=== PATIENT | male | born 1960 | race Caucasian/White ===

== ENCOUNTER 2016-07-02 07:58 | Inpatient (IN) | payer OTHER ==
[~2016-07-02] VITALS: Ht 170.2 cm; Wt 104.0 kg
[~2016-07-02 07:58] MED LIST: ASP81 PO; ATOR80TA75 PO; CARV12.579 PO; CLOP75TA27 PO; FURO40TA4 PO; GABA300C16 PO; HYDR-3670 PO; HYDR-906 PO; ISOS20TA19 PO; LANT3I SC; LISI10TA2 PO; MED4DP PO; NOVO3I SC; RANO10002 PO
[2016-07-02] MEDS ORDERED: SODIUM CHLORIDE 0.9% 1L BAG IV* STA (08:04)
[2016-07-02] MEDS ORDERED: ACETAMINOPHEN 325 MG TAB PO STA (08:04)
[2016-07-02] MEDS ORDERED: CEFEPIME 2GM/50 ML (PMX) 50 ML IVPB STA (08:04)
--- NOTE | 2016-07-02 08:21 | RADRPT ---
PROCEDURE: XR Chest. CLINICAL INDICATION: Chest pain. Shortness of breath. TECHNIQUE: Single frontal chest x-ray. COMPARISON: 06/11/2016 FINDINGS: Focal consolidation is seen in the lateral periphery of the right mid lung zone, new when compared t o the prior study. Findings are consistent with new acute pneumonia. There is patchy atelectasis w ithin the lung bases bilaterally, stable over time. The cardiomediastinal silhouette is unchanged a nd unremarkable. Prominent epicardial fat pads are identified bilaterally. No pneumothorax is seen . No pleural effusion is identified. The surrounding osseous structures are unremarkable. IMPRESSION: 1. New acute pneumonia in the lateral periphery of the right mid lung. 2. Minor atelectasis in the lung bases, stable. RPTAT: PP .Marcus Felder MD, MD Date Time Electronically viewed and signed by .Marcus Felder MD, on 07/02/2016 08:20 .B/
[2016-07-02] MEDS ORDERED: VANCOMYCIN 1 GM (PMX) 250 ML IVPB ONE (08:30)
[2016-07-02] MEDS ORDERED: NOVO3I SC (08:50)
[2016-07-02 09:24] LABS: BASOPHILS % 0.2 % (0.0-2.0); EOSINOPHILS % 0.1 % (0.0-7.0); HEMATOCRIT 47.6 % (42.0-52.0); HEMOGLOBIN 15.9 g/dl (14.0-18.0); LYMPHOCYTES # 0.9 10^3/ul (0.8-2.9); LYMPHOCYTES % 6.8 % (15.0-51.0); MEAN CORPUSCULAR HEMOGLOBIN 26.5 pg (29.0-33.0); MEAN CORPUSCULAR HGB CONC 33.4 g/dl (32.0-37.0); MEAN CORPUSCULAR VOLUME 79.3 fl (82.0-101.0); MEAN PLATELET VOLUME 10.5 fl (7.4-10.4); MONOCYTE # 0.5 10^3/ul (0.3-0.9); MONOCYTES % 3.8 % (0.0-11.0); NEUTROPHIL # 11.6 10^3/ul (1.6-7.5); NEUTROPHILS % 89.1 % (39.0-77.0); PLATELET COUNT 150 10^3/UL (140-440); RED BLOOD COUNT 6.01 10^6/ul (4.70-6.10); RED CELL DISTRIBUTION WIDTH 17.1 % (11.5-14.5)
[2016-07-02 09:29] LABS: INR 1.1; PARTIAL THROMBOPLASTIN TIME 29.5 Sec (25.0-35.0); PROTIME 14.2 Sec (12.2-14.2); PT RATIO 1.1
[2016-07-02 09:30] LABS: ALBUMIN 3.6 g/dl (3.3-4.9); CONDITION 1; LH ANALYZER COMMENTS 1; SUSPECT 1
[2016-07-02 09:33] LABS: BILIRUBIN,INDIRECT 0.8 mg/dl (0-1.1); BILIRUBIN,TOTAL 0.8 mg/dl (0.2-1.3); CREATININE 1.65 mg/dl (0.61-1.24); POTASSIUM 5.6 mmol/L (3.5-5.1); TOTAL PROTEIN 7.5 g/dl (6.1-8.1)
[2016-07-02 09:34] LABS: CALCIUM 8.5 mg/dl (8.4-10.2)
[2016-07-02 09:45] LABS: TROPONIN-I 0.012 ng/ml (0.00-0.12)
[2016-07-02] MEDS ORDERED: ONDANSETRON 4 MG INJ IV PRN (10:00)
[2016-07-02] MEDS ORDERED: ACETAMINOPHEN 325 MG TAB PO PRN (10:00)
[2016-07-02 10:24] LABS: ALBUMIN/GLOBULIN RATIO 0.92
[2016-07-02] MEDS ORDERED: LEVOFLOXACIN 500MG/D5W (PMX) 100 ML IVPB SCH (11:00)
[2016-07-02] MEDS ORDERED: morphine 4 MG/ML VIAL IV STA (11:17)
[2016-07-02] MEDS ORDERED: DOCUSATE SODIUM 100 MG CAP PO PRN (11:30)
[2016-07-02] MEDS ORDERED: NACL 0.9% 3 ML SYG IV SCH (11:30)
[2016-07-02] MEDS ORDERED: ACETAMINOPHEN 650 MG SUPP PR PRN (11:30)
[2016-07-02 11:35] LABS: ADD UMIC YES; URINE BILIRUBIN (Dip) NEGATIVE (NEGATIVE); URINE BLOOD (Dip) 2+ (NEGATIVE); URINE COLOR LT. YELLOW (YELLOW); URINE KETONES (Dip) TRACE (NEGATIVE); URINE LEUKOCYTE ESTERASE (Dip) NEGATIVE (NEGATIVE); URINE NITRITE (Dip) NEGATIVE (NEGATIVE); URINE TOTAL PROTEIN (Dip) 4+ (NEGATIVE); URINE UROBILINOGEN (Dip) 0.2 E.U./dL (0.1-1.0)
[2016-07-02 11:47] VITALS: TEMP 98.5
[2016-07-02 11:54] LABS: URINE RBCS 0-2 /HPF (0)
[2016-07-02] MEDS ORDERED: DEXTROSE 50% 50 ML SYRINGE IV PRN ×2 (12:00)
[2016-07-02] MEDS ORDERED: GLUCOSE GEL 15 GRAM TUBE BUCCAL PRN (12:00)
[2016-07-02] MEDS ORDERED: GLUCOSE GEL 15 GRAM TUBE PO PRN ×2 (12:00)
[2016-07-02] MEDS ORDERED: CEFTRIAXONE 1 GM/50 ML (PMX) 50 ML IVPB SCH (12:00)
[2016-07-02] MEDS ORDERED: GLUCAGON 1 MG INJ IM PRN (12:00)
[2016-07-02] MEDS: INSULIN ASPART [NOVOLOG] 3 ML PEN SC SCH ×5 (13:24→20:30)
--- NOTE | 2016-07-02 13:27 | ERA ---
ER Documentation Chief Complaint Date/Time DATE: 07/02/16 TIME: 13:25 Chief Complaint CHEST PAIN/SOB SINCE LAST NIGHT;SL NITRO @ 0700 HELPED CP HPI Patient is a 55-year-old male with coronary disease who presents with chest pain and shortness of breath. He has had 2 days of worsening cold symptoms. He is fever. He has had a cough as well. His primary doctor is Dr. Garcia Chau. He did try nitroglycerin at 7 AM which helped with his pain. ROS All systems reviewed and are negative except as per history of present illness. Medications Home Meds Active Scripts Isosorbide Dinitrate* (Isosorbide Dinitrate*) 20 Mg Tablet, 20 MG PO TID for 30 Days, #90 TAB Prov:CRISTIN COMBS MD 06/13/16 Carvedilol* (Carvedilol*) 12.5 Mg Tablet, 6.25 MG PO BID for 30 Days, #60 TAB Prov:CRISTIN COMBS MD 06/13/16 Insulin Glargine* (Lantus*) 100 Unit/Ml Soln, 33 UNIT SC HS for 30 Days Prov:JOHN VALE NP 05/08/16 Furosemide (Lasix) 40 Mg Tab, 40 MG PO DAILY for 30 Days, TAB Prov:JESE MCCOY 03/26/16 Lisinopril* (Lisinopril*) 10 Mg Tablet, 10 MG PO DAILY, #30 TAB Prov:JESE MCCOY 03/26/16 Hydralazine Hcl* (Hydralazine Hcl*) 10 Mg Tablet, 10 MG PO Q8 for 30 Days, TAB Prov:JESE MCCOY 03/26/16 Gabapentin* (Gabapentin*) 300 Mg Capsule, 300 MG PO TID for 30 Days, CAP Prov:JESE MCCOY 03/26/16 Clopidogrel Bisulfate (Clopidogrel) 75 Mg Tablet, 75 MG PO DAILY for 30 Days, TAB Prov:JESE MCCOY 03/26/16 Atorvastatin* (Atorvastatin*) 80 Mg Tablet, 80 MG PO HS for 30 Days, TAB Prov:JESE MCCOY 03/26/16 Aspirin (Aspirin) 81 Mg Chew, 81 MG PO DAILY, #30 TAB 12 Refills Prov:JESE MCCOY 03/26/16 Reported Medications Insulin Aspart* (Novolog Insulin Pen*) 100 Unit/Ml Soln, 13 UNIT SC AC MEALS, EA 07/02/16 Ranolazine* (Ranexa*) 1,000 Mg Tab.sr.12h, 1000 MG PO Q12, TAB 06/08/16 Discontinued Scripts Methylprednisolone* (Medrol* DOSE PACK) 4 Mg/Dose-Pack Tab.ds.pk, 4 MG PO . DIRECTED for 7 Days, PACKET Prov:CRISTIN COMBS MD 06/13/16 Insulin Aspart* (Novolog Insulin Pen*) 100 Unit/Ml Soln, 10 UNIT SC WITH MEALS for 30 Days Prov:VALE,JOHN V. WAG[employer] WASHER 05/08/16 Hydrocodone/Acetaminophen ([place] 5-325 Tablet) 1 Each Tablet, 1 EACH PO Q6H for PAIN, #20 TAB Prov:VALE,JOHN V. WAGON WASHER 05/08/16 Isosorbide Dinitrate* (Isosorbide Dinitrate*) 20 Mg Tablet, 20 MG PO TID for 30 Days, TAB Prov:JESE MCCOY 03/26/16 Allergies Allergies: Coded Allergies: No Known Allergy (Unverified , 07/02/16) PMhx/Soc History of Surgery: No (Kidney stones removal) Hx 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 Disorder: No Hx Respiratory Disorders: Yes (SOB) Hx Cardiac Disorders: Yes (Cardiomyopathy, VA, CAD) Hx Psychiatric Problems: No Hx Miscellaneous Medical Probl: Yes (10 Stents, Pulmonary HTN) Hx Alcohol Use: No Hx Substance Use: No Hx Tobacco Use: Yes (former smoker) Smoking Status: Former smoker FmHx Family History: diabetes Physical Exam Vitals Vital Signs Date Time Temp Pulse Resp B/P Pulse Ox O2 Delivery O2 Flow Rate FiO2 07/02/16 09:30 Nasal Cannula 2.0 07/02/16 09:30 96 20 157/82 96 Room Air 07/02/16 08:50 Nasal Cannula 2 07/02/16 08:01 101.5 99 18 193/84 89 Physical Exam Const: Moderate distress Head: Atraumatic Eyes: Normal Conjunctiva ENT: Normal External Ears, Nose and Mouth. Neck: Full range of motion..~ No meningismus. Resp: Decreased breath sounds bilaterally Cardio: Regular rate and rhythm, no murmurs Abd: Soft, non tender, non distended. Normal bowel sounds Skin: No petechiae or rashes Back: No midline or flank tenderness Ext: No cyanosis, or edema Neur: Awake and alert Psych: Normal Mood and Affect Result Diagram: 07/02/1604 07/02/16 0904 Results 24 hrs Laboratory Tests Test 07/02/16 09:04 Activated Partial Thromboplast Time 29.5Sec Alanine Aminotransferase (ALT/SGPT) 103IU/L Albumin 3.6g/dl Albumin/Globulin Ratio 0.92 Alkaline Phosphatase 208IU/L Anion Gap 17 Aspartate Amino Transf (AST/SGOT) 84IU/L Basophils # 0.010^3/ul Basophils % 0.2% Blood Morphology Comment Blood Urea Nitrogen 52mg/dl Calcium Level 8.5mg/dl Carbon Dioxide Level 25mmol/L Chloride Level 94mmol/L Creatinine 1.65mg/dl Differential Comment AUTO w/SCAN Direct Bilirubin 0.00mg/dl Eosinophils # 0.010^3/ul Eosinophils % 0.1% Globulin 3.90g/dl Glucose Level 395mg/dl Hematocrit 47.6% Hemoglobin 15.9g/dl INR International Normalized Ratio 1.10 Indirect Bilirubin 0.8mg/dl Lactic Acid Level 1.5mmol/L Lymphocytes # 0.910^3/ul Lymphocytes % 6.8% Mean Corpuscular Hemoglobin 26.5pg Mean Corpuscular Hemoglobin Concent 33.4g/dl Mean Corpuscular Volume 79.3fl Mean Platelet Volume 10.5fl Monocytes # 0.510^3/ul Monocytes % 3.8% Neutrophils # 11.610^3/ul Neutrophils % 89.1% Nucleated Red Blood Cells # 0.010^3/ul Nucleated Red Blood Cells % 0.0/100WBC Platelet Count 84586^3/UL Potassium Level 5.6mmol/L Prothrombin Time 14.2Sec Prothrombin Time Ratio 1.1 Red Blood Count 6.0110^6/ul Red Cell Distribution Width 17.1% Sodium Level 130mmol/L Total Bilirubin 0.8mg/dl Total Protein 7.5g/dl Troponin I 0.012ng/ml White Blood Count 13.010^3/ul Current Medications Medications (Trade) Dose Ordered Sig/Ca Route PRN Reason Start Time Stop Time Status Last Admin Dose Admin Sodium Chloride (NS) 3,410 ml BOLUS OVER 2 HOURS STAT IV* 07/02/16 08:04 07/02/16 08:05 DC 07/02/16 09:05 Acetaminophen 650 mg 650 mg ONCE STAT PO 07/02/16 08:04 07/02/16 08:06 DC 07/02/16 09:04 Cefepime HCl 50 ml @ 100 mls/hr ONCE STAT IVPB 07/02/16 08:04 07/02/16 08:33 DC 07/02/16 09:18 Vancomycin HCl (Vancocin) 250 ml @ 125 mls/hr ONCE ONCE IVPB 07/02/16 08:30 07/02/16 10:29 DC 07/02/16 11:41 Procedures/MDM EKG read by me: Rate/Rhythm: Regular rate and rhythm at a normal rate Intervals: Normal Impression: No evidence of ischemia or arrhythmia Chest X-ray 1V Interpreted by me: Soft Tissue: No acute abnormalities Bones: No acute abnormalities Mediastinum/Cardiac Silhouette/Lungs: Right upper lobe pneumonia Admit MDM: Patient's infectious symptoms have not stabilized and the patient is at risk of rapid decompensation. The patient will be admitted for careful hydration, antibiotic therapy, and infectious source control. Severe Sepsis criteria: Infectious source: Pneumonia End organ damage indicated by: Elevated LFTs Sepsis Management: Time of recognition of sepsis: Upon arrival Within 3 hours of recognition: Blood cultures x 2 before broad-spectrum antibiotics: Yes 30 ml/kg NS bolus Completed Initial lactate 1.5 Repeat lactate 1.2 Time of recognition of septic shock: No septic shock Septic Shock Assessment: Any lactic acid > 4.0 No Persistent hypotension (SBP < 90 or 40 mmHg drop, MAP < 65) despite 30 mL/kg IV fluid bolus No Volume Re-assessment for Septic Shock (post 30 ml/kg bolus): No septic shock at this time Persistent Hypotension Treatment: Comfort care No Central line Not Required Vasopressor started Not required I considered further perfusion assessment with CVP measurement, SCVO2, bedside ultrasound volume assessment, passive leg raise, trial of further fluid bolus. And proceeded with 30 ml/kg fluid bolus of NSS, broad spectrum antibiotics, and admission. Accepting Care Team Current data and ongoing care discussed. Admitting Physician: Dr. Ly Motion Picture Camera Operator(s): None Outstanding Data: Culture results Critical Care: Critical care time 35 minutes excluding all billable procedures Emergent fluid management while maintaining close respiratory support. Provision of immediate and broad-spectrum antibiotic therapy. Simultaneous assessment for possible sources in order to direct targeted therapy. Consideration for invasive and chemical support to prevent cardiopulmonary collapse. Departure Diagnosis: Primary Impression: Severe sepsis Additional Impression: Pneumonia Qualified Code: J18.9 - Pneumonia of right upper lobe due to infectious organism Condition: Serious VIRGEN SOTO MD Jul 02, 2016 13:27
[2016-07-02] MEDS: ACETAMINOPHEN 325 MG TAB PO PRN ×2 (14:25→22:25)
[2016-07-02] MEDS: GABAPENTIN 300 MG CAP PO SCH ×2 (14:25→20:26)
[2016-07-02] MEDS ORDERED: NA POLYST SULFON 15 GM/60 ML BTL PO ONE (14:30)
[2016-07-02] MEDS ORDERED: VANCOMYCIN IV PER PHARMACY XX SCH (14:30)
[2016-07-02] MEDS: ONDANSETRON 4 MG INJ IV PRN ×2 (14:42→21:12)
--- NOTE | 2016-07-02 14:51 | HP ---
Date/Time of Note Date/Time of Note DATE: 07/02/16 TIME: 14:24 Assessment/Plan VTE Prophylaxis VTE Prophylaxis Intervention: heparin Assessment/Plan Assessment/Plan 1. Pneumonia, likely community-acquired. -> Admit as inpatient. Start IV cefepime and vancomycin. Obtain cultures. Will start patient on bronchodilators, incentive spirometry and oxygen. 2. Sepsis secondary to pneumonia. Follow-up on cultures. We will administer fluid cautiously. Continue antibiotics. 3. Acute kidney injury on chronic kidney disease. SHERYL likely secondary to sepsis. -> Nephrology consultation has been called and we will follow-up with recommendation. Monitor renal function closely and avoid nephrotoxins as much as possible. 4. Hyperkalemia with SHERYL. We will follow-up with nephrology recommendation. 5. Hyponatremia. We will start gentle IV hydration. Follow-up with nephrology recommendation. Obtain urine studies. 6. Essential hypertension, uncontrolled now. Resume home medication. Hydralazine IV PRN for SBP greater than 160. 7. Coronary artery disease, status post multiple percutaneous coronary interventions. Resume home medications. 8. Congestive heart failure with systolic dysfunction, known ejection fraction of 45%. Resume Lasix, Coreg, Imdur, and aspirin. 9. Hyperglycemia with Type 2 diabetes. Will start patient on Accu-Cheks and insulin sliding scale. Resume Lantus and pre-meal insulin. Will also obtain diabetic education. 10. Dyslipidemia. Continue on statin. 11.Transaminase elevation likley 2/2 concurrent illness. Will monitor and consider gallbladder US if indicated. 12. Obesity. Weight reduction advised DVT prophylaxis: Heparin PUD prophylaxis: Pepcid PLAN: Patient will be treated with IV antibiotics. Follow-up with cultures. He will be placed on a carbohydrate controlled, renal diet. Diabetic education consult has been requested. Follow-up with a.m. labs, TSH, fasting lipid panel and A1c. Follow-up with nephrology recommendation. Approximately 50 minutes was spent on this history and physical. Case discussed with Dr. Kc. HPI/ROS Admit Date/Time Admit Date/Time Jul 02, 2016 at 09:58 Hx of Present Illness This is a 55-year-old male with a past medical history of coronary artery disease, essential hypertension, systolic congestive heart failure with known ejection fraction 45%, chronic kidney disease, hyperkalemia, type 2 diabetes, dyslipidemia, urolithiasis, cholecystectomy, appendectomy, thrombectomy for left leg DVT, who presented to the emergency room with complaints of a 2 day duration of cold symptoms including nonproductive cough, fever, headache and progressive shortness of breath. Apparently patient was admitted in [facility] in May 2016 when he had workup done for acute coronary syndrome and was ruled out. Patient denied chest pain, palpitation, loss of consciousness, dizziness, bowel or bladder irregularities, or other constitutional symptoms. In the emergency room, initial vital signs showed blood pressure 193/84, pulse rate 99. Chest x-ray with new acute pneumonia in the lateral periphery of the right mid lung. CBC with elevated white blood count 13,000. Lactic acid normal. BMP with sodium 130, potassium 5.6, BUN 52, creatinine 1.65 and blood glucose 395. Twelve-lead EKG with normal sinus rhythm without any acute ST or T -wave changes. Patient was treated with aggressive IV fluids, broad-spectrum IV antibiotics in the emergency room and was admitted for further evaluation. ROS A 12 point review of system was assessed and is negative other than what is mentioned in the HPI. PMH/Family/Social Past Medical History See HPI Past Surgical History See HPI Social History Patient denies history of alcohol, smoking or illicit drug use. Smoking Status: Former smoker Exam/Review of Systems Vital Signs Vitals Vital Signs Date Time Temp Pulse Resp B/P Pulse Ox O2 Delivery O2 Flow Rate FiO2 07/02/16 11:47 98.5 89 17 116/61 100 Nasal Cannula 3.0 Exam Exam General: Obese male, not in any acute distress . HEENT: Normocephalic, Atraumatic, No laceration or hematoma; Eyes: PEERL, Conjunctiva clear, Anicteric sclera Neck: Supple without any lymphadenopathy, nontender, no JVD, no carotid bruits, trachea midline, no thyromegaly Cardiac: S1, S2 auscultated, regular rhythm and rate, no mumurs or gallop Pulmonary: Diminished breath sound bibasilar. With increased work of breathing requiring oxygen via nasal cannula. Normal respiratory effort. No adventitious breath sounds GI: Abdomen normal to inspection. Soft, non tender, non- distended, no masses, no rebound tenderness or guarding. Bowel sounds active on all four quadrants Genitourinary: Deferred Extremities: No cyanosis, clubbing, or edema. Pulses [2+] bilaterally. Full ROM on all four extremities. No focal weakness appreciated. Neurologic: Alert to person, place, time, and situation. Affect appropriate, intact sensation. Skin: Clean,dry, and intact. No ecchymosis, no rashes, or lesions Labs Result Diagram: 07/02/1690307/02/16903 Medications Medications Current Medications Aspirin (Aspirin) 81 mg DAILY PO ; Start 07/03/16 at 09:00 Carvedilol (Coreg) 6.25 mg BID PO ; Start 07/02/16 at 21:00 Clopidogrel Bisulfate (plaVIX) 75 mg DAILY PO ; Start 07/03/16 at 09:00 Furosemide (Lasix) 40 mg DAILY PO ; Start 07/03/16 at 09:00 Gabapentin (Neurontin) 300 mg TID PO ; Start 07/02/16 at 13:00 Hydralazine HCl (Apresoline) 10 mg Q8 PO ; Start 07/02/16 at 14:00 Insulin Glargine (Lantus) 33 unit HS SC ; Start 07/02/16 at 21:00 Isosorbide Dinitrate (Isordil) 20 mg TID PO ; Start 07/02/16 at 13:00 Ranolazine (Ranexa) 1,000 mg Q12 PO ; Start 07/02/16 at 21:00 Atorvastatin Calcium 80 mg 80 mg HS PO ; Start 07/02/16 at 21:00 Ceftriaxone Sodium (Rocephin) 50 ml @ 100 mls/hr Q24H IVPB Last administered on 07/02/16at 13:26; Admin Dose 100 MLS/HR; Start 07/02/16 at 12:00 Ondansetron HCl (Zofran Inj) 4 mg Q6H PRN IV NAUSEA AND/OR VOMITING; Start at 11:30 Acetaminophen (Tylenol Tab) 650 mg Q6H PRN PO PAIN LEVEL 1-3 OR FEVER; Start 07/02/16 at 11:30 Acetaminophen (Tylenol Supp) 650 mg Q6H PRN SC PAIN LEVEL 1-3 OR FEVER; Start 07/02/16 at 11:30 Acetaminophen/ Hydrocodone Bitart ([place] (5/325)) 1 tab Q6H PRN PO MODERATE PAIN LEVEL 4-6; Start 07/02/16 at 11:30 Docusate Sodium (Colace) 100 mg Q12H PRN PO CONSTIPATION; Start 07/02/16 at 11 :30 Famotidine (Pepcid) 20 mg Q12 PO ; Start 07/02/16 at 21:00 Heparin Sodium (Porcine) (Heparin (5000 Units/0.5 ml)) 5,000 unit Q12 SC ; Start 07/02/16 at 21:00 Miscellaneous Information 1 ea NOTE XX ; Start 07/02/16 at 12:00 Glucose (Glutose) 15 gm Q15M PRN PO DECREASED GLUCOSE; Start 07/02/16 at 12:00 Glucose (Glutose) 22.5 gm Q15M PRN PO DECREASED GLUCOSE; Start 07/02/16 at 12: 00 Dextrose (D50w Syringe) 25 ml Q15M PRN IV DECREASED GLUCOSE; Start 07/02/16 at 12:00 Dextrose (D50w Syringe) 50 ml Q15M PRN IV DECREASED GLUCOSE; Start 07/02/16 at 12:00 Glucagon (Glucagen) 1 mg Q15M PRN IM DECREASED GLUCOSE; Start 07/02/16 at 12: 00 Glucose 15 gm 15 gm Q15M PRN BUCCAL DECREASED GLUCOSE; Start 07/02/16 at 12:00 Cefepime HCl (Maxipime 1gm/50 ml (Pmx)) 50 ml @ 100 mls/hr Q12 IVPB ; Start at 21:00; Status JOHN FONTANA NP Jul 02, 2016 14:35
[2016-07-02] MEDS: SOD CHLORIDE 0.9% 1,000 ML IV SCH (15:00)
[2016-07-02] MEDS ORDERED: VANCOMYCIN 1 GM in NS 250 ML IVPB SCH (15:00)
[2016-07-02] MEDS ORDERED: hydrALAzine 20 MG INJ IV PRN (15:00)
[2016-07-02 15:43] LABS: TROPONIN-I 0.019 ng/ml (0.00-0.12)
[2016-07-02 15:47] LABS: CK-MB 1.68 ng/ml (0.0-2.4)
[2016-07-02] MEDS: ISOSORBIDE DINITRATE 20 MG TAB PO SCH ×2 (17:23→20:25)
[2016-07-02] MEDS: HYDROCODONE/APAP (5/325) TAB PO PRN (17:24)
[2016-07-02] MEDS: ALBUTEROL/IPRATROPIUM (NEB) 3 ML AMP HHN SCH ×2 (18:10→20:23)
[2016-07-02 18:17] LABS: CK-MB 1.9 ng/ml (0.0-2.4)
[2016-07-02 18:18] LABS: TROPONIN-I 0.096 ng/ml (0.00-0.12)
[2016-07-02 18:48] VITALS: Ht 170.2 cm; Wt 104.0 kg
[2016-07-02 18:53] VITALS: BP 121/59; PULSE 90; RESP 20
[2016-07-02 20:00] VITALS: BP 147/70; PULSE 105; RESP 16
[2016-07-02] MEDS: FAMOTIDINE 20 MG TAB PO SCH (20:24)
[2016-07-02] MEDS: ATORVASTATIN 80 MG TAB PO SCH (20:25)
[2016-07-02] MEDS: INSULIN GLARGINE [LANtus] 3 ML PEN SC SCH (20:29)
[2016-07-02] MEDS: CEFEPIME 1GM/50 ML (PMX) 50 ML IVPB SCH (20:30)
[2016-07-02] MEDS: HEPARIN 5,000 UNIT/0.5 ML SYG SC SCH (20:34)
[2016-07-02] MEDS: morphine 2 MG INJ IV PRN (21:13)
--- NOTE | 2016-07-02 22:13 | QN ---
Documentation Comment [id number] ROTH MD Jul 02, 2016 22:13
[2016-07-02 22:20] VITALS: BP 139/69; PULSE 102; RESP 18
[2016-07-02] MEDS: RANOLAZINE (SR) 500 MG TAB PO SCH (22:22)
--- NOTE | 2016-07-03 00:24 | CONS ---
DATE OF ADMISSION: 07/02/2016 DATE OF CONSULTATION: TYPE OF CONSULTATION: Nephrology. Thank you, Dr. Chawla, for kindly asking me to see this patient in nephrology consultation. HISTORY OF PRESENT ILLNESS: The patient with history of CKD, presented with pneumonia, sepsis, noted to have electrolyte imbalance including hyponatremia, hyperkalemia, so nephrology consultation requested. The patient's old chart is reviewed. The patient previously was diagnosed with CKD. The patient's diagnoses include hyperkalemia, history of CKD, hypertension, dyslipidemia, diabetes mellitus. ALLERGY HISTORY: NEGATIVE. FAMILY HISTORY: Negative. SOCIAL HISTORY: Noncontributory. MEDICATION HISTORY: The patient is on: 1. Aspirin. 2. Lipitor. 3. Coreg. 4. Plavix. 5. Lasix. 6. Gabapentin. 7. Hydralazine. 8. Insulin. 9. Isosorbide. 10. Lisinopril. 11. Ranexa. REVIEW OF SYSTEMS: HEENT: Unremarkable. RESPIRATORY: Short of breath. CARDIOVASCULAR: Unremarkable. ABDOMEN: Unremarkable. PHYSICAL EXAMINATION: GENERAL: The patient is awake, alert. The patient has mild short of breath, also overweight. VITAL SIGNS: Pulse 90, blood pressure 121/59. HEAD: Atraumatic, normocephalic. Pupils equal, reactive to light. NECK: Supple. No JVD. LUNGS: Rhonchi and crepitations noted. CARDIOVASCULAR: S1, S2 normal. ABDOMEN: Soft, obese, bowel sounds were palpable. No hepatosplenomegaly. EXTREMITIES: There is no cyanosis, clubbing. Edema, trace noted. CENTRAL NERVOUS SYSTEM: The patient is awake, alert. No deficit. LABORATORY DATA: WBC 13, hematocrit 47.6. The patient's potassium was 5.6, sodium 130, BUN _, creatinine 1.65, glucose 295. IMPRESSION: 1. The patient has pneumonia. 2. Hyperkalemia. 3. Underlying chronic kidney disease. 4. Diabetes mellitus. 5. Hypertension. 6. Anemia. 7. Hyponatremia. 8. Obesity. 9. Dyslipidemia. PLAN: Continue sodium and creatinine. Gentle IV fluid. Kayexalate. The patient's medication. The patient is on vancomycin, aspirin, Plavix. The patient on furosemide p.o. Lantus insulin. The patient's chest x-ray shows pneumonia, mild atelectasis at the lung base. The patient's electrolytes will be monitored. Thank you, Dr. Chawla, for kindly asking me to see this patient in nephrology consultation. Dictated By: ROBB ALBERT MD BS/NTS Conf#: [id number] DID#: [id number] CC: NARENDRA CHAWLA MD;*EndCC* MTDD
[2016-07-03] MEDS: ACCUCHECK XX SCH (02:00)
[2016-07-03 02:49] VITALS: BP 117/56; PULSE 104; RESP 20
[2016-07-03] MEDS: morphine 2 MG INJ IV PRN ×5 (02:51→22:32)
[2016-07-03 04:00] VITALS: BP 126/78; PULSE 98; RESP 20
[2016-07-03] MEDS: HYDROCODONE/APAP (5/325) TAB PO PRN (04:54)
[2016-07-03 06:11] LABS: ALBUMIN 2.6 g/dl (3.3-4.9)
[2016-07-03 06:12] LABS: POTASSIUM 4.3 mmol/L (3.5-5.1)
[2016-07-03 06:14] LABS: BILIRUBIN,INDIRECT 0.3 mg/dl (0-1.1); BILIRUBIN,TOTAL 0.3 mg/dl (0.2-1.3); CREATININE 1.4 mg/dl (0.61-1.24); TOTAL PROTEIN 5.2 g/dl (6.1-8.1)
[2016-07-03 06:15] LABS: CALCIUM 7.4 mg/dl (8.4-10.2); MAGNESIUM 1.6 mg/dl (1.7-2.5); PHOSPHORUS 2.9 mg/dl (2.5-4.9)
[2016-07-03 06:16] LABS: CHOL/HDL RATIO 3.3 RATIO
[2016-07-03 06:26] LABS: BASOPHILS % 0.2 % (0.0-2.0); HEMOGLOBIN 13.7 g/dl (14.0-18.0); LYMPHOCYTES # 0.9 10^3/ul (0.8-2.9); LYMPHOCYTES % 8.2 % (15.0-51.0); MEAN CORPUSCULAR HEMOGLOBIN 26.7 pg (29.0-33.0); MEAN CORPUSCULAR HGB CONC 33.5 g/dl (32.0-37.0); MEAN CORPUSCULAR VOLUME 79.7 fl (82.0-101.0); MEAN PLATELET VOLUME 10.3 fl (7.4-10.4); MONOCYTES % 9.2 % (0.0-11.0); NEUTROPHILS % 82.4 % (39.0-77.0); PLATELET COUNT 151 10^3/UL (140-440); RED BLOOD COUNT 5.14 10^6/ul (4.70-6.10); RED CELL DISTRIBUTION WIDTH 16.9 % (11.5-14.5); UNCORRECTED WBC 10.9 10^3/ul (4.8-10.8); WHITE BLOOD COUNT 10.9 10^3/ul (4.8-10.8)
[2016-07-03 06:39] LABS: CONDITION 1; LH ANALYZER COMMENTS 1
[2016-07-03 06:45] LABS: THYROID STIMULATING HORMONE 0.573 MIU/L (0.465-4.680)
[2016-07-03] MEDS: INSULIN ASPART [NOVOLOG] 3 ML PEN SC SCH ×8 (07:30→21:27)
[2016-07-03 08:00] VITALS: BP 132/71; PULSE 94; RESP 22
[2016-07-03] MEDS: ACETAMINOPHEN 325 MG TAB PO PRN (08:37)
[2016-07-03] MEDS: CEFEPIME 1GM/50 ML (PMX) 50 ML IVPB SCH ×3 (09:00→21:23)
[2016-07-03] MEDS: ALBUTEROL/IPRATROPIUM (NEB) 3 ML AMP HHN SCH ×4 (09:02→19:34)
--- NOTE | 2016-07-03 09:12 | PN ---
Date/Time of Note Date/Time of Note DATE: 07/03/16 TIME: 08:58 Assessment/Plan VTE Prophylaxis VTE Prophylaxis Intervention: heparin Lines/Catheters IV Catheter Type (from Nrsg): Peripheral IV Assessment/Plan Assessment/Plan 1. Pneumonia, likely community-acquired. -> Improving / still with basal crackles and still requiring O2 / cont abx 2. Sepsis secondary to pneumonia: Improving / continue abx / pain control/ antiemetics/ antipyretics/ supportive care 3. Acute kidney injury on chronic kidney disease. SHERYL likely secondary to sepsis: creatinine improved -> Appreciate Nephrology consultation / Monitor renal function closely and avoid nephrotoxins as much as possible. ->probable underlying diabetic nephropathy 4. Hyperkalemia with SHERYL: resolevd 5. Hyponatremia: improved 6. Essential hypertension: improved control on isordil / hydralazine / coreg / lasix 7. Coronary artery disease, status post multiple percutaneous coronary interventions: On ASA/ Plavix/ Statin / BB / hydralazine/nitrate combo 8. Congestive heart failure with systolic dysfunction, known ejection fraction of 45%. Resume Lasix, Coreg, Imdur, and aspirin. 9. Hyperglycemia with Type 2 diabetes. A1C 9.8: non compliance Improving control while here, fasting levels still elevated , continue home doses for now , tailor therapy if no improvement by tomorrow. Diabetic education consult obtained and pending. 10. Dyslipidemia. on Statin / see #12 11. Obesity. Weight reduction advised / calorie controlled diet 12. Elevated liver enzymes Patient's USS in november showed no fatty liver or cirrhosis, may be statin induced, however patient needs statin for cardiac co-morbidities Serially monitor / levels have increased since April / Get Hepatitis panel D/w cardiology, patient was on Lipitor at home, may need to be discharged on something milder like Simvastatin. DVT prophylaxis: Heparin PUD prophylaxis: Pepcid Subjective 24 Hr Interval Summary Free Text/Dictation Patient seen and examined. feels slightly better Exam/Review of Systems Vital Signs Vitals Vital Signs Date Time Temp Pulse Resp B/P Pulse Ox O2 Delivery O2 Flow Rate FiO2 07/03/16 04:00 99.0 98 20 126/78 98 Nasal Cannula 2.0 Intake and Output 07/02/16 07/02/16 07/03/16 14:59 22:59 06:59 Intake Total 300 ml 1025 ml 1180 ml Output Total 700 ml Balance 300 ml 1025 ml 480 ml Exam Constitutional: alert, oriented Psych: nl mood/affect Eyes: PERRL ENMT: mucosa pink and moist Neck: non-tender Respiratory: diminished breath sounds Cardiovascular: regular rate and rhythm, No murmurs/extra sounds Gastrointestinal: bowel sounds, non-tender, soft Extremities: No edema 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: nl mental status, nl speech, No focal weakness Skin: No rash or lesions Results Result Diagram: 07/03/16 0515 07/03/16 0515 Results 24 hrs Laboratory Tests Test 07/02/16 09:04 07/02/16 10:00 07/02/16 10:45 07/02/16 12:39 Activated Partial Thromboplast Time 29.5 Alanine Aminotransferase (ALT/SGPT) 103 H Albumin 3.6 Albumin/Globulin Ratio 0.92 Alkaline Phosphatase 208 H Anion Gap 17 H Aspartate Amino Transf (AST/SGOT) 84 H Basophils # 0.0 Basophils % 0.2 Blood Morphology Comment Blood Urea Nitrogen 52 H Calcium Level 8.5 Carbon Dioxide Level 25 Chloride Level 94 L Creatinine 1.65 H Differential Comment AUTO w/SCAN Direct Bilirubin 0.00 Eosinophils # 0.0 Eosinophils % 0.1 Globulin 3.90 H Glucose Level 395 H Hematocrit 47.6 Hemoglobin 15.9 INR International Normalized Ratio 1.10 Indirect Bilirubin 0.8 Lactic Acid Level 1.5 1.2 Lymphocytes # 0.9 Lymphocytes % 6.8 L Mean Corpuscular Hemoglobin 26.5 L Mean Corpuscular Hemoglobin Concent 33.4 Mean Corpuscular Volume 79.3 L Mean Platelet Volume 10.5 H Monocytes # 0.5 Monocytes % 3.8 Neutrophils # 11.6 H Neutrophils % 89.1 H Nucleated Red Blood Cells # 0.0 Nucleated Red Blood Cells % 0.0 Platelet Count 150 Potassium Level 5.6 H Prothrombin Time 14.2 Prothrombin Time Ratio 1.1 Red Blood Count 6.01 Red Cell Distribution Width 17.1 H Sodium Level 130 L Total Bilirubin 0.8 Total Protein 7.5 Troponin I 0.012 White Blood Count 13.0 #H Urine Bilirubin NEGATIVE Urine Clarity CLEAR Urine Color LT. YELLOW Urine Glucose 0.5% H Urine Hemoglobin 2+ H Urine Ketones TRACE Urine Leukocyte Esterase NEGATIVE Urine Microscopic RBC 0-2 Urine Microscopic WBC 0-2 Urine Nitrite NEGATIVE Urine Osmolality 526 Urine Random Sodium < 13 L Urine Specific [place] 1.025 Urine Total Protein 4+ H Urine Urobilinogen 0.2 E.U./dL Urine pH 5.5 Bedside Glucose 339 H Test 07/02/16 14:48 07/02/16 16:43 07/02/16 17:40 07/02/16 19:42 Creatine Kinase 83 95 Creatine Kinase Index 2.0 2.0 Creatinine Kinase MB (Mass) 1.68 1.90 Lactic Acid Level 2.4 H Troponin I 0.019 0.096 Bedside Glucose 266 H 204 Osmolality 306 H Test 07/03/16 01:42 07/03/16 05:15 07/03/16 08:06 Bedside Glucose 180 210 Alanine Aminotransferase (ALT/SGPT) 106 H Albumin 2.6 #L Albumin/Globulin Ratio 1.00 Alkaline Phosphatase 216 H Anion Gap 14 Aspartate Amino Transf (AST/SGOT) 84 H Basophils # 0.0 Basophils % 0.2 Blood Morphology Comment Blood Urea Nitrogen 44 H Calcium Level 7.4 L Carbon Dioxide Level 24 Chloride Level 99 Cholesterol Level 124 Cholesterol/HDL Ratio 3.3 Creatinine 1.40 H Direct Bilirubin 0.00 Eosinophils # 0.0 Eosinophils % 0.0 Globulin 2.60 Glucose Level 194 # HDL Cholesterol 37 Hematocrit 41.0 L Hemoglobin 13.7 L Hemoglobin A1c 9.8 H Indirect Bilirubin 0.3 LDL Cholesterol, Calculated 74 Lactic Acid Level 1.1 Lymphocytes # 0.9 Lymphocytes % 8.2 L Magnesium Level 1.6 L Mean Corpuscular Hemoglobin 26.7 L Mean Corpuscular Hemoglobin Concent 33.5 Mean Corpuscular Volume 79.7 L Mean Platelet Volume 10.3 Monocytes # 1.0 H Monocytes % 9.2 Neutrophils # 9.0 H Neutrophils % 82.4 H Nucleated Red Blood Cells # 0.0 Nucleated Red Blood Cells % 0.0 Phosphorus Level 2.9 Platelet Count 151 Potassium Level 4.3 Red Blood Count 5.14 Red Cell Distribution Width 16.9 H Sodium Level 133 L Thyroid Stimulating Hormone (TSH) 0.573 Total Bilirubin 0.3 Total Protein 5.2 #L Triglycerides Level 66 White Blood Count 10.9 H Medications Medications Current Medications Aspirin (Aspirin) 81 mg DAILY PO ; Start 07/03/16 at 09:00 Carvedilol (Coreg) 6.25 mg BID PO Last administered on 07/02/16at 20:25; Admin Dose 6.25 MG; Start 07/02/16 at 21:00 Clopidogrel Bisulfate (plaVIX) 75 mg DAILY PO ; Start 07/03/16 at 09:00 Furosemide (Lasix) 40 mg DAILY PO ; Start 07/03/16 at 09:00 Gabapentin (Neurontin) 300 mg TID PO Last administered on 07/02/16at 20:26; Admin Dose 300 MG; Start 07/02/16 at 13:00 Hydralazine HCl (Apresoline) 10 mg Q8 PO Last administered on 07/02/16 22:25 ; Admin Dose 10 MG; Start 07/02/16 at 14:00 Insulin Glargine (Lantus) 33 unit HS SC Last administered on 07/02/16 20:29; Admin Dose 33 UNIT; Start 07/02/16 at 21:00 Isosorbide Dinitrate (Isordil) 20 mg TID PO Last administered on 07/02/16 20: 25; Admin Dose 20 MG; Start 07/02/16 at 13:00 Ranolazine (Ranexa) 1,000 mg Q12 PO Last administered on 07/02/16at 22:22; Admin Dose 1,000 MG; Start 07/02/16 at 21:00 Atorvastatin Calcium (Lipitor) 80 mg HS PO Last administered on 07/02/16 20: 25; Admin Dose 80 MG; Start 07/02/16 at 21:00 Ondansetron HCl (Zofran Inj) 4 mg Q6H PRN IV NAUSEA AND/OR VOMITING Last administered on 07/02/16at 21:12; Admin Dose 4 MG; Start 07/02/16 at 11:30 Acetaminophen (Tylenol Tab) 650 mg Q6H PRN PO PAIN LEVEL 1-3 OR FEVER Last administered on 07/03/16 08:37; Admin Dose 650 MG; Start 07/02/16 at 11:30 Acetaminophen (Tylenol Supp) 650 mg Q6H PRN [place] PAIN LEVEL 1-3 OR FEVER; Start 07/02/16 at 11:30 Acetaminophen/ Hydrocodone Bitart ([place] (5/325)) 1 tab Q6H PRN PO MODERATE PAIN LEVEL 4-6 Last administered on 07/03/16at 04:54; Admin Dose 1 TAB; Start 07/02/16 at 11:30 Docusate Sodium (Colace) 100 mg Q12H PRN PO CONSTIPATION; Start 07/02/16 at 11 :30 Famotidine (Pepcid) 20 mg Q12 PO Last administered on 07/02/16at 20:24; Admin Dose 20 MG; Start 07/02/16 at 21:00 Heparin Sodium (Porcine) (Heparin (5000 Units/0.5 ml)) 5,000 unit Q12 SC Last administered on 07/02/16at 20:34; Admin Dose 5,000 UNIT; Start 07/02/16 at 21: 00 Miscellaneous Information 1 ea NOTE XX ; Start 07/02/16 at 12:00 Glucose (Glutose) 15 gm Q15M PRN PO DECREASED GLUCOSE; Start 07/02/16 at 12:00 Glucose (Glutose) 22.5 gm Q15M PRN PO DECREASED GLUCOSE; Start 07/02/16 at 12: 00 Dextrose (D50w Syringe) 25 ml Q15M PRN IV DECREASED GLUCOSE; Start 07/02/16 at 12:00 Dextrose (D50w Syringe) 50 ml Q15M PRN IV DECREASED GLUCOSE; Start 07/02/16 at 12:00 Glucagon (Glucagen) 1 mg Q15M PRN IM DECREASED GLUCOSE; Start 07/02/16 at 12: 00 Glucose 15 gm 15 gm Q15M PRN BUCCAL DECREASED GLUCOSE; Start 07/02/16 at 12:00 Cefepime HCl (Maxipime 1gm/50 ml (Pmx)) 50 ml @ 100 mls/hr Q12 IVPB Last administered on 07/02/16at 20:30; Admin Dose 100 MLS/HR; Start 07/02/16 at 21: 00 Hydralazine HCl 10 mg 10 mg Q6H PRN IV SBP>160; Start 07/02/16 at 15:00 Sodium Chloride 1,000 ml @ 40 mls/hr Q24H IV Last administered on 07/02/16at 15:00; Admin Dose 40 MLS/HR; Start 07/02/16 at 15:00 Vancomycin HCl/ Sodium Chloride (Vancocin/NS) 250 ml @ 83.333 mls/ hr Q24H IVPB ; Start 07/03/16 at 10:00 Morphine Sulfate (morphine) 2 mg Q4H PRN IV PAIN Last administered on at 08:36; Admin Dose 2 MG; Start 07/02/16 at 21:00 Diagnostic Test (Pha) (Accucheck) 1 ea 02 XX ; Start 07/03/16 at 02:00 Procedures Procedures PROCEDURE: XR Chest. CLINICAL INDICATION: Chest pain. Shortness of breath. TECHNIQUE: Single frontal chest x-ray. COMPARISON: 06/11/2016 FINDINGS: Focal consolidation is seen in the lateral periphery of the right mid lung zone , new when compared to the prior study. Findings are consistent with new acute pneumonia. There is patchy atelectasis within the lung bases bilaterally, stable over time. The cardiomediastinal silhouette is unchanged and unremarkable. Prominent epicardial fat pads are identified bilaterally. No pneumothorax is seen. No pleural effusion is identified. The surrounding osseous structures are unremarkable. IMPRESSION: 1. New acute pneumonia in the lateral periphery of the right mid lung. 2. Minor atelectasis in the lung bases, stable. RPTAT: PP .Marcus Felder MD, MD Date Time Electronically viewed and signed by .Marcus Felder MD, on 07/02/2016 08:20 PROCEDURE: US Abdomen (right upper quadrant). CLINICAL INDICATION: Right upper quadrant abdomen pain. TECHNIQUE: Multiple real-time longitudinal and transverse images of the right upper quadrant of the abdomen were acquired utilizing a curved array transducer. Images were reviewed on a high-resolution PACS workstation. COMPARISON: None FINDINGS: The liver is normal in size and echogenicity. There is no focal hepatic lesion. Color Doppler and pulsed Doppler sonography demonstrate normal antegrade flow in the portal vein. The gallbladder is surgically absent. The bile ducts are normal with the common hepatic duct measuring 2.9 mm in diameter. The visualized portions of the pancreas are unremarkable with obscuration of the tail of the pancreas. No free fluid is present. The right kidney measures 12.2 cm. There is normal echogenicity of the right kidney. There is no perinephric fluid collection. No hydronephrosis, mass, or calculus is seen. IMPRESSION: 1. Status post cholecystectomy. 2. Otherwise normal right upper quadrant abdomen ultrasound. RPTAT: QQ .Jimmy Carpenter MD, Date Time Electronically viewed and signed by .Jimmy Carpenter MD, on 11/26/2015 18:20 TAMIKA ALBA Jul 03, 2016 09:10
[2016-07-03] MEDS ORDERED: MAGNESIUM SULFATE 2 GM/50 ML 50 ML IVPB ONE (10:00)
[2016-07-03] MEDS: ASPIRIN 81 MG TAB PO SCH (10:13)
[2016-07-03] MEDS: ISOSORBIDE DINITRATE 20 MG TAB PO SCH ×3 (10:14→21:22)
[2016-07-03] MEDS: FAMOTIDINE 20 MG TAB PO SCH ×2 (10:15→21:20)
[2016-07-03] MEDS: GABAPENTIN 300 MG CAP PO SCH ×3 (10:15→21:20)
[2016-07-03] MEDS: FUROSEMIDE 40 MG TAB PO SCH (10:15)
[2016-07-03] MEDS: CLOPIDOGREL 75 MG TAB PO SCH (10:15)
[2016-07-03] MEDS: RANOLAZINE (SR) 500 MG TAB PO SCH ×2 (10:15→21:20)
[2016-07-03] MEDS: HEPARIN 5,000 UNIT/0.5 ML SYG SC SCH ×2 (10:16→21:25)
[2016-07-03] MEDS: VANCOMYCIN 1.5 GM in SOD CHLORIDE 0.9% 250 ML IVPB SCH (10:24)
[2016-07-03] MEDS: ONDANSETRON 4 MG INJ IV PRN (12:46)
[2016-07-03] MEDS: SOD CHLORIDE 0.9% 1,000 ML IV SCH (15:00)
[2016-07-03] MEDS ORDERED: BACLOFEN 10 MG TAB PO PRN (19:00)
--- NOTE | 2016-07-03 19:58 | CONS ---
Date/Time of Note Date/Time of Note DATE: 07/03/16 TIME: 19:57 Assessment/Plan Assessment/Plan Chief Complaint/Hosp Course IMPRESSION: 1. The patient has pneumonia. 2. Hyperkalemia. 3. Underlying chronic kidney disease. 4. Diabetes mellitus. 5. Hypertension. 6. Anemia. 7. Hyponatremia. 8. Obesity. 9. Dyslipidemia. plan f/u bmp Problems: Consultation Date/Type/Reason Admit Date/Time Jul 02, 2016 at 09:58 Initial Consult Date Type of Consultation: renal 24 HR Interval Summary Constitutional: no complaints Exam/Review of Systems Vital Signs Vitals Vital Signs Date Time Temp Pulse Resp B/P Pulse Ox O2 Delivery O2 Flow Rate FiO2 07/03/16 19:35 107 24 87 21 07/03/16 19:35 5.0 07/03/16 16:36 Nasal Cannula 07/03/16 10:00 97.8 07/03/16 08:00 132/71 Intake and Output 07/02/16 07/02/16 07/03/16 15:00 23:00 07:00 Intake Total 300 ml 1025 ml 1180 ml Output Total 700 ml Balance 300 ml 1025 ml 480 ml Exam Respiratory: diminished breath sounds Cardiovascular: regular rate and rhythm Gastrointestinal: soft Genitourinary - Male: CVA tenderness Results Result Diagram: 07/03/1615 07/03/16 0515 Results 24 hrs Laboratory Tests Test 07/03/16 01:42 07/03/16 05:15 07/03/16 08:06 07/03/16 12:13 Bedside Glucose 180 210 236 H Alanine Aminotransferase (ALT/SGPT) 106 H Albumin 2.6 #L Albumin/Globulin Ratio 1.00 Alkaline Phosphatase 216 H Anion Gap 14 Aspartate Amino Transf (AST/SGOT) 84 H Basophils # 0.0 Basophils % 0.2 Blood Morphology Comment Blood Urea Nitrogen 44 H Calcium Level 7.4 L Carbon Dioxide Level 24 Chloride Level 99 Cholesterol Level 124 Cholesterol/HDL Ratio 3.3 Creatinine 1.40 H Direct Bilirubin 0.00 Eosinophils # 0.0 Eosinophils % 0.0 Globulin 2.60 Glucose Level 194 # HDL Cholesterol 37 Hematocrit 41.0 L Hemoglobin 13.7 L Hemoglobin A1c 9.8 H Indirect Bilirubin 0.3 LDL Cholesterol, Calculated 74 Lactic Acid Level 1.1 Lymphocytes # 0.9 Lymphocytes % 8.2 L Magnesium Level 1.6 L Mean Corpuscular Hemoglobin 26.7 L Mean Corpuscular Hemoglobin Concent 33.5 Mean Corpuscular Volume 79.7 L Mean Platelet Volume 10.3 Monocytes # 1.0 H Monocytes % 9.2 Neutrophils # 9.0 H Neutrophils % 82.4 H Nucleated Red Blood Cells # 0.0 Nucleated Red Blood Cells % 0.0 Phosphorus Level 2.9 Platelet Count 151 Potassium Level 4.3 Red Blood Count 5.14 Red Cell Distribution Width 16.9 H Sodium Level 133 L Thyroid Stimulating Hormone (TSH) 0.573 Total Bilirubin 0.3 Total Protein 5.2 #L Triglycerides Level 66 White Blood Count 10.9 H Test 07/03/16 16:57 Bedside Glucose 225 H Medications Medications Current Medications Aspirin (Aspirin) 81 mg DAILY PO Last administered on 07/03/16 10:13; Admin Dose 81 MG; Start 07/03/16 at 09:00 Carvedilol (Coreg) 6.25 mg BID PO Last administered on 07/03/16 10:14; Admin Dose 6.25 MG; Start 07/02/16 at 21:00 Clopidogrel Bisulfate (plaVIX) 75 mg DAILY PO Last administered on 07/03/16 10:15; Admin Dose 75 MG; Start 07/03/16 at 09:00 Furosemide (Lasix) 40 mg DAILY PO Last administered on 07/03/16 10:15; Admin Dose 40 MG; Start 07/03/16 at 09:00 Gabapentin (Neurontin) 300 mg TID PO Last administered on 07/03/16 10:15; Admin Dose 300 MG; Start 07/02/16 at 13:00 Hydralazine HCl (Apresoline) 10 mg Q8 PO Last administered on 07/03/16 15:15 ; Admin Dose 10 MG; Start 07/02/16 at 14:00 Insulin Glargine (Lantus) 33 unit HS SC Last administered on 07/02/16 20:29; Admin Dose 33 UNIT; Start 07/02/16 at 21:00 Isosorbide Dinitrate (Isordil) 20 mg TID PO Last administered on 07/03/16 10: 14; Admin Dose 20 MG; Start 07/02/16 at 13:00 Ranolazine (Ranexa) 1,000 mg Q12 PO Last administered on 12/20/16at 10:15; Admin Dose 1,000 MG; Start 07/02/16 at 21:00 Atorvastatin Calcium (Lipitor) 80 mg HS PO Last administered on 07/02/16at 20: 25; Admin Dose 80 MG; Start 07/02/16 at 21:00 Ondansetron HCl (Zofran Inj) 4 mg Q6H PRN IV NAUSEA AND/OR VOMITING Last administered on 07/03/16at 12:46; Admin Dose 4 MG; Start 07/02/16 at 11:30 Acetaminophen (Tylenol Tab) 650 mg Q6H PRN PO PAIN LEVEL 1-3 OR FEVER Last administered on 07/03/16at 08:37; Admin Dose 650 MG; Start 07/02/16 at 11:30 Acetaminophen (Tylenol Supp) 650 mg Q6H PRN [place] PAIN LEVEL 1-3 OR FEVER; Start 07/02/16 at 11:30 Acetaminophen/ Hydrocodone Bitart ([place] (5/325)) 1 tab Q6H PRN PO MODERATE PAIN LEVEL 4-6 Last administered on 07/03/16at 04:54; Admin Dose 1 TAB; Start 07/02/16 at 11:30 Docusate Sodium (Colace) 100 mg Q12H PRN PO CONSTIPATION; Start 07/02/16 at 11 :30 Famotidine (Pepcid) 20 mg Q12 PO Last administered on 07/03/16at 10:15; Admin Dose 20 MG; Start 07/02/16 at 21:00 Heparin Sodium (Porcine) (Heparin (5000 Units/0.5 ml)) 5,000 unit Q12 SC Last administered on 07/03/16at 10:16; Admin Dose 5,000 UNIT; Start 07/02/16 at 21: 00 Miscellaneous Information 1 ea NOTE XX ; Start 07/02/16 at 12:00 Glucose (Glutose) 15 gm Q15M PRN PO DECREASED GLUCOSE; Start 07/02/16 at 12:00 Glucose (Glutose) 22.5 gm Q15M PRN PO DECREASED GLUCOSE; Start 07/02/16 at 12: 00 Dextrose (D50w Syringe) 25 ml Q15M PRN IV DECREASED GLUCOSE; Start 07/02/16 at 12:00 Dextrose (D50w Syringe) 50 ml Q15M PRN IV DECREASED GLUCOSE; Start 07/02/16 at 12:00 Glucagon (Glucagen) 1 mg Q15M PRN IM DECREASED GLUCOSE; Start 07/02/16 at 12: 00 Glucose 15 gm 15 gm Q15M PRN BUCCAL DECREASED GLUCOSE; Start 07/02/16 at 12:00 Cefepime HCl (Maxipime 1gm/50 ml (Pmx)) 50 ml @ 100 mls/hr Q12 IVPB Last administered on 07/03/16at 16:05; Admin Dose 100 MLS/HR; Start 07/02/16 at 21: 00 Hydralazine HCl 10 mg 10 mg Q6H PRN IV SBP>160; Start 07/02/16 at 15:00 Sodium Chloride 1,000 ml @ 40 mls/hr Q24H IV Last administered on 07/02/16at 15:00; Admin Dose 40 MLS/HR; Start 07/02/16 at 15:00 Vancomycin HCl/ Sodium Chloride (Vancocin/NS) 250 ml @ 83.333 mls/ hr Q24H IVPB Last administered on 07/03/16at 10:24; Admin Dose 83.333 MLS/HR; Start at 10:00 Morphine Sulfate (morphine) 2 mg Q4H PRN IV PAIN Last administered on at 17:39; Admin Dose 2 MG; Start 07/02/16 at 21:00 Diagnostic Test (Pha) (Accucheck) 1 ea 02 XX ; Start 07/03/16 at 02:00 Promethazine HCl/ Codeine (Phenergan/ Codeine) 5 ml Q4H PRN PO COUGH; Start at 18:00 Baclofen (Lioresal) 10 mg Q8 PRN PO MUSCLE SPASM; Start 07/03/16 at 19:00 ROBB ALBERT MD Jul 03, 2016 19:57
[2016-07-03 20:00] VITALS: BP 123/60; PULSE 104; RESP 20
[2016-07-03] MEDS: ATORVASTATIN 80 MG TAB PO SCH (21:21)
[2016-07-03] MEDS: INSULIN GLARGINE [LANtus] 3 ML PEN SC SCH (21:26)
[2016-07-04] VITALS (24 sets, daily range): BP systolic 102–152; BP diastolic 62–96; PULSE 77–115; RESP 15–27
[2016-07-04] MEDS: HYDROCODONE/APAP (5/325) TAB PO PRN (00:33)
[2016-07-04] MEDS: PROMETHAZINE/CODEINE 5ML CUP PO PRN ×2 (00:35→19:57)
[2016-07-04] MEDS: LEVALBUTEROL (NEB) 0.63 MG/3 ML AMP HHN PRN ×2 (00:51→04:20)
[2016-07-04] MEDS: IPRATROPIUM (NEB) 0.5 MG/2.5 ML AMP HHN PRN ×2 (00:51→04:20)
[2016-07-04] MEDS: ACCUCHECK XX SCH (02:00)
[2016-07-04] MEDS: morphine 2 MG INJ IV PRN ×2 (04:02→19:52)
[2016-07-04] MEDS ORDERED: FUROSEMIDE 20 MG INJ IV ONE (04:30)
--- NOTE | 2016-07-04 05:14 | RADRPT ---
PROCEDURE: XR Chest. CLINICAL INDICATION: Shortness of breath TECHNIQUE: An AP view of the chest was obtained. COMPARISON: Chest x-ray dated 07/02/2016 FINDINGS: There is prominence of the interstitial markings. There is persistent consolidation of the right up per lobe. No pleural effusion or pneumothorax is seen. The cardiomediastinal silhouette is mildly enlarged . The osseous structures demonstrate senescent changes. IMPRESSION: 1. Right upper lobe pneumonia with mild interval increase in degree of right upper lobe consolidati on. 2. Mild prominence of the interstitial markings, may reflect mild underlying interstitial edema or chronic lung changes. 3. Mild cardiomegaly. RPTAT: HH .Annabella Ojeda MD, MD Date Time Electronically viewed and signed by .Annabella Ojeda MD, on 07/04/2016 05:14 .G/
[2016-07-04] MEDS: ACETAMINOPHEN 325 MG TAB PO PRN (05:45)
[2016-07-04] MEDS ORDERED: METHYLPREDNISOLONE 40 MG INJ IV ONE (06:00)
[2016-07-04 06:31] LABS: ALBUMIN 2.9 g/dl (3.3-4.9)
[2016-07-04 06:32] LABS: POTASSIUM 4.4 mmol/L (3.5-5.1)
[2016-07-04 06:34] LABS: BILIRUBIN,INDIRECT 0.2 mg/dl (0-1.1); BILIRUBIN,TOTAL 0.2 mg/dl (0.2-1.3); CREATININE 2.02 mg/dl (0.61-1.24); TOTAL PROTEIN 6.3 g/dl (6.1-8.1)
[2016-07-04 06:35] LABS: CALCIUM 7.7 mg/dl (8.4-10.2); MAGNESIUM 2.4 mg/dl (1.7-2.5)
[2016-07-04 06:57] LABS: BASOPHILS % 0.1 % (0.0-2.0); HEMATOCRIT 40.6 % (42.0-52.0); HEMOGLOBIN 13.5 g/dl (14.0-18.0); LYMPHOCYTES # 1.1 10^3/ul (0.8-2.9); LYMPHOCYTES % 10.9 % (15.0-51.0); MEAN CORPUSCULAR HEMOGLOBIN 26.5 pg (29.0-33.0); MEAN CORPUSCULAR HGB CONC 33.3 g/dl (32.0-37.0); MEAN CORPUSCULAR VOLUME 79.6 fl (82.0-101.0); MEAN PLATELET VOLUME 9.9 fl (7.4-10.4); MONOCYTES % 10.1 % (0.0-11.0); NEUTROPHIL # 7.9 10^3/ul (1.6-7.5); NEUTROPHILS % 78.9 % (39.0-77.0); PLATELET COUNT 157 10^3/UL (140-440); RED CELL DISTRIBUTION WIDTH 17.2 % (11.5-14.5)
[2016-07-04 07:14] LABS: CONDITION 1; LH ANALYZER COMMENTS 1
[2016-07-04] MEDS: INSULIN ASPART [NOVOLOG] 3 ML PEN SC SCH ×7 (07:35→20:59)
[2016-07-04] MEDS: CLOPIDOGREL 75 MG TAB PO SCH (09:02)
[2016-07-04] MEDS: GABAPENTIN 300 MG CAP PO SCH ×3 (09:02→20:49)
[2016-07-04] MEDS: FUROSEMIDE 40 MG TAB PO SCH (09:03)
[2016-07-04] MEDS: FAMOTIDINE 20 MG TAB PO SCH ×2 (09:03→20:49)
[2016-07-04] MEDS: HEPARIN 5,000 UNIT/0.5 ML SYG SC SCH ×2 (09:07→20:58)
[2016-07-04] MEDS: ISOSORBIDE DINITRATE 20 MG TAB PO SCH ×3 (09:17→20:49)
[2016-07-04] MEDS: RANOLAZINE (SR) 500 MG TAB PO SCH ×2 (09:17→20:48)
[2016-07-04] MEDS: ASPIRIN 81 MG TAB PO SCH (09:17)
[2016-07-04] MEDS: ALBUTEROL/IPRATROPIUM (NEB) 3 ML AMP HHN SCH ×4 (09:45→21:15)
[2016-07-04] MEDS: VANCOMYCIN 1.5 GM in SOD CHLORIDE 0.9% 250 ML IVPB SCH (10:19)
[2016-07-04 13:43] LABS: AADO2 Arterial 100.2 mmHg (7.0-24.0); Allen Test ACCEPTAB; Arterial Base Excess -2.1 mmol/L (-3.0-3); Arterial COHb 0.7 % (0.0-3.0); Arterial Fraction of Oxyhgb 96.9 % (93.0-99.0); Arterial HCO3 23.8 mmol/L (22.0-26.0); Arterial MetHb 0 % (0.0-1.5); Arterial Total Hemglobin 13.9 g/dl (12.0-18.0); MODE NASAL CANNULA
[2016-07-04] MEDS ORDERED: CEFEPIME 1GM/50 ML (PMX) 50 ML IVPB SCH (14:00)
[2016-07-04] MEDS: SOD CHLORIDE 0.9% 1,000 ML IV SCH (14:59)
--- NOTE | 2016-07-04 15:26 | PN ---
Date/Time of Note Date/Time of Note DATE: 07/04/16 TIME: 15:26 Assessment/Plan VTE Prophylaxis VTE Prophylaxis Intervention: heparin Lines/Catheters IV Catheter Type (from [facility]): Peripheral IV Urinary Cath still in place: No Assessment/Plan Chief Complaint/Hosp Course 1. Pneumonia, likely community-acquired. -> Improving . cont abx. Cultures negative. 2. Sepsis secondary to pneumonia: Improved.Treatment as above. 3. Acute kidney injury on chronic kidney disease. SHERYL likely secondary to sepsis -> Appreciate Nephrology consultation / Monitor renal function closely and avoid nephrotoxins as much as possible. 4. Hyperkalemia with SHERYL: resolved 5. Hyponatremia: Stable. 6. Essential hypertension: Stable. on isordil / hydralazine / coreg 7. Coronary artery disease, status post multiple percutaneous coronary interventions: On ASA/ Plavix/ Statin / BB / hydralazine/nitrates 8. Congestive heart failure with systolic dysfunction, known ejection fraction of 45%. Continue medical management on Lasix, Coreg, Imdur, and aspirin. 9. Hyperglycemia with Type 2 diabetes. A1C 9.8: non compliance Continue accuchecks,ISS,Premeals and Lantus. Diabetic education consult obtained and pending. 10. Dyslipidemia. Hold Lipitor due to liver fxn. Will start Fish oil. May need to change to low dose Zocor up on DC with LFT monitoring. 11.Transaminase elevation likley 2/2 concurrent illness vs statin toxicity. Obtain a repeat gallbladder US. Monitor closely. 12. Obesity. Weight reduction advised DVT prophylaxis: Heparin PUD prophylaxis: Pepcid PLAN:Continue abx. Discharge planning once patient with more stable clinically. Case discussed with . Problems: Subjective 24 Hr Interval Summary Free Text/Dictation Patient with overall improved resp.status. Exam/Review of Systems Vital Signs Vitals Vital Signs Date Time Temp Pulse Resp B/P Pulse Ox O2 Delivery O2 Flow Rate FiO2 07/04/16 15:00 85 18 121/84 94 Nasal Cannula 5.0 07/04/16 12:00 98.9 07/03/16 19:35 21 Intake and Output 07/03/16 07/03/16 07/04/16 15:00 23:00 07:00 Intake Total 1640 ml 990 ml Output Total 8 ml 795 ml Balance 1632 ml 195 ml Exam General: Obese male, not in any acute distress . HEENT: Normocephalic, Atraumatic, No laceration or hematoma; Eyes: PEERL, Conjunctiva clear, Anicteric sclera Neck: Supple without any lymphadenopathy, nontender, no JVD, no carotid bruits, trachea midline, no thyromegaly Cardiac: S1, S2 auscultated, regular rhythm and rate, no mumurs or gallop Pulmonary: Diminished breath sound bibasilar. With increased work of breathing requiring oxygen via nasal cannula. Normal respiratory effort. No adventitious breath sounds GI: Abdomen normal to inspection. Soft, non tender, non- distended, no masses, no rebound tenderness or guarding. Bowel sounds active on all four quadrants Genitourinary: Deferred Extremities: No cyanosis, clubbing, or edema. Pulses [2+] bilaterally. Full ROM on all four extremities. No focal weakness appreciated. Neurologic: Alert to person, place, time, and situation. Affect appropriate, intact sensation. Skin: Clean,dry, and intact. No ecchymosis, no rashes, or lesions Results Result Diagram: 07/04/16 0537 07/04/16 0537 Results 24 hrs Laboratory Tests Test 07/03/16 16:57 07/03/16 21:17 07/04/16 02:05 07/04/16 05:26 Bedside Glucose 225 H 259 H 181 128 Test 07/04/16 05:37 07/04/16 08:55 07/04/16 11:37 07/04/16 13:13 Alanine Aminotransferase (ALT/SGPT) 111 H Albumin 2.9 L Alkaline Phosphatase 265 H Anion Gap 14 Aspartate Amino Transf (AST/SGOT) 93 H Basophils # 0.0 Basophils % 0.1 Blood Morphology Comment Blood Urea Nitrogen 45 H Calcium Level 7.7 L Carbon Dioxide Level 24 Chloride Level 99 Creatinine 2.02 H Direct Bilirubin 0.00 Eosinophils # 0.0 Eosinophils % 0.0 Glucose Level 142 # Hematocrit 40.6 L Hemoglobin 13.5 L Indirect Bilirubin 0.2 Lymphocytes # 1.1 Lymphocytes % 10.9 L Magnesium Level 2.4 Mean Corpuscular Hemoglobin 26.5 L Mean Corpuscular Hemoglobin Concent 33.3 Mean Corpuscular Volume 79.6 L Mean Platelet Volume 9.9 Monocytes # 1.0 H Monocytes % 10.1 Neutrophils # 7.9 H Neutrophils % 78.9 H Nucleated Red Blood Cells # 0.0 Nucleated Red Blood Cells % 0.0 Platelet Count 157 Potassium Level 4.4 Red Blood Count 5.10 Red Cell Distribution Width 17.2 H Sodium Level 133 L Total Bilirubin 0.2 Total Protein 6.3 # White Blood Count 10.0 Bedside Glucose 120 158 Arterial Blood HCO3 23.8 Arterial Blood Base Excess -2.1 Arterial Blood Oxygen Saturation 97.6 Surya Test ACCEPTAB Arterial Blood Gas Puncture Site Right Radial Arterial Blood Carboxyhemoglobin 0.7 Arterial Blood Date Drawn 07/04/2016 1:25:44 PM Arterial Blood Methemoglobin 0 Arterial Blood pCO2 (Temp correct) 45.0 Arterial Blood pH (Temp corrected) 7.342 L Arterial Blood pO2 (Temp corrected) 104.3 H Blood Gas A-a O2 Differential 100.2 H Blood Gas Modality NASAL CANNULA Blood Gas Notified Time 07/04/2016 1:43:22 PM Blood Gas Notified Whom JLD Blood Gas Specimen Source Blood arterial Blood Gas Temperature 37.0 FiO2 36.0 Oxyhemoglobin Percent 96.9 Total Hemoglobin 13.9 Medications Medications Current Medications Aspirin (Aspirin) 81 mg DAILY PO Last administered on 07/04/16 09:17; Admin Dose 81 MG; Start 07/03/16 at 09:00 Carvedilol (Coreg) 6.25 mg BID PO Last administered on 07/04/16 09:02; Admin Dose 6.25 MG; Start 07/02/16 at 21:00 Clopidogrel Bisulfate (plaVIX) 75 mg DAILY PO Last administered on 07/04/16 09:02; Admin Dose 75 MG; Start 07/03/16 at 09:00 Furosemide (Lasix) 40 mg DAILY PO Last administered on 07/04/16 09:03; Admin Dose 40 MG; Start 07/03/16 at 09:00 Gabapentin (Neurontin) 300 mg TID PO Last administered on 07/04/16 13:09; Admin Dose 300 MG; Start 07/02/16 at 13:00 Hydralazine HCl (Apresoline) 10 mg Q8 PO Last administered on 07/04/16 14:59 ; Admin Dose 10 MG; Start 07/02/16 at 14:00 Insulin Glargine (Lantus) 33 unit HS SC Last administered on 07/03/16 21:26; Admin Dose 33 UNIT; Start 07/02/16 at 21:00 Isosorbide Dinitrate (Isordil) 20 mg TID PO Last administered on 07/04/16at 13: 45; Admin Dose 20 MG; Start 07/02/16 at 13:00 Ranolazine (Ranexa) 1,000 mg Q12 PO Last administered on 07/04/16at 09:17; Admin Dose 1,000 MG; Start 07/02/16 at 21:00 Atorvastatin Calcium (Lipitor) 80 mg HS PO Last administered on 07/03/16at 21: 21; Admin Dose 80 MG; Start 07/02/16 at 21:00 Ondansetron HCl (Zofran Inj) 4 mg Q6H PRN IV NAUSEA AND/OR VOMITING Last administered on 07/03/16at 12:46; Admin Dose 4 MG; Start 07/02/16 at 11:30 Acetaminophen (Tylenol Tab) 650 mg Q6H PRN PO PAIN LEVEL 1-3 OR FEVER Last administered on 07/04/16at 05:45; Admin Dose 650 MG; Start 07/02/16 at 11:30 Acetaminophen (Tylenol Supp) 650 mg Q6H PRN [place] PAIN LEVEL 1-3 OR FEVER; Start 07/02/16 at 11:30 Acetaminophen/ Hydrocodone Bitart ([place] (5/325)) 1 tab Q6H PRN PO MODERATE PAIN LEVEL 4-6 Last administered on 07/04/16at 00:33; Admin Dose 1 TAB; Start 07/02/16 at 11:30 Docusate Sodium (Colace) 100 mg Q12H PRN PO CONSTIPATION; Start 07/02/16 at 11 :30 Famotidine (Pepcid) 20 mg Q12 PO Last administered on 07/04/16at 09:03; Admin Dose 20 MG; Start 07/02/16 at 21:00 Heparin Sodium (Porcine) (Heparin (5000 Units/0.5 ml)) 5,000 unit Q12 SC Last administered on 07/04/16at 09:07; Admin Dose 5,000 UNIT; Start 07/02/16 at 21: 00 Miscellaneous Information 1 ea NOTE XX ; Start 07/02/16 at 12:00 Glucose (Glutose) 15 gm Q15M PRN PO DECREASED GLUCOSE; Start 07/02/16 at 12:00 Glucose (Glutose) 22.5 gm Q15M PRN PO DECREASED GLUCOSE; Start 07/02/16 at 12: 00 Dextrose (D50w Syringe) 25 ml Q15M PRN IV DECREASED GLUCOSE; Start 07/02/16 at 12:00 Dextrose (D50w Syringe) 50 ml Q15M PRN IV DECREASED GLUCOSE; Start 07/02/16 at 12:00 Glucagon (Glucagen) 1 mg Q15M PRN IM DECREASED GLUCOSE; Start 07/02/16 at 12: 00 Glucose (Glutose) 15 gm Q15M PRN BUCCAL DECREASED GLUCOSE; Start 07/02/16 at 12:00 Hydralazine HCl 10 mg 10 mg Q6H PRN IV SBP>160; Start 07/02/16 at 15:00 Sodium Chloride 1,000 ml @ 40 mls/hr Q24H IV Last administered on 07/04/16at 14:59; Admin Dose 40 MLS/HR; Start 07/02/16 at 15:00 Vancomycin HCl/ Sodium Chloride (Vancocin/NS) 250 ml @ 83.333 mls/ hr Q24H IVPB Last administered on 07/04/16at 10:19; Admin Dose 83.333 MLS/HR; Start at 10:00 Morphine Sulfate (morphine) 2 mg Q4H PRN IV PAIN Last administered on at 04:02; Admin Dose 2 MG; Start 07/02/16 at 21:00 Diagnostic Test (Pha) (Accucheck) 1 ea 02 XX Last administered on 07/04/16at 02 :00; Admin Dose 1 EA; Start 07/03/16 at 02:00 Promethazine HCl/ Codeine (Phenergan/ Codeine) 5 ml Q4H PRN PO COUGH Last administered on 07/04/16at 00:35; Admin Dose 5 ML; Start 07/03/16 at 18:00 Baclofen 10 mg 10 mg Q8 PRN PO MUSCLE SPASM; Start 07/03/16 at 19:00 Cefepime HCl (Maxipime 1gm/50 ml (Pmx)) 50 ml @ 100 mls/hr Q12H IVPB Last administered on 07/04/16at 13:45; Admin Dose 100 MLS/HR; Start 07/04/16 at 14: 00 Miscellaneous Information (*Rx Drug Level Order Reminder*) VANCO TROUGH @ 0, 900 ON ... ONCE ONCE XX ; Start 07/05/16 at 09:00; Stop 07/05/16 at 09:01 JOHN VALE NP Jul 04, 2016 15:26
--- NOTE | 2016-07-04 16:40 | CONS ---
Date/Time of Note Date/Time of Note DATE: 07/04/16 TIME: 16:39 Assessment/Plan Assessment/Plan Chief Complaint/Hosp Course IMPRESSION: 1. The patient has pneumonia. 2. jovani w ckd 3. Underlying chronic kidney disease. 4. Diabetes mellitus. 5. Hypertension. 6. Anemia. 7. Hyponatremia. 8. Obesity. 9. Dyslipidemia. plan f/u bmp Problems: Consultation Date/Type/Reason Admit Date/Time Jul 02, 2016 at 09:58 Type of Consultation: renal 24 HR Interval Summary Subjective hx not possible: other (sob better) Exam/Review of Systems Vital Signs Vitals Vital Signs Date Time Temp Pulse Resp B/P Pulse Ox O2 Delivery O2 Flow Rate FiO2 07/04/16 16:01 84 07/04/16 15:00 18 121/84 94 Nasal Cannula 5.0 07/04/16 12:00 98.9 07/03/16 19:35 21 Intake and Output 07/03/16 07/03/16 07/04/16 15:00 23:00 07:00 Intake Total 1640 ml 990 ml Output Total 8 ml 795 ml Balance 1632 ml 195 ml Exam Respiratory: diminished breath sounds Cardiovascular: regular rate and rhythm Gastrointestinal: bowel sounds, soft Extremities: edema (+) Results Result Diagram: 07/04/16 0537 07/04/16 0537 Results 24 hrs Laboratory Tests Test 07/03/16 16:57 07/03/16 21:17 07/04/16 02:05 07/04/16 05:26 Bedside Glucose 225 H 259 H 181 128 Test 07/04/16 05:37 07/04/16 08:55 07/04/16 11:37 07/04/16 13:13 Alanine Aminotransferase (ALT/SGPT) 111 H Albumin 2.9 L Alkaline Phosphatase 265 H Anion Gap 14 Aspartate Amino Transf (AST/SGOT) 93 H Basophils # 0.0 Basophils % 0.1 Blood Morphology Comment Blood Urea Nitrogen 45 H Calcium Level 7.7 L Carbon Dioxide Level 24 Chloride Level 99 Creatinine 2.02 H Direct Bilirubin 0.00 Eosinophils # 0.0 Eosinophils % 0.0 Glucose Level 142 # Hematocrit 40.6 L Hemoglobin 13.5 L Indirect Bilirubin 0.2 Lymphocytes # 1.1 Lymphocytes % 10.9 L Magnesium Level 2.4 Mean Corpuscular Hemoglobin 26.5 L Mean Corpuscular Hemoglobin Concent 33.3 Mean Corpuscular Volume 79.6 L Mean Platelet Volume 9.9 Monocytes # 1.0 H Monocytes % 10.1 Neutrophils # 7.9 H Neutrophils % 78.9 H Nucleated Red Blood Cells # 0.0 Nucleated Red Blood Cells % 0.0 Platelet Count 157 Potassium Level 4.4 Red Blood Count 5.10 Red Cell Distribution Width 17.2 H Sodium Level 133 L Total Bilirubin 0.2 Total Protein 6.3 # White Blood Count 10.0 Bedside Glucose 120 158 Arterial Blood HCO3 23.8 Arterial Blood Base Excess -2.1 Arterial Blood Oxygen Saturation 97.6 Surya Test ACCEPTAB Arterial Blood Gas Puncture Site Right Radial Arterial Blood Carboxyhemoglobin 0.7 Arterial Blood Date Drawn 07/04/2016 1:25:44 PM Arterial Blood Methemoglobin 0 Arterial Blood pCO2 (Temp correct) 45.0 Arterial Blood pH (Temp corrected) 7.342 L Arterial Blood pO2 (Temp corrected) 104.3 H Blood Gas A-a O2 Differential 100.2 H Blood Gas Modality NASAL CANNULA Blood Gas Notified Time 07/04/2016 1:43:22 PM Blood Gas Notified Whom JLD Blood Gas Specimen Source Blood arterial Blood Gas Temperature 37.0 FiO2 36.0 Oxyhemoglobin Percent 96.9 Total Hemoglobin 13.9 Medications Medications Current Medications Aspirin (Aspirin) 81 mg DAILY PO Last administered on 07/04/16at 09:17; Admin Dose 81 MG; Start 07/03/16 at 09:00 Carvedilol (Coreg) 6.25 mg BID PO Last administered on 07/04/16at 09:02; Admin Dose 6.25 MG; Start 07/02/16 at 21:00 Clopidogrel Bisulfate (plaVIX) 75 mg DAILY PO Last administered on 07/04/16at 09:02; Admin Dose 75 MG; Start 07/03/16 at 09:00 Furosemide (Lasix) 40 mg DAILY PO Last administered on 07/04/16 09:03; Admin Dose 40 MG; Start 07/03/16 at 09:00 Gabapentin (Neurontin) 300 mg TID PO Last administered on 07/04/16 13:09; Admin Dose 300 MG; Start 07/02/16 at 13:00 Hydralazine HCl (Apresoline) 10 mg Q8 PO Last administered on 07/04/16at 14:59 ; Admin Dose 10 MG; Start 07/02/16 at 14:00 Insulin Glargine (Lantus) 33 unit HS SC Last administered on 07/03/16at 21:26; Admin Dose 33 UNIT; Start 07/02/16 at 21:00 Isosorbide Dinitrate (Isordil) 20 mg TID PO Last administered on 07/04/16at 13: 45; Admin Dose 20 MG; Start 07/02/16 at 13:00 Ranolazine (Ranexa) 1,000 mg Q12 PO Last administered on 07/04/16at 09:17; Admin Dose 1,000 MG; Start 07/02/16 at 21:00 Atorvastatin Calcium (Lipitor) 80 mg HS PO Last administered on 07/03/16at 21: 21; Admin Dose 80 MG; Start 07/02/16 at 21:00 Ondansetron HCl (Zofran Inj) 4 mg Q6H PRN IV NAUSEA AND/OR VOMITING Last administered on 07/03/16at 12:46; Admin Dose 4 MG; Start 07/02/16 at 11:30 Acetaminophen (Tylenol Tab) 650 mg Q6H PRN PO PAIN LEVEL 1-3 OR FEVER Last administered on 07/04/16at 05:45; Admin Dose 650 MG; Start 07/02/16 at 11:30 Acetaminophen (Tylenol Supp) 650 mg Q6H PRN [place] PAIN LEVEL 1-3 OR FEVER; Start 07/02/16 at 11:30 Acetaminophen/ Hydrocodone Bitart ([place] (5/325)) 1 tab Q6H PRN PO MODERATE PAIN LEVEL 4-6 Last administered on 07/04/16at 00:33; Admin Dose 1 TAB; Start 07/02/16 at 11:30 Docusate Sodium (Colace) 100 mg Q12H PRN PO CONSTIPATION; Start 07/02/16 at 11 :30 Famotidine (Pepcid) 20 mg Q12 PO Last administered on 07/04/16at 09:03; Admin Dose 20 MG; Start 07/02/16 at 21:00 Heparin Sodium (Porcine) (Heparin (5000 Units/0.5 ml)) 5,000 unit Q12 SC Last administered on 07/04/16at 09:07; Admin Dose 5,000 UNIT; Start 07/02/16 at 21: 00 Miscellaneous Information 1 ea NOTE XX ; Start 07/02/16 at 12:00 Glucose (Glutose) 15 gm Q15M PRN PO DECREASED GLUCOSE; Start 07/02/16 at 12:00 Glucose (Glutose) 22.5 gm Q15M PRN PO DECREASED GLUCOSE; Start 07/02/16 at 12: 00 Dextrose (D50w Syringe) 25 ml Q15M PRN IV DECREASED GLUCOSE; Start 07/02/16 at 12:00 Dextrose (D50w Syringe) 50 ml Q15M PRN IV DECREASED GLUCOSE; Start 07/02/16 at 12:00 Glucagon (Glucagen) 1 mg Q15M PRN IM DECREASED GLUCOSE; Start 07/02/16 at 12: 00 Glucose (Glutose) 15 gm Q15M PRN BUCCAL DECREASED GLUCOSE; Start 07/02/16 at 12:00 Hydralazine HCl 10 mg 10 mg Q6H PRN IV SBP>160; Start 07/02/16 at 15:00 Sodium Chloride (NS) 1,000 ml @ 40 mls/hr Q24H IV Last administered on at 14:59; Admin Dose 40 MLS/HR; Start 07/02/16 at 15:00 Morphine Sulfate (morphine) 2 mg Q4H PRN IV PAIN Last administered on at 04:02; Admin Dose 2 MG; Start 07/02/16 at 21:00 Diagnostic Test (Pha) (Accucheck) 1 ea 02 XX Last administered on 07/04/16at 02 :00; Admin Dose 1 EA; Start 07/03/16 at 02:00 Promethazine HCl/ Codeine (Phenergan/ Codeine) 5 ml Q4H PRN PO COUGH Last administered on 07/04/16at 00:35; Admin Dose 5 ML; Start 07/03/16 at 18:00 Baclofen 10 mg 10 mg Q8 PRN PO MUSCLE SPASM; Start 07/03/16 at 19:00 Azithromycin 250 ml @ 250 mls/hr Q24H IVPB ; Start 07/04/16 at 17:00 Ceftriaxone Sodium (Rocephin) 50 ml @ 100 mls/hr Q24H IVPB ; Start 07/04/16 at 16:00 ROBB ALBERT MD Jul 04, 2016 16:40
[2016-07-04] MEDS: CEFTRIAXONE 1 GM/50 ML (PMX) 50 ML IVPB SCH (17:02)
[2016-07-04] MEDS: AZITHROMYCIN 500MG/NS (PMX) 250 ML IVPB SCH (17:39)
--- NOTE | 2016-07-04 20:05 | RADRPT ---
PROCEDURE: US Abdomen (Right upper quadrant) CLINICAL INDICATION: Elevated LFTs. TECHNIQUE: Multiple real-time longitudinal and transverse images were acquired of the patient's ri t upper quadrant utilizing a curved array transducer. COMPARISON: Ultrasound, 06/09/2016. FINDINGS: Liver demonstrates mild coarsening of the liver echotexture. No focal liver mass. Portal vein demonstrates hepatopetal flow. Surgical absence of the gallbladder without evidence of biliary dilatation. Pancreas is partially visualized and grossly unremarkable. Right kidney demonstrates no hydronephrosis or nephrolithiasis. No ascites. Proximal aorta and IVC are unremarkable. MEASUREMENTS: Liver: 19.0 cm Common Duct: 0.4 cm Right Kidney: 13.3 cm IMPRESSION: Mild hepatomegaly with mild nonspecific coarsening of the liver echotexture. No focal liver lesion is demonstrated. Biliary system is nondilated. RPTAT: EE .Jaylan Thorne MD, Date Time Electronically viewed and signed by .Jaylan Thorne MD, on 07/04/2016 20:08 .C/
[2016-07-04] MEDS: INSULIN GLARGINE [LANtus] 3 ML PEN SC SCH (21:00)
[2016-07-04] MEDS: FISH OIL 1,000 MG CAP PO SCH (21:10)
[2016-07-04] MEDS: morphine 4 MG/ML VIAL IV PRN (23:44)
[2016-07-05] VITALS (11 sets, daily range): BP systolic 111–149; BP diastolic 58–81; PULSE 85–96; RESP 15–20
[2016-07-05] MEDS: ACCUCHECK XX SCH (02:00)
[2016-07-05] MEDS: morphine 4 MG/ML VIAL IV PRN ×2 (04:18→11:07)
[2016-07-05 07:38] LABS: BASOPHILS % 0.2 % (0.0-2.0); HEMATOCRIT 41.2 % (42.0-52.0); HEMOGLOBIN 13.6 g/dl (14.0-18.0); LYMPHOCYTES # 0.8 10^3/ul (0.8-2.9); LYMPHOCYTES % 8.8 % (15.0-51.0); MEAN CORPUSCULAR HEMOGLOBIN 26.3 pg (29.0-33.0); MEAN CORPUSCULAR HGB CONC 33.1 g/dl (32.0-37.0); MEAN CORPUSCULAR VOLUME 79.6 fl (82.0-101.0); MEAN PLATELET VOLUME 9.9 fl (7.4-10.4); MONOCYTES % 10.8 % (0.0-11.0); NEUTROPHIL # 7.1 10^3/ul (1.6-7.5); NEUTROPHILS % 80.2 % (39.0-77.0); PLATELET COUNT 183 10^3/UL (140-440); RED BLOOD COUNT 5.17 10^6/ul (4.70-6.10); RED CELL DISTRIBUTION WIDTH 16.8 % (11.5-14.5); UNCORRECTED WBC 8.9 10^3/ul (4.8-10.8); WHITE BLOOD COUNT 8.9 10^3/ul (4.8-10.8)
[2016-07-05 07:46] LABS: POTASSIUM 4.3 mmol/L (3.5-5.1)
[2016-07-05 07:48] LABS: CREATININE 2.22 mg/dl (0.61-1.24)
[2016-07-05 07:49] LABS: CALCIUM 8.4 mg/dl (8.4-10.2)
[2016-07-05 07:55] LABS: CONDITION 1; LH ANALYZER COMMENTS 1
[2016-07-05] MEDS: CLOPIDOGREL 75 MG TAB PO SCH (08:14)
[2016-07-05] MEDS: FUROSEMIDE 40 MG TAB PO SCH (08:15)
[2016-07-05] MEDS: ASPIRIN 81 MG TAB PO SCH (08:15)
[2016-07-05] MEDS: GABAPENTIN 300 MG CAP PO SCH (08:15)
[2016-07-05] MEDS: FAMOTIDINE 20 MG TAB PO SCH ×2 (08:15→21:52)
[2016-07-05] MEDS: FISH OIL 1,000 MG CAP PO SCH ×2 (08:15→21:52)
[2016-07-05] MEDS: ISOSORBIDE DINITRATE 20 MG TAB PO SCH ×3 (08:15→21:53)
[2016-07-05] MEDS: RANOLAZINE (SR) 500 MG TAB PO SCH ×2 (08:16→21:52)
[2016-07-05] MEDS: HEPARIN 5,000 UNIT/0.5 ML SYG SC SCH ×2 (08:16→21:59)
[2016-07-05] MEDS: INSULIN ASPART [NOVOLOG] 3 ML PEN SC SCH ×7 (08:17→22:00)
[2016-07-05] MEDS: ALBUTEROL/IPRATROPIUM (NEB) 3 ML AMP HHN SCH ×4 (10:08→22:05)
--- NOTE | 2016-07-05 10:44 | PN ---
Date/Time of Note Date/Time of Note DATE: 07/05/16 TIME: 10:26 Assessment/Plan VTE Prophylaxis VTE Prophylaxis Intervention: heparin Lines/Catheters IV Catheter Type (from [facility]): Peripheral IV Urinary Cath still in place: No Assessment/Plan Chief Complaint/Hosp Course 1. Pneumonia, likely community-acquired vs other. Clinically improved. ->Continue abx.Sputum CS with staph aureus. Add vancomycin back to current regimen.Continue Zithromax to cover atypical PNA.Continue Rocephin. 2. Sepsis secondary to pneumonia: Resolving. Will monitor. 3. Acute kidney injury on chronic kidney disease. SHERYL likely secondary to sepsis vs diuretic induced.Creatinine trended up. -> Appreciate Nephrology consultation . Stop diuretics as patient is now euvolemic. Monitor renal function closely and avoid nephrotoxins as much as possible. 4. Hyperkalemia with SHERYL: resolved 5. Hyponatremia. Resolved. 6. Essential hypertension: Stable. on isordil / hydralazine / coreg 7. Coronary artery disease, status post multiple percutaneous coronary interventions: On ASA/ Plavix/ Statin / BB / hydralazine/nitrates 8. Congestive heart failure with systolic dysfunction, known ejection fraction of 45%. Now stable. Continue medical management on Coreg, Imdur, and aspirin. Spot diuretics as needed . 9. Hyperglycemia with Type 2 diabetes. A1C 9.8: non compliance Continue accuchecks,ISS,Premeals. Increase Lantus to 40 units. Diabetic education consult obtained and pending. 10. Dyslipidemia. Hold Lipitor due to liver fxn. Continue Fish oil. May need to change to low dose Zocor up on DC with LFT monitoring. 11. Hepatomegaly with Transaminase elevation-likely concurrent illness. Monitor closely. Stop gabapentin. Avoid hepatotoxins as much as possible. 12. Obesity. Weight reduction advised DVT prophylaxis: Heparin PUD prophylaxis: Pepcid PLAN:Stop Phenergan as patient experiencing hand shakes tremors.Continue abx. Monitor LFT. Discharge planning once patient with more stable clinically. Case discussed with . Problems: Subjective 24 Hr Interval Summary Free Text/Dictation Patient with overall clinical improvement in pneumonia.However continues to have multiple complaints with feeling weak, having tremors on hands. Patient is anxious and says that all his medications he takes makes him sicker. Exam/Review of Systems Vital Signs Vitals Vital Signs Date Time Temp Pulse Resp B/P Pulse Ox O2 Delivery O2 Flow Rate FiO2 07/05/16 10:08 92 18 94 Nasal Cannula 5.0 07/05/16 07:44 97.8 139/75 07/04/16 21:34 40 Intake and Output 07/04/16 07/04/16 07/05/16 15:00 23:00 07:00 Intake Total 390 ml 360 ml 880 ml Output Total 280 ml 690 ml 400 ml Balance 110 ml -330 ml 480 ml Exam General: Anxious looking, Obese male, not in any acute distress . HEENT: Normocephalic, Atraumatic, No laceration or hematoma; Eyes: PEERL, Conjunctiva clear, Anicteric sclera Neck: Supple without any lymphadenopathy, nontender, no JVD, no carotid bruits, trachea midline, no thyromegaly Cardiac: S1, S2 auscultated, regular rhythm and rate, no mumurs or gallop Pulmonary: Diminished breath sound bibasilar. With increased work of breathing requiring oxygen via nasal cannula. Normal respiratory effort. No adventitious breath sounds GI: Abdomen normal to inspection. Soft, non tender, non- distended, no masses, no rebound tenderness or guarding. Bowel sounds active on all four quadrants Genitourinary: Deferred Extremities: No cyanosis, clubbing, or edema. Pulses [2+] bilaterally. Full ROM on all four extremities. No focal weakness appreciated. Neurologic: Anxious.Alert to person, place, time, and situation. Affect :ANXIOUS , intact sensation. Skin: Clean,dry, and intact. No ecchymosis, no rashes, or lesions Results Result Diagram: 07/05/16 0630 07/05/16 0630 Results 24 hrs Laboratory Tests Test 07/04/16 11:37 07/04/16 13:13 07/04/16 17:14 07/04/16 20:46 Bedside Glucose 158 288 H 267 H Arterial Blood HCO3 23.8 Arterial Blood Base Excess -2.1 Arterial Blood Oxygen Saturation 97.6 Surya Test ACCEPTAB Arterial Blood Gas Puncture Site Right Radial Arterial Blood Carboxyhemoglobin 0.7 Arterial Blood Date Drawn 07/04/2016 1:25:44 PM Arterial Blood Methemoglobin 0 Arterial Blood pCO2 (Temp correct) 45.0 Arterial Blood pH (Temp corrected) 7.342 L Arterial Blood pO2 (Temp corrected) 104.3 H Blood Gas A-a O2 Differential 100.2 H Blood Gas Modality NASAL CANNULA Blood Gas Notified Time 07/04/2016 1:43:22 PM Blood Gas Notified Whom JLD Blood Gas Specimen Source Blood arterial Blood Gas Temperature 37.0 FiO2 36.0 Oxyhemoglobin Percent 96.9 Total Hemoglobin 13.9 Test 07/05/16 06:30 07/05/16 07:54 Anion Gap 16 Basophils # 0.0 Basophils % 0.2 Blood Morphology Comment Blood Urea Nitrogen 54 H Calcium Level 8.4 Carbon Dioxide Level 23 Chloride Level 100 Creatinine 2.22 H Eosinophils # 0.0 Eosinophils % 0.0 Glucose Level 217 Hematocrit 41.2 L Hemoglobin 13.6 L Lymphocytes # 0.8 Lymphocytes % 8.8 L Mean Corpuscular Hemoglobin 26.3 L Mean Corpuscular Hemoglobin Concent 33.1 Mean Corpuscular Volume 79.6 L Mean Platelet Volume 9.9 Monocytes # 1.0 H Monocytes % 10.8 Neutrophils # 7.1 Neutrophils % 80.2 H Nucleated Red Blood Cells # 0.0 Nucleated Red Blood Cells % 0.0 Platelet Count 183 Potassium Level 4.3 Red Blood Count 5.17 Red Cell Distribution Width 16.8 H Sodium Level 135 White Blood Count 8.9 Bedside Glucose 193 Medications Medications Current Medications Aspirin (Aspirin) 81 mg DAILY PO Last administered on 07/05/16 08:15; Admin Dose 81 MG; Start 07/03/16 at 09:00 Carvedilol (Coreg) 6.25 mg BID PO Last administered on 07/05/16 08:14; Admin Dose 6.25 MG; Start 07/02/16 at 21:00 Clopidogrel Bisulfate (plaVIX) 75 mg DAILY PO Last administered on 07/05/16 08:14; Admin Dose 75 MG; Start 07/03/16 at 09:00 Hydralazine HCl (Apresoline) 10 mg Q8 PO Last administered on 07/04/16 20:54 ; Admin Dose 10 MG; Start 07/02/16 at 14:00 Insulin Glargine (Lantus) 33 unit HS SC Last administered on 07/04/16 21:00; Admin Dose 33 UNIT; Start 07/02/16 at 21:00 Isosorbide Dinitrate (Isordil) 20 mg TID PO Last administered on 12/22/16at 08: 15; Admin Dose 20 MG; Start 07/02/16 at 13:00 Ranolazine (Ranexa) 1,000 mg Q12 PO Last administered on 07/05/16at 08:16; Admin Dose 1,000 MG; Start 07/02/16 at 21:00 Atorvastatin Calcium (Lipitor) 80 mg HS PO Last administered on 07/03/16at 21: 21; Admin Dose 80 MG; Start 07/02/16 at 21:00; Status Future Hold Ondansetron HCl (Zofran Inj) 4 mg Q6H PRN IV NAUSEA AND/OR VOMITING Last administered on 07/03/16at 12:46; Admin Dose 4 MG; Start 07/02/16 at 11:30 Acetaminophen (Tylenol Tab) 650 mg Q6H PRN PO PAIN LEVEL 1-3 OR FEVER Last administered on 07/04/16at 05:45; Admin Dose 650 MG; Start 07/02/16 at 11:30 Acetaminophen (Tylenol Supp) 650 mg Q6H PRN [place] PAIN LEVEL 1-3 OR FEVER; Start 07/02/16 at 11:30 Acetaminophen/ Hydrocodone Bitart ([place] (5/325)) 1 tab Q6H PRN PO MODERATE PAIN LEVEL 4-6 Last administered on 07/04/16at 00:33; Admin Dose 1 TAB; Start 07/02/16 at 11:30 Docusate Sodium (Colace) 100 mg Q12H PRN PO CONSTIPATION; Start 07/02/16 at 11 :30 Famotidine (Pepcid) 20 mg Q12 PO Last administered on 07/05/16at 08:15; Admin Dose 20 MG; Start 07/02/16 at 21:00 Heparin Sodium (Porcine) (Heparin (5000 Units/0.5 ml)) 5,000 unit Q12 SC Last administered on 07/05/16at 08:16; Admin Dose 5,000 UNIT; Start 07/02/16 at 21: 00 Miscellaneous Information 1 ea NOTE XX ; Start 07/02/16 at 12:00 Glucose (Glutose) 15 gm Q15M PRN PO DECREASED GLUCOSE; Start 07/02/16 at 12:00 Glucose (Glutose) 22.5 gm Q15M PRN PO DECREASED GLUCOSE; Start 07/02/16 at 12: 00 Dextrose (D50w Syringe) 25 ml Q15M PRN IV DECREASED GLUCOSE; Start 07/02/16 at 12:00 Dextrose (D50w Syringe) 50 ml Q15M PRN IV DECREASED GLUCOSE; Start 07/02/16 at 12:00 Glucagon (Glucagen) 1 mg Q15M PRN IM DECREASED GLUCOSE; Start 07/02/16 at 12: 00 Glucose (Glutose) 15 gm Q15M PRN BUCCAL DECREASED GLUCOSE; Start 07/02/16 at 12:00 Hydralazine HCl 10 mg 10 mg Q6H PRN IV SBP>160; Start 07/02/16 at 15:00 Sodium Chloride (NS) 1,000 ml @ 40 mls/hr Q24H IV Last administered on at 14:59; Admin Dose 40 MLS/HR; Start 07/02/16 at 15:00 Diagnostic Test (Pha) (Accucheck) 1 ea 02 XX Last administered on 07/04/16at 02 :00; Admin Dose 1 EA; Start 07/03/16 at 02:00 Promethazine HCl/ Codeine (Phenergan/ Codeine) 5 ml Q4H PRN PO COUGH Last administered on 07/04/16at 19:57; Admin Dose 5 ML; Start 07/03/16 at 18:00 Baclofen 10 mg 10 mg Q8 PRN PO MUSCLE SPASM; Start 07/03/16 at 19:00 Azithromycin 250 ml @ 250 mls/hr Q24H IVPB Last administered on 07/04/16at 17: 39; Admin Dose 250 MLS/HR; Start 07/04/16 at 17:00 Ceftriaxone Sodium (Rocephin) 50 ml @ 100 mls/hr Q24H IVPB Last administered on 07/04/16at 17:02; Admin Dose 100 MLS/HR; Start 07/04/16 at 16:00 Fish Oil (Fish Oil) 1,000 mg BID PO Last administered on 07/05/16at 08:15; Admin Dose 1,000 MG; Start 07/04/16 at 21:00 Morphine Sulfate (morphine) 4 mg Q4H PRN IV PAIN LEVEL 7-10 Last administered on 07/05/16at 04:18; Admin Dose 4 MG; Start 07/04/16 at 21:00 JOHN VALE NP Jul 05, 2016 10:42
[2016-07-05] MEDS ORDERED: ZOLPIDEM 5 MG TAB PO PRN (14:00)
[2016-07-05] MEDS ORDERED: LORAZEPAM 2 MG INJ IV PRN ×2 (14:00)
[2016-07-05 14:30] LABS: AADO2 Arterial 161.9 mmHg (7.0-24.0); Allen Test ACCEPTAB; Arterial Base Excess -0.8 mmol/L (-3.0-3); Arterial COHb 0.2 % (0.0-3.0); Arterial Fraction of Oxyhgb 94.4 % (93.0-99.0); Arterial HCO3 23.5 mmol/L (22.0-26.0); Arterial MetHb 0.2 % (0.0-1.5); Arterial Total Hemglobin 14.5 g/dl (12.0-18.0); MODE NASAL CANNULA
[2016-07-05] MEDS ORDERED: LORAZEPAM 2 MG INJ IM PRN (15:00)
[2016-07-05] MEDS ORDERED: VANCOMYCIN IV PER PHARMACY XX SCH (15:00)
[2016-07-05] MEDS: SOD CHLORIDE 0.9% 1,000 ML IV SCH ×2 (15:00→22:00)
[2016-07-05] MEDS: CEFTRIAXONE 1 GM/50 ML (PMX) 50 ML IVPB SCH (15:19)
--- NOTE | 2016-07-05 15:55 | CONS ---
Date/Time of Note Date/Time of Note DATE: 07/05/16 TIME: 15:54 Assessment/Plan Assessment/Plan Chief Complaint/Hosp Course IMPRESSION: 1. The patient has pneumonia. 2. jovani w ckd 3. Underlying chronic kidney disease. 4. Diabetes mellitus. 5. Hypertension. 6. Anemia. 7. Hyponatremia. 8. Obesity. 9. Dyslipidemia. plan f/u bmp Problems: Consultation Date/Type/Reason Admit Date/Time Jul 02, 2016 at 09:58 Type of Consultation: renal 24 HR Interval Summary Constitutional: other (sob+) Exam/Review of Systems Vital Signs Vitals Vital Signs Date Time Temp Pulse Resp B/P Pulse Ox O2 Delivery O2 Flow Rate FiO2 07/05/16 15:35 99.3 90 20 132/76 94 07/05/16 13:22 Nasal Cannula 5.0 07/04/16 21:34 40 Intake and Output 07/04/16 07/04/16 07/05/16 15:00 23:00 07:00 Intake Total 390 ml 360 ml 880 ml Output Total 280 ml 690 ml 400 ml Balance 110 ml -330 ml 480 ml Exam Respiratory: diminished breath sounds Cardiovascular: regular rate and rhythm Gastrointestinal: soft Extremities: normal pulses Results Result Diagram: 07/05/16 0630 07/05/16 0630 Results 24 hrs Laboratory Tests Test 07/04/16 17:14 07/04/16 20:46 07/05/16 06:30 07/05/16 07:54 Bedside Glucose 288 H 267 H 193 Anion Gap 16 Basophils # 0.0 Basophils % 0.2 Blood Morphology Comment Blood Urea Nitrogen 54 H Calcium Level 8.4 Carbon Dioxide Level 23 Chloride Level 100 Creatinine 2.22 H Eosinophils # 0.0 Eosinophils % 0.0 Glucose Level 217 Hematocrit 41.2 L Hemoglobin 13.6 L Lymphocytes # 0.8 Lymphocytes % 8.8 L Mean Corpuscular Hemoglobin 26.3 L Mean Corpuscular Hemoglobin Concent 33.1 Mean Corpuscular Volume 79.6 L Mean Platelet Volume 9.9 Monocytes # 1.0 H Monocytes % 10.8 Neutrophils # 7.1 Neutrophils % 80.2 H Nucleated Red Blood Cells # 0.0 Nucleated Red Blood Cells % 0.0 Platelet Count 183 Potassium Level 4.3 Red Blood Count 5.17 Red Cell Distribution Width 16.8 H Sodium Level 135 White Blood Count 8.9 Test 07/05/16 11:20 07/05/16 14:06 Bedside Glucose 174 Arterial Blood HCO3 23.5 Arterial Blood Base Excess -0.8 Arterial Blood Oxygen Saturation 94.8 L Surya Test ACCEPTAB Arterial Blood Gas Puncture Site Left Radial Arterial Blood Carboxyhemoglobin 0.2 Arterial Blood Date Drawn 07/05/2016 2:20:28 PM Arterial Blood Methemoglobin 0.2 Arterial Blood pCO2 (Temp correct) 37.5 Arterial Blood pH (Temp corrected) 7.414 Arterial Blood pO2 (Temp corrected) 73.0 L Blood Gas A-a O2 Differential 161.9 H Blood Gas Modality NASAL CANNULA Blood Gas Notified Time 07/05/2016 2:30:07 PM Blood Gas Notified Whom JLD Blood Gas Specimen Source Blood arterial Blood Gas Temperature 37.0 FiO2 39.0 Oxyhemoglobin Percent 94.4 Total Hemoglobin 14.5 Medications Medications Current Medications Aspirin (Aspirin) 81 mg DAILY PO Last administered on 07/05/16 08:15; Admin Dose 81 MG; Start 07/03/16 at 09:00 Carvedilol (Coreg) 6.25 mg BID PO Last administered on 07/05/16at 08:14; Admin Dose 6.25 MG; Start 07/02/16 at 21:00 Clopidogrel Bisulfate (plaVIX) 75 mg DAILY PO Last administered on 07/05/16at 08:14; Admin Dose 75 MG; Start 07/03/16 at 09:00 Hydralazine HCl (Apresoline) 10 mg Q8 PO Last administered on 07/05/16at 13:14 ; Admin Dose 10 MG; Start 07/02/16 at 14:00 Isosorbide Dinitrate (Isordil) 20 mg TID PO Last administered on 07/05/16at 13: 14; Admin Dose 20 MG; Start 07/02/16 at 13:00 Ranolazine (Ranexa) 1,000 mg Q12 PO Last administered on 07/05/16at 08:16; Admin Dose 1,000 MG; Start 07/02/16 at 21:00 Atorvastatin Calcium (Lipitor) 80 mg HS PO Last administered on 07/03/16at 21: 21; Admin Dose 80 MG; Start 07/02/16 at 21:00; Status Future Hold Ondansetron HCl (Zofran Inj) 4 mg Q6H PRN IV NAUSEA AND/OR VOMITING Last administered on 07/03/16at 12:46; Admin Dose 4 MG; Start 07/02/16 at 11:30 Acetaminophen (Tylenol Tab) 650 mg Q6H PRN PO PAIN LEVEL 1-3 OR FEVER Last administered on 07/04/16at 05:45; Admin Dose 650 MG; Start 07/02/16 at 11:30 Acetaminophen (Tylenol Supp) 650 mg Q6H PRN [place] PAIN LEVEL 1-3 OR FEVER; Start 07/02/16 at 11:30 Acetaminophen/ Hydrocodone Bitart ([place] (5/325)) 1 tab Q6H PRN PO MODERATE PAIN LEVEL 4-6 Last administered on 07/04/16at 00:33; Admin Dose 1 TAB; Start 07/02/16 at 11:30 Docusate Sodium (Colace) 100 mg Q12H PRN PO CONSTIPATION; Start 07/02/16 at 11 :30 Famotidine (Pepcid) 20 mg Q12 PO Last administered on 07/05/16at 08:15; Admin Dose 20 MG; Start 07/02/16 at 21:00 Heparin Sodium (Porcine) (Heparin (5000 Units/0.5 ml)) 5,000 unit Q12 SC Last administered on 07/05/16at 08:16; Admin Dose 5,000 UNIT; Start 07/02/16 at 21: 00 Miscellaneous Information 1 ea NOTE XX ; Start 07/02/16 at 12:00 Glucose (Glutose) 15 gm Q15M PRN PO DECREASED GLUCOSE; Start 07/02/16 at 12:00 Glucose (Glutose) 22.5 gm Q15M PRN PO DECREASED GLUCOSE; Start 07/02/16 at 12: 00 Dextrose (D50w Syringe) 25 ml Q15M PRN IV DECREASED GLUCOSE; Start 07/02/16 at 12:00 Dextrose (D50w Syringe) 50 ml Q15M PRN IV DECREASED GLUCOSE; Start 07/02/16 at 12:00 Glucagon (Glucagen) 1 mg Q15M PRN IM DECREASED GLUCOSE; Start 07/02/16 at 12: 00 Glucose (Glutose) 15 gm Q15M PRN BUCCAL DECREASED GLUCOSE; Start 07/02/16 at 12:00 Hydralazine HCl 10 mg 10 mg Q6H PRN IV SBP>160; Start 07/02/16 at 15:00 Sodium Chloride (NS) 1,000 ml @ 40 mls/hr Q24H IV Last administered on at 14:59; Admin Dose 40 MLS/HR; Start 07/02/16 at 15:00 Diagnostic Test (Pha) 1 ea 1 ea 02 XX Last administered on 07/04/16at 02:00; Admin Dose 1 EA; Start 07/03/16 at 02:00 Azithromycin 250 ml @ 250 mls/hr Q24H IVPB Last administered on 07/04/16at 17: 39; Admin Dose 250 MLS/HR; Start 07/04/16 at 17:00 Ceftriaxone Sodium (Rocephin) 50 ml @ 100 mls/hr Q24H IVPB Last administered on 07/05/16at 15:19; Admin Dose 100 MLS/HR; Start 07/04/16 at 16:00 Fish Oil (Fish Oil) 1,000 mg BID PO Last administered on 07/05/16at 08:15; Admin Dose 1,000 MG; Start 07/04/16 at 21:00 Insulin Glargine (Lantus) 40 unit HS SC ; Start 07/05/16 at 21:00 Lorazepam (Ativan) 1 mg Q6H PRN IV anxiety; Start 07/05/16 at 14:00 Zolpidem Tartrate (Ambien) 5 mg HS PRN PO INSOMNIA; Start 07/05/16 at 14:00 Methylprednisolone Sodium Succinate (Solu-Medrol) 40 mg BID IV ; Start at 21:00 Lorazepam 1 mg 1 mg Q6H PRN IM anxiety; Start 07/05/16 at 15:00 Vancomycin HCl/ Sodium Chloride (Vancocin/NS) 250 ml @ 83.333 mls/ hr Q24H IVPB ; Start 07/05/16 at 17:00 ROBB ALBERT MD Jul 05, 2016 15:55
[2016-07-05] MEDS ORDERED: VITAMIN A & D 5 GM OINT PACKET TOP ONE (15:57)
--- NOTE | 2016-07-05 16:46 | CONS ---
DATE OF ADMISSION: 07/02/2016 DATE OF CONSULTATION: 07/05/2016 TYPE OF CONSULTATION: Pulmonary. REASON FOR CONSULTATION: Shortness of breath and pneumonia. HISTORY OF PRESENT ILLNESS: This is a 55-year-old gentleman with a history of congestive heart fail ure, coronary artery disease who presented to ER with complaints of fever, chills, cough and shortne ss of breath for the past 2 days' duration. He was found to have right lung pneumonia. Cultures we re obtained. Patient was started on broad-spectrum antibiotics. The patient was seen by nephrology in consultation also. His diuresis was continued. Clinically, the patient still does not feel bett er, although his white count has improved. The patient initially had hyponatremia, also with a sodi um 130, which is now improved to 135. He does have cough, although not able to bring up any sputum. Denies any other specific complaints. REVIEW OF SYSTEMS: CONSTITUTIONAL: Admitted to fever and chills. Denies night sweats. RESPIRATORY: As mentioned above. Denies any pleuritic chest pain. CARDIOVASCULAR: Denies anginal palpitation. GASTROINTESTINAL: Denies nausea, vomiting, diarrhea, abdominal pain. GENITOURINARY: Denies dysuria, hematuria. NEUROLOGICAL: Denies dizziness, loss of consciousness. PAST MEDICAL HISTORY: History of coronary artery disease, congestive heart failure and chronic kidn ey disease. ALLERGIES: DENIES. SOCIAL HABITS: Ex-smoker, quit several years ago, denies alcohol abuse. FAMILY HISTORY: Noncontributory. PHYSICAL EXAMINATION: VITAL SIGNS: Blood pressure 149/81, pulse 92, respiration 20, temperature 98. Currently on 5 liter s O2 nasal cannula, saturating 94%. HEENT: Pupils are equal and react to light. Anicteric sclerae. Dry oral mucosa. NECK: Supple, no JVD noted, no cervical lymphadenopathy noted, no carotid bruits heard. LUNGS: Expiratory wheezes are present bilaterally. CARDIOVASCULAR: S1 and S2 normal. ABDOMEN: Soft, obese, nontender. No organomegaly or masses noted. EXTREMITIES: No clubbing, cyanosis, or edema noted. No discrepancy in size of the calves noted. H omans sign negative. NEUROLOGIC: No focal deficits. LABORATORIES: Sodium 135, potassium 4.3, chloride 100, CO2 23, BUN 54, creatinine 2.22, glucose 217 . ABG done now shows a pH of 7.41, pCO2 of 37.5, pO2 of 73. WBC 8.9, hemoglobin 13.6, hematocrit 4 1.2, platelets 183. His white count was 13,000 on presentation, his sputum has grown Staph aureus, sensitivities are pending. Chest x-ray shows right upper lobe pneumonia. IMPRESSION: A 35-year-old male with: 1. Right upper lobe pneumonia. 2. Bronchospasm. Suspect chronic obstructive pulmonary disease exacerbation. 3. Acute on chronic renal failure. 4. History of congestive heart failure with EF of 45%. 5. History of coronary artery disease. 6. Hyponatremia, improved. RECOMMENDATIONS: 1. Continue current antibiotics. 2. Add Zithromax. 3. Check urine for legionella antigen. 4. Hold diuresis. 5. Oxygen. 6. Brief steroids. 7. Bronchodilators. 8. DVT prophylaxis. Dictated By: BERRY CRUZ MD, MA/GABY Conf#: [id number] DID#: [id number]
[2016-07-05] MEDS: AZITHROMYCIN 500MG/NS (PMX) 250 ML IVPB SCH (16:53)
--- NOTE | 2016-07-05 17:18 | RADRPT ---
PROCEDURE: XR Chest. CLINICAL INDICATION: Pneumonia. TECHNIQUE: Single frontal view of the chest was obtained. COMPARISON: 07/04/2016. FINDINGS: Cardiac silhouette is enlarged. There are aortic calcifications. There is pulmonary vascular conges tion. There is persistent air space consolidation in the right upper lobe. Diffuse interstitial op acities have not changed significantly in the interval. IMPRESSION: 1. Cardiomegaly with prominence of the upper lobe vasculature and diffuse interstitial prominence li john reflecting hydrostatic edema. 2. No significant change in dense airspace consolidation in the right upper lobe. This likely refl ects a superimposed pneumonia. 3. Aortic atherosclerosis. RPTAT: [facility] Physician Segundo Date Time Electronically viewed and signed by Roe Da Silva Physician on 07/05/2016 17:18 /
[2016-07-05] MEDS: VANCOMYCIN 1.25 GM in SOD CHLORIDE 0.9% 250 ML IVPB SCH (17:37)
[2016-07-05] MEDS: HYDROCODONE/APAP (5/325) TAB PO PRN (20:45)
[2016-07-05] MEDS ORDERED: ALPRAZOLAM 0.25 MG TAB PO PRN (21:00)
[2016-07-05] MEDS ORDERED: ALPRAZOLAM 0.5 MG TAB PO PRN (21:00)
[2016-07-05] MEDS ORDERED: ALPRAZOLAM 1 MG TAB PO PRN (21:30)
[2016-07-05] MEDS: ACETAMINOPHEN 325 MG TAB PO PRN (21:52)
[2016-07-05] MEDS: METHYLPREDNISOLONE 40 MG INJ IV SCH (21:54)
[2016-07-05] MEDS: INSULIN GLARGINE [LANtus] 3 ML PEN SC SCH (22:05)
[2016-07-06] VITALS (11 sets, daily range): BP systolic 97–135; BP diastolic 53–69; PULSE 67–86; RESP 15–19
[2016-07-06] MEDS: ALBUTEROL/IPRATROPIUM (NEB) 3 ML AMP HHN SCH ×6 (01:20→21:04)
[2016-07-06] MEDS: ACCUCHECK XX SCH (02:00)
[2016-07-06 07:51] LABS: ALBUMIN 2.5 g/dl (3.3-4.9); HEMATOCRIT 41.3 % (42.0-52.0); HEMOGLOBIN 13.6 g/dl (14.0-18.0); LYMPHOCYTES # 0.9 10^3/ul (0.8-2.9); LYMPHOCYTES % 14.9 % (15.0-51.0); MEAN CORPUSCULAR HEMOGLOBIN 26.2 pg (29.0-33.0); MEAN CORPUSCULAR VOLUME 79.6 fl (82.0-101.0); MEAN PLATELET VOLUME 9.8 fl (7.4-10.4); MONOCYTE # 0.3 10^3/ul (0.3-0.9); MONOCYTES % 5.5 % (0.0-11.0); NEUTROPHILS % 79.6 % (39.0-77.0); PLATELET COUNT 177 10^3/UL (140-440); POTASSIUM 4.3 mmol/L (3.5-5.1); RED BLOOD COUNT 5.18 10^6/ul (4.70-6.10); RED CELL DISTRIBUTION WIDTH 17.5 % (11.5-14.5); UNCORRECTED WBC 6.3 10^3/ul (4.8-10.8); WHITE BLOOD COUNT 6.3 10^3/ul (4.8-10.8)
[2016-07-06 07:53] LABS: CREATININE 2.36 mg/dl (0.61-1.24)
[2016-07-06 07:54] LABS: BILIRUBIN,INDIRECT 0.1 mg/dl (0-1.1); BILIRUBIN,TOTAL 0.1 mg/dl (0.2-1.3); CALCIUM 8.5 mg/dl (8.4-10.2); TOTAL PROTEIN 5.4 g/dl (6.1-8.1)
[2016-07-06 07:56] LABS: CONDITION 1; LH ANALYZER COMMENTS 1
[2016-07-06] MEDS: ISOSORBIDE DINITRATE 20 MG TAB PO SCH ×3 (09:10→21:00)
[2016-07-06] MEDS: CLOPIDOGREL 75 MG TAB PO SCH (09:10)
[2016-07-06] MEDS: FISH OIL 1,000 MG CAP PO SCH ×2 (09:10→21:12)
[2016-07-06] MEDS: RANOLAZINE (SR) 500 MG TAB PO SCH ×2 (09:10→21:12)
[2016-07-06] MEDS: FAMOTIDINE 20 MG TAB PO SCH ×2 (09:10→21:12)
[2016-07-06] MEDS: ASPIRIN 81 MG TAB PO SCH (09:10)
[2016-07-06] MEDS: METHYLPREDNISOLONE 40 MG INJ IV SCH ×2 (09:11→21:12)
[2016-07-06] MEDS: INSULIN ASPART [NOVOLOG] 3 ML PEN SC SCH ×7 (09:11→21:00)
[2016-07-06] MEDS: HEPARIN 5,000 UNIT/0.5 ML SYG SC SCH ×2 (09:12→21:16)
--- NOTE | 2016-07-06 09:29 | PN ---
Date/Time of Note Date/Time of Note DATE: 07/06/16 TIME: :22 Assessment/Plan VTE Prophylaxis VTE Prophylaxis Intervention: heparin Lines/Catheters IV Catheter Type (from [facility]): Peripheral IV Urinary Cath still in place: No Assessment/Plan Chief Complaint/Hosp Course 1. Right upper lobe Pneumonia, likely community-acquired vs other. Sputum CS with staph aureus. ->Continue Rocephin/Zithromax/Vancomycin.F/u urine legionella antigen. 2.Possible COPD exacerbation with bronchospasm. Improved. ->.Pulmonary on board.Continue bronchodilators,Steroids and Oxygen. 3. Sepsis secondary to pneumonia: Resolving. Will monitor. As patient on steroids now, WBC may raise up again. 4. Acute kidney injury on chronic kidney disease. SHERYL likely secondary to sepsis vs diuretic induced.Creatinine trending up. -> Nephrology on board. Monitor renal function closely and avoid nephrotoxins as much as possible. 5. Hyperkalemia with SHERYL: resolved 6. Hyponatremia. Resolved. 7. Essential hypertension: Stable. on isordil / hydralazine / coreg 8. Coronary artery disease, status post multiple percutaneous coronary interventions: On ASA/ Plavix/ Statin / BB / hydralazine/nitrates 9. Congestive heart failure with systolic dysfunction, known ejection fraction of 45%. Now stable. Continue medical management on Coreg, Imdur, and aspirin. Spot diuretics as needed . 10. Hyperglycemia with Type 2 diabetes. A1C 9.8: non compliance Continue accuchecks,ISS,Premeals and Lantus to 40 units. Diabetic education consult obtained and pending. 11. Dyslipidemia. Hold Lipitor due to liver fxn. Continue Fish oil. May need to change to low dose Zocor up on DC with LFT monitoring. 12. Hepatomegaly with Transaminase elevation-likely concurrent illness. Monitor closely. Avoid hepatotoxins as much as possible. 13. Obesity. Weight reduction advised 14.Hx of Nicotine abuse. Patient denied this before and now says he was a smoker. DVT prophylaxis: Heparin PUD prophylaxis: Pepcid PLAN:Continue current medical management.F/u with nephrology recs on trending up creatinine. F/u pulmonary recs. Continue with PT eval/rx. Case discussed with . Problems: Subjective 24 Hr Interval Summary Free Text/Dictation Patient had a brief episode of shortness of breath, desaturation and wheezing yesterday.Had pulmonary eval and today he feels better.Denies any SOB or other discomfort at rest. Exam/Review of Systems Vital Signs Vitals Vital Signs Date Time Temp Pulse Resp B/P Pulse Ox O2 Delivery O2 Flow Rate FiO2 07/06/16 08:35 75 07/06/16 08:13 5.0 07/06/16 08:13 18 94 Nasal Cannula 07/06/16 08:07 97.9 116/65 07/04/16 21:34 40 Intake and Output 07/05/16 07/05/16 07/06/16 15:00 23:00 07:00 Intake Total 1580 ml 300 ml Output Total 450 ml Balance 1130 ml 300 ml Exam General: Anxious looking, Obese male, not in any acute distress . HEENT: Normocephalic, Atraumatic, No laceration or hematoma; Eyes: PEERL, Conjunctiva clear, Anicteric sclera Neck: Supple without any lymphadenopathy, nontender, no JVD, no carotid bruits, trachea midline, no thyromegaly Cardiac: S1, S2 auscultated, regular rhythm and rate, no mumurs or gallop Pulmonary: Diminished breath sound bibasilar. Normal respiratory effort. No adventitious breath sounds GI: Abdomen normal to inspection. Soft, non tender, non- distended, no masses, no rebound tenderness or guarding. Bowel sounds active on all four quadrants Genitourinary: Deferred Extremities: No cyanosis, clubbing, or edema. Pulses [2+] bilaterally. Full ROM on all four extremities. No focal weakness appreciated. Neurologic: Anxious.Alert to person, place, time, and situation. Affect :ANXIOUS , intact sensation. Skin: Clean,dry, and intact. No ecchymosis, no rashes, or lesions Results Result Diagram: 07/06/16 0645 07/06/16 0645 Results 24 hrs Laboratory Tests Test 07/05/16 11:20 07/05/16 14:06 07/05/16 17:09 07/05/16 20:00 Bedside Glucose 174 93 116 Arterial Blood HCO3 23.5 Arterial Blood Base Excess -0.8 Arterial Blood Oxygen Saturation 94.8 L Surya Test ACCEPTAB Arterial Blood Gas Puncture Site Left Radial Arterial Blood Carboxyhemoglobin 0.2 Arterial Blood Date Drawn 07/05/2016 2:20:28 PM Arterial Blood Methemoglobin 0.2 Arterial Blood pCO2 (Temp correct) 37.5 Arterial Blood pH (Temp corrected) 7.414 Arterial Blood pO2 (Temp corrected) 73.0 L Blood Gas A-a O2 Differential 161.9 H Blood Gas Modality NASAL CANNULA Blood Gas Notified Time 07/05/2016 2:30:07 PM Blood Gas Notified Whom JLD Blood Gas Specimen Source Blood arterial Blood Gas Temperature 37.0 FiO2 39.0 Oxyhemoglobin Percent 94.4 Total Hemoglobin 14.5 Test 07/06/16 03:28 07/06/16 06:45 07/06/16 07:44 Bedside Glucose 101 167 Alanine Aminotransferase (ALT/SGPT) 84 H Albumin 2.5 L Alkaline Phosphatase 283 H Anion Gap 19 H Aspartate Amino Transf (AST/SGOT) 73 H Basophils # 0.0 Basophils % 0.0 Blood Morphology Comment Blood Urea Nitrogen 60 H Calcium Level 8.5 Carbon Dioxide Level 24 Chloride Level 101 Creatinine 2.36 H Direct Bilirubin 0.00 Eosinophils # 0.0 Eosinophils % 0.0 Glucose Level 153 Hematocrit 41.3 L Hemoglobin 13.6 L Indirect Bilirubin 0.1 Lymphocytes # 0.9 Lymphocytes % 14.9 L Mean Corpuscular Hemoglobin 26.2 L Mean Corpuscular Hemoglobin Concent 33.0 Mean Corpuscular Volume 79.6 L Mean Platelet Volume 9.8 Monocytes # 0.3 Monocytes % 5.5 Neutrophils # 5.0 Neutrophils % 79.6 H Nucleated Red Blood Cells # 0.0 Nucleated Red Blood Cells % 0.0 Platelet Count 177 Potassium Level 4.3 Red Blood Count 5.18 Red Cell Distribution Width 17.5 H Sodium Level 140 Total Bilirubin 0.1 L Total Protein 5.4 L White Blood Count 6.3 # Medications Medications Current Medications Aspirin (Aspirin) 81 mg DAILY PO Last administered on 07/06/16at 09:10; Admin Dose 81 MG; Start 07/03/16 at 09:00 Carvedilol (Coreg) 6.25 mg BID PO Last administered on 07/06/16at 09:11; Admin Dose 6.25 MG; Start 07/02/16 at 21:00 Clopidogrel Bisulfate (plaVIX) 75 mg DAILY PO Last administered on 07/06/16at 09:10; Admin Dose 75 MG; Start 07/03/16 at 09:00 Hydralazine HCl (Apresoline) 10 mg Q8 PO Last administered on 07/06/16 06:22 ; Admin Dose 10 MG; Start 07/02/16 at 14:00 Isosorbide Dinitrate (Isordil) 20 mg TID PO Last administered on 07/06/16at 09: 10; Admin Dose 20 MG; Start 07/02/16 at 13:00 Ranolazine (Ranexa) 1,000 mg Q12 PO Last administered on 07/06/16 09:10; Admin Dose 1,000 MG; Start 07/02/16 at 21:00 Atorvastatin Calcium (Lipitor) 80 mg HS PO Last administered on 07/03/16 21: 21; Admin Dose 80 MG; Start 07/02/16 at 21:00; Status Future Hold Ondansetron HCl (Zofran Inj) 4 mg Q6H PRN IV NAUSEA AND/OR VOMITING Last administered on 07/03/16at 12:46; Admin Dose 4 MG; Start 07/02/16 at 11:30 Acetaminophen (Tylenol Tab) 650 mg Q6H PRN PO PAIN LEVEL 1-3 OR FEVER Last administered on 07/05/16at 21:52; Admin Dose 650 MG; Start 07/02/16 at 11:30 Acetaminophen (Tylenol Supp) 650 mg Q6H PRN [place] PAIN LEVEL 1-3 OR FEVER; Start 07/02/16 at 11:30 Acetaminophen/ Hydrocodone Bitart ([place] (5/325)) 1 tab Q6H PRN PO MODERATE PAIN LEVEL 4-6 Last administered on 07/05/16at 20:45; Admin Dose 1 TAB; Start 07/02/16 at 11:30 Docusate Sodium (Colace) 100 mg Q12H PRN PO CONSTIPATION; Start 07/02/16 at 11 :30 Famotidine (Pepcid) 20 mg Q12 PO Last administered on 07/06/16at 09:10; Admin Dose 20 MG; Start 07/02/16 at 21:00 Heparin Sodium (Porcine) (Heparin (5000 Units/0.5 ml)) 5,000 unit Q12 SC Last administered on 07/06/16at 09:12; Admin Dose 5,000 UNIT; Start 07/02/16 at 21: 00 Miscellaneous Information 1 ea NOTE XX ; Start 07/02/16 at 12:00 Glucose (Glutose) 15 gm Q15M PRN PO DECREASED GLUCOSE; Start 07/02/16 at 12:00 Glucose (Glutose) 22.5 gm Q15M PRN PO DECREASED GLUCOSE; Start 07/02/16 at 12: 00 Dextrose (D50w Syringe) 25 ml Q15M PRN IV DECREASED GLUCOSE; Start 07/02/16 at 12:00 Dextrose (D50w Syringe) 50 ml Q15M PRN IV DECREASED GLUCOSE; Start 07/02/16 at 12:00 Glucagon (Glucagen) 1 mg Q15M PRN IM DECREASED GLUCOSE; Start 07/02/16 at 12: 00 Glucose (Glutose) 15 gm Q15M PRN BUCCAL DECREASED GLUCOSE; Start 07/02/16 at 12:00 Hydralazine HCl 10 mg 10 mg Q6H PRN IV SBP>160; Start 07/02/16 at 15:00 Sodium Chloride (NS) 1,000 ml @ 40 mls/hr Q24H IV Last administered on at 22:00; Admin Dose 40 MLS/HR; Start 07/02/16 at 15:00 Diagnostic Test (Pha) 1 ea 1 ea 02 XX Last administered on 07/04/16at 02:00; Admin Dose 1 EA; Start 07/03/16 at 02:00 Azithromycin 250 ml @ 250 mls/hr Q24H IVPB Last administered on 07/05/16at 16: 53; Admin Dose 250 MLS/HR; Start 07/04/16 at 17:00 Ceftriaxone Sodium (Rocephin) 50 ml @ 100 mls/hr Q24H IVPB Last administered on 07/05/16at 15:19; Admin Dose 100 MLS/HR; Start 07/04/16 at 16:00 Fish Oil (Fish Oil) 1,000 mg BID PO Last administered on 07/06/16at 09:10; Admin Dose 1,000 MG; Start 07/04/16 at 21:00 Insulin Glargine (Lantus) 40 unit HS SC Last administered on 07/05/16at 22:05; Admin Dose 40 UNIT; Start 07/05/16 at 21:00 Lorazepam (Ativan) 1 mg Q6H PRN IV anxiety; Start 07/05/16 at 14:00 Zolpidem Tartrate (Ambien) 5 mg HS PRN PO INSOMNIA; Start 07/05/16 at 14:00 Methylprednisolone Sodium Succinate (Solu-Medrol) 40 mg BID IV Last administered on 07/06/16at 09:11; Admin Dose 40 MG; Start 07/05/16 at 21:00 Lorazepam 1 mg 1 mg Q6H PRN IM anxiety; Start 07/05/16 at 15:00 Vancomycin HCl/ Sodium Chloride (Vancocin/NS) 250 ml @ 83.333 mls/ hr Q24H IVPB Last administered on 07/05/16at 17:37; Admin Dose 83.333 MLS/HR; Start at 17:00 Alprazolam (Xanax) 1 mg TID PRN PO ANXIETY Last administered on 07/05/16at 21: 52; Admin Dose 1 MG; Start 07/05/16 at 21:00 JOHN VALE NP Jul 06, 2016 09:29
[2016-07-06] MEDS: HYDROCODONE/APAP (5/325) TAB PO PRN (14:01)
--- NOTE | 2016-07-06 16:12 | CONS ---
Date/Time of Note Date/Time of Note DATE: 07/06/16 TIME: 16:11 Assessment/Plan Assessment/Plan Chief Complaint/Hosp Course IMPRESSION: 1. The patient has pneumonia. 2. jovani w ckd 3. Underlying chronic kidney disease. 4. Diabetes mellitus. 5. Hypertension. 6. Anemia. 7. Hyponatremia. 8. Obesity. 9. Dyslipidemia. plan f/u bmp stable Problems: Consultation Date/Type/Reason Admit Date/Time Jul 02, 2016 at 09:58 Type of Consultation: renal 24 HR Interval Summary Constitutional: other (sob better) Exam/Review of Systems Vital Signs Vitals Vital Signs Date Time Temp Pulse Resp B/P Pulse Ox O2 Delivery O2 Flow Rate FiO2 07/06/16 16:06 98.1 70 18 135/58 98 07/06/16 13:05 Nasal Cannula 5.0 07/04/16 21:34 40 Intake and Output 07/05/16 07/05/16 07/06/16 15:00 23:00 07:00 Intake Total 1580 ml 300 ml Output Total 450 ml Balance 1130 ml 300 ml Exam Neck: supple Respiratory: clear to auscultation, diminished breath sounds Cardiovascular: regular rate and rhythm Gastrointestinal: soft Extremities: normal pulses Results Result Diagram: 07/06/16 0645 07/06/16 0645 Results 24 hrs Laboratory Tests Test 07/05/16 17:09 07/05/16 20:00 07/06/16 03:28 07/06/16 06:45 Bedside Glucose 93 116 101 Alanine Aminotransferase (ALT/SGPT) 84 H Albumin 2.5 L Alkaline Phosphatase 283 H Anion Gap 19 H Aspartate Amino Transf (AST/SGOT) 73 H Basophils # 0.0 Basophils % 0.0 Blood Morphology Comment Blood Urea Nitrogen 60 H Calcium Level 8.5 Carbon Dioxide Level 24 Chloride Level 101 Creatinine 2.36 H Direct Bilirubin 0.00 Eosinophils # 0.0 Eosinophils % 0.0 Glucose Level 153 Hematocrit 41.3 L Hemoglobin 13.6 L Indirect Bilirubin 0.1 Lymphocytes # 0.9 Lymphocytes % 14.9 L Mean Corpuscular Hemoglobin 26.2 L Mean Corpuscular Hemoglobin Concent 33.0 Mean Corpuscular Volume 79.6 L Mean Platelet Volume 9.8 Monocytes # 0.3 Monocytes % 5.5 Neutrophils # 5.0 Neutrophils % 79.6 H Nucleated Red Blood Cells # 0.0 Nucleated Red Blood Cells % 0.0 Platelet Count 177 Potassium Level 4.3 Red Blood Count 5.18 Red Cell Distribution Width 17.5 H Sodium Level 140 Total Bilirubin 0.1 L Total Protein 5.4 L White Blood Count 6.3 # Test 07/06/16 07:44 07/06/16 11:59 Bedside Glucose 167 257 H Medications Medications Current Medications Aspirin (Aspirin) 81 mg DAILY PO Last administered on 07/06/16 09:10; Admin Dose 81 MG; Start 07/03/16 at 09:00 Carvedilol (Coreg) 6.25 mg BID PO Last administered on 07/06/16 09:11; Admin Dose 6.25 MG; Start 07/02/16 at 21:00 Clopidogrel Bisulfate (plaVIX) 75 mg DAILY PO Last administered on 07/06/16 09:10; Admin Dose 75 MG; Start 07/03/16 at 09:00 Hydralazine HCl (Apresoline) 10 mg Q8 PO Last administered on 07/06/16 14:01 ; Admin Dose 10 MG; Start 07/02/16 at 14:00 Isosorbide Dinitrate (Isordil) 20 mg TID PO Last administered on 07/06/16 14: 01; Admin Dose 20 MG; Start 07/02/16 at 13:00 Ranolazine (Ranexa) 1,000 mg Q12 PO Last administered on 07/06/16 09:10; Admin Dose 1,000 MG; Start 07/02/16 at 21:00 Atorvastatin Calcium (Lipitor) 80 mg HS PO Last administered on 07/03/16at 21: 21; Admin Dose 80 MG; Start 07/02/16 at 21:00; Status Future Hold Ondansetron HCl (Zofran Inj) 4 mg Q6H PRN IV NAUSEA AND/OR VOMITING Last administered on 07/03/16 12:46; Admin Dose 4 MG; Start 07/02/16 at 11:30 Acetaminophen (Tylenol Tab) 650 mg Q6H PRN PO PAIN LEVEL 1-3 OR FEVER Last administered on 07/05/16 21:52; Admin Dose 650 MG; Start 07/02/16 at 11:30 Acetaminophen (Tylenol Supp) 650 mg Q6H PRN [place] PAIN LEVEL 1-3 OR FEVER; Start 07/02/16 at 11:30 Acetaminophen/ Hydrocodone Bitart ([place] (5/325)) 1 tab Q6H PRN PO MODERATE PAIN LEVEL 4-6 Last administered on 07/06/16at 14:01; Admin Dose 1 TAB; Start 07/02/16 at 11:30 Docusate Sodium (Colace) 100 mg Q12H PRN PO CONSTIPATION; Start 07/02/16 at 11 :30 Famotidine (Pepcid) 20 mg Q12 PO Last administered on 07/06/16at 09:10; Admin Dose 20 MG; Start 07/02/16 at 21:00 Heparin Sodium (Porcine) (Heparin (5000 Units/0.5 ml)) 5,000 unit Q12 SC Last administered on 07/06/16at 09:12; Admin Dose 5,000 UNIT; Start 07/02/16 at 21: 00 Miscellaneous Information 1 ea NOTE XX ; Start 07/02/16 at 12:00 Glucose (Glutose) 15 gm Q15M PRN PO DECREASED GLUCOSE; Start 07/02/16 at 12:00 Glucose (Glutose) 22.5 gm Q15M PRN PO DECREASED GLUCOSE; Start 07/02/16 at 12: 00 Dextrose (D50w Syringe) 25 ml Q15M PRN IV DECREASED GLUCOSE; Start 07/02/16 at 12:00 Dextrose (D50w Syringe) 50 ml Q15M PRN IV DECREASED GLUCOSE; Start 07/02/16 at 12:00 Glucagon (Glucagen) 1 mg Q15M PRN IM DECREASED GLUCOSE; Start 07/02/16 at 12: 00 Glucose (Glutose) 15 gm Q15M PRN BUCCAL DECREASED GLUCOSE; Start 07/02/16 at 12:00 Hydralazine HCl 10 mg 10 mg Q6H PRN IV SBP>160; Start 07/02/16 at 15:00 Sodium Chloride (NS) 1,000 ml @ 40 mls/hr Q24H IV Last administered on at 22:00; Admin Dose 40 MLS/HR; Start 07/02/16 at 15:00 Diagnostic Test (Pha) 1 ea 1 ea 02 XX Last administered on 07/04/16at 02:00; Admin Dose 1 EA; Start 07/03/16 at 02:00 Azithromycin 250 ml @ 250 mls/hr Q24H IVPB Last administered on 07/05/16at 16: 53; Admin Dose 250 MLS/HR; Start 07/04/16 at 17:00 Ceftriaxone Sodium (Rocephin) 50 ml @ 100 mls/hr Q24H IVPB Last administered on 07/05/16at 15:19; Admin Dose 100 MLS/HR; Start 07/04/16 at 16:00 Fish Oil (Fish Oil) 1,000 mg BID PO Last administered on 07/06/16at 09:10; Admin Dose 1,000 MG; Start 07/04/16 at 21:00 Insulin Glargine (Lantus) 40 unit HS SC Last administered on 07/05/16at 22:05; Admin Dose 40 UNIT; Start 07/05/16 at 21:00 Lorazepam (Ativan) 1 mg Q6H PRN IV anxiety; Start 07/05/16 at 14:00 Zolpidem Tartrate (Ambien) 5 mg HS PRN PO INSOMNIA; Start 07/05/16 at 14:00 Methylprednisolone Sodium Succinate (Solu-Medrol) 40 mg BID IV Last administered on 07/06/16at 09:11; Admin Dose 40 MG; Start 07/05/16 at 21:00 Lorazepam 1 mg 1 mg Q6H PRN IM anxiety; Start 07/05/16 at 15:00 Vancomycin HCl/ Sodium Chloride (Vancocin/NS) 250 ml @ 83.333 mls/ hr Q24H IVPB Last administered on 07/05/16at 17:37; Admin Dose 83.333 MLS/HR; Start at 17:00 Alprazolam (Xanax) 1 mg TID PRN PO ANXIETY Last administered on 07/05/16at 21: 52; Admin Dose 1 MG; Start 07/05/16 at 21:00 Miscellaneous Information (*Rx Drug Level Order Reminder*) VANCO TROUGH @ 1, 600 ON ... ONCE ONCE XX ; Start 07/07/16 at 16:00; Stop 07/07/16 at 16:01 ROBB ALBERT MD Jul 06, 2016 16:12
[2016-07-06] MEDS: CEFTRIAXONE 1 GM/50 ML (PMX) 50 ML IVPB SCH (16:23)
[2016-07-06] MEDS: VANCOMYCIN 1.25 GM in SOD CHLORIDE 0.9% 250 ML IVPB SCH (17:23)
[2016-07-06] MEDS: AZITHROMYCIN 500MG/NS (PMX) 250 ML IVPB SCH (17:23)
[2016-07-06] MEDS ORDERED: INSULIN ASPART [NOVOLOG] 3 ML PEN SC ONE (21:00)
[2016-07-06] MEDS: INSULIN GLARGINE [LANtus] 3 ML PEN SC SCH (21:15)
[2016-07-07] VITALS (12 sets, daily range): BP systolic 118–157; BP diastolic 62–85; PULSE 71–81; RESP 18–20
[2016-07-07] MEDS: ALBUTEROL/IPRATROPIUM (NEB) 3 ML AMP HHN SCH ×6 (01:27→20:09)
[2016-07-07] MEDS: ACCUCHECK XX SCH (02:00)
[2016-07-07] MEDS: HYDROCODONE/APAP (5/325) TAB PO PRN ×2 (03:11→09:11)
[2016-07-07 07:31] LABS: BASOPHILS % 0.1 % (0.0-2.0); HEMATOCRIT 42.5 % (42.0-52.0); HEMOGLOBIN 14.2 g/dl (14.0-18.0); LYMPHOCYTES % 14.7 % (15.0-51.0); MEAN CORPUSCULAR HEMOGLOBIN 26.3 pg (29.0-33.0); MEAN CORPUSCULAR HGB CONC 33.4 g/dl (32.0-37.0); MEAN CORPUSCULAR VOLUME 78.8 fl (82.0-101.0); MEAN PLATELET VOLUME 9.9 fl (7.4-10.4); MONOCYTE # 0.4 10^3/ul (0.3-0.9); MONOCYTES % 6.3 % (0.0-11.0); NEUTROPHIL # 5.6 10^3/ul (1.6-7.5); NEUTROPHILS % 78.9 % (39.0-77.0); PLATELET COUNT 213 10^3/UL (140-440); POTASSIUM 4.2 mmol/L (3.5-5.1); RED BLOOD COUNT 5.39 10^6/ul (4.70-6.10); RED CELL DISTRIBUTION WIDTH 17.9 % (11.5-14.5); UNCORRECTED WBC 7.1 10^3/ul (4.8-10.8); WHITE BLOOD COUNT 7.1 10^3/ul (4.8-10.8)
[2016-07-07 07:33] LABS: CREATININE 1.8 mg/dl (0.61-1.24)
[2016-07-07 07:34] LABS: CALCIUM 8.6 mg/dl (8.4-10.2)
[2016-07-07 07:35] LABS: MAGNESIUM 2.6 mg/dl (1.7-2.5)
[2016-07-07 07:54] LABS: CONDITION 1; LH ANALYZER COMMENTS 1
[2016-07-07] MEDS: RANOLAZINE (SR) 500 MG TAB PO SCH ×2 (09:11→21:09)
[2016-07-07] MEDS: ASPIRIN 81 MG TAB PO SCH (09:12)
[2016-07-07] MEDS: CLOPIDOGREL 75 MG TAB PO SCH (09:12)
[2016-07-07] MEDS: FAMOTIDINE 20 MG TAB PO SCH ×2 (09:12→21:09)
[2016-07-07] MEDS: FISH OIL 1,000 MG CAP PO SCH ×2 (09:12→21:08)
[2016-07-07] MEDS: METHYLPREDNISOLONE 40 MG INJ IV SCH (09:13)
[2016-07-07] MEDS: ISOSORBIDE DINITRATE 20 MG TAB PO SCH ×3 (09:13→21:08)
[2016-07-07] MEDS: HEPARIN 5,000 UNIT/0.5 ML SYG SC SCH ×2 (09:15→21:13)
[2016-07-07] MEDS: INSULIN ASPART [NOVOLOG] 3 ML PEN SC SCH ×8 (09:16→21:17)
[2016-07-07] MEDS: SOD CHLORIDE 0.9% 1,000 ML IV SCH (12:04)
--- NOTE | 2016-07-07 12:44 | CONS ---
Date/Time of Note Date/Time of Note DATE: 07/07/16 TIME: 12:41 Assessment/Plan Assessment/Plan Additional Assessment/Plan 1. SHERYL on CKD III due to sepsis 2. sepsis due to Pneumonia 3. RUL PNA 4. Possible COPD exacerbation 5. hyperglycemia Plan: Cr 1.8-improved much better need better BS control Change solumedrol to PO prednisone will follow up Consultation Date/Type/Reason Admit Date/Time Jul 02, 2016 at 09:58 Initial Consult Date Type of Consultation: NEPHROLOGY Reason for Consultation SHERYL on CKD Referring Provider: NARENDRA CHAWLA MD Exam/Review of Systems Vital Signs Vitals Vital Signs Date Time Temp Pulse Resp B/P Pulse Ox O2 Delivery O2 Flow Rate FiO2 07/07/16 11:23 98.6 68 20 130/74 95 07/07/16 08:04 Nasal Cannula 4.0 07/04/16 21:34 40 Intake and Output 07/06/16 07/06/16 07/07/16 15:00 23:00 07:00 Intake Total 1020 ml 350 ml Output Total 450 ml 800 ml Balance 570 ml -450 ml Results Result Diagram: 07/07/16 0630 07/07/16 1130 Results 24 hrs Laboratory Tests Test 07/06/16 16:44 07/06/16 20:14 07/07/16 01:42 07/07/16 06:30 Bedside Glucose 338 H 345 H 243 H Anion Gap 16 Basophils # 0.0 Basophils % 0.1 Blood Morphology Comment Blood Urea Nitrogen 64 H Calcium Level 8.6 Carbon Dioxide Level 26 Chloride Level 103 Creatinine 1.80 H Eosinophils # 0.0 Eosinophils % 0.0 Glucose Level 264 #H Hematocrit 42.5 Hemoglobin 14.2 Lymphocytes # 1.0 Lymphocytes % 14.7 L Magnesium Level 2.6 H Mean Corpuscular Hemoglobin 26.3 L Mean Corpuscular Hemoglobin Concent 33.4 Mean Corpuscular Volume 78.8 L Mean Platelet Volume 9.9 Monocytes # 0.4 Monocytes % 6.3 Neutrophils # 5.6 Neutrophils % 78.9 H Nucleated Red Blood Cells # 0.0 Nucleated Red Blood Cells % 0.0 Platelet Count 213 # Potassium Level 4.2 Red Blood Count 5.39 Red Cell Distribution Width 17.9 H Sodium Level 141 White Blood Count 7.1 Test 07/07/16 06:49 07/07/16 07:43 07/07/16 11:04 07/07/16 11:05 Bedside Glucose 261 H 261 H 387 H 483 *H Test 07/07/16 11:30 Glucose Level 368 H Medications Medications Current Medications Aspirin (Aspirin) 81 mg DAILY PO Last administered on 07/07/16 09:12; Admin Dose 81 MG; Start 07/03/16 at 09:00 Carvedilol (Coreg) 6.25 mg BID PO Last administered on 07/07/16 09:12; Admin Dose 6.25 MG; Start 07/02/16 at 21:00 Clopidogrel Bisulfate (plaVIX) 75 mg DAILY PO Last administered on 07/07/16 09:12; Admin Dose 75 MG; Start 07/03/16 at 09:00 Hydralazine HCl (Apresoline) 10 mg Q8 PO Last administered on 07/06/16 14:01 ; Admin Dose 10 MG; Start 07/02/16 at 14:00 Isosorbide Dinitrate (Isordil) 20 mg TID PO Last administered on 07/07/16 09: 13; Admin Dose 20 MG; Start 07/02/16 at 13:00 Ranolazine (Ranexa) 1,000 mg Q12 PO Last administered on 07/07/16 09:11; Admin Dose 1,000 MG; Start 07/02/16 at 21:00 Atorvastatin Calcium (Lipitor) 80 mg HS PO Last administered on 07/03/16 21: 21; Admin Dose 80 MG; Start 07/02/16 at 21:00; Status Future Hold Ondansetron HCl (Zofran Inj) 4 mg Q6H PRN IV NAUSEA AND/OR VOMITING Last administered on 07/03/16at 12:46; Admin Dose 4 MG; Start 07/02/16 at 11:30 Acetaminophen (Tylenol Tab) 650 mg Q6H PRN PO PAIN LEVEL 1-3 OR FEVER Last administered on 07/05/16 21:52; Admin Dose 650 MG; Start 07/02/16 at 11:30 Acetaminophen (Tylenol Supp) 650 mg Q6H PRN [place] PAIN LEVEL 1-3 OR FEVER; Start 07/02/16 at 11:30 Acetaminophen/ Hydrocodone Bitart ([place] (5/325)) 1 tab Q6H PRN PO MODERATE PAIN LEVEL 4-6 Last administered on 07/07/16at 09:11; Admin Dose 1 TAB; Start 07/02/16 at 11:30 Docusate Sodium (Colace) 100 mg Q12H PRN PO CONSTIPATION; Start 07/02/16 at 11 :30 Famotidine (Pepcid) 20 mg Q12 PO Last administered on 07/07/16at 09:12; Admin Dose 20 MG; Start 07/02/16 at 21:00 Heparin Sodium (Porcine) (Heparin (5000 Units/0.5 ml)) 5,000 unit Q12 SC Last administered on 07/07/16at 09:15; Admin Dose 5,000 UNIT; Start 07/02/16 at 21: 00 Miscellaneous Information 1 ea NOTE XX ; Start 07/02/16 at 12:00 Glucose (Glutose) 15 gm Q15M PRN PO DECREASED GLUCOSE; Start 07/02/16 at 12:00 Glucose (Glutose) 22.5 gm Q15M PRN PO DECREASED GLUCOSE; Start 07/02/16 at 12: 00 Dextrose (D50w Syringe) 25 ml Q15M PRN IV DECREASED GLUCOSE; Start 07/02/16 at 12:00 Dextrose (D50w Syringe) 50 ml Q15M PRN IV DECREASED GLUCOSE; Start 07/02/16 at 12:00 Glucagon (Glucagen) 1 mg Q15M PRN IM DECREASED GLUCOSE; Start 07/02/16 at 12: 00 Glucose (Glutose) 15 gm Q15M PRN BUCCAL DECREASED GLUCOSE; Start 07/02/16 at 12:00 Hydralazine HCl 10 mg 10 mg Q6H PRN IV SBP>160; Start 07/02/16 at 15:00 Sodium Chloride 1,000 ml @ 40 mls/hr Q24H IV Last administered on 07/07/16at 12:04; Admin Dose 40 MLS/HR; Start 07/02/16 at 15:00 Azithromycin 250 ml @ 250 mls/hr Q24H IVPB Last administered on 07/06/16at 17: 23; Admin Dose 250 MLS/HR; Start 07/04/16 at 17:00 Ceftriaxone Sodium (Rocephin) 50 ml @ 100 mls/hr Q24H IVPB Last administered on 07/06/16at 16:23; Admin Dose 100 MLS/HR; Start 07/04/16 at 16:00 Fish Oil (Fish Oil) 1,000 mg BID PO Last administered on 07/07/16at 09:12; Admin Dose 1,000 MG; Start 07/04/16 at 21:00 Insulin Glargine (Lantus) 40 unit HS SC Last administered on 07/06/16at 21:15; Admin Dose 40 UNIT; Start 07/05/16 at 21:00 Lorazepam (Ativan) 1 mg Q6H PRN IV anxiety; Start 07/05/16 at 14:00 Zolpidem Tartrate (Ambien) 5 mg HS PRN PO INSOMNIA; Start 07/05/16 at 14:00 Lorazepam 1 mg 1 mg Q6H PRN IM anxiety; Start 07/05/16 at 15:00 Vancomycin HCl/ Sodium Chloride (Vancocin/NS) 250 ml @ 83.333 mls/ hr Q24H IVPB Last administered on 07/06/16at 17:23; Admin Dose 83.333 MLS/HR; Start at 17:00 Alprazolam (Xanax) 1 mg TID PRN PO ANXIETY Last administered on 07/05/16at 21: 52; Admin Dose 1 MG; Start 07/05/16 at 21:00 Miscellaneous Information (*Rx Drug Level Order Reminder*) VANCO TROUGH @ 1, 600 ON ... ONCE ONCE XX ; Start 07/07/16 at 16:00; Stop 07/07/16 at 16:01 Diagnostic Test (Pha) (Accucheck) 1 ea 02 XX ; Start 07/08/16 at 02:00 Methylprednisolone Sodium Succinate (Solu-Medrol) 20 mg BID IV ; Start at 21:00 ANDREW BOWLING MD Jul 07, 2016 12:44
[2016-07-07] MEDS: OXYCODONE/ACETAMINOPHEN (5/325) TAB PO PRN ×2 (12:45→21:25)
--- NOTE | 2016-07-07 14:19 | PN ---
Date/Time of Note Date/Time of Note DATE: 07/07/16 TIME: 14:10 Assessment/Plan VTE Prophylaxis VTE Prophylaxis Intervention: SCD's Lines/Catheters IV [facility] Type [facility] Peripheral IV Urinary Cath still in place: No Assessment/Plan Chief Complaint/Hosp Course 1. Right upper lobe Pneumonia, likely community-acquired vs other. Sputum CS with staph aureus. cont on abx 2.Possible COPD exacerbation with bronchospasm. Improved. continue on bronchodilators. taper steroid. titrate o2 as tolerated 3. Sepsis secondary to pneumonia: Resolving. Will monitor. cont abx 4. Acute kidney injury on chronic kidney disease. SHERYL likely secondary to sepsis vs diuretic induced. monitor renal panel. follow up with nephrology recs 5. Hyperkalemia with SHERYL: resolved 6. Hyponatremia. Resolved. 7. Essential hypertension: Stable. 8. Coronary artery disease, status post multiple PCI. cont on antiplatelet therapy and statin 9. Congestive heart failure with systolic dysfunction, known ejection fraction of 45%. cont optimization with cardiovascular medications 10. Hyperglycemia with Type 2 diabetes. A1C 9.8: non compliance. continue on insulin regimen. Adjust as needed. 11. Dyslipidemia. continue on fish oil. statin on hold due to transaminitis 12. Hepatomegaly with Transaminase elevation-likely concurrent illness. Monitor . Avoid hepatotoxins 13. Obesity. Weight reduction advised 14.Hx of Nicotine abuse. Cigarette smoking cessation advised. DVT prophylaxis: Heparin PUD prophylaxis: Pepcid PLAN: Continue with physical therapy. Await clinical improvement of respiratory status. Monitor renal function. Discharge him when medically stable and cleared by consultants Discussed plan of care with Dr. Kc Problems: Subjective 24 Hr Interval Summary Free Text/Dictation still with reported shortness of breath and general weakness Exam/Review of Systems Vital Signs Vitals Vital Signs Date Time Temp Pulse Resp B/P Pulse Ox O2 Delivery O2 Flow Rate FiO2 07/07/16 13:15 4.0 07/07/16 13:15 77 18 98 Nasal Cannula 07/07/16 11:23 98.6 130/74 07/04/16 21:34 40 Intake and Output 07/06/16 07/06/16 07/07/16 15:00 23:00 07:00 Intake Total 1020 ml 350 ml Output Total 450 ml 800 ml Balance 570 ml -450 ml Exam General: anxious. Eyes: pupils equal round, Anicteric sclera Neck: Supple nontender, no JVD Cardiac: S1, S2 auscultated, regular rhythm and rate Pulmonary: diminished at lung bases GI: Abdomen soft nontender nondistended, bowel sounds active Extremities: No edema bilateral lower extremities Skin: Clean dry and intact Neurologic: Alert to person place and time and situation Results Result Diagram: 07/07/16 0630 07/07/16 1130 Results 24 hrs Laboratory Tests Test 07/06/16 16:44 07/06/16 20:14 07/07/16 01:42 07/07/16 06:30 Bedside Glucose 338 H 345 H 243 H Anion Gap 16 Basophils # 0.0 Basophils % 0.1 Blood Morphology Comment Blood Urea Nitrogen 64 H Calcium Level 8.6 Carbon Dioxide Level 26 Chloride Level 103 Creatinine 1.80 H Eosinophils # 0.0 Eosinophils % 0.0 Glucose Level 264 #H Hematocrit 42.5 Hemoglobin 14.2 Lymphocytes # 1.0 Lymphocytes % 14.7 L Magnesium Level 2.6 H Mean Corpuscular Hemoglobin 26.3 L Mean Corpuscular Hemoglobin Concent 33.4 Mean Corpuscular Volume 78.8 L Mean Platelet Volume 9.9 Monocytes # 0.4 Monocytes % 6.3 Neutrophils # 5.6 Neutrophils % 78.9 H Nucleated Red Blood Cells # 0.0 Nucleated Red Blood Cells % 0.0 Platelet Count 213 # Potassium Level 4.2 Red Blood Count 5.39 Red Cell Distribution Width 17.9 H Sodium Level 141 White Blood Count 7.1 Test 07/07/16 06:49 07/07/16 07:43 07/07/16 11:04 07/07/16 11:05 Bedside Glucose 261 H 261 H 387 H 483 *H Test 07/07/16 11:30 Glucose Level 368 H Medications Medications Current Medications Aspirin (Aspirin) 81 mg DAILY PO Last administered on 07/07/16at 09:12; Admin Dose 81 MG; Start 07/03/16 at 09:00 Carvedilol (Coreg) 6.25 mg BID PO Last administered on 07/07/16at 09:12; Admin Dose 6.25 MG; Start 07/02/16 at 21:00 Clopidogrel Bisulfate (plaVIX) 75 mg DAILY PO Last administered on 07/07/16at 09:12; Admin Dose 75 MG; Start 07/03/16 at 09:00 Hydralazine HCl (Apresoline) 10 mg Q8 PO Last administered on 07/07/16 13:20 ; Admin Dose 10 MG; Start 07/02/16 at 14:00 Isosorbide Dinitrate (Isordil) 20 mg TID PO Last administered on 07/07/16 13: 19; Admin Dose 20 MG; Start 07/02/16 at 13:00 Ranolazine (Ranexa) 1,000 mg Q12 PO Last administered on 07/07/16 09:11; Admin Dose 1,000 MG; Start 07/02/16 at 21:00 Atorvastatin Calcium (Lipitor) 80 mg HS PO Last administered on 07/03/16 21: 21; Admin Dose 80 MG; Start 07/02/16 at 21:00; Status Future Hold Ondansetron HCl (Zofran Inj) 4 mg Q6H PRN IV NAUSEA AND/OR VOMITING Last administered on 07/03/16 12:46; Admin Dose 4 MG; Start 07/02/16 at 11:30 Acetaminophen (Tylenol Tab) 650 mg Q6H PRN PO PAIN LEVEL 1-3 OR FEVER Last administered on 07/05/16at 21:52; Admin Dose 650 MG; Start 07/02/16 at 11:30 Acetaminophen (Tylenol Supp) 650 mg Q6H PRN [place] PAIN LEVEL 1-3 OR FEVER; Start 07/02/16 at 11:30 Acetaminophen/ Hydrocodone Bitart ([place] (5/325)) 1 tab Q6H PRN PO MODERATE PAIN LEVEL 4-6 Last administered on 07/07/16 09:11; Admin Dose 1 TAB; Start 07/02/16 at 11:30 Docusate Sodium (Colace) 100 mg Q12H PRN PO CONSTIPATION; Start 07/02/16 at 11 :30 Famotidine (Pepcid) 20 mg Q12 PO Last administered on 07/07/16 09:12; Admin Dose 20 MG; Start 07/02/16 at 21:00 Heparin Sodium (Porcine) (Heparin (5000 Units/0.5 ml)) 5,000 unit Q12 SC Last administered on 07/07/16 09:15; Admin Dose 5,000 UNIT; Start 07/02/16 at 21: 00 Miscellaneous Information 1 ea NOTE XX ; Start 07/02/16 at 12:00 Glucose (Glutose) 15 gm Q15M PRN PO DECREASED GLUCOSE; Start 07/02/16 at 12:00 Glucose (Glutose) 22.5 gm Q15M PRN PO DECREASED GLUCOSE; Start 07/02/16 at 12: 00 Dextrose (D50w Syringe) 25 ml Q15M PRN IV DECREASED GLUCOSE; Start 07/02/16 at 12:00 Dextrose (D50w Syringe) 50 ml Q15M PRN IV DECREASED GLUCOSE; Start 07/02/16 at 12:00 Glucagon (Glucagen) 1 mg Q15M PRN IM DECREASED GLUCOSE; Start 07/02/16 at 12: 00 Glucose (Glutose) 15 gm Q15M PRN BUCCAL DECREASED GLUCOSE; Start 07/02/16 at 12:00 Hydralazine HCl 10 mg 10 mg Q6H PRN IV SBP>160; Start 07/02/16 at 15:00 Sodium Chloride 1,000 ml @ 40 mls/hr Q24H IV Last administered on 07/07/16at 12:04; Admin Dose 40 MLS/HR; Start 07/02/16 at 15:00 Azithromycin 250 ml @ 250 mls/hr Q24H IVPB Last administered on 07/06/16at 17: 23; Admin Dose 250 MLS/HR; Start 07/04/16 at 17:00 Ceftriaxone Sodium (Rocephin) 50 ml @ 100 mls/hr Q24H IVPB Last administered on 07/06/16at 16:23; Admin Dose 100 MLS/HR; Start 07/04/16 at 16:00 Fish Oil (Fish Oil) 1,000 mg BID PO Last administered on 07/07/16at 09:12; Admin Dose 1,000 MG; Start 07/04/16 at 21:00 Insulin Glargine (Lantus) 40 unit HS SC Last administered on 07/06/16at 21:15; Admin Dose 40 UNIT; Start 07/05/16 at 21:00 Lorazepam (Ativan) 1 mg Q6H PRN IV anxiety; Start 07/05/16 at 14:00 Zolpidem Tartrate (Ambien) 5 mg HS PRN PO INSOMNIA; Start 07/05/16 at 14:00 Lorazepam 1 mg 1 mg Q6H PRN IM anxiety; Start 07/05/16 at 15:00 Vancomycin HCl/ Sodium Chloride (Vancocin/NS) 250 ml @ 83.333 mls/ hr Q24H IVPB Last administered on 07/06/16at 17:23; Admin Dose 83.333 MLS/HR; Start at 17:00 Alprazolam (Xanax) 1 mg TID PRN PO ANXIETY Last administered on 07/05/16at 21: 52; Admin Dose 1 MG; Start 07/05/16 at 21:00 Miscellaneous Information (*Rx Drug Level Order Reminder*) VANCO TROUGH @ 1, 600 ON ... ONCE ONCE XX ; Start 07/07/16 at 16:00; Stop 07/07/16 at 16:01 Diagnostic Test (Pha) (Accucheck) 1 ea 02 XX ; Start 07/08/16 at 02:00 Hydromorphone HCl (Dilaudid) 0.5 mg Q4H PRN IV PAIN; Start 07/07/16 at 13:00 Oxycodone/ Acetaminophen (Percocet (5/ 325)) 1 tab Q4H PRN PO PAIN Last administered on 07/07/16at 12:45; Admin Dose 1 TAB; Start 07/07/16 at 13:00 Prednisone (Prednisone) 20 mg DAILY PO ; Start 07/08/16 at 09:00 JESE MCCOY Jul 07, 2016 14:19
[2016-07-07] MEDS: CEFTRIAXONE 1 GM/50 ML (PMX) 50 ML IVPB SCH (16:16)
[2016-07-07] MEDS: VANCOMYCIN 1.25 GM in SOD CHLORIDE 0.9% 250 ML IVPB SCH (17:17)
[2016-07-07] MEDS: AZITHROMYCIN 500MG/NS (PMX) 250 ML IVPB SCH (17:17)
[2016-07-07] MEDS ORDERED: METHYLPREDNISOLONE 40 MG INJ IV SCH (21:00)
[2016-07-07] MEDS: INSULIN GLARGINE [LANtus] 3 ML PEN SC SCH (21:19)
[2016-07-08] VITALS (11 sets, daily range): BP systolic 127–177; BP diastolic 64–79; PULSE 72–82; RESP 18–20
[2016-07-08] MEDS: ALBUTEROL/IPRATROPIUM (NEB) 3 ML AMP HHN SCH ×6 (01:16→20:05)
[2016-07-08] MEDS: ACCUCHECK XX SCH (01:59)
[2016-07-08] MEDS ORDERED: ACCUCHECK XX SCH (02:00)
[2016-07-08 06:35] LABS: HEMATOCRIT 43.4 % (42.0-52.0); HEMOGLOBIN 14.1 g/dl (14.0-18.0); LYMPHOCYTES # 1.2 10^3/ul (0.8-2.9); LYMPHOCYTES % 10.8 % (15.0-51.0); MEAN CORPUSCULAR HGB CONC 32.6 g/dl (32.0-37.0); MEAN CORPUSCULAR VOLUME 79.7 fl (82.0-101.0); MEAN PLATELET VOLUME 9.6 fl (7.4-10.4); MONOCYTE # 0.8 10^3/ul (0.3-0.9); MONOCYTES % 6.7 % (0.0-11.0); NEUTROPHIL # 9.4 10^3/ul (1.6-7.5); NEUTROPHILS % 82.5 % (39.0-77.0); PLATELET COUNT 248 10^3/UL (140-440); RED BLOOD COUNT 5.44 10^6/ul (4.70-6.10); RED CELL DISTRIBUTION WIDTH 17.5 % (11.5-14.5); UNCORRECTED WBC 11.4 10^3/ul (4.8-10.8); WHITE BLOOD COUNT 11.4 10^3/ul (4.8-10.8)
[2016-07-08 06:48] LABS: POTASSIUM 4.4 mmol/L (3.5-5.1)
[2016-07-08 06:50] LABS: CREATININE 1.78 mg/dl (0.61-1.24)
[2016-07-08 06:51] LABS: CALCIUM 8.7 mg/dl (8.4-10.2)
[2016-07-08 07:16] LABS: CONDITION 1; LH ANALYZER COMMENTS 1
[2016-07-08] MEDS: CLOPIDOGREL 75 MG TAB PO SCH (08:25)
[2016-07-08] MEDS: ASPIRIN 81 MG TAB PO SCH (08:25)
[2016-07-08] MEDS: RANOLAZINE (SR) 500 MG TAB PO SCH ×2 (08:26→21:56)
[2016-07-08] MEDS: FISH OIL 1,000 MG CAP PO SCH ×2 (08:26→21:56)
[2016-07-08] MEDS: FAMOTIDINE 20 MG TAB PO SCH ×2 (08:26→21:55)
[2016-07-08] MEDS: ISOSORBIDE DINITRATE 20 MG TAB PO SCH ×3 (08:27→21:56)
[2016-07-08] MEDS: INSULIN ASPART [NOVOLOG] 3 ML PEN SC SCH ×7 (08:31→22:02)
[2016-07-08] MEDS: HEPARIN 5,000 UNIT/0.5 ML SYG SC SCH ×2 (08:33→21:58)
[2016-07-08] MEDS ORDERED: predniSONE 20 MG TAB PO SCH (09:00)
[2016-07-08] MEDS: HYDROmorphONE 1 MG/ML SYG IV PRN ×3 (10:15→21:58)
--- NOTE | 2016-07-08 11:39 | PN ---
Date/Time of Note Date/Time of Note DATE: 07/08/16 TIME: 11:35 Assessment/Plan VTE Prophylaxis VTE Prophylaxis Intervention: heparin Lines/Catheters IV [facility] Peripheral IV Urinary Cath still in place: No Assessment/Plan Chief Complaint/Hosp Course 1. Right upper lobe Pneumonia, likely community-acquired vs other. Sputum CS with staph aureus. cont on abx 2.Possible COPD exacerbation with bronchospasm. Improved. continue on bronchodilators. taper steroid. titrate o2 as tolerated 3. Sepsis secondary to pneumonia: Resolving. Will monitor. cont abx 4. Acute kidney injury on chronic kidney disease. SHERYL likely secondary to sepsis vs diuretic induced. monitor renal panel. follow up with nephrology recs 5. Hyperkalemia. Stable at present. We'll monitor and replete as needed 6. Hyponatremia. Resolved. 7. Essential hypertension: Stable. 8. Coronary artery disease, status post multiple PCI. cont on antiplatelet therapy and statin 9. Congestive heart failure with systolic dysfunction, known ejection fraction of 45%. cont optimization with cardiovascular medications 10. Hyperglycemia with Type 2 diabetes. A1C 9.8: non compliance. continue on insulin regimen. Adjust as needed. 11. Dyslipidemia. continue on fish oil. statin on hold due to transaminitis 12. Hepatomegaly with Transaminase elevation-likely concurrent illness. Monitor . Avoid hepatotoxins 13. Obesity. Weight reduction advised 14.Hx of Nicotine abuse. Cigarette smoking cessation advised. DVT prophylaxis: Heparin PUD prophylaxis: Pepcid PLAN: Continue with physical therapy. Await clinical improvement of respiratory status. Still with reported shortness of breath. We'll check follow-up chest x- ray. We'll order for oxygen for home O2 Discussed plan of care with Dr. Kc Problems: Subjective 24 Hr Interval Summary Free Text/Dictation Reports worse breathing today Exam/Review of Systems Vital Signs Vitals Vital Signs Date Time Temp Pulse Resp B/P Pulse Ox O2 Delivery O2 Flow Rate FiO2 07/08/16 09:07 79 22 94 Nasal Cannula 2.0 07/08/16 07:57 98.0 177/66 07/04/16 21:34 40 Intake and Output 07/07/16 07/07/16 07/08/16 15:00 23:00 07:00 Intake Total 720 ml 500 ml Output Total 1900 ml 650 ml Balance -1180 ml -150 ml Exam General: Slightly somnolent. Reports some shortness of breath Eyes: pupils equal round, Anicteric sclera Neck: Supple nontender, no JVD Cardiac: S1, S2 auscultated, regular rhythm and rate Pulmonary: Diminished lung sounds bilaterally GI: Abdomen soft nontender nondistended, bowel sounds active Extremities: No edema bilateral lower extremities Skin: Clean dry and intact Neurologic: Alert to person place and time and situation Results Result Diagram: 07/08/16 0507/08/16 0525 Results 24 hrs Laboratory Tests Test 07/07/16 15:55 07/07/16 16:58 07/07/16 20:59 07/08/16 01:44 Vancomycin Level Trough 14.7 Bedside Glucose 136 201 275 H Test 07/08/16 05:25 07/08/16 08:15 Anion Gap 16 Basophils # 0.0 Basophils % 0.0 Blood Morphology Comment Blood Urea Nitrogen 60 H Calcium Level 8.7 Carbon Dioxide Level 27 Chloride Level 105 Creatinine 1.78 H Eosinophils # 0.0 Eosinophils % 0.0 Glucose Level 295 H Hematocrit 43.4 Hemoglobin 14.1 Lymphocytes # 1.2 Lymphocytes % 10.8 L Mean Corpuscular Hemoglobin 26.0 L Mean Corpuscular Hemoglobin Concent 32.6 Mean Corpuscular Volume 79.7 L Mean Platelet Volume 9.6 Monocytes # 0.8 Monocytes % 6.7 Neutrophils # 9.4 H Neutrophils % 82.5 H Nucleated Red Blood Cells # 0.0 Nucleated Red Blood Cells % 0.0 Platelet Count 248 Potassium Level 4.4 Red Blood Count 5.44 Red Cell Distribution Width 17.5 H Sodium Level 144 White Blood Count 11.4 #H Bedside Glucose 241 H Medications Medications Current Medications Aspirin (Aspirin) 81 mg DAILY PO Last administered on 07/08/16at 08:25; Admin Dose 81 MG; Start 07/03/16 at 09:00 Carvedilol (Coreg) 6.25 mg BID PO Last administered on 07/08/16at 08:28; Admin Dose 6.25 MG; Start 07/02/16 at 21:00 Clopidogrel Bisulfate (plaVIX) 75 mg DAILY PO Last administered on 07/08/16 08:25; Admin Dose 75 MG; Start 07/03/16 at 09:00 Hydralazine HCl (Apresoline) 10 mg Q8 PO Last administered on 07/08/16at 06:13 ; Admin Dose 10 MG; Start 07/02/16 at 14:00 Isosorbide Dinitrate (Isordil) 20 mg TID PO Last administered on 07/08/16 08: 27; Admin Dose 20 MG; Start 07/02/16 at 13:00 Ranolazine (Ranexa) 1,000 mg Q12 PO Last administered on 07/08/16 08:26; Admin Dose 1,000 MG; Start 07/02/16 at 21:00 Atorvastatin Calcium (Lipitor) 80 mg HS PO Last administered on 07/03/16 21: 21; Admin Dose 80 MG; Start 07/02/16 at 21:00; Status Future Hold Ondansetron HCl (Zofran Inj) 4 mg Q6H PRN IV NAUSEA AND/OR VOMITING Last administered on 07/03/16at 12:46; Admin Dose 4 MG; Start 07/02/16 at 11:30 Acetaminophen (Tylenol Tab) 650 mg Q6H PRN PO PAIN LEVEL 1-3 OR FEVER Last administered on 07/05/16at 21:52; Admin Dose 650 MG; Start 07/02/16 at 11:30 Acetaminophen (Tylenol Supp) 650 mg Q6H PRN SC PAIN LEVEL 1-3 OR FEVER; Start 07/02/16 at 11:30 Acetaminophen/ Hydrocodone Bitart ([place] (5/325)) 1 tab Q6H PRN PO MODERATE PAIN LEVEL 4-6 Last administered on 07/07/16at 09:11; Admin Dose 1 TAB; Start 07/02/16 at 11:30 Docusate Sodium (Colace) 100 mg Q12H PRN PO CONSTIPATION; Start 07/02/16 at 11 :30 Famotidine (Pepcid) 20 mg Q12 PO Last administered on 07/08/16 08:26; Admin Dose 20 MG; Start 07/02/16 at 21:00 Heparin Sodium (Porcine) (Heparin (5000 Units/0.5 ml)) 5,000 unit Q12 SC Last administered on 07/08/16 08:33; Admin Dose 5,000 UNIT; Start 07/02/16 at 21: 00 Miscellaneous Information 1 ea NOTE XX ; Start 07/02/16 at 12:00 Glucose (Glutose) 15 gm Q15M PRN PO DECREASED GLUCOSE; Start 07/02/16 at 12:00 Glucose (Glutose) 22.5 gm Q15M PRN PO DECREASED GLUCOSE; Start 07/02/16 at 12: 00 Dextrose (D50w Syringe) 25 ml Q15M PRN IV DECREASED GLUCOSE; Start 07/02/16 at 12:00 Dextrose (D50w Syringe) 50 ml Q15M PRN IV DECREASED GLUCOSE; Start 07/02/16 at 12:00 Glucagon (Glucagen) 1 mg Q15M PRN IM DECREASED GLUCOSE; Start 07/02/16 at 12: 00 Glucose (Glutose) 15 gm Q15M PRN BUCCAL DECREASED GLUCOSE; Start 07/02/16 at 12:00 Hydralazine HCl 10 mg 10 mg Q6H PRN IV SBP>160; Start 07/02/16 at 15:00 Sodium Chloride 1,000 ml @ 40 mls/hr Q24H IV Last administered on 07/07/16at 12:04; Admin Dose 40 MLS/HR; Start 07/02/16 at 15:00 Azithromycin 250 ml @ 250 mls/hr Q24H IVPB Last administered on 07/07/16at 17: 17; Admin Dose 250 MLS/HR; Start 07/04/16 at 17:00 Ceftriaxone Sodium (Rocephin) 50 ml @ 100 mls/hr Q24H IVPB Last administered on 07/07/16at 16:16; Admin Dose 100 MLS/HR; Start 07/04/16 at 16:00 Fish Oil (Fish Oil) 1,000 mg BID PO Last administered on 07/08/16at 08:26; Admin Dose 1,000 MG; Start 07/04/16 at 21:00 Insulin Glargine (Lantus) 40 unit HS SC Last administered on 07/07/16at 21:19; Admin Dose 40 UNIT; Start 07/05/16 at 21:00 Lorazepam (Ativan) 1 mg Q6H PRN IV anxiety; Start 07/05/16 at 14:00 Zolpidem Tartrate (Ambien) 5 mg HS PRN PO INSOMNIA; Start 07/05/16 at 14:00 Lorazepam 1 mg 1 mg Q6H PRN IM anxiety; Start 07/05/16 at 15:00 Vancomycin HCl/ Sodium Chloride (Vancocin/NS) 250 ml @ 83.333 mls/ hr Q24H IVPB Last administered on 07/07/16at 17:17; Admin Dose 83.333 MLS/HR; Start at 17:00 Alprazolam (Xanax) 1 mg TID PRN PO ANXIETY Last administered on 07/05/16at 21: 52; Admin Dose 1 MG; Start 07/05/16 at 21:00 Diagnostic Test (Pha) (Accucheck) 1 ea 02 XX Last administered on 07/08/16 01 :59; Admin Dose 1 EA; Start 07/08/16 at 02:00 Hydromorphone HCl (Dilaudid) 0.5 mg Q4H PRN IV PAIN Last administered on 10:15; Admin Dose 0.5 MG; Start 07/07/16 at 13:00 Oxycodone/ Acetaminophen (Percocet (5/ 325)) 1 tab Q4H PRN PO PAIN Last administered on 07/07/16at 21:25; Admin Dose 1 TAB; Start 07/07/16 at 13:00 JESE CMCOY Jul 08, 2016 11:39
--- NOTE | 2016-07-08 11:53 | CONS ---
Date/Time of Note Date/Time of Note DATE: 07/08/16 TIME: 11:51 Assessment/Plan Assessment/Plan Additional Assessment/Plan 1. SHERYL on CKD III due to sepsis 2. sepsis due to Pneumonia 3. RUL PNA 4. Possible COPD exacerbation 5. hyperglycemia Plan: Cr 1.78-improved much better need better BS control Change solumedrol to PO prednisone will follow up Consultation Date/Type/Reason Admit Date/Time Jul 02, 2016 at 09:58 Type of Consultation: NEPHROLOGY Referring Provider: NARENDRA CHAWLA MD Exam/Review of Systems Vital Signs Vitals Vital Signs Date Time Temp Pulse Resp B/P Pulse Ox O2 Delivery O2 Flow Rate FiO2 07/08/16 09:07 79 22 94 Nasal Cannula 2.0 07/08/16 07:57 98.0 177/66 07/04/16 21:34 40 Intake and Output 07/07/16 07/07/16 07/08/16 15:00 23:00 07:00 Intake Total 720 ml 500 ml Output Total 1900 ml 650 ml Balance -1180 ml -150 ml Exam Constitutional: alert Psych: no complaints Head: normocephalic Neck: supple Respiratory: clear to auscultation Cardiovascular: regular rate and rhythm Gastrointestinal: soft Results Result Diagram: 07/08/16 0525 07/08/16 0525 Results 24 hrs Laboratory Tests Test 07/07/16 15:55 07/07/16 16:58 07/07/16 20:59 07/08/16 01:44 Vancomycin Level Trough 14.7 Bedside Glucose 136 201 275 H Test 07/08/16 05:25 07/08/16 08:15 Anion Gap 16 Basophils # 0.0 Basophils % 0.0 Blood Morphology Comment Blood Urea Nitrogen 60 H Calcium Level 8.7 Carbon Dioxide Level 27 Chloride Level 105 Creatinine 1.78 H Eosinophils # 0.0 Eosinophils % 0.0 Glucose Level 295 H Hematocrit 43.4 Hemoglobin 14.1 Lymphocytes # 1.2 Lymphocytes % 10.8 L Mean Corpuscular Hemoglobin 26.0 L Mean Corpuscular Hemoglobin Concent 32.6 Mean Corpuscular Volume 79.7 L Mean Platelet Volume 9.6 Monocytes # 0.8 Monocytes % 6.7 Neutrophils # 9.4 H Neutrophils % 82.5 H Nucleated Red Blood Cells # 0.0 Nucleated Red Blood Cells % 0.0 Platelet Count 248 Potassium Level 4.4 Red Blood Count 5.44 Red Cell Distribution Width 17.5 H Sodium Level 144 White Blood Count 11.4 #H Bedside Glucose 241 H Medications Medications Current Medications Aspirin (Aspirin) 81 mg DAILY PO Last administered on 07/08/16 08:25; Admin Dose 81 MG; Start 07/03/16 at 09:00 Carvedilol (Coreg) 6.25 mg BID PO Last administered on 07/08/16 08:28; Admin Dose 6.25 MG; Start 07/02/16 at 21:00 Clopidogrel Bisulfate (plaVIX) 75 mg DAILY PO Last administered on 07/08/16 08:25; Admin Dose 75 MG; Start 07/03/16 at 09:00 Hydralazine HCl (Apresoline) 10 mg Q8 PO Last administered on 07/08/16 06:13 ; Admin Dose 10 MG; Start 07/02/16 at 14:00 Isosorbide Dinitrate (Isordil) 20 mg TID PO Last administered on 07/08/16 08: 27; Admin Dose 20 MG; Start 07/02/16 at 13:00 Ranolazine (Ranexa) 1,000 mg Q12 PO Last administered on 07/08/16 08:26; Admin Dose 1,000 MG; Start 07/02/16 at 21:00 Atorvastatin Calcium (Lipitor) 80 mg HS PO Last administered on 07/03/16 21: 21; Admin Dose 80 MG; Start 07/02/16 at 21:00; Status Future Hold Ondansetron HCl (Zofran Inj) 4 mg Q6H PRN IV NAUSEA AND/OR VOMITING Last administered on 07/03/16 12:46; Admin Dose 4 MG; Start 07/02/16 at 11:30 Acetaminophen (Tylenol Tab) 650 mg Q6H PRN PO PAIN LEVEL 1-3 OR FEVER Last administered on 07/05/16 21:52; Admin Dose 650 MG; Start 07/02/16 at 11:30 Acetaminophen (Tylenol Supp) 650 mg Q6H PRN [place] PAIN LEVEL 1-3 OR FEVER; Start 07/02/16 at 11:30 Acetaminophen/ Hydrocodone Bitart ([place] (5/325)) 1 tab Q6H PRN PO MODERATE PAIN LEVEL 4-6 Last administered on 12/24/16at 09:11; Admin Dose 1 TAB; Start 07/02/16 at 11:30 Docusate Sodium (Colace) 100 mg Q12H PRN PO CONSTIPATION; Start 07/02/16 at 11 :30 Famotidine (Pepcid) 20 mg Q12 PO Last administered on 07/08/16at 08:26; Admin Dose 20 MG; Start 07/02/16 at 21:00 Heparin Sodium (Porcine) (Heparin (5000 Units/0.5 ml)) 5,000 unit Q12 SC Last administered on 07/08/16at 08:33; Admin Dose 5,000 UNIT; Start 07/02/16 at 21: 00 Miscellaneous Information 1 ea NOTE XX ; Start 07/02/16 at 12:00 Glucose (Glutose) 15 gm Q15M PRN PO DECREASED GLUCOSE; Start 07/02/16 at 12:00 Glucose (Glutose) 22.5 gm Q15M PRN PO DECREASED GLUCOSE; Start 07/02/16 at 12: 00 Dextrose (D50w Syringe) 25 ml Q15M PRN IV DECREASED GLUCOSE; Start 07/02/16 at 12:00 Dextrose (D50w Syringe) 50 ml Q15M PRN IV DECREASED GLUCOSE; Start 07/02/16 at 12:00 Glucagon (Glucagen) 1 mg Q15M PRN IM DECREASED GLUCOSE; Start 07/02/16 at 12: 00 Glucose (Glutose) 15 gm Q15M PRN BUCCAL DECREASED GLUCOSE; Start 07/02/16 at 12:00 Hydralazine HCl 10 mg 10 mg Q6H PRN IV SBP>160; Start 07/02/16 at 15:00 Sodium Chloride 1,000 ml @ 40 mls/hr Q24H IV Last administered on 07/07/16at 12:04; Admin Dose 40 MLS/HR; Start 07/02/16 at 15:00 Azithromycin 250 ml @ 250 mls/hr Q24H IVPB Last administered on 07/07/16at 17: 17; Admin Dose 250 MLS/HR; Start 07/04/16 at 17:00 Ceftriaxone Sodium (Rocephin) 50 ml @ 100 mls/hr Q24H IVPB Last administered on 07/07/16at 16:16; Admin Dose 100 MLS/HR; Start 07/04/16 at 16:00 Fish Oil (Fish Oil) 1,000 mg BID PO Last administered on 07/08/16 08:26; Admin Dose 1,000 MG; Start 07/04/16 at 21:00 Insulin Glargine (Lantus) 40 unit HS SC Last administered on 07/07/16at 21:19; Admin Dose 40 UNIT; Start 07/05/16 at 21:00 Lorazepam (Ativan) 1 mg Q6H PRN IV anxiety; Start 07/05/16 at 14:00 Zolpidem Tartrate (Ambien) 5 mg HS PRN PO INSOMNIA; Start 07/05/16 at 14:00 Lorazepam 1 mg 1 mg Q6H PRN IM anxiety; Start 07/05/16 at 15:00 Vancomycin HCl/ Sodium Chloride (Vancocin/NS) 250 ml @ 83.333 mls/ hr Q24H IVPB Last administered on 07/07/16 17:17; Admin Dose 83.333 MLS/HR; Start at 17:00 Alprazolam (Xanax) 1 mg TID PRN PO ANXIETY Last administered on 07/05/16at 21: 52; Admin Dose 1 MG; Start 07/05/16 at 21:00 Diagnostic Test (Pha) (Accucheck) 1 ea 02 XX Last administered on 07/08/16 01 :59; Admin Dose 1 EA; Start 07/08/16 at 02:00 Hydromorphone HCl (Dilaudid) 0.5 mg Q4H PRN IV PAIN Last administered on 10:15; Admin Dose 0.5 MG; Start 07/07/16 at 13:00 Oxycodone/ Acetaminophen (Percocet (5/ 325)) 1 tab Q4H PRN PO PAIN Last administered on 07/07/16 21:25; Admin Dose 1 TAB; Start 07/07/16 at 13:00 ANDREW BOWLING MD Jul 08, 2016 11:52
--- NOTE | 2016-07-08 12:57 | RADRPT ---
PROCEDURE: XR Chest. CLINICAL INDICATION: Shortness of breath. TECHNIQUE: Single frontal view. COMPARISON: 07/05/2016. FINDINGS: There is consolidation in the right upper lobe, slightly improved. Mild pulmonary edema is unchange d. The lungs are otherwise clear. The heart is mildly enlarged. There is no pleural effusion. There is no pneumothorax. IMPRESSION: 1. Slightly improved right upper lobe pneumonia. 2. Mild pulmonary edema and cardiomegaly, unchanged. RPTAT: QQ .Jimmy Carpenter MD, MD Date Time Electronically viewed and signed by .Jimmy Carpenter MD, MD on 07/08/2016 12:57 .R/
[2016-07-08 14:11] LABS: AADO2 Arterial 23.7 mmHg (7.0-24.0); Allen Test ACCEPTAB; Arterial Base Excess 1.5 mmol/L (-3.0-3); Arterial COHb 0.7 % (0.0-3.0); Arterial Fraction of Oxyhgb 92.9 % (93.0-99.0); Arterial HCO3 27.4 mmol/L (22.0-26.0); Arterial MetHb 0.2 % (0.0-1.5); Arterial Total Hemglobin 15.5 g/dl (12.0-18.0); MODE ROOM AIR
[2016-07-08] MEDS: SOD CHLORIDE 0.9% 1,000 ML IV SCH (15:00)
[2016-07-08] MEDS: CEFTRIAXONE 1 GM/50 ML (PMX) 50 ML IVPB SCH (16:37)
[2016-07-08] MEDS: AZITHROMYCIN 500MG/NS (PMX) 250 ML IVPB SCH (17:31)
[2016-07-08] MEDS: VANCOMYCIN 1.25 GM in SOD CHLORIDE 0.9% 250 ML IVPB SCH (18:30)
[2016-07-08] MEDS: INSULIN GLARGINE [LANtus] 3 ML PEN SC SCH (21:59)
[2016-07-09] VITALS (12 sets, daily range): BP systolic 136–179; BP diastolic 68–96; PULSE 74–85; RESP 18–21
[2016-07-09] MEDS: ALBUTEROL/IPRATROPIUM (NEB) 3 ML AMP HHN SCH ×6 (00:51→20:00)
[2016-07-09] MEDS: ACCUCHECK XX SCH (02:57)
[2016-07-09] MEDS: HYDROmorphONE 1 MG/ML SYG IV PRN ×3 (04:26→20:40)
[2016-07-09 06:36] LABS: BASOPHILS % 0.1 % (0.0-2.0); EOSINOPHILS % 0.3 % (0.0-7.0); HEMATOCRIT 41.6 % (42.0-52.0); HEMOGLOBIN 13.8 g/dl (14.0-18.0); LYMPHOCYTES # 1.7 10^3/ul (0.8-2.9); MEAN CORPUSCULAR HEMOGLOBIN 26.2 pg (29.0-33.0); MEAN CORPUSCULAR HGB CONC 33.3 g/dl (32.0-37.0); MEAN CORPUSCULAR VOLUME 78.9 fl (82.0-101.0); MEAN PLATELET VOLUME 8.7 fl (7.4-10.4); MONOCYTE # 0.3 10^3/ul (0.3-0.9); MONOCYTES % 2.9 % (0.0-11.0); NEUTROPHIL # 7.2 10^3/ul (1.6-7.5); NEUTROPHILS % 78.7 % (39.0-77.0); PLATELET COUNT 268 10^3/UL (140-440); RED BLOOD COUNT 5.26 10^6/ul (4.70-6.10); RED CELL DISTRIBUTION WIDTH 17.8 % (11.5-14.5); UNCORRECTED WBC 9.2 10^3/ul (4.8-10.8); WHITE BLOOD COUNT 9.2 10^3/ul (4.8-10.8)
[2016-07-09 06:42] LABS: CONDITION 1; LH ANALYZER COMMENTS 1
[2016-07-09 06:48] LABS: POTASSIUM 4.1 mmol/L (3.5-5.1)
[2016-07-09 06:51] LABS: CREATININE 1.57 mg/dl (0.61-1.24)
[2016-07-09 06:52] LABS: CALCIUM 8.6 mg/dl (8.4-10.2)
[2016-07-09] MEDS: INSULIN ASPART [NOVOLOG] 3 ML PEN SC SCH ×7 (07:26→20:35)
[2016-07-09] MEDS: FAMOTIDINE 20 MG TAB PO SCH ×2 (08:17→20:32)
[2016-07-09] MEDS: RANOLAZINE (SR) 500 MG TAB PO SCH ×2 (08:17→20:31)
[2016-07-09] MEDS: CLOPIDOGREL 75 MG TAB PO SCH (08:17)
[2016-07-09] MEDS: ASPIRIN 81 MG TAB PO SCH (08:17)
[2016-07-09] MEDS: ISOSORBIDE DINITRATE 20 MG TAB PO SCH ×3 (08:17→20:32)
[2016-07-09] MEDS: FISH OIL 1,000 MG CAP PO SCH ×2 (08:18→20:31)
[2016-07-09] MEDS: OXYCODONE/ACETAMINOPHEN (5/325) TAB PO PRN (08:18)
[2016-07-09] MEDS: HEPARIN 5,000 UNIT/0.5 ML SYG SC SCH ×2 (08:20→20:33)
[2016-07-09] MEDS: SOD CHLORIDE 0.9% 1,000 ML IV SCH (15:40)
--- NOTE | 2016-07-09 15:41 | CONS ---
Date/Time of Note Date/Time of Note DATE: 07/09/16 TIME: 15:40 Assessment/Plan Assessment/Plan Chief Complaint/Hosp Course IMPRESSION: 1. The patient has pneumonia. 2. jovani w ckd 3. Underlying chronic kidney disease. 4. Diabetes mellitus. 5. Hypertension. 6. Anemia. 7. EDEMA 8. Obesity. 9. Dyslipidemia. plan f/u bmp LASIX Problems: Consultation Date/Type/Reason Admit Date/Time Jul 02, 2016 at 09:58 Type of Consultation: NEPHROLOGY Referring Provider: NARENDRA CHAWLA MD Exam/Review of Systems Vital Signs Vitals Vital Signs Date Time Temp Pulse Resp B/P Pulse Ox O2 Delivery O2 Flow Rate FiO2 07/09/16 15:37 98.4 81 18 154/70 96 07/09/16 11:16 Nasal Cannula 4.0 Intake and Output 07/08/16 07/08/16 07/09/16 15:00 23:00 07:00 Intake Total 550 ml Output Total 450 ml 850 ml Balance -450 ml -300 ml Exam Respiratory: diminished breath sounds Cardiovascular: regular rate and rhythm Gastrointestinal: bowel sounds (+), soft Extremities: edema (++) Results Result Diagram: 07/09/16 0550 07/09/16 0550 Results 24 hrs Laboratory Tests Test 07/08/16 16:50 07/08/16 18:08 07/08/16 22:00 07/09/16 02:51 Bedside Glucose 68 L 113 226 H 137 Test 07/09/16 05:50 07/09/16 07:24 07/09/16 12:30 Anion Gap 13 Basophils # 0.0 Basophils % 0.1 Blood Morphology Comment Blood Urea Nitrogen 48 #H Calcium Level 8.6 Carbon Dioxide Level 31 Chloride Level 109 Creatinine 1.57 H Eosinophils # 0.0 Eosinophils % 0.3 Glucose Level 117 # Hematocrit 41.6 L Hemoglobin 13.8 L Lymphocytes # 1.7 Lymphocytes % 18.0 Mean Corpuscular Hemoglobin 26.2 L Mean Corpuscular Hemoglobin Concent 33.3 Mean Corpuscular Volume 78.9 L Mean Platelet Volume 8.7 Monocytes # 0.3 Monocytes % 2.9 Neutrophils # 7.2 Neutrophils % 78.7 H Nucleated Red Blood Cells # 0.0 Nucleated Red Blood Cells % 0.0 Platelet Count 268 Potassium Level 4.1 Red Blood Count 5.26 Red Cell Distribution Width 17.8 H Sodium Level 149 H White Blood Count 9.2 Bedside Glucose 129 85 Medications Medications Current Medications Aspirin (Aspirin) 81 mg DAILY PO Last administered on 07/09/16 08:17; Admin Dose 81 MG; Start 07/03/16 at 09:00 Carvedilol (Coreg) 6.25 mg BID PO Last administered on 07/09/16 08:18; Admin Dose 6.25 MG; Start 07/02/16 at 21:00 Clopidogrel Bisulfate (plaVIX) 75 mg DAILY PO Last administered on 07/09/16 08:17; Admin Dose 75 MG; Start 07/03/16 at 09:00 Hydralazine HCl (Apresoline) 10 mg Q8 PO Last administered on 07/09/16 13:40 ; Admin Dose 10 MG; Start 07/02/16 at 14:00 Isosorbide Dinitrate (Isordil) 20 mg TID PO Last administered on 07/09/16 12: 36; Admin Dose 20 MG; Start 07/02/16 at 13:00 Ranolazine (Ranexa) 1,000 mg Q12 PO Last administered on 07/09/16 08:17; Admin Dose 1,000 MG; Start 07/02/16 at 21:00 Atorvastatin Calcium (Lipitor) 80 mg HS PO Last administered on 07/03/16 21: 21; Admin Dose 80 MG; Start 07/02/16 at 21:00; Status Future Hold Ondansetron HCl (Zofran Inj) 4 mg Q6H PRN IV NAUSEA AND/OR VOMITING Last administered on 07/03/16 12:46; Admin Dose 4 MG; Start 07/02/16 at 11:30 Acetaminophen (Tylenol Tab) 650 mg Q6H PRN PO PAIN LEVEL 1-3 OR FEVER Last administered on 07/05/16 21:52; Admin Dose 650 MG; Start 07/02/16 at 11:30 Acetaminophen (Tylenol Supp) 650 mg Q6H PRN NM PAIN LEVEL 1-3 OR FEVER; Start 07/02/16 at 11:30 Acetaminophen/ Hydrocodone Bitart ([place] (5/325)) 1 tab Q6H PRN PO MODERATE PAIN LEVEL 4-6 Last administered on 07/07/16 09:11; Admin Dose 1 TAB; Start 07/02/16 at 11:30 Docusate Sodium (Colace) 100 mg Q12H PRN PO CONSTIPATION; Start 07/02/16 at 11 :30 Famotidine (Pepcid) 20 mg Q12 PO Last administered on 07/09/16at 08:17; Admin Dose 20 MG; Start 07/02/16 at 21:00 Heparin Sodium (Porcine) (Heparin (5000 Units/0.5 ml)) 5,000 unit Q12 SC Last administered on 07/09/16at 08:20; Admin Dose 5,000 UNIT; Start 07/02/16 at 21: 00 Miscellaneous Information 1 ea NOTE XX ; Start 07/02/16 at 12:00 Glucose (Glutose) 15 gm Q15M PRN PO DECREASED GLUCOSE; Start 07/02/16 at 12:00 Glucose (Glutose) 22.5 gm Q15M PRN PO DECREASED GLUCOSE; Start 07/02/16 at 12: 00 Dextrose (D50w Syringe) 25 ml Q15M PRN IV DECREASED GLUCOSE; Start 07/02/16 at 12:00 Dextrose (D50w Syringe) 50 ml Q15M PRN IV DECREASED GLUCOSE; Start 07/02/16 at 12:00 Glucagon (Glucagen) 1 mg Q15M PRN IM DECREASED GLUCOSE; Start 07/02/16 at 12: 00 Glucose (Glutose) 15 gm Q15M PRN BUCCAL DECREASED GLUCOSE; Start 07/02/16 at 12:00 Hydralazine HCl 10 mg 10 mg Q6H PRN IV SBP>160; Start 07/02/16 at 15:00 Sodium Chloride 1,000 ml @ 40 mls/hr Q24H IV Last administered on 07/07/16at 12:04; Admin Dose 40 MLS/HR; Start 07/02/16 at 15:00 Azithromycin 250 ml @ 250 mls/hr Q24H IVPB Last administered on 07/08/16at 17: 31; Admin Dose 250 MLS/HR; Start 07/04/16 at 17:00 Ceftriaxone Sodium (Rocephin) 50 ml @ 100 mls/hr Q24H IVPB Last administered on 07/08/16at 16:37; Admin Dose 100 MLS/HR; Start 07/04/16 at 16:00 Fish Oil (Fish Oil) 1,000 mg BID PO Last administered on 07/09/16 08:18; Admin Dose 1,000 MG; Start 07/04/16 at 21:00 Insulin Glargine (Lantus) 40 unit HS SC Last administered on 07/08/16at 21:59; Admin Dose 40 UNIT; Start 07/05/16 at 21:00 Lorazepam (Ativan) 1 mg Q6H PRN IV anxiety; Start 07/05/16 at 14:00 Zolpidem Tartrate (Ambien) 5 mg HS PRN PO INSOMNIA; Start 07/05/16 at 14:00 Lorazepam 1 mg 1 mg Q6H PRN IM anxiety; Start 07/05/16 at 15:00 Vancomycin HCl/ Sodium Chloride (Vancocin/NS) 250 ml @ 83.333 mls/ hr Q24H IVPB Last administered on 07/08/16 18:30; Admin Dose 83.333 MLS/HR; Start at 17:00 Alprazolam (Xanax) 1 mg TID PRN PO ANXIETY Last administered on 07/05/16 21: 52; Admin Dose 1 MG; Start 07/05/16 at 21:00 Diagnostic Test (Pha) (Accucheck) 1 ea 02 XX Last administered on 07/09/16 02 :57; Admin Dose 1 EA; Start 07/08/16 at 02:00 Hydromorphone HCl (Dilaudid) 0.5 mg Q4H PRN IV PAIN Last administered on 13:41; Admin Dose 0.5 MG; Start 07/07/16 at 13:00 Oxycodone/ Acetaminophen (Percocet (5/ 325)) 1 tab Q4H PRN PO PAIN Last administered on 07/09/16 08:18; Admin Dose 1 TAB; Start 07/07/16 at 13:00 ROBB ALBERT MD Jul 09, 2016 15:41
[2016-07-09] MEDS: CEFTRIAXONE 1 GM/50 ML (PMX) 50 ML IVPB SCH (15:42)
[2016-07-09] MEDS: VANCOMYCIN 1.25 GM in SOD CHLORIDE 0.9% 250 ML IVPB SCH (17:08)
--- NOTE | 2016-07-09 17:10 | PN ---
Date/Time of Note Date/Time of Note DATE: 07/09/16 TIME: 17:08 Assessment/Plan VTE Prophylaxis VTE Prophylaxis Intervention: heparin Lines/Catheters IV [facility] Peripheral IV Urinary Cath still in place: No Assessment/Plan Chief Complaint/Hosp Course 1. Right upper lobe Pneumonia, likely community-acquired vs other. Sputum CS with staph aureus. ->Continue Rocephin/Zithromax/Vancomycin.F/u urine legionella antigen. 2. COPD exacerbation with bronchospasm. Improved. ->.Pulmonary on board.Continue bronchodilators. S/P steroids. 3. Sepsis secondary to pneumonia: Resolving. Will monitor. 4. Acute kidney injury on chronic kidney disease. SHERYL likely secondary to sepsis vs diuretic induced. Creatinine trending up. -> Nephrology on board. Monitor renal function closely and avoid nephrotoxins as much as possible. 5. Essential hypertension: Stable. On Isordil / hydralazine / Coreg. 6. Ischemic cardiomyopathy. Continue BBs. Unable to use ACEIs because of worsening renal function. 7. Coronary artery disease, status post multiple percutaneous coronary interventions: On ASA/ Plavix/ Statin / BB / hydralazine/nitrates. 8. Congestive heart failure exacerbation. Acute on chronic. Systolic dysfunction. . Continue medical management with Coreg, Imdur, and aspirin. Diuretics as per nephrology. 9. Hyperglycemia with Type 2 diabetes. A1C 9.8: non compliance Continue accu checks, ISS, pre-meals and Lantus to 40 units. 10. Dyslipidemia. Hold Lipitor due to liver fxn. Continue Fish oil. May need to change to low dose Zocor up on DC with LFT monitoring. 11. Hepatomegaly with Transaminase elevation-likely concurrent illness. Monitor closely. Avoid hepatotoxins as much as possible. 12. Obesity. Weight reduction advised 13. Hx of Nicotine abuse. Patient denied this before and now says he was a smoker. DVT prophylaxis: Heparin PUD prophylaxis: Pepcid PLAN:Continue current medical management.F/u with nephrology recs on trending up creatinine. F/u pulmonary recs. Continue with PT eval/rx. Case discussed with . Problems: Subjective 24 Hr Interval Summary Free Text/Dictation "Not feeling well." Exam/Review of Systems Vital Signs Vitals Vital Signs Date Time Temp Pulse Resp B/P Pulse Ox O2 Delivery O2 Flow Rate FiO2 07/09/16 16:52 2.0 07/09/16 16:05 81 07/09/16 15:37 98.4 18 154/70 96 07/09/16 11:16 Nasal Cannula Intake and Output 07/08/16 07/08/16 07/09/16 15:00 23:00 07:00 Intake Total 550 ml Output Total 450 ml 850 ml Balance -450 ml -300 ml Exam General: Morbidly obese build 55 year-old male lying in bed in mild respiratory distress. HEENT: Normocephalic, atraumatic. Eyes: Anicteric sclerae, conjunctivae clear. ENT: Nasal septum midline, oral mucosa moist. Neck: Supple, no JVD noticed. Respiratory: Bilaterally diminished breath sounds. No use of accessory muscles of respiration. Expiratory wheezing. Cardiovascular: S1, S2 heard. No murmurs or gallops. Abdomen: Soft, nontender, and protuberant. Bowel sounds positive in all 4 quadrants. Genitourinary: Deferred. Extremities: No cyanosis, no clubbing. Bilateral lower extremity 1+ edema. Peripheral pulses palpable. Right groin cath site with no evidence of hematoma. Neurologic: Cranial nerves II through XII grossly intact. The patient is awake, alert, and oriented. Skin: Normal skin turgor. No skin rashes. Results Result Diagram: 07/09/16 0550 07/09/16 0550 Results 24 hrs Laboratory Tests Test 07/08/16 18:08 07/08/16 22:00 07/09/16 02:51 07/09/16 05:50 Bedside Glucose 113 226 H 137 Anion Gap 13 Basophils # 0.0 Basophils % 0.1 Blood Morphology Comment Blood Urea Nitrogen 48 #H Calcium Level 8.6 Carbon Dioxide Level 31 Chloride Level 109 Creatinine 1.57 H Eosinophils # 0.0 Eosinophils % 0.3 Glucose Level 117 # Hematocrit 41.6 L Hemoglobin 13.8 L Lymphocytes # 1.7 Lymphocytes % 18.0 Mean Corpuscular Hemoglobin 26.2 L Mean Corpuscular Hemoglobin Concent 33.3 Mean Corpuscular Volume 78.9 L Mean Platelet Volume 8.7 Monocytes # 0.3 Monocytes % 2.9 Neutrophils # 7.2 Neutrophils % 78.7 H Nucleated Red Blood Cells # 0.0 Nucleated Red Blood Cells % 0.0 Platelet Count 268 Potassium Level 4.1 Red Blood Count 5.26 Red Cell Distribution Width 17.8 H Sodium Level 149 H White Blood Count 9.2 Test 07/09/16 07:24 07/09/16 12:30 Bedside Glucose 129 85 Medications Medications Current Medications Aspirin (Aspirin) 81 mg DAILY PO Last administered on 07/09/16 08:17; Admin Dose 81 MG; Start 07/03/16 at 09:00 Carvedilol (Coreg) 6.25 mg BID PO Last administered on 07/09/16 08:18; Admin Dose 6.25 MG; Start 07/02/16 at 21:00 Clopidogrel Bisulfate (plaVIX) 75 mg DAILY PO Last administered on 07/09/16 08:17; Admin Dose 75 MG; Start 07/03/16 at 09:00 Hydralazine HCl (Apresoline) 10 mg Q8 PO Last administered on 07/09/16 13:40 ; Admin Dose 10 MG; Start 07/02/16 at 14:00 Isosorbide Dinitrate (Isordil) 20 mg TID PO Last administered on 07/09/16 12: 36; Admin Dose 20 MG; Start 07/02/16 at 13:00 Ranolazine (Ranexa) 1,000 mg Q12 PO Last administered on 07/09/16 08:17; Admin Dose 1,000 MG; Start 07/02/16 at 21:00 Atorvastatin Calcium (Lipitor) 80 mg HS PO Last administered on 07/03/16 21: 21; Admin Dose 80 MG; Start 07/02/16 at 21:00; Status Future Hold Ondansetron HCl (Zofran Inj) 4 mg Q6H PRN IV NAUSEA AND/OR VOMITING Last administered on 07/03/16at 12:46; Admin Dose 4 MG; Start 07/02/16 at 11:30 Acetaminophen (Tylenol Tab) 650 mg Q6H PRN PO PAIN LEVEL 1-3 OR FEVER Last administered on 07/05/16 21:52; Admin Dose 650 MG; Start 07/02/16 at 11:30 Acetaminophen (Tylenol Supp) 650 mg Q6H PRN MD PAIN LEVEL 1-3 OR FEVER; Start 07/02/16 at 11:30 Acetaminophen/ Hydrocodone Bitart ([place] (5/325)) 1 tab Q6H PRN PO MODERATE PAIN LEVEL 4-6 Last administered on 07/07/16at 09:11; Admin Dose 1 TAB; Start 07/02/16 at 11:30 Docusate Sodium (Colace) 100 mg Q12H PRN PO CONSTIPATION; Start 07/02/16 at 11 :30 Famotidine (Pepcid) 20 mg Q12 PO Last administered on 07/09/16at 08:17; Admin Dose 20 MG; Start 07/02/16 at 21:00 Heparin Sodium (Porcine) (Heparin (5000 Units/0.5 ml)) 5,000 unit Q12 SC Last administered on 07/09/16at 08:20; Admin Dose 5,000 UNIT; Start 07/02/16 at 21: 00 Miscellaneous Information 1 ea NOTE XX ; Start 07/02/16 at 12:00 Glucose (Glutose) 15 gm Q15M PRN PO DECREASED GLUCOSE; Start 07/02/16 at 12:00 Glucose (Glutose) 22.5 gm Q15M PRN PO DECREASED GLUCOSE; Start 07/02/16 at 12: 00 Dextrose (D50w Syringe) 25 ml Q15M PRN IV DECREASED GLUCOSE; Start 07/02/16 at 12:00 Dextrose (D50w Syringe) 50 ml Q15M PRN IV DECREASED GLUCOSE; Start 07/02/16 at 12:00 Glucagon (Glucagen) 1 mg Q15M PRN IM DECREASED GLUCOSE; Start 07/02/16 at 12: 00 Glucose (Glutose) 15 gm Q15M PRN BUCCAL DECREASED GLUCOSE; Start 07/02/16 at 12:00 Hydralazine HCl 10 mg 10 mg Q6H PRN IV SBP>160; Start 07/02/16 at 15:00 Sodium Chloride 1,000 ml @ 40 mls/hr Q24H IV Last administered on 07/09/16at 15:40; Admin Dose 40 MLS/HR; Start 07/02/16 at 15:00 Azithromycin 250 ml @ 250 mls/hr Q24H IVPB Last administered on 07/08/16at 17: 31; Admin Dose 250 MLS/HR; Start 07/04/16 at 17:00 Ceftriaxone Sodium (Rocephin) 50 ml @ 100 mls/hr Q24H IVPB Last administered on 07/09/16at 15:42; Admin Dose 100 MLS/HR; Start 07/04/16 at 16:00 Fish Oil (Fish Oil) 1,000 mg BID PO Last administered on 07/09/16at 08:18; Admin Dose 1,000 MG; Start 07/04/16 at 21:00 Insulin Glargine (Lantus) 40 unit HS SC Last administered on 07/08/16at 21:59; Admin Dose 40 UNIT; Start 07/05/16 at 21:00 Lorazepam (Ativan) 1 mg Q6H PRN IV anxiety; Start 07/05/16 at 14:00 Zolpidem Tartrate (Ambien) 5 mg HS PRN PO INSOMNIA; Start 07/05/16 at 14:00 Lorazepam 1 mg 1 mg Q6H PRN IM anxiety; Start 07/05/16 at 15:00 Vancomycin HCl/ Sodium Chloride (Vancocin/NS) 250 ml @ 83.333 mls/ hr Q24H IVPB Last administered on 07/08/16at 18:30; Admin Dose 83.333 MLS/HR; Start at 17:00 Alprazolam (Xanax) 1 mg TID PRN PO ANXIETY Last administered on 07/05/16at 21: 52; Admin Dose 1 MG; Start 07/05/16 at 21:00 Diagnostic Test (Pha) (Accucheck) 1 ea 02 XX Last administered on 07/09/16at 02 :57; Admin Dose 1 EA; Start 07/08/16 at 02:00 Hydromorphone HCl (Dilaudid) 0.5 mg Q4H PRN IV PAIN Last administered on at 13:41; Admin Dose 0.5 MG; Start 07/07/16 at 13:00 Oxycodone/ Acetaminophen (Percocet (5/ 325)) 1 tab Q4H PRN PO PAIN Last administered on 07/09/16at 08:18; Admin Dose 1 TAB; Start 07/07/16 at 13:00 ROMANA DIAZ NP Jul 09, 2016 17:09
[2016-07-09] MEDS: AZITHROMYCIN 500MG/NS (PMX) 250 ML IVPB SCH (17:12)
[2016-07-09] MEDS: FUROSEMIDE 20 MG INJ IV SCH (17:13)
[2016-07-09] MEDS: INSULIN GLARGINE [LANtus] 3 ML PEN SC SCH (20:38)
[2016-07-10] VITALS (12 sets, daily range): BP systolic 144–177; BP diastolic 70–87; PULSE 76–85; RESP 16–21
[2016-07-10] MEDS: ALBUTEROL/IPRATROPIUM (NEB) 3 ML AMP HHN SCH ×6 (00:33→21:00)
[2016-07-10] MEDS: ACCUCHECK XX SCH (02:00)
[2016-07-10] MEDS: HYDROmorphONE 1 MG/ML SYG IV PRN ×3 (03:22→20:35)
[2016-07-10] MEDS: FUROSEMIDE 20 MG INJ IV SCH ×2 (05:55→17:17)
[2016-07-10] MEDS: INSULIN ASPART [NOVOLOG] 3 ML PEN SC SCH ×7 (07:26→20:46)
[2016-07-10 07:30] LABS: BASOPHILS % 0.1 % (0.0-2.0); EOSINOPHILS # 0.1 10^3/ul (0.0-0.5); EOSINOPHILS % 1.4 % (0.0-7.0); HEMATOCRIT 44.6 % (42.0-52.0); HEMOGLOBIN 14.8 g/dl (14.0-18.0); LYMPHOCYTES # 1.6 10^3/ul (0.8-2.9); LYMPHOCYTES % 18.1 % (15.0-51.0); MEAN CORPUSCULAR HEMOGLOBIN 26.2 pg (29.0-33.0); MEAN CORPUSCULAR HGB CONC 33.2 g/dl (32.0-37.0); MEAN PLATELET VOLUME 8.1 fl (7.4-10.4); MONOCYTE # 0.5 10^3/ul (0.3-0.9); MONOCYTES % 6.1 % (0.0-11.0); NEUTROPHIL # 6.7 10^3/ul (1.6-7.5); NEUTROPHILS % 74.3 % (39.0-77.0); PLATELET COUNT 272 10^3/UL (140-440); RED BLOOD COUNT 5.64 10^6/ul (4.70-6.10); RED CELL DISTRIBUTION WIDTH 17.6 % (11.5-14.5)
[2016-07-10 07:38] LABS: PHOSPHORUS 3.7 mg/dl (2.5-4.9)
[2016-07-10 07:39] LABS: MAGNESIUM 1.7 mg/dl (1.7-2.5)
[2016-07-10 07:44] LABS: CONDITION 1; LH ANALYZER COMMENTS 1
[2016-07-10 07:49] LABS: ALBUMIN 2.8 g/dl (3.3-4.9)
[2016-07-10 07:50] LABS: POTASSIUM 3.9 mmol/L (3.5-5.1)
[2016-07-10 07:52] LABS: ALBUMIN/GLOBULIN RATIO 0.82; BILIRUBIN,INDIRECT 0.3 mg/dl (0-1.1); BILIRUBIN,TOTAL 0.3 mg/dl (0.2-1.3); CREATININE 1.57 mg/dl (0.61-1.24); TOTAL PROTEIN 6.2 g/dl (6.1-8.1)
[2016-07-10 07:53] LABS: CALCIUM 8.7 mg/dl (8.4-10.2)
[2016-07-10] MEDS: ASPIRIN 81 MG TAB PO SCH (09:08)
[2016-07-10] MEDS: RANOLAZINE (SR) 500 MG TAB PO SCH ×2 (09:09→20:33)
[2016-07-10] MEDS: FISH OIL 1,000 MG CAP PO SCH ×2 (09:09→20:33)
[2016-07-10] MEDS: CLOPIDOGREL 75 MG TAB PO SCH (09:09)
[2016-07-10] MEDS: FAMOTIDINE 20 MG TAB PO SCH ×2 (09:09→20:35)
[2016-07-10] MEDS: ISOSORBIDE DINITRATE 20 MG TAB PO SCH ×3 (09:10→20:34)
[2016-07-10] MEDS: HEPARIN 5,000 UNIT/0.5 ML SYG SC SCH ×2 (09:12→20:50)
[2016-07-10] MEDS ORDERED: GUAIFENESIN/CODEINE 5ML CUP PO PRN (14:30)
[2016-07-10] MEDS: SOD CHLORIDE 0.9% 1,000 ML IV SCH (15:00)
--- NOTE | 2016-07-10 15:01 | PN ---
Date/Time of Note Date/Time of Note DATE: 07/10/16 TIME: 14:59 Assessment/Plan VTE Prophylaxis VTE Prophylaxis Intervention: heparin Lines/Catheters IV [facility]ter Type (from [facility]): Peripheral IV Urinary Cath still in place: No Assessment/Plan Chief Complaint/Hosp Course 1. Right upper lobe Pneumonia, likely community-acquired vs other. Sputum CS with staph aureus. ->Continue Rocephin/Zithromax/Vancomycin.F/u urine legionella antigen. 2. COPD exacerbation with bronchospasm. Improved. ->.Pulmonary on board.Continue bronchodilators. S/P steroids. 3. Sepsis secondary to pneumonia: Resolving. Will monitor. 4. Acute kidney injury on chronic kidney disease. SHERYL likely secondary to sepsis vs diuretic induced. Creatinine trending up. -> Nephrology on board. Monitor renal function closely and avoid nephrotoxins as much as possible. 5. Essential hypertension: Stable. On Isordil / hydralazine / Coreg. 6. Ischemic cardiomyopathy. Continue BBs. Unable to use ACEIs because of worsening renal function. 7. Coronary artery disease, status post multiple percutaneous coronary interventions: On ASA/ Plavix/ Statin / BB / hydralazine/nitrates. 8. Congestive heart failure exacerbation. Acute on chronic. Systolic dysfunction. . Continue medical management with Coreg, Imdur, and aspirin. Diuretics as per nephrology. 9. Hyperglycemia with Type 2 diabetes. A1C 9.8: non compliance Continue accu checks, ISS, pre-meals and Lantus to 40 units. 10. Dyslipidemia. Hold Lipitor due to liver fxn. Continue Fish oil. May need to change to low dose Zocor up on DC with LFT monitoring. 11. Hepatomegaly with Transaminase elevation-likely concurrent illness. Monitor closely. Avoid hepatotoxins as much as possible. 12. Obesity. Weight reduction advised 13. Hx of Nicotine abuse. Patient denied this before and now says he was a smoker. DVT prophylaxis: Heparin PUD prophylaxis: Pepcid PLAN:Continue current medical management.F/u with nephrology recs on trending up creatinine. F/u pulmonary recs. Continue with PT eval/rx. Repeat CXR today. Case discussed with . Problems: Subjective 24 Hr Interval Summary Free Text/Dictation "Not feeling well." Complains of generalized body pain and insomnia. Exam/Review of Systems Vital Signs Vitals Vital Signs Date Time Temp Pulse Resp B/P Pulse Ox O2 Delivery O2 Flow Rate FiO2 07/10/16 14:17 89 20 96 Nasal Cannula 2.0 07/10/16 11:19 98.5 153/87 Intake and Output 07/09/16 07/09/16 07/10/16 14:59 22:59 06:59 Intake Total 2010 ml 910 ml Output Total 740 ml 2000 ml Balance 1270 ml -1090 ml Exam General: Morbidly obese build 55 year-old male lying in bed in mild respiratory distress. HEENT: Normocephalic, atraumatic. Eyes: Anicteric sclerae, conjunctivae clear. ENT: Nasal septum midline, oral mucosa moist. Neck: Supple, no JVD noticed. Respiratory: Bilaterally diminished breath sounds. No use of accessory muscles of respiration. Expiratory wheezing. Cardiovascular: S1, S2 heard. No murmurs or gallops. Abdomen: Soft, nontender, and protuberant. Bowel sounds positive in all 4 quadrants. Genitourinary: Deferred. Extremities: No cyanosis, no clubbing. Bilateral lower extremity 1+ edema. Peripheral pulses palpable. Right groin cath site with no evidence of hematoma. Neurologic: Cranial nerves II through XII grossly intact. The patient is awake, alert, and oriented. Skin: Normal skin turgor. No skin rashes. Results Result Diagram: 07/10/1639 07/10/16 0639 Results 24 hrs Laboratory Tests Test 07/09/16 17:16 07/09/16 20:34 07/10/16 06:39 07/10/16 07:25 Bedside Glucose 87 83 83 Alanine Aminotransferase (ALT/SGPT) 101 H Albumin 2.8 L Albumin/Globulin Ratio 0.82 Alkaline Phosphatase 195 H Anion Gap 14 Aspartate Amino Transf (AST/SGOT) 75 H Basophils # 0.0 Basophils % 0.1 Blood Morphology Comment Blood Urea Nitrogen 37 #H Calcium Level 8.7 Carbon Dioxide Level 34 H Chloride Level 104 Creatinine 1.57 H Direct Bilirubin 0.00 Eosinophils # 0.1 Eosinophils % 1.4 Globulin 3.40 H Glucose Level 83 Hematocrit 44.6 Hemoglobin 14.8 Indirect Bilirubin 0.3 Lymphocytes # 1.6 Lymphocytes % 18.1 Magnesium Level 1.7 Mean Corpuscular Hemoglobin 26.2 L Mean Corpuscular Hemoglobin Concent 33.2 Mean Corpuscular Volume 79.0 L Mean Platelet Volume 8.1 Monocytes # 0.5 Monocytes % 6.1 Neutrophils # 6.7 Neutrophils % 74.3 Nucleated Red Blood Cells # 0.0 Nucleated Red Blood Cells % 0.0 Phosphorus Level 3.7 Platelet Count 272 Potassium Level 3.9 Red Blood Count 5.64 Red Cell Distribution Width 17.6 H Sodium Level 148 H Total Bilirubin 0.3 Total Protein 6.2 White Blood Count 9.0 Test 07/10/16 11:25 Bedside Glucose 77 Medications Medications Current Medications Aspirin (Aspirin) 81 mg DAILY PO Last administered on 07/10/16 09:08; Admin Dose 81 MG; Start 07/03/16 at 09:00 Carvedilol (Coreg) 6.25 mg BID PO Last administered on 07/10/16 09:09; Admin Dose 6.25 MG; Start 07/02/16 at 21:00 Clopidogrel Bisulfate (plaVIX) 75 mg DAILY PO Last administered on 07/10/16 09:09; Admin Dose 75 MG; Start 07/03/16 at 09:00 Hydralazine HCl (Apresoline) 10 mg Q8 PO Last administered on 07/10/16 14:35 ; Admin Dose 10 MG; Start 07/02/16 at 14:00 Isosorbide Dinitrate (Isordil) 20 mg TID PO Last administered on 07/10/16 12: 12; Admin Dose 20 MG; Start 07/02/16 at 13:00 Ranolazine (Ranexa) 1,000 mg Q12 PO Last administered on 07/10/16 09:09; Admin Dose 1,000 MG; Start 07/02/16 at 21:00 Atorvastatin Calcium (Lipitor) 80 mg HS PO Last administered on 07/03/16 21: 21; Admin Dose 80 MG; Start 07/02/16 at 21:00; Status Future Hold Ondansetron HCl (Zofran Inj) 4 mg Q6H PRN IV NAUSEA AND/OR VOMITING Last administered on 07/03/16 12:46; Admin Dose 4 MG; Start 07/02/16 at 11:30 Acetaminophen (Tylenol Tab) 650 mg Q6H PRN PO PAIN LEVEL 1-3 OR FEVER Last administered on 07/05/16 21:52; Admin Dose 650 MG; Start 07/02/16 at 11:30 Acetaminophen (Tylenol Supp) 650 mg Q6H PRN DC PAIN LEVEL 1-3 OR FEVER; Start 07/02/16 at 11:30 Acetaminophen/ Hydrocodone Bitart ([place] (5/325)) 1 tab Q6H PRN PO MODERATE PAIN LEVEL 4-6 Last administered on 07/07/16at 09:11; Admin Dose 1 TAB; Start 07/02/16 at 11:30 Docusate Sodium (Colace) 100 mg Q12H PRN PO CONSTIPATION; Start 07/02/16 at 11 :30 Famotidine (Pepcid) 20 mg Q12 PO Last administered on 07/10/16at 09:09; Admin Dose 20 MG; Start 07/02/16 at 21:00 Heparin Sodium (Porcine) (Heparin (5000 Units/0.5 ml)) 5,000 unit Q12 SC Last administered on 07/10/16at 09:12; Admin Dose 5,000 UNIT; Start 07/02/16 at 21: 00 Miscellaneous Information 1 ea NOTE XX ; Start 07/02/16 at 12:00 Glucose (Glutose) 15 gm Q15M PRN PO DECREASED GLUCOSE; Start 07/02/16 at 12:00 Glucose (Glutose) 22.5 gm Q15M PRN PO DECREASED GLUCOSE; Start 07/02/16 at 12: 00 Dextrose (D50w Syringe) 25 ml Q15M PRN IV DECREASED GLUCOSE; Start 07/02/16 at 12:00 Dextrose (D50w Syringe) 50 ml Q15M PRN IV DECREASED GLUCOSE; Start 07/02/16 at 12:00 Glucagon (Glucagen) 1 mg Q15M PRN IM DECREASED GLUCOSE; Start 07/02/16 at 12: 00 Glucose (Glutose) 15 gm Q15M PRN BUCCAL DECREASED GLUCOSE; Start 07/02/16 at 12:00 Hydralazine HCl 10 mg 10 mg Q6H PRN IV SBP>160; Start 07/02/16 at 15:00 Sodium Chloride 1,000 ml @ 40 mls/hr Q24H IV Last administered on 07/09/16at 15:40; Admin Dose 40 MLS/HR; Start 07/02/16 at 15:00 Azithromycin 250 ml @ 250 mls/hr Q24H IVPB Last administered on 12/26/16at 17: 12; Admin Dose 250 MLS/HR; Start 07/04/16 at 17:00 Ceftriaxone Sodium (Rocephin) 50 ml @ 100 mls/hr Q24H IVPB Last administered on 07/09/16at 15:42; Admin Dose 100 MLS/HR; Start 07/04/16 at 16:00 Fish Oil (Fish Oil) 1,000 mg BID PO Last administered on 07/10/16at 09:09; Admin Dose 1,000 MG; Start 07/04/16 at 21:00 Insulin Glargine (Lantus) 40 unit HS SC Last administered on 07/09/16at 20:38; Admin Dose 40 UNIT; Start 07/05/16 at 21:00 Lorazepam (Ativan) 1 mg Q6H PRN IV anxiety; Start 07/05/16 at 14:00 Zolpidem Tartrate (Ambien) 5 mg HS PRN PO INSOMNIA; Start 07/05/16 at 14:00 Lorazepam 1 mg 1 mg Q6H PRN IM anxiety; Start 07/05/16 at 15:00 Vancomycin HCl/ Sodium Chloride (Vancocin/NS) 250 ml @ 83.333 mls/ hr Q24H IVPB Last administered on 07/09/16 17:08; Admin Dose 83.333 MLS/HR; Start at 17:00 Alprazolam (Xanax) 1 mg TID PRN PO ANXIETY Last administered on 07/05/16at 21: 52; Admin Dose 1 MG; Start 07/05/16 at 21:00 Diagnostic Test (Pha) (Accucheck) 1 ea 02 XX Last administered on 07/09/16at 02 :57; Admin Dose 1 EA; Start 07/08/16 at 02:00 Hydromorphone HCl (Dilaudid) 0.5 mg Q4H PRN IV PAIN Last administered on at 03:22; Admin Dose 0.5 MG; Start 07/07/16 at 13:00 Oxycodone/ Acetaminophen (Percocet (5/ 325)) 1 tab Q4H PRN PO PAIN Last administered on 07/09/16at 08:18; Admin Dose 1 TAB; Start 07/07/16 at 13:00 Miscellaneous Information (*Rx Drug Level Order Reminder*) VANCO TROUGH @ 1, 600 ON ... ONCE ONCE XX ; Start 07/11/16 at 16:00; Stop 07/11/16 at 16:01 Guaifenesin/ Codeine Phosphate (Robitussin Ac Liquid Cup) 5 ml Q6H PRN PO COUGH Last administered on 07/10/16at 14:35; Admin Dose 5 ML; Start 07/10/16 at 14:30 ROMANA DIAZ NP Jul 10, 2016 15:01
[2016-07-10] MEDS: CEFTRIAXONE 1 GM/50 ML (PMX) 50 ML IVPB SCH (15:20)
--- NOTE | 2016-07-10 15:56 | RADRPT ---
PROCEDURE: XR Chest. CLINICAL INDICATION: Pneumonia TECHNIQUE: Chest AP portable. COMPARISON: 07/08/2016 FINDINGS: The mediastinal structures are unremarkable. There is calcification of the thoracic aorta (consiste nt with atherosclerosis). There is moderate cardiac enlargement. There is mild pulmonary venous hy pertension. There is no change in the RUL consolidation. The pleural spaces are unremarkable. The osseous structures are unremarkable. IMPRESSION: Moderate cardiac enlargement. Mild pulmonary venous hypertension. No change in RUL consolidation. RPTAT: HGDB .Best Steel MD, MD Date Time Electronically viewed and signed by .Best Steel MD, on 07/10/2016 15:55 .B/
[2016-07-10] MEDS: VANCOMYCIN 1.25 GM in SOD CHLORIDE 0.9% 250 ML IVPB SCH (16:38)
[2016-07-10] MEDS: AZITHROMYCIN 500MG/NS (PMX) 250 ML IVPB SCH (16:46)
--- NOTE | 2016-07-10 18:02 | CONS ---
Date/Time of Note Date/Time of Note DATE: 07/10/16 TIME: 18:01 Assessment/Plan Assessment/Plan Chief Complaint/Hosp Course IMPRESSION: 1. The patient has pneumonia. 2. jovani w ckd 3. Underlying chronic kidney disease. 4. Diabetes mellitus. 5. Hypertension. 6. Anemia. 7. EDEMA 8. Obesity. 9. Dyslipidemia. 10 hypernatremia on diuretic plan f/u bmp LASIX Problems: Consultation Date/Type/Reason Admit Date/Time Jul 02, 2016 at 09:58 Type of Consultation: NEPHROLOGY Referring Provider: NARENDRA CHAWLA MD 24 HR Interval Summary Subjective hx not possible: other (sob better) Exam/Review of Systems Vital Signs Vitals Vital Signs Date Time Temp Pulse Resp B/P Pulse Ox O2 Delivery O2 Flow Rate FiO2 07/10/16 16:31 82 07/10/16 15:18 98.4 16 162/82 96 07/10/16 14:17 Nasal Cannula 2.0 Intake and Output 07/09/16 07/09/16 07/10/16 15:00 23:00 07:00 Intake Total 2010 ml 910 ml Output Total 740 ml 2000 ml Balance 1270 ml -1090 ml Exam Respiratory: clear to auscultation Cardiovascular: regular rate and rhythm Gastrointestinal: soft Musculoskeletal: nl extremities to inspection Extremities: normal pulses Results Result Diagram: 07/10/16 0639 07/10/16 0639 Results 24 hrs Laboratory Tests Test 07/09/16 20:34 07/10/16 06:39 07/10/16 07:25 07/10/16 11:25 Bedside Glucose 83 83 77 Alanine Aminotransferase (ALT/SGPT) 101 H Albumin 2.8 L Albumin/Globulin Ratio 0.82 Alkaline Phosphatase 195 H Anion Gap 14 Aspartate Amino Transf (AST/SGOT) 75 H Basophils # 0.0 Basophils % 0.1 Blood Morphology Comment Blood Urea Nitrogen 37 #H Calcium Level 8.7 Carbon Dioxide Level 34 H Chloride Level 104 Creatinine 1.57 H Direct Bilirubin 0.00 Eosinophils # 0.1 Eosinophils % 1.4 Globulin 3.40 H Glucose Level 83 Hematocrit 44.6 Hemoglobin 14.8 Indirect Bilirubin 0.3 Lymphocytes # 1.6 Lymphocytes % 18.1 Magnesium Level 1.7 Mean Corpuscular Hemoglobin 26.2 L Mean Corpuscular Hemoglobin Concent 33.2 Mean Corpuscular Volume 79.0 L Mean Platelet Volume 8.1 Monocytes # 0.5 Monocytes % 6.1 Neutrophils # 6.7 Neutrophils % 74.3 Nucleated Red Blood Cells # 0.0 Nucleated Red Blood Cells % 0.0 Phosphorus Level 3.7 Platelet Count 272 Potassium Level 3.9 Red Blood Count 5.64 Red Cell Distribution Width 17.6 H Sodium Level 148 H Total Bilirubin 0.3 Total Protein 6.2 White Blood Count 9.0 Test 07/10/16 17:16 Bedside Glucose 91 Medications Medications Current Medications Aspirin (Aspirin) 81 mg DAILY PO Last administered on 07/10/16 09:08; Admin Dose 81 MG; Start 07/03/16 at 09:00 Carvedilol (Coreg) 6.25 mg BID PO Last administered on 07/10/16 09:09; Admin Dose 6.25 MG; Start 07/02/16 at 21:00 Clopidogrel Bisulfate (plaVIX) 75 mg DAILY PO Last administered on 07/10/16 09:09; Admin Dose 75 MG; Start 07/03/16 at 09:00 Hydralazine HCl (Apresoline) 10 mg Q8 PO Last administered on 07/10/16 14:35 ; Admin Dose 10 MG; Start 07/02/16 at 14:00 Isosorbide Dinitrate (Isordil) 20 mg TID PO Last administered on 07/10/16 12: 12; Admin Dose 20 MG; Start 07/02/16 at 13:00 Ranolazine (Ranexa) 1,000 mg Q12 PO Last administered on 07/10/16 09:09; Admin Dose 1,000 MG; Start 07/02/16 at 21:00 Atorvastatin Calcium (Lipitor) 80 mg HS PO Last administered on 07/03/16 21: 21; Admin Dose 80 MG; Start 07/02/16 at 21:00; Status Future Hold Ondansetron HCl (Zofran Inj) 4 mg Q6H PRN IV NAUSEA AND/OR VOMITING Last administered on 07/03/16 12:46; Admin Dose 4 MG; Start 07/02/16 at 11:30 Acetaminophen (Tylenol Tab) 650 mg Q6H PRN PO PAIN LEVEL 1-3 OR FEVER Last administered on 07/05/16 21:52; Admin Dose 650 MG; Start 07/02/16 at 11:30 Acetaminophen (Tylenol Supp) 650 mg Q6H PRN NM PAIN LEVEL 1-3 OR FEVER; Start 07/02/16 at 11:30 Acetaminophen/ Hydrocodone Bitart ([place] (5/325)) 1 tab Q6H PRN PO MODERATE PAIN LEVEL 4-6 Last administered on 07/07/16at 09:11; Admin Dose 1 TAB; Start 07/02/16 at 11:30 Docusate Sodium (Colace) 100 mg Q12H PRN PO CONSTIPATION; Start 07/02/16 at 11 :30 Famotidine (Pepcid) 20 mg Q12 PO Last administered on 07/10/16at 09:09; Admin Dose 20 MG; Start 07/02/16 at 21:00 Heparin Sodium (Porcine) (Heparin (5000 Units/0.5 ml)) 5,000 unit Q12 SC Last administered on 07/10/16at 09:12; Admin Dose 5,000 UNIT; Start 07/02/16 at 21: 00 Miscellaneous Information 1 ea NOTE XX ; Start 07/02/16 at 12:00 Glucose (Glutose) 15 gm Q15M PRN PO DECREASED GLUCOSE; Start 07/02/16 at 12:00 Glucose (Glutose) 22.5 gm Q15M PRN PO DECREASED GLUCOSE; Start 07/02/16 at 12: 00 Dextrose (D50w Syringe) 25 ml Q15M PRN IV DECREASED GLUCOSE; Start 07/02/16 at 12:00 Dextrose (D50w Syringe) 50 ml Q15M PRN IV DECREASED GLUCOSE; Start 07/02/16 at 12:00 Glucagon (Glucagen) 1 mg Q15M PRN IM DECREASED GLUCOSE; Start 07/02/16 at 12: 00 Glucose (Glutose) 15 gm Q15M PRN BUCCAL DECREASED GLUCOSE; Start 07/02/16 at 12:00 Hydralazine HCl 10 mg 10 mg Q6H PRN IV SBP>160; Start 07/02/16 at 15:00 Sodium Chloride 1,000 ml @ 40 mls/hr Q24H IV Last administered on 07/09/16at 15:40; Admin Dose 40 MLS/HR; Start 07/02/16 at 15:00 Azithromycin 250 ml @ 250 mls/hr Q24H IVPB Last administered on 07/10/16at 16: 46; Admin Dose 250 MLS/HR; Start 07/04/16 at 17:00 Ceftriaxone Sodium (Rocephin) 50 ml @ 100 mls/hr Q24H IVPB Last administered on 07/10/16at 15:20; Admin Dose 100 MLS/HR; Start 07/04/16 at 16:00 Fish Oil (Fish Oil) 1,000 mg BID PO Last administered on 07/10/16 09:09; Admin Dose 1,000 MG; Start 07/04/16 at 21:00 Insulin Glargine (Lantus) 40 unit HS SC Last administered on 07/09/16at 20:38; Admin Dose 40 UNIT; Start 07/05/16 at 21:00 Lorazepam (Ativan) 1 mg Q6H PRN IV anxiety; Start 07/05/16 at 14:00 Zolpidem Tartrate (Ambien) 5 mg HS PRN PO INSOMNIA; Start 07/05/16 at 14:00 Lorazepam 1 mg 1 mg Q6H PRN IM anxiety; Start 07/05/16 at 15:00 Vancomycin HCl/ Sodium Chloride (Vancocin/NS) 250 ml @ 83.333 mls/ hr Q24H IVPB Last administered on 07/10/16at 16:38; Admin Dose 83.333 MLS/HR; Start at 17:00 Alprazolam (Xanax) 1 mg TID PRN PO ANXIETY Last administered on 07/05/16at 21: 52; Admin Dose 1 MG; Start 07/05/16 at 21:00 Diagnostic Test (Pha) (Accucheck) 1 ea 02 XX Last administered on 07/09/16at 02 :57; Admin Dose 1 EA; Start 07/08/16 at 02:00 Hydromorphone HCl (Dilaudid) 0.5 mg Q4H PRN IV PAIN Last administered on at 15:21; Admin Dose 0.5 MG; Start 07/07/16 at 13:00 Oxycodone/ Acetaminophen (Percocet (5/ 325)) 1 tab Q4H PRN PO PAIN Last administered on 07/09/16at 08:18; Admin Dose 1 TAB; Start 07/07/16 at 13:00 Miscellaneous Information (*Rx Drug Level Order Reminder*) VANCO TROUGH @ 1, 600 ON ... ONCE ONCE XX ; Start 07/11/16 at 16:00; Stop 07/11/16 at 16:01 Guaifenesin/ Codeine Phosphate (Robitussin Ac Liquid Cup) 5 ml Q6H PRN PO COUGH Last administered on 07/10/16at 14:35; Admin Dose 5 ML; Start 07/10/16 at 14:30 ROBB ALBERT MD Jul 10, 2016 18:02
[2016-07-10] MEDS: INSULIN GLARGINE [LANtus] 3 ML PEN SC SCH (20:51)
[2016-07-11] VITALS (12 sets, daily range): BP systolic 133–176; BP diastolic 72–85; PULSE 75–98; RESP 16–18
[2016-07-11] MEDS: ALBUTEROL/IPRATROPIUM (NEB) 3 ML AMP HHN SCH ×6 (01:12→20:14)
[2016-07-11] MEDS: ACCUCHECK XX SCH (01:48)
[2016-07-11] MEDS: HYDROmorphONE 1 MG/ML SYG IV PRN ×5 (03:39→22:15)
[2016-07-11] MEDS: FUROSEMIDE 20 MG INJ IV SCH ×2 (05:54→17:38)
[2016-07-11 06:12] LABS: POTASSIUM 3.9 mmol/L (3.5-5.1)
[2016-07-11 06:15] LABS: CALCIUM 8.6 mg/dl (8.4-10.2); CREATININE 1.37 mg/dl (0.61-1.24)
[2016-07-11 06:16] LABS: MAGNESIUM 1.7 mg/dl (1.7-2.5); PHOSPHORUS 3.7 mg/dl (2.5-4.9)
[2016-07-11 06:39] LABS: EOSINOPHILS # 0.1 10^3/ul (0.0-0.5)
[2016-07-11 06:54] LABS: EOSINOPHILS % 1.2 % (0.0-7.0); HEMATOCRIT 44.3 % (42.0-52.0); HEMOGLOBIN 14.9 g/dl (14.0-18.0); LYMPHOCYTES # 1.7 10^3/ul (0.8-2.9); LYMPHOCYTES % 17.3 % (15.0-51.0); MEAN CORPUSCULAR HEMOGLOBIN 26.4 pg (29.0-33.0); MEAN CORPUSCULAR HGB CONC 33.6 g/dl (32.0-37.0); MEAN CORPUSCULAR VOLUME 78.6 fl (82.0-101.0); MEAN PLATELET VOLUME 8.4 fl (7.4-10.4); MONOCYTE # 0.6 10^3/ul (0.3-0.9); MONOCYTES % 5.7 % (0.0-11.0); NEUTROPHIL # 7.5 10^3/ul (1.6-7.5); NEUTROPHILS % 75.8 % (39.0-77.0); PLATELET COUNT 279 10^3/UL (140-440); RED BLOOD COUNT 5.64 10^6/ul (4.70-6.10); RED CELL DISTRIBUTION WIDTH 17.3 % (11.5-14.5); UNCORRECTED WBC 9.9 10^3/ul (4.8-10.8); WHITE BLOOD COUNT 9.9 10^3/ul (4.8-10.8)
[2016-07-11 07:05] LABS: CONDITION 1; LH ANALYZER COMMENTS 1; SUSPECT 1
[2016-07-11] MEDS: INSULIN ASPART [NOVOLOG] 3 ML PEN SC SCH ×7 (08:00→21:00)
[2016-07-11] MEDS: ASPIRIN 81 MG TAB PO SCH (10:08)
[2016-07-11] MEDS: FISH OIL 1,000 MG CAP PO SCH ×2 (10:09→22:06)
[2016-07-11] MEDS: FAMOTIDINE 20 MG TAB PO SCH ×2 (10:11→22:06)
[2016-07-11] MEDS: CLOPIDOGREL 75 MG TAB PO SCH (10:11)
[2016-07-11] MEDS: ISOSORBIDE DINITRATE 20 MG TAB PO SCH ×3 (10:12→22:06)
[2016-07-11] MEDS: RANOLAZINE (SR) 500 MG TAB PO SCH ×2 (10:12→22:05)
[2016-07-11] MEDS: HEPARIN 5,000 UNIT/0.5 ML SYG SC SCH ×2 (10:13→22:16)
--- NOTE | 2016-07-11 11:20 | PN ---
Date/Time of Note Date/Time of Note DATE: 07/11/16 TIME: 11:17 Assessment/Plan VTE Prophylaxis VTE Prophylaxis Intervention: heparin Lines/Catheters IV C[facility] Type (from [facility] Peripheral IV Urinary Cath still in place: No Assessment/Plan Chief Complaint/Hosp Course 1. Right upper lobe Pneumonia. Legionella pneumonia. Chest x-ray showing persistent right upper lobe infiltrate. Will obtain a CT scan of the chest to further evaluate this. Sputum CS with staph aureus. ->Continue Rocephin/Zithromax/Vancomycin. 2. COPD exacerbation with bronchospasm. Improved. ->.Pulmonary on board.Continue bronchodilators. S/P steroids. 3. Sepsis secondary to pneumonia: Resolving. Will monitor. 4. Acute kidney injury on chronic kidney disease. SHERYL likely secondary to sepsis vs diuretic induced. Creatinine trending up. -> Nephrology on board. Monitor renal function closely and avoid nephrotoxins as much as possible. 5. Essential hypertension: Stable. On Isordil / hydralazine / Coreg. 6. Ischemic cardiomyopathy. Continue BBs. Unable to use ACEIs because of worsening renal function. 7. Coronary artery disease, status post multiple percutaneous coronary interventions: On ASA/ Plavix/ Statin / BB / hydralazine/nitrates. 8. Congestive heart failure exacerbation. Acute on chronic. Systolic dysfunction. . Continue medical management with Coreg, Imdur, and aspirin. Diuretics as per nephrology. 9. Hyperglycemia with Type 2 diabetes. A1C 9.8: non compliance Continue accu checks, ISS, pre-meals and Lantus to 30 units. 10. Dyslipidemia. Hold Lipitor due to liver fxn. Continue Fish oil. May need to change to low dose Zocor up on DC with LFT monitoring. 11. Hepatomegaly with Transaminase elevation-likely concurrent illness. Monitor closely. Avoid hepatotoxins as much as possible. 12. Obesity. Weight reduction advised 13. Hx of Nicotine abuse. Patient denied this before and now says he was a smoker. DVT prophylaxis: Heparin PUD prophylaxis: Pepcid PLAN: Obtain chest CT scan. Called infectious diseases consult for antibiotic management because of persistent right upper lobe pneumonia. Case discussed with . Problems: Subjective 24 Hr Interval Summary Free Text/Dictation Complains of dyspnea and cough. Exam/Review of Systems Vital Signs Vitals Vital Signs Date Time Temp Pulse Resp B/P Pulse Ox O2 Delivery O2 Flow Rate FiO2 07/11/16 09:20 94 2.0 07/11/16 09:20 85 20 Nasal Cannula 07/11/16 07:05 98.2 158/77 07/10/16 21:50 28 Intake and Output 07/10/16 07/10/16 07/11/16 15:00 23:00 07:00 Intake Total 1990 ml 1000 ml Output Total 1350 ml 2500 ml Balance 640 ml -1500 ml Exam General: Morbidly obese build 55 year-old male lying in bed in mild respiratory distress. HEENT: Normocephalic, atraumatic. Eyes: Anicteric sclerae, conjunctivae clear. ENT: Nasal septum midline, oral mucosa moist. Neck: Supple, no JVD noticed. Respiratory: Bilaterally diminished breath sounds. No use of accessory muscles of respiration. Expiratory wheezing. Cardiovascular: S1, S2 heard. No murmurs or gallops. Abdomen: Soft, nontender, and protuberant. Bowel sounds positive in all 4 quadrants. Genitourinary: Deferred. Extremities: No cyanosis, no clubbing. Bilateral lower extremity 1+ edema. Peripheral pulses palpable. Neurologic: Cranial nerves II through XII grossly intact. The patient is awake, alert, and oriented. Skin: Normal skin turgor. No skin rashes. Results Result Diagram: 07/11/16 0545 07/11/16 0535 Results 24 hrs Laboratory Tests Test 07/10/16 11:25 07/10/16 17:16 07/10/16 20:45 07/11/16 05:35 Bedside Glucose 77 91 145 Anion Gap 15 Blood Urea Nitrogen 32 H Calcium Level 8.6 Carbon Dioxide Level 31 Chloride Level 104 Creatinine 1.37 H Glucose Level 56 #L Magnesium Level 1.7 Phosphorus Level 3.7 Potassium Level 3.9 Sodium Level 146 H Test 07/11/16 05:45 07/11/16 07:22 07/11/16 07:42 Basophils # 0.0 Basophils % 0.0 Blood Morphology Comment Eosinophils # 0.1 Eosinophils % 1.2 Hematocrit 44.3 Hemoglobin 14.9 Lymphocytes # 1.7 Lymphocytes % 17.3 Mean Corpuscular Hemoglobin 26.4 L Mean Corpuscular Hemoglobin Concent 33.6 Mean Corpuscular Volume 78.6 L Mean Platelet Volume 8.4 Monocytes # 0.6 Monocytes % 5.7 Neutrophils # 7.5 Neutrophils % 75.8 Nucleated Red Blood Cells # 0.0 Nucleated Red Blood Cells % 0.0 Platelet Count 279 Red Blood Count 5.64 Red Cell Distribution Width 17.3 H White Blood Count 9.9 Bedside Glucose 65 L 102 Medications Medications Current Medications Aspirin (Aspirin) 81 mg DAILY PO Last administered on 07/11/16 10:08; Admin Dose 81 MG; Start 07/03/16 at 09:00 Carvedilol (Coreg) 6.25 mg BID PO Last administered on 07/11/16 10:09; Admin Dose 6.25 MG; Start 07/02/16 at 21:00 Clopidogrel Bisulfate (plaVIX) 75 mg DAILY PO Last administered on 07/11/16 10:11; Admin Dose 75 MG; Start 07/03/16 at 09:00 Hydralazine HCl (Apresoline) 10 mg Q8 PO Last administered on 07/11/16 05:54 ; Admin Dose 10 MG; Start 07/02/16 at 14:00 Isosorbide Dinitrate (Isordil) 20 mg TID PO Last administered on 07/11/16 10: 12; Admin Dose 20 MG; Start 07/02/16 at 13:00 Ranolazine (Ranexa) 1,000 mg Q12 PO Last administered on 07/11/16 10:12; Admin Dose 1,000 MG; Start 07/02/16 at 21:00 Atorvastatin Calcium (Lipitor) 80 mg HS PO Last administered on 07/03/16 21: 21; Admin Dose 80 MG; Start 07/02/16 at 21:00; Status Future Hold Ondansetron HCl (Zofran Inj) 4 mg Q6H PRN IV NAUSEA AND/OR VOMITING Last administered on 07/03/16 12:46; Admin Dose 4 MG; Start 07/02/16 at 11:30 Acetaminophen (Tylenol Tab) 650 mg Q6H PRN PO PAIN LEVEL 1-3 OR FEVER Last administered on 07/05/16 21:52; Admin Dose 650 MG; Start 07/02/16 at 11:30 Acetaminophen (Tylenol Supp) 650 mg Q6H PRN DC PAIN LEVEL 1-3 OR FEVER; Start 07/02/16 at 11:30 Acetaminophen/ Hydrocodone Bitart ([place] (5/325)) 1 tab Q6H PRN PO MODERATE PAIN LEVEL 4-6 Last administered on 07/07/16at 09:11; Admin Dose 1 TAB; Start 07/02/16 at 11:30 Docusate Sodium (Colace) 100 mg Q12H PRN PO CONSTIPATION; Start 07/02/16 at 11 :30 Famotidine (Pepcid) 20 mg Q12 PO Last administered on 07/11/16at 10:11; Admin Dose 20 MG; Start 07/02/16 at 21:00 Heparin Sodium (Porcine) (Heparin (5000 Units/0.5 ml)) 5,000 unit Q12 SC Last administered on 07/11/16at 10:13; Admin Dose 5,000 UNIT; Start 07/02/16 at 21: 00 Miscellaneous Information 1 ea NOTE XX ; Start 07/02/16 at 12:00 Glucose (Glutose) 15 gm Q15M PRN PO DECREASED GLUCOSE; Start 07/02/16 at 12:00 Glucose (Glutose) 22.5 gm Q15M PRN PO DECREASED GLUCOSE; Start 07/02/16 at 12: 00 Dextrose (D50w Syringe) 25 ml Q15M PRN IV DECREASED GLUCOSE; Start 07/02/16 at 12:00 Dextrose (D50w Syringe) 50 ml Q15M PRN IV DECREASED GLUCOSE; Start 07/02/16 at 12:00 Glucagon (Glucagen) 1 mg Q15M PRN IM DECREASED GLUCOSE; Start 07/02/16 at 12: 00 Glucose (Glutose) 15 gm Q15M PRN BUCCAL DECREASED GLUCOSE; Start 07/02/16 at 12:00 Hydralazine HCl 10 mg 10 mg Q6H PRN IV SBP>160; Start 07/02/16 at 15:00 Sodium Chloride 1,000 ml @ 40 mls/hr Q24H IV Last administered on 07/09/16at 15:40; Admin Dose 40 MLS/HR; Start 07/02/16 at 15:00 Azithromycin 250 ml @ 250 mls/hr Q24H IVPB Last administered on 07/10/16at 16: 46; Admin Dose 250 MLS/HR; Start 07/04/16 at 17:00 Ceftriaxone Sodium (Rocephin) 50 ml @ 100 mls/hr Q24H IVPB Last administered on 07/10/16at 15:20; Admin Dose 100 MLS/HR; Start 07/04/16 at 16:00 Fish Oil (Fish Oil) 1,000 mg BID PO Last administered on 07/11/16at 10:09; Admin Dose 1,000 MG; Start 07/04/16 at 21:00 Insulin Glargine (Lantus) 40 unit HS SC Last administered on 07/10/16at 20:51; Admin Dose 40 UNIT; Start 07/05/16 at 21:00 Lorazepam (Ativan) 1 mg Q6H PRN IV anxiety; Start 07/05/16 at 14:00 Zolpidem Tartrate (Ambien) 5 mg HS PRN PO INSOMNIA; Start 07/05/16 at 14:00 Lorazepam 1 mg 1 mg Q6H PRN IM anxiety; Start 07/05/16 at 15:00 Vancomycin HCl/ Sodium Chloride (Vancocin/NS) 250 ml @ 83.333 mls/ hr Q24H IVPB Last administered on 07/10/16at 16:38; Admin Dose 83.333 MLS/HR; Start at 17:00 Alprazolam (Xanax) 1 mg TID PRN PO ANXIETY Last administered on 07/05/16at 21: 52; Admin Dose 1 MG; Start 07/05/16 at 21:00 Diagnostic Test (Pha) (Accucheck) 1 ea 02 XX Last administered on 07/09/16at 02 :57; Admin Dose 1 EA; Start 07/08/16 at 02:00 Hydromorphone HCl (Dilaudid) 0.5 mg Q4H PRN IV PAIN Last administered on at 08:47; Admin Dose 0.5 MG; Start 07/07/16 at 13:00 Oxycodone/ Acetaminophen (Percocet (5/ 325)) 1 tab Q4H PRN PO PAIN Last administered on 07/09/16at 08:18; Admin Dose 1 TAB; Start 07/07/16 at 13:00 Miscellaneous Information (*Rx Drug Level Order Reminder*) VANCO TROUGH @ 1, 600 ON ... ONCE ONCE XX ; Start 07/11/16 at 16:00; Stop 07/11/16 at 16:01 Guaifenesin/ Codeine Phosphate (Robitussin Ac Liquid Cup) 5 ml Q6H PRN PO COUGH Last administered on 07/10/16at 14:35; Admin Dose 5 ML; Start 07/10/16 at 14:30 ROMANA DIAZ NP Jul 11, 2016 11:20
[2016-07-11] MEDS: ONDANSETRON 4 MG INJ IV PRN (13:10)
--- NOTE | 2016-07-11 13:57 | RADRPT ---
PROCEDURE: CT CHEST WITHOUT CONTRAST CLINICAL INDICATION: Shortness of breath persistent TECHNIQUE: Volumetrically acquired images of the thorax obtained without intravenous contrast were reformatted in the axial, coronal, and sagittal planes. CTDI = 16.6 mGy; DLP = 631 mGy-cm. COMPARISON: Chest x-ray from 07/10/2016. CT from 06/11/2016 FINDINGS: LOWER NECK AND CHEST WALL: Normal. AIRWAYS: The trachea and large airways are normal. Mild bronchial wall thickening is seen. LUNGS: Moderate centrilobular emphysema is seen. Interval development of right upper lobe consolidat ion. PLEURA: Small right pleural effusion with associated atelectasis. MEDIASTINUM: No mediastinal mass. LYMPH NODES: No significant axillary, hilar, or mediastinal lymphadenopathy by CT size criteria. Pro minent mediastinal lymph nodes are likely reactive in nature. CARDIAC: Mild cardiomegaly. No pericardial effusion or thickening. VASCULAR: The aorta and main pulmonary artery are normal in caliber. Aortic and coronary atheroscl erotic calcifications are present. OSSEOUS: No suspicious osseous lesions. Scattered degenerative changes of the thoracic spine is vis ualized. Limited evaluation of the upper abdomen demonstrates a prior cholecystectomy. IMPRESSION: 1. Background of moderate centrilobular emphysema and smoking related airways disease/chronic bronch itis. 2. Interval development of right upper lobe consolidation with parapneumonic effusion consistent wit h pneumonia. 3. Mild cardiomegaly with aortic and coronary atherosclerosis. 4. Status post cholecystectomy. RPTAT:PP .Karlos Gomes MD, Date Time Electronically viewed and signed by .Karlos Gomes MD, MD on 07/11/2016 13:56 .V/
[2016-07-11] MEDS: SOD CHLORIDE 0.9% 1,000 ML IV SCH (15:00)
[2016-07-11] MEDS: CEFTRIAXONE 1 GM/50 ML (PMX) 50 ML IVPB SCH (16:16)
--- NOTE | 2016-07-11 16:43 | CONS ---
Date/Time of Note Date/Time of Note DATE: 07/11/16 TIME: 16:40 Consult Date/Type/Reason Admit Date/Time Jul 02, 2016 at 09:58 Initial Consult Date Type of Consultation: pulmonary Ordering Provider: NARENDRA CHAWLA MD Subjective Complaining of low back pain still shortness of breath Continues broad-spectrum antibiotics Objective Vital Signs Date Time Temp Pulse Resp B/P Pulse Ox O2 Delivery O2 Flow Rate FiO2 07/11/16 16:31 83 07/11/16 15:10 97.9 16 133/72 94 07/11/16 13:07 Nasal Cannula 4.0 07/10/16 21:50 28 Intake and Output 07/10/16 07/10/16 07/11/16 14:59 22:59 06:59 Intake Total 1990 ml 1000 ml Output Total 1350 ml 2500 ml Balance 640 ml -1500 ml GENERAL: Moderately obese [place] gentleman comfortable at rest VITAL SIGNS: per chart NECK: Supple. No JVD or lymphadenopathy. CARDIAC EXAM: S1, S2. No added sounds or murmurs. CHEST: clear bilaterally, No added sounds, rales or wheezes ABDOMEN: Soft, nontender. No guarding or rebound. EXTREMITIES: No cyanosis, clubbing or edema. NEUROLOGIC: Generalized weakness. Results/Medications Result Diagram: 07/11/16 0545 07/11/16 [address] chest 1. Background of moderate centrilobular emphysema and smoking related airways disease/chronic bronchitis. 2. Interval development of right upper lobe consolidation with parapneumonic effusion consistent with pneumonia. 3. Mild cardiomegaly with aortic and coronary atherosclerosis. 4. Status post cholecystectomy Laboratory Tests Test 07/10/16 17:16 07/10/16 20:45 07/11/16 05:35 07/11/16 05:45 Bedside Glucose 91 145 Anion Gap 15 Blood Urea Nitrogen 32 H Calcium Level 8.6 Carbon Dioxide Level 31 Chloride Level 104 Creatinine 1.37 H Glucose Level 56 #L Magnesium Level 1.7 Phosphorus Level 3.7 Potassium Level 3.9 Sodium Level 146 H Basophils # 0.0 Basophils % 0.0 Blood Morphology Comment Eosinophils # 0.1 Eosinophils % 1.2 Hematocrit 44.3 Hemoglobin 14.9 Lymphocytes # 1.7 Lymphocytes % 17.3 Mean Corpuscular Hemoglobin 26.4 L Mean Corpuscular Hemoglobin Concent 33.6 Mean Corpuscular Volume 78.6 L Mean Platelet Volume 8.4 Monocytes # 0.6 Monocytes % 5.7 Neutrophils # 7.5 Neutrophils % 75.8 Nucleated Red Blood Cells # 0.0 Nucleated Red Blood Cells % 0.0 Platelet Count 279 Red Blood Count 5.64 Red Cell Distribution Width 17.3 H White Blood Count 9.9 Test 07/11/16 07:22 07/11/16 07:42 07/11/16 12:22 Bedside Glucose 65 L 102 80 Medications Current Medications Aspirin (Aspirin) 81 mg DAILY PO Last administered on 07/11/16 10:08; Admin Dose 81 MG; Start 07/03/16 at 09:00 Carvedilol (Coreg) 6.25 mg BID PO Last administered on 07/11/16 10:09; Admin Dose 6.25 MG; Start 07/02/16 at 21:00 Clopidogrel Bisulfate (plaVIX) 75 mg DAILY PO Last administered on 07/11/16 10:11; Admin Dose 75 MG; Start 07/03/16 at 09:00 Hydralazine HCl (Apresoline) 10 mg Q8 PO Last administered on 07/11/16 13:18 ; Admin Dose 10 MG; Start 07/02/16 at 14:00 Isosorbide Dinitrate (Isordil) 20 mg TID PO Last administered on 07/11/16 13: 17; Admin Dose 20 MG; Start 07/02/16 at 13:00 Ranolazine (Ranexa) 1,000 mg Q12 PO Last administered on 07/11/16 10:12; Admin Dose 1,000 MG; Start 07/02/16 at 21:00 Atorvastatin Calcium (Lipitor) 80 mg HS PO Last administered on 07/03/16 21: 21; Admin Dose 80 MG; Start 07/02/16 at 21:00; Status Future Hold Ondansetron HCl (Zofran Inj) 4 mg Q6H PRN IV NAUSEA AND/OR VOMITING Last administered on 07/11/16 13:10; Admin Dose 4 MG; Start 07/02/16 at 11:30 Acetaminophen (Tylenol Tab) 650 mg Q6H PRN PO PAIN LEVEL 1-3 OR FEVER Last administered on 07/05/16 21:52; Admin Dose 650 MG; Start 07/02/16 at 11:30 Acetaminophen (Tylenol Supp) 650 mg Q6H PRN [place] PAIN LEVEL 1-3 OR FEVER; Start 07/02/16 at 11:30 Acetaminophen/ Hydrocodone Bitart (Crestone (5/325)) 1 tab Q6H PRN PO MODERATE PAIN LEVEL 4-6 Last administered on 07/07/16at 09:11; Admin Dose 1 TAB; Start 07/02/16 at 11:30 Docusate Sodium (Colace) 100 mg Q12H PRN PO CONSTIPATION; Start 07/02/16 at 11 :30 Famotidine (Pepcid) 20 mg Q12 PO Last administered on 07/11/16at 10:11; Admin Dose 20 MG; Start 07/02/16 at 21:00 Heparin Sodium (Porcine) (Heparin (5000 Units/0.5 ml)) 5,000 unit Q12 SC Last administered on 07/11/16at 10:13; Admin Dose 5,000 UNIT; Start 07/02/16 at 21: 00 Miscellaneous Information 1 ea NOTE XX ; Start 07/02/16 at 12:00 Glucose (Glutose) 15 gm Q15M PRN PO DECREASED GLUCOSE; Start 07/02/16 at 12:00 Glucose (Glutose) 22.5 gm Q15M PRN PO DECREASED GLUCOSE; Start 07/02/16 at 12: 00 Dextrose (D50w Syringe) 25 ml Q15M PRN IV DECREASED GLUCOSE; Start 07/02/16 at 12:00 Dextrose (D50w Syringe) 50 ml Q15M PRN IV DECREASED GLUCOSE; Start 07/02/16 at 12:00 Glucagon (Glucagen) 1 mg Q15M PRN IM DECREASED GLUCOSE; Start 07/02/16 at 12: 00 Glucose (Glutose) 15 gm Q15M PRN BUCCAL DECREASED GLUCOSE; Start 07/02/16 at 12:00 Hydralazine HCl 10 mg 10 mg Q6H PRN IV SBP>160; Start 07/02/16 at 15:00 Sodium Chloride 1,000 ml @ 40 mls/hr Q24H IV Last administered on 07/09/16at 15:40; Admin Dose 40 MLS/HR; Start 07/02/16 at 15:00 Azithromycin 250 ml @ 250 mls/hr Q24H IVPB Last administered on 07/10/16at 16: 46; Admin Dose 250 MLS/HR; Start 07/04/16 at 17:00 Ceftriaxone Sodium (Rocephin) 50 ml @ 100 mls/hr Q24H IVPB Last administered on 07/11/16at 16:16; Admin Dose 100 MLS/HR; Start 07/04/16 at 16:00 Fish Oil (Fish Oil) 1,000 mg BID PO Last administered on 07/11/16at 10:09; Admin Dose 1,000 MG; Start 07/04/16 at 21:00 Lorazepam (Ativan) 1 mg Q6H PRN IV anxiety; Start 07/05/16 at 14:00 Zolpidem Tartrate (Ambien) 5 mg HS PRN PO INSOMNIA; Start 07/05/16 at 14:00 Lorazepam 1 mg 1 mg Q6H PRN IM anxiety; Start 07/05/16 at 15:00 Vancomycin HCl/ Sodium Chloride (Vancocin/NS) 250 ml @ 83.333 mls/ hr Q24H IVPB Last administered on 07/10/16at 16:38; Admin Dose 83.333 MLS/HR; Start at 17:00 Alprazolam (Xanax) 1 mg TID PRN PO ANXIETY Last administered on 07/05/16 21: 52; Admin Dose 1 MG; Start 07/05/16 at 21:00 Diagnostic Test (Pha) (Accucheck) 1 ea 02 XX Last administered on 07/09/16at 02 :57; Admin Dose 1 EA; Start 07/08/16 at 02:00 Hydromorphone HCl (Dilaudid) 0.5 mg Q4H PRN IV PAIN Last administered on at 13:08; Admin Dose 0.5 MG; Start 07/07/16 at 13:00 Oxycodone/ Acetaminophen (Percocet (5/ 325)) 1 tab Q4H PRN PO PAIN Last administered on 07/09/16at 08:18; Admin Dose 1 TAB; Start 07/07/16 at 13:00 Guaifenesin/ Codeine Phosphate (Robitussin Ac Liquid Cup) 5 ml Q6H PRN PO COUGH Last administered on 07/10/16at 14:35; Admin Dose 5 ML; Start 07/10/16 at 14:30 Insulin Glargine (Lantus) 30 unit HS SC ; Start 07/11/16 at 21:00 Assessment/Plan Chief Complaint/Hosp Course Assessment 1. Right upper lobe pneumonia, differential does include bronchoalveolar lung CA 2. History of tobacco use 3. Underlying emphysema 4. Hypernatremia Plan 1. Continue antibiotics 2. Repeat chest x-ray in 1-2 days 3. Chest x-ray shows no improvement despite current antibiotics patient will likely need bronchoscopy and/or CT-guided lung biopsy Discussed with patient who agrees with plan of care Problems: MAXX APPLE MD, [facility] Jul 11, 2016 16:43
--- NOTE | 2016-07-11 16:55 | CONS ---
DATE OF ADMISSION: 07/02/2016 DATE OF CONSULTATION: 07/11/2016 TYPE OF CONSULTATION: Infectious Disease. REASON FOR CONSULTATION: Antibiotic management. HISTORY OF PRESENT ILLNESS: Fadi Reynolds is a 55-year-old white male with numerous problems who c omes in with a nonproductive cough, fever, headaches and progressive shortness of breath and is bein g seen for antibiotic management. His past problems include: 1. Hypertension, uncontrolled on admission, placed on hydralazine. 2. Coronary artery disease status post multiple percutaneous coronary interventions. 3. Congestive heart failure with systolic dysfunction, ejection fraction of 45%. 4. Adult-onset diabetes mellitus. 5. Dyslipidemia. 6. Obesity. 7. Status post cholecystectomy. 8. Urolithiasis. 9. Status post appendectomy. 10. Thrombectomy for left leg DVT. He presents to the emergency room with 2 days' duration of cold symptoms, nonproductive cough, fever , headaches, shortness of breath. He was worked up in 05/2016 for acute coronary syndrome which was ruled out. His chest x-ray showed new acute pneumonia in the lateral periphery of the right mid uma ng, minor atelectasis at the lung bases. Chest x-ray on 07/04/2016 showed right upper lobe pneumoni a with mild interval increase and degree of right upper lobe consolidation, mild prominence of inter stitial markings. A liver ultrasound showed mild hepatomegaly with no focal liver lesion. CT scan of the chest was done today, which showed background of moderate centrilobular emphysema and smoking related airways disease with chronic bronchitis, interval development of right upper lung consolida tion with parapneumonic effusion consistent with pneumonia, mild cardiomegaly and status post cholec ystectomy. HOSPITAL COURSE: The patient was seen by Dr. Jeff. The patient was placed on vancomycin and cefep lobito. Initially cefepime, vancomycin was added. The patient is currently on vancomycin, azithromyci n and ceftriaxone. MICROBIOLOGY: His sputum from 07/03/2016 grew out Staph aureus sensitive to everything and his C. d ifficile was negative. Right upper lobe was considered to be legionella pneumoniae with right upper lobe infiltrate. He is on vancomycin, azithromycin and Rocephin, COPD exacerbation, sepsis seconda ry to pneumonia. Infectious disease was called for antibiotic management for persistent right upper lobe pneumonia. PAST MEDICAL HISTORY: OPERATIONS: As outlined. FAMILY HISTORY: Noncontributory. SOCIAL HISTORY: He is a smoker. He does not drink or abuse drugs. ALLERGIES: NONE TO PENICILLIN, SULFA OR FOODS. MEDICATIONS: Per chart. REVIEW OF SYSTEMS: Noncontributory. PHYSICAL EXAMINATION: GENERAL: The patient is an obese white male who is alert, responsive, in no acute distress. VITAL SIGNS: Stable. He is afebrile. SKIN: Without generalized rash. HEENT: Within normal limits. NECK: Supple. LYMPH NODES: None palpable. CHEST: Decreased breath sounds at the bases. HEART: Without murmur or gallop. ABDOMEN: Soft, nontender, without organosplenomegaly or masses. EXTREMITIES: Without cyanosis, clubbing, or edema. RECTAL AND GENITAL: Deferred. NEUROLOGICAL: No focal neurological abnormalities. He is no longer growing Staphylococcus aureus from his sputum, though there are no recent sputum cul tures for this. It is reasonable to order this. I will continue him on his regimen for legionella. I will dictate my findings to Dr. Linares, to the hospitalist and the consultants. Dictated By: DENNIS LEWIS MD, JD/GABY Conf#: [id number] DID#: [id number]
[2016-07-11] MEDS: AZITHROMYCIN 500MG/NS (PMX) 250 ML IVPB SCH (17:32)
--- NOTE | 2016-07-11 19:18 | CONS ---
Date/Time of Note Date/Time of Note DATE: 07/11/16 TIME: 19:17 Assessment/Plan Assessment/Plan Chief Complaint/Hosp Course IMPRESSION: 1. The patient has pneumonia. 2. jovani w ckd stable 3. Underlying chronic kidney disease. 4. Diabetes mellitus. 5. Hypertension. 6. Anemia. 7. EDEMA 8. Obesity. 9. Dyslipidemia. 10 hypernatremia on diuretic 11 leg edema+ plan f/u bmp LASIX Problems: Consultation Date/Type/Reason Admit Date/Time Jul 02, 2016 at 09:58 Type of Consultation: renal Referring Provider: NARENDRA CHAWLA MD 24 HR Interval Summary Constitutional: improved Exam/Review of Systems Vital Signs Vitals Vital Signs Date Time Temp Pulse Resp B/P Pulse Ox O2 Delivery O2 Flow Rate FiO2 07/11/16 16:46 82 18 96 Nasal Cannula 2.0 07/11/16 15:10 97.9 133/72 07/10/16 21:50 28 Intake and Output 07/10/16 07/10/16 07/11/16 15:00 23:00 07:00 Intake Total 1990 ml 1000 ml Output Total 1350 ml 2500 ml Balance 640 ml -1500 ml Exam Respiratory: diminished breath sounds Cardiovascular: regular rate and rhythm Gastrointestinal: soft Extremities: edema (+) Results Result Diagram: 07/11/16 0545 07/11/16 0535 Results 24 hrs Laboratory Tests Test 07/10/16 20:45 07/11/16 05:35 07/11/16 05:45 07/11/16 07:22 Bedside Glucose 145 65 L Anion Gap 15 Blood Urea Nitrogen 32 H Calcium Level 8.6 Carbon Dioxide Level 31 Chloride Level 104 Creatinine 1.37 H Glucose Level 56 #L Magnesium Level 1.7 Phosphorus Level 3.7 Potassium Level 3.9 Sodium Level 146 H Basophils # 0.0 Basophils % 0.0 Blood Morphology Comment Eosinophils # 0.1 Eosinophils % 1.2 Hematocrit 44.3 Hemoglobin 14.9 Lymphocytes # 1.7 Lymphocytes % 17.3 Mean Corpuscular Hemoglobin 26.4 L Mean Corpuscular Hemoglobin Concent 33.6 Mean Corpuscular Volume 78.6 L Mean Platelet Volume 8.4 Monocytes # 0.6 Monocytes % 5.7 Neutrophils # 7.5 Neutrophils % 75.8 Nucleated Red Blood Cells # 0.0 Nucleated Red Blood Cells % 0.0 Platelet Count 279 Red Blood Count 5.64 Red Cell Distribution Width 17.3 H White Blood Count 9.9 Test 07/11/16 07:42 07/11/16 12:22 07/11/16 16:30 07/11/16 17:35 Bedside Glucose 102 80 70 Vancomycin Level Trough 9.4 L Medications Medications Current Medications Aspirin (Aspirin) 81 mg DAILY PO Last administered on 07/11/16 10:08; Admin Dose 81 MG; Start 07/03/16 at 09:00 Carvedilol (Coreg) 6.25 mg BID PO Last administered on 07/11/16 10:09; Admin Dose 6.25 MG; Start 07/02/16 at 21:00 Clopidogrel Bisulfate (plaVIX) 75 mg DAILY PO Last administered on 07/11/16 10:11; Admin Dose 75 MG; Start 07/03/16 at 09:00 Hydralazine HCl (Apresoline) 10 mg Q8 PO Last administered on 07/11/16 13:18 ; Admin Dose 10 MG; Start 07/02/16 at 14:00 Isosorbide Dinitrate (Isordil) 20 mg TID PO Last administered on 07/11/16 13: 17; Admin Dose 20 MG; Start 07/02/16 at 13:00 Ranolazine (Ranexa) 1,000 mg Q12 PO Last administered on 07/11/16 10:12; Admin Dose 1,000 MG; Start 07/02/16 at 21:00 Atorvastatin Calcium (Lipitor) 80 mg HS PO Last administered on 07/03/16 21: 21; Admin Dose 80 MG; Start 07/02/16 at 21:00; Status Future Hold Ondansetron HCl (Zofran Inj) 4 mg Q6H PRN IV NAUSEA AND/OR VOMITING Last administered on 07/11/16 13:10; Admin Dose 4 MG; Start 07/02/16 at 11:30 Acetaminophen (Tylenol Tab) 650 mg Q6H PRN PO PAIN LEVEL 1-3 OR FEVER Last administered on 07/05/16at 21:52; Admin Dose 650 MG; Start 07/02/16 at 11:30 Acetaminophen (Tylenol Supp) 650 mg Q6H PRN [place] PAIN LEVEL 1-3 OR FEVER; Start 07/02/16 at 11:30 Acetaminophen/ Hydrocodone Bitart ([place] (5/325)) 1 tab Q6H PRN PO MODERATE PAIN LEVEL 4-6 Last administered on 07/07/16at 09:11; Admin Dose 1 TAB; Start 07/02/16 at 11:30 Docusate Sodium (Colace) 100 mg Q12H PRN PO CONSTIPATION; Start 07/02/16 at 11 :30 Famotidine (Pepcid) 20 mg Q12 PO Last administered on 07/11/16at 10:11; Admin Dose 20 MG; Start 07/02/16 at 21:00 Heparin Sodium (Porcine) (Heparin (5000 Units/0.5 ml)) 5,000 unit Q12 SC Last administered on 07/11/16at 10:13; Admin Dose 5,000 UNIT; Start 07/02/16 at 21: 00 Miscellaneous Information 1 ea NOTE XX ; Start 07/02/16 at 12:00 Glucose (Glutose) 15 gm Q15M PRN PO DECREASED GLUCOSE; Start 07/02/16 at 12:00 Glucose (Glutose) 22.5 gm Q15M PRN PO DECREASED GLUCOSE; Start 07/02/16 at 12: 00 Dextrose (D50w Syringe) 25 ml Q15M PRN IV DECREASED GLUCOSE; Start 07/02/16 at 12:00 Dextrose (D50w Syringe) 50 ml Q15M PRN IV DECREASED GLUCOSE; Start 07/02/16 at 12:00 Glucagon (Glucagen) 1 mg Q15M PRN IM DECREASED GLUCOSE; Start 07/02/16 at 12: 00 Glucose (Glutose) 15 gm Q15M PRN BUCCAL DECREASED GLUCOSE; Start 07/02/16 at 12:00 Hydralazine HCl 10 mg 10 mg Q6H PRN IV SBP>160; Start 07/02/16 at 15:00 Sodium Chloride 1,000 ml @ 40 mls/hr Q24H IV Last administered on 07/09/16at 15:40; Admin Dose 40 MLS/HR; Start 07/02/16 at 15:00 Azithromycin 250 ml @ 250 mls/hr Q24H IVPB Last administered on 07/11/16at 17: 32; Admin Dose 250 MLS/HR; Start 07/04/16 at 17:00 Ceftriaxone Sodium (Rocephin) 50 ml @ 100 mls/hr Q24H IVPB Last administered on 07/11/16 16:16; Admin Dose 100 MLS/HR; Start 07/04/16 at 16:00 Fish Oil (Fish Oil) 1,000 mg BID PO Last administered on 07/11/16at 10:09; Admin Dose 1,000 MG; Start 07/04/16 at 21:00 Lorazepam (Ativan) 1 mg Q6H PRN IV anxiety; Start 07/05/16 at 14:00 Zolpidem Tartrate (Ambien) 5 mg HS PRN PO INSOMNIA; Start 07/05/16 at 14:00 Lorazepam (Ativan) 1 mg Q6H PRN IM anxiety; Start 07/05/16 at 15:00 Alprazolam (Xanax) 1 mg TID PRN PO ANXIETY Last administered on 07/05/16at 21: 52; Admin Dose 1 MG; Start 07/05/16 at 21:00 Diagnostic Test (Pha) (Accucheck) 1 ea 02 XX Last administered on 07/09/16at 02 :57; Admin Dose 1 EA; Start 07/08/16 at 02:00 Hydromorphone HCl (Dilaudid) 0.5 mg Q4H PRN IV PAIN Last administered on at 17:31; Admin Dose 0.5 MG; Start 07/07/16 at 13:00 Oxycodone/ Acetaminophen (Percocet (5/ 325)) 1 tab Q4H PRN PO PAIN Last administered on 07/09/16at 08:18; Admin Dose 1 TAB; Start 07/07/16 at 13:00 Guaifenesin/ Codeine Phosphate (Robitussin Ac Liquid Cup) 5 ml Q6H PRN PO COUGH Last administered on 07/10/16at 14:35; Admin Dose 5 ML; Start 07/10/16 at 14:30 Insulin Glargine 30 unit 30 unit HS SC ; Start 07/11/16 at 21:00 Vancomycin HCl/ Sodium Chloride (Vancocin/NS) 500 ml @ 125 mls/hr Q24H IVPB ; Start 07/11/16 at 20:00 ROBB ALBERT MD Jul 11, 2016 19:18
[2016-07-11] MEDS: INSULIN GLARGINE [LANtus] 3 ML PEN SC SCH (21:00)
[2016-07-11] MEDS: VANCOMYCIN 1.75 GM in NS 500 ML IVPB SCH (22:15)
[2016-07-12] VITALS (11 sets, daily range): BP systolic 126–147; BP diastolic 65–87; PULSE 77–84; RESP 19–20
[2016-07-12] MEDS: ALBUTEROL/IPRATROPIUM (NEB) 3 ML AMP HHN SCH ×6 (01:05→21:00)
[2016-07-12] MEDS: ACCUCHECK XX SCH (02:00)
[2016-07-12] MEDS: HYDROmorphONE 1 MG/ML SYG IV PRN ×4 (02:26→19:39)
[2016-07-12] MEDS: FUROSEMIDE 20 MG INJ IV SCH ×2 (06:35→17:55)
[2016-07-12] MEDS: SOD CHLORIDE 0.9% 1,000 ML IV SCH (06:36)
[2016-07-12 06:46] LABS: BASOPHILS % 0.1 % (0.0-2.0); EOSINOPHILS # 0.1 10^3/ul (0.0-0.5); EOSINOPHILS % 1.4 % (0.0-7.0); HEMATOCRIT 43.4 % (42.0-52.0); HEMOGLOBIN 14.4 g/dl (14.0-18.0); LYMPHOCYTES # 1.7 10^3/ul (0.8-2.9); LYMPHOCYTES % 18.7 % (15.0-51.0); MEAN CORPUSCULAR HEMOGLOBIN 26.3 pg (29.0-33.0); MEAN CORPUSCULAR HGB CONC 33.3 g/dl (32.0-37.0); MEAN CORPUSCULAR VOLUME 79.1 fl (82.0-101.0); MEAN PLATELET VOLUME 8.3 fl (7.4-10.4); MONOCYTE # 0.9 10^3/ul (0.3-0.9); MONOCYTES % 9.4 % (0.0-11.0); NEUTROPHIL # 6.4 10^3/ul (1.6-7.5); NEUTROPHILS % 70.4 % (39.0-77.0); PLATELET COUNT 243 10^3/UL (140-440); RED BLOOD COUNT 5.49 10^6/ul (4.70-6.10); RED CELL DISTRIBUTION WIDTH 17.4 % (11.5-14.5)
[2016-07-12 06:50] LABS: PHOSPHORUS 3.3 mg/dl (2.5-4.9)
[2016-07-12 06:51] LABS: MAGNESIUM 1.6 mg/dl (1.7-2.5)
[2016-07-12 06:52] LABS: POTASSIUM 4.1 mmol/L (3.5-5.1)
[2016-07-12 06:54] LABS: CREATININE 1.45 mg/dl (0.61-1.24)
[2016-07-12 06:55] LABS: CALCIUM 8.2 mg/dl (8.4-10.2)
[2016-07-12 07:01] LABS: CONDITION 1; LH ANALYZER COMMENTS 1
[2016-07-12] MEDS: INSULIN ASPART [NOVOLOG] 3 ML PEN SC SCH ×7 (08:52→21:00)
[2016-07-12] MEDS: RANOLAZINE (SR) 500 MG TAB PO SCH ×2 (08:53→20:34)
[2016-07-12] MEDS: HEPARIN 5,000 UNIT/0.5 ML SYG SC SCH ×2 (08:53→20:43)
[2016-07-12] MEDS: FISH OIL 1,000 MG CAP PO SCH ×2 (08:54→20:34)
[2016-07-12] MEDS: ASPIRIN 81 MG TAB PO SCH (08:54)
[2016-07-12] MEDS: CLOPIDOGREL 75 MG TAB PO SCH (08:54)
[2016-07-12] MEDS: ISOSORBIDE DINITRATE 20 MG TAB PO SCH ×3 (08:54→22:35)
[2016-07-12] MEDS: FAMOTIDINE 20 MG TAB PO SCH ×2 (08:54→20:35)
[2016-07-12] MEDS ORDERED: MAGNESIUM SULFATE 2 GM/50 ML 50 ML IVPB SCH (13:00)
--- NOTE | 2016-07-12 13:22 | PN ---
Date/Time of Note Date/Time of Note DATE: 07/12/16 TIME: 13:20 Assessment/Plan VTE Prophylaxis VTE Prophylaxis Intervention: heparin Lines/Catheters IV Catheter Type (from [facility]): Peripheral IV Urinary Cath still in place: No Assessment/Plan Chief Complaint/Hosp Course 1. Right upper lobe Pneumonia. Legionella pneumonia. Chest x-ray showing persistent right upper lobe infiltrate. Sputum CS with staph aureus. ->Continue Rocephin/Zithromax/Vancomycin. Infectious diseases following. 2. COPD exacerbation with bronchospasm. Improved. ->.Pulmonary on board.Continue bronchodilators. S/P steroids. 3. Sepsis secondary to pneumonia: Resolving. Will monitor. 4. Acute kidney injury on chronic kidney disease. SHERYL likely secondary to sepsis vs diuretic induced. Creatinine trending up. -> Nephrology on board. Monitor renal function closely and avoid nephrotoxins as much as possible. 5. Essential hypertension: Stable. On Isordil / hydralazine / Coreg. 6. Ischemic cardiomyopathy. Continue BBs. Unable to use ACEIs because of worsening renal function. 7. Coronary artery disease, status post multiple percutaneous coronary interventions: On ASA/ Plavix/ Statin / BB / hydralazine/nitrates. 8. Congestive heart failure exacerbation. Acute on chronic. Systolic dysfunction. . Continue medical management with Coreg, Imdur, and aspirin. Diuretics as per nephrology. 9. Hyperglycemia with Type 2 diabetes. A1C 9.8: non compliance Continue accu checks, ISS, pre-meals and Lantus to 30 units. 10. Dyslipidemia. Hold Lipitor due to liver fxn. Continue Fish oil. May need to change to low dose Zocor up on DC with LFT monitoring. 11. Hepatomegaly with Transaminase elevation-likely concurrent illness. Monitor closely. Avoid hepatotoxins as much as possible. 12. Obesity. Weight reduction advised 13. Hx of Nicotine abuse. Patient denied this before and now says he was a smoker. DVT prophylaxis: Heparin PUD prophylaxis: Pepcid PLAN: Continue antibiotics as per infectious diseases. Await further input from consultants. Case discussed with . Problems: Subjective 24 Hr Interval Summary Free Text/Dictation Complains of dyspnea. Exam/Review of Systems Vital Signs Vitals Vital Signs Date Time Temp Pulse Resp B/P Pulse Ox O2 Delivery O2 Flow Rate FiO2 07/12/16 12:04 83 07/12/16 11:49 97.6 20 135/72 96 07/12/16 08:01 Nasal Cannula 2.0 07/10/16 21:50 28 Intake and Output 07/11/16 07/11/16 07/12/16 15:00 23:00 07:00 Intake Total 250 ml 810 ml 500 ml Output Total 820 ml Balance 250 ml -10 ml 500 ml Exam General: Morbidly obese build 55 year-old male lying in bed in mild respiratory distress. HEENT: Normocephalic, atraumatic. Eyes: Anicteric sclerae, conjunctivae clear. ENT: Nasal septum midline, oral mucosa moist. Neck: Supple, no JVD noticed. Respiratory: Bilaterally diminished breath sounds. No use of accessory muscles of respiration. Expiratory wheezing. Cardiovascular: S1, S2 heard. No murmurs or gallops. Abdomen: Soft, nontender, and protuberant. Bowel sounds positive in all 4 quadrants. Genitourinary: Deferred. Extremities: No cyanosis, no clubbing. Bilateral lower extremity 2+ edema. Peripheral pulses palpable. Neurologic: Cranial nerves II through XII grossly intact. The patient is awake, alert, and oriented. Skin: Normal skin turgor. No skin rashes. Results Result Diagram: 07/12/16 0611 07/12/16 0611 Results 24 hrs Laboratory Tests Test 07/11/16 16:30 07/11/16 17:35 07/11/16 21:20 07/12/16 06:11 Vancomycin Level Trough 9.4 L Bedside Glucose 70 78 Anion Gap 15 Basophils # 0.0 Basophils % 0.1 Blood Morphology Comment Blood Urea Nitrogen 28 H Calcium Level 8.2 L Carbon Dioxide Level 31 Chloride Level 100 Creatinine 1.45 H Eosinophils # 0.1 Eosinophils % 1.4 Glucose Level 188 # Hematocrit 43.4 Hemoglobin 14.4 Lymphocytes # 1.7 Lymphocytes % 18.7 Magnesium Level 1.6 L Mean Corpuscular Hemoglobin 26.3 L Mean Corpuscular Hemoglobin Concent 33.3 Mean Corpuscular Volume 79.1 L Mean Platelet Volume 8.3 Monocytes # 0.9 Monocytes % 9.4 Neutrophils # 6.4 Neutrophils % 70.4 Nucleated Red Blood Cells # 0.0 Nucleated Red Blood Cells % 0.0 Phosphorus Level 3.3 Platelet Count 243 Potassium Level 4.1 Red Blood Count 5.49 Red Cell Distribution Width 17.4 H Sodium Level 142 White Blood Count 9.0 Test 07/12/16 08:01 07/12/16 11:47 Bedside Glucose 182 187 Medications Medications Current Medications Aspirin (Aspirin) 81 mg DAILY PO Last administered on 07/12/16 08:54; Admin Dose 81 MG; Start 07/03/16 at 09:00 Carvedilol (Coreg) 6.25 mg BID PO Last administered on 07/12/16 08:54; Admin Dose 6.25 MG; Start 07/02/16 at 21:00 Clopidogrel Bisulfate (plaVIX) 75 mg DAILY PO Last administered on 07/12/16 08:54; Admin Dose 75 MG; Start 07/03/16 at 09:00 Hydralazine HCl (Apresoline) 10 mg Q8 PO Last administered on 07/12/16 06:35 ; Admin Dose 10 MG; Start 07/02/16 at 14:00 Isosorbide Dinitrate (Isordil) 20 mg TID PO Last administered on 07/12/16 12: 05; Admin Dose 20 MG; Start 07/02/16 at 13:00 Ranolazine (Ranexa) 1,000 mg Q12 PO Last administered on 07/12/16 08:53; Admin Dose 1,000 MG; Start 07/02/16 at 21:00 Atorvastatin Calcium (Lipitor) 80 mg HS PO Last administered on 07/03/16 21: 21; Admin Dose 80 MG; Start 07/02/16 at 21:00; Status Future Hold Ondansetron HCl (Zofran Inj) 4 mg Q6H PRN IV NAUSEA AND/OR VOMITING Last administered on 07/11/16 13:10; Admin Dose 4 MG; Start 07/02/16 at 11:30 Acetaminophen (Tylenol Tab) 650 mg Q6H PRN PO PAIN LEVEL 1-3 OR FEVER Last administered on 07/05/16 21:52; Admin Dose 650 MG; Start 07/02/16 at 11:30 Acetaminophen (Tylenol Supp) 650 mg Q6H PRN [place] PAIN LEVEL 1-3 OR FEVER; Start 07/02/16 at 11:30 Acetaminophen/ Hydrocodone Bitart ([place] (5/325)) 1 tab Q6H PRN PO MODERATE PAIN LEVEL 4-6 Last administered on 07/07/16at 09:11; Admin Dose 1 TAB; Start 07/02/16 at 11:30 Docusate Sodium (Colace) 100 mg Q12H PRN PO CONSTIPATION; Start 07/02/16 at 11 :30 Famotidine (Pepcid) 20 mg Q12 PO Last administered on 07/12/16at 08:54; Admin Dose 20 MG; Start 07/02/16 at 21:00 Heparin Sodium (Porcine) (Heparin (5000 Units/0.5 ml)) 5,000 unit Q12 SC Last administered on 07/12/16at 08:53; Admin Dose 5,000 UNIT; Start 07/02/16 at 21: 00 Miscellaneous Information 1 ea NOTE XX ; Start 07/02/16 at 12:00 Glucose (Glutose) 15 gm Q15M PRN PO DECREASED GLUCOSE; Start 07/02/16 at 12:00 Glucose (Glutose) 22.5 gm Q15M PRN PO DECREASED GLUCOSE; Start 07/02/16 at 12: 00 Dextrose (D50w Syringe) 25 ml Q15M PRN IV DECREASED GLUCOSE; Start 07/02/16 at 12:00 Dextrose (D50w Syringe) 50 ml Q15M PRN IV DECREASED GLUCOSE; Start 07/02/16 at 12:00 Glucagon (Glucagen) 1 mg Q15M PRN IM DECREASED GLUCOSE; Start 07/02/16 at 12: 00 Glucose (Glutose) 15 gm Q15M PRN BUCCAL DECREASED GLUCOSE; Start 07/02/16 at 12:00 Hydralazine HCl 10 mg 10 mg Q6H PRN IV SBP>160; Start 07/02/16 at 15:00 Sodium Chloride 1,000 ml @ 40 mls/hr Q24H IV Last administered on 07/12/16at 06:36; Admin Dose 40 MLS/HR; Start 07/02/16 at 15:00 Azithromycin 250 ml @ 250 mls/hr Q24H IVPB Last administered on 07/11/16at 17: 32; Admin Dose 250 MLS/HR; Start 07/04/16 at 17:00 Ceftriaxone Sodium (Rocephin) 50 ml @ 100 mls/hr Q24H IVPB Last administered on 07/11/16at 16:16; Admin Dose 100 MLS/HR; Start 07/04/16 at 16:00 Fish Oil (Fish Oil) 1,000 mg BID PO Last administered on 07/12/16 08:54; Admin Dose 1,000 MG; Start 07/04/16 at 21:00 Lorazepam (Ativan) 1 mg Q6H PRN IV anxiety; Start 07/05/16 at 14:00 Zolpidem Tartrate (Ambien) 5 mg HS PRN PO INSOMNIA; Start 07/05/16 at 14:00 Lorazepam (Ativan) 1 mg Q6H PRN IM anxiety; Start 07/05/16 at 15:00 Alprazolam (Xanax) 1 mg TID PRN PO ANXIETY Last administered on 07/05/16 21: 52; Admin Dose 1 MG; Start 07/05/16 at 21:00 Diagnostic Test (Pha) (Accucheck) 1 ea 02 XX Last administered on 07/09/16 02 :57; Admin Dose 1 EA; Start 07/08/16 at 02:00 Hydromorphone HCl (Dilaudid) 0.5 mg Q4H PRN IV PAIN Last administered on at 09:08; Admin Dose 0.5 MG; Start 07/07/16 at 13:00 Oxycodone/ Acetaminophen (Percocet (5/ 325)) 1 tab Q4H PRN PO PAIN Last administered on 07/09/16at 08:18; Admin Dose 1 TAB; Start 07/07/16 at 13:00 Guaifenesin/ Codeine Phosphate (Robitussin Ac Liquid Cup) 5 ml Q6H PRN PO COUGH Last administered on 07/10/16at 14:35; Admin Dose 5 ML; Start 07/10/16 at 14:30 Insulin Glargine 30 unit 30 unit HS SC ; Start 07/11/16 at 21:00 Vancomycin HCl 1.75 gm/Sodium Chloride 500 ml @ 125 mls/hr Q24H IVPB Last administered on 07/11/16 22:15; Admin Dose 125 MLS/HR; Start 07/11/16 at 20: 00 Magnesium Sulfate (Magnesium Sulfate 2 Gm/50 ml) 50 ml @ 25 mls/hr ONCE IVPB ; Start 07/12/16 at 13:00; Stop 07/12/16 at 14:59 ROMANA DIAZ NP Jul 12, 2016 13:22
--- NOTE | 2016-07-12 15:20 | CONS ---
Date/Time of Note Date/Time of Note DATE: 07/12/16 TIME: 15:19 Consult Date/Type/Reason Admit Date/Time Jul 02, 2016 at 09:58 Type of Consultation: pulmonary Ordering Provider: NARENDRA CHAWLA MD Subjective Patient stable this morning states is no change in his respiratory status Objective Vital Signs Date Time Temp Pulse Resp B/P Pulse Ox O2 Delivery O2 Flow Rate FiO2 07/12/16 12:04 83 07/12/16 11:49 97.6 20 135/72 96 07/12/16 08:01 Nasal Cannula 2.0 07/10/16 21:50 28 Intake and Output 07/11/16 07/11/16 07/12/16 14:59 22:59 06:59 Intake Total 250 ml 810 ml 500 ml Output Total 820 ml Balance 250 ml -10 ml 500 ml Results/Medications Result Diagram: 07/12/16 0611 07/12/16 0611 Results 24 hrs Laboratory Tests Test 07/11/16 16:30 07/11/16 17:35 07/11/16 21:20 07/12/16 06:11 Vancomycin Level Trough 9.4 L Bedside Glucose 70 78 Anion Gap 15 Basophils # 0.0 Basophils % 0.1 Blood Morphology Comment Blood Urea Nitrogen 28 H Calcium Level 8.2 L Carbon Dioxide Level 31 Chloride Level 100 Creatinine 1.45 H Eosinophils # 0.1 Eosinophils % 1.4 Glucose Level 188 # Hematocrit 43.4 Hemoglobin 14.4 Lymphocytes # 1.7 Lymphocytes % 18.7 Magnesium Level 1.6 L Mean Corpuscular Hemoglobin 26.3 L Mean Corpuscular Hemoglobin Concent 33.3 Mean Corpuscular Volume 79.1 L Mean Platelet Volume 8.3 Monocytes # 0.9 Monocytes % 9.4 Neutrophils # 6.4 Neutrophils % 70.4 Nucleated Red Blood Cells # 0.0 Nucleated Red Blood Cells % 0.0 Phosphorus Level 3.3 Platelet Count 243 Potassium Level 4.1 Red Blood Count 5.49 Red Cell Distribution Width 17.4 H Sodium Level 142 White Blood Count 9.0 Test 07/12/16 08:01 07/12/16 11:47 Bedside Glucose 182 187 Medications Current Medications Aspirin (Aspirin) 81 mg DAILY PO Last administered on 07/12/16at 08:54; Admin Dose 81 MG; Start 07/03/16 at 09:00 Carvedilol (Coreg) 6.25 mg BID PO Last administered on 07/12/16 08:54; Admin Dose 6.25 MG; Start 07/02/16 at 21:00 Clopidogrel Bisulfate (plaVIX) 75 mg DAILY PO Last administered on 07/12/16 08:54; Admin Dose 75 MG; Start 07/03/16 at 09:00 Hydralazine HCl (Apresoline) 10 mg Q8 PO Last administered on 07/12/16 13:33 ; Admin Dose 10 MG; Start 07/02/16 at 14:00 Isosorbide Dinitrate (Isordil) 20 mg TID PO Last administered on 07/12/16 12: 05; Admin Dose 20 MG; Start 07/02/16 at 13:00 Ranolazine (Ranexa) 1,000 mg Q12 PO Last administered on 07/12/16 08:53; Admin Dose 1,000 MG; Start 07/02/16 at 21:00 Atorvastatin Calcium (Lipitor) 80 mg HS PO Last administered on 07/03/16 21: 21; Admin Dose 80 MG; Start 07/02/16 at 21:00; Status Future Hold Ondansetron HCl (Zofran Inj) 4 mg Q6H PRN IV NAUSEA AND/OR VOMITING Last administered on 07/11/16 13:10; Admin Dose 4 MG; Start 07/02/16 at 11:30 Acetaminophen (Tylenol Tab) 650 mg Q6H PRN PO PAIN LEVEL 1-3 OR FEVER Last administered on 07/05/16 21:52; Admin Dose 650 MG; Start 07/02/16 at 11:30 Acetaminophen (Tylenol Supp) 650 mg Q6H PRN [place] PAIN LEVEL 1-3 OR FEVER; Start 07/02/16 at 11:30 Acetaminophen/ Hydrocodone Bitart ([employer] (5/325)) 1 tab Q6H PRN PO MODERATE PAIN LEVEL 4-6 Last administered on 07/07/16 09:11; Admin Dose 1 TAB; Start 07/02/16 at 11:30 Docusate Sodium (Colace) 100 mg Q12H PRN PO CONSTIPATION; Start 07/02/16 at 11 :30 Famotidine (Pepcid) 20 mg Q12 PO Last administered on 07/12/16 08:54; Admin Dose 20 MG; Start 07/02/16 at 21:00 Heparin Sodium (Porcine) (Heparin (5000 Units/0.5 ml)) 5,000 unit Q12 SC Last administered on 07/12/16at 08:53; Admin Dose 5,000 UNIT; Start 07/02/16 at 21: 00 Miscellaneous Information 1 ea NOTE XX ; Start 07/02/16 at 12:00 Glucose (Glutose) 15 gm Q15M PRN PO DECREASED GLUCOSE; Start 07/02/16 at 12:00 Glucose (Glutose) 22.5 gm Q15M PRN PO DECREASED GLUCOSE; Start 07/02/16 at 12: 00 Dextrose (D50w Syringe) 25 ml Q15M PRN IV DECREASED GLUCOSE; Start 07/02/16 at 12:00 Dextrose (D50w Syringe) 50 ml Q15M PRN IV DECREASED GLUCOSE; Start 07/02/16 at 12:00 Glucagon (Glucagen) 1 mg Q15M PRN IM DECREASED GLUCOSE; Start 07/02/16 at 12: 00 Glucose (Glutose) 15 gm Q15M PRN BUCCAL DECREASED GLUCOSE; Start 07/02/16 at 12:00 Hydralazine HCl 10 mg 10 mg Q6H PRN IV SBP>160; Start 07/02/16 at 15:00 Sodium Chloride 1,000 ml @ 40 mls/hr Q24H IV Last administered on 07/12/16at 06:36; Admin Dose 40 MLS/HR; Start 07/02/16 at 15:00 Azithromycin 250 ml @ 250 mls/hr Q24H IVPB Last administered on 07/11/16at 17: 32; Admin Dose 250 MLS/HR; Start 07/04/16 at 17:00 Ceftriaxone Sodium (Rocephin) 50 ml @ 100 mls/hr Q24H IVPB Last administered on 07/11/16at 16:16; Admin Dose 100 MLS/HR; Start 07/04/16 at 16:00 Fish Oil (Fish Oil) 1,000 mg BID PO Last administered on 07/12/16at 08:54; Admin Dose 1,000 MG; Start 07/04/16 at 21:00 Lorazepam (Ativan) 1 mg Q6H PRN IV anxiety; Start 07/05/16 at 14:00 Zolpidem Tartrate (Ambien) 5 mg HS PRN PO INSOMNIA; Start 07/05/16 at 14:00 Lorazepam (Ativan) 1 mg Q6H PRN IM anxiety; Start 07/05/16 at 15:00 Alprazolam (Xanax) 1 mg TID PRN PO ANXIETY Last administered on 07/05/16at 21: 52; Admin Dose 1 MG; Start 07/05/16 at 21:00 Diagnostic Test (Pha) (Accucheck) 1 ea 02 XX Last administered on 07/09/16at 02 :57; Admin Dose 1 EA; Start 07/08/16 at 02:00 Hydromorphone HCl (Dilaudid) 0.5 mg Q4H PRN IV PAIN Last administered on at 15:15; Admin Dose 0.5 MG; Start 07/07/16 at 13:00 Oxycodone/ Acetaminophen (Percocet (5/ 325)) 1 tab Q4H PRN PO PAIN Last administered on 07/09/16at 08:18; Admin Dose 1 TAB; Start 07/07/16 at 13:00 Guaifenesin/ Codeine Phosphate (Robitussin Ac Liquid Cup) 5 ml Q6H PRN PO COUGH Last administered on 07/10/16at 14:35; Admin Dose 5 ML; Start 07/10/16 at 14:30 Insulin Glargine 30 unit 30 unit HS SC ; Start 07/11/16 at 21:00 Vancomycin HCl/ Sodium Chloride (Vancocin/NS) 500 ml @ 125 mls/hr Q24H IVPB Last administered on 07/11/16at 22:15; Admin Dose 125 MLS/HR; Start 07/11/16 at 20:00 Assessment/Plan Chief Complaint/Hosp Course Assessment 1. Right upper lobe pneumonia, differential does include bronchoalveolar lung CA 2. History of tobacco use 3. Underlying emphysema 4. Hypernatremia Plan 1. Continue antibiotics 2. Repeat chest x-ray in a.m. 3. Chest x-ray shows no improvement despite current antibiotics patient will likely need bronchoscopy and/or CT-guided lung biopsy Discussed with patient who agrees with plan of care Problems: MAXX APPLE MD, [facility] Jul 12, 2016 15:20
[2016-07-12] MEDS: CEFTRIAXONE 1 GM/50 ML (PMX) 50 ML IVPB SCH (15:52)
--- NOTE | 2016-07-12 16:37 | CONS ---
Date/Time of Note Date/Time of Note DATE: 07/12/16 TIME: 16:36 Assessment/Plan Assessment/Plan Chief Complaint/Hosp Course IMPRESSION: 1. The patient has pneumonia./EMPHYSEMA 2. jovani w ckd stable 3. Underlying chronic kidney disease. 4. Diabetes mellitus. 5. Hypertension. 6. Anemia. 7. EDEMA 8. Obesity. 9. Dyslipidemia. 10 hypernatremia on diuretic BETTER 11 leg edema+ plan f/u bmp LASIX Problems: Consultation Date/Type/Reason Admit Date/Time Jul 02, 2016 at 09:58 Type of Consultation: RENAL Referring Provider: NARENDRA CHAWLA MD Exam/Review of Systems Vital Signs Vitals Vital Signs Date Time Temp Pulse Resp B/P Pulse Ox O2 Delivery O2 Flow Rate FiO2 07/12/16 16:04 80 07/12/16 15:35 97.6 20 144/73 96 07/12/16 08:01 Nasal Cannula 2.0 07/10/16 21:50 28 Intake and Output 07/11/16 07/11/16 07/12/16 14:59 22:59 06:59 Intake Total 250 ml 810 ml 500 ml Output Total 820 ml Balance 250 ml -10 ml 500 ml Exam Respiratory: diminished breath sounds Cardiovascular: regular rate and rhythm Gastrointestinal: soft Musculoskeletal: nl extremities to inspection Extremities: edema (+) Results Result Diagram: 07/12/16 0611 07/12/16 0611 Results 24 hrs Laboratory Tests Test 07/11/16 17:35 07/11/16 21:20 07/12/16 06:11 07/12/16 08:01 Bedside Glucose 70 78 182 Anion Gap 15 Basophils # 0.0 Basophils % 0.1 Blood Morphology Comment Blood Urea Nitrogen 28 H Calcium Level 8.2 L Carbon Dioxide Level 31 Chloride Level 100 Creatinine 1.45 H Eosinophils # 0.1 Eosinophils % 1.4 Glucose Level 188 # Hematocrit 43.4 Hemoglobin 14.4 Lymphocytes # 1.7 Lymphocytes % 18.7 Magnesium Level 1.6 L Mean Corpuscular Hemoglobin 26.3 L Mean Corpuscular Hemoglobin Concent 33.3 Mean Corpuscular Volume 79.1 L Mean Platelet Volume 8.3 Monocytes # 0.9 Monocytes % 9.4 Neutrophils # 6.4 Neutrophils % 70.4 Nucleated Red Blood Cells # 0.0 Nucleated Red Blood Cells % 0.0 Phosphorus Level 3.3 Platelet Count 243 Potassium Level 4.1 Red Blood Count 5.49 Red Cell Distribution Width 17.4 H Sodium Level 142 White Blood Count 9.0 Test 07/12/16 11:47 Bedside Glucose 187 Medications Medications Current Medications Aspirin (Aspirin) 81 mg DAILY PO Last administered on 07/12/16 08:54; Admin Dose 81 MG; Start 07/03/16 at 09:00 Carvedilol (Coreg) 6.25 mg BID PO Last administered on 07/12/16 08:54; Admin Dose 6.25 MG; Start 07/02/16 at 21:00 Clopidogrel Bisulfate (plaVIX) 75 mg DAILY PO Last administered on 07/12/16 08:54; Admin Dose 75 MG; Start 07/03/16 at 09:00 Hydralazine HCl (Apresoline) 10 mg Q8 PO Last administered on 07/12/16 13:33 ; Admin Dose 10 MG; Start 07/02/16 at 14:00 Isosorbide Dinitrate (Isordil) 20 mg TID PO Last administered on 07/12/16 12: 05; Admin Dose 20 MG; Start 07/02/16 at 13:00 Ranolazine (Ranexa) 1,000 mg Q12 PO Last administered on 07/12/16 08:53; Admin Dose 1,000 MG; Start 07/02/16 at 21:00 Atorvastatin Calcium (Lipitor) 80 mg HS PO Last administered on 07/03/16 21: 21; Admin Dose 80 MG; Start 07/02/16 at 21:00; Status Future Hold Ondansetron HCl (Zofran Inj) 4 mg Q6H PRN IV NAUSEA AND/OR VOMITING Last administered on 07/11/16 13:10; Admin Dose 4 MG; Start 07/02/16 at 11:30 Acetaminophen (Tylenol Tab) 650 mg Q6H PRN PO PAIN LEVEL 1-3 OR FEVER Last administered on 07/05/16 21:52; Admin Dose 650 MG; Start 07/02/16 at 11:30 Acetaminophen (Tylenol Supp) 650 mg Q6H PRN [place] PAIN LEVEL 1-3 OR FEVER; Start 07/02/16 at 11:30 Acetaminophen/ Hydrocodone Bitart ([place] (5/325)) 1 tab Q6H PRN PO MODERATE PAIN LEVEL 4-6 Last administered on 07/07/16at 09:11; Admin Dose 1 TAB; Start 07/02/16 at 11:30 Docusate Sodium (Colace) 100 mg Q12H PRN PO CONSTIPATION; Start 07/02/16 at 11 :30 Famotidine (Pepcid) 20 mg Q12 PO Last administered on 07/12/16at 08:54; Admin Dose 20 MG; Start 07/02/16 at 21:00 Heparin Sodium (Porcine) (Heparin (5000 Units/0.5 ml)) 5,000 unit Q12 SC Last administered on 07/12/16at 08:53; Admin Dose 5,000 UNIT; Start 07/02/16 at 21: 00 Miscellaneous Information 1 ea NOTE XX ; Start 07/02/16 at 12:00 Glucose (Glutose) 15 gm Q15M PRN PO DECREASED GLUCOSE; Start 07/02/16 at 12:00 Glucose (Glutose) 22.5 gm Q15M PRN PO DECREASED GLUCOSE; Start 07/02/16 at 12: 00 Dextrose (D50w Syringe) 25 ml Q15M PRN IV DECREASED GLUCOSE; Start 07/02/16 at 12:00 Dextrose (D50w Syringe) 50 ml Q15M PRN IV DECREASED GLUCOSE; Start 07/02/16 at 12:00 Glucagon (Glucagen) 1 mg Q15M PRN IM DECREASED GLUCOSE; Start 07/02/16 at 12: 00 Glucose (Glutose) 15 gm Q15M PRN BUCCAL DECREASED GLUCOSE; Start 07/02/16 at 12:00 Hydralazine HCl 10 mg 10 mg Q6H PRN IV SBP>160; Start 07/02/16 at 15:00 Sodium Chloride 1,000 ml @ 40 mls/hr Q24H IV Last administered on 07/12/16at 06:36; Admin Dose 40 MLS/HR; Start 07/02/16 at 15:00 Azithromycin 250 ml @ 250 mls/hr Q24H IVPB Last administered on 07/11/16at 17: 32; Admin Dose 250 MLS/HR; Start 07/04/16 at 17:00 Ceftriaxone Sodium (Rocephin) 50 ml @ 100 mls/hr Q24H IVPB Last administered on 07/12/16at 15:52; Admin Dose 100 MLS/HR; Start 07/04/16 at 16:00 Fish Oil (Fish Oil) 1,000 mg BID PO Last administered on 07/12/16 08:54; Admin Dose 1,000 MG; Start 07/04/16 at 21:00 Lorazepam (Ativan) 1 mg Q6H PRN IV anxiety; Start 07/05/16 at 14:00 Zolpidem Tartrate (Ambien) 5 mg HS PRN PO INSOMNIA; Start 07/05/16 at 14:00 Lorazepam (Ativan) 1 mg Q6H PRN IM anxiety; Start 07/05/16 at 15:00 Alprazolam (Xanax) 1 mg TID PRN PO ANXIETY Last administered on 07/05/16at 21: 52; Admin Dose 1 MG; Start 07/05/16 at 21:00 Diagnostic Test (Pha) (Accucheck) 1 ea 02 XX Last administered on 07/09/16at 02 :57; Admin Dose 1 EA; Start 07/08/16 at 02:00 Hydromorphone HCl (Dilaudid) 0.5 mg Q4H PRN IV PAIN Last administered on at 15:15; Admin Dose 0.5 MG; Start 07/07/16 at 13:00 Oxycodone/ Acetaminophen (Percocet (5/ 325)) 1 tab Q4H PRN PO PAIN Last administered on 07/09/16at 08:18; Admin Dose 1 TAB; Start 07/07/16 at 13:00 Guaifenesin/ Codeine Phosphate (Robitussin Ac Liquid Cup) 5 ml Q6H PRN PO COUGH Last administered on 07/10/16at 14:35; Admin Dose 5 ML; Start 07/10/16 at 14:30 Insulin Glargine 30 unit 30 unit HS SC ; Start 07/11/16 at 21:00 Vancomycin HCl/ Sodium Chloride (Vancocin/NS) 500 ml @ 125 mls/hr Q24H IVPB Last administered on 07/11/16at 22:15; Admin Dose 125 MLS/HR; Start 07/11/16 at 20:00 ROBB ALBERT MD Jul 12, 2016 16:37
[2016-07-12] MEDS: AZITHROMYCIN 500MG/NS (PMX) 250 ML IVPB SCH (17:08)
[2016-07-12] MEDS: OXYCODONE/ACETAMINOPHEN (5/325) TAB PO PRN (19:39)
--- NOTE | 2016-07-12 20:07 | PN ---
DATE: 07/12/2016 SUBJECTIVE: No acute changes overnight. The patient is awake, sitting comfortably at the edge of t he bed, eating lunch. He is comfortable on 2 L nasal cannula. No fevers. WBC 9, platelets 243. No shift, no bands. BUN 28, creatinine 1.45. MICROBIOLOGY: Sputum culture on 07/03 grew Staphylococcus aureus. Influenza swab was negative. Ur ine culture negative. Stool for C diff negative. ANTIMICROBIALS: The patient is on: 1. Vancomycin. 2. Zithromax. 3. Rocephin, day #9. Vancomycin was added yesterday. PHYSICAL EXAMINATION: GENERAL: This is an obese, well-developed middle-aged Citizen Of [place]-speaking man who is alert, in no dist ress. HEENT: Head atraumatic, normocephalic. Sclerae anicteric. Buccal mucosa pink. NECK: Supple, trachea midline. CHEST: Rise symmetrical. Breath sounds diminished to bases. HEART: S1, S2. ABDOMEN: Soft. Bowel tones present. EXTREMITIES: No cyanosis. ASSESSMENT: 1. Acute on chronic respiratory failure. 2. Right upper lobe consolidation with parapneumonic effusion consistent with pneumonia. 3. Obesity. 4. Acute renal failure. 5. Emphysema. PLAN: The patient remains stable. We are going to continue vancomycin, change Zithromax and Roceph in to Levaquin, continue on IV vancomycin for now. Repeat sputum culture, and as per pulmonary ismael mmendations, patient may require bronchoscopy and CT-guided biopsy if no improvement. Dictated By: BONNIE MONTILLA [employer]NIS CHRISTIAN/GABY Conf#: [id number] DID#: [id number]
[2016-07-12] MEDS: VANCOMYCIN 1.75 GM in NS 500 ML IVPB SCH (20:34)
[2016-07-12] MEDS: CEFEPIME 1GM/50 ML (PMX) 50 ML IVPB SCH (20:34)
[2016-07-12] MEDS: INSULIN GLARGINE [LANtus] 3 ML PEN SC SCH (22:40)
[2016-07-13] VITALS (9 sets, daily range): BP systolic 119–183; BP diastolic 69–87; PULSE 77–94; RESP 18–20
[2016-07-13] MEDS: OXYCODONE/ACETAMINOPHEN (5/325) TAB PO PRN (00:13)
[2016-07-13] MEDS: ALBUTEROL/IPRATROPIUM (NEB) 3 ML AMP HHN SCH ×6 (00:47→22:06)
[2016-07-13] MEDS: ACCUCHECK XX SCH (03:33)
[2016-07-13] MEDS: LEVOFLOXACIN 500 MG TAB PO SCH (05:55)
[2016-07-13] MEDS: FUROSEMIDE 20 MG INJ IV SCH ×2 (05:55→17:17)
[2016-07-13 07:21] LABS: BASOPHILS % 0.4 % (0.0-2.0); EOSINOPHILS # 0.1 10^3/ul (0.0-0.5); EOSINOPHILS % 1.1 % (0.0-7.0); HEMOGLOBIN 14.7 g/dl (14.0-18.0); LYMPHOCYTES # 1.7 10^3/ul (0.8-2.9); LYMPHOCYTES % 18.7 % (15.0-51.0); MEAN CORPUSCULAR HEMOGLOBIN 25.9 pg (29.0-33.0); MEAN CORPUSCULAR HGB CONC 32.7 g/dl (32.0-37.0); MEAN CORPUSCULAR VOLUME 79.3 fl (82.0-101.0); MEAN PLATELET VOLUME 8.1 fl (7.4-10.4); MONOCYTE # 0.8 10^3/ul (0.3-0.9); MONOCYTES % 9.3 % (0.0-11.0); NEUTROPHIL # 6.4 10^3/ul (1.6-7.5); NEUTROPHILS % 70.5 % (39.0-77.0); PLATELET COUNT 229 10^3/UL (140-440); RED BLOOD COUNT 5.68 10^6/ul (4.70-6.10); RED CELL DISTRIBUTION WIDTH 17.5 % (11.5-14.5); UNCORRECTED WBC 9.1 10^3/ul (4.8-10.8); WHITE BLOOD COUNT 9.1 10^3/ul (4.8-10.8)
[2016-07-13 07:29] LABS: CONDITION 1; LH ANALYZER COMMENTS 1
[2016-07-13 07:31] LABS: ALBUMIN 2.9 g/dl (3.3-4.9)
[2016-07-13 07:32] LABS: POTASSIUM 3.5 mmol/L (3.5-5.1)
[2016-07-13 07:34] LABS: BILIRUBIN,INDIRECT 0.3 mg/dl (0-1.1); BILIRUBIN,TOTAL 0.3 mg/dl (0.2-1.3); CREATININE 1.52 mg/dl (0.61-1.24)
[2016-07-13 07:35] LABS: ALBUMIN/GLOBULIN RATIO 0.87; CALCIUM 8.4 mg/dl (8.4-10.2); TOTAL PROTEIN 6.2 g/dl (6.1-8.1)
[2016-07-13 07:37] LABS: MAGNESIUM 1.9 mg/dl (1.7-2.5)
[2016-07-13] MEDS: INSULIN ASPART [NOVOLOG] 3 ML PEN SC SCH ×7 (07:57→21:21)
[2016-07-13] MEDS: FISH OIL 1,000 MG CAP PO SCH ×2 (08:56→20:25)
[2016-07-13] MEDS: HEPARIN 5,000 UNIT/0.5 ML SYG SC SCH ×2 (08:56→20:27)
[2016-07-13] MEDS: RANOLAZINE (SR) 500 MG TAB PO SCH ×2 (08:57→20:25)
[2016-07-13] MEDS: ASPIRIN 81 MG TAB PO SCH (08:57)
[2016-07-13] MEDS: CLOPIDOGREL 75 MG TAB PO SCH (08:57)
[2016-07-13] MEDS: ISOSORBIDE DINITRATE 20 MG TAB PO SCH ×3 (08:57→20:25)
[2016-07-13] MEDS: FAMOTIDINE 20 MG TAB PO SCH ×2 (08:57→20:25)
[2016-07-13] MEDS: CEFEPIME 1GM/50 ML (PMX) 50 ML IVPB SCH ×2 (09:05→21:22)
--- NOTE | 2016-07-13 09:05 | RADRPT ---
PROCEDURE: XR Chest. CLINICAL INDICATION: Shortness of breath. TECHNIQUE: Single frontal view. COMPARISON: 07/10/2016. FINDINGS: There is consolidation in the right upper lobe consistent with pneumonia, slightly improved. The uma ngs are otherwise clear. The heart is mildly enlarged. There is no pleural effusion. There is no pneumothorax. IMPRESSION: 1. Right upper lobe consolidation consistent with pneumonia, slightly improved. 2. Mild cardiomegaly. RPTAT: QQ .Jimmy Carpenter MD, MD Date Time Electronically viewed and signed by .Jimmy Carpenter MD, MD on 07/13/2016 09:04 .R/
--- NOTE | 2016-07-13 09:53 | PN ---
Date/Time of Note Date/Time of Note DATE: 07/13/16 TIME: 09:52 Assessment/Plan VTE Prophylaxis VTE Prophylaxis Intervention: heparin Lines/Catheters IV [facility]from [facility] Peripheral IV Urinary Cath still in place: No Assessment/Plan Chief Complaint/Hosp Course 1. Right upper lobe Pneumonia. Legionella pneumonia. Chest x-ray showing persistent right upper lobe infiltrate. Sputum CS with staph aureus. ->Continue Rocephin/Zithromax/Vancomycin. Infectious diseases following. 2. COPD exacerbation with bronchospasm. Improved. ->.Pulmonary on board.Continue bronchodilators. S/P steroids. 3. Sepsis secondary to pneumonia: Resolving. Will monitor. 4. Acute kidney injury on chronic kidney disease. SHERYL likely secondary to sepsis vs diuretic induced. Creatinine trending up. -> Nephrology on board. Monitor renal function closely and avoid nephrotoxins as much as possible. 5. Essential hypertension: Stable. On Isordil / hydralazine / Coreg. 6. Ischemic cardiomyopathy. Continue BBs. Unable to use ACEIs because of worsening renal function. 7. Coronary artery disease, status post multiple percutaneous coronary interventions: On ASA/ Plavix/ Statin / BB / hydralazine/nitrates. 8. Congestive heart failure exacerbation. Acute on chronic. Systolic dysfunction. . Continue medical management with Coreg, Imdur, and aspirin. Diuretics as per nephrology. 9. Hyperglycemia with Type 2 diabetes. A1C 9.8: non compliance Continue accu checks, ISS, pre-meals and Lantus to 30 units. 10. Dyslipidemia. Hold Lipitor due to liver fxn. Continue Fish oil. May need to change to low dose Zocor up on DC with LFT monitoring. 11. Hepatomegaly with Transaminase elevation-likely concurrent illness. Monitor closely. Avoid hepatotoxins as much as possible. 12. Obesity. Weight reduction advised 13. Hx of Nicotine abuse. Patient denied this before and now says he was a smoker. DVT prophylaxis: Heparin PUD prophylaxis: Pepcid PLAN: Continue antibiotics as per infectious diseases. Await further input from consultants. Case discussed with . Problems: Subjective 24 Hr Interval Summary Free Text/Dictation Remains afebrile. Exam/Review of Systems Vital Signs Vitals Vital Signs Date Time Temp Pulse Resp B/P Pulse Ox O2 Delivery O2 Flow Rate FiO2 12/30/16 08:01 94 07/13/16 04:00 98.0 20 119/72 96 Nasal Cannula 2.0 07/10/16 21:50 28 Intake and Output 07/12/16 07/12/16 07/13/16 15:00 23:00 07:00 Intake Total 720 ml 200 ml Output Total 900 ml 750 ml Balance -180 ml -550 ml Exam General: Morbidly obese build 55 year-old male lying in bed in mild respiratory distress. HEENT: Normocephalic, atraumatic. Eyes: Anicteric sclerae, conjunctivae clear. ENT: Nasal septum midline, oral mucosa moist. Neck: Supple, no JVD noticed. Respiratory: Bilaterally diminished breath sounds. No use of accessory muscles of respiration. Rales on the right side. Cardiovascular: S1, S2 heard. No murmurs or gallops. Abdomen: Soft, nontender, and protuberant. Bowel sounds positive in all 4 quadrants. Genitourinary: Deferred. Extremities: No cyanosis, no clubbing. Bilateral lower extremity 2+ edema. Peripheral pulses palpable. Neurologic: Cranial nerves II through XII grossly intact. The patient is awake, alert, and oriented. Skin: Normal skin turgor. No skin rashes. Results Result Diagram: 07/13/16 0640 07/13/16 0640 Results 24 hrs Laboratory Tests Test 07/12/16 11:47 07/12/16 16:46 07/12/16 22:37 07/13/16 02:38 Bedside Glucose 187 127 160 128 Test 07/13/16 06:40 07/13/16 07:24 Alanine Aminotransferase (ALT/SGPT) 95 H Albumin 2.9 L Albumin/Globulin Ratio 0.87 Alkaline Phosphatase 162 H Anion Gap 12 Aspartate Amino Transf (AST/SGOT) 58 H Basophils # 0.0 Basophils % 0.4 Blood Morphology Comment Blood Urea Nitrogen 25 H Calcium Level 8.4 Carbon Dioxide Level 33 H Chloride Level 101 Creatinine 1.52 H Direct Bilirubin 0.00 Eosinophils # 0.1 Eosinophils % 1.1 Globulin 3.30 H Glucose Level 98 # Hematocrit 45.0 Hemoglobin 14.7 Indirect Bilirubin 0.3 Lymphocytes # 1.7 Lymphocytes % 18.7 Magnesium Level 1.9 Mean Corpuscular Hemoglobin 25.9 L Mean Corpuscular Hemoglobin Concent 32.7 Mean Corpuscular Volume 79.3 L Mean Platelet Volume 8.1 Monocytes # 0.8 Monocytes % 9.3 Neutrophils # 6.4 Neutrophils % 70.5 Nucleated Red Blood Cells # 0.0 Nucleated Red Blood Cells % 0.0 Phosphorus Level 3.0 Platelet Count 229 Potassium Level 3.5 Red Blood Count 5.68 Red Cell Distribution Width 17.5 H Sodium Level 142 Total Bilirubin 0.3 Total Protein 6.2 White Blood Count 9.1 Bedside Glucose 102 Medications Medications Current Medications Aspirin (Aspirin) 81 mg DAILY PO Last administered on 07/13/16 08:57; Admin Dose 81 MG; Start 07/03/16 at 09:00 Carvedilol (Coreg) 6.25 mg BID PO Last administered on 07/13/16 08:57; Admin Dose 6.25 MG; Start 07/02/16 at 21:00 Clopidogrel Bisulfate (plaVIX) 75 mg DAILY PO Last administered on 07/13/16 08:57; Admin Dose 75 MG; Start 07/03/16 at 09:00 Hydralazine HCl (Apresoline) 10 mg Q8 PO Last administered on 07/13/16 05:55 ; Admin Dose 10 MG; Start 07/02/16 at 14:00 Isosorbide Dinitrate (Isordil) 20 mg TID PO Last administered on 07/13/16 08: 57; Admin Dose 20 MG; Start 07/02/16 at 13:00 Ranolazine (Ranexa) 1,000 mg Q12 PO Last administered on 07/13/16 08:57; Admin Dose 1,000 MG; Start 07/02/16 at 21:00 Atorvastatin Calcium (Lipitor) 80 mg HS PO Last administered on 07/03/16 21: 21; Admin Dose 80 MG; Start 07/02/16 at 21:00; Status Future Hold Ondansetron HCl (Zofran Inj) 4 mg Q6H PRN IV NAUSEA AND/OR VOMITING Last administered on 07/11/16 13:10; Admin Dose 4 MG; Start 07/02/16 at 11:30 Acetaminophen (Tylenol Tab) 650 mg Q6H PRN PO PAIN LEVEL 1-3 OR FEVER Last administered on 07/05/16 21:52; Admin Dose 650 MG; Start 07/02/16 at 11:30 Acetaminophen (Tylenol Supp) 650 mg Q6H PRN [place] PAIN LEVEL 1-3 OR FEVER; Start 07/02/16 at 11:30 Acetaminophen/ Hydrocodone Bitart ([place] (5/325)) 1 tab Q6H PRN PO MODERATE PAIN LEVEL 4-6 Last administered on 07/07/16at 09:11; Admin Dose 1 TAB; Start 07/02/16 at 11:30 Docusate Sodium (Colace) 100 mg Q12H PRN PO CONSTIPATION; Start 07/02/16 at 11 :30 Famotidine (Pepcid) 20 mg Q12 PO Last administered on 07/13/16at 08:57; Admin Dose 20 MG; Start 07/02/16 at 21:00 Heparin Sodium (Porcine) (Heparin (5000 Units/0.5 ml)) 5,000 unit Q12 SC Last administered on 07/13/16at 08:56; Admin Dose 5,000 UNIT; Start 07/02/16 at 21: 00 Miscellaneous Information 1 ea NOTE XX ; Start 07/02/16 at 12:00 Glucose (Glutose) 15 gm Q15M PRN PO DECREASED GLUCOSE; Start 07/02/16 at 12:00 Glucose (Glutose) 22.5 gm Q15M PRN PO DECREASED GLUCOSE; Start 07/02/16 at 12: 00 Dextrose (D50w Syringe) 25 ml Q15M PRN IV DECREASED GLUCOSE; Start 07/02/16 at 12:00 Dextrose (D50w Syringe) 50 ml Q15M PRN IV DECREASED GLUCOSE; Start 07/02/16 at 12:00 Glucagon (Glucagen) 1 mg Q15M PRN IM DECREASED GLUCOSE; Start 07/02/16 at 12: 00 Glucose (Glutose) 15 gm Q15M PRN BUCCAL DECREASED GLUCOSE; Start 07/02/16 at 12:00 Hydralazine HCl 10 mg 10 mg Q6H PRN IV SBP>160; Start 07/02/16 at 15:00 Sodium Chloride (NS) 1,000 ml @ 40 mls/hr Q24H IV Last administered on at 06:36; Admin Dose 40 MLS/HR; Start 07/02/16 at 15:00 Fish Oil (Fish Oil) 1,000 mg BID PO Last administered on 07/13/16at 08:56; Admin Dose 1,000 MG; Start 07/04/16 at 21:00 Lorazepam (Ativan) 1 mg Q6H PRN IV anxiety; Start 07/05/16 at 14:00 Zolpidem Tartrate (Ambien) 5 mg HS PRN PO INSOMNIA; Start 07/05/16 at 14:00 Lorazepam (Ativan) 1 mg Q6H PRN IM anxiety; Start 07/05/16 at 15:00 Alprazolam (Xanax) 1 mg TID PRN PO ANXIETY Last administered on 07/05/16 21: 52; Admin Dose 1 MG; Start 07/05/16 at 21:00 Diagnostic Test (Pha) (Accucheck) 1 ea 02 XX Last administered on 07/13/16 03 :33; Admin Dose 1 EA; Start 07/08/16 at 02:00 Hydromorphone HCl (Dilaudid) 0.5 mg Q4H PRN IV PAIN Last administered on 19:39; Admin Dose 0.5 MG; Start 07/07/16 at 13:00 Oxycodone/ Acetaminophen (Percocet (5/ 325)) 1 tab Q4H PRN PO PAIN Last administered on 07/13/16at 00:13; Admin Dose 1 TAB; Start 07/07/16 at 13:00 Guaifenesin/ Codeine Phosphate (Robitussin Ac Liquid Cup) 5 ml Q6H PRN PO COUGH Last administered on 07/10/16 14:35; Admin Dose 5 ML; Start 07/10/16 at 14:30 Insulin Glargine 30 unit 30 unit HS SC Last administered on 07/12/16 22:40; Admin Dose 30 UNIT; Start 07/11/16 at 21:00 Vancomycin HCl/ Sodium Chloride (Vancocin/NS) 500 ml @ 125 mls/hr Q24H IVPB Last administered on 07/12/16 20:34; Admin Dose 125 MLS/HR; Start 07/11/16 at 20:00 Levofloxacin 500 mg 500 mg DAILY@06 PO Last administered on 07/13/16 05:55; Admin Dose 500 MG; Start 07/13/16 at 06:00 Cefepime HCl (Maxipime 1gm/50 ml (Pmx)) 50 ml @ 100 mls/hr Q12 IVPB Last administered on 07/13/16 09:05; Admin Dose 100 MLS/HR; Start 07/12/16 at 21: 00 ROMANA DIAZ NP Jul 13, 2016 09:53
--- NOTE | 2016-07-13 13:25 | CONS ---
Date/Time of Note Date/Time of Note DATE: 07/13/16 TIME: 13:24 Consult Date/Type/Reason Admit Date/Time Jul 02, 2016 at 09:58 Type of Consultation: pulmonary Ordering Provider: NARENDRA CHAWLA MD Subjective Slowly improving No new events Objective Vital Signs Date Time Temp Pulse Resp B/P Pulse Ox O2 Delivery O2 Flow Rate FiO2 07/13/16 12:47 91 07/13/16 09:52 20 96 Nasal Cannula 2.0 07/13/16 08:30 98.0 183/87 07/10/16 21:50 28 Intake and Output 07/12/16 07/12/16 07/13/16 15:00 23:00 07:00 Intake Total 720 ml 200 ml Output Total 900 ml 750 ml Balance -180 ml -550 ml Results/Medications Result Diagram: 07/13/16 0640 07/13/16 0640 Results 24 hrs Laboratory Tests Test 07/12/16 16:46 07/12/16 22:37 07/13/16 02:38 07/13/16 06:40 Bedside Glucose 127 160 128 Alanine Aminotransferase (ALT/SGPT) 95 H Albumin 2.9 L Albumin/Globulin Ratio 0.87 Alkaline Phosphatase 162 H Anion Gap 12 Aspartate Amino Transf (AST/SGOT) 58 H Basophils # 0.0 Basophils % 0.4 Blood Morphology Comment Blood Urea Nitrogen 25 H Calcium Level 8.4 Carbon Dioxide Level 33 H Chloride Level 101 Creatinine 1.52 H Direct Bilirubin 0.00 Eosinophils # 0.1 Eosinophils % 1.1 Globulin 3.30 H Glucose Level 98 # Hematocrit 45.0 Hemoglobin 14.7 Indirect Bilirubin 0.3 Lymphocytes # 1.7 Lymphocytes % 18.7 Magnesium Level 1.9 Mean Corpuscular Hemoglobin 25.9 L Mean Corpuscular Hemoglobin Concent 32.7 Mean Corpuscular Volume 79.3 L Mean Platelet Volume 8.1 Monocytes # 0.8 Monocytes % 9.3 Neutrophils # 6.4 Neutrophils % 70.5 Nucleated Red Blood Cells # 0.0 Nucleated Red Blood Cells % 0.0 Phosphorus Level 3.0 Platelet Count 229 Potassium Level 3.5 Red Blood Count 5.68 Red Cell Distribution Width 17.5 H Sodium Level 142 Total Bilirubin 0.3 Total Protein 6.2 White Blood Count 9.1 Test 07/13/16 07:24 07/13/16 11:34 Bedside Glucose 102 98 Medications Current Medications Aspirin (Aspirin) 81 mg DAILY PO Last administered on 07/13/16 08:57; Admin Dose 81 MG; Start 07/03/16 at 09:00 Carvedilol (Coreg) 6.25 mg BID PO Last administered on 07/13/16 08:57; Admin Dose 6.25 MG; Start 07/02/16 at 21:00 Clopidogrel Bisulfate (plaVIX) 75 mg DAILY PO Last administered on 07/13/16 08:57; Admin Dose 75 MG; Start 07/03/16 at 09:00 Hydralazine HCl (Apresoline) 10 mg Q8 PO Last administered on 07/13/16 05:55 ; Admin Dose 10 MG; Start 07/02/16 at 14:00 Isosorbide Dinitrate (Isordil) 20 mg TID PO Last administered on 07/13/16 08: 57; Admin Dose 20 MG; Start 07/02/16 at 13:00 Ranolazine (Ranexa) 1,000 mg Q12 PO Last administered on 07/13/16 08:57; Admin Dose 1,000 MG; Start 07/02/16 at 21:00 Atorvastatin Calcium (Lipitor) 80 mg HS PO Last administered on 07/03/16 21: 21; Admin Dose 80 MG; Start 07/02/16 at 21:00; Status Future Hold Ondansetron HCl (Zofran Inj) 4 mg Q6H PRN IV NAUSEA AND/OR VOMITING Last administered on 07/11/16 13:10; Admin Dose 4 MG; Start 07/02/16 at 11:30 Acetaminophen (Tylenol Tab) 650 mg Q6H PRN PO PAIN LEVEL 1-3 OR FEVER Last administered on 07/05/16 21:52; Admin Dose 650 MG; Start 07/02/16 at 11:30 Acetaminophen (Tylenol Supp) 650 mg Q6H PRN [place] PAIN LEVEL 1-3 OR FEVER; Start 07/02/16 at 11:30 Acetaminophen/ Hydrocodone Bitart ([place] (5/325)) 1 tab Q6H PRN PO MODERATE PAIN LEVEL 4-6 Last administered on 07/07/16 09:11; Admin Dose 1 TAB; Start 07/02/16 at 11:30 Docusate Sodium (Colace) 100 mg Q12H PRN PO CONSTIPATION; Start 07/02/16 at 11 :30 Famotidine (Pepcid) 20 mg Q12 PO Last administered on 07/13/16at 08:57; Admin Dose 20 MG; Start 07/02/16 at 21:00 Heparin Sodium (Porcine) (Heparin (5000 Units/0.5 ml)) 5,000 unit Q12 SC Last administered on 07/13/16at 08:56; Admin Dose 5,000 UNIT; Start 07/02/16 at 21: 00 Miscellaneous Information 1 ea NOTE XX ; Start 07/02/16 at 12:00 Glucose (Glutose) 15 gm Q15M PRN PO DECREASED GLUCOSE; Start 07/02/16 at 12:00 Glucose (Glutose) 22.5 gm Q15M PRN PO DECREASED GLUCOSE; Start 07/02/16 at 12: 00 Dextrose (D50w Syringe) 25 ml Q15M PRN IV DECREASED GLUCOSE; Start 07/02/16 at 12:00 Dextrose (D50w Syringe) 50 ml Q15M PRN IV DECREASED GLUCOSE; Start 07/02/16 at 12:00 Glucagon (Glucagen) 1 mg Q15M PRN IM DECREASED GLUCOSE; Start 07/02/16 at 12: 00 Glucose (Glutose) 15 gm Q15M PRN BUCCAL DECREASED GLUCOSE; Start 07/02/16 at 12:00 Hydralazine HCl 10 mg 10 mg Q6H PRN IV SBP>160; Start 07/02/16 at 15:00 Sodium Chloride (NS) 1,000 ml @ 40 mls/hr Q24H IV Last administered on at 06:36; Admin Dose 40 MLS/HR; Start 07/02/16 at 15:00 Fish Oil (Fish Oil) 1,000 mg BID PO Last administered on 07/13/16at 08:56; Admin Dose 1,000 MG; Start 07/04/16 at 21:00 Lorazepam (Ativan) 1 mg Q6H PRN IV anxiety; Start 07/05/16 at 14:00 Zolpidem Tartrate (Ambien) 5 mg HS PRN PO INSOMNIA; Start 07/05/16 at 14:00 Lorazepam (Ativan) 1 mg Q6H PRN IM anxiety; Start 07/05/16 at 15:00 Alprazolam (Xanax) 1 mg TID PRN PO ANXIETY Last administered on 07/05/16 21: 52; Admin Dose 1 MG; Start 07/05/16 at 21:00 Diagnostic Test (Pha) (Accucheck) 1 ea 02 XX Last administered on 07/13/16 03 :33; Admin Dose 1 EA; Start 07/08/16 at 02:00 Hydromorphone HCl (Dilaudid) 0.5 mg Q4H PRN IV PAIN Last administered on 19:39; Admin Dose 0.5 MG; Start 07/07/16 at 13:00 Oxycodone/ Acetaminophen (Percocet (5/ 325)) 1 tab Q4H PRN PO PAIN Last administered on 07/13/16at 00:13; Admin Dose 1 TAB; Start 07/07/16 at 13:00 Guaifenesin/ Codeine Phosphate (Robitussin Ac Liquid Cup) 5 ml Q6H PRN PO COUGH Last administered on 07/10/16at 14:35; Admin Dose 5 ML; Start 07/10/16 at 14:30 Insulin Glargine 30 unit 30 unit HS SC Last administered on 07/12/16 22:40; Admin Dose 30 UNIT; Start 07/11/16 at 21:00 Vancomycin HCl/ Sodium Chloride (Vancocin/NS) 500 ml @ 125 mls/hr Q24H IVPB Last administered on 07/12/16 20:34; Admin Dose 125 MLS/HR; Start 07/11/16 at 20:00 Levofloxacin 500 mg 500 mg DAILY@06 PO Last administered on 07/13/16at 05:55; Admin Dose 500 MG; Start 07/13/16 at 06:00 Cefepime HCl (Maxipime 1gm/50 ml (Pmx)) 50 ml @ 100 mls/hr Q12 IVPB Last administered on 07/13/16 09:05; Admin Dose 100 MLS/HR; Start 07/12/16 at 21: 00 Assessment/Plan Chief Complaint/Hosp Course Assessment 1. Right upper lobe pneumonia, radiographic improvement today 2. History of tobacco use 3. Underlying emphysema 4. Hypernatremia Plan 1. Continue antibiotics 2. Repeat chest x-ray prior to discharge 3. Outpatient primary function test and CT chest Anticipate discharge 2-3 days Problems: MAXX APPLE MD, [facility] Jul 13, 2016 13:25
[2016-07-13] MEDS: HYDROmorphONE 1 MG/ML SYG IV PRN ×2 (14:51→20:38)
[2016-07-13] MEDS: SOD CHLORIDE 0.9% 1,000 ML IV SCH (15:00)
--- NOTE | 2016-07-13 16:49 | CONS ---
Date/Time of Note Date/Time of Note DATE: 07/13/16 TIME: 16:46 Consult Date/Type/Reason Admit Date/Time Jul 02, 2016 at 09:58 Initial Consult Date Type of Consultation: ID Ordering Provider: NARENDRA CHAWLA MD Subjective no events, alert, feels better, no fevers, comfortable on nc Objective Vital Signs Date Time Temp Pulse Resp B/P Pulse Ox O2 Delivery O2 Flow Rate FiO2 07/13/16 16:41 2.0 07/13/16 16:18 86 07/13/16 16:08 97.9 18 145/72 96 Nasal Cannula 07/10/16 21:50 28 Intake and Output 07/12/16 07/12/16 07/13/16 15:00 23:00 07:00 Intake Total 720 ml 200 ml Output Total 900 ml 750 ml Balance -180 ml -550 ml Results/Medications Result Diagram: 07/13/16 0640 07/13/16 0640 Results 24 hrs Laboratory Tests Test 07/12/16 22:37 07/13/16 02:38 07/13/16 06:40 07/13/16 07:24 Bedside Glucose 160 128 102 Alanine Aminotransferase (ALT/SGPT) 95 H Albumin 2.9 L Albumin/Globulin Ratio 0.87 Alkaline Phosphatase 162 H Anion Gap 12 Aspartate Amino Transf (AST/SGOT) 58 H Basophils # 0.0 Basophils % 0.4 Blood Morphology Comment Blood Urea Nitrogen 25 H Calcium Level 8.4 Carbon Dioxide Level 33 H Chloride Level 101 Creatinine 1.52 H Direct Bilirubin 0.00 Eosinophils # 0.1 Eosinophils % 1.1 Globulin 3.30 H Glucose Level 98 # Hematocrit 45.0 Hemoglobin 14.7 Indirect Bilirubin 0.3 Lymphocytes # 1.7 Lymphocytes % 18.7 Magnesium Level 1.9 Mean Corpuscular Hemoglobin 25.9 L Mean Corpuscular Hemoglobin Concent 32.7 Mean Corpuscular Volume 79.3 L Mean Platelet Volume 8.1 Monocytes # 0.8 Monocytes % 9.3 Neutrophils # 6.4 Neutrophils % 70.5 Nucleated Red Blood Cells # 0.0 Nucleated Red Blood Cells % 0.0 Phosphorus Level 3.0 Platelet Count 229 Potassium Level 3.5 Red Blood Count 5.68 Red Cell Distribution Width 17.5 H Sodium Level 142 Total Bilirubin 0.3 Total Protein 6.2 White Blood Count 9.1 Test 07/13/16 11:34 12/30/16 13:33 Bedside Glucose 98 82 Medications Current Medications Aspirin (Aspirin) 81 mg DAILY PO Last administered on 07/13/16 08:57; Admin Dose 81 MG; Start 07/03/16 at 09:00 Carvedilol (Coreg) 6.25 mg BID PO Last administered on 07/13/16 08:57; Admin Dose 6.25 MG; Start 07/02/16 at 21:00 Clopidogrel Bisulfate (plaVIX) 75 mg DAILY PO Last administered on 07/13/16 08:57; Admin Dose 75 MG; Start 07/03/16 at 09:00 Hydralazine HCl (Apresoline) 10 mg Q8 PO Last administered on 07/13/16 13:27 ; Admin Dose 10 MG; Start 07/02/16 at 14:00 Isosorbide Dinitrate (Isordil) 20 mg TID PO Last administered on 07/13/16 13: 28; Admin Dose 20 MG; Start 07/02/16 at 13:00 Ranolazine (Ranexa) 1,000 mg Q12 PO Last administered on 07/13/16 08:57; Admin Dose 1,000 MG; Start 07/02/16 at 21:00 Atorvastatin Calcium (Lipitor) 80 mg HS PO Last administered on 07/03/16 21: 21; Admin Dose 80 MG; Start 07/02/16 at 21:00; Status Future Hold Ondansetron HCl (Zofran Inj) 4 mg Q6H PRN IV NAUSEA AND/OR VOMITING Last administered on 07/11/16 13:10; Admin Dose 4 MG; Start 07/02/16 at 11:30 Acetaminophen (Tylenol Tab) 650 mg Q6H PRN PO PAIN LEVEL 1-3 OR FEVER Last administered on 07/05/16 21:52; Admin Dose 650 MG; Start 07/02/16 at 11:30 Acetaminophen (Tylenol Supp) 650 mg Q6H PRN [place] PAIN LEVEL 1-3 OR FEVER; Start 07/02/16 at 11:30 Acetaminophen/ Hydrocodone Bitart ([place] (5/325)) 1 tab Q6H PRN PO MODERATE PAIN LEVEL 4-6 Last administered on 07/07/16 09:11; Admin Dose 1 TAB; Start 07/02/16 at 11:30 Docusate Sodium (Colace) 100 mg Q12H PRN PO CONSTIPATION; Start 07/02/16 at 11 :30 Famotidine (Pepcid) 20 mg Q12 PO Last administered on 07/13/16at 08:57; Admin Dose 20 MG; Start 07/02/16 at 21:00 Heparin Sodium (Porcine) (Heparin (5000 Units/0.5 ml)) 5,000 unit Q12 SC Last administered on 07/13/16at 08:56; Admin Dose 5,000 UNIT; Start 07/02/16 at 21: 00 Miscellaneous Information 1 ea NOTE XX ; Start 07/02/16 at 12:00 Glucose (Glutose) 15 gm Q15M PRN PO DECREASED GLUCOSE; Start 07/02/16 at 12:00 Glucose (Glutose) 22.5 gm Q15M PRN PO DECREASED GLUCOSE; Start 07/02/16 at 12: 00 Dextrose (D50w Syringe) 25 ml Q15M PRN IV DECREASED GLUCOSE; Start 07/02/16 at 12:00 Dextrose (D50w Syringe) 50 ml Q15M PRN IV DECREASED GLUCOSE; Start 07/02/16 at 12:00 Glucagon (Glucagen) 1 mg Q15M PRN IM DECREASED GLUCOSE; Start 07/02/16 at 12: 00 Glucose (Glutose) 15 gm Q15M PRN BUCCAL DECREASED GLUCOSE; Start 07/02/16 at 12:00 Hydralazine HCl 10 mg 10 mg Q6H PRN IV SBP>160; Start 07/02/16 at 15:00 Sodium Chloride (NS) 1,000 ml @ 40 mls/hr Q24H IV Last administered on at 06:36; Admin Dose 40 MLS/HR; Start 07/02/16 at 15:00 Fish Oil (Fish Oil) 1,000 mg BID PO Last administered on 07/13/16at 08:56; Admin Dose 1,000 MG; Start 07/04/16 at 21:00 Lorazepam (Ativan) 1 mg Q6H PRN IV anxiety; Start 07/05/16 at 14:00 Zolpidem Tartrate (Ambien) 5 mg HS PRN PO INSOMNIA; Start 07/05/16 at 14:00 Lorazepam (Ativan) 1 mg Q6H PRN IM anxiety; Start 07/05/16 at 15:00 Alprazolam (Xanax) 1 mg TID PRN PO ANXIETY Last administered on 07/05/16 21: 52; Admin Dose 1 MG; Start 07/05/16 at 21:00 Diagnostic Test (Pha) (Accucheck) 1 ea 02 XX Last administered on 07/13/16 03 :33; Admin Dose 1 EA; Start 07/08/16 at 02:00 Hydromorphone HCl (Dilaudid) 0.5 mg Q4H PRN IV PAIN Last administered on 14:51; Admin Dose 0.5 MG; Start 07/07/16 at 13:00 Oxycodone/ Acetaminophen (Percocet (5/ 325)) 1 tab Q4H PRN PO PAIN Last administered on 07/13/16at 00:13; Admin Dose 1 TAB; Start 07/07/16 at 13:00 Guaifenesin/ Codeine Phosphate (Robitussin Ac Liquid Cup) 5 ml Q6H PRN PO COUGH Last administered on 07/10/16 14:35; Admin Dose 5 ML; Start 07/10/16 at 14:30 Insulin Glargine 30 unit 30 unit HS SC Last administered on 07/12/16 22:40; Admin Dose 30 UNIT; Start 07/11/16 at 21:00 Vancomycin HCl/ Sodium Chloride (Vancocin/NS) 500 ml @ 125 mls/hr Q24H IVPB Last administered on 07/12/16 20:34; Admin Dose 125 MLS/HR; Start 07/11/16 at 20:00 Levofloxacin 500 mg 500 mg DAILY@06 PO Last administered on 07/13/16 05:55; Admin Dose 500 MG; Start 07/13/16 at 06:00 Cefepime HCl (Maxipime 1gm/50 ml (Pmx)) 50 ml @ 100 mls/hr Q12 IVPB Last administered on 07/13/16 09:05; Admin Dose 100 MLS/HR; Start 07/12/16 at 21: 00 Assessment/Plan Chief Complaint/Hosp Course MICROBIOLOGY: Sputum culture on 07/03 grew Staphylococcus aureus. Influenza swab was negative. Urine culture negative. Stool for C diff negative. ANTIMICROBIALS: The patient is on: 1. Vancomycin. 2. Levaquin 3. Cefepime PHYSICAL EXAMINATION: GENERAL: This is an obese, well-developed middle-aged [place]-speaking man who is alert, in no distress. HEENT: Head atraumatic, normocephalic. Sclerae anicteric. Buccal mucosa pink. NECK: Supple, trachea midline. CHEST: Rise symmetrical. Breath sounds diminished to bases. HEART: S1, S2. ABDOMEN: Soft. Bowel tones present. EXTREMITIES: No cyanosis. ASSESSMENT: 1. Acute on chronic respiratory failure. 2. Right upper lobe consolidation with parapneumonic effusion consistent with pneumonia ?HCAP. 3. Obesity. 4. Acute renal failure. 5. Emphysema. PLAN: Improving on current abx, continue present care, pulmonary rec-s noted. MILADIS pt MILADIS Wynn Problems: BONNIE MONTILLA NP Jul 13, 2016 16:48
--- NOTE | 2016-07-13 18:26 | CONS ---
Date/Time of Note Date/Time of Note DATE: 07/13/16 TIME: 18:26 Assessment/Plan Assessment/Plan Chief Complaint/Hosp Course IMPRESSION: 1. The patient has pneumonia./EMPHYSEMA 2. jovani w ckd stable 3. Underlying chronic kidney disease. 4. Diabetes mellitus. 5. Hypertension. 6. Anemia. 7. EDEMA 8. Obesity. 9. Dyslipidemia. 10 hypernatremia on diuretic BETTER 11 leg edema+ plan f/u bmp LASIX Problems: Consultation Date/Type/Reason Admit Date/Time Jul 02, 2016 at 09:58 Type of Consultation: RENAL Referring Provider: NARENDRA CHAWLA MD 24 HR Interval Summary Constitutional: improved Exam/Review of Systems Vital Signs Vitals Vital Signs Date Time Temp Pulse Resp B/P Pulse Ox O2 Delivery O2 Flow Rate FiO2 07/13/16 16:41 2.0 07/13/16 16:18 86 07/13/16 16:08 97.9 18 145/72 96 Nasal Cannula 07/10/16 21:50 28 Intake and Output 07/12/16 07/12/16 07/13/16 15:00 23:00 07:00 Intake Total 720 ml 200 ml Output Total 900 ml 750 ml Balance -180 ml -550 ml Exam Respiratory: clear to auscultation Cardiovascular: regular rate and rhythm Gastrointestinal: soft Extremities: edema (++) Results Result Diagram: 07/13/16 0640 07/13/16 0640 Results 24 hrs Laboratory Tests Test 07/12/16 22:37 07/13/16 02:38 07/13/16 06:40 07/13/16 07:24 Bedside Glucose 160 128 102 Alanine Aminotransferase (ALT/SGPT) 95 H Albumin 2.9 L Albumin/Globulin Ratio 0.87 Alkaline Phosphatase 162 H Anion Gap 12 Aspartate Amino Transf (AST/SGOT) 58 H Basophils # 0.0 Basophils % 0.4 Blood Morphology Comment Blood Urea Nitrogen 25 H Calcium Level 8.4 Carbon Dioxide Level 33 H Chloride Level 101 Creatinine 1.52 H Direct Bilirubin 0.00 Eosinophils # 0.1 Eosinophils % 1.1 Globulin 3.30 H Glucose Level 98 # Hematocrit 45.0 Hemoglobin 14.7 Indirect Bilirubin 0.3 Lymphocytes # 1.7 Lymphocytes % 18.7 Magnesium Level 1.9 Mean Corpuscular Hemoglobin 25.9 L Mean Corpuscular Hemoglobin Concent 32.7 Mean Corpuscular Volume 79.3 L Mean Platelet Volume 8.1 Monocytes # 0.8 Monocytes % 9.3 Neutrophils # 6.4 Neutrophils % 70.5 Nucleated Red Blood Cells # 0.0 Nucleated Red Blood Cells % 0.0 Phosphorus Level 3.0 Platelet Count 229 Potassium Level 3.5 Red Blood Count 5.68 Red Cell Distribution Width 17.5 H Sodium Level 142 Total Bilirubin 0.3 Total Protein 6.2 White Blood Count 9.1 Test 07/13/16 11:34 07/13/16 13:33 07/13/16 16:59 Bedside Glucose 98 82 200 Medications Medications Current Medications Aspirin (Aspirin) 81 mg DAILY PO Last administered on 07/13/16 08:57; Admin Dose 81 MG; Start 07/03/16 at 09:00 Carvedilol (Coreg) 6.25 mg BID PO Last administered on 07/13/16 08:57; Admin Dose 6.25 MG; Start 07/02/16 at 21:00 Clopidogrel Bisulfate (plaVIX) 75 mg DAILY PO Last administered on 07/13/16 08:57; Admin Dose 75 MG; Start 07/03/16 at 09:00 Hydralazine HCl (Apresoline) 10 mg Q8 PO Last administered on 07/13/16 13:27 ; Admin Dose 10 MG; Start 07/02/16 at 14:00 Isosorbide Dinitrate (Isordil) 20 mg TID PO Last administered on 07/13/16 13: 28; Admin Dose 20 MG; Start 07/02/16 at 13:00 Ranolazine (Ranexa) 1,000 mg Q12 PO Last administered on 07/13/16 08:57; Admin Dose 1,000 MG; Start 07/02/16 at 21:00 Atorvastatin Calcium (Lipitor) 80 mg HS PO Last administered on 07/03/16 21: 21; Admin Dose 80 MG; Start 07/02/16 at 21:00; Status Future Hold Ondansetron HCl (Zofran Inj) 4 mg Q6H PRN IV NAUSEA AND/OR VOMITING Last administered on 07/11/16 13:10; Admin Dose 4 MG; Start 07/02/16 at 11:30 Acetaminophen (Tylenol Tab) 650 mg Q6H PRN PO PAIN LEVEL 1-3 OR FEVER Last administered on 12/22/16at 21:52; Admin Dose 650 MG; Start 07/02/16 at 11:30 Acetaminophen (Tylenol Supp) 650 mg Q6H PRN [place] PAIN LEVEL 1-3 OR FEVER; Start 07/02/16 at 11:30 Acetaminophen/ Hydrocodone Bitart ([place] (5/325)) 1 tab Q6H PRN PO MODERATE PAIN LEVEL 4-6 Last administered on 07/07/16at 09:11; Admin Dose 1 TAB; Start 07/02/16 at 11:30 Docusate Sodium (Colace) 100 mg Q12H PRN PO CONSTIPATION; Start 07/02/16 at 11 :30 Famotidine (Pepcid) 20 mg Q12 PO Last administered on 07/13/16at 08:57; Admin Dose 20 MG; Start 07/02/16 at 21:00 Heparin Sodium (Porcine) (Heparin (5000 Units/0.5 ml)) 5,000 unit Q12 SC Last administered on 07/13/16at 08:56; Admin Dose 5,000 UNIT; Start 07/02/16 at 21: 00 Miscellaneous Information 1 ea NOTE XX ; Start 07/02/16 at 12:00 Glucose (Glutose) 15 gm Q15M PRN PO DECREASED GLUCOSE; Start 07/02/16 at 12:00 Glucose (Glutose) 22.5 gm Q15M PRN PO DECREASED GLUCOSE; Start 07/02/16 at 12: 00 Dextrose (D50w Syringe) 25 ml Q15M PRN IV DECREASED GLUCOSE; Start 07/02/16 at 12:00 Dextrose (D50w Syringe) 50 ml Q15M PRN IV DECREASED GLUCOSE; Start 07/02/16 at 12:00 Glucagon (Glucagen) 1 mg Q15M PRN IM DECREASED GLUCOSE; Start 07/02/16 at 12: 00 Glucose (Glutose) 15 gm Q15M PRN BUCCAL DECREASED GLUCOSE; Start 07/02/16 at 12:00 Hydralazine HCl 10 mg 10 mg Q6H PRN IV SBP>160; Start 07/02/16 at 15:00 Sodium Chloride (NS) 1,000 ml @ 40 mls/hr Q24H IV Last administered on at 06:36; Admin Dose 40 MLS/HR; Start 07/02/16 at 15:00 Fish Oil (Fish Oil) 1,000 mg BID PO Last administered on 07/13/16 08:56; Admin Dose 1,000 MG; Start 07/04/16 at 21:00 Lorazepam (Ativan) 1 mg Q6H PRN IV anxiety; Start 07/05/16 at 14:00 Zolpidem Tartrate (Ambien) 5 mg HS PRN PO INSOMNIA; Start 07/05/16 at 14:00 Lorazepam (Ativan) 1 mg Q6H PRN IM anxiety; Start 07/05/16 at 15:00 Alprazolam (Xanax) 1 mg TID PRN PO ANXIETY Last administered on 07/05/16 21: 52; Admin Dose 1 MG; Start 07/05/16 at 21:00 Diagnostic Test (Pha) (Accucheck) 1 ea 02 XX Last administered on 07/13/16 03 :33; Admin Dose 1 EA; Start 07/08/16 at 02:00 Hydromorphone HCl (Dilaudid) 0.5 mg Q4H PRN IV PAIN Last administered on 14:51; Admin Dose 0.5 MG; Start 07/07/16 at 13:00 Oxycodone/ Acetaminophen (Percocet (5/ 325)) 1 tab Q4H PRN PO PAIN Last administered on 07/13/16at 00:13; Admin Dose 1 TAB; Start 07/07/16 at 13:00 Guaifenesin/ Codeine Phosphate (Robitussin Ac Liquid Cup) 5 ml Q6H PRN PO COUGH Last administered on 07/10/16 14:35; Admin Dose 5 ML; Start 07/10/16 at 14:30 Insulin Glargine 30 unit 30 unit HS SC Last administered on 07/12/16 22:40; Admin Dose 30 UNIT; Start 07/11/16 at 21:00 Vancomycin HCl/ Sodium Chloride (Vancocin/NS) 500 ml @ 125 mls/hr Q24H IVPB Last administered on 07/12/16 20:34; Admin Dose 125 MLS/HR; Start 07/11/16 at 20:00 Levofloxacin 500 mg 500 mg DAILY@06 PO Last administered on 07/13/16 05:55; Admin Dose 500 MG; Start 07/13/16 at 06:00 Cefepime HCl (Maxipime 1gm/50 ml (Pmx)) 50 ml @ 100 mls/hr Q12 IVPB Last administered on 07/13/16at 09:05; Admin Dose 100 MLS/HR; Start 07/12/16 at 21: 00 ROBB ALBERT MD Jul 13, 2016 18:26
[2016-07-13] MEDS: VANCOMYCIN 1.75 GM in NS 500 ML IVPB SCH (20:06)
[2016-07-13] MEDS: INSULIN GLARGINE [LANtus] 3 ML PEN SC SCH (21:21)
[2016-07-14] VITALS (10 sets, daily range): BP systolic 126–168; BP diastolic 61–83; PULSE 74–85; RESP 17–20
[2016-07-14] MEDS: ALBUTEROL/IPRATROPIUM (NEB) 3 ML AMP HHN SCH ×6 (01:02→21:39)
[2016-07-14] MEDS: HYDROmorphONE 1 MG/ML SYG IV PRN ×4 (01:06→21:59)
[2016-07-14] MEDS: ACCUCHECK XX SCH (02:01)
[2016-07-14] MEDS: FUROSEMIDE 20 MG INJ IV SCH ×2 (06:18→18:00)
[2016-07-14] MEDS: LEVOFLOXACIN 500 MG TAB PO SCH (06:19)
[2016-07-14 06:23] LABS: BASOPHILS % 0.3 % (0.0-2.0); EOSINOPHILS # 0.1 10^3/ul (0.0-0.5); EOSINOPHILS % 0.8 % (0.0-7.0); HEMATOCRIT 40.4 % (42.0-52.0); HEMOGLOBIN 13.2 g/dl (14.0-18.0); LYMPHOCYTES # 1.7 10^3/ul (0.8-2.9); LYMPHOCYTES % 19.8 % (15.0-51.0); MEAN CORPUSCULAR HEMOGLOBIN 26.1 pg (29.0-33.0); MEAN CORPUSCULAR HGB CONC 32.7 g/dl (32.0-37.0); MEAN CORPUSCULAR VOLUME 79.9 fl (82.0-101.0); MEAN PLATELET VOLUME 8.1 fl (7.4-10.4); MONOCYTE # 0.7 10^3/ul (0.3-0.9); NEUTROPHIL # 6.2 10^3/ul (1.6-7.5); NEUTROPHILS % 71.1 % (39.0-77.0); PLATELET COUNT 181 10^3/UL (140-440); RED BLOOD COUNT 5.06 10^6/ul (4.70-6.10); RED CELL DISTRIBUTION WIDTH 17.6 % (11.5-14.5); UNCORRECTED WBC 8.7 10^3/ul (4.8-10.8); WHITE BLOOD COUNT 8.7 10^3/ul (4.8-10.8)
[2016-07-14 06:25] LABS: CONDITION 1; LH ANALYZER COMMENTS 1
[2016-07-14 06:55] LABS: MAGNESIUM 1.8 mg/dl (1.7-2.5)
[2016-07-14 07:01] LABS: POTASSIUM 3.6 mmol/L (3.5-5.1)
[2016-07-14 07:03] LABS: CREATININE 1.79 mg/dl (0.61-1.24)
[2016-07-14 07:04] LABS: CALCIUM 7.8 mg/dl (8.4-10.2)
[2016-07-14] MEDS: INSULIN ASPART [NOVOLOG] 3 ML PEN SC SCH ×7 (08:00→21:00)
[2016-07-14] MEDS: HEPARIN 5,000 UNIT/0.5 ML SYG SC SCH ×2 (08:09→21:48)
[2016-07-14] MEDS: ASPIRIN 81 MG TAB PO SCH (08:10)
[2016-07-14] MEDS: CLOPIDOGREL 75 MG TAB PO SCH (08:10)
[2016-07-14] MEDS: ISOSORBIDE DINITRATE 20 MG TAB PO SCH ×3 (08:10→21:37)
[2016-07-14] MEDS: FAMOTIDINE 20 MG TAB PO SCH ×2 (08:10→21:36)
[2016-07-14] MEDS: RANOLAZINE (SR) 500 MG TAB PO SCH ×2 (08:10→21:36)
[2016-07-14] MEDS: FISH OIL 1,000 MG CAP PO SCH ×2 (08:14→21:36)
[2016-07-14] MEDS: CEFEPIME 1GM/50 ML (PMX) 50 ML IVPB SCH ×2 (09:00→21:35)
--- NOTE | 2016-07-14 10:59 | PN ---
Date/Time of Note Date/Time of Note DATE: 07/14/16 TIME: 10:55 Assessment/Plan VTE Prophylaxis VTE Prophylaxis Intervention: heparin Lines/Catheters IV C[facility] Type [facility] Peripheral IV Urinary Cath still in place: No Assessment/Plan Chief Complaint/Hosp Course 1. Right upper lobe Pneumonia. Legionella pneumonia. Chest x-ray showing persistent right upper lobe infiltrate. Sputum CS with staph aureus. ->Continue Rocephin/Zithromax/Vancomycin. Infectious diseases following. 2. COPD exacerbation with bronchospasm. Improved. ->.Pulmonary on board.Continue bronchodilators. S/P steroids. 3. Sepsis secondary to pneumonia: Resolving. Will monitor. 4. Acute kidney injury on chronic kidney disease. SHERYL likely secondary to sepsis vs diuretic induced. Creatinine trending up. -> Nephrology on board. Monitor renal function closely and avoid nephrotoxins as much as possible. 5. Essential hypertension: Stable. On Isordil / hydralazine / Coreg. 6. Ischemic cardiomyopathy. Continue BBs. Unable to use ACEIs because of worsening renal function. 7. Coronary artery disease, status post multiple percutaneous coronary interventions: On ASA/ Plavix/ Statin / BB / hydralazine/nitrates. 8. Congestive heart failure exacerbation. Acute on chronic. Systolic dysfunction. . Continue medical management with Coreg, Imdur, and aspirin. Diuretics as per nephrology. 9. Hyperglycemia with Type 2 diabetes. A1C 9.8: non compliance Continue accu checks, ISS, pre-meals and Lantus to 33 units. 10. Dyslipidemia. Hold Lipitor due to liver fxn. Continue Fish oil. May need to change to low dose Zocor up on DC with LFT monitoring. 11. Hepatomegaly with Transaminase elevation-likely concurrent illness. Monitor closely. Avoid hepatotoxins as much as possible. 12. Obesity. Weight reduction advised 13. Hx of Nicotine abuse. Patient denied this before and now says he was a smoker. DVT prophylaxis: Heparin PUD prophylaxis: Pepcid PLAN: Continue antibiotics as per infectious diseases. Latest chest x-ray showing improvement. Case was discussed with pulmonary. Pulmonary recommended continuing the patient on current antibiotics. Will adjust insulin dosing to obtain optimal blood sugar control. Case discussed with . Problems: Subjective 24 Hr Interval Summary Free Text/Dictation "Feeling a little better." Exam/Review of Systems Vital Signs Vitals Vital Signs Date Time Temp Pulse Resp B/P Pulse Ox O2 Delivery O2 Flow Rate FiO2 07/14/16 08:52 78 18 97 Nasal Cannula 2.0 07/14/16 07:42 98.1 168/83 07/10/16 21:50 28 Intake and Output 07/13/16 07/13/16 07/14/16 15:00 23:00 07:00 Intake Total 850 ml 1300 ml Output Total 1500 ml 1600 ml Balance -650 ml -300 ml Exam General: Morbidly obese build 55 year-old male lying in bed in mild respiratory distress. HEENT: Normocephalic, atraumatic. Eyes: Anicteric sclerae, conjunctivae clear. ENT: Nasal septum midline, oral mucosa moist. Neck: Supple, no JVD noticed. Respiratory: Bilaterally diminished breath sounds. No use of accessory muscles of respiration. Fine rales on the right side. Cardiovascular: S1, S2 heard. No murmurs or gallops. Abdomen: Soft, nontender, and protuberant. Bowel sounds positive in all 4 quadrants. Genitourinary: Deferred. Extremities: No cyanosis, no clubbing. Bilateral lower extremity 2+ edema. Peripheral pulses palpable. Neurologic: Cranial nerves II through XII grossly intact. The patient is awake, alert, and oriented. Skin: Normal skin turgor. No skin rashes. Results Result Diagram: 07/14/16 0542 07/14/16 0542 Results 24 hrs Laboratory Tests Test 07/13/16 11:34 07/13/16 13:33 07/13/16 16:59 07/13/16 20:42 Bedside Glucose 98 82 200 232 H Test 07/14/16 02:00 07/14/16 05:42 07/14/16 07:46 Bedside Glucose 227 H 244 H Anion Gap 13 Basophils # 0.0 Basophils % 0.3 Blood Morphology Comment Blood Urea Nitrogen 27 H Calcium Level 7.8 L Carbon Dioxide Level 30 Chloride Level 101 Creatinine 1.79 H Eosinophils # 0.1 Eosinophils % 0.8 Glucose Level 291 #H Hematocrit 40.4 L Hemoglobin 13.2 L Lymphocytes # 1.7 Lymphocytes % 19.8 Magnesium Level 1.8 Mean Corpuscular Hemoglobin 26.1 L Mean Corpuscular Hemoglobin Concent 32.7 Mean Corpuscular Volume 79.9 L Mean Platelet Volume 8.1 Monocytes # 0.7 Monocytes % 8.0 Neutrophils # 6.2 Neutrophils % 71.1 Nucleated Red Blood Cells # 0.0 Nucleated Red Blood Cells % 0.0 Phosphorus Level 3.0 Platelet Count 181 # Potassium Level 3.6 Red Blood Count 5.06 Red Cell Distribution Width 17.6 H Sodium Level 140 White Blood Count 8.7 Medications Medications Current Medications Aspirin (Aspirin) 81 mg DAILY PO Last administered on 07/14/16 08:10; Admin Dose 81 MG; Start 07/03/16 at 09:00 Carvedilol (Coreg) 6.25 mg BID PO Last administered on 07/14/16 08:11; Admin Dose 6.25 MG; Start 07/02/16 at 21:00 Clopidogrel Bisulfate (plaVIX) 75 mg DAILY PO Last administered on 07/14/16 08:10; Admin Dose 75 MG; Start 07/03/16 at 09:00 Hydralazine HCl (Apresoline) 10 mg Q8 PO Last administered on 07/14/16 06:19 ; Admin Dose 10 MG; Start 07/02/16 at 14:00 Isosorbide Dinitrate (Isordil) 20 mg TID PO Last administered on 07/14/16 08: 10; Admin Dose 20 MG; Start 07/02/16 at 13:00 Ranolazine (Ranexa) 1,000 mg Q12 PO Last administered on 07/14/16 08:10; Admin Dose 1,000 MG; Start 07/02/16 at 21:00 Atorvastatin Calcium (Lipitor) 80 mg HS PO Last administered on 07/03/16 21: 21; Admin Dose 80 MG; Start 07/02/16 at 21:00; Status Future Hold Ondansetron HCl (Zofran Inj) 4 mg Q6H PRN IV NAUSEA AND/OR VOMITING Last administered on 07/11/16 13:10; Admin Dose 4 MG; Start 07/02/16 at 11:30 Acetaminophen (Tylenol Tab) 650 mg Q6H PRN PO PAIN LEVEL 1-3 OR FEVER Last administered on 07/05/16 21:52; Admin Dose 650 MG; Start 07/02/16 at 11:30 Acetaminophen (Tylenol Supp) 650 mg Q6H PRN [place] PAIN LEVEL 1-3 OR FEVER; Start 07/02/16 at 11:30 Acetaminophen/ Hydrocodone Bitart ([place] (5/325)) 1 tab Q6H PRN PO MODERATE PAIN LEVEL 4-6 Last administered on 07/07/16at 09:11; Admin Dose 1 TAB; Start 07/02/16 at 11:30 Docusate Sodium (Colace) 100 mg Q12H PRN PO CONSTIPATION; Start 07/02/16 at 11 :30 Famotidine (Pepcid) 20 mg Q12 PO Last administered on 07/14/16at 08:10; Admin Dose 20 MG; Start 07/02/16 at 21:00 Heparin Sodium (Porcine) (Heparin (5000 Units/0.5 ml)) 5,000 unit Q12 SC Last administered on 07/14/16at 08:09; Admin Dose 5,000 UNIT; Start 07/02/16 at 21: 00 Miscellaneous Information 1 ea NOTE XX ; Start 07/02/16 at 12:00 Glucose (Glutose) 15 gm Q15M PRN PO DECREASED GLUCOSE; Start 07/02/16 at 12:00 Glucose (Glutose) 22.5 gm Q15M PRN PO DECREASED GLUCOSE; Start 07/02/16 at 12: 00 Dextrose (D50w Syringe) 25 ml Q15M PRN IV DECREASED GLUCOSE; Start 07/02/16 at 12:00 Dextrose (D50w Syringe) 50 ml Q15M PRN IV DECREASED GLUCOSE; Start 07/02/16 at 12:00 Glucagon (Glucagen) 1 mg Q15M PRN IM DECREASED GLUCOSE; Start 07/02/16 at 12: 00 Glucose (Glutose) 15 gm Q15M PRN BUCCAL DECREASED GLUCOSE; Start 07/02/16 at 12:00 Hydralazine HCl 10 mg 10 mg Q6H PRN IV SBP>160; Start 07/02/16 at 15:00 Sodium Chloride (NS) 1,000 ml @ 40 mls/hr Q24H IV Last administered on at 06:36; Admin Dose 40 MLS/HR; Start 07/02/16 at 15:00 Fish Oil (Fish Oil) 1,000 mg BID PO Last administered on 07/14/16at 08:14; Admin Dose 1,000 MG; Start 07/04/16 at 21:00 Lorazepam (Ativan) 1 mg Q6H PRN IV anxiety; Start 07/05/16 at 14:00 Zolpidem Tartrate (Ambien) 5 mg HS PRN PO INSOMNIA; Start 07/05/16 at 14:00 Lorazepam (Ativan) 1 mg Q6H PRN IM anxiety; Start 07/05/16 at 15:00 Alprazolam (Xanax) 1 mg TID PRN PO ANXIETY Last administered on 07/05/16 21: 52; Admin Dose 1 MG; Start 07/05/16 at 21:00 Diagnostic Test (Pha) (Accucheck) 1 ea 02 XX Last administered on 07/14/16 02 :01; Admin Dose 1 EA; Start 07/08/16 at 02:00 Hydromorphone HCl (Dilaudid) 0.5 mg Q4H PRN IV PAIN Last administered on at 08:08; Admin Dose 0.5 MG; Start 07/07/16 at 13:00 Oxycodone/ Acetaminophen (Percocet (5/ 325)) 1 tab Q4H PRN PO PAIN Last administered on 07/13/16at 00:13; Admin Dose 1 TAB; Start 07/07/16 at 13:00 Guaifenesin/ Codeine Phosphate 5 ml 5 ml Q6H PRN PO COUGH Last administered on 07/10/16at 14:35; Admin Dose 5 ML; Start 07/10/16 at 14:30 Vancomycin HCl/ Sodium Chloride (Vancocin/NS) 500 ml @ 125 mls/hr Q24H IVPB Last administered on 07/13/16 20:06; Admin Dose 125 MLS/HR; Start 07/11/16 at 20:00 Levofloxacin 500 mg 500 mg DAILY@06 PO Last administered on 07/14/16at 06:19; Admin Dose 500 MG; Start 07/13/16 at 06:00 Cefepime HCl (Maxipime 1gm/50 ml (Pmx)) 50 ml @ 100 mls/hr Q12 IVPB Last administered on 07/13/16at 21:22; Admin Dose 100 MLS/HR; Start 07/12/16 at 21: 00 Insulin Glargine (Lantus) 33 unit HS SC ; Start 07/14/16 at 21:00 ROMANA DIAZ NP Jul 14, 2016 10:59
--- NOTE | 2016-07-14 11:00 | CONS ---
Date/Time of Note Date/Time of Note DATE: 07/14/16 TIME: 10:49 Assessment/Plan Assessment/Plan Chief Complaint/Hosp Course ID PROGRESS NOTE TOTAL ABX DAY # 12: Vanco IV, Cefepime, Levaquin 24H INTERVAL SUMMARY * Improving, no complaints, VSS, no fevers, WBC normalized * CXR 07/13 =RUL slightly improved PNA * MICROBIOLOGY: Sputum culture on 07/03 grew Staphylococcus aureus. Influenza swab was negative. Urine culture negative. Stool for C diff negative. Kemar: 07/03/16 Rcvd: 07/03/16 Source: SPUTUM Sp Descrip: Procedure Result Microbiology GRAM STAIN Final POLYMORPH. LEUKOCYTE 1+ GRAM POS COCCI IN PAIRS RARE RESPIRATORY CULTURE Final Organism 1 STAPHYLOCOCCUS AUREUS QUANTITY RARE Organism 2 NORMAL RESPIRATORY FE QUANTITY SCANT GROWTH S AUREUS M.I.C. RX --------- --- CEFAZOLIN S CIPROFLOXACIN <=0.5 S CLINDAMYCIN <=0.25 S DOXYCYCLINE S ERYTHROMYCIN 0.5 S GENTAMICIN <=0.5 S LEVOFLOXACIN 0.5 S OXACILLIN 0.5 S PENICILLIN-G >=0.5 R RIFAMPIN <=0.5 S VANCOMYCIN <=0.5 S TRIMETHOPRIM/SULFAMETHOXAZOLE <=10 S ANTIMICROBIALS: 1. Vancomycin. 2. Levaquin 3. Cefepime PHYSICAL EXAMINATION: GENERAL: Overweight [place] speaking M, VSS, NAD HEENT: Unremarkable NECK: Supple, trachea midline. CHEST: Rise symmetrical. Breath sounds diminished to bases. HEART: Pulse RRR ABDOMEN: Soft. EXTREMITIES: No cyanosis. ID ASSESSMENT: 55 yo Obese M admit with: 1. Acute on chronic respiratory failure. 2. Right upper lobe consolidation with parapneumonic effusion consistent with pneumonia = Complicated polymicrobial (+)Staph Aureus sputum w/(+)Legionella urine antigen 3. COPD - predominantly emphysema/chronic bronchitis 4. Acute renal failure. (-)MRSA Nares screen CURRENT ABX: Vanco IV, Cefepime, Levaquin s/p Azith, Ceftriaxone ID RECOMMENDATIONS/PLAN: Much improved on current ABX -> Taper to PO ABX if pulmonary concurs . Problems: Consultation Date/Type/Reason Admit Date/Time Jul 02, 2016 at 09:58 Initial Consult Date Type of Consultation: ID Referring Provider: NARENDRA CHAWLA MD Exam/Review of Systems Vital Signs Vitals Vital Signs Date Time Temp Pulse Resp B/P Pulse Ox O2 Delivery O2 Flow Rate FiO2 07/14/16 08:52 78 18 97 Nasal Cannula 2.0 07/14/16 07:42 98.1 168/83 07/10/16 21:50 28 Intake and Output 07/13/16 07/13/16 07/14/16 15:00 23:00 07:00 Intake Total 850 ml 1300 ml Output Total 1500 ml 1600 ml Balance -650 ml -300 ml Results Result Diagram: 07/14/16 0542 07/14/16 0542 Results 24 hrs Laboratory Tests Test 07/13/16 11:34 07/13/16 13:33 07/13/16 16:59 07/13/16 20:42 Bedside Glucose 98 82 200 232 H Test 07/14/16 02:00 07/14/16 05:42 07/14/16 07:46 Bedside Glucose 227 H 244 H Anion Gap 13 Basophils # 0.0 Basophils % 0.3 Blood Morphology Comment Blood Urea Nitrogen 27 H Calcium Level 7.8 L Carbon Dioxide Level 30 Chloride Level 101 Creatinine 1.79 H Eosinophils # 0.1 Eosinophils % 0.8 Glucose Level 291 #H Hematocrit 40.4 L Hemoglobin 13.2 L Lymphocytes # 1.7 Lymphocytes % 19.8 Magnesium Level 1.8 Mean Corpuscular Hemoglobin 26.1 L Mean Corpuscular Hemoglobin Concent 32.7 Mean Corpuscular Volume 79.9 L Mean Platelet Volume 8.1 Monocytes # 0.7 Monocytes % 8.0 Neutrophils # 6.2 Neutrophils % 71.1 Nucleated Red Blood Cells # 0.0 Nucleated Red Blood Cells % 0.0 Phosphorus Level 3.0 Platelet Count 181 # Potassium Level 3.6 Red Blood Count 5.06 Red Cell Distribution Width 17.6 H Sodium Level 140 White Blood Count 8.7 Medications Medications Current Medications Aspirin (Aspirin) 81 mg DAILY PO Last administered on 07/14/16 08:10; Admin Dose 81 MG; Start 07/03/16 at 09:00 Carvedilol (Coreg) 6.25 mg BID PO Last administered on 07/14/16 08:11; Admin Dose 6.25 MG; Start 07/02/16 at 21:00 Clopidogrel Bisulfate (plaVIX) 75 mg DAILY PO Last administered on 07/14/16 08:10; Admin Dose 75 MG; Start 07/03/16 at 09:00 Hydralazine HCl (Apresoline) 10 mg Q8 PO Last administered on 07/14/16 06:19 ; Admin Dose 10 MG; Start 07/02/16 at 14:00 Isosorbide Dinitrate (Isordil) 20 mg TID PO Last administered on 07/14/16 08: 10; Admin Dose 20 MG; Start 07/02/16 at 13:00 Ranolazine (Ranexa) 1,000 mg Q12 PO Last administered on 07/14/16at 08:10; Admin Dose 1,000 MG; Start 07/02/16 at 21:00 Atorvastatin Calcium (Lipitor) 80 mg HS PO Last administered on 07/03/16 21: 21; Admin Dose 80 MG; Start 07/02/16 at 21:00; Status Future Hold Ondansetron HCl (Zofran Inj) 4 mg Q6H PRN IV NAUSEA AND/OR VOMITING Last administered on 07/11/16 13:10; Admin Dose 4 MG; Start 07/02/16 at 11:30 Acetaminophen (Tylenol Tab) 650 mg Q6H PRN PO PAIN LEVEL 1-3 OR FEVER Last administered on 07/05/16at 21:52; Admin Dose 650 MG; Start 07/02/16 at 11:30 Acetaminophen (Tylenol Supp) 650 mg Q6H PRN [place] PAIN LEVEL 1-3 OR FEVER; Start 07/02/16 at 11:30 Acetaminophen/ Hydrocodone Bitart ([place] (5/325)) 1 tab Q6H PRN PO MODERATE PAIN LEVEL 4-6 Last administered on 07/07/16at 09:11; Admin Dose 1 TAB; Start 07/02/16 at 11:30 Docusate Sodium (Colace) 100 mg Q12H PRN PO CONSTIPATION; Start 07/02/16 at 11 :30 Famotidine (Pepcid) 20 mg Q12 PO Last administered on 07/14/16at 08:10; Admin Dose 20 MG; Start 07/02/16 at 21:00 Heparin Sodium (Porcine) (Heparin (5000 Units/0.5 ml)) 5,000 unit Q12 SC Last administered on 07/14/16at 08:09; Admin Dose 5,000 UNIT; Start 07/02/16 at 21: 00 Miscellaneous Information 1 ea NOTE XX ; Start 07/02/16 at 12:00 Glucose (Glutose) 15 gm Q15M PRN PO DECREASED GLUCOSE; Start 07/02/16 at 12:00 Glucose (Glutose) 22.5 gm Q15M PRN PO DECREASED GLUCOSE; Start 07/02/16 at 12: 00 Dextrose (D50w Syringe) 25 ml Q15M PRN IV DECREASED GLUCOSE; Start 07/02/16 at 12:00 Dextrose (D50w Syringe) 50 ml Q15M PRN IV DECREASED GLUCOSE; Start 07/02/16 at 12:00 Glucagon (Glucagen) 1 mg Q15M PRN IM DECREASED GLUCOSE; Start 07/02/16 at 12: 00 Glucose (Glutose) 15 gm Q15M PRN BUCCAL DECREASED GLUCOSE; Start 07/02/16 at 12:00 Hydralazine HCl 10 mg 10 mg Q6H PRN IV SBP>160; Start 07/02/16 at 15:00 Sodium Chloride (NS) 1,000 ml @ 40 mls/hr Q24H IV Last administered on at 06:36; Admin Dose 40 MLS/HR; Start 07/02/16 at 15:00 Fish Oil (Fish Oil) 1,000 mg BID PO Last administered on 07/14/16 08:14; Admin Dose 1,000 MG; Start 07/04/16 at 21:00 Lorazepam (Ativan) 1 mg Q6H PRN IV anxiety; Start 07/05/16 at 14:00 Zolpidem Tartrate (Ambien) 5 mg HS PRN PO INSOMNIA; Start 07/05/16 at 14:00 Lorazepam (Ativan) 1 mg Q6H PRN IM anxiety; Start 07/05/16 at 15:00 Alprazolam (Xanax) 1 mg TID PRN PO ANXIETY Last administered on 07/05/16 21: 52; Admin Dose 1 MG; Start 07/05/16 at 21:00 Diagnostic Test (Pha) (Accucheck) 1 ea 02 XX Last administered on 07/14/16at 02 :01; Admin Dose 1 EA; Start 07/08/16 at 02:00 Hydromorphone HCl (Dilaudid) 0.5 mg Q4H PRN IV PAIN Last administered on 08:08; Admin Dose 0.5 MG; Start 07/07/16 at 13:00 Oxycodone/ Acetaminophen (Percocet (5/ 325)) 1 tab Q4H PRN PO PAIN Last administered on 07/13/16at 00:13; Admin Dose 1 TAB; Start 07/07/16 at 13:00 Guaifenesin/ Codeine Phosphate 5 ml 5 ml Q6H PRN PO COUGH Last administered on 07/10/16at 14:35; Admin Dose 5 ML; Start 07/10/16 at 14:30 Vancomycin HCl/ Sodium Chloride (Vancocin/NS) 500 ml @ 125 mls/hr Q24H IVPB Last administered on 07/13/16 20:06; Admin Dose 125 MLS/HR; Start 07/11/16 at 20:00 Levofloxacin 500 mg 500 mg DAILY@06 PO Last administered on 07/14/16 06:19; Admin Dose 500 MG; Start 07/13/16 at 06:00 Cefepime HCl (Maxipime 1gm/50 ml (Pmx)) 50 ml @ 100 mls/hr Q12 IVPB Last administered on 12/30/16at 21:22; Admin Dose 100 MLS/HR; Start 07/12/16 at 21: 00 Insulin Glargine (Lantus) 33 unit HS SC ; Start 07/14/16 at 21:00 WAN MEYERS NP Jul 14, 2016 10:59
[2016-07-14] MEDS: SOD CHLORIDE 0.9% 1,000 ML IV SCH (15:00)
--- NOTE | 2016-07-14 15:41 | CONS ---
Date/Time of Note Date/Time of Note DATE: 07/14/16 TIME: 15:40 Assessment/Plan Assessment/Plan Chief Complaint/Hosp Course IMPRESSION: 1. The patient has pneumonia./EMPHYSEMA/legionella pneumonia 2. jovani w ckd stable 3. Underlying chronic kidney disease. 4. Diabetes mellitus. 5. Hypertension. 6. Anemia. 7. EDEMA 8. Obesity. 9. Dyslipidemia. 10 hypernatremia on diuretic BETTER 11 leg edema+ plan f/u bmp LASIX Problems: Consultation Date/Type/Reason Admit Date/Time Jul 02, 2016 at 09:58 Type of Consultation: renal Referring Provider: NARENDRA CHAWLA MD 24 HR Interval Summary Constitutional: requiring O2 Exam/Review of Systems Vital Signs Vitals Vital Signs Date Time Temp Pulse Resp B/P Pulse Ox O2 Delivery O2 Flow Rate FiO2 07/14/16 12:57 80 18 96 Nasal Cannula 2.0 07/14/16 11:29 98.4 156/81 07/10/16 21:50 28 Intake and Output 07/13/16 07/13/16 07/14/16 15:00 23:00 07:00 Intake Total 850 ml 1300 ml Output Total 1500 ml 1600 ml Balance -650 ml -300 ml Exam Respiratory: diminished breath sounds Cardiovascular: regular rate and rhythm Gastrointestinal: soft Musculoskeletal: nl extremities to inspection Extremities: normal pulses Results Result Diagram: 07/14/16 0542 07/14/16 0542 Results 24 hrs Laboratory Tests Test 07/13/16 16:59 07/13/16 20:42 07/14/16 02:00 07/14/16 05:42 Bedside Glucose 200 232 H 227 H Anion Gap 13 Basophils # 0.0 Basophils % 0.3 Blood Morphology Comment Blood Urea Nitrogen 27 H Calcium Level 7.8 L Carbon Dioxide Level 30 Chloride Level 101 Creatinine 1.79 H Eosinophils # 0.1 Eosinophils % 0.8 Glucose Level 291 #H Hematocrit 40.4 L Hemoglobin 13.2 L Lymphocytes # 1.7 Lymphocytes % 19.8 Magnesium Level 1.8 Mean Corpuscular Hemoglobin 26.1 L Mean Corpuscular Hemoglobin Concent 32.7 Mean Corpuscular Volume 79.9 L Mean Platelet Volume 8.1 Monocytes # 0.7 Monocytes % 8.0 Neutrophils # 6.2 Neutrophils % 71.1 Nucleated Red Blood Cells # 0.0 Nucleated Red Blood Cells % 0.0 Phosphorus Level 3.0 Platelet Count 181 # Potassium Level 3.6 Red Blood Count 5.06 Red Cell Distribution Width 17.6 H Sodium Level 140 White Blood Count 8.7 Test 07/14/16 07:46 07/14/16 11:56 Bedside Glucose 244 H 138 Medications Medications Current Medications Aspirin (Aspirin) 81 mg DAILY PO Last administered on 07/14/16 08:10; Admin Dose 81 MG; Start 07/03/16 at 09:00 Carvedilol (Coreg) 6.25 mg BID PO Last administered on 07/14/16 08:11; Admin Dose 6.25 MG; Start 07/02/16 at 21:00 Clopidogrel Bisulfate (plaVIX) 75 mg DAILY PO Last administered on 07/14/16 08:10; Admin Dose 75 MG; Start 07/03/16 at 09:00 Hydralazine HCl (Apresoline) 10 mg Q8 PO Last administered on 07/14/16 14:21 ; Admin Dose 10 MG; Start 07/02/16 at 14:00 Isosorbide Dinitrate (Isordil) 20 mg TID PO Last administered on 07/14/16 14: 20; Admin Dose 20 MG; Start 07/02/16 at 13:00 Ranolazine (Ranexa) 1,000 mg Q12 PO Last administered on 07/14/16 08:10; Admin Dose 1,000 MG; Start 07/02/16 at 21:00 Atorvastatin Calcium (Lipitor) 80 mg HS PO Last administered on 07/03/16 21: 21; Admin Dose 80 MG; Start 07/02/16 at 21:00; Status Future Hold Ondansetron HCl (Zofran Inj) 4 mg Q6H PRN IV NAUSEA AND/OR VOMITING Last administered on 07/11/16 13:10; Admin Dose 4 MG; Start 07/02/16 at 11:30 Acetaminophen (Tylenol Tab) 650 mg Q6H PRN PO PAIN LEVEL 1-3 OR FEVER Last administered on 07/05/16 21:52; Admin Dose 650 MG; Start 07/02/16 at 11:30 Acetaminophen (Tylenol Supp) 650 mg Q6H PRN OR PAIN LEVEL 1-3 OR FEVER; Start 07/02/16 at 11:30 Acetaminophen/ Hydrocodone Bitart ([place] (5/325)) 1 tab Q6H PRN PO MODERATE PAIN LEVEL 4-6 Last administered on 07/07/16at 09:11; Admin Dose 1 TAB; Start 07/02/16 at 11:30 Docusate Sodium (Colace) 100 mg Q12H PRN PO CONSTIPATION; Start 07/02/16 at 11 :30 Famotidine (Pepcid) 20 mg Q12 PO Last administered on 07/14/16at 08:10; Admin Dose 20 MG; Start 07/02/16 at 21:00 Heparin Sodium (Porcine) (Heparin (5000 Units/0.5 ml)) 5,000 unit Q12 SC Last administered on 07/14/16at 08:09; Admin Dose 5,000 UNIT; Start 07/02/16 at 21: 00 Miscellaneous Information 1 ea NOTE XX ; Start 07/02/16 at 12:00 Glucose (Glutose) 15 gm Q15M PRN PO DECREASED GLUCOSE; Start 07/02/16 at 12:00 Glucose (Glutose) 22.5 gm Q15M PRN PO DECREASED GLUCOSE; Start 07/02/16 at 12: 00 Dextrose (D50w Syringe) 25 ml Q15M PRN IV DECREASED GLUCOSE; Start 07/02/16 at 12:00 Dextrose (D50w Syringe) 50 ml Q15M PRN IV DECREASED GLUCOSE; Start 07/02/16 at 12:00 Glucagon (Glucagen) 1 mg Q15M PRN IM DECREASED GLUCOSE; Start 07/02/16 at 12: 00 Glucose (Glutose) 15 gm Q15M PRN BUCCAL DECREASED GLUCOSE; Start 07/02/16 at 12:00 Hydralazine HCl 10 mg 10 mg Q6H PRN IV SBP>160; Start 07/02/16 at 15:00 Sodium Chloride (NS) 1,000 ml @ 40 mls/hr Q24H IV Last administered on at 06:36; Admin Dose 40 MLS/HR; Start 07/02/16 at 15:00 Fish Oil (Fish Oil) 1,000 mg BID PO Last administered on 07/14/16at 08:14; Admin Dose 1,000 MG; Start 07/04/16 at 21:00 Lorazepam (Ativan) 1 mg Q6H PRN IV anxiety; Start 07/05/16 at 14:00 Zolpidem Tartrate (Ambien) 5 mg HS PRN PO INSOMNIA; Start 07/05/16 at 14:00 Lorazepam (Ativan) 1 mg Q6H PRN IM anxiety; Start 07/05/16 at 15:00 Alprazolam (Xanax) 1 mg TID PRN PO ANXIETY Last administered on 07/05/16at 21: 52; Admin Dose 1 MG; Start 07/05/16 at 21:00 Diagnostic Test (Pha) (Accucheck) 1 ea 02 XX Last administered on 07/14/16at 02 :01; Admin Dose 1 EA; Start 07/08/16 at 02:00 Hydromorphone HCl (Dilaudid) 0.5 mg Q4H PRN IV PAIN Last administered on at 08:08; Admin Dose 0.5 MG; Start 07/07/16 at 13:00 Oxycodone/ Acetaminophen (Percocet (5/ 325)) 1 tab Q4H PRN PO PAIN Last administered on 07/13/16at 00:13; Admin Dose 1 TAB; Start 07/07/16 at 13:00 Guaifenesin/ Codeine Phosphate 5 ml 5 ml Q6H PRN PO COUGH Last administered on 07/10/16at 14:35; Admin Dose 5 ML; Start 07/10/16 at 14:30 Vancomycin HCl/ Sodium Chloride (Vancocin/NS) 500 ml @ 125 mls/hr Q24H IVPB Last administered on 07/13/16at 20:06; Admin Dose 125 MLS/HR; Start 07/11/16 at 20:00 Levofloxacin 500 mg 500 mg DAILY@06 PO Last administered on 07/14/16at 06:19; Admin Dose 500 MG; Start 07/13/16 at 06:00 Cefepime HCl (Maxipime 1gm/50 ml (Pmx)) 50 ml @ 100 mls/hr Q12 IVPB Last administered on 07/14/16at 09:00; Admin Dose 100 MLS/HR; Start 07/12/16 at 21: 00 Insulin Glargine (Lantus) 33 unit HS SC ; Start 07/14/16 at 21:00 Miscellaneous Information (*Rx Drug Level Order Reminder*) 1 ONCE ONCE XX ; Start 07/14/16 at 19:00; Stop 07/14/16 at 19:01 ROBB ALBERT MD Jul 14, 2016 15:41
--- NOTE | 2016-07-14 18:20 | PN ---
DATE: 07/14/2016 SUBJECTIVE: The patient is slowly improving, less shortness of breath. OBJECTIVE: VITAL SIGNS: Temperature is 98, pulse 80, blood pressure 156/81, O2 sat 96% on 2 L nasal cannula. NECK: Supple. No JVD or lymphadenopathy. CARDIAC: S1, S2; no added sounds or murmurs. CHEST: Diminished air entry bilaterally. ABDOMEN: Soft, nontender. No guarding or rebound. EXTREMITIES: No cyanosis, clubbing, edema. NEUROLOGIC: Grossly intact. No focal deficits. LABORATORIES: White count 8.7, hemoglobin 13.2, platelets within normal limits. BUN 27, creatinine 1.79. IMPRESSION AND PLAN 1. Dense right upper lobe pneumonia. 2. Status post hypoxemic respiratory failure. 3. History of tobacco use The patient will require: 1. Continued antibiotics. 2. Repeat chest x-ray in the a.m. 3. May require home O2. 4. Deep venous thrombosis and gastrointestinal prophylaxis. Dictated By: MAXX ACOSTA/GABY Conf#: [id number] DID#: [id number]
[2016-07-14] MEDS ORDERED: INSULIN GLARGINE [LANtus] 3 ML PEN SC SCH (21:00)
[2016-07-14] MEDS: VANCOMYCIN 1.75 GM in NS 500 ML IVPB SCH (21:35)
[2016-07-15] VITALS (10 sets, daily range): BP systolic 129–159; BP diastolic 66–81; PULSE 72–87; RESP 16–20
[2016-07-15] MEDS: ALBUTEROL/IPRATROPIUM (NEB) 3 ML AMP HHN SCH ×6 (01:00→21:19)
[2016-07-15] MEDS: ACCUCHECK XX SCH (02:00)
[2016-07-15] MEDS: HYDROmorphONE 1 MG/ML SYG IV PRN ×4 (03:28→20:58)
[2016-07-15] MEDS: FUROSEMIDE 20 MG INJ IV SCH ×2 (06:24→20:49)
[2016-07-15] MEDS: LEVOFLOXACIN 500 MG TAB PO SCH (06:24)
[2016-07-15 06:59] LABS: EOSINOPHILS # 0.1 10^3/ul (0.0-0.5); EOSINOPHILS % 0.4 % (0.0-7.0); HEMATOCRIT 40.7 % (42.0-52.0); HEMOGLOBIN 13.3 g/dl (14.0-18.0); LYMPHOCYTES # 1.5 10^3/ul (0.8-2.9); LYMPHOCYTES % 10.4 % (15.0-51.0); MEAN CORPUSCULAR HEMOGLOBIN 26.1 pg (29.0-33.0); MEAN CORPUSCULAR HGB CONC 32.8 g/dl (32.0-37.0); MEAN CORPUSCULAR VOLUME 79.6 fl (82.0-101.0); MEAN PLATELET VOLUME 8.7 fl (7.4-10.4); MONOCYTE # 0.5 10^3/ul (0.3-0.9); MONOCYTES % 3.6 % (0.0-11.0); NEUTROPHIL # 12.1 10^3/ul (1.6-7.5); NEUTROPHILS % 85.6 % (39.0-77.0); PLATELET COUNT 164 10^3/UL (140-440); RED BLOOD COUNT 5.11 10^6/ul (4.70-6.10); RED CELL DISTRIBUTION WIDTH 17.2 % (11.5-14.5); UNCORRECTED WBC 14.2 10^3/ul (4.8-10.8); WHITE BLOOD COUNT 14.2 10^3/ul (4.8-10.8)
[2016-07-15] MEDS: ONDANSETRON 4 MG INJ IV PRN (07:04)
[2016-07-15 07:16] LABS: CONDITION 1; LH ANALYZER COMMENTS 1
[2016-07-15 07:23] LABS: ALBUMIN 2.6 g/dl (3.3-4.9); POTASSIUM 4.1 mmol/L (3.5-5.1)
[2016-07-15 07:25] LABS: CREATININE 1.79 mg/dl (0.61-1.24)
[2016-07-15 07:26] LABS: ALBUMIN/GLOBULIN RATIO 0.92; BILIRUBIN,INDIRECT 0.3 mg/dl (0-1.1); BILIRUBIN,TOTAL 0.3 mg/dl (0.2-1.3); TOTAL PROTEIN 5.4 g/dl (6.1-8.1)
[2016-07-15 07:27] LABS: CALCIUM 8.3 mg/dl (8.4-10.2)
[2016-07-15 07:30] LABS: MAGNESIUM 1.5 mg/dl (1.7-2.5); PHOSPHORUS 3.2 mg/dl (2.5-4.9)
[2016-07-15] MEDS: CEFEPIME 1GM/50 ML (PMX) 50 ML IVPB SCH (08:33)
[2016-07-15] MEDS: FISH OIL 1,000 MG CAP PO SCH ×2 (08:33→20:48)
[2016-07-15] MEDS: CLOPIDOGREL 75 MG TAB PO SCH (08:34)
[2016-07-15] MEDS: ASPIRIN 81 MG TAB PO SCH (08:34)
[2016-07-15] MEDS: RANOLAZINE (SR) 500 MG TAB PO SCH ×2 (08:34→20:47)
[2016-07-15] MEDS: FAMOTIDINE 20 MG TAB PO SCH ×2 (08:34→20:47)
[2016-07-15] MEDS: ISOSORBIDE DINITRATE 20 MG TAB PO SCH ×3 (08:35→20:47)
[2016-07-15] MEDS: INSULIN ASPART [NOVOLOG] 3 ML PEN SC SCH ×7 (08:36→20:52)
[2016-07-15] MEDS: HEPARIN 5,000 UNIT/0.5 ML SYG SC SCH ×2 (08:38→20:51)
--- NOTE | 2016-07-15 12:33 | PN ---
Date/Time of Note Date/Time of Note DATE: 07/15/16 TIME: 12:32 Assessment/Plan VTE Prophylaxis VTE Prophylaxis Intervention: heparin Lines/Catheters IV C[facility]ter Type (from [facility] Peripheral IV Urinary Cath still in place: No Assessment/Plan Chief Complaint/Hosp Course 1. Right upper lobe Pneumonia. Legionella pneumonia. Chest x-ray showing persistent right upper lobe infiltrate. Sputum CS with staph aureus. ->Continue Rocephin/Zithromax/Vancomycin. Infectious diseases following. 2. COPD exacerbation with bronchospasm. Improved. ->.Pulmonary on board.Continue bronchodilators. S/P steroids. 3. Sepsis secondary to pneumonia: Resolving. Will monitor. 4. Acute kidney injury on chronic kidney disease. SHERYL likely secondary to sepsis vs diuretic induced. Creatinine trending up. -> Nephrology on board. Monitor renal function closely and avoid nephrotoxins as much as possible. 5. Essential hypertension: Stable. On Isordil / hydralazine / Coreg. 6. Ischemic cardiomyopathy. Continue BBs. Unable to use ACEIs because of worsening renal function. 7. Coronary artery disease, status post multiple percutaneous coronary interventions: On ASA/ Plavix/ Statin / BB / hydralazine/nitrates. 8. Congestive heart failure exacerbation. Acute on chronic. Systolic dysfunction. . Continue medical management with Coreg, Imdur, and aspirin. Diuretics as per nephrology. 9. Hyperglycemia with Type 2 diabetes. A1C 9.8: non compliance Continue accu checks, ISS, pre-meals and Lantus to 36 units. The patient is non-complaint with dietary restrictions and the patient refuses insulin (Lantus ) too. 10. Dyslipidemia. Hold Lipitor due to liver fxn. Continue Fish oil. May need to change to low dose Zocor up on DC with LFT monitoring. 11. Hepatomegaly with Transaminase elevation-likely concurrent illness. Monitor closely. Avoid hepatotoxins as much as possible. 12. Obesity. Weight reduction advised 13. Hx of Nicotine abuse. Patient denied this before and now says he was a smoker. DVT prophylaxis: Heparin PUD prophylaxis: Pepcid PLAN: Continue antibiotics as per infectious diseases. Case was discussed with pulmonary. Pulmonary recommended continuing the patient on current antibiotics. Repeat chest CT scan to be ordered as per pulmonary. Will replete magnesium. Case discussed with . Problems: Subjective 24 Hr Interval Summary Free Text/Dictation Had an episode of nausea and vomiting in the AM. Blood sugars running high. Patient not compliant with dietary restrictions. Patient refusing Lantus insulin. Exam/Review of Systems Vital Signs Vitals Vital Signs Date Time Temp Pulse Resp B/P Pulse Ox O2 Delivery O2 Flow Rate FiO2 07/15/16 12:04 80 07/15/16 08:39 2.0 07/15/16 08:39 18 97 Nasal Cannula 07/15/16 08:00 98.0 142/76 Intake and Output 07/14/16 07/14/16 07/15/16 15:00 23:00 07:00 Intake Total 240 ml 1050 ml 1450 ml Output Total 1200 ml 1300 ml Balance 240 ml -150 ml 150 ml Exam General: Morbidly obese build 55 year-old male lying in bed in mild respiratory distress. HEENT: Normocephalic, atraumatic. Eyes: Anicteric sclerae, conjunctivae clear. ENT: Nasal septum midline, oral mucosa moist. Neck: Supple, no JVD noticed. Respiratory: Bilaterally diminished breath sounds. No use of accessory muscles of respiration. Fine rales on the right side. Cardiovascular: S1, S2 heard. No murmurs or gallops. Abdomen: Soft, nontender, and protuberant. Bowel sounds positive in all 4 quadrants. Genitourinary: Deferred. Extremities: No cyanosis, no clubbing. Bilateral lower extremity 2+ edema. Peripheral pulses palpable. Neurologic: Cranial nerves II through XII grossly intact. The patient is awake, alert, and oriented. Skin: Normal skin turgor. No skin rashes. Results Result Diagram: 07/15/16 0520 07/15/16 0520 Results 24 hrs Laboratory Tests Test 07/14/16 17:56 07/14/16 19:22 07/14/16 20:21 07/15/16 03:32 Bedside Glucose 144 63 L 197 Vancomycin Level Trough 15.1 Test 07/15/16 05:20 07/15/16 07:57 07/15/16 11:51 Alanine Aminotransferase (ALT/SGPT) 78 H Albumin 2.6 L Albumin/Globulin Ratio 0.92 Alkaline Phosphatase 134 H Anion Gap 12 Aspartate Amino Transf (AST/SGOT) 56 H Basophils # 0.0 Basophils % 0.0 Blood Morphology Comment Blood Urea Nitrogen 27 H Calcium Level 8.3 L Carbon Dioxide Level 34 H Chloride Level 99 Creatinine 1.79 H Direct Bilirubin 0.00 Eosinophils # 0.1 Eosinophils % 0.4 Globulin 2.80 Glucose Level 213 Hematocrit 40.7 L Hemoglobin 13.3 L Indirect Bilirubin 0.3 Lymphocytes # 1.5 Lymphocytes % 10.4 L Magnesium Level 1.5 L Mean Corpuscular Hemoglobin 26.1 L Mean Corpuscular Hemoglobin Concent 32.8 Mean Corpuscular Volume 79.6 L Mean Platelet Volume 8.7 Monocytes # 0.5 Monocytes % 3.6 Neutrophils # 12.1 H Neutrophils % 85.6 H Nucleated Red Blood Cells # 0.0 Nucleated Red Blood Cells % 0.0 Phosphorus Level 3.2 Platelet Count 164 Potassium Level 4.1 Red Blood Count 5.11 Red Cell Distribution Width 17.2 H Sodium Level 141 Total Bilirubin 0.3 Total Protein 5.4 L White Blood Count 14.2 #H Bedside Glucose 232 H 283 H Medications Medications Current Medications Aspirin (Aspirin) 81 mg DAILY PO Last administered on 07/15/16 08:34; Admin Dose 81 MG; Start 07/03/16 at 09:00 Carvedilol (Coreg) 6.25 mg BID PO Last administered on 07/15/16 08:34; Admin Dose 6.25 MG; Start 07/02/16 at 21:00 Clopidogrel Bisulfate (plaVIX) 75 mg DAILY PO Last administered on 07/15/16 08: 34; Admin Dose 75 MG; Start 07/03/16 at 09:00 Hydralazine HCl (Apresoline) 10 mg Q8 PO Last administered on 07/15/16 06:25; Admin Dose 10 MG; Start 07/02/16 at 14:00 Isosorbide Dinitrate (Isordil) 20 mg TID PO Last administered on 07/15/16 08:35 ; Admin Dose 20 MG; Start 07/02/16 at 13:00 Ranolazine (Ranexa) 1,000 mg Q12 PO Last administered on 07/15/16 08:34; Admin Dose 1,000 MG; Start 07/02/16 at 21:00 Atorvastatin Calcium (Lipitor) 80 mg HS PO Last administered on 07/03/16at 21: 21; Admin Dose 80 MG; Start 07/02/16 at 21:00; Status Future Hold Ondansetron HCl (Zofran Inj) 4 mg Q6H PRN IV NAUSEA AND/OR VOMITING Last administered on 07/15/16 07:04; Admin Dose 4 MG; Start 07/02/16 at 11:30 Acetaminophen (Tylenol Tab) 650 mg Q6H PRN PO PAIN LEVEL 1-3 OR FEVER Last administered on 07/05/16at 21:52; Admin Dose 650 MG; Start 07/02/16 at 11:30 Acetaminophen (Tylenol Supp) 650 mg Q6H PRN [place] PAIN LEVEL 1-3 OR FEVER; Start 07/02/16 at 11:30 Acetaminophen/ Hydrocodone Bitart ([place] (5/325)) 1 tab Q6H PRN PO MODERATE PAIN LEVEL 4-6 Last administered on 07/07/16at 09:11; Admin Dose 1 TAB; Start 07/02/16 at 11:30 Docusate Sodium (Colace) 100 mg Q12H PRN PO CONSTIPATION; Start 07/02/16 at 11 :30 Famotidine (Pepcid) 20 mg Q12 PO Last administered on 07/15/16 08:34; Admin Dose 20 MG; Start 07/02/16 at 21:00 Heparin Sodium (Porcine) (Heparin (5000 Units/0.5 ml)) 5,000 unit Q12 SC Last administered on 07/15/16 08:38; Admin Dose 5,000 UNIT; Start 07/02/16 at 21:00 Miscellaneous Information 1 ea NOTE XX ; Start 07/02/16 at 12:00 Glucose (Glutose) 15 gm Q15M PRN PO DECREASED GLUCOSE; Start 07/02/16 at 12:00 Glucose (Glutose) 22.5 gm Q15M PRN PO DECREASED GLUCOSE; Start 07/02/16 at 12: 00 Dextrose (D50w Syringe) 25 ml Q15M PRN IV DECREASED GLUCOSE; Start 07/02/16 at 12:00 Dextrose (D50w Syringe) 50 ml Q15M PRN IV DECREASED GLUCOSE; Start 07/02/16 at 12:00 Glucagon (Glucagen) 1 mg Q15M PRN IM DECREASED GLUCOSE; Start 07/02/16 at 12: 00 Glucose (Glutose) 15 gm Q15M PRN BUCCAL DECREASED GLUCOSE; Start 07/02/16 at 12:00 Hydralazine HCl 10 mg 10 mg Q6H PRN IV SBP>160; Start 07/02/16 at 15:00 Sodium Chloride (NS) 1,000 ml @ 40 mls/hr Q24H IV Last administered on 06:36; Admin Dose 40 MLS/HR; Start 07/02/16 at 15:00 Fish Oil (Fish Oil) 1,000 mg BID PO Last administered on 07/15/16 08:33; Admin Dose 1,000 MG; Start 07/04/16 at 21:00 Lorazepam (Ativan) 1 mg Q6H PRN IV anxiety; Start 07/05/16 at 14:00 Zolpidem Tartrate (Ambien) 5 mg HS PRN PO INSOMNIA; Start 07/05/16 at 14:00 Lorazepam (Ativan) 1 mg Q6H PRN IM anxiety; Start 07/05/16 at 15:00 Alprazolam (Xanax) 1 mg TID PRN PO ANXIETY Last administered on 07/05/16 21: 52; Admin Dose 1 MG; Start 07/05/16 at 21:00 Diagnostic Test (Pha) (Accucheck) 1 ea 02 XX Last administered on 07/15/16 02: 00; Admin Dose 1 EA; Start 07/08/16 at 02:00 Hydromorphone HCl (Dilaudid) 0.5 mg Q4H PRN IV PAIN Last administered on 10:09; Admin Dose 0.5 MG; Start 07/07/16 at 13:00 Oxycodone/ Acetaminophen (Percocet (5/ 325)) 1 tab Q4H PRN PO PAIN Last administered on 07/13/16at 00:13; Admin Dose 1 TAB; Start 07/07/16 at 13:00 Guaifenesin/ Codeine Phosphate 5 ml 5 ml Q6H PRN PO COUGH Last administered on 07/10/16 14:35; Admin Dose 5 ML; Start 07/10/16 at 14:30 Vancomycin HCl/ Sodium Chloride (Vancocin/NS) 500 ml @ 125 mls/hr Q24H IVPB Last administered on 07/14/16at 21:35; Admin Dose 125 MLS/HR; Start 07/11/16 at 20:00 Levofloxacin 500 mg 500 mg DAILY@06 PO Last administered on 07/15/16 06:24; Admin Dose 500 MG; Start 07/13/16 at 06:00 Cefepime HCl (Maxipime 1gm/50 ml (Pmx)) 50 ml @ 100 mls/hr Q12 IVPB Last administered on 07/15/16 08:33; Admin Dose 100 MLS/HR; Start 07/12/16 at 21:00 Insulin Glargine (Lantus) 33 unit HS SC ; Start 07/14/16 at 21:00 ROMANA DIAZ NP Jul 15, 2016 12:33
[2016-07-15] MEDS ORDERED: MAGNESIUM SULFATE 3 GM in SOD CHLORIDE 0.9% 100 ML IVPB ONE (13:00)
[2016-07-15] MEDS: SOD CHLORIDE 0.9% 1,000 ML IV SCH (15:00)
--- NOTE | 2016-07-15 15:13 | CONS ---
Date/Time of Note Date/Time of Note DATE: 07/15/16 TIME: 15:12 Assessment/Plan Assessment/Plan Chief Complaint/Hosp Course IMPRESSION: 1. The patient has pneumonia./EMPHYSEMA/legionella pneumonia 2. jovani w ckd stable 3. Underlying chronic kidney disease. 4. Diabetes mellitus. 5. Hypertension. 6. Anemia. 7. EDEMA 8. Obesity. 9. Dyslipidemia. 10 hypernatremia on diuretic BETTER 11 leg edema+ plan f/u bmp LASIX tid Problems: Consultation Date/Type/Reason Admit Date/Time Jul 02, 2016 at 09:58 Type of Consultation: renal Referring Provider: NARENDRA CHAWLA MD 24 HR Interval Summary Constitutional: other (sob+) Exam/Review of Systems Vital Signs Vitals Vital Signs Date Time Temp Pulse Resp B/P Pulse Ox O2 Delivery O2 Flow Rate FiO2 07/15/16 13:22 83 18 96 Nasal Cannula 2.0 07/15/16 12:00 97.8 146/72 Intake and Output 07/14/16 07/14/16 07/15/16 15:00 23:00 07:00 Intake Total 240 ml 1050 ml 1450 ml Output Total 1200 ml 1300 ml Balance 240 ml -150 ml 150 ml Exam Respiratory: diminished breath sounds Cardiovascular: regular rate and rhythm Gastrointestinal: soft Extremities: edema (++) Results Result Diagram: 07/15/16 0520 07/15/16 0520 Results 24 hrs Laboratory Tests Test 07/14/16 17:56 07/14/16 19:22 07/14/16 20:21 07/15/16 03:32 Bedside Glucose 144 63 L 197 Vancomycin Level Trough 15.1 Test 07/15/16 05:20 07/15/16 07:57 07/15/16 11:51 Alanine Aminotransferase (ALT/SGPT) 78 H Albumin 2.6 L Albumin/Globulin Ratio 0.92 Alkaline Phosphatase 134 H Anion Gap 12 Aspartate Amino Transf (AST/SGOT) 56 H Basophils # 0.0 Basophils % 0.0 Blood Morphology Comment Blood Urea Nitrogen 27 H Calcium Level 8.3 L Carbon Dioxide Level 34 H Chloride Level 99 Creatinine 1.79 H Direct Bilirubin 0.00 Eosinophils # 0.1 Eosinophils % 0.4 Globulin 2.80 Glucose Level 213 Hematocrit 40.7 L Hemoglobin 13.3 L Indirect Bilirubin 0.3 Lymphocytes # 1.5 Lymphocytes % 10.4 L Magnesium Level 1.5 L Mean Corpuscular Hemoglobin 26.1 L Mean Corpuscular Hemoglobin Concent 32.8 Mean Corpuscular Volume 79.6 L Mean Platelet Volume 8.7 Monocytes # 0.5 Monocytes % 3.6 Neutrophils # 12.1 H Neutrophils % 85.6 H Nucleated Red Blood Cells # 0.0 Nucleated Red Blood Cells % 0.0 Phosphorus Level 3.2 Platelet Count 164 Potassium Level 4.1 Red Blood Count 5.11 Red Cell Distribution Width 17.2 H Sodium Level 141 Total Bilirubin 0.3 Total Protein 5.4 L White Blood Count 14.2 #H Bedside Glucose 232 H 283 H Medications Medications Current Medications Aspirin (Aspirin) 81 mg DAILY PO Last administered on 07/15/16 08:34; Admin Dose 81 MG; Start 07/03/16 at 09:00 Carvedilol (Coreg) 6.25 mg BID PO Last administered on 07/15/16 08:34; Admin Dose 6.25 MG; Start 07/02/16 at 21:00 Clopidogrel Bisulfate (plaVIX) 75 mg DAILY PO Last administered on 07/15/16 08: 34; Admin Dose 75 MG; Start 07/03/16 at 09:00 Hydralazine HCl (Apresoline) 10 mg Q8 PO Last administered on 07/15/16 14:08; Admin Dose 10 MG; Start 07/02/16 at 14:00 Isosorbide Dinitrate (Isordil) 20 mg TID PO Last administered on 07/15/16 08:35 ; Admin Dose 20 MG; Start 07/02/16 at 13:00 Ranolazine (Ranexa) 1,000 mg Q12 PO Last administered on 07/15/16 08:34; Admin Dose 1,000 MG; Start 07/02/16 at 21:00 Atorvastatin Calcium (Lipitor) 80 mg HS PO Last administered on 07/03/16at 21: 21; Admin Dose 80 MG; Start 07/02/16 at 21:00; Status Future Hold Ondansetron HCl (Zofran Inj) 4 mg Q6H PRN IV NAUSEA AND/OR VOMITING Last administered on 07/15/16 07:04; Admin Dose 4 MG; Start 07/02/16 at 11:30 Acetaminophen (Tylenol Tab) 650 mg Q6H PRN PO PAIN LEVEL 1-3 OR FEVER Last administered on 07/05/16at 21:52; Admin Dose 650 MG; Start 07/02/16 at 11:30 Acetaminophen (Tylenol Supp) 650 mg Q6H PRN [place] PAIN LEVEL 1-3 OR FEVER; Start 07/02/16 at 11:30 Acetaminophen/ Hydrocodone Bitart ([place] (5/325)) 1 tab Q6H PRN PO MODERATE PAIN LEVEL 4-6 Last administered on 07/07/16at 09:11; Admin Dose 1 TAB; Start 07/02/16 at 11:30 Docusate Sodium (Colace) 100 mg Q12H PRN PO CONSTIPATION; Start 07/02/16 at 11 :30 Famotidine (Pepcid) 20 mg Q12 PO Last administered on 07/15/16 08:34; Admin Dose 20 MG; Start 07/02/16 at 21:00 Heparin Sodium (Porcine) (Heparin (5000 Units/0.5 ml)) 5,000 unit Q12 SC Last administered on 07/15/16 08:38; Admin Dose 5,000 UNIT; Start 07/02/16 at 21:00 Miscellaneous Information 1 ea NOTE XX ; Start 07/02/16 at 12:00 Glucose (Glutose) 15 gm Q15M PRN PO DECREASED GLUCOSE; Start 07/02/16 at 12:00 Glucose (Glutose) 22.5 gm Q15M PRN PO DECREASED GLUCOSE; Start 07/02/16 at 12: 00 Dextrose (D50w Syringe) 25 ml Q15M PRN IV DECREASED GLUCOSE; Start 07/02/16 at 12:00 Dextrose (D50w Syringe) 50 ml Q15M PRN IV DECREASED GLUCOSE; Start 07/02/16 at 12:00 Glucagon (Glucagen) 1 mg Q15M PRN IM DECREASED GLUCOSE; Start 07/02/16 at 12: 00 Glucose (Glutose) 15 gm Q15M PRN BUCCAL DECREASED GLUCOSE; Start 07/02/16 at 12:00 Hydralazine HCl 10 mg 10 mg Q6H PRN IV SBP>160; Start 07/02/16 at 15:00 Sodium Chloride (NS) 1,000 ml @ 40 mls/hr Q24H IV Last administered on at 06:36; Admin Dose 40 MLS/HR; Start 07/02/16 at 15:00 Fish Oil (Fish Oil) 1,000 mg BID PO Last administered on 07/15/16 08:33; Admin Dose 1,000 MG; Start 07/04/16 at 21:00 Lorazepam (Ativan) 1 mg Q6H PRN IV anxiety; Start 07/05/16 at 14:00 Zolpidem Tartrate (Ambien) 5 mg HS PRN PO INSOMNIA; Start 07/05/16 at 14:00 Lorazepam (Ativan) 1 mg Q6H PRN IM anxiety; Start 07/05/16 at 15:00 Alprazolam (Xanax) 1 mg TID PRN PO ANXIETY Last administered on 07/05/16at 21: 52; Admin Dose 1 MG; Start 07/05/16 at 21:00 Diagnostic Test (Pha) (Accucheck) 1 ea 02 XX Last administered on 07/15/16 02: 00; Admin Dose 1 EA; Start 07/08/16 at 02:00 Hydromorphone HCl (Dilaudid) 0.5 mg Q4H PRN IV PAIN Last administered on 14:09; Admin Dose 0.5 MG; Start 07/07/16 at 13:00 Oxycodone/ Acetaminophen (Percocet (5/ 325)) 1 tab Q4H PRN PO PAIN Last administered on 07/13/16at 00:13; Admin Dose 1 TAB; Start 07/07/16 at 13:00 Guaifenesin/ Codeine Phosphate 5 ml 5 ml Q6H PRN PO COUGH Last administered on 07/10/16at 14:35; Admin Dose 5 ML; Start 07/10/16 at 14:30 Vancomycin HCl/ Sodium Chloride (Vancocin/NS) 500 ml @ 125 mls/hr Q24H IVPB Last administered on 07/14/16at 21:35; Admin Dose 125 MLS/HR; Start 07/11/16 at 20:00 Levofloxacin 500 mg 500 mg DAILY@06 PO Last administered on 07/15/16 06:24; Admin Dose 500 MG; Start 07/13/16 at 06:00 Cefepime HCl 50 ml @ 100 mls/hr Q12 IVPB Last administered on 07/15/16 08:33; Admin Dose 100 MLS/HR; Start 07/12/16 at 21:00 Magnesium Sulfate/ Sodium Chloride (Magnesium Sulfate/NS) 106 ml @ 35.333 mls/ hr ONCE ONCE IVPB Last administered on 07/15/16t 14:08; Admin Dose 35.333 MLS/ HR; Start 07/15/16 at 13:00; Stop 07/15/16 at 15:59 Insulin Glargine (Lantus) 36 unit HS SC ; Start 07/15/16 at 21:00 ROBB ALBERT MD Jul 15, 2016 15:13
--- NOTE | 2016-07-15 16:06 | CONS ---
Date/Time of Note Date/Time of Note DATE: 07/15/16 TIME: 16:00 Assessment/Plan Assessment/Plan Chief Complaint/Hosp Course ID PROGRESS NOTE TOTAL ABX DAY # 13: Vanco IV, Cefepime, Levaquin 24H INTERVAL SUMMARY * Lethargic, VSS, no fevers * WBC elevated today -> s/p IV steroids 07/07 * CXR 07/13 =RUL slightly improved PNA * MICROBIOLOGY: Sputum culture on 07/03 grew Staphylococcus aureus. Influenza swab was negative. Urine culture negative. Stool for C diff negative. Kemar: 07/03/16 Rcvd: 07/03/16 Source: SPUTUM Sp Descrip: Procedure Result Microbiology GRAM STAIN Final POLYMORPH. LEUKOCYTE 1+ GRAM POS COCCI IN PAIRS RARE RESPIRATORY CULTURE Final Organism 1 STAPHYLOCOCCUS AUREUS QUANTITY RARE Organism 2 NORMAL RESPIRATORY FE QUANTITY SCANT GROWTH S AUREUS M.I.C. RX --------- --- CEFAZOLIN S CIPROFLOXACIN <=0.5 S CLINDAMYCIN <=0.25 S DOXYCYCLINE S ERYTHROMYCIN 0.5 S GENTAMICIN <=0.5 S LEVOFLOXACIN 0.5 S OXACILLIN 0.5 S PENICILLIN-G >=0.5 R RIFAMPIN <=0.5 S VANCOMYCIN <=0.5 S TRIMETHOPRIM/SULFAMETHOXAZOLE <=10 S ANTIMICROBIALS: 1. Vancomycin. 2. Levaquin 3. Cefepime PHYSICAL EXAMINATION: GENERAL: Overweight Canadian speaking M, VSS, NAD HEENT: Unremarkable NECK: Supple, trachea midline. CHEST: Rise symmetrical. Breath sounds diminished to bases. HEART: Pulse RRR ABDOMEN: Soft. EXTREMITIES: No cyanosis. ID ASSESSMENT: 55 yo Obese M admit with: 1. Acute on chronic respiratory failure. 2. Right upper lobe consolidation with parapneumonic effusion consistent with pneumonia = Complicated polymicrobial (+)Staph Aureus sputum w/(+)Legionella urine antigen 3. COPD - predominantly emphysema/chronic bronchitis 4. Acute renal failure. (-)MRSA Nares screen CURRENT ABX: Vanco IV, Cefepime, Levaquin s/p Azith, Ceftriaxone ID RECOMMENDATIONS/PLAN: Much improved on current ABX -> Rising WBC likely due to prior IV Steroids; however on Triple ABX for NEEMA + Legionella At risk for opportunistic yeast, C.Diff on 3-ABX w/rising WBC Will taper to Levaquin 500mg and stop the Vanco IV due to renal insufficiency, stop Cefepime See how he tolerates ABX taper . . Problems: Consultation Date/Type/Reason Admit Date/Time Jul 02, 2016 at 09:58 Type of Consultation: ID Referring Provider: NARENDRA CHAWLA MD Exam/Review of Systems Vital Signs Vitals Vital Signs Date Time Temp Pulse Resp B/P Pulse Ox O2 Delivery O2 Flow Rate FiO2 07/15/16 13:22 83 18 96 Nasal Cannula 2.0 07/15/16 12:00 97.8 146/72 Intake and Output 07/14/16 07/14/16 07/15/16 15:00 23:00 07:00 Intake Total 240 ml 1050 ml 1450 ml Output Total 1200 ml 1300 ml Balance 240 ml -150 ml 150 ml Results Result Diagram: 07/15/16 0520 07/15/16 0520 Results 24 hrs Laboratory Tests Test 07/14/16 17:56 07/14/16 19:22 07/14/16 20:21 07/15/16 03:32 Bedside Glucose 144 63 L 197 Vancomycin Level Trough 15.1 Test 07/15/16 05:20 07/15/16 07:57 07/15/16 11:51 Alanine Aminotransferase (ALT/SGPT) 78 H Albumin 2.6 L Albumin/Globulin Ratio 0.92 Alkaline Phosphatase 134 H Anion Gap 12 Aspartate Amino Transf (AST/SGOT) 56 H Basophils # 0.0 Basophils % 0.0 Blood Morphology Comment Blood Urea Nitrogen 27 H Calcium Level 8.3 L Carbon Dioxide Level 34 H Chloride Level 99 Creatinine 1.79 H Direct Bilirubin 0.00 Eosinophils # 0.1 Eosinophils % 0.4 Globulin 2.80 Glucose Level 213 Hematocrit 40.7 L Hemoglobin 13.3 L Indirect Bilirubin 0.3 Lymphocytes # 1.5 Lymphocytes % 10.4 L Magnesium Level 1.5 L Mean Corpuscular Hemoglobin 26.1 L Mean Corpuscular Hemoglobin Concent 32.8 Mean Corpuscular Volume 79.6 L Mean Platelet Volume 8.7 Monocytes # 0.5 Monocytes % 3.6 Neutrophils # 12.1 H Neutrophils % 85.6 H Nucleated Red Blood Cells # 0.0 Nucleated Red Blood Cells % 0.0 Phosphorus Level 3.2 Platelet Count 164 Potassium Level 4.1 Red Blood Count 5.11 Red Cell Distribution Width 17.2 H Sodium Level 141 Total Bilirubin 0.3 Total Protein 5.4 L White Blood Count 14.2 #H Bedside Glucose 232 H 283 H Medications Medications Current Medications Aspirin (Aspirin) 81 mg DAILY PO Last administered on 07/15/16 08:34; Admin Dose 81 MG; Start 07/03/16 at 09:00 Carvedilol (Coreg) 6.25 mg BID PO Last administered on 07/15/16 08:34; Admin Dose 6.25 MG; Start 07/02/16 at 21:00 Clopidogrel Bisulfate (plaVIX) 75 mg DAILY PO Last administered on 07/15/16 08: 34; Admin Dose 75 MG; Start 07/03/16 at 09:00 Hydralazine HCl (Apresoline) 10 mg Q8 PO Last administered on 07/15/16 14:08; Admin Dose 10 MG; Start 07/02/16 at 14:00 Isosorbide Dinitrate (Isordil) 20 mg TID PO Last administered on 07/15/16 08:35 ; Admin Dose 20 MG; Start 07/02/16 at 13:00 Ranolazine (Ranexa) 1,000 mg Q12 PO Last administered on 07/15/16 08:34; Admin Dose 1,000 MG; Start 07/02/16 at 21:00 Atorvastatin Calcium (Lipitor) 80 mg HS PO Last administered on 07/03/16at 21: 21; Admin Dose 80 MG; Start 07/02/16 at 21:00; Status Future Hold Ondansetron HCl (Zofran Inj) 4 mg Q6H PRN IV NAUSEA AND/OR VOMITING Last administered on 07/15/16 07:04; Admin Dose 4 MG; Start 07/02/16 at 11:30 Acetaminophen (Tylenol Tab) 650 mg Q6H PRN PO PAIN LEVEL 1-3 OR FEVER Last administered on 07/05/16at 21:52; Admin Dose 650 MG; Start 07/02/16 at 11:30 Acetaminophen (Tylenol Supp) 650 mg Q6H PRN DE PAIN LEVEL 1-3 OR FEVER; Start 07/02/16 at 11:30 Acetaminophen/ Hydrocodone Bitart ([place] (5/325)) 1 tab Q6H PRN PO MODERATE PAIN LEVEL 4-6 Last administered on 07/07/16at 09:11; Admin Dose 1 TAB; Start 07/02/16 at 11:30 Docusate Sodium (Colace) 100 mg Q12H PRN PO CONSTIPATION; Start 07/02/16 at 11 :30 Famotidine (Pepcid) 20 mg Q12 PO Last administered on 07/15/16 08:34; Admin Dose 20 MG; Start 07/02/16 at 21:00 Heparin Sodium (Porcine) (Heparin (5000 Units/0.5 ml)) 5,000 unit Q12 SC Last administered on 07/15/16 08:38; Admin Dose 5,000 UNIT; Start 07/02/16 at 21:00 Miscellaneous Information 1 ea NOTE XX ; Start 07/02/16 at 12:00 Glucose (Glutose) 15 gm Q15M PRN PO DECREASED GLUCOSE; Start 07/02/16 at 12:00 Glucose (Glutose) 22.5 gm Q15M PRN PO DECREASED GLUCOSE; Start 07/02/16 at 12: 00 Dextrose (D50w Syringe) 25 ml Q15M PRN IV DECREASED GLUCOSE; Start 07/02/16 at 12:00 Dextrose (D50w Syringe) 50 ml Q15M PRN IV DECREASED GLUCOSE; Start 07/02/16 at 12:00 Glucagon (Glucagen) 1 mg Q15M PRN IM DECREASED GLUCOSE; Start 07/02/16 at 12: 00 Glucose (Glutose) 15 gm Q15M PRN BUCCAL DECREASED GLUCOSE; Start 07/02/16 at 12:00 Hydralazine HCl 10 mg 10 mg Q6H PRN IV SBP>160; Start 07/02/16 at 15:00 Sodium Chloride (NS) 1,000 ml @ 40 mls/hr Q24H IV Last administered on at 06:36; Admin Dose 40 MLS/HR; Start 07/02/16 at 15:00 Fish Oil (Fish Oil) 1,000 mg BID PO Last administered on 07/15/16 08:33; Admin Dose 1,000 MG; Start 07/04/16 at 21:00 Lorazepam (Ativan) 1 mg Q6H PRN IV anxiety; Start 07/05/16 at 14:00 Zolpidem Tartrate (Ambien) 5 mg HS PRN PO INSOMNIA; Start 07/05/16 at 14:00 Lorazepam (Ativan) 1 mg Q6H PRN IM anxiety; Start 07/05/16 at 15:00 Alprazolam (Xanax) 1 mg TID PRN PO ANXIETY Last administered on 07/05/16at 21: 52; Admin Dose 1 MG; Start 07/05/16 at 21:00 Diagnostic Test (Pha) (Accucheck) 1 ea 02 XX Last administered on 07/15/16 02: 00; Admin Dose 1 EA; Start 07/08/16 at 02:00 Hydromorphone HCl (Dilaudid) 0.5 mg Q4H PRN IV PAIN Last administered on 14:09; Admin Dose 0.5 MG; Start 07/07/16 at 13:00 Oxycodone/ Acetaminophen (Percocet (5/ 325)) 1 tab Q4H PRN PO PAIN Last administered on 07/13/16at 00:13; Admin Dose 1 TAB; Start 07/07/16 at 13:00 Guaifenesin/ Codeine Phosphate 5 ml 5 ml Q6H PRN PO COUGH Last administered on 07/10/16at 14:35; Admin Dose 5 ML; Start 07/10/16 at 14:30 Vancomycin HCl/ Sodium Chloride (Vancocin/NS) 500 ml @ 125 mls/hr Q24H IVPB Last administered on 07/14/16at 21:35; Admin Dose 125 MLS/HR; Start 07/11/16 at 20:00 Levofloxacin 500 mg 500 mg DAILY@06 PO Last administered on 07/15/16 06:24; Admin Dose 500 MG; Start 07/13/16 at 06:00 Cefepime HCl (Maxipime 1gm/50 ml (Pmx)) 50 ml @ 100 mls/hr Q12 IVPB Last administered on 07/15/16 08:33; Admin Dose 100 MLS/HR; Start 07/12/16 at 21:00 Insulin Glargine (Lantus) 36 unit HS SC ; Start 07/15/16 at 21:00 Furosemide (Lasix) 20 mg TID IV ; Start 07/15/16 at 21:00 WAN MEYERS NP Jul 15, 2016 16:06
--- NOTE | 2016-07-15 19:18 | RADRPT ---
PROCEDURE: XR Chest. CLINICAL INDICATION: Shortness of breath/pneumonia TECHNIQUE: Chest AP portable. COMPARISON: 07/13/[address] chest 07/11/2016 FINDINGS: The mediastinal structures are unremarkable. There is mild cardiomegaly. The pulmonary vascularity is normal. There are normal lung volumes. There is an increase in the RUL consolidation (pneumoni a). There is a small right pleural effusion. The axial skeleton is unremarkable. IMPRESSION: Mild cardiomegaly Increase in RUL consolidation (pneumonia) Small right pleural effusion RPTAT: HGDB .Best Steel MD, Date Time Electronically viewed and signed by .Best Steel MD, on 07/15/2016 16:43 .B/
[2016-07-15] MEDS: INSULIN GLARGINE [LANtus] 3 ML PEN SC SCH (20:53)
[2016-07-16] VITALS (10 sets, daily range): BP systolic 117–164; BP diastolic 65–81; PULSE 70–81; RESP 16–20
[2016-07-16] MEDS: HYDROmorphONE 1 MG/ML SYG IV PRN ×5 (01:07→20:47)
[2016-07-16] MEDS: ALBUTEROL/IPRATROPIUM (NEB) 3 ML AMP HHN SCH ×6 (01:10→21:17)
[2016-07-16] MEDS: ACCUCHECK XX SCH (02:00)
[2016-07-16] MEDS: LEVOFLOXACIN 500 MG TAB PO SCH (05:50)
[2016-07-16 07:28] LABS: EOSINOPHILS # 0.1 10^3/ul (0.0-0.5); EOSINOPHILS % 0.7 % (0.0-7.0); HEMATOCRIT 40.3 % (42.0-52.0); HEMOGLOBIN 13.3 g/dl (14.0-18.0); LYMPHOCYTES # 1.6 10^3/ul (0.8-2.9); LYMPHOCYTES % 20.6 % (15.0-51.0); MEAN CORPUSCULAR HEMOGLOBIN 26.1 pg (29.0-33.0); MEAN CORPUSCULAR VOLUME 79.1 fl (82.0-101.0); MEAN PLATELET VOLUME 8.9 fl (7.4-10.4); MONOCYTE # 0.7 10^3/ul (0.3-0.9); MONOCYTES % 9.5 % (0.0-11.0); NEUTROPHIL # 5.3 10^3/ul (1.6-7.5); NEUTROPHILS % 69.2 % (39.0-77.0); PLATELET COUNT 142 10^3/UL (140-440); RED BLOOD COUNT 5.09 10^6/ul (4.70-6.10); RED CELL DISTRIBUTION WIDTH 17.5 % (11.5-14.5); UNCORRECTED WBC 7.7 10^3/ul (4.8-10.8); WHITE BLOOD COUNT 7.7 10^3/ul (4.8-10.8)
[2016-07-16 07:30] LABS: CONDITION 1; LH ANALYZER COMMENTS 1
[2016-07-16 08:01] LABS: CREATININE 1.69 mg/dl (0.61-1.24)
[2016-07-16 08:02] LABS: CALCIUM 8.3 mg/dl (8.4-10.2); MAGNESIUM 2.1 mg/dl (1.7-2.5); PHOSPHORUS 3.4 mg/dl (2.5-4.9)
[2016-07-16] MEDS: RANOLAZINE (SR) 500 MG TAB PO SCH ×2 (08:06→20:59)
[2016-07-16] MEDS: CLOPIDOGREL 75 MG TAB PO SCH (08:06)
[2016-07-16] MEDS: FAMOTIDINE 20 MG TAB PO SCH ×2 (08:06→21:00)
[2016-07-16] MEDS: ISOSORBIDE DINITRATE 20 MG TAB PO SCH ×3 (08:06→21:02)
[2016-07-16] MEDS: ASPIRIN 81 MG TAB PO SCH (08:06)
[2016-07-16] MEDS: HEPARIN 5,000 UNIT/0.5 ML SYG SC SCH ×2 (08:07→21:03)
[2016-07-16] MEDS: INSULIN ASPART [NOVOLOG] 3 ML PEN SC SCH ×7 (08:08→21:00)
[2016-07-16] MEDS: FUROSEMIDE 20 MG INJ IV SCH ×2 (08:08→12:05)
[2016-07-16] MEDS: FISH OIL 1,000 MG CAP PO SCH ×2 (08:12→21:01)
--- NOTE | 2016-07-16 11:51 | PN ---
Date/Time of Note Date/Time of Note DATE: 07/16/16 TIME: 11:47 Assessment/Plan VTE Prophylaxis VTE Prophylaxis Intervention: other Lines/Catheters IV [facility] Urinary Cath still in place: No Assessment/Plan Problems: (1) Tobacco use Status: Chronic Comment: He has again been counseled today about the rationale to not smoke given his other medical issues (2) Hyperlipidemia associated with type 2 diabetes mellitus Status: Chronic Comment: He is on appropriate treatment will bring up the dosage to standard dosing protocol (3) Essential hypertension Status: Chronic Comment: Adequately controlled. This would be an ideal place to use the DAMON inhibitor but is my colleagues who pointed out they do not wish to given his chronic kidney disease. As such we will then titrate and smooth out the other medications including hydralazine; nitrates; and especially the beta-hugo. Please see below (4) Systolic and diastolic CHF, acute on chronic Status: Chronic Comment: He is on a cardioselective beta-hugo nitrates hydralazine and diuretics. Given the renal insufficiency my colleagues of opted not to use DAMON inhibitors (5) Chronic kidney disease, stage 2, mildly decreased GFR Status: Chronic Comment: Noted and stable over prolonged period of time; as precaution will make sure to check a postvoid residual to make sure we are not dealing with a partial obstructive uropathy (6) Chronic obstructive pulmonary disease (COPD) Status: Chronic Comment: He is on treatment for this. We will try and fine-tune the medication regimen. Please note given this he should not be on a nonselective beta-hugo and as such his regimen has been adjusted Qualifiers: COPD type: emphysema Emphysema type: unspecified Qualified Code: J43.9 - Pulmonary emphysema, unspecified emphysema type (7) Legionella pneumonia Status: Acute Comment: On appropriate antibiotics as per ID (8) Diabetes mellitus type 2, uncontrolled Status: Chronic Comment: Working on bringing his sugars under control. Qualifiers: Diabetes mellitus complication status: with hyperglycemia Diabetes mellitus terminal make up operator insulin use: without terminal make up operator use Qualified Code: E11.65 - Uncontrolled type 2 diabetes mellitus with hyperglycemia, without long-term current use of insulin Subjective 24 Hr Interval Summary Free Text/Dictation Patient reports he feels better than he did on admission although not perfectly normal. Constitutional: improved Respiratory: pleuritic pain, shortness of breath Cardiovascular: no complaints Gastrointestinal: no complaints Genitourinary: no complaints, other (Symptoms consistent with BPH AUA score equal to 10) Musculoskeletal: no complaints Neurologic: no complaints Exam/Review of Systems Vital Signs Vitals Vital Signs Date Time Temp Pulse Resp B/P Pulse Ox O2 Delivery O2 Flow Rate FiO2 07/16/16 09:44 77 18 98 Nasal Cannula 2.0 07/16/16 07:38 98.1 149/70 07/16/16 05:37 28 Intake and Output 07/15/16 07/15/16 07/16/16 14:59 22:59 06:59 Intake Total 240 ml 926 ml 300 ml Output Total 700 ml Balance 240 ml 926 ml -400 ml Exam Constitutional: alert, oriented Neck: non-tender, supple Respiratory: clear to auscultation, normal air movement Cardiovascular: nl pulses, regular rate and rhythm Gastrointestinal: nl liver, spleen, non-tender, soft Results Result Diagram: 07/16/16 0535 07/16/16 0535 Results 24 hrs Laboratory Tests Test 07/15/16 11:51 07/15/16 17:06 07/15/16 20:43 07/16/16 03:01 Bedside Glucose 283 H 178 274 H 152 Test 07/16/16 05:35 07/16/16 07:23 Anion Gap 11 Basophils # 0.0 Basophils % 0.0 Blood Morphology Comment Blood Urea Nitrogen 28 H Calcium Level 8.3 L Carbon Dioxide Level 34 H Chloride Level 98 Creatinine 1.69 H Eosinophils # 0.1 Eosinophils % 0.7 Glucose Level 151 Hematocrit 40.3 L Hemoglobin 13.3 L Lymphocytes # 1.6 Lymphocytes % 20.6 Magnesium Level 2.1 Mean Corpuscular Hemoglobin 26.1 L Mean Corpuscular Hemoglobin Concent 33.0 Mean Corpuscular Volume 79.1 L Mean Platelet Volume 8.9 Monocytes # 0.7 Monocytes % 9.5 Neutrophils # 5.3 Neutrophils % 69.2 Nucleated Red Blood Cells # 0.0 Nucleated Red Blood Cells % 0.0 Phosphorus Level 3.4 Platelet Count 142 Potassium Level 4.0 Red Blood Count 5.09 Red Cell Distribution Width 17.5 H Sodium Level 139 White Blood Count 7.7 # Bedside Glucose 149 Medications Medications Current Medications Aspirin (Aspirin) 81 mg DAILY PO Last administered on 07/16/16t 08:06; Admin Dose 81 MG; Start 07/03/16 at 09:00 Carvedilol (Coreg) 6.25 mg BID PO Last administered on 07/16/16 08:06; Admin Dose 6.25 MG; Start 07/02/16 at 21:00 Clopidogrel Bisulfate (plaVIX) 75 mg DAILY PO Last administered on 07/16/16 08: 06; Admin Dose 75 MG; Start 07/03/16 at 09:00 Hydralazine HCl (Apresoline) 10 mg Q8 PO Last administered on 07/16/16 05:51; Admin Dose 10 MG; Start 07/02/16 at 14:00 Isosorbide Dinitrate (Isordil) 20 mg TID PO Last administered on 07/16/16 08:06 ; Admin Dose 20 MG; Start 07/02/16 at 13:00 Ranolazine (Ranexa) 1,000 mg Q12 PO Last administered on 07/16/16 08:06; Admin Dose 1,000 MG; Start 07/02/16 at 21:00 Atorvastatin Calcium (Lipitor) 80 mg HS PO Last administered on 07/03/16at 21: 21; Admin Dose 80 MG; Start 07/02/16 at 21:00; Status Future Hold Ondansetron HCl (Zofran Inj) 4 mg Q6H PRN IV NAUSEA AND/OR VOMITING Last administered on 07/15/16 07:04; Admin Dose 4 MG; Start 07/02/16 at 11:30 Acetaminophen (Tylenol Tab) 650 mg Q6H PRN PO PAIN LEVEL 1-3 OR FEVER Last administered on 07/05/16at 21:52; Admin Dose 650 MG; Start 07/02/16 at 11:30 Acetaminophen (Tylenol Supp) 650 mg Q6H PRN [place] PAIN LEVEL 1-3 OR FEVER; Start 07/02/16 at 11:30 Acetaminophen/ Hydrocodone Bitart ([place] (5/325)) 1 tab Q6H PRN PO MODERATE PAIN LEVEL 4-6 Last administered on 07/07/16at 09:11; Admin Dose 1 TAB; Start 07/02/16 at 11:30 Docusate Sodium (Colace) 100 mg Q12H PRN PO CONSTIPATION; Start 07/02/16 at 11 :30 Famotidine (Pepcid) 20 mg Q12 PO Last administered on 07/16/16 08:06; Admin Dose 20 MG; Start 07/02/16 at 21:00 Heparin Sodium (Porcine) (Heparin (5000 Units/0.5 ml)) 5,000 unit Q12 SC Last administered on 07/16/16 08:07; Admin Dose 5,000 UNIT; Start 07/02/16 at 21:00 Miscellaneous Information 1 ea NOTE XX ; Start 07/02/16 at 12:00 Glucose (Glutose) 15 gm Q15M PRN PO DECREASED GLUCOSE; Start 07/02/16 at 12:00 Glucose (Glutose) 22.5 gm Q15M PRN PO DECREASED GLUCOSE; Start 07/02/16 at 12: 00 Dextrose (D50w Syringe) 25 ml Q15M PRN IV DECREASED GLUCOSE; Start 07/02/16 at 12:00 Dextrose (D50w Syringe) 50 ml Q15M PRN IV DECREASED GLUCOSE; Start 07/02/16 at 12:00 Glucagon (Glucagen) 1 mg Q15M PRN IM DECREASED GLUCOSE; Start 07/02/16 at 12: 00 Glucose (Glutose) 15 gm Q15M PRN BUCCAL DECREASED GLUCOSE; Start 07/02/16 at 12:00 Hydralazine HCl 10 mg 10 mg Q6H PRN IV SBP>160; Start 07/02/16 at 15:00 Sodium Chloride (NS) 1,000 ml @ 40 mls/hr Q24H IV Last administered on at 06:36; Admin Dose 40 MLS/HR; Start 07/02/16 at 15:00 Fish Oil (Fish Oil) 1,000 mg BID PO Last administered on 07/16/16 08:12; Admin Dose 1,000 MG; Start 07/04/16 at 21:00 Lorazepam (Ativan) 1 mg Q6H PRN IV anxiety; Start 07/05/16 at 14:00 Zolpidem Tartrate (Ambien) 5 mg HS PRN PO INSOMNIA; Start 07/05/16 at 14:00 Lorazepam (Ativan) 1 mg Q6H PRN IM anxiety; Start 07/05/16 at 15:00 Alprazolam (Xanax) 1 mg TID PRN PO ANXIETY Last administered on 07/05/16at 21: 52; Admin Dose 1 MG; Start 07/05/16 at 21:00 Diagnostic Test (Pha) (Accucheck) 1 ea 02 XX Last administered on 07/16/16 02: 00; Admin Dose 1 EA; Start 07/08/16 at 02:00 Hydromorphone HCl (Dilaudid) 0.5 mg Q4H PRN IV PAIN Last administered on 11:38; Admin Dose 0.5 MG; Start 07/07/16 at 13:00 Oxycodone/ Acetaminophen (Percocet (5/ 325)) 1 tab Q4H PRN PO PAIN Last administered on 07/13/16at 00:13; Admin Dose 1 TAB; Start 07/07/16 at 13:00 Guaifenesin/ Codeine Phosphate (Robitussin Ac Liquid Cup) 5 ml Q6H PRN PO COUGH Last administered on 07/10/16at 14:35; Admin Dose 5 ML; Start 07/10/16 at 14:30 Levofloxacin (Levaquin) 500 mg DAILY@06 PO Last administered on 07/16/16 05:50 ; Admin Dose 500 MG; Start 07/13/16 at 06:00 Insulin Glargine (Lantus) 36 unit HS SC Last administered on 07/15/16 20:53; Admin Dose 36 UNIT; Start 07/15/16 at 21:00 Furosemide (Lasix) 20 mg TID IV Last administered on 07/16/16 08:08; Admin Dose 20 MG; Start 07/15/16 at 21:00 AVA MICHAEL MD Jul 16, 2016 11:51
[2016-07-16 12:13] LABS: IRON 87 ug/dl (35-150)
[2016-07-16 12:22] LABS: TOTAL IRON BINDING CAPACITY 206 ug/dl (241-421)
[2016-07-16] MEDS: SOD CHLORIDE 0.9% 1,000 ML IV SCH (15:00)
--- NOTE | 2016-07-16 15:14 | CONS ---
Date/Time of Note Date/Time of Note DATE: 07/16/16 TIME: 15:11 Assessment/Plan Assessment/Plan Chief Complaint/Hosp Course ID PROGRESS NOTE TOTAL ABX DAY # 14: Levaquin s/p Vanco IV, Cefepim 24H INTERVAL SUMMARY * A.A/O sitting up @ bedside on supplemental O2 via NC, "Much better thank you" VSS, no fevers * WBC elevated -> s/p IV steroids 07/07 * CXR 07/13 =RUL slightly improved PNA * MICROBIOLOGY: Sputum culture on 07/03 grew Staphylococcus aureus. Influenza swab was negative. Urine culture negative. Stool for C diff negative. Kemar: 07/03/16 Rcvd: 07/03/16 Source: SPUTUM Sp Descrip: Procedure Result Microbiology GRAM STAIN Final POLYMORPH. LEUKOCYTE 1+ GRAM POS COCCI IN PAIRS RARE RESPIRATORY CULTURE Final Organism 1 STAPHYLOCOCCUS AUREUS QUANTITY RARE Organism 2 NORMAL RESPIRATORY FE QUANTITY SCANT GROWTH S AUREUS M.I.C. RX --------- --- CEFAZOLIN S CIPROFLOXACIN <=0.5 S CLINDAMYCIN <=0.25 S DOXYCYCLINE S ERYTHROMYCIN 0.5 S GENTAMICIN <=0.5 S LEVOFLOXACIN 0.5 S OXACILLIN 0.5 S PENICILLIN-G >=0.5 R RIFAMPIN <=0.5 S VANCOMYCIN <=0.5 S TRIMETHOPRIM/SULFAMETHOXAZOLE <=10 S ANTIMICROBIALS: 1. Vancomycin. 2. Levaquin 3. Cefepime PHYSICAL EXAMINATION: GENERAL: Overweight Burmese speaking M, VSS, NAD HEENT: Unremarkable NECK: Supple, trachea midline. CHEST: Rise symmetrical. Breath sounds diminished to bases. HEART: Pulse RRR ABDOMEN: Soft. EXTREMITIES: No cyanosis. ID ASSESSMENT: 55 yo Obese M admit with: 1. Acute on chronic respiratory failure. 2. Right upper lobe consolidation with parapneumonic effusion consistent with pneumonia = Complicated polymicrobial (+)Staph Aureus sputum w/(+)Legionella urine antigen 3. COPD - predominantly emphysema/chronic bronchitis 4. Acute renal failure. (-)MRSA Nares screen CURRENT ABX: Levaquin s/pVanco IV, Cefepime, s/p Azith, Ceftriaxone ID RECOMMENDATIONS/PLAN: Much improved on current ABX -> Rising WBC likely due to prior IV Steroids Continue Levaquin until clinical resolution of sxs = will cover both NEEMA + Legionella . Problems: Consultation Date/Type/Reason Admit Date/Time Jul 02, 2016 at 09:58 Type of Consultation: ID Referring Provider: NARENDRA CHAWLA MD Exam/Review of Systems Vital Signs Vitals Vital Signs Date Time Temp Pulse Resp B/P Pulse Ox O2 Delivery O2 Flow Rate FiO2 07/16/16 13:16 79 18 95 Nasal Cannula 2.0 07/16/16 11:47 98.0 137/81 07/16/16 05:37 28 Intake and Output 07/15/16 07/15/16 07/16/16 15:00 23:00 07:00 Intake Total 240 ml 926 ml 300 ml Output Total 700 ml Balance 240 ml 926 ml -400 ml Results Result Diagram: 07/16/16 0535 07/16/16 0535 Results 24 hrs Laboratory Tests Test 07/15/16 17:06 07/15/16 20:43 07/16/16 03:01 07/16/16 05:35 Bedside Glucose 178 274 H 152 Anion Gap 11 Basophils # 0.0 Basophils % 0.0 Blood Morphology Comment Blood Urea Nitrogen 28 H Calcium Level 8.3 L Carbon Dioxide Level 34 H Chloride Level 98 Creatinine 1.69 H Eosinophils # 0.1 Eosinophils % 0.7 Ferritin 302.0 H Glucose Level 151 Hematocrit 40.3 L Hemoglobin 13.3 L Iron Level 87 Lymphocytes # 1.6 Lymphocytes % 20.6 Magnesium Level 2.1 Mean Corpuscular Hemoglobin 26.1 L Mean Corpuscular Hemoglobin Concent 33.0 Mean Corpuscular Volume 79.1 L Mean Platelet Volume 8.9 Monocytes # 0.7 Monocytes % 9.5 Neutrophils # 5.3 Neutrophils % 69.2 Nucleated Red Blood Cells # 0.0 Nucleated Red Blood Cells % 0.0 Percent Iron Saturation 42 Phosphorus Level 3.4 Platelet Count 142 Potassium Level 4.0 Red Blood Count 5.09 Red Cell Distribution Width 17.5 H Sodium Level 139 Total Iron Binding Capacity 206 L White Blood Count 7.7 # Test 07/16/16 07:23 07/16/16 11:54 Bedside Glucose 149 82 Medications Medications Current Medications Aspirin (Aspirin) 81 mg DAILY PO Last administered on 07/16/16 08:06; Admin Dose 81 MG; Start 07/03/16 at 09:00 Clopidogrel Bisulfate (plaVIX) 75 mg DAILY PO Last administered on 07/16/16 08: 06; Admin Dose 75 MG; Start 07/03/16 at 09:00 Isosorbide Dinitrate (Isordil) 20 mg TID PO Last administered on 07/16/16 12:04 ; Admin Dose 20 MG; Start 07/02/16 at 13:00 Ranolazine (Ranexa) 1,000 mg Q12 PO Last administered on 07/16/16 08:06; Admin Dose 1,000 MG; Start 07/02/16 at 21:00 Atorvastatin Calcium (Lipitor) 80 mg HS PO Last administered on 07/03/16at 21: 21; Admin Dose 80 MG; Start 07/02/16 at 21:00; Status Future Hold Ondansetron HCl (Zofran Inj) 4 mg Q6H PRN IV NAUSEA AND/OR VOMITING Last administered on 07/15/16 07:04; Admin Dose 4 MG; Start 07/02/16 at 11:30 Acetaminophen (Tylenol Tab) 650 mg Q6H PRN PO PAIN LEVEL 1-3 OR FEVER Last administered on 07/05/16at 21:52; Admin Dose 650 MG; Start 07/02/16 at 11:30 Acetaminophen (Tylenol Supp) 650 mg Q6H PRN [place] PAIN LEVEL 1-3 OR FEVER; Start 07/02/16 at 11:30 Acetaminophen/ Hydrocodone Bitart ([place] (5/325)) 1 tab Q6H PRN PO MODERATE PAIN LEVEL 4-6 Last administered on 07/07/16at 09:11; Admin Dose 1 TAB; Start 07/02/16 at 11:30 Docusate Sodium (Colace) 100 mg Q12H PRN PO CONSTIPATION; Start 07/02/16 at 11 :30 Famotidine (Pepcid) 20 mg Q12 PO Last administered on 07/16/16 08:06; Admin Dose 20 MG; Start 07/02/16 at 21:00 Heparin Sodium (Porcine) (Heparin (5000 Units/0.5 ml)) 5,000 unit Q12 SC Last administered on 07/16/16 08:07; Admin Dose 5,000 UNIT; Start 07/02/16 at 21:00 Miscellaneous Information 1 ea NOTE XX ; Start 07/02/16 at 12:00 Glucose (Glutose) 15 gm Q15M PRN PO DECREASED GLUCOSE; Start 07/02/16 at 12:00 Glucose (Glutose) 22.5 gm Q15M PRN PO DECREASED GLUCOSE; Start 07/02/16 at 12: 00 Dextrose (D50w Syringe) 25 ml Q15M PRN IV DECREASED GLUCOSE; Start 07/02/16 at 12:00 Dextrose (D50w Syringe) 50 ml Q15M PRN IV DECREASED GLUCOSE; Start 07/02/16 at 12:00 Glucagon (Glucagen) 1 mg Q15M PRN IM DECREASED GLUCOSE; Start 07/02/16 at 12: 00 Glucose (Glutose) 15 gm Q15M PRN BUCCAL DECREASED GLUCOSE; Start 07/02/16 at 12:00 Hydralazine HCl (Apresoline) 10 mg Q6H PRN IV SBP>160; Start 07/02/16 at 15:00 Lorazepam (Ativan) 1 mg Q6H PRN IV anxiety; Start 07/05/16 at 14:00 Zolpidem Tartrate (Ambien) 5 mg HS PRN PO INSOMNIA; Start 07/05/16 at 14:00 Lorazepam (Ativan) 1 mg Q6H PRN IM anxiety; Start 07/05/16 at 15:00 Alprazolam (Xanax) 1 mg TID PRN PO ANXIETY Last administered on 07/05/16at 21: 52; Admin Dose 1 MG; Start 07/05/16 at 21:00 Diagnostic Test (Pha) (Accucheck) 1 ea 02 XX Last administered on 07/16/16 02: 00; Admin Dose 1 EA; Start 07/08/16 at 02:00 Hydromorphone HCl (Dilaudid) 0.5 mg Q4H PRN IV PAIN Last administered on 11:38; Admin Dose 0.5 MG; Start 07/07/16 at 13:00 Oxycodone/ Acetaminophen (Percocet (5/ 325)) 1 tab Q4H PRN PO PAIN Last administered on 07/13/16at 00:13; Admin Dose 1 TAB; Start 07/07/16 at 13:00 Guaifenesin/ Codeine Phosphate (Robitussin Ac Liquid Cup) 5 ml Q6H PRN PO COUGH Last administered on 07/10/16at 14:35; Admin Dose 5 ML; Start 07/10/16 at 14:30 Levofloxacin (Levaquin) 500 mg DAILY@06 PO Last administered on 07/16/16 05:50 ; Admin Dose 500 MG; Start 07/13/16 at 06:00 Insulin Glargine (Lantus) 36 unit HS SC Last administered on 07/15/16 20:53; Admin Dose 36 UNIT; Start 07/15/16 at 21:00 Fish Oil (Fish Oil) 2,000 mg BID PO ; Start 07/16/16 at 21:00 Hydralazine HCl (Apresoline) 25 mg Q12 PO ; Start 07/16/16 at 21:00 Metoprolol Succinate (Toprol Xl) 50 mg BID PO ; Start 07/16/16 at 21:00 Montelukast Sodium (Singulair) 10 mg HS PO ; Start 07/16/16 at 21:00 WAN MEYERS NP Jul 16, 2016 15:14
--- NOTE | 2016-07-16 15:16 | PN ---
DATE: 07/16/2016 SUBJECTIVE: The patient remains stable, no new events. Denies any significant shortness of breath. PHYSICAL EXAMINATION: VITAL SIGNS: Temperature 98, pulse 72, blood pressure 137/81, O2 saturation 95% on 2 liters. NECK: Supple. No JVD or lymphadenopathy. CARDIAC: S1, S2, no added sounds or murmurs. CHEST: Diminished air entry bilaterally. ABDOMEN: Soft, nontender. No guarding or rebound. EXTREMITIES: No cyanosis, clubbing, edema. NEUROLOGIC: Grossly intact. No focal deficits. LABORATORY DATA: White count down to 7.7, hemoglobin 13.3. Chemistry: BUN 28, creatinine 1.69. IMPRESSION AND PLAN: 1. Right upper lobe pneumonia. 2. Renal insufficiency, on IV diuretics. 3. History of diabetes. 4. History of tobacco use. Patient should continue on antibiotics. I will discontinue Lasix. We are still pending CT chest, n oncontrast, to evaluate the right upper lobe infiltrate. Hopefully, this has improved. Dictated By: MAXX ACOSTA/GABY Conf#: [id number] DID#: [id number]
--- NOTE | 2016-07-16 18:14 | RADRPT ---
PROCEDURE: CT Chest without contrast. CLINICAL INDICATION: Right pneumonia. TECHNIQUE: Helical axial sections were obtained through the chest without intravenous contrast enh ancement. Coronal and sagittal reformatted images were obtained from the axial source images. Total exam DLP is 605.73 mGy-cm. CTDIvol is 16.64 mGy. One or more of the following dose reduction miguel ángel hniques were used: Automated exposure control, adjustment of the mA and/or kV according to patient s ize, use of iterative reconstruction technique. COMPARISON: CT scan of the chest dated 07/11/2016. FINDINGS: There is consolidation in the right upper lobe laterally, unchanged from 07/11/2016. Mild atelectas is is present at both lung bases posteriorly with right worse than left, also unchanged. Mild emphy sematous changes are present bilaterally with upper lung zone predominance consistent with centrilob ular emphysema. There is no pulmonary nodule or mass lesion. Multiple small lymph nodes are present in the middle mediastinum, likely reactive, unchanged. There is no other mediastinal or hilar lymphadenopathy or mass. There is no axillary, supraclavicular, or internal mammary lymphadenopathy. The thoracic aorta is not dilated. There is calcification in the aorta consistent with atherosclero sis. The heart is mildly enlarged. There is coronary artery calcification. There is a moderate right pleural effusion. There is no left pleural effusion and there is no peric ardial effusion. Images through the upper abdomen demonstrate normal visualized portions of the liver, spleen, and ad renals. The gallbladder is surgically absent with clips noted in the gallbladder bed. The bile ducts are no rmal. The osseous structures are unremarkable with no fracture or lytic lesion. IMPRESSION: 1. Unchanged consolidation in the right upper lobe laterally consistent with pneumonia. 2. Mild atelectasis at the lung bases posteriorly with right worse than left, unchanged. 3. Centrilobular emphysema. 4. Unchanged reactive middle mediastinal lymph nodes. 5. Atherosclerosis. 6. Mild cardiomegaly. Coronary artery calcification. 7. Moderate right pleural effusion. 8. Status post cholecystectomy. RPTAT: QQ .Jimmy Carpenter MD, MD Date Time Electronically viewed and signed by .Jimmy Carpenter MD, MD on 07/16/2016 18:13 .R/
--- NOTE | 2016-07-16 19:13 | CONS ---
Date/Time of Note Date/Time of Note DATE: 07/16/16 TIME: 19:12 Assessment/Plan Assessment/Plan Chief Complaint/Hosp Course IMPRESSION: 1. The patient has pneumonia./EMPHYSEMA/legionella pneumonia 2. jovani w ckd stable 3. Underlying chronic kidney disease. 4. Diabetes mellitus. 5. Hypertension. 6. Anemia. 7. EDEMA 8. Obesity. 9. Dyslipidemia. 10 hypernatremia on diuretic BETTER 11 leg edema+ plan f/u bmp LASIX tid per id Problems: Consultation Date/Type/Reason Admit Date/Time Jul 02, 2016 at 09:58 Type of Consultation: renal Referring Provider: NARENDRA CHAWLA MD 24 HR Interval Summary Constitutional: requiring O2 Exam/Review of Systems Vital Signs Vitals Vital Signs Date Time Temp Pulse Resp B/P Pulse Ox O2 Delivery O2 Flow Rate FiO2 07/16/16 17:13 2.0 07/16/16 17:09 75 18 95 Nasal Cannula 07/16/16 15:30 98.0 140/73 07/16/16 05:37 28 Intake and Output 07/15/16 07/15/16 07/16/16 15:00 23:00 07:00 Intake Total 240 ml 926 ml 300 ml Output Total 700 ml Balance 240 ml 926 ml -400 ml Exam Neck: supple Respiratory: diminished breath sounds Cardiovascular: regular rate and rhythm Gastrointestinal: soft Extremities: edema (+) Results Result Diagram: 07/16/16 0535 07/16/16 0535 Results 24 hrs Laboratory Tests Test 07/15/16 20:43 07/16/16 03:01 07/16/16 05:35 07/16/16 07:23 Bedside Glucose 274 H 152 149 Anion Gap 11 Basophils # 0.0 Basophils % 0.0 Blood Morphology Comment Blood Urea Nitrogen 28 H Calcium Level 8.3 L Carbon Dioxide Level 34 H Chloride Level 98 Creatinine 1.69 H Eosinophils # 0.1 Eosinophils % 0.7 Ferritin 302.0 H Glucose Level 151 Hematocrit 40.3 L Hemoglobin 13.3 L Iron Level 87 Lymphocytes # 1.6 Lymphocytes % 20.6 Magnesium Level 2.1 Mean Corpuscular Hemoglobin 26.1 L Mean Corpuscular Hemoglobin Concent 33.0 Mean Corpuscular Volume 79.1 L Mean Platelet Volume 8.9 Monocytes # 0.7 Monocytes % 9.5 Neutrophils # 5.3 Neutrophils % 69.2 Nucleated Red Blood Cells # 0.0 Nucleated Red Blood Cells % 0.0 Percent Iron Saturation 42 Phosphorus Level 3.4 Platelet Count 142 Potassium Level 4.0 Red Blood Count 5.09 Red Cell Distribution Width 17.5 H Sodium Level 139 Total Iron Binding Capacity 206 L White Blood Count 7.7 # Test 07/16/16 11:54 07/16/16 17:02 Bedside Glucose 82 187 Medications Medications Current Medications Aspirin (Aspirin) 81 mg DAILY PO Last administered on 07/16/16 08:06; Admin Dose 81 MG; Start 07/03/16 at 09:00 Clopidogrel Bisulfate (plaVIX) 75 mg DAILY PO Last administered on 07/16/16 08: 06; Admin Dose 75 MG; Start 07/03/16 at 09:00 Isosorbide Dinitrate (Isordil) 20 mg TID PO Last administered on 07/16/16 12:04 ; Admin Dose 20 MG; Start 07/02/16 at 13:00 Ranolazine (Ranexa) 1,000 mg Q12 PO Last administered on 07/16/16 08:06; Admin Dose 1,000 MG; Start 07/02/16 at 21:00 Atorvastatin Calcium (Lipitor) 80 mg HS PO Last administered on 07/03/16at 21: 21; Admin Dose 80 MG; Start 07/02/16 at 21:00; Status Future Hold Ondansetron HCl (Zofran Inj) 4 mg Q6H PRN IV NAUSEA AND/OR VOMITING Last administered on 07/15/16 07:04; Admin Dose 4 MG; Start 07/02/16 at 11:30 Acetaminophen (Tylenol Tab) 650 mg Q6H PRN PO PAIN LEVEL 1-3 OR FEVER Last administered on 07/05/16at 21:52; Admin Dose 650 MG; Start 07/02/16 at 11:30 Acetaminophen (Tylenol Supp) 650 mg Q6H PRN [place] PAIN LEVEL 1-3 OR FEVER; Start 07/02/16 at 11:30 Acetaminophen/ Hydrocodone Bitart ([place] (5/325)) 1 tab Q6H PRN PO MODERATE PAIN LEVEL 4-6 Last administered on 07/07/16at 09:11; Admin Dose 1 TAB; Start 07/02/16 at 11:30 Docusate Sodium (Colace) 100 mg Q12H PRN PO CONSTIPATION; Start 07/02/16 at 11 :30 Famotidine (Pepcid) 20 mg Q12 PO Last administered on 07/16/16 08:06; Admin Dose 20 MG; Start 07/02/16 at 21:00 Heparin Sodium (Porcine) (Heparin (5000 Units/0.5 ml)) 5,000 unit Q12 SC Last administered on 07/16/16 08:07; Admin Dose 5,000 UNIT; Start 07/02/16 at 21:00 Miscellaneous Information 1 ea NOTE XX ; Start 07/02/16 at 12:00 Glucose (Glutose) 15 gm Q15M PRN PO DECREASED GLUCOSE; Start 07/02/16 at 12:00 Glucose (Glutose) 22.5 gm Q15M PRN PO DECREASED GLUCOSE; Start 07/02/16 at 12: 00 Dextrose (D50w Syringe) 25 ml Q15M PRN IV DECREASED GLUCOSE; Start 07/02/16 at 12:00 Dextrose (D50w Syringe) 50 ml Q15M PRN IV DECREASED GLUCOSE; Start 07/02/16 at 12:00 Glucagon (Glucagen) 1 mg Q15M PRN IM DECREASED GLUCOSE; Start 07/02/16 at 12: 00 Glucose (Glutose) 15 gm Q15M PRN BUCCAL DECREASED GLUCOSE; Start 07/02/16 at 12:00 Hydralazine HCl (Apresoline) 10 mg Q6H PRN IV SBP>160; Start 07/02/16 at 15:00 Lorazepam (Ativan) 1 mg Q6H PRN IV anxiety; Start 07/05/16 at 14:00 Zolpidem Tartrate (Ambien) 5 mg HS PRN PO INSOMNIA; Start 07/05/16 at 14:00 Lorazepam (Ativan) 1 mg Q6H PRN IM anxiety; Start 07/05/16 at 15:00 Alprazolam (Xanax) 1 mg TID PRN PO ANXIETY Last administered on 07/05/16at 21: 52; Admin Dose 1 MG; Start 07/05/16 at 21:00 Diagnostic Test (Pha) (Accucheck) 1 ea 02 XX Last administered on 07/16/16 02: 00; Admin Dose 1 EA; Start 07/08/16 at 02:00 Hydromorphone HCl (Dilaudid) 0.5 mg Q4H PRN IV PAIN Last administered on 16:17; Admin Dose 0.5 MG; Start 07/07/16 at 13:00 Oxycodone/ Acetaminophen (Percocet (5/ 325)) 1 tab Q4H PRN PO PAIN Last administered on 07/13/16at 00:13; Admin Dose 1 TAB; Start 07/07/16 at 13:00 Guaifenesin/ Codeine Phosphate (Robitussin Ac Liquid Cup) 5 ml Q6H PRN PO COUGH Last administered on 07/10/16at 14:35; Admin Dose 5 ML; Start 07/10/16 at 14:30 Levofloxacin (Levaquin) 500 mg DAILY@06 PO Last administered on 07/16/16 05:50 ; Admin Dose 500 MG; Start 07/13/16 at 06:00 Insulin Glargine (Lantus) 36 unit HS SC Last administered on 07/15/16 20:53; Admin Dose 36 UNIT; Start 07/15/16 at 21:00 Fish Oil (Fish Oil) 2,000 mg BID PO ; Start 07/16/16 at 21:00 Hydralazine HCl (Apresoline) 25 mg Q12 PO ; Start 07/16/16 at 21:00 Metoprolol Succinate (Toprol Xl) 50 mg BID PO ; Start 07/16/16 at 21:00 Montelukast Sodium (Singulair) 10 mg HS PO ; Start 07/16/16 at 21:00 ROBB ALBERT MD Jul 16, 2016 19:13
[2016-07-16] MEDS: METOPROLOL (XL) 50 MG TAB PO SCH (21:00)
[2016-07-16] MEDS: INSULIN GLARGINE [LANtus] 3 ML PEN SC SCH (21:07)
[2016-07-16] MEDS: MONTELUKAST 10 MG TAB PO SCH (23:06)
[2016-07-17] VITALS (10 sets, daily range): BP systolic 108–162; BP diastolic 55–83; PULSE 75–88; RESP 20
[2016-07-17] MEDS: HYDROmorphONE 1 MG/ML SYG IV PRN ×5 (01:16→21:13)
[2016-07-17] MEDS: ALBUTEROL/IPRATROPIUM (NEB) 3 ML AMP HHN SCH ×6 (01:17→20:55)
[2016-07-17] MEDS: ACCUCHECK XX SCH (02:00)
[2016-07-17] MEDS: LEVOFLOXACIN 500 MG TAB PO SCH (05:22)
[2016-07-17 06:39] LABS: BASOPHILS % 0.5 % (0.0-2.0); EOSINOPHILS # 0.1 10^3/ul (0.0-0.5); EOSINOPHILS % 0.7 % (0.0-7.0); HEMOGLOBIN 12.3 g/dl (14.0-18.0); LYMPHOCYTES # 1.3 10^3/ul (0.8-2.9); LYMPHOCYTES % 16.7 % (15.0-51.0); MEAN CORPUSCULAR HEMOGLOBIN 25.9 pg (29.0-33.0); MEAN CORPUSCULAR HGB CONC 32.4 g/dl (32.0-37.0); MEAN CORPUSCULAR VOLUME 79.8 fl (82.0-101.0); MEAN PLATELET VOLUME 9.5 fl (7.4-10.4); MONOCYTE # 0.7 10^3/ul (0.3-0.9); MONOCYTES % 8.4 % (0.0-11.0); NEUTROPHIL # 5.7 10^3/ul (1.6-7.5); NEUTROPHILS % 73.7 % (39.0-77.0); PLATELET COUNT 131 10^3/UL (140-440); RED BLOOD COUNT 4.77 10^6/ul (4.70-6.10); RED CELL DISTRIBUTION WIDTH 17.6 % (11.5-14.5); UNCORRECTED WBC 7.8 10^3/ul (4.8-10.8); WHITE BLOOD COUNT 7.8 10^3/ul (4.8-10.8)
[2016-07-17 06:51] LABS: ALBUMIN 2.7 g/dl (3.3-4.9)
[2016-07-17 06:52] LABS: POTASSIUM 4.2 mmol/L (3.5-5.1)
[2016-07-17 06:54] LABS: BILIRUBIN,INDIRECT 0.2 mg/dl (0-1.1); BILIRUBIN,TOTAL 0.2 mg/dl (0.2-1.3); CONDITION 1; CREATININE 1.48 mg/dl (0.61-1.24); LH ANALYZER COMMENTS 1
[2016-07-17 06:55] LABS: ALBUMIN/GLOBULIN RATIO 0.96; TOTAL PROTEIN 5.5 g/dl (6.1-8.1)
[2016-07-17] MEDS: INSULIN ASPART [NOVOLOG] 3 ML PEN SC SCH ×6 (07:44→21:00)
[2016-07-17] MEDS: ISOSORBIDE DINITRATE 20 MG TAB PO SCH ×3 (08:54→21:15)
[2016-07-17] MEDS: CLOPIDOGREL 75 MG TAB PO SCH (08:54)
[2016-07-17] MEDS: METOPROLOL (XL) 50 MG TAB PO SCH ×2 (08:55→21:15)
[2016-07-17] MEDS: ASPIRIN 81 MG TAB PO SCH (08:55)
[2016-07-17] MEDS: RANOLAZINE (SR) 500 MG TAB PO SCH ×2 (08:55→21:20)
[2016-07-17] MEDS: HEPARIN 5,000 UNIT/0.5 ML SYG SC SCH ×2 (08:57→21:17)
[2016-07-17] MEDS: FAMOTIDINE 20 MG TAB PO SCH ×2 (08:58→21:15)
[2016-07-17] MEDS: FISH OIL 1,000 MG CAP PO SCH ×2 (08:58→21:14)
--- NOTE | 2016-07-17 12:51 | PN ---
DATE: 07/17/2016 INFECTIOUS DISEASE PROGRESS NOTE SUBJECTIVE: No acute changes overnight. The patient is alert, feels better. He was able to ambula te this morning without oxygen; however, his oxygen dropped to 88%. He is in no distress. LABORATORY DATA: WBC 7.8, no shift, no bands. BUN is 31, creatinine 1.4. DIAGNOSTICS: CT of the chest on July 15 revealed unchanged consolidation in the right upper lob e laterally consistent with pneumonia. PHYSICAL EXAMINATION: GENERAL: A well-developed, well-nourished Yemeni-speaking man who is alert, in no distress. HEENT: Head atraumatic, normocephalic. Sclerae anicteric. Buccal mucosa pink. NECK: Supple, trachea midline. CHEST: Rise symmetrical. Breath sounds clear, diminished to bases. HEART: S1, S2. ABDOMEN: Soft, bowel sounds present. EXTREMITIES: No cyanosis. ASSESSMENT: 1. Right upper lobe pneumonia. 2. Acute on chronic respiratory failure. 3. Acute renal failure. 4. Emphysema. 5. History of Legionella pneumonia. PLAN: The patient remains stable, overall doing better. We are going to restart cefepime as per di tedussion with Dr. Wynn and await for his recommendation for further management. The patient may require a CT-guided biopsy of the upper lobe consolidation. Dictated By: BONNIE MONTILLA BRICK POINTER for DENNIS CHRISTIAN/GABY Conf#: [id number] DID#: [id number]
[2016-07-17] MEDS: CEFEPIME 1GM/50 ML (PMX) 50 ML IVPB SCH ×2 (13:57→21:13)
--- NOTE | 2016-07-17 14:40 | PN ---
Date/Time of Note Date/Time of Note DATE: 07/17/16 TIME: 14:38 Assessment/Plan VTE Prophylaxis VTE Prophylaxis Intervention: heparin, SCD's Lines/Catheters IV C[facility]ter Type (from [facility]): [facility] Urinary Cath still in place: No Assessment/Plan Chief Complaint/Hosp Course Chief Complaint/Hosp Course 1. Right upper lobe Pneumonia. Legionella pneumonia. Chest x-ray showing persistent right upper lobe infiltrate. Sputum CS with staph aureus. ->Continue Rocephin/Zithromax/Vancomycin. Infectious diseases and fish packer following. 2. COPD exacerbation with bronchospasm. Improved. ->.Pulmonary on board.Continue bronchodilators. S/P steroids. 3. Sepsis secondary to pneumonia: Resolving. Will monitor. 4. Acute kidney injury on chronic kidney disease. SHERYL likely secondary to sepsis vs diuretic induced. Continue to monitor creatinine -> Nephrology on board. Monitor renal function closely and avoid nephrotoxins as much as possible. 5. Essential hypertension: Stable. On Isordil / hydralazine / Coreg. 6. Ischemic cardiomyopathy. Continue BBs. Unable to use ACEIs because of worsening renal function. 7. Coronary artery disease, status post multiple percutaneous coronary interventions: On ASA/ Plavix/ Statin / BB / hydralazine/nitrates. 8. Congestive heart failure exacerbation. Acute on chronic. Systolic dysfunction. . Continue medical management with Coreg, Imdur, and aspirin. Diuretics as per nephrology. 9. Hyperglycemia with Type 2 diabetes. A1C 9.8: non compliance Continue accu checks, ISS, pre-meals and Lantus to 33 units. 10. Dyslipidemia. Hold Lipitor due to liver fxn. Continue Fish oil. May need to change to low dose Zocor up on DC with LFT monitoring. 11. Hepatomegaly with Transaminase elevation-likely concurrent illness. Monitor closely. Avoid hepatotoxins as much as possible. 12. Hx of Nicotine abuse. Cessation advised DVT prophylaxis: Heparin PUD prophylaxis: Pepcid PLAN: Continue antibiotics as per infectious diseases. Latest chest x-ray showing improvement. Case was discussed with pulmonary. Pulmonary recommended continuing the patient on current antibiotics. Will adjust insulin dosing to obtain optimal blood sugar control. Problems: Subjective 24 Hr Interval Summary Free Text/Dictation Patient continues to complain of having shortness of breath and cough and congestion Tolerating oral intake Difficulty with ambulation secondary to shortness of breath Exam/Review of Systems Vital Signs Vitals Vital Signs Date Time Temp Pulse Resp B/P Pulse Ox O2 Delivery O2 Flow Rate FiO2 07/17/16 12:26 76 18 94 Nasal Cannula 2.0 07/17/16 11:34 98.2 125/69 07/16/16 05:37 28 Intake and Output 07/16/16 07/16/16 07/17/16 15:00 23:00 07:00 Intake Total 980 ml 500 ml Balance 980 ml 500 ml Exam General: The patient is well-developed, Not in acute distress. HEENT: Atraumatic, normocephalic. The pupils are equal and round . Neck: Supple with full range of motion. Chest: Normal expansion of the thorax during inspiration Lungs: Decreased breath sounds bilateral lower lung field with rhonchi Heart: Normal S1-S2, Regular rhythm and rate. Abdomen: Soft , nontender, nondistended , bowel sounds are present. Extremities: Normal to inspection, no edema no cyanosis Neurologic: Normal mental status,The patient is awake, alert and oriented . Results Result Diagram: 07/17/16 0545 07/17/16 0545 Results 24 hrs Laboratory Tests Test 07/16/16 17:02 07/16/16 20:49 07/17/16 05:45 07/17/16 07:27 Bedside Glucose 187 90 309 H Alanine Aminotransferase (ALT/SGPT) 78 H Albumin 2.7 L Albumin/Globulin Ratio 0.96 Alkaline Phosphatase 130 H Anion Gap 12 Aspartate Amino Transf (AST/SGOT) 54 H Basophils # 0.0 Basophils % 0.5 Blood Morphology Comment Blood Urea Nitrogen 31 H Calcium Level 8.0 L Carbon Dioxide Level 34 H Chloride Level 95 L Creatinine 1.48 H Direct Bilirubin 0.00 Eosinophils # 0.1 Eosinophils % 0.7 Globulin 2.80 Glucose Level 284 #H Hematocrit 38.0 L Hemoglobin 12.3 L Indirect Bilirubin 0.2 Lymphocytes # 1.3 Lymphocytes % 16.7 Mean Corpuscular Hemoglobin 25.9 L Mean Corpuscular Hemoglobin Concent 32.4 Mean Corpuscular Volume 79.8 L Mean Platelet Volume 9.5 Monocytes # 0.7 Monocytes % 8.4 Neutrophils # 5.7 Neutrophils % 73.7 Nucleated Red Blood Cells # 0.0 Nucleated Red Blood Cells % 0.0 Platelet Count 131 L Potassium Level 4.2 Red Blood Count 4.77 Red Cell Distribution Width 17.6 H Sodium Level 137 Total Bilirubin 0.2 Total Protein 5.5 L White Blood Count 7.8 Test 07/17/16 11:30 Bedside Glucose 380 H Medications Medications Current Medications Aspirin (Aspirin) 81 mg DAILY PO Last administered on 07/17/16 08:55; Admin Dose 81 MG; Start 07/03/16 at 09:00 Clopidogrel Bisulfate (plaVIX) 75 mg DAILY PO Last administered on 07/17/16 08: 54; Admin Dose 75 MG; Start 07/03/16 at 09:00 Isosorbide Dinitrate (Isordil) 20 mg TID PO Last administered on 07/17/16 12:10 ; Admin Dose 20 MG; Start 07/02/16 at 13:00 Ranolazine (Ranexa) 1,000 mg Q12 PO Last administered on 07/17/16 08:55; Admin Dose 1,000 MG; Start 07/02/16 at 21:00 Atorvastatin Calcium (Lipitor) 80 mg HS PO Last administered on 07/03/16at 21: 21; Admin Dose 80 MG; Start 07/02/16 at 21:00; Status Future Hold Ondansetron HCl (Zofran Inj) 4 mg Q6H PRN IV NAUSEA AND/OR VOMITING Last administered on 07/15/16 07:04; Admin Dose 4 MG; Start 07/02/16 at 11:30 Acetaminophen (Tylenol Tab) 650 mg Q6H PRN PO PAIN LEVEL 1-3 OR FEVER Last administered on 07/05/16at 21:52; Admin Dose 650 MG; Start 07/02/16 at 11:30 Acetaminophen (Tylenol Supp) 650 mg Q6H PRN [place] PAIN LEVEL 1-3 OR FEVER; Start 07/02/16 at 11:30 Acetaminophen/ Hydrocodone Bitart ([place] (5/325)) 1 tab Q6H PRN PO MODERATE PAIN LEVEL 4-6 Last administered on 07/07/16at 09:11; Admin Dose 1 TAB; Start 07/02/16 at 11:30 Docusate Sodium (Colace) 100 mg Q12H PRN PO CONSTIPATION; Start 07/02/16 at 11 :30 Famotidine (Pepcid) 20 mg Q12 PO Last administered on 07/17/16 08:58; Admin Dose 20 MG; Start 07/02/16 at 21:00 Heparin Sodium (Porcine) (Heparin (5000 Units/0.5 ml)) 5,000 unit Q12 SC Last administered on 07/17/16 08:57; Admin Dose 5,000 UNIT; Start 07/02/16 at 21:00 Miscellaneous Information 1 ea NOTE XX ; Start 07/02/16 at 12:00 Glucose (Glutose) 15 gm Q15M PRN PO DECREASED GLUCOSE; Start 07/02/16 at 12:00 Glucose (Glutose) 22.5 gm Q15M PRN PO DECREASED GLUCOSE; Start 07/02/16 at 12: 00 Dextrose (D50w Syringe) 25 ml Q15M PRN IV DECREASED GLUCOSE; Start 07/02/16 at 12:00 Dextrose (D50w Syringe) 50 ml Q15M PRN IV DECREASED GLUCOSE; Start 07/02/16 at 12:00 Glucagon (Glucagen) 1 mg Q15M PRN IM DECREASED GLUCOSE; Start 07/02/16 at 12: 00 Glucose (Glutose) 15 gm Q15M PRN BUCCAL DECREASED GLUCOSE; Start 07/02/16 at 12:00 Hydralazine HCl (Apresoline) 10 mg Q6H PRN IV SBP>160; Start 07/02/16 at 15:00 Lorazepam (Ativan) 1 mg Q6H PRN IV anxiety; Start 07/05/16 at 14:00 Zolpidem Tartrate (Ambien) 5 mg HS PRN PO INSOMNIA; Start 07/05/16 at 14:00 Lorazepam (Ativan) 1 mg Q6H PRN IM anxiety; Start 07/05/16 at 15:00 Alprazolam (Xanax) 1 mg TID PRN PO ANXIETY Last administered on 07/05/16at 21: 52; Admin Dose 1 MG; Start 07/05/16 at 21:00 Diagnostic Test (Pha) (Accucheck) 1 ea 02 XX Last administered on 07/16/16 02: 00; Admin Dose 1 EA; Start 07/08/16 at 02:00 Hydromorphone HCl (Dilaudid) 0.5 mg Q4H PRN IV PAIN Last administered on 11:25; Admin Dose 0.5 MG; Start 07/07/16 at 13:00 Oxycodone/ Acetaminophen (Percocet (5/ 325)) 1 tab Q4H PRN PO PAIN Last administered on 07/13/16at 00:13; Admin Dose 1 TAB; Start 07/07/16 at 13:00 Guaifenesin/ Codeine Phosphate (Robitussin Ac Liquid Cup) 5 ml Q6H PRN PO COUGH Last administered on 07/10/16at 14:35; Admin Dose 5 ML; Start 07/10/16 at 14:30 Levofloxacin (Levaquin) 500 mg DAILY@06 PO Last administered on 07/17/16 05:22 ; Admin Dose 500 MG; Start 07/13/16 at 06:00 Fish Oil (Fish Oil) 2,000 mg BID PO Last administered on 07/17/16 08:58; Admin Dose 2,000 MG; Start 07/16/16 at 21:00 Hydralazine HCl (Apresoline) 25 mg Q12 PO Last administered on 07/17/16 08:55; Admin Dose 25 MG; Start 07/16/16 at 21:00 Metoprolol Succinate (Toprol Xl) 50 mg BID PO Last administered on 07/17/16 08: 55; Admin Dose 50 MG; Start 07/16/16 at 21:00 Montelukast Sodium 10 mg 10 mg HS PO Last administered on 07/16/16 23:06; Admin Dose 10 MG; Start 07/16/16 at 21:00 Cefepime HCl (Maxipime 1gm/50 ml (Pmx)) 50 ml @ 100 mls/hr Q12 IVPB Last administered on 07/17/16 13:57; Admin Dose 100 MLS/HR; Start 07/17/16 at 13:30 Insulin Glargine (Lantus) 40 unit HS SC ; Start 07/17/16 at 21:00; Status NARENDRA BANGURA MD Jul 17, 2016 14:40
--- NOTE | 2016-07-17 16:43 | CONS ---
Date/Time of Note Date/Time of Note DATE: 07/17/16 TIME: 16:42 Assessment/Plan Assessment/Plan Chief Complaint/Hosp Course IMPRESSION: 1. The patient has pneumonia./EMPHYSEMA/legionella pneumonia 2. jovani w ckd stable 3. Underlying chronic kidney disease. 4. Diabetes mellitus. 5. Hypertension. 6. Anemia. 7. EDEMA 8. Obesity. 9. Dyslipidemia. 10 hypernatremia on diuretic BETTER 11 leg edema+ plan f/u bmp LASIX per id per pulmonary Problems: Consultation Date/Type/Reason Admit Date/Time Jul 02, 2016 at 09:58 Type of Consultation: renal Referring Provider: NARENDRA CHAWLA MD 24 HR Interval Summary Subjective hx not possible: other (sob+ better) Exam/Review of Systems Vital Signs Vitals Vital Signs Date Time Temp Pulse Resp B/P Pulse Ox O2 Delivery O2 Flow Rate FiO2 07/17/16 16:03 83 07/17/16 15:37 98.0 20 108/55 96 07/17/16 12:26 Nasal Cannula 2.0 07/16/16 05:37 28 Intake and Output 07/16/16 07/16/16 07/17/16 15:00 23:00 07:00 Intake Total 980 ml 500 ml Balance 980 ml 500 ml Exam Respiratory: diminished breath sounds Cardiovascular: regular rate and rhythm Gastrointestinal: soft Musculoskeletal: nl extremities to inspection Extremities: normal pulses Results Result Diagram: 07/17/16 0545 07/17/16 0545 Results 24 hrs Laboratory Tests Test 07/16/16 17:02 07/16/16 20:49 07/17/16 05:45 07/17/16 07:27 Bedside Glucose 187 90 309 H Alanine Aminotransferase (ALT/SGPT) 78 H Albumin 2.7 L Albumin/Globulin Ratio 0.96 Alkaline Phosphatase 130 H Anion Gap 12 Aspartate Amino Transf (AST/SGOT) 54 H Basophils # 0.0 Basophils % 0.5 Blood Morphology Comment Blood Urea Nitrogen 31 H Calcium Level 8.0 L Carbon Dioxide Level 34 H Chloride Level 95 L Creatinine 1.48 H Direct Bilirubin 0.00 Eosinophils # 0.1 Eosinophils % 0.7 Globulin 2.80 Glucose Level 284 #H Hematocrit 38.0 L Hemoglobin 12.3 L Indirect Bilirubin 0.2 Lymphocytes # 1.3 Lymphocytes % 16.7 Mean Corpuscular Hemoglobin 25.9 L Mean Corpuscular Hemoglobin Concent 32.4 Mean Corpuscular Volume 79.8 L Mean Platelet Volume 9.5 Monocytes # 0.7 Monocytes % 8.4 Neutrophils # 5.7 Neutrophils % 73.7 Nucleated Red Blood Cells # 0.0 Nucleated Red Blood Cells % 0.0 Platelet Count 131 L Potassium Level 4.2 Red Blood Count 4.77 Red Cell Distribution Width 17.6 H Sodium Level 137 Total Bilirubin 0.2 Total Protein 5.5 L White Blood Count 7.8 Test 07/17/16 11:30 Bedside Glucose 380 H Medications Medications Current Medications Aspirin (Aspirin) 81 mg DAILY PO Last administered on 07/17/16 08:55; Admin Dose 81 MG; Start 07/03/16 at 09:00 Clopidogrel Bisulfate (plaVIX) 75 mg DAILY PO Last administered on 07/17/16 08: 54; Admin Dose 75 MG; Start 07/03/16 at 09:00 Isosorbide Dinitrate (Isordil) 20 mg TID PO Last administered on 07/17/16 12:10 ; Admin Dose 20 MG; Start 07/02/16 at 13:00 Ranolazine (Ranexa) 1,000 mg Q12 PO Last administered on 07/17/16 08:55; Admin Dose 1,000 MG; Start 07/02/16 at 21:00 Atorvastatin Calcium (Lipitor) 80 mg HS PO Last administered on 07/03/16at 21: 21; Admin Dose 80 MG; Start 07/02/16 at 21:00; Status Future Hold Ondansetron HCl (Zofran Inj) 4 mg Q6H PRN IV NAUSEA AND/OR VOMITING Last administered on 07/15/16 07:04; Admin Dose 4 MG; Start 07/02/16 at 11:30 Acetaminophen (Tylenol Tab) 650 mg Q6H PRN PO PAIN LEVEL 1-3 OR FEVER Last administered on 07/05/16at 21:52; Admin Dose 650 MG; Start 07/02/16 at 11:30 Acetaminophen (Tylenol Supp) 650 mg Q6H PRN [place] PAIN LEVEL 1-3 OR FEVER; Start 07/02/16 at 11:30 Acetaminophen/ Hydrocodone Bitart ([place] (5/325)) 1 tab Q6H PRN PO MODERATE PAIN LEVEL 4-6 Last administered on 07/07/16at 09:11; Admin Dose 1 TAB; Start 07/02/16 at 11:30 Docusate Sodium (Colace) 100 mg Q12H PRN PO CONSTIPATION; Start 07/02/16 at 11 :30 Famotidine (Pepcid) 20 mg Q12 PO Last administered on 07/17/16 08:58; Admin Dose 20 MG; Start 07/02/16 at 21:00 Heparin Sodium (Porcine) (Heparin (5000 Units/0.5 ml)) 5,000 unit Q12 SC Last administered on 07/17/16 08:57; Admin Dose 5,000 UNIT; Start 07/02/16 at 21:00 Miscellaneous Information 1 ea NOTE XX ; Start 07/02/16 at 12:00 Glucose (Glutose) 15 gm Q15M PRN PO DECREASED GLUCOSE; Start 07/02/16 at 12:00 Glucose (Glutose) 22.5 gm Q15M PRN PO DECREASED GLUCOSE; Start 07/02/16 at 12: 00 Dextrose (D50w Syringe) 25 ml Q15M PRN IV DECREASED GLUCOSE; Start 07/02/16 at 12:00 Dextrose (D50w Syringe) 50 ml Q15M PRN IV DECREASED GLUCOSE; Start 07/02/16 at 12:00 Glucagon (Glucagen) 1 mg Q15M PRN IM DECREASED GLUCOSE; Start 07/02/16 at 12: 00 Glucose (Glutose) 15 gm Q15M PRN BUCCAL DECREASED GLUCOSE; Start 07/02/16 at 12:00 Hydralazine HCl (Apresoline) 10 mg Q6H PRN IV SBP>160; Start 07/02/16 at 15:00 Lorazepam (Ativan) 1 mg Q6H PRN IV anxiety; Start 07/05/16 at 14:00 Zolpidem Tartrate (Ambien) 5 mg HS PRN PO INSOMNIA; Start 07/05/16 at 14:00 Lorazepam (Ativan) 1 mg Q6H PRN IM anxiety; Start 07/05/16 at 15:00 Alprazolam (Xanax) 1 mg TID PRN PO ANXIETY Last administered on 07/05/16at 21: 52; Admin Dose 1 MG; Start 07/05/16 at 21:00 Hydromorphone HCl (Dilaudid) 0.5 mg Q4H PRN IV PAIN Last administered on 11:25; Admin Dose 0.5 MG; Start 07/07/16 at 13:00 Oxycodone/ Acetaminophen (Percocet (5/ 325)) 1 tab Q4H PRN PO PAIN Last administered on 07/13/16at 00:13; Admin Dose 1 TAB; Start 07/07/16 at 13:00 Guaifenesin/ Codeine Phosphate (Robitussin Ac Liquid Cup) 5 ml Q6H PRN PO COUGH Last administered on 07/10/16at 14:35; Admin Dose 5 ML; Start 07/10/16 at 14:30 Levofloxacin (Levaquin) 500 mg DAILY@06 PO Last administered on 07/17/16 05:22 ; Admin Dose 500 MG; Start 07/13/16 at 06:00 Fish Oil (Fish Oil) 2,000 mg BID PO Last administered on 07/17/16 08:58; Admin Dose 2,000 MG; Start 07/16/16 at 21:00 Hydralazine HCl (Apresoline) 25 mg Q12 PO Last administered on 07/17/16 08:55; Admin Dose 25 MG; Start 07/16/16 at 21:00 Metoprolol Succinate (Toprol Xl) 50 mg BID PO Last administered on 07/17/16 08: 55; Admin Dose 50 MG; Start 07/16/16 at 21:00 Montelukast Sodium 10 mg 10 mg HS PO Last administered on 07/16/16 23:06; Admin Dose 10 MG; Start 07/16/16 at 21:00 Cefepime HCl (Maxipime 1gm/50 ml (Pmx)) 50 ml @ 100 mls/hr Q12 IVPB Last administered on 07/17/16 13:57; Admin Dose 100 MLS/HR; Start 07/17/16 at 13:30 Insulin Glargine (Lantus) 40 unit HS SC ; Start 07/17/16 at 21:00 Diagnostic Test (Pha) (Accucheck) 1 ea 02 XX ; Start 07/18/16 at 02:00 ROBB ALBERT MD Jul 17, 2016 16:43
--- NOTE | 2016-07-17 17:12 | CONS ---
Date/Time of Note Date/Time of Note DATE: 07/17/16 TIME: 17:07 Consult Date/Type/Reason Admit Date/Time Jul 02, 2016 at 09:58 Type of Consultation: pulm Ordering Provider: NARENDRA CHAWLA MD Subjective No new changes mild shortness of breath on exertion Objective Vital Signs Date Time Temp Pulse Resp B/P Pulse Ox O2 Delivery O2 Flow Rate FiO2 07/17/16 16:03 83 07/17/16 15:37 98.0 20 108/55 96 07/17/16 12:26 Nasal Cannula 2.0 07/16/16 05:37 28 Intake and Output 07/16/16 07/16/16 07/17/16 15:00 23:00 07:00 Intake Total 980 ml 500 ml Balance 980 ml 500 ml PHYSICAL EXAMINATION: VITAL SIGNS: as above NECK: Supple. No JVD or lymphadenopathy. CARDIAC: S1, S2, no added sounds or murmurs. CHEST: Diminished air entry bilaterally. ABDOMEN: Soft, nontender. No guarding or rebound. EXTREMITIES: No cyanosis, clubbing, edema. NEUROLOGIC: Grossly intact. No focal deficits. Baby Results/Medications Result Diagram: 07/17/16 0545 07/17/16 0545 Results 24 hrs Laboratory Tests Test 07/16/16 20:49 07/17/16 05:45 07/17/16 07:27 07/17/16 11:30 Bedside Glucose 90 309 H 380 H Alanine Aminotransferase (ALT/SGPT) 78 H Albumin 2.7 L Albumin/Globulin Ratio 0.96 Alkaline Phosphatase 130 H Anion Gap 12 Aspartate Amino Transf (AST/SGOT) 54 H Basophils # 0.0 Basophils % 0.5 Blood Morphology Comment Blood Urea Nitrogen 31 H Calcium Level 8.0 L Carbon Dioxide Level 34 H Chloride Level 95 L Creatinine 1.48 H Direct Bilirubin 0.00 Eosinophils # 0.1 Eosinophils % 0.7 Globulin 2.80 Glucose Level 284 #H Hematocrit 38.0 L Hemoglobin 12.3 L Indirect Bilirubin 0.2 Lymphocytes # 1.3 Lymphocytes % 16.7 Mean Corpuscular Hemoglobin 25.9 L Mean Corpuscular Hemoglobin Concent 32.4 Mean Corpuscular Volume 79.8 L Mean Platelet Volume 9.5 Monocytes # 0.7 Monocytes % 8.4 Neutrophils # 5.7 Neutrophils % 73.7 Nucleated Red Blood Cells # 0.0 Nucleated Red Blood Cells % 0.0 Platelet Count 131 L Potassium Level 4.2 Red Blood Count 4.77 Red Cell Distribution Width 17.6 H Sodium Level 137 Total Bilirubin 0.2 Total Protein 5.5 L White Blood Count 7.8 Test 07/17/16 16:59 Bedside Glucose 121 Medications Current Medications Aspirin (Aspirin) 81 mg DAILY PO Last administered on 07/17/16 08:55; Admin Dose 81 MG; Start 07/03/16 at 09:00 Clopidogrel Bisulfate (plaVIX) 75 mg DAILY PO Last administered on 07/17/16 08: 54; Admin Dose 75 MG; Start 07/03/16 at 09:00 Isosorbide Dinitrate (Isordil) 20 mg TID PO Last administered on 07/17/16 12:10 ; Admin Dose 20 MG; Start 07/02/16 at 13:00 Ranolazine (Ranexa) 1,000 mg Q12 PO Last administered on 07/17/16 08:55; Admin Dose 1,000 MG; Start 07/02/16 at 21:00 Atorvastatin Calcium (Lipitor) 80 mg HS PO Last administered on 07/03/16at 21: 21; Admin Dose 80 MG; Start 07/02/16 at 21:00; Status Future Hold Ondansetron HCl (Zofran Inj) 4 mg Q6H PRN IV NAUSEA AND/OR VOMITING Last administered on 07/15/16 07:04; Admin Dose 4 MG; Start 07/02/16 at 11:30 Acetaminophen (Tylenol Tab) 650 mg Q6H PRN PO PAIN LEVEL 1-3 OR FEVER Last administered on 07/05/16at 21:52; Admin Dose 650 MG; Start 07/02/16 at 11:30 Acetaminophen (Tylenol Supp) 650 mg Q6H PRN [place] PAIN LEVEL 1-3 OR FEVER; Start 07/02/16 at 11:30 Acetaminophen/ Hydrocodone Bitart ([place] (5/325)) 1 tab Q6H PRN PO MODERATE PAIN LEVEL 4-6 Last administered on 07/07/16at 09:11; Admin Dose 1 TAB; Start 07/02/16 at 11:30 Docusate Sodium (Colace) 100 mg Q12H PRN PO CONSTIPATION; Start 07/02/16 at 11 :30 Famotidine (Pepcid) 20 mg Q12 PO Last administered on 07/17/16 08:58; Admin Dose 20 MG; Start 07/02/16 at 21:00 Heparin Sodium (Porcine) (Heparin (5000 Units/0.5 ml)) 5,000 unit Q12 SC Last administered on 07/17/16 08:57; Admin Dose 5,000 UNIT; Start 07/02/16 at 21:00 Miscellaneous Information 1 ea NOTE XX ; Start 07/02/16 at 12:00 Glucose (Glutose) 15 gm Q15M PRN PO DECREASED GLUCOSE; Start 07/02/16 at 12:00 Glucose (Glutose) 22.5 gm Q15M PRN PO DECREASED GLUCOSE; Start 07/02/16 at 12: 00 Dextrose (D50w Syringe) 25 ml Q15M PRN IV DECREASED GLUCOSE; Start 07/02/16 at 12:00 Dextrose (D50w Syringe) 50 ml Q15M PRN IV DECREASED GLUCOSE; Start 07/02/16 at 12:00 Glucagon (Glucagen) 1 mg Q15M PRN IM DECREASED GLUCOSE; Start 07/02/16 at 12: 00 Glucose (Glutose) 15 gm Q15M PRN BUCCAL DECREASED GLUCOSE; Start 07/02/16 at 12:00 Hydralazine HCl (Apresoline) 10 mg Q6H PRN IV SBP>160; Start 07/02/16 at 15:00 Lorazepam (Ativan) 1 mg Q6H PRN IV anxiety; Start 07/05/16 at 14:00 Zolpidem Tartrate (Ambien) 5 mg HS PRN PO INSOMNIA; Start 07/05/16 at 14:00 Lorazepam (Ativan) 1 mg Q6H PRN IM anxiety; Start 07/05/16 at 15:00 Alprazolam (Xanax) 1 mg TID PRN PO ANXIETY Last administered on 07/05/16at 21: 52; Admin Dose 1 MG; Start 07/05/16 at 21:00 Hydromorphone HCl (Dilaudid) 0.5 mg Q4H PRN IV PAIN Last administered on 11:25; Admin Dose 0.5 MG; Start 07/07/16 at 13:00 Oxycodone/ Acetaminophen (Percocet (5/ 325)) 1 tab Q4H PRN PO PAIN Last administered on 07/13/16at 00:13; Admin Dose 1 TAB; Start 07/07/16 at 13:00 Guaifenesin/ Codeine Phosphate (Robitussin Ac Liquid Cup) 5 ml Q6H PRN PO COUGH Last administered on 07/10/16at 14:35; Admin Dose 5 ML; Start 07/10/16 at 14:30 Levofloxacin (Levaquin) 500 mg DAILY@06 PO Last administered on 07/17/16 05:22 ; Admin Dose 500 MG; Start 07/13/16 at 06:00 Fish Oil (Fish Oil) 2,000 mg BID PO Last administered on 07/17/16 08:58; Admin Dose 2,000 MG; Start 07/16/16 at 21:00 Hydralazine HCl (Apresoline) 25 mg Q12 PO Last administered on 07/17/16 08:55; Admin Dose 25 MG; Start 07/16/16 at 21:00 Metoprolol Succinate (Toprol Xl) 50 mg BID PO Last administered on 07/17/16 08: 55; Admin Dose 50 MG; Start 07/16/16 at 21:00 Montelukast Sodium 10 mg 10 mg HS PO Last administered on 07/16/16 23:06; Admin Dose 10 MG; Start 07/16/16 at 21:00 Cefepime HCl (Maxipime 1gm/50 ml (Pmx)) 50 ml @ 100 mls/hr Q12 IVPB Last administered on 07/17/16 13:57; Admin Dose 100 MLS/HR; Start 07/17/16 at 13:30 Insulin Glargine (Lantus) 40 unit HS SC ; Start 07/17/16 at 21:00 Diagnostic Test (Pha) (Accucheck) 1 ea 02 XX ; Start 07/18/16 at 02:00 Assessment/Plan Chief Complaint/Hosp Course IMPRESSION AND PLAN: 1. Right upper lobe pneumonia. Persistent infiltrates despite antibiotics. Will need biopsy to exclude malignancy. Stat coags. 2. Renal insufficiency, DC Lasix 3. History of diabetes. 4. History of tobacco use. Problems: MAXX APPLE MD, FCCP Jul 17, 2016 17:12
[2016-07-17] MEDS ORDERED: INSULIN ASPART [NOVOLOG] 3 ML PEN SC SCH (17:35)
[2016-07-17 17:57] LABS: INR 0.91; PROTIME 12.2 Sec (12.2-14.2)
[2016-07-17 17:58] LABS: PARTIAL THROMBOPLASTIN TIME 29.5 Sec (25.0-35.0)
[2016-07-17] MEDS ORDERED: INSULIN GLARGINE [LANtus] 3 ML PEN SC SCH (21:00)
[2016-07-17] MEDS: MONTELUKAST 10 MG TAB PO SCH (21:15)
[2016-07-18] VITALS (12 sets, daily range): BP systolic 125–173; BP diastolic 60–91; PULSE 75–83; RESP 16–21
[2016-07-18] MEDS: ALBUTEROL/IPRATROPIUM (NEB) 3 ML AMP HHN SCH ×6 (00:47→21:35)
[2016-07-18] MEDS: HYDROmorphONE 1 MG/ML SYG IV PRN ×5 (01:22→20:53)
[2016-07-18] MEDS: ACCUCHECK XX SCH (02:00)
[2016-07-18] MEDS: LEVOFLOXACIN 500 MG TAB PO SCH (05:22)
[2016-07-18] MEDS: INSULIN ASPART [NOVOLOG] 3 ML PEN SC SCH ×7 (07:30→20:53)
[2016-07-18] MEDS ORDERED: INSULIN ASPART [NOVOLOG] 3 ML PEN SC ONE (08:30)
[2016-07-18] MEDS: CEFEPIME 1GM/50 ML (PMX) 50 ML IVPB SCH ×2 (08:43→20:48)
[2016-07-18] MEDS: HEPARIN 5,000 UNIT/0.5 ML SYG SC SCH ×3 (09:00→21:00)
[2016-07-18] MEDS: METOPROLOL (XL) 50 MG TAB PO SCH ×2 (09:00→20:52)
[2016-07-18] MEDS: FISH OIL 1,000 MG CAP PO SCH ×2 (09:00→20:52)
[2016-07-18] MEDS: RANOLAZINE (SR) 500 MG TAB PO SCH ×2 (09:00→20:52)
[2016-07-18] MEDS: ASPIRIN 81 MG TAB PO SCH (09:00)
[2016-07-18] MEDS: ISOSORBIDE DINITRATE 20 MG TAB PO SCH ×3 (09:00→20:52)
[2016-07-18] MEDS: FAMOTIDINE 20 MG TAB PO SCH ×2 (09:00→20:52)
[2016-07-18] MEDS: CLOPIDOGREL 75 MG TAB PO SCH (09:00)
--- NOTE | 2016-07-18 12:27 | CONS ---
Date/Time of Note Date/Time of Note DATE: 07/18/16 TIME: 12:26 Consult Date/Type/Reason Admit Date/Time Jul 02, 2016 at 09:58 Type of Consultation: id Ordering Provider: NARENDRA CHAWLA MD Subjective alert, no fevers, nad Objective Vital Signs Date Time Temp Pulse Resp B/P Pulse Ox O2 Delivery O2 Flow Rate FiO2 07/18/16 12:02 75 07/18/16 11:16 98.1 16 151/76 97 07/18/16 09:25 Nasal Cannula 2.0 28 Intake and Output 07/17/16 07/17/16 07/18/16 15:00 23:00 07:00 Intake Total 770 ml 500 ml Balance 770 ml 500 ml Results/Medications Result Diagram: 07/17/16 0545 07/17/16 0545 Results 24 hrs Laboratory Tests Test 07/17/16 16:59 07/17/16 17:35 07/17/16 20:27 07/18/16 08:16 Bedside Glucose 121 124 264 H Activated Partial Thromboplast Time 29.5 INR International Normalized Ratio 0.91 Prothrombin Time 12.2 Prothrombin Time Ratio 1.0 Test 07/18/16 12:06 Bedside Glucose 227 H Medications Current Medications Aspirin (Aspirin) 81 mg DAILY PO Last administered on 07/17/16 08:55; Admin Dose 81 MG; Start 07/03/16 at 09:00 Clopidogrel Bisulfate (plaVIX) 75 mg DAILY PO Last administered on 07/17/16 08: 54; Admin Dose 75 MG; Start 07/03/16 at 09:00 Isosorbide Dinitrate (Isordil) 20 mg TID PO Last administered on 07/17/16 21:15 ; Admin Dose 20 MG; Start 07/02/16 at 13:00 Ranolazine (Ranexa) 1,000 mg Q12 PO Last administered on 07/17/16 21:20; Admin Dose 1,000 MG; Start 07/02/16 at 21:00 Atorvastatin Calcium (Lipitor) 80 mg HS PO Last administered on 07/03/16at 21: 21; Admin Dose 80 MG; Start 07/02/16 at 21:00; Status Future Hold Ondansetron HCl (Zofran Inj) 4 mg Q6H PRN IV NAUSEA AND/OR VOMITING Last administered on 07/15/16 07:04; Admin Dose 4 MG; Start 07/02/16 at 11:30 Acetaminophen (Tylenol Tab) 650 mg Q6H PRN PO PAIN LEVEL 1-3 OR FEVER Last administered on 07/05/16at 21:52; Admin Dose 650 MG; Start 07/02/16 at 11:30 Acetaminophen (Tylenol Supp) 650 mg Q6H PRN [place] PAIN LEVEL 1-3 OR FEVER; Start 07/02/16 at 11:30 Acetaminophen/ Hydrocodone Bitart ([place] (5/325)) 1 tab Q6H PRN PO MODERATE PAIN LEVEL 4-6 Last administered on 07/07/16at 09:11; Admin Dose 1 TAB; Start 07/02/16 at 11:30 Docusate Sodium (Colace) 100 mg Q12H PRN PO CONSTIPATION; Start 07/02/16 at 11 :30 Famotidine (Pepcid) 20 mg Q12 PO Last administered on 07/17/16 21:15; Admin Dose 20 MG; Start 07/02/16 at 21:00 Heparin Sodium (Porcine) (Heparin (5000 Units/0.5 ml)) 5,000 unit Q12 SC Last administered on 07/17/16 21:17; Admin Dose 5,000 UNIT; Start 07/02/16 at 21:00 Miscellaneous Information 1 ea NOTE XX ; Start 07/02/16 at 12:00 Glucose (Glutose) 15 gm Q15M PRN PO DECREASED GLUCOSE; Start 07/02/16 at 12:00 Glucose (Glutose) 22.5 gm Q15M PRN PO DECREASED GLUCOSE; Start 07/02/16 at 12: 00 Dextrose (D50w Syringe) 25 ml Q15M PRN IV DECREASED GLUCOSE; Start 07/02/16 at 12:00 Dextrose (D50w Syringe) 50 ml Q15M PRN IV DECREASED GLUCOSE; Start 07/02/16 at 12:00 Glucagon (Glucagen) 1 mg Q15M PRN IM DECREASED GLUCOSE; Start 07/02/16 at 12: 00 Glucose (Glutose) 15 gm Q15M PRN BUCCAL DECREASED GLUCOSE; Start 07/02/16 at 12:00 Hydralazine HCl (Apresoline) 10 mg Q6H PRN IV SBP>160; Start 07/02/16 at 15:00 Lorazepam (Ativan) 1 mg Q6H PRN IV anxiety; Start 07/05/16 at 14:00 Zolpidem Tartrate (Ambien) 5 mg HS PRN PO INSOMNIA; Start 07/05/16 at 14:00 Lorazepam (Ativan) 1 mg Q6H PRN IM anxiety; Start 07/05/16 at 15:00 Alprazolam (Xanax) 1 mg TID PRN PO ANXIETY Last administered on 07/05/16at 21: 52; Admin Dose 1 MG; Start 07/05/16 at 21:00 Hydromorphone HCl (Dilaudid) 0.5 mg Q4H PRN IV PAIN Last administered on 11:03; Admin Dose 0.5 MG; Start 07/07/16 at 13:00 Oxycodone/ Acetaminophen (Percocet (5/ 325)) 1 tab Q4H PRN PO PAIN Last administered on 07/13/16at 00:13; Admin Dose 1 TAB; Start 07/07/16 at 13:00 Guaifenesin/ Codeine Phosphate (Robitussin Ac Liquid Cup) 5 ml Q6H PRN PO COUGH Last administered on 07/10/16at 14:35; Admin Dose 5 ML; Start 07/10/16 at 14:30 Levofloxacin (Levaquin) 500 mg DAILY@06 PO Last administered on 07/18/16 05:22 ; Admin Dose 500 MG; Start 07/13/16 at 06:00 Fish Oil (Fish Oil) 2,000 mg BID PO Last administered on 07/17/16 21:14; Admin Dose 2,000 MG; Start 07/16/16 at 21:00 Hydralazine HCl (Apresoline) 25 mg Q12 PO Last administered on 07/17/16 21:14; Admin Dose 25 MG; Start 07/16/16 at 21:00 Metoprolol Succinate (Toprol Xl) 50 mg BID PO Last administered on 07/17/16 21: 15; Admin Dose 50 MG; Start 07/16/16 at 21:00 Montelukast Sodium 10 mg 10 mg HS PO Last administered on 07/17/16 21:15; Admin Dose 10 MG; Start 07/16/16 at 21:00 Cefepime HCl (Maxipime 1gm/50 ml (Pmx)) 50 ml @ 100 mls/hr Q12 IVPB Last administered on 07/18/16 08:43; Admin Dose 100 MLS/HR; Start 07/17/16 at 13:30 Insulin Glargine (Lantus) 40 unit HS SC Last administered on 07/17/16 21:20; Admin Dose 40 UNIT; Start 07/17/16 at 21:00 Diagnostic Test (Pha) (Accucheck) 1 ea 02 XX ; Start 07/18/16 at 02:00 Assessment/Plan Chief Complaint/Hosp Course MICROBIOLOGY: Sputum culture on 07/03 grew Staphylococcus aureus. Influenza swab was negative. Urine culture negative. Stool for C diff negative. ANTIMICROBIALS: The patient is on: 1. Levaquin 2. Cefepime PHYSICAL EXAMINATION: GENERAL: This is an obese, well-developed middle-aged [place]ian-speaking man who is alert, in no distress. HEENT: Head atraumatic, normocephalic. Sclerae anicteric. Buccal mucosa pink. NECK: Supple, trachea midline. CHEST: Rise symmetrical. Breath sounds diminished to bases. HEART: S1, S2. ABDOMEN: Soft. Bowel tones present. EXTREMITIES: No cyanosis. ASSESSMENT: 1. Acute on chronic respiratory failure. 2. Right upper lobe consolidation with parapneumonic effusion consistent with pneumonia ?HCAP. 3. Obesity. 4. Acute renal failure. 5. Emphysema. PLAN: Stable, continue present care, pulmonary rec-s noted==> needs bx. DW staff Problems: BONNIE MONTILLA NP Jul 18, 2016 12:27
--- NOTE | 2016-07-18 16:43 | PN ---
Date/Time of Note Date/Time of Note DATE: 07/18/16 TIME: 16:41 Assessment/Plan VTE Prophylaxis VTE Prophylaxis Intervention: SCD's Lines/Catheters IV C[facility]ter Type [facility]from [facility] [place] [facility] Urinary Cath still in place: No Assessment/Plan Chief Complaint/Hosp Course Chief Complaint/Hosp Course 1. Right upper lobe Pneumonia. Legionella pneumonia. Chest x-ray showing persistent right upper lobe infiltrate. Sputum CS with staph aureus. ->Continue Rocephin/Zithromax/Vancomycin. Infectious diseases and chief fishery division following. Biopsy was deferred secondary patient is on Plavix. As per interventional radiology recommendation patient should stop his Plavix 1 week and repeat x-ray 2. COPD exacerbation with bronchospasm. Improved. ->.Pulmonary on board.Continue bronchodilators. S/P steroids. 3. Sepsis secondary to pneumonia: Resolving. Will monitor. 4. Acute kidney injury on chronic kidney disease. SHERYL likely secondary to sepsis vs diuretic induced. Continue to monitor creatinine -> Nephrology on board. Monitor renal function closely and avoid nephrotoxins as much as possible. 5. Essential hypertension: Stable. On Isordil / hydralazine / Coreg. 6. Ischemic cardiomyopathy. Continue BBs. Unable to use ACEIs because of worsening renal function. 7. Coronary artery disease, status post multiple percutaneous coronary interventions: On ASA/ Plavix/ Statin / BB / hydralazine/nitrates. 8. Congestive heart failure exacerbation. Acute on chronic. Systolic dysfunction. . Continue medical management with Coreg, Imdur, and aspirin. Diuretics as per nephrology. 9. Hyperglycemia with Type 2 diabetes. A1C 9.8: non compliance Continue accu checks, ISS, pre-meals and Lantus to 33 units. 10. Dyslipidemia. Hold Lipitor due to liver fxn. Continue Fish oil. May need to change to low dose Zocor up on DC with LFT monitoring. 11. Hepatomegaly with Transaminase elevation-likely concurrent illness. Monitor closely. Avoid hepatotoxins as much as possible. 12. Hx of Nicotine abuse. Cessation advised DVT prophylaxis: Heparin PUD prophylaxis: Pepcid PLAN: Continue antibiotics as per infectious diseases. Latest chest x-ray showing improvement. Case was discussed with pulmonary. Pulmonary recommended continuing the patient on current antibiotics. Will adjust insulin dosing to obtain optimal blood sugar control. Problems: Subjective 24 Hr Interval Summary Free Text/Dictation Patient continues to complain of having shortness of breath The biopsy was deferred secondary patient is on Plavix Tolerating oral intake Denies of any chest pain Exam/Review of Systems Vital Signs Vitals Vital Signs Date Time Temp Pulse Resp B/P Pulse Ox O2 Delivery O2 Flow Rate FiO2 07/18/16 16:19 76 18 98 Nasal Cannula 2.0 28 07/18/16 15:10 98.2 148/79 Intake and Output 07/17/16 07/17/16 07/18/16 15:00 23:00 07:00 Intake Total 770 ml 500 ml Balance 770 ml 500 ml Exam General: The patient is morbidly obese, Not in acute distress. HEENT: Atraumatic, normocephalic. The pupils are equal and round . Neck: Supple with full range of motion. Chest: Normal expansion of the thorax during inspiration Lungs: Decreased breath sounds bilateral lung field Heart: Normal S1-S2, Regular rhythm and rate. Abdomen: Soft , nontender, nondistended , bowel sounds are present. Extremities: Normal to inspection, no edema no cyanosis Neurologic: Normal mental status,The patient is awake, alert and oriented . Results Result Diagram: 07/17/16 0545 07/17/16 0545 Results 24 hrs Laboratory Tests Test 07/17/16 16:59 07/17/16 17:35 07/17/16 20:27 07/18/16 08:16 Bedside Glucose 121 124 264 H Activated Partial Thromboplast Time 29.5 INR International Normalized Ratio 0.91 Prothrombin Time 12.2 Prothrombin Time Ratio 1.0 Test 07/18/16 12:06 Bedside Glucose 227 H Medications Medications Current Medications Aspirin (Aspirin) 81 mg DAILY PO Last administered on 07/17/16 08:55; Admin Dose 81 MG; Start 07/03/16 at 09:00 Isosorbide Dinitrate (Isordil) 20 mg TID PO Last administered on 07/18/16 12:33 ; Admin Dose 20 MG; Start 07/02/16 at 13:00 Ranolazine (Ranexa) 1,000 mg Q12 PO Last administered on 07/17/16 21:20; Admin Dose 1,000 MG; Start 07/02/16 at 21:00 Atorvastatin Calcium (Lipitor) 80 mg HS PO Last administered on 07/03/16at 21: 21; Admin Dose 80 MG; Start 07/02/16 at 21:00; Status Future Hold Ondansetron HCl (Zofran Inj) 4 mg Q6H PRN IV NAUSEA AND/OR VOMITING Last administered on 07/15/16 07:04; Admin Dose 4 MG; Start 07/02/16 at 11:30 Acetaminophen (Tylenol Tab) 650 mg Q6H PRN PO PAIN LEVEL 1-3 OR FEVER Last administered on 07/05/16at 21:52; Admin Dose 650 MG; Start 07/02/16 at 11:30 Acetaminophen (Tylenol Supp) 650 mg Q6H PRN [place] PAIN LEVEL 1-3 OR FEVER; Start 07/02/16 at 11:30 Acetaminophen/ Hydrocodone Bitart ([place] (5/325)) 1 tab Q6H PRN PO MODERATE PAIN LEVEL 4-6 Last administered on 07/07/16at 09:11; Admin Dose 1 TAB; Start 07/02/16 at 11:30 Docusate Sodium (Colace) 100 mg Q12H PRN PO CONSTIPATION; Start 07/02/16 at 11 :30 Famotidine (Pepcid) 20 mg Q12 PO Last administered on 07/17/16 21:15; Admin Dose 20 MG; Start 07/02/16 at 21:00 Heparin Sodium (Porcine) (Heparin (5000 Units/0.5 ml)) 5,000 unit Q12 SC Last administered on 07/17/16 21:17; Admin Dose 5,000 UNIT; Start 07/02/16 at 21:00 Miscellaneous Information 1 ea NOTE XX ; Start 07/02/16 at 12:00 Glucose (Glutose) 15 gm Q15M PRN PO DECREASED GLUCOSE; Start 07/02/16 at 12:00 Glucose (Glutose) 22.5 gm Q15M PRN PO DECREASED GLUCOSE; Start 07/02/16 at 12: 00 Dextrose (D50w Syringe) 25 ml Q15M PRN IV DECREASED GLUCOSE; Start 07/02/16 at 12:00 Dextrose (D50w Syringe) 50 ml Q15M PRN IV DECREASED GLUCOSE; Start 07/02/16 at 12:00 Glucagon (Glucagen) 1 mg Q15M PRN IM DECREASED GLUCOSE; Start 07/02/16 at 12: 00 Glucose (Glutose) 15 gm Q15M PRN BUCCAL DECREASED GLUCOSE; Start 07/02/16 at 12:00 Hydralazine HCl (Apresoline) 10 mg Q6H PRN IV SBP>160 Last administered on 12:36; Admin Dose 10 MG; Start 07/02/16 at 15:00 Lorazepam (Ativan) 1 mg Q6H PRN IV anxiety; Start 07/05/16 at 14:00 Zolpidem Tartrate (Ambien) 5 mg HS PRN PO INSOMNIA; Start 07/05/16 at 14:00 Lorazepam (Ativan) 1 mg Q6H PRN IM anxiety; Start 07/05/16 at 15:00 Alprazolam (Xanax) 1 mg TID PRN PO ANXIETY Last administered on 07/05/16at 21: 52; Admin Dose 1 MG; Start 07/05/16 at 21:00 Hydromorphone HCl (Dilaudid) 0.5 mg Q4H PRN IV PAIN Last administered on 15:12; Admin Dose 0.5 MG; Start 07/07/16 at 13:00 Oxycodone/ Acetaminophen (Percocet (5/ 325)) 1 tab Q4H PRN PO PAIN Last administered on 07/13/16at 00:13; Admin Dose 1 TAB; Start 07/07/16 at 13:00 Guaifenesin/ Codeine Phosphate (Robitussin Ac Liquid Cup) 5 ml Q6H PRN PO COUGH Last administered on 07/10/16at 14:35; Admin Dose 5 ML; Start 07/10/16 at 14:30 Levofloxacin (Levaquin) 500 mg DAILY@06 PO Last administered on 07/18/16 05:22 ; Admin Dose 500 MG; Start 07/13/16 at 06:00 Fish Oil (Fish Oil) 2,000 mg BID PO Last administered on 07/17/16 21:14; Admin Dose 2,000 MG; Start 07/16/16 at 21:00 Hydralazine HCl (Apresoline) 25 mg Q12 PO Last administered on 07/17/16 21:14; Admin Dose 25 MG; Start 07/16/16 at 21:00 Metoprolol Succinate (Toprol Xl) 50 mg BID PO Last administered on 07/17/16 21: 15; Admin Dose 50 MG; Start 07/16/16 at 21:00 Montelukast Sodium 10 mg 10 mg HS PO Last administered on 07/17/16 21:15; Admin Dose 10 MG; Start 07/16/16 at 21:00 Cefepime HCl (Maxipime 1gm/50 ml (Pmx)) 50 ml @ 100 mls/hr Q12 IVPB Last administered on 07/18/16 08:43; Admin Dose 100 MLS/HR; Start 07/17/16 at 13:30 Diagnostic Test (Pha) (Accucheck) 1 ea 02 XX ; Start 07/18/16 at 02:00 Insulin Glargine (Lantus) 43 unit HS SC ; Start 07/18/16 at 21:00; Status NARENDRA BANGURA MD Jul 18, 2016 16:43
--- NOTE | 2016-07-18 16:56 | CONS ---
Date/Time of Note Date/Time of Note DATE: 07/18/16 TIME: 16:54 Consult Date/Type/Reason Admit Date/Time Jul 02, 2016 at 09:58 Type of Consultation: pulmonary Ordering Provider: NARENDRA CHAWLA MD Subjective No significant changes remains stable Objective Vital Signs Date Time Temp Pulse Resp B/P Pulse Ox O2 Delivery O2 Flow Rate FiO2 07/18/16 16:19 76 18 98 Nasal Cannula 2.0 28 07/18/16 15:10 98.2 148/79 Intake and Output 07/17/16 07/17/16 07/18/16 15:00 23:00 07:00 Intake Total 770 ml 500 ml Balance 770 ml 500 ml PHYSICAL EXAMINATION: VITAL SIGNS: as above NECK: Supple. No JVD or lymphadenopathy. CARDIAC: S1, S2, no added sounds or murmurs. CHEST: Diminished air entry bilaterally. ABDOMEN: Soft, nontender. No guarding or rebound. EXTREMITIES: No cyanosis, clubbing, edema. NEUROLOGIC: Grossly intact. No focal deficits. Results/Medications Result Diagram: 07/17/16 0545 07/17/16 0545 Results 24 hrs Laboratory Tests Test 07/17/16 16:59 07/17/16 17:35 07/17/16 20:27 07/18/16 08:16 Bedside Glucose 121 124 264 H Activated Partial Thromboplast Time 29.5 INR International Normalized Ratio 0.91 Prothrombin Time 12.2 Prothrombin Time Ratio 1.0 Test 07/18/16 12:06 Bedside Glucose 227 H Medications Current Medications Aspirin (Aspirin) 81 mg DAILY PO Last administered on 07/17/16 08:55; Admin Dose 81 MG; Start 07/03/16 at 09:00 Isosorbide Dinitrate (Isordil) 20 mg TID PO Last administered on 07/18/16 12:33 ; Admin Dose 20 MG; Start 07/02/16 at 13:00 Ranolazine (Ranexa) 1,000 mg Q12 PO Last administered on 07/17/16 21:20; Admin Dose 1,000 MG; Start 07/02/16 at 21:00 Atorvastatin Calcium (Lipitor) 80 mg HS PO Last administered on 07/03/16at 21: 21; Admin Dose 80 MG; Start 07/02/16 at 21:00; Status Future Hold Ondansetron HCl (Zofran Inj) 4 mg Q6H PRN IV NAUSEA AND/OR VOMITING Last administered on 07/15/16 07:04; Admin Dose 4 MG; Start 07/02/16 at 11:30 Acetaminophen (Tylenol Tab) 650 mg Q6H PRN PO PAIN LEVEL 1-3 OR FEVER Last administered on 07/05/16at 21:52; Admin Dose 650 MG; Start 07/02/16 at 11:30 Acetaminophen (Tylenol Supp) 650 mg Q6H PRN [place] PAIN LEVEL 1-3 OR FEVER; Start 07/02/16 at 11:30 Acetaminophen/ Hydrocodone Bitart ([place] (5/325)) 1 tab Q6H PRN PO MODERATE PAIN LEVEL 4-6 Last administered on 07/07/16at 09:11; Admin Dose 1 TAB; Start 07/02/16 at 11:30 Docusate Sodium (Colace) 100 mg Q12H PRN PO CONSTIPATION; Start 07/02/16 at 11 :30 Famotidine (Pepcid) 20 mg Q12 PO Last administered on 07/17/16 21:15; Admin Dose 20 MG; Start 07/02/16 at 21:00 Heparin Sodium (Porcine) (Heparin (5000 Units/0.5 ml)) 5,000 unit Q12 SC Last administered on 07/17/16 21:17; Admin Dose 5,000 UNIT; Start 07/02/16 at 21:00 Miscellaneous Information 1 ea NOTE XX ; Start 07/02/16 at 12:00 Glucose (Glutose) 15 gm Q15M PRN PO DECREASED GLUCOSE; Start 07/02/16 at 12:00 Glucose (Glutose) 22.5 gm Q15M PRN PO DECREASED GLUCOSE; Start 07/02/16 at 12: 00 Dextrose (D50w Syringe) 25 ml Q15M PRN IV DECREASED GLUCOSE; Start 07/02/16 at 12:00 Dextrose (D50w Syringe) 50 ml Q15M PRN IV DECREASED GLUCOSE; Start 07/02/16 at 12:00 Glucagon (Glucagen) 1 mg Q15M PRN IM DECREASED GLUCOSE; Start 07/02/16 at 12: 00 Glucose (Glutose) 15 gm Q15M PRN BUCCAL DECREASED GLUCOSE; Start 07/02/16 at 12:00 Hydralazine HCl (Apresoline) 10 mg Q6H PRN IV SBP>160 Last administered on 12:36; Admin Dose 10 MG; Start 07/02/16 at 15:00 Lorazepam (Ativan) 1 mg Q6H PRN IV anxiety; Start 07/05/16 at 14:00 Zolpidem Tartrate (Ambien) 5 mg HS PRN PO INSOMNIA; Start 07/05/16 at 14:00 Lorazepam (Ativan) 1 mg Q6H PRN IM anxiety; Start 07/05/16 at 15:00 Alprazolam (Xanax) 1 mg TID PRN PO ANXIETY Last administered on 07/05/16at 21: 52; Admin Dose 1 MG; Start 07/05/16 at 21:00 Hydromorphone HCl (Dilaudid) 0.5 mg Q4H PRN IV PAIN Last administered on 15:12; Admin Dose 0.5 MG; Start 07/07/16 at 13:00 Oxycodone/ Acetaminophen (Percocet (5/ 325)) 1 tab Q4H PRN PO PAIN Last administered on 07/13/16at 00:13; Admin Dose 1 TAB; Start 07/07/16 at 13:00 Guaifenesin/ Codeine Phosphate (Robitussin Ac Liquid Cup) 5 ml Q6H PRN PO COUGH Last administered on 07/10/16at 14:35; Admin Dose 5 ML; Start 07/10/16 at 14:30 Levofloxacin (Levaquin) 500 mg DAILY@06 PO Last administered on 07/18/16 05:22 ; Admin Dose 500 MG; Start 07/13/16 at 06:00 Fish Oil (Fish Oil) 2,000 mg BID PO Last administered on 07/17/16 21:14; Admin Dose 2,000 MG; Start 07/16/16 at 21:00 Hydralazine HCl (Apresoline) 25 mg Q12 PO Last administered on 07/17/16 21:14; Admin Dose 25 MG; Start 07/16/16 at 21:00 Metoprolol Succinate (Toprol Xl) 50 mg BID PO Last administered on 07/17/16 21: 15; Admin Dose 50 MG; Start 07/16/16 at 21:00 Montelukast Sodium 10 mg 10 mg HS PO Last administered on 07/17/16 21:15; Admin Dose 10 MG; Start 07/16/16 at 21:00 Cefepime HCl (Maxipime 1gm/50 ml (Pmx)) 50 ml @ 100 mls/hr Q12 IVPB Last administered on 07/18/16 08:43; Admin Dose 100 MLS/HR; Start 07/17/16 at 13:30 Diagnostic Test (Pha) (Accucheck) 1 ea 02 XX ; Start 07/18/16 at 02:00 Insulin Glargine (Lantus) 43 unit HS SC ; Start 07/18/16 at 21:00 Assessment/Plan Chief Complaint/Hosp Course IMPRESSION AND PLAN: 1. Right upper lobe pneumonia. Persistent infiltrates despite antibiotics. 2. Renal insufficiency, DC Lasix 3. History of diabetes. 4. History of tobacco use. Discussed with radiology Will not perform biopsy loss patient is on Plavix and aspirin both to be held patient to be discharged with repeat chest x-ray in 1 week's time following 7 more days of oral antibiotics If chest x-ray shows improvement in infiltrate now biopsies needed If there is no improvement in chest x-ray and infiltrate is still persistent then he will need lung biopsy Problems: MAXX APPLE MD, [facility] Jul 18, 2016 16:56
--- NOTE | 2016-07-18 19:20 | CONS ---
Date/Time of Note Date/Time of Note DATE: 07/18/16 TIME: 19:19 Assessment/Plan Assessment/Plan Chief Complaint/Hosp Course IMPRESSION: 1. The patient has pneumonia./EMPHYSEMA/legionella pneumonia 2. jvoani w ckd stable 3. Underlying chronic kidney disease. 4. Diabetes mellitus. 5. Hypertension. 6. Anemia. 7. EDEMA BETTER 8. Obesity. 9. Dyslipidemia. 10 hypernatremia on diuretic BETTER 11 leg edema+ plan f/u bmp LASIX per id per pulmonary Problems: Consultation Date/Type/Reason Admit Date/Time Jul 02, 2016 at 09:58 Type of Consultation: pulmonary Referring Provider: NARENDRA CHAWLA MD 24 HR Interval Summary Constitutional: improved Exam/Review of Systems Vital Signs Vitals Vital Signs Date Time Temp Pulse Resp B/P Pulse Ox O2 Delivery O2 Flow Rate FiO2 07/18/16 16:19 76 18 98 Nasal Cannula 2.0 28 07/18/16 15:10 98.2 148/79 Intake and Output 07/17/16 07/17/16 07/18/16 15:00 23:00 07:00 Intake Total 770 ml 500 ml Balance 770 ml 500 ml Exam Respiratory: diminished breath sounds Cardiovascular: regular rate and rhythm Gastrointestinal: soft Genitourinary - Male: No CVA tenderness Musculoskeletal: nl extremities to inspection Extremities: edema (+), normal pulses Results Result Diagram: 07/17/16 0545 07/17/16 0545 Results 24 hrs Laboratory Tests Test 07/17/16 20:27 07/18/16 08:16 07/18/16 12:06 07/18/16 16:57 Bedside Glucose 124 264 H 227 H 119 Medications Medications Current Medications Aspirin (Aspirin) 81 mg DAILY PO Last administered on 07/17/16 08:55; Admin Dose 81 MG; Start 07/03/16 at 09:00 Isosorbide Dinitrate (Isordil) 20 mg TID PO Last administered on 07/18/16 12:33 ; Admin Dose 20 MG; Start 07/02/16 at 13:00 Ranolazine (Ranexa) 1,000 mg Q12 PO Last administered on 07/17/16 21:20; Admin Dose 1,000 MG; Start 07/02/16 at 21:00 Atorvastatin Calcium (Lipitor) 80 mg HS PO Last administered on 07/03/16at 21: 21; Admin Dose 80 MG; Start 07/02/16 at 21:00; Status Future Hold Ondansetron HCl (Zofran Inj) 4 mg Q6H PRN IV NAUSEA AND/OR VOMITING Last administered on 07/15/16 07:04; Admin Dose 4 MG; Start 07/02/16 at 11:30 Acetaminophen (Tylenol Tab) 650 mg Q6H PRN PO PAIN LEVEL 1-3 OR FEVER Last administered on 07/05/16 21:52; Admin Dose 650 MG; Start 07/02/16 at 11:30 Acetaminophen (Tylenol Supp) 650 mg Q6H PRN [place] PAIN LEVEL 1-3 OR FEVER; Start 07/02/16 at 11:30 Acetaminophen/ Hydrocodone Bitart ([place] (5/325)) 1 tab Q6H PRN PO MODERATE PAIN LEVEL 4-6 Last administered on 07/07/16 09:11; Admin Dose 1 TAB; Start 07/02/16 at 11:30 Docusate Sodium (Colace) 100 mg Q12H PRN PO CONSTIPATION; Start 07/02/16 at 11 :30 Famotidine (Pepcid) 20 mg Q12 PO Last administered on 07/17/16 21:15; Admin Dose 20 MG; Start 07/02/16 at 21:00 Heparin Sodium (Porcine) (Heparin (5000 Units/0.5 ml)) 5,000 unit Q12 SC Last administered on 07/17/16 21:17; Admin Dose 5,000 UNIT; Start 07/02/16 at 21:00 Miscellaneous Information 1 ea NOTE XX ; Start 07/02/16 at 12:00 Glucose (Glutose) 15 gm Q15M PRN PO DECREASED GLUCOSE; Start 07/02/16 at 12:00 Glucose (Glutose) 22.5 gm Q15M PRN PO DECREASED GLUCOSE; Start 07/02/16 at 12: 00 Dextrose (D50w Syringe) 25 ml Q15M PRN IV DECREASED GLUCOSE; Start 07/02/16 at 12:00 Dextrose (D50w Syringe) 50 ml Q15M PRN IV DECREASED GLUCOSE; Start 07/02/16 at 12:00 Glucagon (Glucagen) 1 mg Q15M PRN IM DECREASED GLUCOSE; Start 07/02/16 at 12: 00 Glucose (Glutose) 15 gm Q15M PRN BUCCAL DECREASED GLUCOSE; Start 07/02/16 at 12:00 Hydralazine HCl (Apresoline) 10 mg Q6H PRN IV SBP>160 Last administered on 12:36; Admin Dose 10 MG; Start 07/02/16 at 15:00 Lorazepam (Ativan) 1 mg Q6H PRN IV anxiety; Start 07/05/16 at 14:00 Zolpidem Tartrate (Ambien) 5 mg HS PRN PO INSOMNIA; Start 07/05/16 at 14:00 Lorazepam (Ativan) 1 mg Q6H PRN IM anxiety; Start 07/05/16 at 15:00 Alprazolam (Xanax) 1 mg TID PRN PO ANXIETY Last administered on 07/05/16at 21: 52; Admin Dose 1 MG; Start 07/05/16 at 21:00 Hydromorphone HCl (Dilaudid) 0.5 mg Q4H PRN IV PAIN Last administered on 15:12; Admin Dose 0.5 MG; Start 07/07/16 at 13:00 Oxycodone/ Acetaminophen (Percocet (5/ 325)) 1 tab Q4H PRN PO PAIN Last administered on 07/13/16at 00:13; Admin Dose 1 TAB; Start 07/07/16 at 13:00 Guaifenesin/ Codeine Phosphate (Robitussin Ac Liquid Cup) 5 ml Q6H PRN PO COUGH Last administered on 07/10/16at 14:35; Admin Dose 5 ML; Start 07/10/16 at 14:30 Levofloxacin (Levaquin) 500 mg DAILY@06 PO Last administered on 07/18/16 05:22 ; Admin Dose 500 MG; Start 07/13/16 at 06:00 Fish Oil (Fish Oil) 2,000 mg BID PO Last administered on 07/17/16 21:14; Admin Dose 2,000 MG; Start 07/16/16 at 21:00 Hydralazine HCl (Apresoline) 25 mg Q12 PO Last administered on 07/17/16 21:14; Admin Dose 25 MG; Start 07/16/16 at 21:00 Metoprolol Succinate (Toprol Xl) 50 mg BID PO Last administered on 07/17/16 21: 15; Admin Dose 50 MG; Start 07/16/16 at 21:00 Montelukast Sodium 10 mg 10 mg HS PO Last administered on 07/17/16 21:15; Admin Dose 10 MG; Start 07/16/16 at 21:00 Cefepime HCl (Maxipime 1gm/50 ml (Pmx)) 50 ml @ 100 mls/hr Q12 IVPB Last administered on 07/18/16 08:43; Admin Dose 100 MLS/HR; Start 07/17/16 at 13:30 Diagnostic Test (Pha) (Accucheck) 1 ea 02 XX ; Start 07/18/16 at 02:00 Insulin Glargine (Lantus) 43 unit HS SC ; Start 07/18/16 at 21:00 ROBB ALBERT MD Jul 18, 2016 19:20
[2016-07-18] MEDS: MONTELUKAST 10 MG TAB PO SCH (20:55)
[2016-07-18] MEDS ORDERED: INSULIN GLARGINE [LANtus] 3 ML PEN SC SCH (21:00)
[2016-07-19] VITALS (11 sets, daily range): BP systolic 106–154; BP diastolic 58–84; PULSE 67–81; RESP 20
[2016-07-19] MEDS: ALBUTEROL/IPRATROPIUM (NEB) 3 ML AMP HHN SCH ×5 (01:00→16:40)
[2016-07-19] MEDS: ACCUCHECK XX SCH (02:00)
[2016-07-19] MEDS: HYDROmorphONE 1 MG/ML SYG IV PRN ×3 (05:00→15:30)
[2016-07-19 06:52] LABS: BASOPHILS % 0.5 % (0.0-2.0); EOSINOPHILS % 0.7 % (0.0-7.0); HEMOGLOBIN 12.5 g/dl (14.0-18.0); LYMPHOCYTES # 1.2 10^3/ul (0.8-2.9); LYMPHOCYTES % 17.8 % (15.0-51.0); MEAN CORPUSCULAR HEMOGLOBIN 26.3 pg (29.0-33.0); MEAN CORPUSCULAR HGB CONC 32.9 g/dl (32.0-37.0); MEAN CORPUSCULAR VOLUME 79.8 fl (82.0-101.0); MEAN PLATELET VOLUME 10.1 fl (7.4-10.4); MONOCYTE # 0.6 10^3/ul (0.3-0.9); MONOCYTES % 8.9 % (0.0-11.0); NEUTROPHILS % 72.1 % (39.0-77.0); PLATELET COUNT 124 10^3/UL (140-440); RED BLOOD COUNT 4.76 10^6/ul (4.70-6.10)
[2016-07-19] MEDS: LEVOFLOXACIN 500 MG TAB PO SCH (06:52)
[2016-07-19 06:59] LABS: CONDITION 1; LH ANALYZER COMMENTS 1
[2016-07-19 07:02] LABS: POTASSIUM 4.2 mmol/L (3.5-5.1)
[2016-07-19 07:05] LABS: CREATININE 1.41 mg/dl (0.61-1.24)
[2016-07-19 07:06] LABS: CALCIUM 8.5 mg/dl (8.4-10.2)
[2016-07-19] MEDS: INSULIN ASPART [NOVOLOG] 3 ML PEN SC SCH ×6 (08:58→17:46)
[2016-07-19] MEDS: RANOLAZINE (SR) 500 MG TAB PO SCH (10:15)
[2016-07-19] MEDS: FISH OIL 1,000 MG CAP PO SCH (10:17)
[2016-07-19] MEDS: ASPIRIN 81 MG TAB PO SCH (10:17)
[2016-07-19] MEDS: CEFEPIME 1GM/50 ML (PMX) 50 ML IVPB SCH (10:18)
[2016-07-19] MEDS: ISOSORBIDE DINITRATE 20 MG TAB PO SCH ×2 (10:18→13:21)
[2016-07-19] MEDS: FAMOTIDINE 20 MG TAB PO SCH (10:18)
[2016-07-19] MEDS: METOPROLOL (XL) 50 MG TAB PO SCH (10:19)
[2016-07-19] MEDS: HEPARIN 5,000 UNIT/0.5 ML SYG SC SCH (10:23)
--- NOTE | 2016-07-19 13:23 | CONS ---
Date/Time of Note Date/Time of Note DATE: 07/19/16 TIME: 13:22 Assessment/Plan Assessment/Plan Chief Complaint/Hosp Course IMPRESSION: 1. The patient has pneumonia./EMPHYSEMA/legionella pneumonia 2. jovani w ckd stable 3. Underlying chronic kidney disease. 4. Diabetes mellitus. 5. Hypertension. 6. Anemia. 7. EDEMA BETTER 8. Obesity. 9. Dyslipidemia. 10 hypernatremia on diuretic BETTER 11 leg edema better plan f/u bmp LASIX per id per pulmonary Problems: Consultation Date/Type/Reason Admit Date/Time Jul 02, 2016 at 09:58 Type of Consultation: renal Referring Provider: NARENDRA CHAWLA MD 24 HR Interval Summary Constitutional: no complaints Exam/Review of Systems Vital Signs Vitals Vital Signs Date Time Temp Pulse Resp B/P Pulse Ox O2 Delivery O2 Flow Rate FiO2 07/19/16 12:57 72 20 95 Nasal Cannula 3.0 07/19/16 11:26 98.0 131/65 07/19/16 05:42 28 Intake and Output 07/18/16 07/18/16 07/19/16 15:00 23:00 07:00 Intake Total 540 ml 350 ml Balance 540 ml 350 ml Exam Neck: supple Respiratory: diminished breath sounds Cardiovascular: regular rate and rhythm Gastrointestinal: soft Extremities: edema (+) Results Result Diagram: 07/19/16 0525 07/19/16 0525 Results 24 hrs Laboratory Tests Test 07/18/16 16:57 07/18/16 20:43 07/19/16 05:25 07/19/16 08:49 Bedside Glucose 119 141 160 Anion Gap 11 Basophils # 0.0 Basophils % 0.5 Blood Morphology Comment Blood Urea Nitrogen 31 H Calcium Level 8.5 Carbon Dioxide Level 32 H Chloride Level 102 Creatinine 1.41 H Eosinophils # 0.0 Eosinophils % 0.7 Glucose Level 95 # Hematocrit 38.0 L Hemoglobin 12.5 L Lymphocytes # 1.2 Lymphocytes % 17.8 Mean Corpuscular Hemoglobin 26.3 L Mean Corpuscular Hemoglobin Concent 32.9 Mean Corpuscular Volume 79.8 L Mean Platelet Volume 10.1 Monocytes # 0.6 Monocytes % 8.9 Neutrophils # 5.0 Neutrophils % 72.1 Nucleated Red Blood Cells # 0.0 Nucleated Red Blood Cells % 0.0 Platelet Count 124 L Potassium Level 4.2 Red Blood Count 4.76 Red Cell Distribution Width 17.0 H Sodium Level 141 White Blood Count 7.0 Test 07/19/16 13:01 Bedside Glucose 111 Medications Medications Current Medications Aspirin (Aspirin) 81 mg DAILY PO Last administered on 07/19/16 10:17; Admin Dose 81 MG; Start 07/03/16 at 09:00 Isosorbide Dinitrate (Isordil) 20 mg TID PO Last administered on 07/19/16 13:21 ; Admin Dose 20 MG; Start 07/02/16 at 13:00 Ranolazine (Ranexa) 1,000 mg Q12 PO Last administered on 07/19/16 10:15; Admin Dose 1,000 MG; Start 07/02/16 at 21:00 Atorvastatin Calcium (Lipitor) 80 mg HS PO Last administered on 07/03/16at 21: 21; Admin Dose 80 MG; Start 07/02/16 at 21:00; Status Future Hold Ondansetron HCl (Zofran Inj) 4 mg Q6H PRN IV NAUSEA AND/OR VOMITING Last administered on 07/15/16 07:04; Admin Dose 4 MG; Start 07/02/16 at 11:30 Acetaminophen (Tylenol Tab) 650 mg Q6H PRN PO PAIN LEVEL 1-3 OR FEVER Last administered on 07/05/16at 21:52; Admin Dose 650 MG; Start 07/02/16 at 11:30 Acetaminophen (Tylenol Supp) [address] PAIN LEVEL 1-3 OR FEVER; Start 07/02/16 at 11:30 Acetaminophen/ Hydrocodone Bitart ([place] (5/325)) 1 tab Q6H PRN PO MODERATE PAIN LEVEL 4-6 Last administered on 07/07/16 09:11; Admin Dose 1 TAB; Start 07/02/16 at 11:30 Docusate Sodium (Colace) 100 mg Q12H PRN PO CONSTIPATION; Start 07/02/16 at 11 :30 Famotidine (Pepcid) 20 mg Q12 PO Last administered on 07/19/16 10:18; Admin Dose 20 MG; Start 07/02/16 at 21:00 Heparin Sodium (Porcine) (Heparin (5000 Units/0.5 ml)) 5,000 unit Q12 SC Last administered on 07/19/16 10:23; Admin Dose 5,000 UNIT; Start 07/02/16 at 21:00 Miscellaneous Information 1 ea NOTE XX ; Start 07/02/16 at 12:00 Glucose (Glutose) 15 gm Q15M PRN PO DECREASED GLUCOSE; Start 07/02/16 at 12:00 Glucose (Glutose) 22.5 gm Q15M PRN PO DECREASED GLUCOSE; Start 07/02/16 at 12: 00 Dextrose (D50w Syringe) 25 ml Q15M PRN IV DECREASED GLUCOSE; Start 07/02/16 at 12:00 Dextrose (D50w Syringe) 50 ml Q15M PRN IV DECREASED GLUCOSE; Start 07/02/16 at 12:00 Glucagon (Glucagen) 1 mg Q15M PRN IM DECREASED GLUCOSE; Start 07/02/16 at 12: 00 Glucose (Glutose) 15 gm Q15M PRN BUCCAL DECREASED GLUCOSE; Start 07/02/16 at 12:00 Hydralazine HCl (Apresoline) 10 mg Q6H PRN IV SBP>160 Last administered on 12:36; Admin Dose 10 MG; Start 07/02/16 at 15:00 Lorazepam (Ativan) 1 mg Q6H PRN IV anxiety; Start 07/05/16 at 14:00 Zolpidem Tartrate (Ambien) 5 mg HS PRN PO INSOMNIA; Start 07/05/16 at 14:00 Lorazepam (Ativan) 1 mg Q6H PRN IM anxiety; Start 07/05/16 at 15:00 Alprazolam (Xanax) 1 mg TID PRN PO ANXIETY Last administered on 07/05/16at 21: 52; Admin Dose 1 MG; Start 07/05/16 at 21:00 Hydromorphone HCl (Dilaudid) 0.5 mg Q4H PRN IV PAIN Last administered on 05:00; Admin Dose 0.5 MG; Start 07/07/16 at 13:00 Oxycodone/ Acetaminophen (Percocet (5/ 325)) 1 tab Q4H PRN PO PAIN Last administered on 07/13/16at 00:13; Admin Dose 1 TAB; Start 07/07/16 at 13:00 Guaifenesin/ Codeine Phosphate (Robitussin Ac Liquid Cup) 5 ml Q6H PRN PO COUGH Last administered on 07/10/16at 14:35; Admin Dose 5 ML; Start 07/10/16 at 14:30 Levofloxacin (Levaquin) 500 mg DAILY@06 PO Last administered on 07/19/16 06:52 ; Admin Dose 500 MG; Start 07/13/16 at 06:00 Fish Oil (Fish Oil) 2,000 mg BID PO Last administered on 07/19/16 10:17; Admin Dose 2,000 MG; Start 07/16/16 at 21:00 Hydralazine HCl (Apresoline) 25 mg Q12 PO Last administered on 07/19/16 10:17; Admin Dose 25 MG; Start 07/16/16 at 21:00 Metoprolol Succinate (Toprol Xl) 50 mg BID PO Last administered on 07/19/16 10: 19; Admin Dose 50 MG; Start 07/16/16 at 21:00 Montelukast Sodium 10 mg 10 mg HS PO Last administered on 07/18/16 20:55; Admin Dose 10 MG; Start 07/16/16 at 21:00 Cefepime HCl (Maxipime 1gm/50 ml (Pmx)) 50 ml @ 100 mls/hr Q12 IVPB Last administered on 07/19/16 10:18; Admin Dose 100 MLS/HR; Start 07/17/16 at 13:30 Diagnostic Test (Pha) (Accucheck) 1 ea 02 XX ; Start 07/18/16 at 02:00 Insulin Glargine (Lantus) 43 unit HS SC Last administered on 07/18/16 20:50; Admin Dose 43 UNIT; Start 07/18/16 at 21:00 ROBB ALBERT MD Jul 19, 2016 13:23
--- NOTE | 2016-07-19 13:25 | CONS ---
Date/Time of Note Date/Time of Note DATE: 07/19/16 TIME: 13:24 Consult Date/Type/Reason Admit Date/Time Jul 02, 2016 at 09:58 Type of Consultation: Pulm Ordering Provider: NARENDRA CHAWLA MD Subjective comfortable. no shortness of breath Objective Vital Signs Date Time Temp Pulse Resp B/P Pulse Ox O2 Delivery O2 Flow Rate FiO2 07/19/16 12:57 72 20 95 Nasal Cannula 3.0 07/19/16 11:26 98.0 131/65 07/19/16 05:42 28 Intake and Output 07/18/16 07/18/16 07/19/16 14:59 22:59 06:59 Intake Total 540 ml 350 ml Balance 540 ml 350 ml PHYSICAL EXAMINATION: VITAL SIGNS: as above NECK: Supple. No JVD or lymphadenopathy. CARDIAC: S1, S2, no added sounds or murmurs. CHEST: Diminished air entry bilaterally. ABDOMEN: Soft, nontender. No guarding or rebound. EXTREMITIES: No cyanosis, clubbing, edema. NEUROLOGIC: Grossly intact. No focal deficits. Results/Medications Result Diagram: 07/19/16 0525 07/19/16 0525 Results 24 hrs Laboratory Tests Test 07/18/16 16:57 07/18/16 20:43 07/19/16 05:25 07/19/16 08:49 Bedside Glucose 119 141 160 Anion Gap 11 Basophils # 0.0 Basophils % 0.5 Blood Morphology Comment Blood Urea Nitrogen 31 H Calcium Level 8.5 Carbon Dioxide Level 32 H Chloride Level 102 Creatinine 1.41 H Eosinophils # 0.0 Eosinophils % 0.7 Glucose Level 95 # Hematocrit 38.0 L Hemoglobin 12.5 L Lymphocytes # 1.2 Lymphocytes % 17.8 Mean Corpuscular Hemoglobin 26.3 L Mean Corpuscular Hemoglobin Concent 32.9 Mean Corpuscular Volume 79.8 L Mean Platelet Volume 10.1 Monocytes # 0.6 Monocytes % 8.9 Neutrophils # 5.0 Neutrophils % 72.1 Nucleated Red Blood Cells # 0.0 Nucleated Red Blood Cells % 0.0 Platelet Count 124 L Potassium Level 4.2 Red Blood Count 4.76 Red Cell Distribution Width 17.0 H Sodium Level 141 White Blood Count 7.0 Test 07/19/16 13:01 Bedside Glucose 111 Medications Current Medications Aspirin (Aspirin) 81 mg DAILY PO Last administered on 07/19/16 10:17; Admin Dose 81 MG; Start 07/03/16 at 09:00 Isosorbide Dinitrate (Isordil) 20 mg TID PO Last administered on 07/19/16 13:21 ; Admin Dose 20 MG; Start 07/02/16 at 13:00 Ranolazine (Ranexa) 1,000 mg Q12 PO Last administered on 07/19/16 10:15; Admin Dose 1,000 MG; Start 07/02/16 at 21:00 Atorvastatin Calcium (Lipitor) 80 mg HS PO Last administered on 07/03/16at 21: 21; Admin Dose 80 MG; Start 07/02/16 at 21:00; Status Future Hold Ondansetron HCl (Zofran Inj) 4 mg Q6H PRN IV NAUSEA AND/OR VOMITING Last administered on 07/15/16 07:04; Admin Dose 4 MG; Start 07/02/16 at 11:30 Acetaminophen (Tylenol Tab) 650 mg Q6H PRN PO PAIN LEVEL 1-3 OR FEVER Last administered on 07/05/16at 21:52; Admin Dose 650 MG; Start 07/02/16 at 11:30 Acetaminophen (Tylenol Supp) 650 mg Q6H PRN [place] PAIN LEVEL 1-3 OR FEVER; Start 07/02/16 at 11:30 Acetaminophen/ Hydrocodone Bitart ([place] (5/325)) 1 tab Q6H PRN PO MODERATE PAIN LEVEL 4-6 Last administered on 07/07/16at 09:11; Admin Dose 1 TAB; Start 07/02/16 at 11:30 Docusate Sodium (Colace) 100 mg Q12H PRN PO CONSTIPATION; Start 07/02/16 at 11 :30 Famotidine (Pepcid) 20 mg Q12 PO Last administered on 07/19/16 10:18; Admin Dose 20 MG; Start 07/02/16 at 21:00 Heparin Sodium (Porcine) (Heparin (5000 Units/0.5 ml)) 5,000 unit Q12 SC Last administered on 07/19/16 10:23; Admin Dose 5,000 UNIT; Start 07/02/16 at 21:00 Miscellaneous Information 1 ea NOTE XX ; Start 07/02/16 at 12:00 Glucose (Glutose) 15 gm Q15M PRN PO DECREASED GLUCOSE; Start 07/02/16 at 12:00 Glucose (Glutose) 22.5 gm Q15M PRN PO DECREASED GLUCOSE; Start 07/02/16 at 12: 00 Dextrose (D50w Syringe) 25 ml Q15M PRN IV DECREASED GLUCOSE; Start 07/02/16 at 12:00 Dextrose (D50w Syringe) 50 ml Q15M PRN IV DECREASED GLUCOSE; Start 07/02/16 at 12:00 Glucagon (Glucagen) 1 mg Q15M PRN IM DECREASED GLUCOSE; Start 07/02/16 at 12: 00 Glucose (Glutose) 15 gm Q15M PRN BUCCAL DECREASED GLUCOSE; Start 07/02/16 at 12:00 Hydralazine HCl (Apresoline) 10 mg Q6H PRN IV SBP>160 Last administered on 12:36; Admin Dose 10 MG; Start 07/02/16 at 15:00 Lorazepam (Ativan) 1 mg Q6H PRN IV anxiety; Start 07/05/16 at 14:00 Zolpidem Tartrate (Ambien) 5 mg HS PRN PO INSOMNIA; Start 07/05/16 at 14:00 Lorazepam (Ativan) 1 mg Q6H PRN IM anxiety; Start 07/05/16 at 15:00 Alprazolam (Xanax) 1 mg TID PRN PO ANXIETY Last administered on 07/05/16at 21: 52; Admin Dose 1 MG; Start 07/05/16 at 21:00 Hydromorphone HCl (Dilaudid) 0.5 mg Q4H PRN IV PAIN Last administered on 05:00; Admin Dose 0.5 MG; Start 07/07/16 at 13:00 Oxycodone/ Acetaminophen (Percocet (5/ 325)) 1 tab Q4H PRN PO PAIN Last administered on 07/13/16at 00:13; Admin Dose 1 TAB; Start 07/07/16 at 13:00 Guaifenesin/ Codeine Phosphate (Robitussin Ac Liquid Cup) 5 ml Q6H PRN PO COUGH Last administered on 07/10/16at 14:35; Admin Dose 5 ML; Start 07/10/16 at 14:30 Levofloxacin (Levaquin) 500 mg DAILY@06 PO Last administered on 07/19/16 06:52 ; Admin Dose 500 MG; Start 07/13/16 at 06:00 Fish Oil (Fish Oil) 2,000 mg BID PO Last administered on 07/19/16 10:17; Admin Dose 2,000 MG; Start 07/16/16 at 21:00 Hydralazine HCl (Apresoline) 25 mg Q12 PO Last administered on 07/19/16 10:17; Admin Dose 25 MG; Start 07/16/16 at 21:00 Metoprolol Succinate (Toprol Xl) 50 mg BID PO Last administered on 07/19/16 10: 19; Admin Dose 50 MG; Start 07/16/16 at 21:00 Montelukast Sodium 10 mg 10 mg HS PO Last administered on 07/18/16 20:55; Admin Dose 10 MG; Start 07/16/16 at 21:00 Cefepime HCl (Maxipime 1gm/50 ml (Pmx)) 50 ml @ 100 mls/hr Q12 IVPB Last administered on 07/19/16 10:18; Admin Dose 100 MLS/HR; Start 07/17/16 at 13:30 Diagnostic Test (Pha) (Accucheck) 1 ea 02 XX ; Start 07/18/16 at 02:00 Insulin Glargine (Lantus) 43 unit HS SC Last administered on 07/18/16 20:50; Admin Dose 43 UNIT; Start 07/18/16 at 21:00 Assessment/Plan Chief Complaint/Hosp Course IMPRESSION AND PLAN: 1. Right upper lobe pneumonia. Persistent infiltrates despite antibiotics. 2. Renal insufficiency, DC Lasix 3. History of diabetes. 4. History of tobacco use. Discussed with radiology Will not perform biopsy loss patient is on Plavix and aspirin both to be held patient to be discharged with repeat chest x-ray in 1 week's time following 7 more days of oral antibiotics If chest x-ray shows improvement in infiltrate now biopsies needed If there is no improvement in chest x-ray and infiltrate is still persistent then he will need lung biopsy anticipate discharge today. Problems: MAXX APPLE MD, [facility] Jul 19, 2016 13:25
--- NOTE | 2016-07-19 13:37 | PN ---
DATE: 07/19/2016 SUBJECTIVE: The patient is alert, feels better, looks comfortable. No fevers. Vital signs stable. PHYSICAL EXAMINATION: GENERAL: Well-developed, middle-aged [place]-speaking man who is alert, in no distress. HEENT: Head atraumatic, normocephalic. Sclerae anicteric. Buccal mucosa pink. NECK: Supple, trachea midline. CHEST: Chest rise is symmetrical. Breath sounds diminished to the bases. HEART: S1, S2. ABDOMEN: Soft, bowel tones present. EXTREMITIES: No cyanosis or edema. ASSESSMENT: 1. Pneumonia, with persistent infiltrates despite antibiotics. 2. Renal insufficiency. 3. Diabetes. 4. History of tobacco abuse. PLAN: The patient remains stable, overall doing slightly better. He is on Levaquin and cefepime. Per discussion with Dr. Wynn, the patient can be discharged home on oral antibiotics for 7 days, and repeat a CT of the chest as an outpatient. Dictated By: BONNIE MONTILLA REPORTING SPECIALIST ashli CHRISTIAN/GABY Conf#: [id number] DID#: [id number]
[2016-07-19 14:53] LABS: AADO2 Arterial 62.7 mmHg (7.0-24.0); Allen Test ACCEPTAB; Arterial Base Excess 6.4 mmol/L (-3.0-3); Arterial COHb 0.7 % (0.0-3.0); Arterial Fraction of Oxyhgb 93.9 % (93.0-99.0); Arterial HCO3 31.9 mmol/L (22.0-26.0); Arterial MetHb 0.2 % (0.0-1.5); Arterial Total Hemglobin 13.7 g/dl (12.0-18.0); MODE NASAL CANNULA
--- NOTE | 2016-07-19 15:47 | PDOCDIS ---
Discharge Instructions CONDITION Patient Condition: Good HOME CARE INSTRUCTIONS: Special Diet: low carb/ cardiac ACTIVITY: Activity Restrictions: Slowly Increase Activity Rest between Activity FOLLOW UP/APPOINTMENTS Appointments Follow up with primary care physician in 1 week Follow-up with plastic surgery technician in 1-2 weeks NARENDRA CHAWLA MD Jul 19, 2016 15:46
[2016-07-19] MEDS ORDERED: LANT3I SC (15:53)
[2016-07-19] MEDS ORDERED: NOVO3I SC (15:53)
[2016-07-19] MEDS ORDERED: CARV12.579 PO (15:53)
[2016-07-19] MEDS ORDERED: UDROBAC PO (15:53)
[2016-07-19] MEDS ORDERED: ALPR0.254 PO (15:53)
[2016-07-19] MEDS ORDERED: MONT10TA24 PO (15:53)
[2016-07-19] MEDS ORDERED: LEVO500T72 PO (15:53)
[2016-07-19] MEDS ORDERED: OMEG1CAP55 PO (15:53)
[2016-07-19] MEDS ORDERED: ISOS20TA19 PO (15:53)
[2016-07-19] MEDS ORDERED: CEPH500C PO (15:53)
--- NOTE | 2016-07-19 18:04 | DS ---
DATE OF ADMISSION: 07/02/2016 DATE OF DISCHARGE: 07/19/2016 CONSULTANTS: 1. Dr. Javier Jeff. 2. Dr. Chivo Wynn. 3. Dr. Howie Beltran. 4. Dr. Azam Hernandez. DISCHARGE DIAGNOSES: 1. Right upper lobe pneumonia, Legionella pneumonia. The patient is status post Rocephin, azithrom ycin and vancomycin. Will discharge on Keflex and Levaquin. 2. Chronic obstructive pulmonary disease exacerbation with bronchospasm, improved. 3. Sepsis and pneumonia, resolved. 4. Acute renal insufficiency, improved. 5. Essential hypertension, stable. 6. Ischemic cardiomyopathy. Continue beta hugo, unable to use DAMON because of worsening renal fu nction. 7. Coronary artery disease. Continue aspirin, statin, beta hugo and nitrate. Hold Plavix secon dana to upcoming procedure. 8. Congestive heart failure exacerbation. Continue Coreg, Imdur and aspirin. 9. Diabetes mellitus type 2, hemoglobin A1c was 9.8, on Lantus and premeal insulin. 10. Dyslipidemia on Lipitor. 11. Hepatomegaly and transaminitis. Continue to monitor. 12. History of nicotine abuse. Cessation is advised. MEDICATIONS: 1. Robitussin-AC. 2. Percocet. 3. . 4. Carvedilol. 5. Insulin aspart. 6. Lantus. 7. Isosorbide dinitrate. 8. Levaquin. 9. Fish oil. 10. Singular. 11. Keflex. 12. Combivent. ALLERGIES: NO KNOWN DRUG ALLERGIES. Patient was discharged home on home oxygen. LABORATORY DATA: WBC 7.7, hemoglobin 12.5, hematocrit 38, platelets 124. Sodium 141, potassium 4.2 , chloride 102, bicarbonate 32, BUN 31, creatinine 1.41, glucose 95, calcium 8.5. HOSPITAL COURSE: This is a 55-year-old gentleman with past medical history of morbid obesity, diabe nic mellitus type 2, systolic and diastolic congestive heart failure, renal insufficiency, COPD, Leg ionella pneumonia, hypertension, dyslipidemia, who presented to [facility] ry to having 2 days of cold symptoms including a productive cough, fever, headache, progressive shor tness of breath. His blood pressure was found to be 193/84, pulse 99. Chest x-ray showed new acute pneumonia. CBC 13,000. Lactic acid was normal. BMP showed sodium 130, potassium 5.2, BUN 52, cre atinine 1.65, glucose 393. Infectious disease and zipper cutter were consulted. Nephrology was con sulted. The patient was placed on broad-spectrum IV antibiotics. Liver ultrasound was obtained bec ause patient was found to have transaminitis, it showed mild hepatomegaly and mild nonspecific coars ening of the liver echotexture, no focal liver lesion demonstrated, biliary system was not dilated. The patient had a CT of the chest which showed moderate centrilobular emphysema and smoking-related airway disease, chronic bronchitis, interval development of right upper lobe consolidation with par apneumonic effusion consistent with pneumonia, mild cardiomegaly, aortic and coronary atherosclerosi s, status post cholecystectomy. Interventional radiology was consulted for biopsy. The patient was set for CT-guided biopsy of the right upper lobe consolidation, although secondary to the patient b eing on Plavix, the biopsy was deferred and as per interventional radiology recommendation, the kendal ent should be off Plavix x7 days. The patient's breathing status has improved significantly. He is on home oxygen at 3 liters, which has remained at this time. He has been able to tolerate oral int eliazar. His creatinine has been improving since admission. Nephrology was consulted. At this time, leandro mota will be discharged home as per zipper cutter and infectious disease doctor recommendation. T he Plavix will be placed on hold x1 week, instruction has been given. The patient will need to get another x-ray in 1 week. In case the x-ray continues to demonstrate right upper lobe pneumonia or c onsolidation, the patient will need to obtain the biopsy of the consolidation to rule out any type o f cancer or culture. Although if there is improvement in the consolidation, the patient should rest art his Plavix and continue the medical management. Regarding his hypertension, his blood pressure is well controlled on Coreg and isosorbide. Regardi ng diabetes mellitus, his hemoglobin A1c was found to be elevated; therefore, his Lantus has been re adjusted. He has been placed on low carb diet. Regarding his coronary artery disease, he has been continued on Lipitor, aspirin and beta hugo. At this time, as stated above, the patient's Plavix will be placed on hold secondary to upcoming biopsy. RECOMMENDATIONS: 1. Follow up with primary care physician in 1 week for evaluation of chest x-ray and possible CT-gu ided biopsy of the right upper chest consolidation. 2. Follow up with primary care physician as outpatient for blood pressure and glucose monitoring. 3. Follow up with up zipper cutter as outpatient. DIET: Low carb cardiac diet. ACTIVITY: As tolerated. CONDITION AT TIME OF DISCHARGE: Stable. Dictated By: NARENDRA PORTILLO/GABY Conf#: [id number] DID#: [id number]
== END 2016-07-19 19:37 | disposition home or self-care (01) | DRG 871 ==
LOC: E/R 07:58 → PP2 09:58 → ICU 07-04 06:20 → MS4 07-04 15:51
PROVIDERS: ADMIT Family Medicine; ATTEND Family Medicine
DX: A41.9 Sepsis, unspecified organism (principal); A48.1 Legionnaires' disease; J96.20 Acute and chronic respiratory failure, unspecified whether with hypoxia or hypercapnia; I50.23 Acute on chronic systolic (congestive) heart failure; J15.29 Pneumonia due to other staphylococcus; N17.9 Acute kidney failure, unspecified; E87.1 Hypo-osmolality and hyponatremia; R16.0 Hepatomegaly, not elsewhere classified; I13.0 Hypertensive heart and chronic kidney disease with heart failure and stage 1 through stage 4 chronic kidney disease, or unspecified chronic kidney disease; N18.3 Chronic kidney disease, stage 3 (moderate); J44.1 Chronic obstructive pulmonary disease with (acute) exacerbation; E87.5 Hyperkalemia; Z95.5 Presence of coronary angioplasty implant and graft; I25.2 Old myocardial infarction; Z87.891 Personal history of nicotine dependence; E78.5 Hyperlipidemia, unspecified; E66.9 Obesity, unspecified; Z68.35 Body mass index [BMI] 35.0-35.9, adult; R65.20 Severe sepsis without septic shock; E11.65 Type 2 diabetes mellitus with hyperglycemia; J43.9 Emphysema, unspecified; I25.5 Ischemic cardiomyopathy; Z79.02 Long term (current) use of antithrombotics/antiplatelets
CPT/HCPCS: 36415; 36600; 71010; 71250; 76705; 80048; 80053; 80061; 80076; 80202; 81001; 81003; 82550; 82553; 82728; 82803; 82947; 82962; 83036; 83540; 83605; 83735; 83930; 83935; 84100; 84300; 84443; 84484; 85025; 85610; 85730; 87040; 87045; 87070; 87075; 87081; 87086; 87400; 87449; 92526; 92610; 93005; 94640; 94664; 96365; 96375; 97001; 97110; 97116; 97530; J1940; J0360; J0456; J0692; J0696; J1170; J1815; J1956; J2270; J2405; J2920; J3370; J3475; J7030; J7040; J7050; J7512

== ENCOUNTER 2016-08-17 18:08 | Emergency (ER) | payer SELFPAY ==
[~2016-08-17] VITALS: Wt 111.5 kg
[~2016-08-17 18:08] MED LIST changes: +ALPR0.254 PO; -ASP81 PO; +ASPI81TA3 PO; +CEPH500C PO; -CLOP75TA27 PO; -HYDR-3670 PO; -HYDR-906 PO; +LEVO500T72 PO; -LISI10TA2 PO; -MED4DP PO; +MONT10TA24 PO; +OMEG1CAP55 PO; +UDROBAC PO
== END 2016-08-17 23:59 | disposition left against medical advice (07) ==
LOC: E/R 18:08
DX: Z53.21 Procedure and treatment not carried out due to patient leaving prior to being seen by health care provider (principal)

== ENCOUNTER 2017-02-12 20:42 | Inpatient (IN) | END 2017-02-13 19:15 | disposition home or self-care (01) | DRG 596 | DX: B02.9 Zoster without complications (principal); E11.22 Type 2 diabetes mellitus with diabetic chronic kidney disease; N20.0 Calculus of kidney; E66.01 Morbid (severe) obesity due to excess calories; Z68.37 Body mass index [BMI] 37.0-37.9, adult; J44.9 Chronic obstructive pulmonary disease, unspecified; I12.9 Hypertensive chronic kidney disease with stage 1 through stage 4 chronic kidney disease, or unspecified chronic kidney disease; N18.9 Chronic kidney disease, unspecified; Z79.4 Long term (current) use of insulin; K31.89 Other diseases of stomach and duodenum ==

== ENCOUNTER 2018-09-09 14:48 | Inpatient (IN) | payer OTHER ==
[~2018-09-09] VITALS: Ht 175.3 cm; Wt 116.9 kg
[~2018-09-09 14:48] MED LIST changes: +ACYC800T PO; +ASPI-831 PO; -ASPI81TA3 PO; +ATOR-2 PO; -ATOR80TA75 PO; +CODE5LIQ2 PO; +HYDR-3670 PO; +LEVO500T48 PO; -LEVO500T72 PO; +OMEG-157 PO; -OMEG1CAP55 PO; +TRAM50TA2 PO; -UDROBAC PO; +VALP250C PO
--- NOTE | 2018-09-09 17:51 | ERD ---
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 HPI 57-year-old male, is due of hypertension, diabetes mellitus type 2, dyslipidemia, coronary artery disease status post multiple PCI's, stable angina, ischemic cardiomyopathy with EF of 45%, chronic kidney disease and emphysema ambulatory to the ED for evaluation of 1 day history of generalized body aches and malaise. Mild, shortness of breath and generalized, nonradiating chest pain which is exacerbated by nonproductive cough. Denies abdominal pain, nausea, vomiting, diarrhea or constipation. No leg pain or swelling. No relieving or exacerbating factors. Denies headache, visual changes, focal weakness or numbness. No neck or back pain. Subjective fevers but no chills. ROS All systems reviewed and are negative except as per history of present illness. Medications Home Meds Active Scripts Valproic Acid* (Depakene*) 250 Mg Capsule, 250 MG PO BID for 14 Days, CAP Prov:BRANDON WHITNEY 02/13/17 Tramadol HCl (Tramadol HCl) 50 Mg Tablet, 100 MG PO Q6 PRN for PAIN, #30 TAB Prov:BRANDON WHITNEY 02/13/17 Acyclovir* (Acyclovir*) 800 Mg Tablet, 800 MG PO 5 TIMES DAILY for 7 Days, TAB Prov:BRANDON WHITNEY 02/13/17 Montelukast Sodium* (Montelukast Sodium*) 10 Mg Tablet, 10 MG PO HS, #30 TAB Prov:NARENDRA CHAWLA MD 07/19/16 Wells-3/Dha/Epa/Fish Oil (FISH OIL EC 1,000 MG SOFTGEL) 1 Each Capsule.dr, 2000 MG PO BID, #60 Prov:NARENDRA CHAWLA MD 07/19/16 Isosorbide Dinitrate* (Isosorbide Dinitrate*) 20 Mg Tablet, 20 MG PO TID, #90 TAB Prov:NARENDRA CHAWLA MD 07/19/16 Insulin Glargine* (Lantus*) 100 Unit/Ml Soln, 43 UNIT SC HS for 30 Days Prov:NARENDRA CHAWLA MD 07/19/16 Insulin Aspart* (Novolog Insulin Pen*) 100 Unit/Ml Soln, 15 UNIT SC AC MEALS for 30 Days Prov:NARENDRA CHAWLA MD 1/5/17 Alprazolam* (Alprazolam*) 0.25 Mg Tablet, 0.5 MG PO TID PRN for ANXIETY, #20 TAB Prov:NARENDRA CHAWLA MD 07/19/16 Carvedilol* (Carvedilol*) 12.5 Mg Tablet, 6.25 MG PO BID for 30 Days, #60 TAB Prov:NARENDRA CHAWLA MD 07/19/16 Furosemide (Lasix) 40 Mg Tab, 40 MG PO DAILY for 30 Days, TAB Prov:JESE MCCOY 03/26/16 Gabapentin* (Gabapentin*) 300 Mg Capsule, 300 MG PO TID for 30 Days, CAP Prov:JESE MCCOY 03/26/16 Atorvastatin* (Atorvastatin*) 80 Mg Tablet, 80 MG PO HS for 30 Days, TAB Prov:JESE MCCOY 03/26/16 Aspirin (Aspirin) 81 Mg Chew, 81 MG PO DAILY, #30 TAB 12 Refills Prov:JESE MCCOY 03/26/16 Reported Medications Hydralazine Hcl* (Hydralazine Hcl*) 10 Mg Tablet, 10 MG PO Q12, #120 TAB 02/13/17 Ranolazine* (Ranexa*) 1,000 Mg Tab.sr.12h, 1000 MG PO Q12, TAB 06/08/16 Discontinued Scripts Cephalexin* (Cephalexin*) 500 Mg Capsule, 500 MG PO Q8, #21 CAP Prov:NARENDRA CHAWLA MD 07/19/16 Levofloxacin* (Levaquin*) 500 Mg Tablet, 500 MG PO DAILY@06, #10 TAB Prov:NARENDRA CHAWLA MD 07/19/16 Guaifenesin-Codeine Phosphate* (Robitussin* AC) 5 Ml Syrup, 5 ML PO Q6H PRN for COUGH, #100 Prov:NARENDRA CHAWLA MD 07/19/16 Allergies Allergies: Coded Allergies: No Known Allergy (Unverified , 07/11/16) PMhx/Soc Reviewed in chart. As per HPI. History of Surgery: Yes (lithotripsy, cholecystectomy, 13 stent placements, ) Anesthesia Reaction: No Hx 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 Disorder: Yes (neuropathy) Hx Respiratory Disorders: Yes (pneumonia, sob) Hx Cardiac Disorders: Yes (htn, hx of mi) Hx Psychiatric Problems: No Hx Miscellaneous Medical Probl: Yes (high cholesterol ) Hx Alcohol Use: No Hx Substance Use: No Hx Tobacco Use: Yes FmHx Parents and multiple close relatives with coronary artery disease. No family history of stroke or cancer. Physical Exam Vitals Temperature: 99.9. Pulse: 104. Respirations: 22. Blood pressure: 158/81. O2 saturation 99% on 2 L by nasal cannula. Physical Exam Const: Moderate distress. Head: Atraumatic Eyes: Normal Conjunctiva ENT: Normal External Ears, Nose and Mouth. Pharynx is clear. Mucous membranes are moist. Neck: Full range of motion. No meningismus. Resp: Breath sounds markedly diminished bilaterally with mild expiratory wheezing and crackles of the right greater than left base. Cardio: Tachycardic. Regular rate and rhythm, no murmurs Abd: Soft, obese, non tender, non distended. No rebound or guarding. Normal bowel sounds Skin: No petechiae or rashes Back: No midline or flank tenderness Ext: 1+ pretibial edema. No calf erythema or tenderness. Neur: Awake and alert. Cranial 2 through 12 are grossly intact. No focal deficit observed. Psych: Normal Mood and Affect Result Diagram: 09/15/18 0545 09/15/18 0545 Results 24 hrs Laboratory Tests Test 09/09/18 18:08 09/09/18 18:20 09/09/18 19:29 09/09/18 20:42 POC Venous 1.6 mmol/L 1.9 mmol/L Lactate White Blood Count 13.7 10^3/ul Red Blood Count 5.41 10^6/ul Hemoglobin 13.3 g/dl Hematocrit 41.8 % Mean Corpuscular 77.3 fl Volume Mean Corpuscular 24.6 pg Hemoglobin Mean Corpuscular 31.8 g/dl Hemoglobin Concen t Red Cell 15.8 % Distribution Width Platelet Count 180 10^3/UL Mean Platelet 10.7 fl Volume Immature 0.700 % Granulocytes % Neutrophils % 85.0 % Lymphocytes % 8.4 % Monocytes % 5.5 % Eosinophils % 0.1 % Basophils % 0.3 % Nucleated Red 0.0 /100WBC Blood Cells % Immature 0.090 10^3/ul Granulocytes # Neutrophils # 11.7 10^3/ul Lymphocytes # 1.2 10^3/ul Monocytes # 0.8 10^3/ul Eosinophils # 0.0 10^3/ul Basophils # 0.0 10^3/ul Nucleated Red 0.0 10^3/ul Blood Cells # Prothrombin Time 12.3 Sec Prothrombin Time 1.0 Ratio INR International 0.90 Normalized Ratio Activated 27.6 Sec Partial Thrombopl ast Time Sodium Level 137 mmol/L Potassium Level 4.6 mmol/L Chloride Level 104 mmol/L Carbon Dioxide 22 mmol/L Level Anion Gap 11 Blood Urea 38 mg/dl Nitrogen Creatinine 1.31 mg/dl Est Glomerular 56 mL/min Filtrat Rate mL/min Glucose Level 356 mg/dl Calcium Level 9.7 mg/dl Total Bilirubin 0.2 mg/dl Direct Bilirubin 0.00 mg/dl Indirect 0.2 mg/dl Bilirubin Aspartate Amino 59 IU/L Transf (AST/SGOT) Alanine 40 IU/L Aminotransferase (ALT/SGPT) Alkaline 183 IU/L Phosphatase Troponin I 0.018 ng/ml B-Type 2490 PG/ML Natriuretic Peptide Total Protein 7.0 g/dl Albumin 3.8 g/dl Globulin 3.20 g/dl Albumin/Globulin 1.18 Ratio Bedside Glucose 352 mg/dL Test 09/09/18 21:10 Urine Color YELLOW Urine Clarity SLIGHTLY CLOUDY Urine pH 5.0 Urine Specific 1.013 [place] Urine Ketones NEGATIVE mg/dL Urine Nitrite NEGATIVE mg/dL Urine Bilirubin NEGATIVE mg/dL Urine NEGATIVE mg/dL Urobilinogen Urine Leukocyte NEGATIVE Sona/ul Esterase Urine Microscopic 11 /HPF RBC Urine Microscopic 2 /HPF WBC Urine Amorphous FEW /HPF Crystals Urine Bacteria FEW /HPF Urine Hyaline FEW /HPF Casts Urine Hemoglobin 2+ mg/dL Urine Glucose 1+ mg/dL Urine Total 2+ mg/dl Protein Current Medications Medications Dose Sig/Ca Start Time Status Last (Trade) Ordered Route PRN Stop Time Admin Dose Reason Admin 650 mg ONCE STAT 09/09/18 DC 09/09/18 Acetaminophen PO 18:08 18:23 (Tylenol 09/09/18 18:10 Tab) Sodium 2,120 ml BOLUS OVER 2 09/09/18 DC 09/09/18 Chloride HOURS STAT 18:08 18:23 (NS) IV* 09/09/18 18:10 Cefepime HCl 50 ml @ ONCE STAT 09/09/18 DC 09/09/18 100 mls/hr IVPB 18:08 18:22 09/09/18 18:37 Vancomycin 250 ml @ ONCE ONCE 09/09/18 DC 09/09/18 HCl 125 mls/hr IVPB 18:30 19:06 09/09/18 20:29 Albuterol 10 mg ONCE STAT 09/09/18 DC 09/09/18 (Proventil INH 18:50 19:37 0.5% (Neb)) 09/09/18 18:51 Furosemide 40 mg ONCE ONCE 09/09/18 DC 09/09/18 (Lasix) IV 19:00 19:00 09/09/18 19:01 Procedures/MDM DOCUMENTS REVIEWED: ED nurse, prior ED, prior records LAB INTERPRETATION: CBC reveals leukocytosis and mild anemia but no thrombocytopenia. Chemistry is significant for hyperglycemia and elevated BUN/creatinine consistent with acute kidney injury. Urinalysis shows microscopic hematuria but no signs of acute infectious process a culture is pending. EKG: Time: 14:51. Sinus tachycardia. Ventricular rate 105. Normal OK and QRS. No acute ST segment elevation or depression. No ectopy. My Interpretation IMAGING: PROCEDURE: Chest x-ray CLINICAL INDICATION: Sepsis TECHNIQUE: Chest single view COMPARISON: 02/12/2017 FINDINGS: There is stable mild cardiomegaly. Increased bilateral interstitial markings are seen which may represent interstitial edema versus interstitial pneumonia. No confluent consolidation seen. Costophrenic angles are sharp. IMPRESSION: 1. Stable mild cardiomegaly. 2. Increased bilateral interstitial markings may represent interstitial edema versus interstitial pneumonia RPTAT: HH .Pancho Harris MD, MD Date Time Electronically viewed and signed by .Pancho Harris MD, MD on 09/09/2018 18:48 .W/ ED COURSE: Time:18:10. Tympanic temperature: 102.6F [employer]-year-old male, is due of hypertension, diabetes mellitus type 2, dyslipidemia, coronary artery disease status post multiple PCI's, stable angina, ischemic cardiomyopathy with EF of 45%, chronic kidney disease and emphysema ambulatory to the ED with multiple complaints. Patient, with an extensive history of coronary artery disease and presence of over 13 stents, complained of chest pain. No acute ischemic EKG changes or elevated troponin. Chest x-rays of bilateral lower interstitial infiltrates consistent with pneumonia versus congestive heart failure. No radiographic evidence of pneumonia or pneumothorax. Pulmonary embolism is unlikely and CT scan is deferred. Multiple criteria for systemic inflammatory response syndrome and sepsis likely secondary to pneumonia. Influenza A/B is negative. Elevated BUN/creatinine consistent with acute kidney injury likely secondary to ATN. Patient's infectious symptoms have not stabilized and the patient is at risk of rapid decompensation. The patient will be admitted for careful hydration, antibiotic therapy, infectious source control, Further evaluation and management. Severe Sepsis criteria: Infectious source: Pneumonia Sepsis Management: Time of recognition of severe sepsis: 23:37 Within 3 hours of recognition: Blood cultures x 2 before broad-spectrum antibiotics: Yes 30 ml/kg NS bolus based on ideal body weight in this patient with a BMI greater than 30: Completed Initial lactate 1.5 mmol/L Repeat lactate 1.9 mmol/L Repeat lactate 2.1 mmol/L Septic Shock Assessment: Any lactic acid > 4.0 no Persistent hypotension (SBP < 90 or 40 mmHg drop, MAP < 65) despite 30 mL/kg IV fluid bolus no Persistent Hypotension Treatment: Comfort care no Hypotension caused by: pt. baseline, med-induced, erroneous value, condition other than infection no Refusal by patient/decision maker for: blood draw, IVF, Antibiotics, Pressors no Central line not indicated Vasopressor started Critical Care Time: 35 minutes Treatments/Evaluations: Close monitoring and treatment of unstable vital signs, cardiorespiratory, and neurologic status, while maintaining tight balance of fluid, respiratory, and cardiac interventions. This includes the administration of emergency fluid management while maintaining close respiratory support as well as the provision of immediate and broad-spectrum antibiotic therapy, while performing a simultaneous assessment for possible sources in order to direct targeted therapy. This time includes discussing the case with the patient and the patient's family. This time also includes the consideration for invasive and chemical support to prevent cardiopulmonary collapse. This time does not include all procedures stated elsewhere in this record. This time also includes reviewing old records, labs and radiological studies. This time includes examining and re-examining the patient. Additionally, this time also includes arranging care with admitting and consulting physicians. PATIENT CARE TRANSITIONED: Time: 20:19, Dr. Queen. Counseled patient and family regarding diagnosis, diagnostic results and plan for admission. Departure Diagnosis: Primary Impression: Chest pain Chest pain type: unspecified Qualified Codes: R07.9 - Chest pain, unspecified Additional Impressions: CHF (congestive heart failure) Heart failure type: systolic Heart failure chronicity: acute on chronic Qualified Codes: I50.23 - Acute on chronic systolic (congestive) heart failure SIRS (systemic inflammatory response syndrome) Sepsis Sepsis type: sepsis due to unspecified organism Qualified Codes: A41.9 - Sepsis, unspecified organism CAD S/P percutaneous coronary angioplasty SHERYL (acute kidney injury) Condition: Serious CHARAN VAZQUEZ MD Sep 09, 2018 17:51
[2018-09-09] MEDS ORDERED: SODIUM CHLORIDE 0.9% 1L BAG IV* STA (18:08)
[2018-09-09] MEDS ORDERED: CEFEPIME 2GM/50 ML (PMX) 50 ML IVPB STA (18:08)
[2018-09-09] MEDS ORDERED: ACETAMINOPHEN 325 MG TAB PO STA (18:08)
[2018-09-09] MEDS ORDERED: VANCOMYCIN 1 GM (PMX) 250 ML IVPB ONE (18:30)
[2018-09-09] MEDS ORDERED: ALBUTEROL 0.5% (NEB) 2.5 MG/0.5 ML AMP INH STA (18:50)
[2018-09-09] MEDS ORDERED: FUROSEMIDE 40 MG INJ IV ONE (19:00)
[2018-09-09] MEDS ORDERED: ACETAMINOPHEN 325 MG TAB PO PRN (21:30)
[2018-09-09] MEDS ORDERED: ONDANSETRON 4 MG INJ IV PRN (21:30)
[2018-09-09 22:39] VITALS: PULSE 98
[2018-09-09 22:57] VITALS: Ht 175.3 cm; Wt 116.9 kg
[2018-09-10] VITALS (11 sets, daily range): BP systolic 90–125; BP diastolic 51–62; PULSE 60–88; RESP 18
[2018-09-10] MEDS ORDERED: morphine 4 MG/ML VIAL IV STA (01:34)
[2018-09-10] MEDS ORDERED: ACETAMINOPHEN 325 MG TAB PO PRN (05:00)
[2018-09-10] MEDS ORDERED: NITROGLYCERIN (SL) 0.4 MG TAB SL PRN (05:00)
[2018-09-10] MEDS ORDERED: ONDANSETRON 4 MG INJ IV PRN (05:00)
[2018-09-10] MEDS ORDERED: ALBUTEROL/IPRATROPIUM (NEB) 3 ML AMP HHN PRN (05:00)
[2018-09-10] MEDS ORDERED: ALPRAZOLAM 0.25 MG TAB PO PRN (05:00)
[2018-09-10] MEDS ORDERED: NACL 0.9% 3 ML SYG IV SCH (05:00)
--- NOTE | 2018-09-10 05:24 | HP ---
Date/Time of Note Date/Time of Note DATE: 09/10/18 TIME: 05:19 Assessment/Plan VTE Prophylaxis Pharmacological prophylaxis: heparin Lines/Catheters IV Catheter Type (from Nrs): Saline Lock Urinary Cath still in place: No Assessment/Plan Assessment/Plan 1. Sepsis, as evidenced by leukocytosis and fever: Most likely secondary to community-acquired pneumonia, and likely left lower extremity cellulitis -IV antibiotic, IV fluid -Trend lactate -Follow-up culture results 2. Shortness of breath and intermittent chest pain: Likely secondary to pneumonia. We will however rule out ACS 3. Type 1 diabetes with hyperglycemia: Continue insulin. Adjust as needed 4. Hypertension: Continue home meds 5. CKD: Consider nephrology consult 6. Ischemic cardiomyopathy (EF 45% in 2016): Continue home meds 7. Dyslipidemia: Continue statin 8. Left inguinal lymphadenopathy and tenderness: We will order pelvic CT Result Diagram: 09/09/18 1820 09/09/18 1820 Results 24hrs Laboratory Tests Test 09/09/18 18:08 09/09/18 18:20 09/09/18 19:29 09/09/18 20:42 POC Venous 1.6 1.9 Lactate White Blood Count 13.7 #H Red Blood Count 5.41 Hemoglobin 13.3 L Hematocrit 41.8 L Mean Corpuscular 77.3 L Volume Mean Corpuscular 24.6 L Hemoglobin Mean Corpuscular 31.8 L Hemoglobin Concen t Red Cell 15.8 H Distribution Width Platelet Count 180 # Mean Platelet 10.7 H Volume Immature 0.700 H Granulocytes % Neutrophils % 85.0 H Lymphocytes % 8.4 L Monocytes % 5.5 Eosinophils % 0.1 Basophils % 0.3 Nucleated Red 0.0 Blood Cells % Immature 0.090 H Granulocytes # Neutrophils # 11.7 H Lymphocytes # 1.2 Monocytes # 0.8 Eosinophils # 0.0 Basophils # 0.0 Nucleated Red 0.0 Blood Cells # Prothrombin Time 12.3 Prothrombin Time 1.0 Ratio INR International 0.90 Normalized Ratio Activated 27.6 Partial Thrombopl ast Time Sodium Level 137 Potassium Level 4.6 Chloride Level 104 Carbon Dioxide 22 Level Anion Gap 11 Blood Urea 38 H Nitrogen Creatinine 1.31 H Est Glomerular 56 L Filtrat Rate mL/min Glucose Level 356 H Calcium Level 9.7 Total Bilirubin 0.2 Direct Bilirubin 0.00 Indirect 0.2 Bilirubin Aspartate Amino 59 H Transf (AST/SGOT) Alanine 40 Aminotransferase (ALT/SGPT) Alkaline 183 H Phosphatase Troponin I 0.018 B-Type 2490 H Natriuretic Peptide Total Protein 7.0 Albumin 3.8 Globulin 3.20 Albumin/Globulin 1.18 Ratio Bedside Glucose 352 H Test 09/09/18 21:10 09/09/18 23:37 Urine Color YELLOW Urine Clarity SLIGHTLY CLOUDY A Urine pH 5.0 Urine Specific 1.013 [place] Urine Ketones NEGATIVE Urine Nitrite NEGATIVE Urine Bilirubin NEGATIVE Urine NEGATIVE Urobilinogen Urine Leukocyte NEGATIVE Esterase Urine Microscopic 11 H RBC Urine Microscopic 2 WBC Urine Amorphous FEW A Crystals Urine Bacteria FEW A Urine Hyaline FEW A Casts Urine Hemoglobin 2+ H Urine Glucose 1+ H Urine Total 2+ H Protein Lactic Acid Level 2.1 *H HPI/ROS Admit Date/Time Admit Date/Time Sep 09, 2018 at 21:23 Hx of Present Illness This is a 57-year-old male with a history of hypertension, type 1 diabetes, dyslipidemia, anxiety, COPD, CKD, ischemic cardiomyopathy (EF 45% 2015). Patient presented to ER complaining of fever/chills, shortness of breath, generalized body ache. He also reported occasional chest pain for which she said nitro usually helps. On further questioning, he complains of pain in the left inguinal area. On physical examination, there are palpable lymph nodes and is tender to touch. He also has some erythema of the left lower extremity. When presented to ER, patient was afebrile however later on became febrile with a temperature as high as 102.6. Chest x-ray shows Increased bilateral interstitial markings may represent interstitial edema versus interstitial pneumonia. WBC almost 14,000, creatinine 1.31, glucose 356, lactate 2.1, BNP 2500, hemoglobin 13.3 with MCV of 77. PMH/Family/Social Past Medical History Medical History: other (See HPI) Medications Current Medications Influenza Virus Vaccine Quadrival (Fluzone) 0.5 ml ONCE ONCE IM* ; Start 09/11/18 at 10:00; Stop 09/11/18 at 10:01 IV Flush (NS 3 ml) 3 ml PER PROTOCOL IV ; Start 09/10/18 at 05:00 Ondansetron HCl (Zofran Inj) 4 mg Q6H PRN IV NAUSEA/VOMITING; Start 09/10/18 at 05:00 Nitroglycerin (Nitroglycerin (Sl Tab) 0.4 Mg) 1 tab Q5M PRN SL .CHEST PAIN; Start 09/10/18 at 05:00 Acetaminophen (Tylenol Tab) 650 mg Q6H PRN PO .PAIN 1-3 OR TEMP; Start 09/10/18 at 05:00 Heparin Sodium (Porcine) (Heparin (5000 Units/1ml)) 5,000 unit Q12 SC ; Start 09/10/18 at 09:00 Albuterol/ Ipratropium (Duoneb) 3 ml Q2H RESP THERAPY PRN HHN SHORTNESS OF BREATH; Start 09/10/18 at 05:00 Alprazolam (Xanax) 0.5 mg TID PRN PO ANXIETY; Start 09/10/18 at 05:00 Aspirin (Aspirin) 81 mg DAILY PO ; Start 09/10/18 at 09:00 Atorvastatin Calcium (Lipitor) 80 mg HS PO ; Start 09/10/18 at 21:00 Carvedilol (Coreg) 6.25 mg BID PO ; Start 09/10/18 at 09:00 Furosemide (Lasix) 40 mg DAILY PO ; Start 09/10/18 at 09:00 Gabapentin (Neurontin) 300 mg TID PO ; Start 09/10/18 at 09:00 Hydralazine HCl (Apresoline) 10 mg Q12 PO ; Start 09/10/18 at 09:00 Isosorbide Dinitrate (Isordil) 20 mg TID PO ; Start 09/10/18 at 09:00 Montelukast Sodium (Singulair) 10 mg HS PO ; Start 09/10/18 at 21:00 Ranolazine (Ranexa) 1,000 mg Q12 PO ; Start 09/10/18 at 09:00 Tramadol HCl (Ultram) 100 mg Q6 PRN PO PAIN; Start 09/10/18 at 05:00 Valproic Acid (Depakene) 250 mg BID PO ; Start 09/10/18 at 09:00 Fish Oil (Fish Oil) 2,000 mg BID PO ; Start 09/10/18 at 09:00 Coded Allergies: No Known Allergy (Unverified , 07/11/16) Past Surgical History Past Surgical Hx: cholecystectomy Family History Significant Family History: heart disease Social History Alcohol Use: none Smoking Status: Current every day smoker Drug Use: none Exam/Review of Systems Vital Signs Vitals Vital Signs Date Temp Pulse Resp B/P (MAP) Pulse Ox O2 O2 Flow FiO2 Time Delivery Rate 09/10/18 98.5 84 18 116/62 96 04:24 (80) 09/09/18 Nasal 2.0 22:57 Cannula Intake and Output 09/09/18 09/09/18 09/10/18 1515:00 23:00 07:00 IntakeIntake Total 300 ml BalanceBalance 300 ml Exam Lymph: other (Left inguinal lymphadenopathy and tenderness) DERIK LOVE MD Sep 10, 2018 05:24
[2018-09-10] MEDS ORDERED: DEXTROSE 50% 50 ML SYRINGE IV PRN ×2 (06:00)
[2018-09-10] MEDS ORDERED: GLUCOSE GEL 15 GRAM TUBE PO PRN ×2 (06:00)
[2018-09-10] MEDS ORDERED: GLUCAGON 1 MG INJ IM PRN (06:00)
[2018-09-10] MEDS ORDERED: GLUCOSE GEL 15 GRAM TUBE BUCCAL PRN (06:00)
[2018-09-10] MEDS: traMADol 50 MG TAB PO PRN ×2 (06:20→21:45)
[2018-09-10] MEDS ORDERED: INSULIN GLARGINE [LANTus] (100 UNITS/ML) SYG SC SCH (08:00)
[2018-09-10] MEDS: INSULIN ASPART [NOVOLOG] 3 ML PEN SC SCH ×7 (08:54→21:00)
[2018-09-10] MEDS: ISOSORBIDE DINITRATE 20 MG TAB PO SCH ×3 (08:56→21:00)
[2018-09-10] MEDS: RANOLAZINE (SR) 500 MG TAB PO SCH ×2 (08:56→21:43)
[2018-09-10] MEDS: GABAPENTIN 300 MG CAP PO SCH ×3 (08:57→21:44)
[2018-09-10] MEDS: VALPROIC ACID 250 MG CAP PO SCH ×2 (08:57→21:44)
[2018-09-10] MEDS: FISH OIL 1,000 MG CAP PO SCH ×2 (08:58→21:44)
[2018-09-10] MEDS: ASPIRIN 81 MG TAB PO SCH (08:59)
[2018-09-10] MEDS: FUROSEMIDE 40 MG TAB PO SCH (08:59)
--- NOTE | 2018-09-10 09:08 | CONS ---
Assessment/Plan Assessment/Plan Assessment/Plan (Daily) 1. acute kidney injury due to ATN From pneumonia 2. sepsis due to pneumonia 3. pneumonia, worried about community acquired PNA 4. h/o HTn 5. h/o Myocardial infarction 6. h/o Lithotripsy before for left kidney stone Plan: seen in tele floor Urine Na, urine protein/cr ration, urine eosinophils, CK total, Uric acid Renal US has been ordered to assess for CKd, to rule out hydronephrosis IV abx for PNA and sepiss, renally dose all abx and monitor electrolytes Thanks for consultation, I will continue to follow up Consultation Date/Type/Reason Admit Date/Time Sep 09, 2018 at 21:23 Date of Consultation: Sep 10, 2018 Type of Consult NEPHROLOGY Reason for Consultation Acute kidney injury Requesting Provider: DERIK LOVE MD Date/Time of Note DATE: 09/10/18 TIME: 09:08 Hx of Present Illness 57-year-old male with a history of hypertension, type 1 diabetes, dyslipidemia, anxiety, COPD, CKD, ischemic cardiomyopathy (EF 45% 2015). Patient presented to ER complaining of fever/chills, shortness of breath, generalized body ache. in ED patient was afebrile however later on became febrile with a temperature as high as 102.6. Chest x-ray shows Increased bilateral interstitial markings may represent interstitial edema versus interstitial pneumonia. WBC almost 14,000, creatinine 1.31, glucose 356, lactate 2.1, BNP 2500, hemoglobin 13.3 with MCV of 77. he gets admitted for sepsis due to pneumonia, and renal has been consulted for Acute kidney injury. no h/o CKD, no h/o kidney stones. Constitutional: chills, febrile, poor po Eyes: no complaints ENT: no complaints Respiratory: pleuritic pain, shortness of breath Cardiovascular: lightheadedness, orthopenea Gastrointestinal: no complaints Genitourinary: no complaints Musculoskeletal: no complaints Skin: no complaints Neurologic: no complaints Endocrine: no complaints Lymphatic: no complaints Psychological: no complaints Immunologic: no complaints Past Medical History Medical History: coronary artery disease, hypertension, other (anxiety ) Home Meds Active Scripts Valproic Acid* (Depakene*) 250 Mg Capsule, 250 MG PO BID for 14 Days, CAP Prov:BRANDON WHITNEY 02/13/17 Tramadol HCl (Tramadol HCl) 50 Mg Tablet, 100 MG PO Q6 PRN for PAIN, #30 TAB Prov:BRANDON WHITNEY 02/13/17 Acyclovir* (Acyclovir*) 800 Mg Tablet, 800 MG PO 5 TIMES DAILY for 7 Days, TAB Prov:BRANDON WHITNEY 02/13/17 Montelukast Sodium* (Montelukast Sodium*) 10 Mg Tablet, 10 MG PO HS, #30 TAB Prov:NARENDRA CHAWLA MD 07/19/16 [place]-3/Dha/Epa/Fish Oil (FISH OIL EC 1,000 MG SOFTGEL) 1 Each Capsule.dr, 2000 MG PO BID, #60 Prov:NARENDRA CHAWLA MD 07/19/16 Isosorbide Dinitrate* (Isosorbide Dinitrate*) 20 Mg Tablet, 20 MG PO TID, #90 TAB Prov:NARENDRA CHAWLA MD 07/19/16 Insulin Glargine* (Lantus*) 100 Unit/Ml Soln, 43 UNIT SC HS for 30 Days Prov:NARENDRA CHAWLA MD 07/19/16 Insulin Aspart* (Novolog Insulin Pen*) 100 Unit/Ml Soln, 15 UNIT SC AC MEALS for 30 Days Prov:NARENDRA CHAWLA MD 07/19/16 Alprazolam* (Alprazolam*) 0.25 Mg Tablet, 0.5 MG PO TID PRN for ANXIETY, #20 TAB Prov:NARENDRA CHAWLA MD 07/19/16 Carvedilol* (Carvedilol*) 12.5 Mg Tablet, 6.25 MG PO BID for 30 Days, #60 TAB Prov:NARENDRA CHAWLA MD 07/19/16 Furosemide (Lasix) 40 Mg Tab, 40 MG PO DAILY for 30 Days, TAB Prov:JESE MCCOY 03/26/16 Gabapentin* (Gabapentin*) 300 Mg Capsule, 300 MG PO TID for 30 Days, CAP Prov:JESE MCCOY 03/26/16 Atorvastatin* (Atorvastatin*) 80 Mg Tablet, 80 MG PO HS for 30 Days, TAB Prov:JESE MCCOY 03/26/16 Aspirin (Aspirin) 81 Mg Chew, 81 MG PO DAILY, #30 TAB 12 Refills Prov:JESE MCCOY 03/26/16 Reported Medications Hydralazine Hcl* (Hydralazine Hcl*) 10 Mg Tablet, 10 MG PO Q12, #120 TAB 02/13/17 Ranolazine* (Ranexa*) 1,000 Mg Tab.sr.12h, 1000 MG PO Q12, TAB 06/08/16 Discontinued Scripts Cephalexin* (Cephalexin*) 500 Mg Capsule, 500 MG PO Q8, #21 CAP Prov:NARENDRA CHAWLA MD 07/19/16 Levofloxacin* (Levaquin*) 500 Mg Tablet, 500 MG PO DAILY@06, #10 TAB Prov:NARENDRA CHAWLA MD 07/19/16 Guaifenesin-Codeine Phosphate* (Robitussin* AC) 5 Ml Syrup, 5 ML PO Q6H PRN for COUGH, #100 Prov:NARENDRA CHAWLA MD 07/19/16 Medications Current Medications Influenza Virus Vaccine Quadrival (Fluzone) 0.5 ml ONCE ONCE IM* ; Start 09/11/18 at 10:00; Stop 09/11/18 at 10:01 IV Flush (NS 3 ml) 3 ml PER PROTOCOL IV ; Start 09/10/18 at 05:00 Ondansetron HCl (Zofran Inj) 4 mg Q6H PRN IV NAUSEA/VOMITING; Start 09/10/18 at 05:00 Nitroglycerin (Nitroglycerin (Sl Tab) 0.4 Mg) 1 tab Q5M PRN SL .CHEST PAIN; Start 09/10/18 at 05:00 Acetaminophen (Tylenol Tab) 650 mg Q6H PRN PO .PAIN 1-3 OR TEMP; Start 09/10/18 at 05:00 Heparin Sodium (Porcine) (Heparin (5000 Units/1ml)) 5,000 unit Q12 SC ; Start 09/10/18 at 09:00 Albuterol/ Ipratropium (Duoneb) 3 ml Q2H RESP THERAPY PRN HHN SHORTNESS OF BREATH Last administered on 09/10/18at 08:40; Admin Dose 3 ML; Start 09/10/18 at 05:00 Alprazolam (Xanax) 0.5 mg TID PRN PO ANXIETY; Start 09/10/18 at 05:00 Aspirin (Aspirin) 81 mg DAILY PO ; Start 09/10/18 at 09:00 Atorvastatin Calcium (Lipitor) 80 mg HS PO ; Start 09/10/18 at 21:00 Carvedilol (Coreg) 6.25 mg BID PO ; Start 09/10/18 at 09:00 Furosemide (Lasix) 40 mg DAILY PO ; Start 09/10/18 at 09:00 Gabapentin (Neurontin) 300 mg TID PO ; Start 09/10/18 at 09:00 Hydralazine HCl (Apresoline) 10 mg Q12 PO ; Start 09/10/18 at 09:00 Isosorbide Dinitrate (Isordil) 20 mg TID PO ; Start 09/10/18 at 09:00 Montelukast Sodium (Singulair) 10 mg HS PO ; Start 09/10/18 at 21:00 Ranolazine (Ranexa) 1,000 mg Q12 PO ; Start 09/10/18 at 09:00 Tramadol HCl (Ultram) 100 mg Q6 PRN PO PAIN Last administered on 09/10/18at 06:20; Admin Dose 100 MG; Start 09/10/18 at 05:00 Valproic Acid (Depakene) 250 mg BID PO ; Start 09/10/18 at 09:00 Fish Oil (Fish Oil) 2,000 mg BID PO ; Start 09/10/18 at 09:00 Diagnostic Test (Pha) (Accu-Chek) 1 ea 02 XX ; Start 09/11/18 at 02:00 Insulin Glargine (Lantus) 29 units DAILY@0800 SC ; Start 09/10/18 at 08:00 Insulin Aspart (Novolog Insulin Pen) 8 unit WITH MEALS SC ; Start 09/10/18 at 07:55 Insulin Aspart (Novolog Insulin Pen) NOVOLOG *MODERATE* ALGORITHM WITH MEALS BEDTIME SC ; Start 09/10/18 at 07:55 Miscellaneous Information 1 ea NOTE XX ; Start 09/10/18 at 06:00 Glucose (Glutose) 15 gm Q15M PRN PO DECREASED GLUCOSE; Start 09/10/18 at 06:00 Glucose (Glutose) 22.5 gm Q15M PRN PO DECREASED GLUCOSE; Start 09/10/18 at 06:00 Dextrose (D50w Syringe) 25 ml Q15M PRN IV DECREASED GLUCOSE; Start 09/10/18 at 06:00 Dextrose (D50w Syringe) 50 ml Q15M PRN IV DECREASED GLUCOSE; Start 09/10/18 at 06:00 Glucagon (Glucagen) 1 mg Q15M PRN IM DECREASED GLUCOSE; Start 09/10/18 at 06:00 Glucose (Glutose) 15 gm Q15M PRN BUCCAL DECREASED GLUCOSE; Start 09/10/18 at 06:00 Allergies: Coded Allergies: No Known Allergy (Unverified , 07/11/16) Past Surgical History Past Surgical Hx: cholecystectomy, other (lithotripsy ) Family History Significant Family History: no pertinent family hx Social History Alcohol Use: none Smoking Status: Current every day smoker Drug Use: none Exam/Review of Systems Exam Vitals Vital Signs Date Temp Pulse Resp B/P (MAP) Pulse Ox O2 O2 Flow FiO2 Time Delivery Rate 09/10/18 97 18 97 Nasal 3.0 08:41 Cannula 09/10/18 98.5 116/62 04:24 (80) Intake and Output 09/09/18 09/09/18 09/10/18 1515:00 23:00 07:00 IntakeIntake Total 300 ml 650 ml OutputOutput Total 600 ml BalanceBalance 300 ml 50 ml Constitutional: alert Psych: no complaints Head: normocephalic Eyes: nl conjunctiva ENMT: nl external ears & nose Neck: supple, non-tender Respiratory: diminished breath sounds, other (RLL Crackles ) Cardiovascular: regular rate and rhythm Gastrointestinal: soft, non-tender Musculoskeletal: nl extremities to inspection Extremities: normal pulses 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: FINISH MOLDER II-XII intact, nl mental status, nl speech, nl strength Skin: nl turgor Lymph: nl lymph nodes Results Result Diagram: 09/10/18 0509 09/10/18 0509 Results 24hrs Laboratory Tests Test 09/09/18 18:08 09/09/18 18:20 09/09/18 19:29 09/09/18 20:42 POC Venous 1.6 1.9 Lactate White Blood Count 13.7 #H Red Blood Count 5.41 Hemoglobin 13.3 L Hematocrit 41.8 L Mean Corpuscular 77.3 L Volume Mean Corpuscular 24.6 L Hemoglobin Mean Corpuscular 31.8 L Hemoglobin Concen t Red Cell 15.8 H Distribution Width Platelet Count 180 # Mean Platelet 10.7 H Volume Immature 0.700 H Granulocytes % Neutrophils % 85.0 H Lymphocytes % 8.4 L Monocytes % 5.5 Eosinophils % 0.1 Basophils % 0.3 Nucleated Red 0.0 Blood Cells % Immature 0.090 H Granulocytes # Neutrophils # 11.7 H Lymphocytes # 1.2 Monocytes # 0.8 Eosinophils # 0.0 Basophils # 0.0 Nucleated Red 0.0 Blood Cells # Prothrombin Time 12.3 Prothrombin Time 1.0 Ratio INR International 0.90 Normalized Ratio Activated 27.6 Partial Thrombopl ast Time Sodium Level 137 Potassium Level 4.6 Chloride Level 104 Carbon Dioxide 22 Level Anion Gap 11 Blood Urea 38 H Nitrogen Creatinine 1.31 H Est Glomerular 56 L Filtrat Rate mL/min Glucose Level 356 H Calcium Level 9.7 Total Bilirubin 0.2 Direct Bilirubin 0.00 Indirect 0.2 Bilirubin Aspartate Amino 59 H Transf (AST/SGOT) Alanine 40 Aminotransferase (ALT/SGPT) Alkaline 183 H Phosphatase Troponin I 0.018 B-Type 2490 H Natriuretic Peptide Total Protein 7.0 Albumin 3.8 Globulin 3.20 Albumin/Globulin 1.18 Ratio Bedside Glucose 352 H Test 09/09/18 21:10 09/09/18 23:37 09/10/18 05:09 09/10/18 08:09 Urine Color YELLOW Urine Clarity SLIGHTLY CLOUDY A Urine pH 5.0 Urine Specific 1.013 [place] Urine Ketones NEGATIVE Urine Nitrite NEGATIVE Urine Bilirubin NEGATIVE Urine NEGATIVE Urobilinogen Urine Leukocyte NEGATIVE Esterase Urine Microscopic 11 H RBC Urine Microscopic 2 WBC Urine Amorphous FEW A Crystals Urine Bacteria FEW A Urine Hyaline FEW A Casts Urine Hemoglobin 2+ H Urine Glucose 1+ H Urine Total 2+ H Protein Lactic Acid Level 2.1 *H White Blood Count 14.5 H Red Blood Count 4.72 Hemoglobin 11.5 L Hematocrit 36.7 L Mean Corpuscular 77.8 L Volume Mean Corpuscular 24.4 L Hemoglobin Mean Corpuscular 31.3 L Hemoglobin Concen t Red Cell 16.1 H Distribution Width Platelet Count 172 Mean Platelet 11.5 H Volume Immature 1.000 H Granulocytes % Neutrophils % 81.9 H Lymphocytes % 11.5 L Monocytes % 5.3 Eosinophils % 0.0 Basophils % 0.3 Nucleated Red 0.0 Blood Cells % Immature 0.150 H Granulocytes # Neutrophils # 11.8 H Lymphocytes # 1.7 Monocytes # 0.8 Eosinophils # 0.0 Basophils # 0.1 Nucleated Red 0.0 Blood Cells # Sodium Level 136 Potassium Level 5.1 Chloride Level 100 Carbon Dioxide 26 Level Anion Gap 10 Blood Urea 42 H Nitrogen Creatinine 1.82 H Est Glomerular 38 L Filtrat Rate mL/min Glucose Level 330 H Hemoglobin A1c 11.8 H Calcium Level 8.7 Magnesium Level 1.9 Total Bilirubin Pending Direct Bilirubin Pending Indirect Pending Bilirubin Aspartate Amino 48 H Transf (AST/SGOT) Alanine 56 Aminotransferase (ALT/SGPT) Alkaline 138 H Phosphatase Creatine Kinase 59 Creatine Kinase 1.9 Index Creatinine Kinase 1.14 MB (Mass) Troponin I 0.037 Total Protein 6.1 Albumin 3.2 L Globulin 2.90 Albumin/Globulin 1.10 Ratio Triglycerides 167 H Level Cholesterol Level 147 LDL Cholesterol, 80 Calculated HDL Cholesterol 34 Cholesterol/HDL 4.3 Ratio Thyroid Pending Stimulating Hormone (TSH) Bedside Glucose 360 H Medications Medication Current Medications Influenza Virus Vaccine Quadrival (Fluzone) 0.5 ml ONCE ONCE IM* ; Start 09/11/18 at 10:00; Stop 09/11/18 at 10:01 IV Flush (NS 3 ml) 3 ml PER PROTOCOL IV ; Start 09/10/18 at 05:00 Ondansetron HCl (Zofran Inj) 4 mg Q6H PRN IV NAUSEA/VOMITING; Start 09/10/18 at 05:00 Nitroglycerin (Nitroglycerin (Sl Tab) 0.4 Mg) 1 tab Q5M PRN SL .CHEST PAIN; Start 09/10/18 at 05:00 Acetaminophen (Tylenol Tab) 650 mg Q6H PRN PO .PAIN 1-3 OR TEMP; Start 09/10/18 at 05:00 Heparin Sodium (Porcine) (Heparin (5000 Units/1ml)) 5,000 unit Q12 SC ; Start 09/10/18 at 09:00 Albuterol/ Ipratropium (Duoneb) 3 ml Q2H RESP THERAPY PRN HHN SHORTNESS OF BREATH Last administered on 09/10/18at 08:40; Admin Dose 3 ML; Start 09/10/18 at 05:00 Alprazolam (Xanax) 0.5 mg TID PRN PO ANXIETY; Start 09/10/18 at 05:00 Aspirin (Aspirin) 81 mg DAILY PO ; Start 09/10/18 at 09:00 Atorvastatin Calcium (Lipitor) 80 mg HS PO ; Start 09/10/18 at 21:00 Carvedilol (Coreg) 6.25 mg BID PO ; Start 09/10/18 at 09:00 Furosemide (Lasix) 40 mg DAILY PO ; Start 09/10/18 at 09:00 Gabapentin (Neurontin) 300 mg TID PO ; Start 09/10/18 at 09:00 Hydralazine HCl (Apresoline) 10 mg Q12 PO ; Start 09/10/18 at 09:00 Isosorbide Dinitrate (Isordil) 20 mg TID PO ; Start 09/10/18 at 09:00 Montelukast Sodium (Singulair) 10 mg HS PO ; Start 09/10/18 at 21:00 Ranolazine (Ranexa) 1,000 mg Q12 PO ; Start 09/10/18 at 09:00 Tramadol HCl (Ultram) 100 mg Q6 PRN PO PAIN Last administered on 09/10/18at 06:20; Admin Dose 100 MG; Start 09/10/18 at 05:00 Valproic Acid (Depakene) 250 mg BID PO ; Start 09/10/18 at 09:00 Fish Oil (Fish Oil) 2,000 mg BID PO ; Start 09/10/18 at 09:00 Diagnostic Test (Pha) (Accu-Chek) 1 ea 02 XX ; Start 09/11/18 at 02:00 Insulin Glargine (Lantus) 29 units DAILY@0800 SC ; Start 09/10/18 at 08:00 Insulin Aspart (Novolog Insulin Pen) 8 unit WITH MEALS SC ; Start 09/10/18 at 07:55 Insulin Aspart (Novolog Insulin Pen) NOVOLOG *MODERATE* ALGORITHM WITH MEALS BEDTIME SC ; Start 09/10/18 at 07:55 Miscellaneous Information 1 ea NOTE XX ; Start 09/10/18 at 06:00 Glucose (Glutose) 15 gm Q15M PRN PO DECREASED GLUCOSE; Start 09/10/18 at 06:00 Glucose (Glutose) 22.5 gm Q15M PRN PO DECREASED GLUCOSE; Start 09/10/18 at 06:00 Dextrose (D50w Syringe) 25 ml Q15M PRN IV DECREASED GLUCOSE; Start 09/10/18 at 06:00 Dextrose (D50w Syringe) 50 ml Q15M PRN IV DECREASED GLUCOSE; Start 09/10/18 at 06:00 Glucagon (Glucagen) 1 mg Q15M PRN IM DECREASED GLUCOSE; Start 09/10/18 at 06:00 Glucose (Glutose) 15 gm Q15M PRN BUCCAL DECREASED GLUCOSE; Start 09/10/18 at 06:00 ANDREW BOWLING MD Sep 10, 2018 09:08
[2018-09-10] MEDS: HEPARIN 5,000 UNIT/1 ML VIAL SC SCH ×2 (09:14→21:56)
[2018-09-10] MEDS ORDERED: VANCOMYCIN IV PER PHARMACY XX SCH (09:30)
[2018-09-10] MEDS ORDERED: VANCOMYCIN HCL 2 GM in SOD CHLORIDE 0.9% 500 ML IVPB ONE (11:00)
--- NOTE | 2018-09-10 15:33 | PN ---
Date/Time of Note Date/Time of Note DATE: 09/10/18 TIME: 15:17 Assessment/Plan VTE Prophylaxis Pharmacological prophylaxis: heparin Lines/Catheters IV Catheter Type (from Nrs): Saline Lock Urinary Cath still in place: No Assessment/Plan Hospital Course 1. Sepsis secondary bronchitis/developing pneumonia Rocephin and azithromycin IV fluids Trend lactic Follow-up culture results ID consultation obtained 2. Acute respiratory distress secondary to bronchitis/pneumonia Continue IV antibiotics Continue supplemental oxygen 3. Type 1 diabetes with hyperglycemia-uncontrolled A1c at 11.8 Increase scheduled insulin 4. Left inguinal lymphadenopathy and tenderness CT abdomen shows retroperitoneal , left iliac chain and left inguinal lymphadenopathy with largest lymph node measures 1.8 cm in the left inguinal region CT-guided needle biopsy has been ordered Oncology consultation if indicated 5. CKD Monitor 6. Ischemic cardiomyopathy (EF 45% in 2016) Continue home meds 7. Dyslipidemia Continue statin 8. Hypertension Hold home meds secondary to hypotension from sepsis Prophylaxis: Heparin Result Diagram: 09/10/18 0509 09/10/18 0509 Results 24hrs Laboratory Tests Test 09/09/18 18:08 09/09/18 18:20 09/09/18 19:29 09/09/18 20:42 POC Venous 1.6 1.9 Lactate White Blood Count 13.7 #H Red Blood Count 5.41 Hemoglobin 13.3 L Hematocrit 41.8 L Mean Corpuscular 77.3 L Volume Mean Corpuscular 24.6 L Hemoglobin Mean Corpuscular 31.8 L Hemoglobin Concen t Red Cell 15.8 H Distribution Width Platelet Count 180 # Mean Platelet 10.7 H Volume Immature 0.700 H Granulocytes % Neutrophils % 85.0 H Lymphocytes % 8.4 L Monocytes % 5.5 Eosinophils % 0.1 Basophils % 0.3 Nucleated Red 0.0 Blood Cells % Immature 0.090 H Granulocytes # Neutrophils # 11.7 H Lymphocytes # 1.2 Monocytes # 0.8 Eosinophils # 0.0 Basophils # 0.0 Nucleated Red 0.0 Blood Cells # Prothrombin Time 12.3 Prothrombin Time 1.0 Ratio INR International 0.90 Normalized Ratio Activated 27.6 Partial Thrombopl ast Time Sodium Level 137 Potassium Level 4.6 Chloride Level 104 Carbon Dioxide 22 Level Anion Gap 11 Blood Urea 38 H Nitrogen Creatinine 1.31 H Est Glomerular 56 L Filtrat Rate mL/min Glucose Level 356 H Calcium Level 9.7 Total Bilirubin 0.2 Direct Bilirubin 0.00 Indirect 0.2 Bilirubin Aspartate Amino 59 H Transf (AST/SGOT) Alanine 40 Aminotransferase (ALT/SGPT) Alkaline 183 H Phosphatase Troponin I 0.018 B-Type 2490 H Natriuretic Peptide Total Protein 7.0 Albumin 3.8 Globulin 3.20 Albumin/Globulin 1.18 Ratio Bedside Glucose 352 H Test 09/09/18 21:10 09/09/18 23:37 09/10/18 05:09 09/10/18 08:09 Urine Color YELLOW Urine Clarity SLIGHTLY CLOUDY A Urine pH 5.0 Urine Specific 1.013 [place] Urine Ketones NEGATIVE Urine Nitrite NEGATIVE Urine Bilirubin NEGATIVE Urine NEGATIVE Urobilinogen Urine Leukocyte NEGATIVE Esterase Urine Microscopic 11 H RBC Urine Microscopic 2 WBC Urine Amorphous FEW A Crystals Urine Bacteria FEW A Urine Hyaline FEW A Casts Urine Hemoglobin 2+ H Urine Glucose 1+ H Urine Total 2+ H Protein Lactic Acid Level 2.1 *H White Blood Count 14.5 H Red Blood Count 4.72 Hemoglobin 11.5 L Hematocrit 36.7 L Mean Corpuscular 77.8 L Volume Mean Corpuscular 24.4 L Hemoglobin Mean Corpuscular 31.3 L Hemoglobin Concen t Red Cell 16.1 H Distribution Width Platelet Count 172 Mean Platelet 11.5 H Volume Immature 1.000 H Granulocytes % Neutrophils % 81.9 H Lymphocytes % 11.5 L Monocytes % 5.3 Eosinophils % 0.0 Basophils % 0.3 Nucleated Red 0.0 Blood Cells % Immature 0.150 H Granulocytes # Neutrophils # 11.8 H Lymphocytes # 1.7 Monocytes # 0.8 Eosinophils # 0.0 Basophils # 0.1 Nucleated Red 0.0 Blood Cells # Sodium Level 136 Potassium Level 5.1 Chloride Level 100 Carbon Dioxide 26 Level Anion Gap 10 Blood Urea 42 H Nitrogen Creatinine 1.82 H Est Glomerular 38 L Filtrat Rate mL/min Glucose Level 330 H Hemoglobin A1c 11.8 H Calcium Level 8.7 Magnesium Level 1.9 Total Bilirubin 0.2 Direct Bilirubin 0.00 Indirect 0.2 Bilirubin Aspartate Amino 48 H Transf (AST/SGOT) Alanine 56 Aminotransferase (ALT/SGPT) Alkaline 138 H Phosphatase Creatine Kinase 59 Creatine Kinase 1.9 Index Creatinine Kinase 1.14 MB (Mass) Troponin I 0.037 Total Protein 6.1 Albumin 3.2 L Globulin 2.90 Albumin/Globulin 1.10 Ratio Triglycerides 167 H Level Cholesterol Level 147 LDL Cholesterol, 80 Calculated HDL Cholesterol 34 Cholesterol/HDL 4.3 Ratio Thyroid 1.200 Stimulating Hormone (TSH) Bedside Glucose 360 H Test 09/10/18 09:42 09/10/18 10:31 09/10/18 12:20 Bedside Glucose 396 H 366 H Creatine Kinase 58 Creatine Kinase 1.6 Index Creatinine Kinase 0.95 MB (Mass) Troponin I 0.017 Subjective 24 Hr Interval Summary Gastrointestinal: nausea Exam/Review of Systems Exam Vitals Vital Signs Date Temp Pulse Resp B/P (MAP) Pulse Ox O2 O2 Flow FiO2 Time Delivery Rate 09/10/18 76 12:18 09/10/18 98.0 18 92/53 (66) 96 Nasal 11:22 Cannula 09/10/18 3.0 08:41 Intake and Output 09/09/18 09/09/18 09/10/18 1515:00 23:00 07:00 IntakeIntake Total 300 ml 650 ml OutputOutput Total 600 ml BalanceBalance 300 ml 50 ml Constitutional: alert, oriented Respiratory: clear to auscultation Cardiovascular: regular rate and rhythm, rub Gastrointestinal: soft; No distended Musculoskeletal: nl extremities to inspection Results Results 24hrs Laboratory Tests Test 09/09/18 18:08 09/09/18 18:20 09/09/18 19:29 09/09/18 20:42 POC Venous 1.6 1.9 Lactate White Blood Count 13.7 #H Red Blood Count 5.41 Hemoglobin 13.3 L Hematocrit 41.8 L Mean Corpuscular 77.3 L Volume Mean Corpuscular 24.6 L Hemoglobin Mean Corpuscular 31.8 L Hemoglobin Concen t Red Cell 15.8 H Distribution Width Platelet Count 180 # Mean Platelet 10.7 H Volume Immature 0.700 H Granulocytes % Neutrophils % 85.0 H Lymphocytes % 8.4 L Monocytes % 5.5 Eosinophils % 0.1 Basophils % 0.3 Nucleated Red 0.0 Blood Cells % Immature 0.090 H Granulocytes # Neutrophils # 11.7 H Lymphocytes # 1.2 Monocytes # 0.8 Eosinophils # 0.0 Basophils # 0.0 Nucleated Red 0.0 Blood Cells # Prothrombin Time 12.3 Prothrombin Time 1.0 Ratio INR International 0.90 Normalized Ratio Activated 27.6 Partial Thrombopl ast Time Sodium Level 137 Potassium Level 4.6 Chloride Level 104 Carbon Dioxide 22 Level Anion Gap 11 Blood Urea 38 H Nitrogen Creatinine 1.31 H Est Glomerular 56 L Filtrat Rate mL/min Glucose Level 356 H Calcium Level 9.7 Total Bilirubin 0.2 Direct Bilirubin 0.00 Indirect 0.2 Bilirubin Aspartate Amino 59 H Transf (AST/SGOT) Alanine 40 Aminotransferase (ALT/SGPT) Alkaline 183 H Phosphatase Troponin I 0.018 B-Type 2490 H Natriuretic Peptide Total Protein 7.0 Albumin 3.8 Globulin 3.20 Albumin/Globulin 1.18 Ratio Bedside Glucose 352 H Test 09/09/18 21:10 09/09/18 23:37 09/10/18 05:09 09/10/18 08:09 Urine Color YELLOW Urine Clarity SLIGHTLY CLOUDY A Urine pH 5.0 Urine Specific 1.013 [place] Urine Ketones NEGATIVE Urine Nitrite NEGATIVE Urine Bilirubin NEGATIVE Urine NEGATIVE Urobilinogen Urine Leukocyte NEGATIVE Esterase Urine Microscopic 11 H RBC Urine Microscopic 2 WBC Urine Amorphous FEW A Crystals Urine Bacteria FEW A Urine Hyaline FEW A Casts Urine Hemoglobin 2+ H Urine Glucose 1+ H Urine Total 2+ H Protein Lactic Acid Level 2.1 *H White Blood Count 14.5 H Red Blood Count 4.72 Hemoglobin 11.5 L Hematocrit 36.7 L Mean Corpuscular 77.8 L Volume Mean Corpuscular 24.4 L Hemoglobin Mean Corpuscular 31.3 L Hemoglobin Concen t Red Cell 16.1 H Distribution Width Platelet Count 172 Mean Platelet 11.5 H Volume Immature 1.000 H Granulocytes % Neutrophils % 81.9 H Lymphocytes % 11.5 L Monocytes % 5.3 Eosinophils % 0.0 Basophils % 0.3 Nucleated Red 0.0 Blood Cells % Immature 0.150 H Granulocytes # Neutrophils # 11.8 H Lymphocytes # 1.7 Monocytes # 0.8 Eosinophils # 0.0 Basophils # 0.1 Nucleated Red 0.0 Blood Cells # Sodium Level 136 Potassium Level 5.1 Chloride Level 100 Carbon Dioxide 26 Level Anion Gap 10 Blood Urea 42 H Nitrogen Creatinine 1.82 H Est Glomerular 38 L Filtrat Rate mL/min Glucose Level 330 H Hemoglobin A1c 11.8 H Calcium Level 8.7 Magnesium Level 1.9 Total Bilirubin 0.2 Direct Bilirubin 0.00 Indirect 0.2 Bilirubin Aspartate Amino 48 H Transf (AST/SGOT) Alanine 56 Aminotransferase (ALT/SGPT) Alkaline 138 H Phosphatase Creatine Kinase 59 Creatine Kinase 1.9 Index Creatinine Kinase 1.14 MB (Mass) Troponin I 0.037 Total Protein 6.1 Albumin 3.2 L Globulin 2.90 Albumin/Globulin 1.10 Ratio Triglycerides 167 H Level Cholesterol Level 147 LDL Cholesterol, 80 Calculated HDL Cholesterol 34 Cholesterol/HDL 4.3 Ratio Thyroid 1.200 Stimulating Hormone (TSH) Bedside Glucose 360 H Test 09/10/18 09:42 09/10/18 10:31 09/10/18 12:20 Bedside Glucose 396 H 366 H Creatine Kinase 58 Creatine Kinase 1.6 Index Creatinine Kinase 0.95 MB (Mass) Troponin I 0.017 Medications Medication Current Medications Influenza Virus Vaccine Quadrival (Fluzone) 0.5 ml ONCE ONCE IM* ; Start 09/11/18 at 10:00; Stop 09/11/18 at 10:01 IV Flush (NS 3 ml) 3 ml PER PROTOCOL IV ; Start 09/10/18 at 05:00 Ondansetron HCl (Zofran Inj) 4 mg Q6H PRN IV NAUSEA/VOMITING Last administered on 09/10/18at 09:43; Admin Dose 4 MG; Start 09/10/18 at 05:00 Nitroglycerin (Nitroglycerin (Sl Tab) 0.4 Mg) 1 tab Q5M PRN SL .CHEST PAIN; Start 09/10/18 at 05:00 Acetaminophen (Tylenol Tab) 650 mg Q6H PRN PO .PAIN 1-3 OR TEMP Last administered on 09/10/18at 12:23; Admin Dose 650 MG; Start 09/10/18 at 05:00 Heparin Sodium (Porcine) (Heparin (5000 Units/1ml)) 5,000 unit Q12 SC Last administered on 09/10/18at 09:14; Admin Dose 5,000 UNIT; Start 09/10/18 at 09:00 Albuterol/ Ipratropium (Duoneb) 3 ml Q2H RESP THERAPY PRN HHN SHORTNESS OF BREATH Last administered on 09/10/18at 08:40; Admin Dose 3 ML; Start 09/10/18 at 05:00 Alprazolam (Xanax) 0.5 mg TID PRN PO ANXIETY; Start 09/10/18 at 05:00 Aspirin (Aspirin) 81 mg DAILY PO Last administered on 09/10/18at 08:59; Admin Dose 81 MG; Start 09/10/18 at 09:00 Atorvastatin Calcium (Lipitor) 80 mg HS PO ; Start 09/10/18 at 21:00 Carvedilol (Coreg) 6.25 mg BID PO Last administered on 09/10/18 08:59; Admin Dose 6.25 MG; Start 09/10/18 at 09:00 Furosemide (Lasix) 40 mg DAILY PO Last administered on 09/10/18 08:59; Admin Dose 40 MG; Start 09/10/18 at 09:00 Gabapentin (Neurontin) 300 mg TID PO Last administered on 09/10/18 12:23; Admin Dose 300 MG; Start 09/10/18 at 09:00 Hydralazine HCl (Apresoline) 10 mg Q12 PO Last administered on 09/10/18 08:57; Admin Dose 10 MG; Start 09/10/18 at 09:00 Isosorbide Dinitrate (Isordil) 20 mg TID PO Last administered on 09/10/18 08:56; Admin Dose 20 MG; Start 09/10/18 at 09:00 Montelukast Sodium (Singulair) 10 mg HS PO ; Start 09/10/18 at 21:00 Ranolazine (Ranexa) 1,000 mg Q12 PO Last administered on 09/10/18 08:56; Admin Dose 1,000 MG; Start 09/10/18 at 09:00 Tramadol HCl (Ultram) 100 mg Q6 PRN PO PAIN Last administered on 09/10/18 06:20; Admin Dose 100 MG; Start 09/10/18 at 05:00 Valproic Acid (Depakene) 250 mg BID PO Last administered on 09/10/18 08:57; Admin Dose 250 MG; Start 09/10/18 at 09:00 Fish Oil (Fish Oil) 2,000 mg BID PO Last administered on 09/10/18 08:58; Admin Dose 2,000 MG; Start 09/10/18 at 09:00 Diagnostic Test (Pha) (Accu-Chek) 1 ea 02 XX ; Start 09/11/18 at 02:00 Insulin Glargine (Lantus) 29 units DAILY@0800 SC Last administered on 09/10/18 09:13; Admin Dose 29 UNITS; Start 09/10/18 at 08:00 Insulin Aspart (Novolog Insulin Pen) 8 unit WITH MEALS SC Last administered on 2/27/19at 12:30; Admin Dose 8 UNIT; Start 09/10/18 at 07:55 Insulin Aspart (Novolog Insulin Pen) NOVOLOG *MODERATE* ALGORITHM WITH MEALS BEDTIME SC Last administered on 09/10/18at 12:28; Admin Dose 12 UNIT; Start 09/10/18 at 07:55 Miscellaneous Information 1 ea NOTE XX ; Start 09/10/18 at 06:00 Glucose (Glutose) 15 gm Q15M PRN PO DECREASED GLUCOSE; Start 09/10/18 at 06:00 Glucose (Glutose) 22.5 gm Q15M PRN PO DECREASED GLUCOSE; Start 09/10/18 at 06:00 Dextrose (D50w Syringe) 25 ml Q15M PRN IV DECREASED GLUCOSE; Start 09/10/18 at 06:00 Dextrose (D50w Syringe) 50 ml Q15M PRN IV DECREASED GLUCOSE; Start 09/10/18 at 06:00 Glucagon (Glucagen) 1 mg Q15M PRN IM DECREASED GLUCOSE; Start 09/10/18 at 06:00 Glucose (Glutose) 15 gm Q15M PRN BUCCAL DECREASED GLUCOSE; Start 09/10/18 at 06:00 Vancomycin HCl (Vanco Iv Per Pharmacy) VANCOMYCIN PER PHARMACY PER PROTOCOL XX ; Start 09/10/18 at 09:30 BRANDON WHITNEY Sep 10, 2018 15:32
[2018-09-10] MEDS: CEFTRIAXONE 1 GM/50 ML (PMX) 50 ML IVPB SCH (15:46)
[2018-09-10] MEDS: SOD CHLORIDE 0.9% 1,000 ML IV SCH (15:46)
[2018-09-10] MEDS: AZITHROMYCIN 500MG/NS (PMX) 250 ML IVPB SCH (17:40)
--- NOTE | 2018-09-10 18:50 | RADRPT ---
Echocardiogram Report Patient Name: LISA DAILYPatient ID: [id number] : 1960 (57y 11m)Study Date: 09/10/2018 7:07:56 AM Gender: MAccession #: [id number] Tech: Elizabeth Almanzar CRYSTAL Location: 523 Ref.Physician: DERIK LOVE Height(Cm): BSA: Weight(Kg): Quality: Technically Difficult StudyAccount #: Procedures: Echocardiographic Report: Transthoracic echocardiogram with complete 2D, M-Mode, and doppler examination. Indications: Chest Pain. Measurements: 2D/M Mode Doppler Measurement Value Normal Range Measurement Value Normal Range LVIDd 2D 5.2 [ 4.2 - 5.8 ] cm AV Peak Abraham 1.7 [ 100.0 - 170.0 ] cm/sec LVIDs 2D 4.0 [ 2.5 - 4.0 ] cm AV Peak PG 11.0 [ 2.0 - 9.0 ] mmHg LVPWd 2D 1.1 [ 0.6 - 1.0 ] cm LVOT Peak Abraham 0.9 [ 70.0 - 110.0 ] cm/sec IVSd 2D 1.2 [ 0.6 - 1.0 ] cm LVOT Peak PG 3.0 [ 2.0 - 6.0 ] mmHg AoR Diam 2D 3.1 [ 2.6 - 3.4 ] cm MV E Peak Abraham 1.4 [ 60.0 - 130.0 ] cm/sec EDV 2D 130.0 [ 62.0 - 150.0 ] ml MV A Peak Abraham 0.9 [ 100.0 - 120.0 ] cm/sec ESV 2D 69.2 [ 21.0 - 61.0 ] ml MV E/A 1.6 [ 0.8 - 1.5 ] ratio EF 2D 46.8 [ 52.0 - 72.0 ] percent MV Decel Time 183 [ 104 - 258 ] msec LA Dimen 2D 4.0 [ 3.0 - 4.0 ] cm Lat E` Abraham 0.1 [ 10.0 - 15.0 ] cm/sec Lateral E/E` 18.4 [ 1.0 - 2.0 ] ratio MV E/A 1.6 [ 0.8 - 1.5 ] ratio TR Peak Abraham 2.3 [ 100.0 - 280.0 ] cm/sec TR Peak PG 21.0 mmHg RVSP 24.0 [ 10.0 - 36.0 ] mmHg RA Pressure 3.0 mmHg Findings: Left Ventricle: Normal left ventricular cavity size. Mild concentric left ventricular hypertrophy. Mild global left ventricular systolic dysfunction. Ejection fraction is visually estimated at 45-50 %. Tissue Doppler/Mitral Doppler indices are consistent with pseudonormalization with mildly elevated left atrial pressure (Stage II diastolic dysfunction). Right Ventricle: Normal right ventricular size. Normal right ventricular systolic function. Left Atrium: The left atrium is normal in size. Right Atrium: The right atrium is normal in size. Mitral Valve: Normal appearance and function of the mitral valve with trace physiologic regurgitation. Aortic Valve: No significant aortic stenosis or insufficiency. Aortic cusps appear mildly calcified. Tricuspid Valve: Normal appearance of the tricuspid valve. Estimated peak PA systolic pressure 24 mmHg. There is trace tricuspid regurgitation. Pulmonic Valve: Normal pulmonic valve appearance. Pericardium: Normal pericardium with no significant pericardial effusion. Aorta: Normal aortic root. IVC: Normal size and normal respiratory collapse consistent with normal right atrial pressure. Conclusions: Normal left ventricular cavity size. Mild concentric left ventricular hypertrophy. Mild global left ventricular systolic dysfunction. Ejection fraction is visually estimated at 45-50 %. Tissue Doppler/Mitral Doppler indices are consistent with pseudonormalization with mildly elevated left atrial pressure (Stage II diastolic dysfunction). Normal appearance and function of the mitral valve with trace physiologic regurgitation. Normal appearance of the tricuspid valve. Estimated peak PA systolic pressure 24 mmHg. There is trace tricuspid regurgitation. Electronically Signed By: Chance Brown 2018-09-10 18:49:37 PST
--- NOTE | 2018-09-10 21:32 | CONS ---
DATE OF ADMISSION: 09/09/2018 DATE OF CONSULTATION: 09/10/2018 TYPE OF CONSULTATION: Infectious Disease. REASON FOR CONSULTATION: Antibiotic management. HISTORY OF PRESENT ILLNESS: Fadi Reynolds is a 57-year-old male who comes in with chest pain 1 hour prior to admission. Past problems include: 1. Hypertension. 2. Adult-onset diabetes mellitus. 3. Dyslipidemia. 4. Coronary artery disease, status post multiple PCIs. 5. Stable angina. 6. Ischemic cardiomyopathy with ejection fraction of 45%. 7. Chronic renal disease. 8. Emphysema. The patient comes to the emergency room complaining of body pain. Past problems also include surgical problems status post lithotripsy, status post cholecystectomy. Richard solis has 13 stent placements. He has a history of neuropathy, pneumonia, shortness of breath, hypertens ion, history of an IA and hypercholesterolemia. FAMILY HISTORY: Positive for coronary artery disease. SOCIAL HISTORY: He smokes tobacco. He does not drink or abuse drugs. ALLERGIES: NONE TO PENICILLIN, SULFA OR FOODS. MEDICATIONS: Per chart. REVIEW OF SYSTEMS: Noncontributory. PHYSICAL EXAMINATION: GENERAL: The patient is a well-developed, well-nourished male who is alert, responsive, in no acute distress. VITAL SIGNS: Stable. He is afebrile. SKIN: Without generalized rash. HEENT: Within normal limits. NECK: Supple. LYMPH NODES: None palpable. CHEST: Decreased breath sounds at the bases. HEART: Without murmur or gallop. He is tachycardic. ABDOMEN: Soft, obese, nontender without organosplenomegaly or masses. EXTREMITIES: Without cyanosis or clubbing. A 1+ pretibial edema. RECTAL AND GENITAL: Deferred. NEUROLOGICAL EVALUATION: No focal neurological abnormality. MICROBIOLOGY: Blood culture is growing gram-positive cocci in pairs and chains. Urine culture is ne gative. IMAGING: EKG shows sinus tachycardia. Chest x-ray shows increased bilateral interstitial markings, may represent interstitial edema versus interstitial pneumonia. CT scan of the abdomen and pelvis: Status post cholecystectomy. He has a r etroperitoneal, left iliac chain and left inguinal adenopathy with largest lymph node 1.8 cm in the l eft inguinal region. There is interval in size and partially visualized right infrahilar and thoraci c periaortic lymph node, moderate diffuse peribronchial thickening suggestive of bronchitis, marked c oronary artery calcifications, splenomegaly measuring 14.5 cm, unchanged since CT of 2017. No apprec iable ascites. Has bibasilar atelectasis, diffuse peribronchial thickening suggestive of bronchitis likely superimposed with mild interstitial edema. IMPRESSION AND PLAN: As noted, the patient had positive blood culture. White count of 14.5 today. The patient begun on ceftriaxone, also on vancomycin. The patient is on Rocephin and azithromycin. We have to make sure that he has not been hospitalized recently or else he would be healthcare-associ ated pneumonia. We will continue him on his current regimen. I will dictate my findings to the hosp italist. Dictated By: DENNIS LEWIS MD, JD/GABY Conf#: [id number] DID#: [id number] CC: DERIK LOVE MD;*EndCC*
[2018-09-10] MEDS: ATORVASTATIN 80 MG TAB PO SCH (21:45)
[2018-09-10] MEDS: MONTELUKAST 10 MG TAB PO SCH (21:46)
[2018-09-11] VITALS (14 sets, daily range): BP systolic 110–151; BP diastolic 59–86; PULSE 78–92; RESP 18–20
[2018-09-11] MEDS: ACCU-CHEK XX SCH (01:37)
[2018-09-11] MEDS: SOD CHLORIDE 0.9% 1,000 ML IV SCH ×3 (03:14→20:35)
[2018-09-11] MEDS: INSULIN ASPART [NOVOLOG] 3 ML PEN SC SCH ×7 (07:55→20:38)
[2018-09-11] MEDS: INSULIN GLARGINE [LANTus] (100 UNITS/ML) SYG SC SCH (08:00)
[2018-09-11] MEDS: HEPARIN 5,000 UNIT/1 ML VIAL SC SCH ×2 (08:44→20:30)
[2018-09-11] MEDS: GABAPENTIN 300 MG CAP PO SCH ×3 (08:45→20:16)
[2018-09-11] MEDS: ASPIRIN 81 MG TAB PO SCH (08:45)
[2018-09-11] MEDS: VALPROIC ACID 250 MG CAP PO SCH ×2 (08:46→20:15)
[2018-09-11] MEDS: RANOLAZINE (SR) 500 MG TAB PO SCH ×2 (08:46→20:15)
[2018-09-11] MEDS: FISH OIL 1,000 MG CAP PO SCH ×2 (08:46→20:15)
[2018-09-11] MEDS: FUROSEMIDE 40 MG TAB PO SCH (08:46)
[2018-09-11] MEDS: traMADol 50 MG TAB PO PRN (08:46)
[2018-09-11] MEDS: ISOSORBIDE DINITRATE 20 MG TAB PO SCH ×3 (08:47→20:18)
[2018-09-11] MEDS ORDERED: INSULIN GLARGINE [LANTus] (100 UNITS/ML) SYG SC ONE (10:00)
[2018-09-11] MEDS ORDERED: INFLUENZA VIRUS VACCINE 0.5 ML (DISPENSING) IM* ONE (10:00)
[2018-09-11] MEDS ORDERED: LIDOCAINE 1% (MDV) 20 ML INJ ONE (10:17)
--- NOTE | 2018-09-11 10:28 | CONS ---
Assessment/Plan Assessment/Plan Assessment/Plan (Daily) 1. acute kidney injury due to ATN From pneumonia 2. sepsis due to pneumonia 3. pneumonia, worried about community acquired PNA 4. h/o HTn 5. h/o Myocardial infarction 6. h/o Lithotripsy before for left kidney stone Plan: s/p US guided left groin LN biopsy today BUN/Cr 47/1.93, Bp stable IV abx for PNA and sepiss, renally dose all abx and monitor electrolytes will follow up Consultation Date/Type/Reason Admit Date/Time Sep 09, 2018 at 21:23 Initial Consult Date 09/10/18 Type of Consult NEPHROLOGY Requesting Provider: DERIK LOVE MD Date/Time of Note DATE: 09/11/18 TIME: 10:28 24 HR Interval Summary Free Text/Dictation s/p US guided left groin LN biopsy Exam/Review of Systems Exam Vitals Vital Signs Date Temp Pulse Resp B/P (MAP) Pulse Ox O2 O2 Flow FiO2 Time Delivery Rate 09/11/18 3.0 32 08:25 09/11/18 85 08:07 09/11/18 Nasal 07:41 Cannula 09/11/18 97.9 18 124/74 97 07:20 (91) Intake and Output 09/10/18 09/10/18 09/11/18 1515:00 23:00 07:00 IntakeIntake Total 1250 ml 500 ml OutputOutput Total 800 ml 800 ml BalanceBalance 450 ml -300 ml Exam Constitutional: alert, awake, Respiratory: diminished breath sounds, other (RLL Crackles ) Cardiovascular: regular rate and rhythm Gastrointestinal: soft, non-tender Musculoskeletal: nl extremities to inspection Extremities: normal pulses 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: PLAQUE MAKER II-XII intact, nl mental status, nl speech, nl strength Results Result Diagram: 09/11/18 0540 09/11/18 0540 Results 24hrs Laboratory Tests Test 09/10/18 10:31 09/10/18 12:20 09/10/18 17:41 09/10/18 19:30 Creatine Kinase 58 Creatine Kinase 1.6 Index Creatinine Kinase MB 0.95 (Mass) Troponin I 0.017 Bedside Glucose 366 H 183 Urine Eosinophils % 0.0 Urine Random 145.78 Creatinine Urine Random Sodium < 13 L Urine 3.77 Protein/Creatinine Ratio Urine Total Protein 551.0 H Test 09/10/18 21:50 09/11/18 05:40 09/11/18 08:03 Bedside Glucose 114 196 White Blood Count 9.2 # Red Blood Count 4.34 L Hemoglobin 10.7 L Hematocrit 34.4 L Mean Corpuscular 79.3 L Volume Mean Corpuscular 24.7 L Hemoglobin Mean Corpuscular 31.1 L Hemoglobin Concent Red Cell 16.4 H Distribution Width Platelet Count 153 Mean Platelet Volume 10.9 H Immature 0.500 H Granulocytes % Neutrophils % 66.6 Lymphocytes % 21.1 Monocytes % 9.8 Eosinophils % 1.6 Basophils % 0.4 Nucleated Red Blood 0.0 Cells % Immature 0.050 H Granulocytes # Neutrophils # 6.1 Lymphocytes # 1.9 Monocytes # 0.9 Eosinophils # 0.2 Basophils # 0.0 Nucleated Red Blood 0.0 Cells # Sodium Level 135 Potassium Level 4.6 Chloride Level 102 Carbon Dioxide Level 26 Anion Gap 7 Blood Urea Nitrogen 47 H Creatinine 1.93 H Est Glomerular 36 L Filtrat Rate mL/min Glucose Level 127 # Uric Acid 9.2 H Calcium Level 7.9 L Phosphorus Level 4.1 Magnesium Level 2.2 Creatine Kinase 39 Medications Medication Current Medications IV Flush (NS 3 ml) 3 ml PER PROTOCOL IV ; Start 09/10/18 at 05:00 Ondansetron HCl (Zofran Inj) 4 mg Q6H PRN IV NAUSEA/VOMITING Last administered on 09/10/18at 09:43; Admin Dose 4 MG; Start 09/10/18 at 05:00 Nitroglycerin (Nitroglycerin (Sl Tab) 0.4 Mg) 1 tab Q5M PRN SL .CHEST PAIN; Start 09/10/18 at 05:00 Acetaminophen (Tylenol Tab) 650 mg Q6H PRN PO .PAIN 1-3 OR TEMP Last administered on 09/10/18at 12:23; Admin Dose 650 MG; Start 09/10/18 at 05:00 Heparin Sodium (Porcine) (Heparin (5000 Units/1ml)) 5,000 unit Q12 SC Last administered on 09/10/18at 21:56; Admin Dose 5,000 UNIT; Start 09/10/18 at 09:00 Albuterol/ Ipratropium (Duoneb) 3 ml Q2H RESP THERAPY PRN HHN SHORTNESS OF BREATH Last administered on 09/10/18 08:40; Admin Dose 3 ML; Start 09/10/18 at 05:00 Alprazolam (Xanax) 0.5 mg TID PRN PO ANXIETY; Start 09/10/18 at 05:00 Aspirin (Aspirin) 81 mg DAILY PO Last administered on 09/11/18 08:45; Admin Dose 81 MG; Start 09/10/18 at 09:00 Atorvastatin Calcium (Lipitor) 80 mg HS PO Last administered on 09/10/18 21:45; Admin Dose 80 MG; Start 09/10/18 at 21:00 Carvedilol (Coreg) 6.25 mg BID PO Last administered on 09/11/18 08:47; Admin Dose 6.25 MG; Start 09/10/18 at 09:00 Furosemide (Lasix) 40 mg DAILY PO Last administered on 09/11/18 08:46; Admin Dose 40 MG; Start 09/10/18 at 09:00 Gabapentin (Neurontin) 300 mg TID PO Last administered on 09/11/18 08:45; Admin Dose 300 MG; Start 09/10/18 at 09:00 Hydralazine HCl (Apresoline) 10 mg Q12 PO Last administered on 09/10/18 08:57; Admin Dose 10 MG; Start 09/10/18 at 09:00 Isosorbide Dinitrate (Isordil) 20 mg TID PO Last administered on 09/11/18 08:47; Admin Dose 20 MG; Start 09/10/18 at 09:00 Montelukast Sodium (Singulair) 10 mg HS PO Last administered on 09/10/18 21:46; Admin Dose 10 MG; Start 09/10/18 at 21:00 Ranolazine (Ranexa) 1,000 mg Q12 PO Last administered on 09/11/18 08:46; Admin Dose 1,000 MG; Start 09/10/18 at 09:00 Tramadol HCl (Ultram) 100 mg Q6 PRN PO PAIN Last administered on 09/11/18 08:46; Admin Dose 100 MG; Start 09/10/18 at 05:00 Valproic Acid (Depakene) 250 mg BID PO Last administered on 09/11/18 08:46; Admin Dose 250 MG; Start 09/10/18 at 09:00 Fish Oil (Fish Oil) 2,000 mg BID PO Last administered on 09/11/18at 08:46; Admin Dose 2,000 MG; Start 09/10/18 at 09:00 Diagnostic Test (Pha) (Accu-Chek) 1 ea 02 XX ; Start 09/11/18 at 02:00 Insulin Aspart (Novolog Insulin Pen) NOVOLOG *MODERATE* ALGORITHM WITH MEALS BEDTIME SC Last administered on 09/10/18at 18:22; Admin Dose 4 UNIT; Start at 07:55 Miscellaneous Information 1 ea NOTE XX ; Start 09/10/18 at 06:00 Glucose (Glutose) 15 gm Q15M PRN PO DECREASED GLUCOSE; Start 09/10/18 at 06:00 Glucose (Glutose) 22.5 gm Q15M PRN PO DECREASED GLUCOSE; Start 09/10/18 at 06:00 Dextrose (D50w Syringe) 25 ml Q15M PRN IV DECREASED GLUCOSE; Start 09/10/18 at 06:00 Dextrose (D50w Syringe) 50 ml Q15M PRN IV DECREASED GLUCOSE; Start 09/10/18 at 06:00 Glucagon (Glucagen) 1 mg Q15M PRN IM DECREASED GLUCOSE; Start 09/10/18 at 06:00 Glucose (Glutose) 15 gm Q15M PRN BUCCAL DECREASED GLUCOSE; Start 09/10/18 at 06:00 Sodium Chloride 1,000 ml @ 100 mls/hr Q10H IV Last administered on 09/11/18at 03:14; Admin Dose 100 MLS/HR; Start 09/10/18 at 15:30 Ceftriaxone Sodium 50 ml @ 100 mls/hr Q24H IVPB Last administered on 09/10/18at 15:46; Admin Dose 100 MLS/HR; Start 09/10/18 at 15:30 Azithromycin 250 ml @ 250 mls/hr Q24H IVPB Last administered on 09/10/18at 17:40; Admin Dose 250 MLS/HR; Start 09/10/18 at 15:30 Insulin Aspart (Novolog Insulin Pen) 11 unit WITH MEALS SC Last administered on 09/10/18at 17:51; Admin Dose 11 UNIT; Start 09/10/18 at 17:55 Insulin Glargine (Lantus) 32 units DAILY@0800 SC ; Start 09/11/18 at 08:00 ANDREW BOWLING MD Sep 11, 2018 10:28
--- NOTE | 2018-09-11 11:12 | HPN ---
Date/Time of Note Date/Time of Note DATE: 09/11/18 TIME: 11:12 Interval H&P Admission Note Pt. seen H&P reviewed: No system changes JUDY SIMMONS MD Sep 11, 2018 11:12
[2018-09-11] MEDS: morphine 2 MG INJ IV PRN ×3 (14:21→23:39)
[2018-09-11] MEDS: CEFTRIAXONE 1 GM/50 ML (PMX) 50 ML IVPB SCH (15:06)
--- NOTE | 2018-09-11 16:51 | CONS ---
Assessment/Plan Assessment/Plan Hospital Course (Demo Recall) Patient is awake feels better looks comfortable no fevers overnight. WBC today 9.2 no shift no bands BUN 47 creatinine 1.93 Microbiology: Blood culture on admission grew beta-hemolytic strep species CT of the abdomen and pelvis on admission revealed retroperitoneal left iliac chain and left inguinal lymphadenopathy with largest lymph node measures 1.5 cm in the left inguinal region. Moderate diffuse peribronchial thickening suggestive of bronchitis with likely superimposed mass mild interstitial edema. Splenomegaly, unchanged since [address] CT. Antimicrobials: Zithromax Rocephin Physical examination: Well-nourished well-developed middle-aged [place]ian-speaking man who is alert in no distress. Head atraumatic normocephalic. Neck is supple. Chest rise symmetrical, breath sounds diminished bases. Heart: S1-S2. Abdomen distended soft bowel sounds present. Extremities without cyanosis. Assessment: 1. Sepsis present on admission 2. Beta-hemolytic strep bacteremia likely pulmonary source 3. Streptococcal pneumonia 4. Lymphadenopathy status post left groin lymph node biopsy this morning 5. Acute kidney failure 6. Diabetes 7. Ischemic cardiomyopathy 7. Obesity Plan: Patient is stable and doing better, 2D echo revealed no vegetations, continue on current antibiotics and repeat blood cultures. Follow lymph node biopsy results, follow nephrology recommendations. Discussed with patient at bedside Consultation Date/Type/Reason Admit Date/Time Sep 09, 2018 at 21:23 Initial Consult Date 09/10/18 Type of Consult id Requesting Provider: DERIK LOVE MD Date/Time of Note DATE: 09/11/18 TIME: 16:50 Exam/Review of Systems Exam Vitals Vital Signs Date Temp Pulse Resp B/P (MAP) Pulse Ox O2 O2 Flow FiO2 Time Delivery Rate 09/11/18 84 16:15 09/11/18 98.2 18 112/61 95 Room Air 15:02 (78) 09/11/18 2.0 11:27 09/11/18 32 08:25 Intake and Output 09/10/18 09/10/18 09/11/18 1515:00 23:00 07:00 IntakeIntake Total 1250 ml 500 ml OutputOutput Total 800 ml 800 ml BalanceBalance 450 ml -300 ml Results Result Diagram: 09/11/18 0540 09/11/18 0540 Results 24hrs Laboratory Tests Test 09/10/18 17:41 09/10/18 19:30 09/10/18 21:50 09/11/18 05:40 Bedside Glucose 183 114 Urine Eosinophils % 0.0 Urine Random 145.78 Creatinine Urine Random Sodium < 13 L Urine 3.77 Protein/Creatinine Ratio Urine Total Protein 551.0 H White Blood Count 9.2 # Red Blood Count 4.34 L Hemoglobin 10.7 L Hematocrit 34.4 L Mean Corpuscular 79.3 L Volume Mean Corpuscular 24.7 L Hemoglobin Mean Corpuscular 31.1 L Hemoglobin Concent Red Cell 16.4 H Distribution Width Platelet Count 153 Mean Platelet Volume 10.9 H Immature 0.500 H Granulocytes % Neutrophils % 66.6 Lymphocytes % 21.1 Monocytes % 9.8 Eosinophils % 1.6 Basophils % 0.4 Nucleated Red Blood 0.0 Cells % Immature 0.050 H Granulocytes # Neutrophils # 6.1 Lymphocytes # 1.9 Monocytes # 0.9 Eosinophils # 0.2 Basophils # 0.0 Nucleated Red Blood 0.0 Cells # Sodium Level 135 Potassium Level 4.6 Chloride Level 102 Carbon Dioxide Level 26 Anion Gap 7 Blood Urea Nitrogen 47 H Creatinine 1.93 H Est Glomerular 36 L Filtrat Rate mL/min Glucose Level 127 # Uric Acid 9.2 H Calcium Level 7.9 L Phosphorus Level 4.1 Magnesium Level 2.2 Lactate 831 H Dehydrogenase Creatine Kinase 39 Immunoglobulin A 166 Immunoglobulin G 473 L Immunoglobulin M 237 H Test 09/11/18 08:03 09/11/18 12:13 Bedside Glucose 196 174 Medications Medication Current Medications IV Flush (NS 3 ml) 3 ml PER PROTOCOL IV ; Start 09/10/18 at 05:00 Ondansetron HCl (Zofran Inj) 4 mg Q6H PRN IV NAUSEA/VOMITING Last administered on 09/10/18at 09:43; Admin Dose 4 MG; Start 09/10/18 at 05:00 Nitroglycerin (Nitroglycerin (Sl Tab) 0.4 Mg) 1 tab Q5M PRN SL .CHEST PAIN; Start 09/10/18 at 05:00 Acetaminophen (Tylenol Tab) 650 mg Q6H PRN PO .PAIN 1-3 OR TEMP Last administered on 09/10/18at 12:23; Admin Dose 650 MG; Start 09/10/18 at 05:00 Heparin Sodium (Porcine) (Heparin (5000 Units/1ml)) 5,000 unit Q12 SC Last administered on 09/10/18 21:56; Admin Dose 5,000 UNIT; Start 09/10/18 at 09:00 Albuterol/ Ipratropium (Duoneb) 3 ml Q2H RESP THERAPY PRN HHN SHORTNESS OF BREATH Last administered on 09/10/18 08:40; Admin Dose 3 ML; Start 09/10/18 at 05:00 Alprazolam (Xanax) 0.5 mg TID PRN PO ANXIETY; Start 09/10/18 at 05:00 Aspirin (Aspirin) 81 mg DAILY PO Last administered on 09/11/18 08:45; Admin Dose 81 MG; Start 09/10/18 at 09:00 Atorvastatin Calcium (Lipitor) 80 mg HS PO Last administered on 09/10/18 21:45; Admin Dose 80 MG; Start 09/10/18 at 21:00 Carvedilol (Coreg) 6.25 mg BID PO Last administered on 09/11/18 08:47; Admin Dose 6.25 MG; Start 09/10/18 at 09:00 Furosemide (Lasix) 40 mg DAILY PO Last administered on 09/11/18 08:46; Admin Dose 40 MG; Start 09/10/18 at 09:00 Gabapentin (Neurontin) 300 mg TID PO Last administered on 09/11/18 12:11; Admin Dose 300 MG; Start 09/10/18 at 09:00 Hydralazine HCl (Apresoline) 10 mg Q12 PO Last administered on 09/10/18 08:57; Admin Dose 10 MG; Start 09/10/18 at 09:00 Isosorbide Dinitrate (Isordil) 20 mg TID PO Last administered on 09/11/18 12:11; Admin Dose 20 MG; Start 09/10/18 at 09:00 Montelukast Sodium (Singulair) 10 mg HS PO Last administered on 09/10/18 21:46; Admin Dose 10 MG; Start 09/10/18 at 21:00 Ranolazine (Ranexa) 1,000 mg Q12 PO Last administered on 09/11/18 08:46; Admin Dose 1,000 MG; Start 09/10/18 at 09:00 Tramadol HCl (Ultram) 100 mg Q6 PRN PO PAIN Last administered on 09/11/18 08:46; Admin Dose 100 MG; Start 09/10/18 at 05:00 Valproic Acid (Depakene) 250 mg BID PO Last administered on 09/11/18at 08:46; Admin Dose 250 MG; Start 09/10/18 at 09:00 Fish Oil (Fish Oil) 2,000 mg BID PO Last administered on 09/11/18at 08:46; Admin Dose 2,000 MG; Start 09/10/18 at 09:00 Diagnostic Test (Pha) (Accu-Chek) 1 ea 02 XX ; Start 09/11/18 at 02:00 Insulin Aspart (Novolog Insulin Pen) NOVOLOG *MODERATE* ALGORITHM WITH MEALS BEDTIME SC Last administered on 09/11/18at 12:25; Admin Dose 2 UNIT; Start 09/10/18 at 07:55 Miscellaneous Information 1 ea NOTE XX ; Start 09/10/18 at 06:00 Glucose (Glutose) 15 gm Q15M PRN PO DECREASED GLUCOSE; Start 09/10/18 at 06:00 Glucose (Glutose) 22.5 gm Q15M PRN PO DECREASED GLUCOSE; Start 09/10/18 at 06:00 Dextrose (D50w Syringe) 25 ml Q15M PRN IV DECREASED GLUCOSE; Start 09/10/18 at 06:00 Dextrose (D50w Syringe) 50 ml Q15M PRN IV DECREASED GLUCOSE; Start 09/10/18 at 06:00 Glucagon (Glucagen) 1 mg Q15M PRN IM DECREASED GLUCOSE; Start 09/10/18 at 06:00 Glucose (Glutose) 15 gm Q15M PRN BUCCAL DECREASED GLUCOSE; Start 09/10/18 at 06:00 Sodium Chloride 1,000 ml @ 100 mls/hr Q10H IV Last administered on 09/11/18at 03:14; Admin Dose 100 MLS/HR; Start 09/10/18 at 15:30 Ceftriaxone Sodium 50 ml @ 100 mls/hr Q24H IVPB Last administered on 09/11/18at 15:06; Admin Dose 100 MLS/HR; Start 09/10/18 at 15:30 Azithromycin 250 ml @ 250 mls/hr Q24H IVPB Last administered on 09/10/18at 17:40; Admin Dose 250 MLS/HR; Start 09/10/18 at 15:30; Stop 09/11/18 at 19:00 Insulin Aspart (Novolog Insulin Pen) 11 unit WITH MEALS SC Last administered on 09/11/18at 12:26; Admin Dose 11 UNIT; Start 09/10/18 at 17:55 Insulin Glargine (Lantus) 32 units DAILY@0800 SC ; Start 09/11/18 at 08:00 Morphine Sulfate (morphine) 2 mg Q3H PRN IV SEVERE PAIN LEVEL 7-10 Last administered on 09/11/18at 14:21; Admin Dose 2 MG; Start 09/11/18 at 14:00 Azithromycin (Zithromax) 500 mg DAILY PO ; Start 09/12/18 at 09:00 BONNIE MONTILLA NP Sep 11, 2018 16:51
--- NOTE | 2018-09-11 17:03 | PN ---
Date/Time of Note Date/Time of Note DATE: 09/11/18 TIME: 17:01 Assessment/Plan VTE Prophylaxis Risk score (from Ns)>0 risk: 2 SCD applied (from Ns): Yes Pharmacological prophylaxis: heparin Lines/Catheters IV Catheter Type (from Nrs): Peripheral IV Urinary Cath still in place: No Assessment/Plan Hospital Course 1. Sepsis secondary bronchitis/developing pneumonia Rocephin and azithromycin Blood culture does show hemolytic strep IV fluids ID consultation appreciated 2. Acute respiratory distress secondary to bronchitis/pneumonia Continue IV antibiotics Continue supplemental oxygen 3. Type 1 diabetes with hyperglycemia-uncontrolled A1c at 11.8 Increased scheduled insulin relative to home dose, currently sugars are stable 4. Left inguinal lymphadenopathy and tenderness CT abdomen shows retroperitoneal , left iliac chain and left inguinal lymphadenopathy with largest lymph node measures 1.8 cm in the left inguinal region CT-guided needle biopsy has been done today, follow-up on pathology Oncology consultation with Dr. Rosales has been obtained 5. CKD Monitor 6. Ischemic cardiomyopathy (EF 45% in 2016) Continue home meds 7. Dyslipidemia Continue statin 8. Hypertension Hold home meds secondary to hypotension from sepsis Prophylaxis: Heparin DC planning: Not stable for DC, follow-up on lymph node biopsy results Result Diagram: 09/11/18 0540 09/11/18 0540 Results 24hrs Laboratory Tests Test 09/10/18 17:41 09/10/18 19:30 09/10/18 21:50 09/11/18 05:40 Bedside Glucose 183 114 Urine Eosinophils % 0.0 Urine Random 145.78 Creatinine Urine Random Sodium < 13 L Urine 3.77 Protein/Creatinine Ratio Urine Total Protein 551.0 H White Blood Count 9.2 # Red Blood Count 4.34 L Hemoglobin 10.7 L Hematocrit 34.4 L Mean Corpuscular 79.3 L Volume Mean Corpuscular 24.7 L Hemoglobin Mean Corpuscular 31.1 L Hemoglobin Concent Red Cell 16.4 H Distribution Width Platelet Count 153 Mean Platelet Volume 10.9 H Immature 0.500 H Granulocytes % Neutrophils % 66.6 Lymphocytes % 21.1 Monocytes % 9.8 Eosinophils % 1.6 Basophils % 0.4 Nucleated Red Blood 0.0 Cells % Immature 0.050 H Granulocytes # Neutrophils # 6.1 Lymphocytes # 1.9 Monocytes # 0.9 Eosinophils # 0.2 Basophils # 0.0 Nucleated Red Blood 0.0 Cells # Sodium Level 135 Potassium Level 4.6 Chloride Level 102 Carbon Dioxide Level 26 Anion Gap 7 Blood Urea Nitrogen 47 H Creatinine 1.93 H Est Glomerular 36 L Filtrat Rate mL/min Glucose Level 127 # Uric Acid 9.2 H Calcium Level 7.9 L Phosphorus Level 4.1 Magnesium Level 2.2 Lactate 831 H Dehydrogenase Creatine Kinase 39 Immunoglobulin A 166 Immunoglobulin G 473 L Immunoglobulin M 237 H Test 09/11/18 08:03 09/11/18 12:13 Bedside Glucose 196 174 Subjective 24 Hr Interval Summary Musculoskeletal: bone/joint pain Exam/Review of Systems Exam Vitals Vital Signs Date Temp Pulse Resp B/P (MAP) Pulse Ox O2 O2 Flow FiO2 Time Delivery Rate 09/11/18 84 16:15 09/11/18 98.2 18 112/61 95 Room Air 15:02 (78) 09/11/18 2.0 11:27 09/11/18 32 08:25 Intake and Output 09/10/18 09/10/18 09/11/18 1515:00 23:00 07:00 IntakeIntake Total 1250 ml 500 ml OutputOutput Total 800 ml 800 ml BalanceBalance 450 ml -300 ml Constitutional: alert, oriented Respiratory: clear to auscultation Cardiovascular: regular rate and rhythm Gastrointestinal: soft; No distended Musculoskeletal: nl extremities to inspection Results Results 24hrs Laboratory Tests Test 09/10/18 17:41 09/10/18 19:30 09/10/18 21:50 09/11/18 05:40 Bedside Glucose 183 114 Urine Eosinophils % 0.0 Urine Random 145.78 Creatinine Urine Random Sodium < 13 L Urine 3.77 Protein/Creatinine Ratio Urine Total Protein 551.0 H White Blood Count 9.2 # Red Blood Count 4.34 L Hemoglobin 10.7 L Hematocrit 34.4 L Mean Corpuscular 79.3 L Volume Mean Corpuscular 24.7 L Hemoglobin Mean Corpuscular 31.1 L Hemoglobin Concent Red Cell 16.4 H Distribution Width Platelet Count 153 Mean Platelet Volume 10.9 H Immature 0.500 H Granulocytes % Neutrophils % 66.6 Lymphocytes % 21.1 Monocytes % 9.8 Eosinophils % 1.6 Basophils % 0.4 Nucleated Red Blood 0.0 Cells % Immature 0.050 H Granulocytes # Neutrophils # 6.1 Lymphocytes # 1.9 Monocytes # 0.9 Eosinophils # 0.2 Basophils # 0.0 Nucleated Red Blood 0.0 Cells # Sodium Level 135 Potassium Level 4.6 Chloride Level 102 Carbon Dioxide Level 26 Anion Gap 7 Blood Urea Nitrogen 47 H Creatinine 1.93 H Est Glomerular 36 L Filtrat Rate mL/min Glucose Level 127 # Uric Acid 9.2 H Calcium Level 7.9 L Phosphorus Level 4.1 Magnesium Level 2.2 Lactate 831 H Dehydrogenase Creatine Kinase 39 Immunoglobulin A 166 Immunoglobulin G 473 L Immunoglobulin M 237 H Test 09/11/18 08:03 09/11/18 12:13 Bedside Glucose 196 174 Medications Medication Current Medications IV Flush (NS 3 ml) 3 ml PER PROTOCOL IV ; Start 09/10/18 at 05:00 Ondansetron HCl (Zofran Inj) 4 mg Q6H PRN IV NAUSEA/VOMITING Last administered on 09/10/18 09:43; Admin Dose 4 MG; Start 09/10/18 at 05:00 Nitroglycerin (Nitroglycerin (Sl Tab) 0.4 Mg) 1 tab Q5M PRN SL .CHEST PAIN; Start 09/10/18 at 05:00 Acetaminophen (Tylenol Tab) 650 mg Q6H PRN PO .PAIN 1-3 OR TEMP Last administered on 09/10/18 12:23; Admin Dose 650 MG; Start 09/10/18 at 05:00 Heparin Sodium (Porcine) (Heparin (5000 Units/1ml)) 5,000 unit Q12 SC Last administered on 09/10/18at 21:56; Admin Dose 5,000 UNIT; Start 09/10/18 at 09:00 Albuterol/ Ipratropium (Duoneb) 3 ml Q2H RESP THERAPY PRN HHN SHORTNESS OF BREATH Last administered on 09/10/18at 08:40; Admin Dose 3 ML; Start 09/10/18 at 05:00 Alprazolam (Xanax) 0.5 mg TID PRN PO ANXIETY; Start 09/10/18 at 05:00 Aspirin (Aspirin) 81 mg DAILY PO Last administered on 09/11/18at 08:45; Admin Dose 81 MG; Start 09/10/18 at 09:00 Atorvastatin Calcium (Lipitor) 80 mg HS PO Last administered on 09/10/18 21:45; Admin Dose 80 MG; Start 09/10/18 at 21:00 Carvedilol (Coreg) 6.25 mg BID PO Last administered on 09/11/18 08:47; Admin Dose 6.25 MG; Start 09/10/18 at 09:00 Furosemide (Lasix) 40 mg DAILY PO Last administered on 09/11/18 08:46; Admin Dose 40 MG; Start 09/10/18 at 09:00 Gabapentin (Neurontin) 300 mg TID PO Last administered on 09/11/18 12:11; Admin Dose 300 MG; Start 09/10/18 at 09:00 Hydralazine HCl (Apresoline) 10 mg Q12 PO Last administered on 09/10/18 08:57; Admin Dose 10 MG; Start 09/10/18 at 09:00 Isosorbide Dinitrate (Isordil) 20 mg TID PO Last administered on 09/11/18 12:11; Admin Dose 20 MG; Start 09/10/18 at 09:00 Montelukast Sodium (Singulair) 10 mg HS PO Last administered on 09/10/18 21:46; Admin Dose 10 MG; Start 09/10/18 at 21:00 Ranolazine (Ranexa) 1,000 mg Q12 PO Last administered on 09/11/18 08:46; Admin Dose 1,000 MG; Start 09/10/18 at 09:00 Tramadol HCl (Ultram) 100 mg Q6 PRN PO PAIN Last administered on 09/11/18 08:46; Admin Dose 100 MG; Start 09/10/18 at 05:00 Valproic Acid (Depakene) 250 mg BID PO Last administered on 09/11/18 08:46; Admin Dose 250 MG; Start 09/10/18 at 09:00 Fish Oil (Fish Oil) 2,000 mg BID PO Last administered on 09/11/18 08:46; Admin Dose 2,000 MG; Start 09/10/18 at 09:00 Diagnostic Test (Pha) (Accu-Chek) 1 ea 02 XX ; Start 09/11/18 at 02:00 Insulin Aspart (Novolog Insulin Pen) NOVOLOG *MODERATE* ALGORITHM WITH MEALS BEDTIME SC Last administered on 09/11/18 12:25; Admin Dose 2 UNIT; Start 09/10/18 at 07:55 Miscellaneous Information 1 ea NOTE XX ; Start 09/10/18 at 06:00 Glucose (Glutose) 15 gm Q15M PRN PO DECREASED GLUCOSE; Start 09/10/18 at 06:00 Glucose (Glutose) 22.5 gm Q15M PRN PO DECREASED GLUCOSE; Start 09/10/18 at 06:00 Dextrose (D50w Syringe) 25 ml Q15M PRN IV DECREASED GLUCOSE; Start 09/10/18 at 06:00 Dextrose (D50w Syringe) 50 ml Q15M PRN IV DECREASED GLUCOSE; Start 09/10/18 at 06:00 Glucagon (Glucagen) 1 mg Q15M PRN IM DECREASED GLUCOSE; Start 09/10/18 at 06:00 Glucose (Glutose) 15 gm Q15M PRN BUCCAL DECREASED GLUCOSE; Start 09/10/18 at 06:00 Sodium Chloride 1,000 ml @ 100 mls/hr Q10H IV Last administered on 09/11/18at 03:14; Admin Dose 100 MLS/HR; Start 09/10/18 at 15:30 Ceftriaxone Sodium 50 ml @ 100 mls/hr Q24H IVPB Last administered on 09/11/18at 15:06; Admin Dose 100 MLS/HR; Start 09/10/18 at 15:30 Azithromycin 250 ml @ 250 mls/hr Q24H IVPB Last administered on 09/10/18at 17:40; Admin Dose 250 MLS/HR; Start 09/10/18 at 15:30; Stop 09/11/18 at 19:00 Insulin Aspart (Novolog Insulin Pen) 11 unit WITH MEALS SC Last administered on 09/11/18at 12:26; Admin Dose 11 UNIT; Start 09/10/18 at 17:55 Insulin Glargine (Lantus) 32 units DAILY@0800 SC ; Start 09/11/18 at 08:00 Morphine Sulfate (morphine) 2 mg Q3H PRN IV SEVERE PAIN LEVEL 7-10 Last admini stered on 09/11/18at 14:21; Admin Dose 2 MG; Start 09/11/18 at 14:00 Azithromycin (Zithromax) 500 mg DAILY PO ; Start 09/12/18 at 09:00 BRANDON WHITNEY Sep 11, 2018 17:03
[2018-09-11] MEDS: AZITHROMYCIN 500MG/NS (PMX) 250 ML IVPB SCH (17:38)
--- NOTE | 2018-09-11 18:13 | CONS ---
DATE OF ADMISSION: 09/09/2018 DATE OF CONSULTATION: 09/11/2018 TYPE OF CONSULTATION: Hematology-oncology. PHYSICIAN REQUESTING CONSULTATION: Larry Kc MD REASON FOR CONSULTATION: Lymphadenopathy. Dear Dr. Kc: Thank you very much for asking me to see this very pleasant gentleman in hematologic and oncologic co nsultation. HISTORY OF PRESENT ILLNESS: As you know, Mr. Reynolds is a 57-year-old male who was admitted to [facility] on 09/09/2018. The patient presented to the emergency room with complaints o f sudden onset of abdominal pain, nausea and vomiting and shaking chills. He states this started aft er lunch. The patient, as mentioned, was seen in the emergency room. On admission, his white count was , hemoglobin was 13.3, hematocrit 41.8 and platelet count 188,000. On admission, the patient had temperature of 101.6, pulse was 97, respirations 26, blood pressure 108 /71, pulse oximetry was 96% on room air. On admission, a chest x-ray was done which showed mild cardiomegaly which was stable. There were danna e increased interstitial markings. A CT scan of the abdomen and pelvis was done which did show some retroperitoneal, left iliac and left inguinal lymphadenopathy. The largest lymph node measured 1.8 c m in the left inguinal region. There was also mild splenomegaly with the spleen measuring 14.5 cm. This apparently was also seen on a CT scan done 2 years ago. There was no mediastinal or hilar adeno jaison noted. Blood cultures obtained on admission grew beta hemolytic Strep in 1 blood culture. The patient is pr esently on azithromycin, ceftriaxone. Apparently, he was also on vancomycin. This has been disconti nued. Other laboratory includes a chemistry panel which on admission revealed a sodium 137, potassium 4.6, BUN 38, creatinine 1.31. Total bilirubin 0.2, direct bilirubin 0, AST 59, ALT 40, alkaline phosphata se was 183. Troponin 1 was 0.018. BNP is 2490. Total protein was 7 and albumin was 3.8. PAST MEDICAL HISTORY: Extensive. The patient does have a history of hypertension as well as diabete s and hyperlipidemia. Other medical problems include ischemic cardiomyopathy. The patient's ejection fraction on admission at this time is 45% to 50%. The patient also has a history of COPD, has had coronary artery disease and has had multiple stents placed. The patient also in the past has had a history of herpes zoster as well as Legionella pneumonia. PAST SURGICAL HISTORY: The patient surgeries in the past have included lithotripsy, cholecystectomy. MEDICATIONS ON ADMISSION: Include: 1. Valproic acid 250 mg b.i.d. 2. Tramadol 100 mg q.6 hours p.r.n. pain. 3. Acyclovir 800 mg 5 times daily. 4. Cephalexin 500 mg q.8 hours. MEDICATIONS AT HOME: Included: 1. Nitroglycerin p.r.n. 2. DuoNeb. 3. Alprazolam. 4. Aspirin. 5. Atorvastatin. 6. Carvedilol. 7. Furosemide. 8. Gabapentin. 9. Hydralazine. 10. Isordil. 11. Singulair. 12. Ranexa. 13. Tramadol. 14. Valproic acid. ALLERGIES: THE PATIENT HAS NO KNOWN ALLERGIES. FAMILY HISTORY: Significant for heart disease. SOCIAL HISTORY: The patient states he was a smoker, somewhat unclear about how long ago he stopped s moking. Denies alcohol or other drug use. He has not knowingly been exposed to any industrial toxin s or ionizing radiation. PHYSICAL EXAMINATION: GENERAL: At this time reveals a well-developed, obese male who is no acute distress. VITAL SIGNS: Temperature 98.2 orally, pulse 84 per minute, regular, respirations 18, blood pressure 112/61, pulse oximetry 95% on 2 liters by nasal oxygen. SKIN: No ecchymosis, no petechiae or rashes. HEENT: Normocephalic. No evidence of trauma. Pupils are equal, round, reactive to light and accomm odation. There is no scleral icterus. Oral mucosa is moist without lesions. NECK: Supple. There is no jugular venous distention or thyroid enlargement. CHEST: Increased AP diameter with decreased breath sounds throughout. There are some right basilar rales which do not clear with cough or deep inspiration. HEART: Regular sinus rhythm. No S3, S4 or murmurs. ABDOMEN: Obese and distended, but soft. There is no tenderness. EXTREMITIES: Good range of motion. No clubbing or cyanosis. There is tenderness however on palpati on of the entire left lower extremity particularly near the inguinal ligament. There is erythema in this area and warmth to the touch. No palpable cords or Homans sign. NEUROLOGIC: Appears normal. NODES: There is a palpable node in the lateral left inguinal area which has been biopsied and is ten bren to touch. The peripheral blood has been reviewed. Red blood cell morphology is normal except for some mild maximino rocytosis. There are no fragmented red blood cells, no spherocytes, no nucleated red blood cells. W shannon blood cells are normal in morphology and distribution. There are no immature granulocytes, no h ypersegmented polys, no nucleated red blood cells. The lymphocytes appear normal in number and appea nir. There are no atypical or "reactive" lymphocytes. Platelets are normal in number and morpholo gy. DISCUSSION: This patient does have some borderline lymphadenopathy. As noted, the largest lymph nod e is in the right inguinal area. A core needle biopsy has been performed today. The patient does have complaint of pain in the entire left lower extremity. No palpable cords. Ther e is erythema and warmth to the touch in the more proximal left lower extremity extending below the i nguinal ligament by approximately 8 cm. This apparently was present prior to the biopsy and prior to admission. Certainly, this type of lymphadenopathy must be considered to be a possible malignant process most li john a lymphoproliferative disorder. This patient does have a recent history of herpes zoster and legionella pneumonia. This suggests danna e degree of immunodeficiency. As noted, the lymph node has been biopsied and I feel also should be cultured. We will request a serum protein electrophoresis, immunofixation, quantitative immunoglobulins, LDH an d a beta 2 microglobulin. The latter however would likely be elevated due to the patient's renal dys function. As noted, the patient does have tenderness in the entire left lower extremity. There is no lymphedem a and there are no palpable cords or Homans sign. I will request a venous Doppler study of the lower extremities however. Any further recommendations regarding diagnoses or treatment will await the results of today's lymph node biopsy. Dictated By: GEORGE VO MD SR/NTS Conf#: [id number] DID#: [id number] CC: LARRY KC MD; DENNIS LEWIS MD; DERIK LOVE MD;*[facility]*
[2018-09-11] MEDS: MONTELUKAST 10 MG TAB PO SCH (20:15)
[2018-09-11] MEDS: ATORVASTATIN 80 MG TAB PO SCH (20:16)
[2018-09-12] VITALS (10 sets, daily range): BP systolic 113–166; BP diastolic 61–79; PULSE 78–94; RESP 18–20
[2018-09-12] MEDS ORDERED: VANCOMYCIN IV PER PHARMACY XX SCH (02:30)
[2018-09-12] MEDS: ACCU-CHEK XX SCH (02:36)
[2018-09-12] MEDS: VANCOMYCIN HCL 1.5 GM in SOD CHLORIDE 0.9% 250 ML IVPB SCH (03:37)
[2018-09-12] MEDS: morphine 2 MG INJ IV PRN ×4 (03:43→20:34)
[2018-09-12] MEDS: SOD CHLORIDE 0.9% 1,000 ML IV SCH ×2 (07:30→16:30)
[2018-09-12] MEDS: INSULIN ASPART [NOVOLOG] 3 ML PEN SC SCH ×6 (08:15→20:33)
[2018-09-12] MEDS: FUROSEMIDE 40 MG TAB PO SCH (08:22)
[2018-09-12] MEDS: FISH OIL 1,000 MG CAP PO SCH ×2 (08:22→20:20)
[2018-09-12] MEDS: ASPIRIN 81 MG TAB PO SCH (08:23)
[2018-09-12] MEDS: ISOSORBIDE DINITRATE 20 MG TAB PO SCH ×3 (08:23→20:22)
[2018-09-12] MEDS: GABAPENTIN 300 MG CAP PO SCH ×3 (08:23→20:21)
[2018-09-12] MEDS: RANOLAZINE (SR) 500 MG TAB PO SCH ×2 (08:23→20:21)
[2018-09-12] MEDS: VALPROIC ACID 250 MG CAP PO SCH ×2 (08:23→20:20)
[2018-09-12] MEDS: INSULIN GLARGINE [LANTus] (100 UNITS/ML) SYG SC SCH (08:47)
[2018-09-12] MEDS: HEPARIN 5,000 UNIT/1 ML VIAL SC SCH ×2 (08:47→20:24)
[2018-09-12] MEDS ORDERED: AZITHROMYCIN 250 MG TAB PO SCH (09:00)
--- NOTE | 2018-09-12 09:48 | PN ---
DATE: 09/12/2018 SUBJECTIVE: The patient still is experiencing pain in the proximal left lower extremity. He has had no further fevers or chills. He has not had any complaints of abdominal pain. OBJECTIVE: GENERAL: The patient is a well-developed, obese male, who is in no acute distress. VITAL SIGNS: Temperature 98.4, pulse 88 per minute and regular, respirations 20, blood pressure 133/ 68, pulse oximetry 94% on 2 liters of oxygen via nasal cannula. SKIN: No ecchymosis, no petechiae or rashes. HEENT: Normocephalic. No evidence of trauma. Pupils are equal, round, reactive to light and accomm odation. Sclerae are nonicteric. Oral mucosa is moist without lesions. Tongue is well papillated. No gingival hyperplasia, no hypertrophy of Waldeyer's ring. There is nasal oxygen in place. NECK: Supple. No jugular venous distention or thyroid enlargement. No carotid bruits. CHEST: Clear to auscultation and percussion except for some occasional bibasilar rales, which clear on cough. There is no pain on percussion of spine, sternum, clavicles or ribs. HEART: Regular sinus rhythm, no S3, S4 or murmurs. No rubs. ABDOMEN: Obese. There are no masses or ascites. Bowel sounds are active. No hernia defects. EXTREMITIES: No clubbing or cyanosis. There is erythema in the medial proximal right lower extremit y below the inguinal ligament. It is warm to the touch. It is tender. There is also lymphadenopath y in inguinal area. No palpable cords or Homans sign. NEUROLOGIC: Normal. IMAGING STUDY: A venous ultrasound of lower extremities has been obtained. This demonstrates no jessica dence of deep vein thrombosis, but there is mild prominent left inguinal lymph nodes. HIV antibodies are negative. LABORATORY DATA: IgG slightly decreased at 473, IgA is 166. IgM minimally elevated 273. Immunofixa tion is pending. The LDH is elevated at 831, and uric acid is elevated at 9.2. Flow cytometry from needle biopsy of left inguinal lymph node does not show any immunologic abnormali ties. There is no indication of a monoclonal B cell or any other abnormal lymphocyte population. ASSESSMENT: 1. Left inguinal lymphadenopathy. 2. Diabetes type 1. 3. Chronic obstructive pulmonary disease. 4. Gram positive sepsis. 5. Ischemic cardiomyopathy. 6. Hypertension. PLAN: As noted, the full cytometry of needle biopsy does not show any atypical or malignant appearin g lymphocyte population. Must wait, however, for the final pathology to determine whether or not the re may actually be metastatic carcinoma or lymphomatous process. A negative needle biopsy does not rule out abnormality and ultimately it may be necessary to do an ex cisional biopsy. I do feel, however, that it is more likely that left inguinal lymphadenopathy is inflammatory given t he erythema and warmth to the touch of the more distal area of the left side below the inguinal ligam ent. The patient should continue on present antibiotic therapy. If there is no improvement, then an excis ional biopsy may be necessary. Dictated By: GEORGE VO MD SR/NTS Conf#: [id number] DID#: [id number] CC: DENNIS LEWIS MD; BRANDON WHITNEY MD; DERIK LOVE MD;*End*
--- NOTE | 2018-09-12 11:46 | CONS ---
Assessment/Plan Assessment/Plan Assessment/Plan (Daily) 1. acute kidney injury due to ATN From pneumonia 2. sepsis due to pneumonia 3. pneumonia, worried about community acquired PNA 4. h/o HTn 5. h/o Myocardial infarction 6. h/o Lithotripsy before for left kidney stone Plan: s/p US guided left groin LN biopsy today BUN/Cr 45/1.96, Bp stable IV abx for PNA and Sepsis, renally dose all abx and monitor electrolytes will follow up Consultation Date/Type/Reason Admit Date/Time Sep 09, 2018 at 21:23 Initial Consult Date 09/10/18 Type of Consult NEPHROLOGY Requesting Provider: DERIK LOVE MD Date/Time of Note DATE: 09/12/18 TIME: 11:46 Exam/Review of Systems Exam Vitals Vital Signs Date Temp Pulse Resp B/P (MAP) Pulse Ox O2 O2 Flow FiO2 Time Delivery Rate 09/12/18 98.1 83 20 113/61 95 Nasal 11:07 (78) Cannula 09/12/18 2.0 07:53 09/12/18 32 04:22 Intake and Output 09/11/18 09/11/18 09/12/18 1414:59 22:59 06:59 IntakeIntake Total 1970 ml 1750 ml OutputOutput Total 900 ml BalanceBalance 1970 ml 850 ml Exam Constitutional: alert, awake, Respiratory: diminished breath sounds, other (RLL Crackles ) Cardiovascular: regular rate and rhythm Gastrointestinal: soft, non-tender Musculoskeletal: nl extremities to inspection Extremities: normal pulses 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: LOCKET MAKER II-XII intact, nl mental status, nl speech, nl strength Results Result Diagram: 09/11/18 0540 09/12/18 0622 Results 24hrs Laboratory Tests Test 09/11/18 12:13 09/11/18 15:14 09/11/18 15:19 09/11/18 17:38 Bedside Glucose 174 179 HIV (1&2) Antibody NEGATIVE Total Protein (PEP) 5.3 L Albumin (PEP) Pending Ccbny-8-Yossuhopy Pending Trgps-7-Ynnboknue Pending Beta Globulins Pending Irez-3-Ujvpqclqytzus Pending Gamma Globulins Pending Protein Pending Electrophoresis Inte rpret Serum Immunofixation Pending Test 09/11/18 20:33 09/12/18 02:31 09/12/18 06:22 09/12/18 08:01 Bedside Glucose 227 H 197 219 Sodium Level 137 Potassium Level 5.0 Chloride Level 104 Carbon Dioxide Level 24 Anion Gap 9 Blood Urea Nitrogen 45 H Creatinine 1.96 H Est Glomerular 35 L Filtrat Rate mL/min Glucose Level 200 Calcium Level 8.0 L Test 09/12/18 11:37 Bedside Glucose 213 Medications Medication Current Medications IV Flush (NS 3 ml) 3 ml PER PROTOCOL IV ; Start 09/10/18 at 05:00 Ondansetron HCl (Zofran Inj) 4 mg Q6H PRN IV NAUSEA/VOMITING Last administered on 09/10/18 09:43; Admin Dose 4 MG; Start 09/10/18 at 05:00 Nitroglycerin (Nitroglycerin (Sl Tab) 0.4 Mg) 1 tab Q5M PRN SL .CHEST PAIN; Start 09/10/18 at 05:00 Acetaminophen (Tylenol Tab) 650 mg Q6H PRN PO .PAIN 1-3 OR TEMP Last administered on 09/10/18at 12:23; Admin Dose 650 MG; Start 09/10/18 at 05:00 Heparin Sodium (Porcine) (Heparin (5000 Units/1ml)) 5,000 unit Q12 SC Last administered on 09/12/18 08:47; Admin Dose 5,000 UNIT; Start 09/10/18 at 09:00 Albuterol/ Ipratropium (Duoneb) 3 ml Q2H RESP THERAPY PRN HHN SHORTNESS OF BREATH Last administered on 09/10/18at 08:40; Admin Dose 3 ML; Start 09/10/18 at 05:00 Alprazolam (Xanax) 0.5 mg TID PRN PO ANXIETY; Start 09/10/18 at 05:00 Aspirin (Aspirin) 81 mg DAILY PO Last administered on 09/12/18 08:23; Admin Dose 81 MG; Start 09/10/18 at 09:00 Atorvastatin Calcium (Lipitor) 80 mg HS PO Last administered on 09/11/18 20:16; Admin Dose 80 MG; Start 09/10/18 at 21:00 Carvedilol (Coreg) 6.25 mg BID PO Last administered on 09/12/18 08:22; Admin Dose 6.25 MG; Start 09/10/18 at 09:00 Furosemide (Lasix) 40 mg DAILY PO Last administered on 09/12/18 08:22; Admin Dose 40 MG; Start 09/10/18 at 09:00 Gabapentin (Neurontin) 300 mg TID PO Last administered on 09/12/18 08:23; Admin Dose 300 MG; Start 09/10/18 at 09:00 Hydralazine HCl (Apresoline) 10 mg Q12 PO Last administered on 09/12/18 08:24; Admin Dose 10 MG; Start 09/10/18 at 09:00 Isosorbide Dinitrate (Isordil) 20 mg TID PO Last administered on 09/12/18 08:23; Admin Dose 20 MG; Start 09/10/18 at 09:00 Montelukast Sodium (Singulair) 10 mg HS PO Last administered on 09/11/18 20:15; Admin Dose 10 MG; Start 09/10/18 at 21:00 Ranolazine (Ranexa) 1,000 mg Q12 PO Last administered on 09/12/18 08:23; Admin Dose 1,000 MG; Start 09/10/18 at 09:00 Tramadol HCl (Ultram) 100 mg Q6 PRN PO PAIN Last administered on 09/11/18 08:46; Admin Dose 100 MG; Start 09/10/18 at 05:00 Valproic Acid (Depakene) 250 mg BID PO Last administered on 09/12/18 08:23; Admin Dose 250 MG; Start 09/10/18 at 09:00 Fish Oil (Fish Oil) 2,000 mg BID PO Last administered on 09/12/18 08:22; Admin Dose 2,000 MG; Start 09/10/18 at 09:00 Diagnostic Test (Pha) (Accu-Chek) 1 ea 02 XX Last administered on 09/12/18 02:36; Admin Dose 1 EA; Start 09/11/18 at 02:00 Insulin Aspart (Novolog Insulin Pen) NOVOLOG *MODERATE* ALGORITHM WITH MEALS BEDTIME SC Last administered on 09/12/18 08:15; Admin Dose 4 UNIT; Start 09/10/18 at 07:55 Miscellaneous Information 1 ea NOTE XX ; Start 09/10/18 at 06:00 Glucose (Glutose) 15 gm Q15M PRN PO DECREASED GLUCOSE; Start 09/10/18 at 06:00 Glucose (Glutose) 22.5 gm Q15M PRN PO DECREASED GLUCOSE; Start 09/10/18 at 06:00 Dextrose (D50w Syringe) 25 ml Q15M PRN IV DECREASED GLUCOSE; Start 09/10/18 at 06:00 Dextrose (D50w Syringe) 50 ml Q15M PRN IV DECREASED GLUCOSE; Start 09/10/18 at 06:00 Glucagon (Glucagen) 1 mg Q15M PRN IM DECREASED GLUCOSE; Start 09/10/18 at 06:00 Glucose (Glutose) 15 gm Q15M PRN BUCCAL DECREASED GLUCOSE; Start 09/10/18 at 06:00 Sodium Chloride 1,000 ml @ 100 mls/hr Q10H IV Last administered on 09/11/18at 20:35; Admin Dose 100 MLS/HR; Start 09/10/18 at 15:30 Ceftriaxone Sodium 50 ml @ 100 mls/hr Q24H IVPB Last administered on 09/11/18at 15:06; Admin Dose 100 MLS/HR; Start 09/10/18 at 15:30 Morphine Sulfate (morphine) 2 mg Q3H PRN IV SEVERE PAIN LEVEL 7-10 Last administered on 09/12/18at 08:25; Admin Dose 2 MG; Start 09/11/18 at 14:00 Vancomycin HCl (Vanco Iv Per Pharmacy) VANCOMYCIN PER PHARMACY PER PROTOCOL XX ; Start 09/12/18 at 02:30 Vancomycin HCl 1.5 gm/Sodium Chloride 250 ml @ 83.333 mls/ hr Q24H IVPB Last administered on 09/12/18at 03:37; Admin Dose 83.333 MLS/HR; Start 09/12/18 at 03:00 Insulin Aspart (Novolog Insulin Pen) 12 unit WITH MEALS SC ; Start 09/12/18 at 11:50 Insulin Glargine (Lantus) 36 units DAILY@0800 SC ; Start 09/13/18 at 08:00 ANDREW BOWLING MD Sep 12, 2018 11:46
[2018-09-12] MEDS ORDERED: INSULIN ASPART [NOVOLOG] 3 ML PEN SC SCH (11:50)
--- NOTE | 2018-09-12 13:08 | CONS ---
Assessment/Plan Assessment/Plan Hospital Course (Demo Recall) No acute events, looks comfortable, no fevers Microbiology: Blood culture on admission grew beta-hemolytic strep species CT of the abdomen and pelvis on admission revealed retroperitoneal left iliac chain and left inguinal lymphadenopathy with largest lymph node measures 1.5 cm in the left inguinal region. Moderate diffuse peribronchial thickening suggestive of bronchitis with likely superimposed mass mild interstitial edema. Splenomegaly, unchanged since 2017 CT. Antimicrobials: Zithromax Rocephin Physical examination: Well-nourished well-developed middle-aged [place]an-speaking man who is alert in no distress. Head atraumatic normocephalic. Neck is supple. Chest rise symmetrical, breath sounds diminished bases. Heart: S1-S2. Abdomen distended soft bowel sounds present. Extremities without cyanosis, tenterness, warmth and mild erythema L groin area. Assessment: 1. Sepsis present on admission 2. Beta-hemolytic strep bacteremia likely pulmonary source 3. Streptococcal pneumonia 4. Lymphadenopathy status post left groin lymph node biopsy 5. Acute kidney failure 6. Diabetes 7. Ischemic cardiomyopathy 7. Obesity Plan: Patient is stable, 2D echo revealed no vegetations, continue on current antibiotics, f/u repeat blood cultures. Oncology rec-s noted. CXR in am Consultation Date/Type/Reason Admit Date/Time Sep 09, 2018 at 21:23 Initial Consult Date 09/10/18 Type of Consult id Requesting Provider: DERIK LOVE MD Date/Time of Note DATE: 09/12/18 TIME: 13:06 Exam/Review of Systems Exam Vitals Vital Signs Date Temp Pulse Resp B/P (MAP) Pulse Ox O2 O2 Flow FiO2 Time Delivery Rate 09/12/18 82 12:00 09/12/18 98.1 20 113/61 95 Nasal 11:07 (78) Cannula 09/12/18 2.0 07:53 09/12/18 32 04:22 Intake and Output 09/11/18 09/11/18 09/12/18 1515:00 23:00 07:00 IntakeIntake Total 1970 ml 1750 ml OutputOutput Total 900 ml BalanceBalance 1970 ml 850 ml Results Result Diagram: 09/11/18 0540 09/12/18 0622 Results 24hrs Laboratory Tests Test 09/11/18 15:14 09/11/18 15:19 09/11/18 17:38 09/11/18 20:33 HIV (1&2) Antibody NEGATIVE Total Protein (PEP) 5.3 L Albumin (PEP) Pending Wtzdz-5-Xicimzhuh Pending Ziams-8-Mgnlooilt Pending Beta Globulins Pending Diuo-0-Jbvugoubvxajs Pending Gamma Globulins Pending Protein Pending Electrophoresis Inte rpret Serum Immunofixation Pending Bedside Glucose 179 227 H Test 09/12/18 02:31 09/12/18 06:22 09/12/18 08:01 09/12/18 11:37 Bedside Glucose 197 219 213 Sodium Level 137 Potassium Level 5.0 Chloride Level 104 Carbon Dioxide Level 24 Anion Gap 9 Blood Urea Nitrogen 45 H Creatinine 1.96 H Est Glomerular 35 L Filtrat Rate mL/min Glucose Level 200 Calcium Level 8.0 L Medications Medication Current Medications IV Flush (NS 3 ml) 3 ml PER PROTOCOL IV ; Start 09/10/18 at 05:00 Ondansetron HCl (Zofran Inj) 4 mg Q6H PRN IV NAUSEA/VOMITING Last administered on 09/10/18at 09:43; Admin Dose 4 MG; Start 09/10/18 at 05:00 Nitroglycerin (Nitroglycerin (Sl Tab) 0.4 Mg) 1 tab Q5M PRN SL .CHEST PAIN; Start 09/10/18 at 05:00 Acetaminophen (Tylenol Tab) 650 mg Q6H PRN PO .PAIN 1-3 OR TEMP Last administered on 09/10/18at 12:23; Admin Dose 650 MG; Start 09/10/18 at 05:00 Heparin Sodium (Porcine) (Heparin (5000 Units/1ml)) 5,000 unit Q12 SC Last administered on 09/12/18at 08:47; Admin Dose 5,000 UNIT; Start 09/10/18 at 09:00 Albuterol/ Ipratropium (Duoneb) 3 ml Q2H RESP THERAPY PRN HHN SHORTNESS OF BREATH Last administered on 09/10/18 08:40; Admin Dose 3 ML; Start 09/10/18 at 05:00 Alprazolam (Xanax) 0.5 mg TID PRN PO ANXIETY; Start 09/10/18 at 05:00 Aspirin (Aspirin) 81 mg DAILY PO Last administered on 09/12/18 08:23; Admin Dose 81 MG; Start 09/10/18 at 09:00 Atorvastatin Calcium (Lipitor) 80 mg HS PO Last administered on 09/11/18 20:16; Admin Dose 80 MG; Start 09/10/18 at 21:00 Carvedilol (Coreg) 6.25 mg BID PO Last administered on 09/12/18 08:22; Admin Dose 6.25 MG; Start 09/10/18 at 09:00 Furosemide (Lasix) 40 mg DAILY PO Last administered on 09/12/18 08:22; Admin Dose 40 MG; Start 09/10/18 at 09:00 Gabapentin (Neurontin) 300 mg TID PO Last administered on 09/12/18 12:00; Admin Dose 300 MG; Start 09/10/18 at 09:00 Hydralazine HCl (Apresoline) 10 mg Q12 PO Last administered on 09/12/18 08:24; Admin Dose 10 MG; Start 09/10/18 at 09:00 Isosorbide Dinitrate (Isordil) 20 mg TID PO Last administered on 09/12/18 08:23; Admin Dose 20 MG; Start 09/10/18 at 09:00 Montelukast Sodium (Singulair) 10 mg HS PO Last administered on 09/11/18 20:15; Admin Dose 10 MG; Start 09/10/18 at 21:00 Ranolazine (Ranexa) 1,000 mg Q12 PO Last administered on 09/12/18 08:23; Admin Dose 1,000 MG; Start 09/10/18 at 09:00 Tramadol HCl (Ultram) 100 mg Q6 PRN PO PAIN Last administered on 09/11/18 08:46; Admin Dose 100 MG; Start 09/10/18 at 05:00 Valproic Acid (Depakene) 250 mg BID PO Last administered on 09/12/18 08:23; Admin Dose 250 MG; Start 09/10/18 at 09:00 Fish Oil (Fish Oil) 2,000 mg BID PO Last administered on 09/12/18 08:22; Admin Dose 2,000 MG; Start 09/10/18 at 09:00 Diagnostic Test (Pha) (Accu-Chek) 1 ea 02 XX Last administered on 09/12/18 02:36; Admin Dose 1 EA; Start 09/11/18 at 02:00 Insulin Aspart (Novolog Insulin Pen) NOVOLOG *MODERATE* ALGORITHM WITH MEALS BEDTIME SC Last administered on 09/12/18at 11:46; Admin Dose 4 UNIT; Start 09/10/18 at 07:55 Miscellaneous Information 1 ea NOTE XX ; Start 09/10/18 at 06:00 Glucose (Glutose) 15 gm Q15M PRN PO DECREASED GLUCOSE; Start 09/10/18 at 06:00 Glucose (Glutose) 22.5 gm Q15M PRN PO DECREASED GLUCOSE; Start 09/10/18 at 06:00 Dextrose (D50w Syringe) 25 ml Q15M PRN IV DECREASED GLUCOSE; Start 09/10/18 at 06:00 Dextrose (D50w Syringe) 50 ml Q15M PRN IV DECREASED GLUCOSE; Start 09/10/18 at 06:00 Glucagon (Glucagen) 1 mg Q15M PRN IM DECREASED GLUCOSE; Start 09/10/18 at 06:00 Glucose (Glutose) 15 gm Q15M PRN BUCCAL DECREASED GLUCOSE; Start 09/10/18 at 06:00 Sodium Chloride 1,000 ml @ 100 mls/hr Q10H IV Last administered on 09/11/18at 20:35; Admin Dose 100 MLS/HR; Start 09/10/18 at 15:30 Ceftriaxone Sodium 50 ml @ 100 mls/hr Q24H IVPB Last administered on 09/11/18at 15:06; Admin Dose 100 MLS/HR; Start 09/10/18 at 15:30 Morphine Sulfate (morphine) 2 mg Q3H PRN IV SEVERE PAIN LEVEL 7-10 Last administered on 09/12/18at 08:25; Admin Dose 2 MG; Start 09/11/18 at 14:00 Vancomycin HCl (Vanco Iv Per Pharmacy) VANCOMYCIN PER PHARMACY PER PROTOCOL XX ; Start 09/12/18 at 02:30 Vancomycin HCl 1.5 gm/Sodium Chloride 250 ml @ 83.333 mls/ hr Q24H IVPB Last administered on 09/12/18at 03:37; Admin Dose 83.333 MLS/HR; Start 09/12/18 at 03:00 Insulin Aspart (Novolog Insulin Pen) 12 unit WITH MEALS SC Last administered on 09/12/18at 11:46; Admin Dose 12 UNIT; Start 09/12/18 at 11:50 Insulin Glargine (Lantus) 36 units DAILY@0800 SC ; Start 09/13/18 at 08:00 BONNIE MONTILLA NP Sep 12, 2018 13:08
[2018-09-12] MEDS: CEFTRIAXONE 1 GM/50 ML (PMX) 50 ML IVPB SCH (14:40)
--- NOTE | 2018-09-12 15:56 | PN ---
Date/Time of Note Date/Time of Note DATE: 09/12/18 TIME: 15:51 Assessment/Plan VTE Prophylaxis Risk score (from Ns)>0 risk: 2 SCD applied (from Ns): Yes Pharmacological prophylaxis: heparin Lines/Catheters IV Catheter Type (from Nrsg): Peripheral IV Urinary Cath still in place: No Assessment/Plan Hospital Course 1. Sepsis secondary bronchitis/developing pneumonia and/or left lower extremity infection Rocephin and azithromycin Blood culture does show hemolytic strep Echo shows no vegetations IV fluids ID consultation appreciated 2. Acute respiratory distress secondary to bronchitis/pneumonia Continue IV antibiotics Continue supplemental oxygen 3. Type 1 diabetes with hyperglycemia-uncontrolled A1c at 11.8 Increased scheduled mealtime and basal insulin once again 4. Left inguinal lymphadenopathy and tenderness CT abdomen shows retroperitoneal , left iliac chain and left inguinal lymphadenopathy with largest lymph node measures 1.8 cm in the left inguinal region CT-guided needle biopsy has been done and current prelim pathology is negative for malignancy Oncology consultation with Dr. Rosales appreciated Lymphadenopathy may be secondary to underlying left lower extremity infection, continue antibiotics 5. CKD Monitor 6. Ischemic cardiomyopathy (EF 45% in 2016) Continue home meds 7. Dyslipidemia Continue statin 8. Hypertension Hold home meds secondary to hypotension from sepsis Prophylaxis: Heparin DC planning: Not stable for DC, continue antibiotics, anticipate DC home in 1-2 days Result Diagram: 09/11/18 0540 09/12/18 0622 Results 24hrs Laboratory Tests Test 09/11/18 17:38 09/11/18 20:33 09/12/18 02:31 09/12/18 06:22 Bedside Glucose 179 227 H 197 Sodium Level 137 Potassium Level 5.0 Chloride Level 104 Carbon Dioxide Level 24 Anion Gap 9 Blood Urea Nitrogen 45 H Creatinine 1.96 H Est Glomerular Filtrat 35 L Rate mL/min Glucose Level 200 Calcium Level 8.0 L Test 09/12/18 08:01 09/12/18 11:37 Bedside Glucose 219 213 Subjective 24 Hr Interval Summary Musculoskeletal: bone/joint pain Exam/Review of Systems Exam Vitals Vital Signs Date Temp Pulse Resp B/P (MAP) Pulse Ox O2 O2 Flow FiO2 Time Delivery Rate 09/12/18 97.6 88 20 138/66 95 Room Air 15:00 (90) 09/12/18 2.0 07:53 09/12/18 32 04:22 Intake and Output 2/09/11/18 09/12/18 1515:00 23:00 07:00 IntakeIntake Total 1970 ml 1750 ml OutputOutput Total 900 ml BalanceBalance 1970 ml 850 ml Constitutional: alert, oriented Respiratory: clear to auscultation Cardiovascular: regular rate and rhythm Gastrointestinal: soft; No distended Musculoskeletal: No nl extremities to inspection Results Results 24hrs Laboratory Tests Test 09/11/18 17:38 09/11/18 20:33 09/12/18 02:31 09/12/18 06:22 Bedside Glucose 179 227 H 197 Sodium Level 137 Potassium Level 5.0 Chloride Level 104 Carbon Dioxide Level 24 Anion Gap 9 Blood Urea Nitrogen 45 H Creatinine 1.96 H Est Glomerular Filtrat 35 L Rate mL/min Glucose Level 200 Calcium Level 8.0 L Test 09/12/18 08:01 09/12/18 11:37 Bedside Glucose 219 213 Medications Medication Current Medications IV Flush (NS 3 ml) 3 ml PER PROTOCOL IV ; Start 09/10/18 at 05:00 Ondansetron HCl (Zofran Inj) 4 mg Q6H PRN IV NAUSEA/VOMITING Last administered on 09/10/18at 09:43; Admin Dose 4 MG; Start 09/10/18 at 05:00 Nitroglycerin (Nitroglycerin (Sl Tab) 0.4 Mg) 1 tab Q5M PRN SL .CHEST PAIN; Start 09/10/18 at 05:00 Acetaminophen (Tylenol Tab) 650 mg Q6H PRN PO .PAIN 1-3 OR TEMP Last administered on 09/10/18at 12:23; Admin Dose 650 MG; Start 09/10/18 at 05:00 Heparin Sodium (Porcine) (Heparin (5000 Units/1ml)) 5,000 unit Q12 SC Last administered on 09/12/18at 08:47; Admin Dose 5,000 UNIT; Start 09/10/18 at 09:00 Albuterol/ Ipratropium (Duoneb) 3 ml Q2H RESP THERAPY PRN HHN SHORTNESS OF BREATH Last administered on 09/10/18at 08:40; Admin Dose 3 ML; Start 09/10/18 at 05:00 Alprazolam (Xanax) 0.5 mg TID PRN PO ANXIETY; Start 09/10/18 at 05:00 Aspirin (Aspirin) 81 mg DAILY PO Last administered on 09/12/18 08:23; Admin Dose 81 MG; Start 09/10/18 at 09:00 Atorvastatin Calcium (Lipitor) 80 mg HS PO Last administered on 09/11/18 20:16; Admin Dose 80 MG; Start 09/10/18 at 21:00 Carvedilol (Coreg) 6.25 mg BID PO Last administered on 09/12/18 08:22; Admin Dose 6.25 MG; Start 09/10/18 at 09:00 Furosemide (Lasix) 40 mg DAILY PO Last administered on 09/12/18 08:22; Admin Dose 40 MG; Start 09/10/18 at 09:00 Gabapentin (Neurontin) 300 mg TID PO Last administered on 09/12/18 12:00; Admin Dose 300 MG; Start 09/10/18 at 09:00 Hydralazine HCl (Apresoline) 10 mg Q12 PO Last administered on 09/12/18 08:24; Admin Dose 10 MG; Start 09/10/18 at 09:00 Isosorbide Dinitrate (Isordil) 20 mg TID PO Last administered on 09/12/18 08:23; Admin Dose 20 MG; Start 09/10/18 at 09:00 Montelukast Sodium (Singulair) 10 mg HS PO Last administered on 09/11/18 20:15; Admin Dose 10 MG; Start 09/10/18 at 21:00 Ranolazine (Ranexa) 1,000 mg Q12 PO Last administered on 09/12/18 08:23; Admin Dose 1,000 MG; Start 09/10/18 at 09:00 Tramadol HCl (Ultram) 100 mg Q6 PRN PO PAIN Last administered on 09/11/18 08:46; Admin Dose 100 MG; Start 09/10/18 at 05:00 Valproic Acid (Depakene) 250 mg BID PO Last administered on 09/12/18 08:23; Admin Dose 250 MG; Start 09/10/18 at 09:00 Fish Oil (Fish Oil) 2,000 mg BID PO Last administered on 09/12/18 08:22; Admin Dose 2,000 MG; Start 09/10/18 at 09:00 Diagnostic Test (Pha) (Accu-Chek) 1 ea 02 XX Last administered on 09/12/18at 02:36; Admin Dose 1 EA; Start 09/11/18 at 02:00 Insulin Aspart (Novolog Insulin Pen) NOVOLOG *MODERATE* ALGORITHM WITH MEALS BEDTIME SC Last administered on 09/12/18at 11:46; Admin Dose 4 UNIT; Start 09/10/18 at 07:55 Miscellaneous Information 1 ea NOTE XX ; Start 09/10/18 at 06:00 Glucose (Glutose) 15 gm Q15M PRN PO DECREASED GLUCOSE; Start 09/10/18 at 06:00 Glucose (Glutose) 22.5 gm Q15M PRN PO DECREASED GLUCOSE; Start 09/10/18 at 06:00 Dextrose (D50w Syringe) 25 ml Q15M PRN IV DECREASED GLUCOSE; Start 09/10/18 at 06:00 Dextrose (D50w Syringe) 50 ml Q15M PRN IV DECREASED GLUCOSE; Start 09/10/18 at 06:00 Glucagon (Glucagen) 1 mg Q15M PRN IM DECREASED GLUCOSE; Start 09/10/18 at 06:00 Glucose (Glutose) 15 gm Q15M PRN BUCCAL DECREASED GLUCOSE; Start 09/10/18 at 06:00 Sodium Chloride 1,000 ml @ 100 mls/hr Q10H IV Last administered on 09/11/18at 20:35; Admin Dose 100 MLS/HR; Start 09/10/18 at 15:30 Ceftriaxone Sodium 50 ml @ 100 mls/hr Q24H IVPB Last administered on 09/12/18at 14:40; Admin Dose 100 MLS/HR; Start 09/10/18 at 15:30 Morphine Sulfate (morphine) 2 mg Q3H PRN IV SEVERE PAIN LEVEL 7-10 Last administered on 09/12/18at 15:32; Admin Dose 2 MG; Start 09/11/18 at 14:00 Vancomycin HCl (Vanco Iv Per Pharmacy) VANCOMYCIN PER PHARMACY PER PROTOCOL XX ; Start 09/12/18 at 02:30 Vancomycin HCl 1.5 gm/Sodium Chloride 250 ml @ 83.333 mls/ hr Q24H IVPB Last administered on 09/12/18at 03:37; Admin Dose 83.333 MLS/HR; Start 09/12/18 at 03:00 Insulin Aspart (Novolog Insulin Pen) 12 unit WITH MEALS SC Last administered on 09/12/18at 11:46; Admin Dose 12 UNIT; Start 09/12/18 at 11:50 Insulin Glargine (Lantus) 36 units DAILY@0800 SC ; Start 09/13/18 at 08:00 BRANDON WHITNEY Sep 12, 2018 15:56
[2018-09-12] MEDS: ATORVASTATIN 80 MG TAB PO SCH (20:20)
[2018-09-12] MEDS: MONTELUKAST 10 MG TAB PO SCH (20:21)
[2018-09-13] VITALS (10 sets, daily range): BP systolic 138–160; BP diastolic 74–88; PULSE 84–95; RESP 18–20
[2018-09-13] MEDS: morphine 2 MG INJ IV PRN ×4 (00:37→17:37)
[2018-09-13] MEDS: traMADol 50 MG TAB PO PRN ×3 (01:33→23:53)
[2018-09-13] MEDS: ACCU-CHEK XX SCH (02:30)
[2018-09-13] MEDS: VANCOMYCIN HCL 1.5 GM in SOD CHLORIDE 0.9% 250 ML IVPB SCH (02:30)
[2018-09-13] MEDS: SOD CHLORIDE 0.9% 1,000 ML IV SCH ×4 (03:30→17:44)
[2018-09-13] MEDS: INSULIN ASPART [NOVOLOG] 3 ML PEN SC SCH ×7 (07:45→20:24)
[2018-09-13] MEDS ORDERED: INSULIN GLARGINE [LANTus] (100 UNITS/ML) SYG SC SCH ×2 (08:00)
[2018-09-13] MEDS: VALPROIC ACID 250 MG CAP PO SCH ×2 (08:16→20:12)
[2018-09-13] MEDS: RANOLAZINE (SR) 500 MG TAB PO SCH ×2 (08:16→20:03)
[2018-09-13] MEDS: FUROSEMIDE 40 MG TAB PO SCH (08:17)
[2018-09-13] MEDS: GABAPENTIN 300 MG CAP PO SCH ×3 (08:17→20:12)
[2018-09-13] MEDS: ASPIRIN 81 MG TAB PO SCH (08:18)
[2018-09-13] MEDS: FISH OIL 1,000 MG CAP PO SCH ×2 (08:18→20:12)
[2018-09-13] MEDS: ISOSORBIDE DINITRATE 20 MG TAB PO SCH ×4 (08:18→20:04)
[2018-09-13] MEDS: HEPARIN 5,000 UNIT/1 ML VIAL SC SCH ×2 (08:20→20:24)
--- NOTE | 2018-09-13 09:55 | CONS ---
Assessment/Plan Assessment/Plan Hospital Course (Demo Recall) ID PROGRESS NOTE CURRENT ABX: DAY # Azith + Ceftriaxone 24H INTERVAL SUMMARY * A/A/O - responsive, tolerating ABX well = no f/c/n/v/d/ABD pain/CP/SOB * Chart reviewed -- no new issues DIAGNOSTIC IMAGING * 2D echo revealed no vegetations * CT of the abdomen and pelvis on admission revealed retroperitoneal left iliac chain and left inguinal lymphadenopathy with largest lymph node measures 1.5 cm in the left inguinal region. Moderate diffuse peribronchial thickening suggestive of bronchitis with likely superimposed mass mild interstitial edema. Splenomegaly, unchanged since 2017 CT. MICRO/OTHER * Microbiology: Blood culture on admission grew beta-hemolytic strep species * Repeat BCx (-) PHYSICAL EXAMINATION: GENERAL: VSS, overweight, A/A/O responsive, NAD HEENT: AT, NC, anicteric NECK: Supple, CHEST: Equal chest rise bilaterally, without dyspnea on observation HEART: Pulse RRR ABDOMEN: Soft / NT / mild erythema L groin area. EXTREMITIES: Warm, dry SKIN: No rash, no diaphoresis ID ASSESSMENT 57 yo M admit with: 1. Sepsis present on admission => RESOLVED 2. Beta-hemolytic strep bacteremia likely pulmonary source * 2D echo revealed no vegetations 3. Streptococcal pneumonia 4. Lymphadenopathy status post left groin lymph node biopsy 5. Acute kidney failure 6. Diabetes 7. Ischemic cardiomyopathy 7. Obesity (-)MRSA Nares ABX ALLERGIES: KNDA INVASIVES: PIV CURRENT ABX: DAY #Azith + Ceftriaxone ID RECOMMENDATIONS/PLAN: 1. Continue current ABX 2. ID [employer] Colleague to f/u tomorrow . Consultation Date/Type/Reason Admit Date/Time Sep 09, 2018 at 21:23 Initial Consult Date 09/10/18 Requesting Provider: DERIK LOVE MD Date/Time of Note DATE: 09/13/18 TIME: 09:55 Exam/Review of Systems Exam Vitals Vital Signs Date Temp Pulse Resp B/P (MAP) Pulse Ox O2 O2 Flow FiO2 Time Delivery Rate 09/13/18 90 08:00 09/13/18 Nasal 07:58 Cannula 09/13/18 98.1 20 144/79 95 07:48 (100) 09/13/18 2.0 03:02 09/12/18 32 04:22 Intake and Output 09/12/18 09/12/18 09/13/18 1515:00 23:00 07:00 IntakeIntake Total 1910 ml 1250 ml OutputOutput Total 1200 ml 1300 ml BalanceBalance 710 ml -50 ml Results Result Diagram: 09/13/18 0545 09/13/18 0545 Results 24hrs Laboratory Tests Test 09/12/18 11:37 09/12/18 17:19 09/12/18 17:32 09/12/18 20:30 Bedside Glucose 213 80 81 230 H Test 09/13/18 02:28 09/13/18 05:45 09/13/18 07:41 Bedside Glucose 176 208 White Blood Count 5.4 # Red Blood Count 4.35 L Hemoglobin 10.7 L Hematocrit 34.9 L Mean Corpuscular Volume 80.2 L Mean Corpuscular 24.6 L Hemoglobin Mean Corpuscular 30.7 L Hemoglobin Concent Red Cell Distribution 16.1 H Width Platelet Count 166 Mean Platelet Volume 11.2 H Immature Granulocytes % 0.700 H Neutrophils % 64.4 Lymphocytes % 22.3 Monocytes % 10.0 Eosinophils % 2.2 Basophils % 0.4 Nucleated Red Blood 0.0 Cells % Immature Granulocytes # 0.040 H Neutrophils # 3.5 Lymphocytes # 1.2 Monocytes # 0.5 Eosinophils # 0.1 Basophils # 0.0 Nucleated Red Blood 0.0 Cells # Sodium Level 139 Potassium Level 4.7 Chloride Level 105 Carbon Dioxide Level 27 Anion Gap 7 Blood Urea Nitrogen 35 H Creatinine 1.88 H Est Glomerular Filtrat 37 L Rate mL/min Glucose Level 181 Calcium Level 8.5 Medications Medication Current Medications IV Flush (NS 3 ml) 3 ml PER PROTOCOL IV ; Start 09/10/18 at 05:00 Ondansetron HCl (Zofran Inj) 4 mg Q6H PRN IV NAUSEA/VOMITING Last administered on 09/10/18at 09:43; Admin Dose 4 MG; Start 09/10/18 at 05:00 Nitroglycerin (Nitroglycerin (Sl Tab) 0.4 Mg) 1 tab Q5M PRN SL .CHEST PAIN; Start 09/10/18 at 05:00 Acetaminophen (Tylenol Tab) 650 mg Q6H PRN PO .PAIN 1-3 OR TEMP Last administered on 09/10/18at 12:23; Admin Dose 650 MG; Start 09/10/18 at 05:00 Heparin Sodium (Porcine) (Heparin (5000 Units/1ml)) 5,000 unit Q12 SC Last administered on 09/13/18 08:20; Admin Dose 5,000 UNIT; Start 09/10/18 at 09:00 Albuterol/ Ipratropium (Duoneb) 3 ml Q2H RESP THERAPY PRN HHN SHORTNESS OF BREATH Last administered on 09/10/18 08:40; Admin Dose 3 ML; Start 09/10/18 at 05:00 Alprazolam (Xanax) 0.5 mg TID PRN PO ANXIETY; Start 09/10/18 at 05:00 Aspirin (Aspirin) 81 mg DAILY PO Last administered on 09/13/18 08:18; Admin Dose 81 MG; Start 09/10/18 at 09:00 Atorvastatin Calcium (Lipitor) 80 mg HS PO Last administered on 09/12/18 20:20; Admin Dose 80 MG; Start 09/10/18 at 21:00 Carvedilol (Coreg) 6.25 mg BID PO Last administered on 09/13/18 08:20; Admin Dose 6.25 MG; Start 09/10/18 at 09:00 Furosemide (Lasix) 40 mg DAILY PO Last administered on 09/13/18 08:17; Admin Dose 40 MG; Start 09/10/18 at 09:00 Gabapentin (Neurontin) 300 mg TID PO Last administered on 09/13/18 08:17; Admin Dose 300 MG; Start 09/10/18 at 09:00 Hydralazine HCl (Apresoline) 10 mg Q12 PO Last administered on 09/12/18 20:21; Admin Dose 10 MG; Start 09/10/18 at 09:00 Isosorbide Dinitrate (Isordil) 20 mg TID PO Last administered on 09/12/18 08:23; Admin Dose 20 MG; Start 09/10/18 at 09:00 Montelukast Sodium (Singulair) 10 mg HS PO Last administered on 09/12/18 20:21; Admin Dose 10 MG; Start 09/10/18 at 21:00 Ranolazine (Ranexa) 1,000 mg Q12 PO Last administered on 09/13/18 08:16; Admin Dose 1,000 MG; Start 09/10/18 at 09:00 Tramadol HCl (Ultram) 100 mg Q6 PRN PO PAIN Last administered on 09/13/18 01:33; Admin Dose 100 MG; Start 09/10/18 at 05:00 Valproic Acid (Depakene) 250 mg BID PO Last administered on 09/13/18 08:16; Admin Dose 250 MG; Start 09/10/18 at 09:00 Fish Oil (Fish Oil) 2,000 mg BID PO Last administered on 09/13/18at 08:18; Admin Dose 2,000 MG; Start 09/10/18 at 09:00 Diagnostic Test (Pha) (Accu-Chek) 1 ea 02 XX Last administered on 09/13/18at 02:30; Admin Dose 1 EA; Start 09/11/18 at 02:00 Insulin Aspart (Novolog Insulin Pen) NOVOLOG *MODERATE* ALGORITHM WITH MEALS BEDTIME SC Last administered on 09/13/18at 07:45; Admin Dose 4 UNIT; Start 09/10/18 at 07:55 Miscellaneous Information 1 ea NOTE XX ; Start 09/10/18 at 06:00 Glucose (Glutose) 15 gm Q15M PRN PO DECREASED GLUCOSE; Start 09/10/18 at 06:00 Glucose (Glutose) 22.5 gm Q15M PRN PO DECREASED GLUCOSE; Start 09/10/18 at 06:00 Dextrose (D50w Syringe) 25 ml Q15M PRN IV DECREASED GLUCOSE; Start 09/10/18 at 06:00 Dextrose (D50w Syringe) 50 ml Q15M PRN IV DECREASED GLUCOSE; Start 09/10/18 at 06:00 Glucagon (Glucagen) 1 mg Q15M PRN IM DECREASED GLUCOSE; Start 09/10/18 at 06:00 Glucose (Glutose) 15 gm Q15M PRN BUCCAL DECREASED GLUCOSE; Start 09/10/18 at 06:00 Sodium Chloride 1,000 ml @ 100 mls/hr Q10H IV Last administered on 09/13/18at 06:57; Admin Dose 100 MLS/HR; Start 09/10/18 at 15:30 Ceftriaxone Sodium 50 ml @ 100 mls/hr Q24H IVPB Last administered on 09/12/18at 14:40; Admin Dose 100 MLS/HR; Start 09/10/18 at 15:30 Morphine Sulfate (morphine) 2 mg Q3H PRN IV SEVERE PAIN LEVEL 7-10 Last administered on 09/13/18 05:51; Admin Dose 2 MG; Start 09/11/18 at 14:00 Vancomycin HCl (Vanco Iv Per Pharmacy) VANCOMYCIN PER PHARMACY PER PROTOCOL XX ; Start 09/12/18 at 02:30 Vancomycin HCl 1.5 gm/Sodium Chloride 250 ml @ 83.333 mls/ hr Q24H IVPB Last administered on 09/13/18at 02:30; Admin Dose 83.333 MLS/HR; Start 09/12/18 at 03:00 Insulin Aspart (Novolog Insulin Pen) 14 unit WITH MEALS SC Last administered on 09/13/18 07:45; Admin Dose 14 UNIT; Start 09/12/18 at 17:55 Insulin Glargine (Lantus) 40 units DAILY@0800 SC Last administered on 09/13/18 07:54; Admin Dose 40 UNITS; Start 09/13/18 at 08:00 WAN MEYERS NP Sep 13, 2018 09:55
--- NOTE | 2018-09-13 12:37 | PN ---
Date/Time of Note Date/Time of Note DATE: 09/13/18 TIME: 12:30 Assessment/Plan VTE Prophylaxis Risk score (from Ns)>0 risk: 2 SCD applied (from Nsg): Yes Pharmacological prophylaxis: heparin Lines/Catheters IV Catheter Type (from Nrsg): Peripheral IV Urinary Cath still in place: No Assessment/Plan Hospital Course 1. Sepsis secondary bronchitis/developing pneumonia and/or left lower extremity infection-resolving Vancomycin and Rocephin Blood culture does show hemolytic strep and staph Repeat cultures are negative Echo shows no vegetations IV fluids ID consultation appreciated 2. Acute respiratory distress secondary to bronchitis/pneumonia-resolved Continue IV antibiotics Continue supplemental oxygen as needed 3. Type 1 diabetes with hyperglycemia-uncontrolled A1c at 11.8 Increased scheduled mealtime and basal insulin once again 4. Left inguinal lymphadenopathy and tenderness CT abdomen shows retroperitoneal , left iliac chain and left inguinal lymphadenopathy with largest lymph node measures 1.8 cm in the left inguinal region CT-guided needle biopsy has been done and pathology is negative for malignancy, nodes are reactive likely secondary to infection Oncology consultation with Dr. Rosales appreciated Continue antibiotics and pain control PT 5. CKD Monitor 6. Ischemic cardiomyopathy (EF 45% in 2016) Continue home meds 7. History of coronary disease with multiple stents in the past Continue cardiac meds 8. Hypertension Continue home meds Prophylaxis: Heparin DC planning: Patient is still having pain in the left lower extremity but is improving, continue PT and antibiotics, patient prefers to be discharged home rather than alf, anticipate DC home in 1-2 days Result Diagram: 09/13/18 0545 09/13/18 0545 Results 24hrs Laboratory Tests Test 09/12/18 17:19 09/12/18 17:32 09/12/18 20:30 09/13/18 02:28 Bedside Glucose 80 81 230 H 176 Test 09/13/18 05:45 09/13/18 07:41 09/13/18 11:16 White Blood Count 5.4 # Red Blood Count 4.35 L Hemoglobin 10.7 L Hematocrit 34.9 L Mean Corpuscular Volume 80.2 L Mean Corpuscular 24.6 L Hemoglobin Mean Corpuscular 30.7 L Hemoglobin Concent Red Cell Distribution 16.1 H Width Platelet Count 166 Mean Platelet Volume 11.2 H Immature Granulocytes % 0.700 H Neutrophils % 64.4 Lymphocytes % 22.3 Monocytes % 10.0 Eosinophils % 2.2 Basophils % 0.4 Nucleated Red Blood 0.0 Cells % Immature Granulocytes # 0.040 H Neutrophils # 3.5 Lymphocytes # 1.2 Monocytes # 0.5 Eosinophils # 0.1 Basophils # 0.0 Nucleated Red Blood 0.0 Cells # Sodium Level 139 Potassium Level 4.7 Chloride Level 105 Carbon Dioxide Level 27 Anion Gap 7 Blood Urea Nitrogen 35 H Creatinine 1.88 H Est Glomerular Filtrat 37 L Rate mL/min Glucose Level 181 Calcium Level 8.5 Bedside Glucose 208 224 H Subjective 24 Hr Interval Summary Musculoskeletal: bone/joint pain Exam/Review of Systems Exam Vitals Vital Signs Date Temp Pulse Resp B/P (MAP) Pulse Ox O2 O2 Flow FiO2 Time Delivery Rate 09/13/18 97.9 87 20 160/79 95 Nasal 11:09 (106) Cannula 09/13/18 2.0 03:02 09/12/18 32 04:22 Intake and Output 09/12/18 09/12/18 09/13/18 1515:00 23:00 07:00 IntakeIntake Total 1910 ml 1250 ml OutputOutput Total 1200 ml 1300 ml BalanceBalance 710 ml -50 ml Constitutional: alert, oriented Respiratory: clear to auscultation Cardiovascular: regular rate and rhythm Gastrointestinal: soft; No distended Musculoskeletal: nl extremities to inspection Results Results 24hrs Laboratory Tests Test 09/12/18 17:19 09/12/18 17:32 09/12/18 20:30 09/13/18 02:28 Bedside Glucose 80 81 230 H 176 Test 09/13/18 05:45 09/13/18 07:41 09/13/18 11:16 White Blood Count 5.4 # Red Blood Count 4.35 L Hemoglobin 10.7 L Hematocrit 34.9 L Mean Corpuscular Volume 80.2 L Mean Corpuscular 24.6 L Hemoglobin Mean Corpuscular 30.7 L Hemoglobin Concent Red Cell Distribution 16.1 H Width Platelet Count 166 Mean Platelet Volume 11.2 H Immature Granulocytes % 0.700 H Neutrophils % 64.4 Lymphocytes % 22.3 Monocytes % 10.0 Eosinophils % 2.2 Basophils % 0.4 Nucleated Red Blood 0.0 Cells % Immature Granulocytes # 0.040 H Neutrophils # 3.5 Lymphocytes # 1.2 Monocytes # 0.5 Eosinophils # 0.1 Basophils # 0.0 Nucleated Red Blood 0.0 Cells # Sodium Level 139 Potassium Level 4.7 Chloride Level 105 Carbon Dioxide Level 27 Anion Gap 7 Blood Urea Nitrogen 35 H Creatinine 1.88 H Est Glomerular Filtrat 37 L Rate mL/min Glucose Level 181 Calcium Level 8.5 Bedside Glucose 208 224 H Medications Medication Current Medications IV Flush (NS 3 ml) 3 ml PER PROTOCOL IV ; Start 09/10/18 at 05:00 Ondansetron HCl (Zofran Inj) 4 mg Q6H PRN IV NAUSEA/VOMITING Last administered on 09/10/18 09:43; Admin Dose 4 MG; Start 09/10/18 at 05:00 Nitroglycerin (Nitroglycerin (Sl Tab) 0.4 Mg) 1 tab Q5M PRN SL .CHEST PAIN; Start 09/10/18 at 05:00 Acetaminophen (Tylenol Tab) 650 mg Q6H PRN PO .PAIN 1-3 OR TEMP Last administered on 09/10/18 12:23; Admin Dose 650 MG; Start 09/10/18 at 05:00 Heparin Sodium (Porcine) (Heparin (5000 Units/1ml)) 5,000 unit Q12 SC Last administered on 09/13/18 08:20; Admin Dose 5,000 UNIT; Start 09/10/18 at 09:00 Albuterol/ Ipratropium (Duoneb) 3 ml Q2H RESP THERAPY PRN HHN SHORTNESS OF BREATH Last administered on 09/10/18 08:40; Admin Dose 3 ML; Start 09/10/18 at 05:00 Alprazolam (Xanax) 0.5 mg TID PRN PO ANXIETY; Start 09/10/18 at 05:00 Aspirin (Aspirin) 81 mg DAILY PO Last administered on 09/13/18 08:18; Admin Dose 81 MG; Start 09/10/18 at 09:00 Atorvastatin Calcium (Lipitor) 80 mg HS PO Last administered on 09/12/18 20:20; Admin Dose 80 MG; Start 09/10/18 at 21:00 Carvedilol (Coreg) 6.25 mg BID PO Last administered on 09/13/18 08:20; Admin Dose 6.25 MG; Start 09/10/18 at 09:00 Furosemide (Lasix) 40 mg DAILY PO Last administered on 09/13/18 08:17; Admin Dose 40 MG; Start 09/10/18 at 09:00 Gabapentin (Neurontin) 300 mg TID PO Last administered on 09/13/18 08:17; Admin Dose 300 MG; Start 09/10/18 at 09:00 Hydralazine HCl (Apresoline) 10 mg Q12 PO Last administered on 09/13/18 11:14; Admin Dose 10 MG; Start 09/10/18 at 09:00 Isosorbide Dinitrate (Isordil) 20 mg TID PO Last administered on 09/13/18 11:13; Admin Dose 20 MG; Start 09/10/18 at 09:00 Montelukast Sodium (Singulair) 10 mg HS PO Last administered on 09/12/18 20:21; Admin Dose 10 MG; Start 09/10/18 at 21:00 Ranolazine (Ranexa) 1,000 mg Q12 PO Last administered on 09/13/18 08:16; Admin Dose 1,000 MG; Start 09/10/18 at 09:00 Tramadol HCl (Ultram) 100 mg Q6 PRN PO PAIN Last administered on 09/13/18 01:33; Admin Dose 100 MG; Start 09/10/18 at 05:00 Valproic Acid (Depakene) 250 mg BID PO Last administered on 09/13/18 08:16; Admin Dose 250 MG; Start 09/10/18 at 09:00 Fish Oil (Fish Oil) 2,000 mg BID PO Last administered on 09/13/18 08:18; Admin Dose 2,000 MG; Start 09/10/18 at 09:00 Diagnostic Test (Pha) (Accu-Chek) 1 ea 02 XX Last administered on 09/13/18 02:30; Admin Dose 1 EA; Start 09/11/18 at 02:00 Insulin Aspart (Novolog Insulin Pen) NOVOLOG *MODERATE* ALGORITHM WITH MEALS BEDTIME SC Last administered on 09/13/18 11:20; Admin Dose 6 UNIT; Start 09/10/18 at 07:55 Miscellaneous Information 1 ea NOTE XX ; Start 09/10/18 at 06:00 Glucose (Glutose) 15 gm Q15M PRN PO DECREASED GLUCOSE; Start 09/10/18 at 06:00 Glucose (Glutose) 22.5 gm Q15M PRN PO DECREASED GLUCOSE; Start 09/10/18 at 06:00 Dextrose (D50w Syringe) 25 ml Q15M PRN IV DECREASED GLUCOSE; Start 09/10/18 at 06:00 Dextrose (D50w Syringe) 50 ml Q15M PRN IV DECREASED GLUCOSE; Start 09/10/18 at 06:00 Glucagon (Glucagen) 1 mg Q15M PRN IM DECREASED GLUCOSE; Start 09/10/18 at 06:00 Glucose (Glutose) 15 gm Q15M PRN BUCCAL DECREASED GLUCOSE; Start 09/10/18 at 06:00 Sodium Chloride 1,000 ml @ 100 mls/hr Q10H IV Last administered on 09/13/18at 06:57; Admin Dose 100 MLS/HR; Start 09/10/18 at 15:30 Ceftriaxone Sodium 50 ml @ 100 mls/hr Q24H IVPB Last administered on 09/12/18at 14:40; Admin Dose 100 MLS/HR; Start 09/10/18 at 15:30 Morphine Sulfate (morphine) 2 mg Q3H PRN IV SEVERE PAIN LEVEL 7-10 Last administered on 09/13/18at 05:51; Admin Dose 2 MG; Start 09/11/18 at 14:00 Vancomycin HCl (Vanco Iv Per Pharmacy) VANCOMYCIN PER PHARMACY PER PROTOCOL XX ; Start 09/12/18 at 02:30 Vancomycin HCl 1.5 gm/Sodium Chloride 250 ml @ 83.333 mls/ hr Q24H IVPB Last administered on 09/13/18at 02:30; Admin Dose 83.333 MLS/HR; Start 09/12/18 at 03:00 Insulin Aspart (Novolog Insulin Pen) 14 unit WITH MEALS SC Last administered on 09/13/18at 11:20; Admin Dose 14 UNIT; Start 09/12/18 at 17:55 Insulin Glargine (Lantus) 40 units DAILY@0800 SC Last administered on 09/13/18at 07:54; Admin Dose 40 UNITS; Start 09/13/18 at 08:00 BRANDON WHITNEY Sep 13, 2018 12:37
--- NOTE | 2018-09-13 12:55 | CONS ---
Assessment/Plan Assessment/Plan Assessment/Plan (Daily) 1. acute kidney injury due to ATN From pneumonia 2. sepsis due to pneumonia 3. pneumonia, worried about community acquired PNA 4. h/o HTn 5. h/o Myocardial infarction 6. h/o Lithotripsy before for left kidney stone Plan: BUN/Cr improved to 35/1.88, Bp stable IV abx for PNA and Sepsis, renally dose all abx and monitor electrolyte S/P left groin LN biopsy negative for malignancy , acute laymphadenitis will follow up Consultation Date/Type/Reason Admit Date/Time Sep 09, 2018 at 21:23 Initial Consult Date 09/10/18 Type of Consult NEPHROLOGY Requesting Provider: DERIK LOVE MD Date/Time of Note DATE: 09/13/18 TIME: 12:55 Exam/Review of Systems Exam Vitals Vital Signs Date Temp Pulse Resp B/P (MAP) Pulse Ox O2 O2 Flow FiO2 Time Delivery Rate 09/13/18 97.9 87 20 160/79 95 Nasal 11:09 (106) Cannula 09/13/18 2.0 03:02 09/12/18 32 04:22 Intake and Output 09/12/18 09/12/18 09/13/18 1515:00 23:00 07:00 IntakeIntake Total 1910 ml 1250 ml OutputOutput Total 1200 ml 1300 ml BalanceBalance 710 ml -50 ml Results Result Diagram: 09/13/18 0545 09/13/18 0545 Results 24hrs Laboratory Tests Test 09/12/18 17:19 09/12/18 17:32 09/12/18 20:30 09/13/18 02:28 Bedside Glucose 80 81 230 H 176 Test 09/13/18 05:45 09/13/18 07:41 09/13/18 11:16 White Blood Count 5.4 # Red Blood Count 4.35 L Hemoglobin 10.7 L Hematocrit 34.9 L Mean Corpuscular Volume 80.2 L Mean Corpuscular 24.6 L Hemoglobin Mean Corpuscular 30.7 L Hemoglobin Concent Red Cell Distribution 16.1 H Width Platelet Count 166 Mean Platelet Volume 11.2 H Immature Granulocytes % 0.700 H Neutrophils % 64.4 Lymphocytes % 22.3 Monocytes % 10.0 Eosinophils % 2.2 Basophils % 0.4 Nucleated Red Blood 0.0 Cells % Immature Granulocytes # 0.040 H Neutrophils # 3.5 Lymphocytes # 1.2 Monocytes # 0.5 Eosinophils # 0.1 Basophils # 0.0 Nucleated Red Blood 0.0 Cells # Sodium Level 139 Potassium Level 4.7 Chloride Level 105 Carbon Dioxide Level 27 Anion Gap 7 Blood Urea Nitrogen 35 H Creatinine 1.88 H Est Glomerular Filtrat 37 L Rate mL/min Glucose Level 181 Calcium Level 8.5 Bedside Glucose 208 224 H Medications Medication Current Medications IV Flush (NS 3 ml) 3 ml PER PROTOCOL IV ; Start 09/10/18 at 05:00 Ondansetron HCl (Zofran Inj) 4 mg Q6H PRN IV NAUSEA/VOMITING Last administered on 09/10/18 09:43; Admin Dose 4 MG; Start 09/10/18 at 05:00 Nitroglycerin (Nitroglycerin (Sl Tab) 0.4 Mg) 1 tab Q5M PRN SL .CHEST PAIN; Start 09/10/18 at 05:00 Acetaminophen (Tylenol Tab) 650 mg Q6H PRN PO .PAIN 1-3 OR TEMP Last administered on 09/10/18 12:23; Admin Dose 650 MG; Start 09/10/18 at 05:00 Heparin Sodium (Porcine) (Heparin (5000 Units/1ml)) 5,000 unit Q12 SC Last administered on 09/13/18 08:20; Admin Dose 5,000 UNIT; Start 09/10/18 at 09:00 Albuterol/ Ipratropium (Duoneb) 3 ml Q2H RESP THERAPY PRN HHN SHORTNESS OF BREATH Last administered on 09/10/18 08:40; Admin Dose 3 ML; Start 09/10/18 at 05:00 Alprazolam (Xanax) 0.5 mg TID PRN PO ANXIETY; Start 09/10/18 at 05:00 Aspirin (Aspirin) 81 mg DAILY PO Last administered on 09/13/18 08:18; Admin Dose 81 MG; Start 09/10/18 at 09:00 Atorvastatin Calcium (Lipitor) 80 mg HS PO Last administered on 09/12/18 20:20; Admin Dose 80 MG; Start 09/10/18 at 21:00 Carvedilol (Coreg) 6.25 mg BID PO Last administered on 09/13/18 08:20; Admin Dose 6.25 MG; Start 09/10/18 at 09:00 Furosemide (Lasix) 40 mg DAILY PO Last administered on 09/13/18 08:17; Admin Dose 40 MG; Start 09/10/18 at 09:00 Gabapentin (Neurontin) 300 mg TID PO Last administered on 09/13/18 08:17; Admin Dose 300 MG; Start 09/10/18 at 09:00 Hydralazine HCl (Apresoline) 10 mg Q12 PO Last administered on 09/13/18 11:14; Admin Dose 10 MG; Start 09/10/18 at 09:00 Isosorbide Dinitrate (Isordil) 20 mg TID PO Last administered on 09/13/18 11:13; Admin Dose 20 MG; Start 09/10/18 at 09:00 Montelukast Sodium (Singulair) 10 mg HS PO Last administered on 09/12/18 20:21; Admin Dose 10 MG; Start 09/10/18 at 21:00 Ranolazine (Ranexa) 1,000 mg Q12 PO Last administered on 09/13/18 08:16; Admin Dose 1,000 MG; Start 09/10/18 at 09:00 Tramadol HCl (Ultram) 100 mg Q6 PRN PO PAIN Last administered on 09/13/18 01:33; Admin Dose 100 MG; Start 09/10/18 at 05:00 Valproic Acid (Depakene) 250 mg BID PO Last administered on 09/13/18 08:16; Admin Dose 250 MG; Start 09/10/18 at 09:00 Fish Oil (Fish Oil) 2,000 mg BID PO Last administered on 09/13/18 08:18; Admin Dose 2,000 MG; Start 09/10/18 at 09:00 Diagnostic Test (Pha) (Accu-Chek) 1 ea 02 XX Last administered on 09/13/18 02:30; Admin Dose 1 EA; Start 09/11/18 at 02:00 Insulin Aspart (Novolog Insulin Pen) NOVOLOG *MODERATE* ALGORITHM WITH MEALS BEDTIME SC Last administered on 09/13/18 11:20; Admin Dose 6 UNIT; Start 09/10/18 at 07:55 Miscellaneous Information 1 ea NOTE XX ; Start 09/10/18 at 06:00 Glucose (Glutose) 15 gm Q15M PRN PO DECREASED GLUCOSE; Start 09/10/18 at 06:00 Glucose (Glutose) 22.5 gm Q15M PRN PO DECREASED GLUCOSE; Start 09/10/18 at 06 :00 Dextrose (D50w Syringe) 25 ml Q15M PRN IV DECREASED GLUCOSE; Start 09/10/18 at 06:00 Dextrose (D50w Syringe) 50 ml Q15M PRN IV DECREASED GLUCOSE; Start 09/10/18 at 06:00 Glucagon (Glucagen) 1 mg Q15M PRN IM DECREASED GLUCOSE; Start 09/10/18 at 06:00 Glucose (Glutose) 15 gm Q15M PRN BUCCAL DECREASED GLUCOSE; Start 09/10/18 at 06:00 Sodium Chloride 1,000 ml @ 100 mls/hr Q10H IV Last administered on 09/13/18at 06:57; Admin Dose 100 MLS/HR; Start 09/10/18 at 15:30 Ceftriaxone Sodium 50 ml @ 100 mls/hr Q24H IVPB Last administered on 09/12/18at 14:40; Admin Dose 100 MLS/HR; Start 09/10/18 at 15:30 Morphine Sulfate (morphine) 2 mg Q3H PRN IV SEVERE PAIN LEVEL 7-10 Last administered on 09/13/18at 05:51; Admin Dose 2 MG; Start 09/11/18 at 14:00 Vancomycin HCl (Vanco Iv Per Pharmacy) VANCOMYCIN PER PHARMACY PER PROTOCOL XX ; Start 09/12/18 at 02:30 Vancomycin HCl 1.5 gm/Sodium Chloride 250 ml @ 83.333 mls/ hr Q24H IVPB Last administered on 09/13/18at 02:30; Admin Dose 83.333 MLS/HR; Start 09/12/18 at 03:00 Insulin Aspart (Novolog Insulin Pen) 15 unit WITH MEALS SC ; Start 09/13/18 at 17:55 Insulin Glargine (Lantus) 44 units DAILY@0800 SC ; Start 09/14/18 at 08:00 ANDREW BOWLING MD Sep 13, 2018 12:55
[2018-09-13] MEDS: CEFTRIAXONE 1 GM/50 ML (PMX) 50 ML IVPB SCH (14:47)
--- NOTE | 2018-09-13 17:41 | CONS ---
Assessment/Plan Assessment/Plan Assessment/Plan (Daily) ASSESSMENT: 1. Left inguinal lymphadenopathy, with largest at 1.8 cm. So far, needle biopsy is negative. 2. Diabetes type 1. 3. Chronic obstructive pulmonary disease. 4. Gram positive sepsis. 5. Ischemic cardiomyopathy. 6. Hypertension. 7. left leg cellulitis. The leg pain is unusual, may be from swelling which is chronic. Elevated left leg while in bed. May benefit from compression if he could tolerate (Jobst stocking). The LAD persists with no sig improvement on antibiotics and he may need excisional biopsy. Consultation Date/Type/Reason Admit Date/Time Sep 09, 2018 at 21:23 Initial Consult Date 09/10/18 Type of Consult Hematology Reason for Consultation Enlarged Lymph nodes. Requesting Provider: DERIK LOVE MD Date/Time of Note DATE: 09/13/18 TIME: 17:35 24 HR Interval Summary Free Text/Dictation He reports increase in pain in the left lower leg, sensitive to touch, worse with sitting and dangling legs down. Morphine not helping. US was done 09/11 did now show any DVT. Exam/Review of Systems Exam Vitals Vital Signs Date Temp Pulse Resp B/P (MAP) Pulse Ox O2 O2 Flow FiO2 Time Delivery Rate 09/13/18 91 16:00 09/13/18 98.1 20 156/88 96 Nasal 15:32 (110) Cannula 09/13/18 2.0 03:02 09/12/18 32 04:22 Intake and Output 09/12/18 09/12/18 09/13/18 1515:00 23:00 07:00 IntakeIntake Total 1910 ml 1250 ml OutputOutput Total 1200 ml 1300 ml BalanceBalance 710 ml -50 ml Exam GENERAL: The patient is a well-developed, obese male, who is in no acute distress. SKIN: Mild erythema left lower leg. HEENT: Normocephalic. No evidence of trauma. Pupils are equal, round, reactive to light and accommodation. Sclerae are nonicteric. Oral mucosa is moist without lesions. NECK: Supple. No jugular venous distention or thyroid enlargement. No carotid bruits. CHEST: Clear to auscultation and percussion except for some occasional bibasilar rales, which clear on cough. There is no pain on percussion of spine, sternum, clavicles or ribs. HEART: Regular sinus rhythm, no S3, S4 or murmurs. No rubs. ABDOMEN: Obese with very large pannus. There are no masses or ascites. Bowel sounds are active. No hernia defects. EXTREMITIES: No clubbing or cyanosis. There is also lymphadenopathy in inguinal area. No palpable cords or Homans sign. The left lower leg is very sensitive to touch, warm, tender with swelling. NEUROLOGIC: Normal. Results Result Diagram: 09/13/1845 09/13/1845 Results 24hrs Laboratory Tests Test 09/12/18 20:30 09/13/18 02:28 09/13/18 05:45 09/13/18 07:41 Bedside Glucose 230 H 176 208 White Blood Count 5.4 # Red Blood Count 4.35 L Hemoglobin 10.7 L Hematocrit 34.9 L Mean Corpuscular Volume 80.2 L Mean Corpuscular 24.6 L Hemoglobin Mean Corpuscular 30.7 L Hemoglobin Concent Red Cell Distribution 16.1 H Width Platelet Count 166 Mean Platelet Volume 11.2 H Immature Granulocytes % 0.700 H Neutrophils % 64.4 Lymphocytes % 22.3 Monocytes % 10.0 Eosinophils % 2.2 Basophils % 0.4 Nucleated Red Blood 0.0 Cells % Immature Granulocytes # 0.040 H Neutrophils # 3.5 Lymphocytes # 1.2 Monocytes # 0.5 Eosinophils # 0.1 Basophils # 0.0 Nucleated Red Blood 0.0 Cells # Sodium Level 139 Potassium Level 4.7 Chloride Level 105 Carbon Dioxide Level 27 Anion Gap 7 Blood Urea Nitrogen 35 H Creatinine 1.88 H Est Glomerular Filtrat 37 L Rate mL/min Glucose Level 181 Calcium Level 8.5 Test 09/13/18 11:16 09/13/18 17:17 Bedside Glucose 224 H 276 H Medications Medication Current Medications IV Flush (NS 3 ml) 3 ml PER PROTOCOL IV ; Start 09/10/18 at 05:00 Ondansetron HCl (Zofran Inj) 4 mg Q6H PRN IV NAUSEA/VOMITING Last administered on 09/10/18at 09:43; Admin Dose 4 MG; Start 09/10/18 at 05:00 Nitroglycerin (Nitroglycerin (Sl Tab) 0.4 Mg) 1 tab Q5M PRN SL .CHEST PAIN; Start 09/10/18 at 05:00 Acetaminophen (Tylenol Tab) 650 mg Q6H PRN PO .PAIN 1-3 OR TEMP Last administered on 09/10/18 12:23; Admin Dose 650 MG; Start 09/10/18 at 05:00 Heparin Sodium (Porcine) (Heparin (5000 Units/1ml)) 5,000 unit Q12 SC Last administered on 09/13/18 08:20; Admin Dose 5,000 UNIT; Start 09/10/18 at 09:00 Albuterol/ Ipratropium (Duoneb) 3 ml Q2H RESP THERAPY PRN HHN SHORTNESS OF BREATH Last administered on 09/10/18 08:40; Admin Dose 3 ML; Start 09/10/18 at 05:00 Alprazolam (Xanax) 0.5 mg TID PRN PO ANXIETY; Start 09/10/18 at 05:00 Aspirin (Aspirin) 81 mg DAILY PO Last administered on 09/13/18 08:18; Admin Dose 81 MG; Start 09/10/18 at 09:00 Atorvastatin Calcium (Lipitor) 80 mg HS PO Last administered on 09/12/18 20:20; Admin Dose 80 MG; Start 09/10/18 at 21:00 Carvedilol (Coreg) 6.25 mg BID PO Last administered on 09/13/18 08:20; Admin Dose 6.25 MG; Start 09/10/18 at 09:00 Furosemide (Lasix) 40 mg DAILY PO Last administered on 09/13/18 08:17; Admin Dose 40 MG; Start 09/10/18 at 09:00 Gabapentin (Neurontin) 300 mg TID PO Last administered on 09/13/18 12:55; Admin Dose 300 MG; Start 09/10/18 at 09:00 Hydralazine HCl (Apresoline) 10 mg Q12 PO Last administered on 09/13/18 11:14; Admin Dose 10 MG; Start 09/10/18 at 09:00 Isosorbide Dinitrate (Isordil) 20 mg TID PO Last administered on 09/13/18 11:13; Admin Dose 20 MG; Start 09/10/18 at 09:00 Montelukast Sodium (Singulair) 10 mg HS PO Last administered on 09/12/18 20:21; Admin Dose 10 MG; Start 09/10/18 at 21:00 Ranolazine (Ranexa) 1,000 mg Q12 PO Last administered on 09/13/18 08:16; Admin Dose 1,000 MG; Start 09/10/18 at 09:00 Tramadol HCl (Ultram) 100 mg Q6 PRN PO PAIN Last administered on 09/13/18 01:33; Admin Dose 100 MG; Start 09/10/18 at 05:00 Valproic Acid (Depakene) 250 mg BID PO Last administered on 09/13/18 08:16; Admin Dose 250 MG; Start 09/10/18 at 09:00 Fish Oil (Fish Oil) 2,000 mg BID PO Last administered on 09/13/18 08:18; Admin Dose 2,000 MG; Start 09/10/18 at 09:00 Diagnostic Test (Pha) (Accu-Chek) 1 ea 02 XX Last administered on 09/13/18 02:30; Admin Dose 1 EA; Start 09/11/18 at 02:00 Insulin Aspart (Novolog Insulin Pen) NOVOLOG *MODERATE* ALGORITHM WITH MEALS BEDTIME SC Last administered on 09/13/18 17:22; Admin Dose 8 UNIT; Start 09/10/18 at 07:55 Miscellaneous Information 1 ea NOTE XX ; Start 09/10/18 at 06:00 Glucose (Glutose) 15 gm Q15M PRN PO DECREASED GLUCOSE; Start 09/10/18 at 06:00 Glucose (Glutose) 22.5 gm Q15M PRN PO DECREASED GLUCOSE; Start 09/10/18 at 06 :00 Dextrose (D50w Syringe) 25 ml Q15M PRN IV DECREASED GLUCOSE; Start 09/10/18 at 06:00 Dextrose (D50w Syringe) 50 ml Q15M PRN IV DECREASED GLUCOSE; Start 09/10/18 at 06:00 Glucagon (Glucagen) 1 mg Q15M PRN IM DECREASED GLUCOSE; Start 09/10/18 at 06:00 Glucose (Glutose) 15 gm Q15M PRN BUCCAL DECREASED GLUCOSE; Start 09/10/18 at 06:00 Sodium Chloride 1,000 ml @ 100 mls/hr Q10H IV Last administered on 09/13/18at 06:57; Admin Dose 100 MLS/HR; Start 09/10/18 at 15:30 Ceftriaxone Sodium 50 ml @ 100 mls/hr Q24H IVPB Last administered on 09/13/18at 14:47; Admin Dose 100 MLS/HR; Start 09/10/18 at 15:30 Morphine Sulfate (morphine) 2 mg Q3H PRN IV SEVERE PAIN LEVEL 7-10 Last administered on 09/13/18at 14:47; Admin Dose 2 MG; Start 09/11/18 at 14:00 Vancomycin HCl (Vanco Iv Per Pharmacy) VANCOMYCIN PER PHARMACY PER PROTOCOL XX ; Start 09/12/18 at 02:30 Vancomycin HCl 1.5 gm/Sodium Chloride 250 ml @ 83.333 mls/ hr Q24H IVPB Last administered on 09/13/18 02:30; Admin Dose 83.333 MLS/HR; Start 09/12/18 at 03:00 Insulin Aspart (Novolog Insulin Pen) 15 unit WITH MEALS SC Last administered on 09/13/18at 17:22; Admin Dose 15 UNIT; Start 09/13/18 at 17:55 Insulin Glargine (Lantus) 44 units DAILY@0800 SC ; Start 09/14/18 at 08:00 Miscellaneous Information (*Rx Drug Level Order Reminder*) VANCOMYCIN TROUGH 09/14 AT 0200 ONCE ONCE XX ; Start 09/14/18 at 02:00; Stop 09/14/18 at 02:01 MAURY VICKERS MD Sep 13, 2018 17:41
[2018-09-13] MEDS: morphine 4 MG/ML VIAL IV PRN (20:03)
[2018-09-13] MEDS: MONTELUKAST 10 MG TAB PO SCH (20:12)
[2018-09-13] MEDS: ATORVASTATIN 80 MG TAB PO SCH (20:12)
[2018-09-14] VITALS (13 sets, daily range): BP systolic 106–161; BP diastolic 59–90; PULSE 66–91; RESP 20–22
[2018-09-14] MEDS: morphine 4 MG/ML VIAL IV PRN ×4 (02:25→21:29)
[2018-09-14] MEDS: ACCU-CHEK XX SCH (02:27)
[2018-09-14] MEDS: VANCOMYCIN HCL 1.5 GM in SOD CHLORIDE 0.9% 250 ML IVPB SCH (03:04)
[2018-09-14] MEDS: INSULIN ASPART [NOVOLOG] 3 ML PEN SC SCH ×8 (07:44→19:50)
[2018-09-14] MEDS: INSULIN GLARGINE [LANTus] (100 UNITS/ML) SYG SC SCH (07:54)
[2018-09-14] MEDS: ISOSORBIDE DINITRATE 20 MG TAB PO SCH ×3 (07:55→19:50)
[2018-09-14] MEDS: FUROSEMIDE 40 MG TAB PO SCH (08:27)
[2018-09-14] MEDS: ASPIRIN 81 MG TAB PO SCH (08:27)
[2018-09-14] MEDS: GABAPENTIN 300 MG CAP PO SCH ×3 (08:28→19:49)
[2018-09-14] MEDS: HEPARIN 5,000 UNIT/1 ML VIAL SC SCH ×2 (08:32→20:01)
[2018-09-14] MEDS: SOD CHLORIDE 0.9% 1,000 ML IV SCH (09:30)
[2018-09-14] MEDS: FISH OIL 1,000 MG CAP PO SCH ×2 (10:04→19:49)
[2018-09-14] MEDS: RANOLAZINE (SR) 500 MG TAB PO SCH ×2 (10:04→19:48)
--- NOTE | 2018-09-14 10:05 | CONS ---
Assessment/Plan Assessment/Plan Assessment/Plan (Daily) 1. acute kidney injury due to ATN From pneumonia 2. sepsis due to pneumonia 3. pneumonia, worried about community acquired PNA 4. h/o HTn 5. h/o Myocardial infarction 6. h/o Lithotripsy before for left kidney stone Plan: BUN/Cr improved to 26/1.75, Bp stable IV abx for PNA and Sepsis, renally dose all abx and monitor electrolyte S/P left groin LN biopsy negative for malignancy , acute lymphadenitis will follow up Consultation Date/Type/Reason Admit Date/Time Sep 09, 2018 at 21:23 Initial Consult Date 09/10/18 Type of Consult NEPHROLOGY Requesting Provider: DERIK LOVE MD Date/Time of Note DATE: 09/14/18 TIME: 10:05 Exam/Review of Systems Exam Vitals Vital Signs Date Temp Pulse Resp B/P (MAP) Pulse Ox O2 O2 Flow FiO2 Time Delivery Rate 09/14/18 Nasal 2.0 09:00 Cannula 09/14/18 79 08:00 09/14/18 97.8 22 106/59 96 07:39 (75) 09/13/18 21 18:52 Intake and Output 09/13/18 09/13/18 09/14/18 1515:00 23:00 07:00 IntakeIntake Total 2010 ml 250 ml OutputOutput Total 1600 ml 800 ml BalanceBalance 410 ml -550 ml Exam Constitutional: alert, awake, Respiratory: diminished breath sounds, other (RLL Crackles ) Cardiovascular: regular rate and rhythm Gastrointestinal: soft, non-tender Musculoskeletal: nl extremities to inspection Extremities: normal pulses 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: EVENT PROMOTER II-XII intact, nl mental status, nl speech, nl strength Results Result Diagram: 09/14/18 0610 09/14/18 0610 Results 24hrs Laboratory Tests Test 09/13/18 11:16 09/13/18 17:17 09/13/18 20:05 09/14/18 02:12 Bedside Glucose 224 H 276 H 212 Vancomycin Level Trough 11.6 Test 09/14/18 02:26 09/14/18 06:10 09/14/18 07:39 Bedside Glucose 136 160 White Blood Count 7.5 # Red Blood Count 4.30 L Hemoglobin 10.5 L Hematocrit 34.2 L Mean Corpuscular Volume 79.5 L Mean Corpuscular 24.4 L Hemoglobin Mean Corpuscular 30.7 L Hemoglobin Concent Red Cell Distribution 16.2 H Width Platelet Count 185 Mean Platelet Volume 10.4 Immature Granulocytes % 1.200 H Neutrophils % 65.0 Lymphocytes % 22.8 Monocytes % 8.8 Eosinophils % 1.7 Basophils % 0.5 Nucleated Red Blood 0.0 Cells % Immature Granulocytes # 0.090 H Neutrophils # 4.9 Lymphocytes # 1.7 Monocytes # 0.7 Eosinophils # 0.1 Basophils # 0.0 Nucleated Red Blood 0.0 Cells # Sodium Level 140 Potassium Level 5.0 Chloride Level 105 Carbon Dioxide Level 27 Anion Gap 8 Blood Urea Nitrogen 26 H Creatinine 1.75 H Est Glomerular Filtrat 40 L Rate mL/min Glucose Level 155 Calcium Level 8.5 Medications Medication Current Medications IV Flush (NS 3 ml) 3 ml PER PROTOCOL IV ; Start 09/10/18 at 05:00 Ondansetron HCl (Zofran Inj) 4 mg Q6H PRN IV NAUSEA/VOMITING Last administered on 09/10/18at 09:43; Admin Dose 4 MG; Start 09/10/18 at 05:00 Nitroglycerin (Nitroglycerin (Sl Tab) 0.4 Mg) 1 tab Q5M PRN SL .CHEST PAIN; Start 09/10/18 at 05:00 Acetaminophen (Tylenol Tab) 650 mg Q6H PRN PO .PAIN 1-3 OR TEMP Last administered on 09/10/18 12:23; Admin Dose 650 MG; Start 09/10/18 at 05:00 Heparin Sodium (Porcine) (Heparin (5000 Units/1ml)) 5,000 unit Q12 SC Last administered on 09/14/18 08:32; Admin Dose 5,000 UNIT; Start 09/10/18 at 09:00 Albuterol/ Ipratropium (Duoneb) 3 ml Q2H RESP THERAPY PRN HHN SHORTNESS OF BREATH Last administered on 09/10/18 08:40; Admin Dose 3 ML; Start 09/10/18 at 05:00 Alprazolam (Xanax) 0.5 mg TID PRN PO ANXIETY; Start 09/10/18 at 05:00 Aspirin (Aspirin) 81 mg DAILY PO Last administered on 09/14/18 08:27; Admin Dose 81 MG; Start 09/10/18 at 09:00 Atorvastatin Calcium (Lipitor) 80 mg HS PO Last administered on 09/13/18 20:12; Admin Dose 80 MG; Start 09/10/18 at 21:00 Carvedilol (Coreg) 6.25 mg BID PO Last administered on 09/14/18 08:28; Admin Dose 6.25 MG; Start 09/10/18 at 09:00 Furosemide (Lasix) 40 mg DAILY PO Last administered on 09/14/18 08:27; Admin Dose 40 MG; Start 09/10/18 at 09:00 Gabapentin (Neurontin) 300 mg TID PO Last administered on 09/14/18 08:28; Admin Dose 300 MG; Start 09/10/18 at 09:00 Hydralazine HCl (Apresoline) 10 mg Q12 PO Last administered on 09/13/18 20:04; Admin Dose 10 MG; Start 09/10/18 at 09:00 Isosorbide Dinitrate (Isordil) 20 mg TID PO Last administered on 09/13/18 20:04; Admin Dose 20 MG; Start 09/10/18 at 09:00 Montelukast Sodium (Singulair) 10 mg HS PO Last administered on 09/13/18 20:12; Admin Dose 10 MG; Start 09/10/18 at 21:00 Ranolazine (Ranexa) 1,000 mg Q12 PO Last administered on 09/13/18 20:03; Admin Dose 1,000 MG; Start 09/10/18 at 09:00 Tramadol HCl (Ultram) 100 mg Q6 PRN PO PAIN Last administered on 09/13/18 23:53; Admin Dose 100 MG; Start 09/10/18 at 05:00 Valproic Acid (Depakene) 250 mg BID PO Last administered on 09/13/18 20:12; Admin Dose 250 MG; Start 09/10/18 at 09:00 Fish Oil (Fish Oil) 2,000 mg BID PO Last administered on 09/13/18 20:12; Admin Dose 2,000 MG; Start 09/10/18 at 09:00 Diagnostic Test (Pha) (Accu-Chek) 1 ea 02 XX Last administered on 09/14/18 02:27; Admin Dose 1 EA; Start 09/11/18 at 02:00 Insulin Aspart (Novolog Insulin Pen) NOVOLOG *MODERATE* ALGORITHM WITH MEALS BEDTIME SC Last administered on 09/14/18 07:44; Admin Dose 2 UNIT; Start 09/10/18 at 07:55 Miscellaneous Information 1 ea NOTE XX ; Start 09/10/18 at 06:00 Glucose (Glutose) 15 gm Q15M PRN PO DECREASED GLUCOSE; Start 09/10/18 at 06:00 Glucose (Glutose) 22.5 gm Q15M PRN PO DECREASED GLUCOSE; Start 09/10/18 at 06:00 Dextrose (D50w Syringe) 25 ml Q15M PRN IV DECREASED GLUCOSE; Start 09/10/18 at 06:00 Dextrose (D50w Syringe) 50 ml Q15M PRN IV DECREASED GLUCOSE; Start 09/10/18 at 06:00 Glucagon (Glucagen) 1 mg Q15M PRN IM DECREASED GLUCOSE; Start 09/10/18 at 06:00 Glucose (Glutose) 15 gm Q15M PRN BUCCAL DECREASED GLUCOSE; Start 09/10/18 at 06:00 Sodium Chloride 1,000 ml @ 100 mls/hr Q10H IV Last administered on 09/13/18at 17:44; Admin Dose 100 MLS/HR; Start 09/10/18 at 15:30 Ceftriaxone Sodium 50 ml @ 100 mls/hr Q24H IVPB Last administered on 09/13/18at 14:47; Admin Dose 100 MLS/HR; Start 09/10/18 at 15:30 Vancomycin HCl (Vanco Iv Per Pharmacy) VANCOMYCIN PER PHARMACY PER PROTOCOL XX ; Start 09/12/18 at 02:30 Vancomycin HCl 1.5 gm/Sodium Chloride 250 ml @ 83.333 mls/ hr Q24H IVPB Last administered on 09/14/18at 03:04; Admin Dose 83.333 MLS/HR; Start 09/12/18 at 03:00 Insulin Aspart (Novolog Insulin Pen) 15 unit WITH MEALS SC Last administered on 09/14/18at 07:44; Admin Dose 15 UNIT; Start 09/13/18 at 17:55 Insulin Glargine (Lantus) 44 units DAILY@0800 SC Last administered on 09/14/18at 07:54; Admin Dose 44 UNITS; Start 09/14/18 at 08:00 Morphine Sulfate (morphine) 4 mg Q3H PRN IV SEVERE PAIN LEVEL 7-10 Last administered on 09/14/18at 02:25; Admin Dose 4 MG; Start 09/13/18 at 18:00 ANDREW BOWLING MD Sep 14, 2018 10:05
[2018-09-14] MEDS: VALPROIC ACID 250 MG CAP PO SCH ×2 (10:35→19:49)
[2018-09-14] MEDS: CEFTRIAXONE 1 GM/50 ML (PMX) 50 ML IVPB SCH (14:59)
--- NOTE | 2018-09-14 15:48 | CONS ---
Assessment/Plan Assessment/Plan Hospital Course (Demo Recall) No acute events, sleeping, looks comfortable, no fevers Microbiology: Blood culture on admission grew beta-hemolytic strep species CT of the abdomen and pelvis on admission revealed retroperitoneal left iliac chain and left inguinal lymphadenopathy with largest lymph node measures 1.5 cm in the left inguinal region. Moderate diffuse peribronchial thickening suggestive of bronchitis with likely superimposed mass mild interstitial edema. Splenomegaly, unchanged since 2017 CT. Antimicrobials: Rocephin Vanco Physical examination: Well-nourished well-developed middle-aged [place]ian-speaking man who is alert in no distress. Head atraumatic normocephalic. Neck is supple. Chest rise symmetrical, breath sounds diminished bases. Heart: S1-S2. Abdomen distended soft bowel sounds present. Extremities without cyanosis, tenterness, warmth and mild erythema L groin area. Assessment: 1. Sepsis present on admission 2. Beta-hemolytic strep bacteremia 3. LLE cellulitis 4. Lymphadenopathy status post left groin lymph node biopsy==> neg malignancy 5. Acute kidney failure 6. Diabetes 7. Ischemic cardiomyopathy 7. Obesity Plan: Remains stable, 2D echo revealed no vegetations, repeat bld cx neg, continue on current antibiotics Consultation Date/Type/Reason Admit Date/Time Sep 09, 2018 at 21:23 Initial Consult Date 09/10/18 Type of Consult id Requesting Provider: DERIK LOVE MD Date/Time of Note DATE: 09/14/18 TIME: 15:46 Exam/Review of Systems Exam Vitals Vital Signs Date Temp Pulse Resp B/P (MAP) Pulse Ox O2 O2 Flow FiO2 Time Delivery Rate 09/14/18 66 12:00 09/14/18 98.0 20 142/68 96 Nasal 2.0 11:48 (92) Cannula 09/13/18 21 18:52 Intake and Output 09/13/18 09/13/18 09/14/18 1515:00 23:00 07:00 IntakeIntake Total 2010 ml 250 ml OutputOutput Total 1600 ml 800 ml BalanceBalance 410 ml -550 ml Results Result Diagram: 09/14/18 0610 09/14/18 0610 Results 24hrs Laboratory Tests Test 09/13/18 17:17 09/13/18 20:05 09/14/18 02:12 09/14/18 02:26 Bedside Glucose 276 H 212 136 Vancomycin Level Trough 11.6 Test 09/14/18 06:10 09/14/18 07:39 09/14/18 11:18 White Blood Count 7.5 # Red Blood Count 4.30 L Hemoglobin 10.5 L Hematocrit 34.2 L Mean Corpuscular Volume 79.5 L Mean Corpuscular 24.4 L Hemoglobin Mean Corpuscular 30.7 L Hemoglobin Concent Red Cell Distribution 16.2 H Width Platelet Count 185 Mean Platelet Volume 10.4 Immature Granulocytes % 1.200 H Neutrophils % 65.0 Lymphocytes % 22.8 Monocytes % 8.8 Eosinophils % 1.7 Basophils % 0.5 Nucleated Red Blood 0.0 Cells % Immature Granulocytes # 0.090 H Neutrophils # 4.9 Lymphocytes # 1.7 Monocytes # 0.7 Eosinophils # 0.1 Basophils # 0.0 Nucleated Red Blood 0.0 Cells # Sodium Level 140 Potassium Level 5.0 Chloride Level 105 Carbon Dioxide Level 27 Anion Gap 8 Blood Urea Nitrogen 26 H Creatinine 1.75 H Est Glomerular Filtrat 40 L Rate mL/min Glucose Level 155 Calcium Level 8.5 Bedside Glucose 160 89 Medications Medication Current Medications IV Flush (NS 3 ml) 3 ml PER PROTOCOL IV ; Start 09/10/18 at 05:00 Ondansetron HCl (Zofran Inj) 4 mg Q6H PRN IV NAUSEA/VOMITING Last administered on 09/10/18at 09:43; Admin Dose 4 MG; Start 09/10/18 at 05:00 Nitroglycerin (Nitroglycerin (Sl Tab) 0.4 Mg) 1 tab Q5M PRN SL .CHEST PAIN; Start 09/10/18 at 05:00 Acetaminophen (Tylenol Tab) 650 mg Q6H PRN PO .PAIN 1-3 OR TEMP Last administered on 09/10/18at 12:23; Admin Dose 650 MG; Start 09/10/18 at 05:00 Heparin Sodium (Porcine) (Heparin (5000 Units/1ml)) 5,000 unit Q12 SC Last administered on 09/14/18at 08:32; Admin Dose 5,000 UNIT; Start 09/10/18 at 09:00 Albuterol/ Ipratropium (Duoneb) 3 ml Q2H RESP THERAPY PRN HHN SHORTNESS OF BREATH Last administered on 09/10/18at 08:40; Admin Dose 3 ML; Start 09/10/18 at 05:00 Alprazolam (Xanax) 0.5 mg TID PRN PO ANXIETY; Start 09/10/18 at 05:00 Aspirin (Aspirin) 81 mg DAILY PO Last administered on 09/14/18 08:27; Admin Dose 81 MG; Start 09/10/18 at 09:00 Atorvastatin Calcium (Lipitor) 80 mg HS PO Last administered on 09/13/18 20:12; Admin Dose 80 MG; Start 09/10/18 at 21:00 Carvedilol (Coreg) 6.25 mg BID PO Last administered on 09/14/18 08:28; Admin Dose 6.25 MG; Start 09/10/18 at 09:00 Furosemide (Lasix) 40 mg DAILY PO Last administered on 09/14/18 08:27; Admin Dose 40 MG; Start 09/10/18 at 09:00 Gabapentin (Neurontin) 300 mg TID PO Last administered on 09/14/18 12:23; Admin Dose 300 MG; Start 09/10/18 at 09:00 Hydralazine HCl (Apresoline) 10 mg Q12 PO Last administered on 09/13/18 20:04; Admin Dose 10 MG; Start 09/10/18 at 09:00 Isosorbide Dinitrate (Isordil) 20 mg TID PO Last administered on 09/14/18 12:23; Admin Dose 20 MG; Start 09/10/18 at 09:00 Montelukast Sodium (Singulair) 10 mg HS PO Last administered on 09/13/18 20:12; Admin Dose 10 MG; Start 09/10/18 at 21:00 Ranolazine (Ranexa) 1,000 mg Q12 PO Last administered on 09/14/18 10:04; Admin Dose 1,000 MG; Start 09/10/18 at 09:00 Tramadol HCl (Ultram) 100 mg Q6 PRN PO PAIN Last administered on 09/13/18 23:53; Admin Dose 100 MG; Start 09/10/18 at 05:00 Valproic Acid (Depakene) 250 mg BID PO Last administered on 09/14/18 10:35; Admin Dose 250 MG; Start 09/10/18 at 09:00 Fish Oil (Fish Oil) 2,000 mg BID PO Last administered on 09/14/18 10:04; Admin Dose 2,000 MG; Start 09/10/18 at 09:00 Diagnostic Test (Pha) (Accu-Chek) 1 ea 02 XX Last administered on 09/14/18 02:27; Admin Dose 1 EA; Start 09/11/18 at 02:00 Insulin Aspart (Novolog Insulin Pen) NOVOLOG *MODERATE* ALGORITHM WITH MEALS BEDTIME SC Last administered on 09/14/18 07:44; Admin Dose 2 UNIT; Start 09/10/18 at 07:55 Miscellaneous Information 1 ea NOTE XX ; Start 09/10/18 at 06:00 Glucose (Glutose) 15 gm Q15M PRN PO DECREASED GLUCOSE; Start 09/10/18 at 06:00 Glucose (Glutose) 22.5 gm Q15M PRN PO DECREASED GLUCOSE; Start 09/10/18 at 06:00 Dextrose (D50w Syringe) 25 ml Q15M PRN IV DECREASED GLUCOSE; Start 09/10/18 at 06:00 Dextrose (D50w Syringe) 50 ml Q15M PRN IV DECREASED GLUCOSE; Start 09/10/18 at 06:00 Glucagon (Glucagen) 1 mg Q15M PRN IM DECREASED GLUCOSE; Start 09/10/18 at 06:00 Glucose (Glutose) 15 gm Q15M PRN BUCCAL DECREASED GLUCOSE; Start 09/10/18 at 06:00 Sodium Chloride 1,000 ml @ 100 mls/hr Q10H IV Last administered on 09/13/18 17:44; Admin Dose 100 MLS/HR; Start 09/10/18 at 15:30 Ceftriaxone Sodium 50 ml @ 100 mls/hr Q24H IVPB Last administered on 09/14/18at 14:59; Admin Dose 100 MLS/HR; Start 09/10/18 at 15:30 Vancomycin HCl (Vanco Iv Per Pharmacy) VANCOMYCIN PER PHARMACY PER PROTOCOL XX ; Start 09/12/18 at 02:30 Vancomycin HCl 1.5 gm/Sodium Chloride 250 ml @ 83.333 mls/ hr Q24H IVPB Last administered on 09/14/18 03:04; Admin Dose 83.333 MLS/HR; Start 09/12/18 at 03:00 Insulin Aspart (Novolog Insulin Pen) 15 unit WITH MEALS SC Last administered on 09/14/18 11:24; Admin Dose 15 UNIT; Start 09/13/18 at 17:55 Insulin Glargine (Lantus) 44 units DAILY@0800 SC Last administered on 09/14/18 07:54; Admin Dose 44 UNITS; Start 09/14/18 at 08:00 Morphine Sulfate (morphine) 4 mg Q3H PRN IV SEVERE PAIN LEVEL 7-10 Last administered on 09/14/18 15:09; Admin Dose 4 MG; Start 09/13/18 at 18:00 BONNIE MONTILLA NP Sep 14, 2018 15:48
--- NOTE | 2018-09-14 16:55 | CONS ---
Assessment/Plan Assessment/Plan Assessment/Plan (Daily) ASSESSMENT: 1. Left internal and external inguinal lymphadenopathy, with largest at 1.8 cm. So far, needle biopsy is negative. 2. Diabetes type 1. 3. Chronic obstructive pulmonary disease. 4. Gram positive sepsis. 5. Ischemic cardiomyopathy. 6. Hypertension. 7. left leg cellulitis. There is increasing pain and redness of the left leg, consider need to broaden antibiotics if this worsens/persists. The LAD is the same on exam, no change. Monitor. Consultation Date/Type/Reason Admit Date/Time Sep 09, 2018 at 21:23 Initial Consult Date 09/10/18 Type of Consult Hematology Requesting Provider: DERIK LOVE MD Date/Time of Note DATE: 09/14/18 TIME: 16:51 24 HR Interval Summary Free Text/Dictation He continues to have severe pain in the left leg, going from left inner thigh to the foot. Today also has more redness and he c/o chills (shaking). Exam/Review of Systems Exam Vitals Vital Signs Date Temp Pulse Resp B/P (MAP) Pulse Ox O2 O2 Flow FiO2 Time Delivery Rate 09/14/18 98.0 79 20 128/73 96 Room Air 16:09 (91) 09/14/18 2.0 11:48 09/13/18 21 18:52 Intake and Output 09/13/18 09/13/18 09/14/18 1515:00 23:00 07:00 IntakeIntake Total 2010 ml 250 ml OutputOutput Total 1600 ml 800 ml BalanceBalance 410 ml -550 ml Exam NAD laying in bed. Obese. Heart - regular. Chest - clear in anterior aspect. Abd - large pannus. non tender. LEFT low inguinal LAD - about 1.5 cm in size, no change. LEFT LEG - significant persistent edema, with erythema on inner lower leg, warmth, and tender to light touch. Right is better. Results Result Diagram: 09/14/18 0610 09/14/18 0610 Results 24hrs Laboratory Tests Test 09/13/18 17:17 09/13/18 20:05 09/14/18 02:12 09/14/18 02:26 Bedside Glucose 276 H 212 136 Vancomycin Level Trough 11.6 Test 09/14/18 06:10 09/14/18 07:39 09/14/18 11:18 White Blood Count 7.5 # Red Blood Count 4.30 L Hemoglobin 10.5 L Hematocrit 34.2 L Mean Corpuscular Volume 79.5 L Mean Corpuscular 24.4 L Hemoglobin Mean Corpuscular 30.7 L Hemoglobin Concent Red Cell Distribution 16.2 H Width Platelet Count 185 Mean Platelet Volume 10.4 Immature Granulocytes % 1.200 H Neutrophils % 65.0 Lymphocytes % 22.8 Monocytes % 8.8 Eosinophils % 1.7 Basophils % 0.5 Nucleated Red Blood 0.0 Cells % Immature Granulocytes # 0.090 H Neutrophils # 4.9 Lymphocytes # 1.7 Monocytes # 0.7 Eosinophils # 0.1 Basophils # 0.0 Nucleated Red Blood 0.0 Cells # Sodium Level 140 Potassium Level 5.0 Chloride Level 105 Carbon Dioxide Level 27 Anion Gap 8 Blood Urea Nitrogen 26 H Creatinine 1.75 H Est Glomerular Filtrat 40 L Rate mL/min Glucose Level 155 Calcium Level 8.5 Bedside Glucose 160 89 Medications Medication Current Medications IV Flush (NS 3 ml) 3 ml PER PROTOCOL IV ; Start 09/10/18 at 05:00 Ondansetron HCl (Zofran Inj) 4 mg Q6H PRN IV NAUSEA/VOMITING Last administered on 09/10/18at 09:43; Admin Dose 4 MG; Start 09/10/18 at 05:00 Nitroglycerin (Nitroglycerin (Sl Tab) 0.4 Mg) 1 tab Q5M PRN SL .CHEST PAIN; Start 09/10/18 at 05:00 Acetaminophen (Tylenol Tab) 650 mg Q6H PRN PO .PAIN 1-3 OR TEMP Last administered on 09/10/18at 12:23; Admin Dose 650 MG; Start 09/10/18 at 05:00 Heparin Sodium (Porcine) (Heparin (5000 Units/1ml)) 5,000 unit Q12 SC Last administered on 09/14/18at 08:32; Admin Dose 5,000 UNIT; Start 09/10/18 at 09:00 Albuterol/ Ipratropium (Duoneb) 3 ml Q2H RESP THERAPY PRN HHN SHORTNESS OF BREATH Last administered on 09/10/18at 08:40; Admin Dose 3 ML; Start 09/10/18 at 05:00 Alprazolam (Xanax) 0.5 mg TID PRN PO ANXIETY; Start 09/10/18 at 05:00 Aspirin (Aspirin) 81 mg DAILY PO Last administered on 09/14/18 08:27; Admin Dose 81 MG; Start 09/10/18 at 09:00 Atorvastatin Calcium (Lipitor) 80 mg HS PO Last administered on 09/13/18 20:12; Admin Dose 80 MG; Start 09/10/18 at 21:00 Carvedilol (Coreg) 6.25 mg BID PO Last administered on 09/14/18 08:28; Admin Dose 6.25 MG; Start 09/10/18 at 09:00 Furosemide (Lasix) 40 mg DAILY PO Last administered on 09/14/18 08:27; Admin Dose 40 MG; Start 09/10/18 at 09:00 Gabapentin (Neurontin) 300 mg TID PO Last administered on 09/14/18 12:23; Admin Dose 300 MG; Start 09/10/18 at 09:00 Hydralazine HCl (Apresoline) 10 mg Q12 PO Last administered on 09/13/18 20:04; Admin Dose 10 MG; Start 09/10/18 at 09:00 Isosorbide Dinitrate (Isordil) 20 mg TID PO Last administered on 09/14/18 12:23; Admin Dose 20 MG; Start 09/10/18 at 09:00 Montelukast Sodium (Singulair) 10 mg HS PO Last administered on 09/13/18 20:12; Admin Dose 10 MG; Start 09/10/18 at 21:00 Ranolazine (Ranexa) 1,000 mg Q12 PO Last administered on 09/14/18 10:04; Admin Dose 1,000 MG; Start 09/10/18 at 09:00 Tramadol HCl (Ultram) 100 mg Q6 PRN PO PAIN Last administered on 09/13/18 23:53; Admin Dose 100 MG; Start 09/10/18 at 05:00 Valproic Acid (Depakene) 250 mg BID PO Last administered on 09/14/18 10:35; A dmin Dose 250 MG; Start 09/10/18 at 09:00 Fish Oil (Fish Oil) 2,000 mg BID PO Last administered on 09/14/18 10:04; Admin Dose 2,000 MG; Start 09/10/18 at 09:00 Diagnostic Test (Pha) (Accu-Chek) 1 ea 02 XX Last administered on 09/14/18at 02:27; Admin Dose 1 EA; Start 09/11/18 at 02:00 Insulin Aspart (Novolog Insulin Pen) NOVOLOG *MODERATE* ALGORITHM WITH MEALS BEDTIME SC Last administered on 09/14/18 07:44; Admin Dose 2 UNIT; Start 09/10/18 at 07:55 Miscellaneous Information 1 ea NOTE XX ; Start 09/10/18 at 06:00 Glucose (Glutose) 15 gm Q15M PRN PO DECREASED GLUCOSE; Start 09/10/18 at 06:00 Glucose (Glutose) 22.5 gm Q15M PRN PO DECREASED GLUCOSE; Start 09/10/18 at 06:00 Dextrose (D50w Syringe) 25 ml Q15M PRN IV DECREASED GLUCOSE; Start 09/10/18 at 06:00 Dextrose (D50w Syringe) 50 ml Q15M PRN IV DECREASED GLUCOSE; Start 09/10/18 at 06:00 Glucagon (Glucagen) 1 mg Q15M PRN IM DECREASED GLUCOSE; Start 09/10/18 at 06:00 Glucose (Glutose) 15 gm Q15M PRN BUCCAL DECREASED GLUCOSE; Start 09/10/18 at 06:00 Sodium Chloride 1,000 ml @ 100 mls/hr Q10H IV Last administered on 09/13/18at 17:44; Admin Dose 100 MLS/HR; Start 09/10/18 at 15:30 Ceftriaxone Sodium 50 ml @ 100 mls/hr Q24H IVPB Last administered on 09/14/18at 14:59; Admin Dose 100 MLS/HR; Start 09/10/18 at 15:30 Vancomycin HCl (Vanco Iv Per Pharmacy) VANCOMYCIN PER PHARMACY PER PROTOCOL XX ; Start 09/12/18 at 02:30 Vancomycin HCl 1.5 gm/Sodium Chloride 250 ml @ 83.333 mls/ hr Q24H IVPB Last administered on 09/14/18 03:04; Admin Dose 83.333 MLS/HR; Start 09/12/18 at 03:00 Insulin Aspart (Novolog Insulin Pen) 15 unit WITH MEALS SC Last administered on 09/14/18 11:24; Admin Dose 15 UNIT; Start 09/13/18 at 17:55 Insulin Glargine (Lantus) 44 units DAILY@0800 SC Last administered on 09/14/18 07:54; Admin Dose 44 UNITS; Start 09/14/18 at 08:00 Morphine Sulfate (morphine) 4 mg Q3H PRN IV SEVERE PAIN LEVEL 7-10 Last admini stered on 09/14/18at 15:09; Admin Dose 4 MG; Start 09/13/18 at 18:00 MAURY VICKERS MD Sep 14, 2018 16:55
--- NOTE | 2018-09-14 18:04 | PN ---
Date/Time of Note Date/Time of Note DATE: 09/14/18 TIME: 18:02 Assessment/Plan VTE Prophylaxis Risk score (from Ns)>0 risk: 4 SCD applied (from Ns): Yes Pharmacological prophylaxis: heparin Lines/Catheters IV Catheter Type (from Nrsg): Peripheral IV Urinary Cath still in place: No Assessment/Plan Hospital Course 1. Sepsis secondary to left lower extremity infection and/or bronchitis Continue vancomycin and Rocephin Blood culture does show hemolytic strep and staph Repeat cultures are negative Echo shows no vegetations IV fluids ID consultation appreciated 2. Acute respiratory distress secondary to bronchitis/pneumonia-resolved Continue IV antibiotics Continue supplemental oxygen as needed 3. Type 1 diabetes with hyperglycemia-uncontrolled A1c at 11.8 Decreased mealtime insulin due to episode of hypoglycemia, continue basal insulin 4. Left inguinal lymphadenopathy and tenderness secondary to left lower extremity cellulitis CT abdomen shows retroperitoneal , left iliac chain and left inguinal lymphadenopathy with largest lymph node measures 1.8 cm in the left inguinal region CT-guided needle biopsy has been done and pathology is negative for malignancy, nodes are reactive likely secondary to infection Oncology consultation with Dr. Rosales appreciated Continue antibiotics and pain control Patient is having difficulty ambulating secondary to lower extremity weakness and pain, continue PT 5. CKD Monitor 6. Ischemic cardiomyopathy (EF 45% in 2016) Continue home meds 7. History of coronary disease with multiple stents in the past Continue cardiac meds 8. Hypertension Continue home meds Prophylaxis: Heparin DC planning: Patient is still having pain in the left lower extremity but is improving, patient also reports significant weakness in the lower extremities reports difficulty ambulating, continue PT and antibiotics, patient prefers to be discharged home rather than prison, anticipate DC home in 1-2 days if patient can ambulate Result Diagram: 09/14/18 0610 09/14/18 0610 Results 24hrs Laboratory Tests Test 09/13/18 20:05 09/14/18 02:12 09/14/18 02:26 09/14/18 06:10 Bedside Glucose 212 136 Vancomycin Level Trough 11.6 White Blood Count 7.5 # Red Blood Count 4.30 L Hemoglobin 10.5 L Hematocrit 34.2 L Mean Corpuscular Volume 79.5 L Mean Corpuscular 24.4 L Hemoglobin Mean Corpuscular 30.7 L Hemoglobin Concent Red Cell Distribution 16.2 H Width Platelet Count 185 Mean Platelet Volume 10.4 Immature Granulocytes % 1.200 H Neutrophils % 65.0 Lymphocytes % 22.8 Monocytes % 8.8 Eosinophils % 1.7 Basophils % 0.5 Nucleated Red Blood 0.0 Cells % Immature Granulocytes # 0.090 H Neutrophils # 4.9 Lymphocytes # 1.7 Monocytes # 0.7 Eosinophils # 0.1 Basophils # 0.0 Nucleated Red Blood 0.0 Cells # Sodium Level 140 Potassium Level 5.0 Chloride Level 105 Carbon Dioxide Level 27 Anion Gap 8 Blood Urea Nitrogen 26 H Creatinine 1.75 H Est Glomerular Filtrat 40 L Rate mL/min Glucose Level 155 Calcium Level 8.5 Test 09/14/18 07:39 09/14/18 11:18 09/14/18 17:28 Bedside Glucose 160 89 64 L Subjective 24 Hr Interval Summary Musculoskeletal: bone/joint pain Exam/Review of Systems Exam Vitals Vital Signs Date Temp Pulse Resp B/P (MAP) Pulse Ox O2 O2 Flow FiO2 Time Delivery Rate 09/14/18 74 119/74 17:15 (89) 09/14/18 98.0 20 96 Room Air 16:09 09/14/18 2.0 11:48 09/13/18 21 18:52 Intake and Output 09/13/18 09/13/18 09/14/18 1515:00 23:00 07:00 IntakeIntake Total 2010 ml 250 ml OutputOutput Total 1600 ml 800 ml BalanceBalance 410 ml -550 ml Constitutional: alert, oriented Respiratory: clear to auscultation Cardiovascular: regular rate and rhythm Gastrointestinal: soft; No distended Musculoskeletal: No nl extremities to inspection Results Results 24hrs Laboratory Tests Test 09/13/18 20:05 09/14/18 02:12 09/14/18 02:26 09/14/18 06:10 Bedside Glucose 212 136 Vancomycin Level Trough 11.6 White Blood Count 7.5 # Red Blood Count 4.30 L Hemoglobin 10.5 L Hematocrit 34.2 L Mean Corpuscular Volume 79.5 L Mean Corpuscular 24.4 L Hemoglobin Mean Corpuscular 30.7 L Hemoglobin Concent Red Cell Distribution 16.2 H Width Platelet Count 185 Mean Platelet Volume 10.4 Immature Granulocytes % 1.200 H Neutrophils % 65.0 Lymphocytes % 22.8 Monocytes % 8.8 Eosinophils % 1.7 Basophils % 0.5 Nucleated Red Blood 0.0 Cells % Immature Granulocytes # 0.090 H Neutrophils # 4.9 Lymphocytes # 1.7 Monocytes # 0.7 Eosinophils # 0.1 Basophils # 0.0 Nucleated Red Blood 0.0 Cells # Sodium Level 140 Potassium Level 5.0 Chloride Level 105 Carbon Dioxide Level 27 Anion Gap 8 Blood Urea Nitrogen 26 H Creatinine 1.75 H Est Glomerular Filtrat 40 L Rate mL/min Glucose Level 155 Calcium Level 8.5 Test 09/14/18 07:39 09/14/18 11:18 09/14/18 17:28 Bedside Glucose 160 89 64 L Medications Medication Current Medications IV Flush (NS 3 ml) 3 ml PER PROTOCOL IV ; Start 09/10/18 at 05:00 Ondansetron HCl (Zofran Inj) 4 mg Q6H PRN IV NAUSEA/VOMITING Last administered on 09/10/18 09:43; Admin Dose 4 MG; Start 09/10/18 at 05:00 Nitroglycerin (Nitroglycerin (Sl Tab) 0.4 Mg) 1 tab Q5M PRN SL .CHEST PAIN; Start 09/10/18 at 05:00 Acetaminophen (Tylenol Tab) 650 mg Q6H PRN PO .PAIN 1-3 OR TEMP Last administered on 09/10/18 12:23; Admin Dose 650 MG; Start 09/10/18 at 05:00 Heparin Sodium (Porcine) (Heparin (5000 Units/1ml)) 5,000 unit Q12 SC Last administered on 09/14/18 08:32; Admin Dose 5,000 UNIT; Start 09/10/18 at 09:00 Albuterol/ Ipratropium (Duoneb) 3 ml Q2H RESP THERAPY PRN HHN SHORTNESS OF BREATH Last administered on 09/10/18at 08:40; Admin Dose 3 ML; Start 09/10/18 at 05:00 Alprazolam (Xanax) 0.5 mg TID PRN PO ANXIETY; Start 09/10/18 at 05:00 Aspirin (Aspirin) 81 mg DAILY PO Last administered on 09/14/18 08:27; Admin Dose 81 MG; Start 09/10/18 at 09:00 Atorvastatin Calcium (Lipitor) 80 mg HS PO Last administered on 09/13/18 20:12; Admin Dose 80 MG; Start 09/10/18 at 21:00 Carvedilol (Coreg) 6.25 mg BID PO Last administered on 09/14/18 08:28; Admin Dose 6.25 MG; Start 09/10/18 at 09:00 Furosemide (Lasix) 40 mg DAILY PO Last administered on 09/14/18 08:27; Admin Dose 40 MG; Start 09/10/18 at 09:00 Gabapentin (Neurontin) 300 mg TID PO Last administered on 09/14/18 12:23; Admin Dose 300 MG; Start 09/10/18 at 09:00 Hydralazine HCl (Apresoline) 10 mg Q12 PO Last administered on 09/13/18 20:04; Admin Dose 10 MG; Start 09/10/18 at 09:00 Isosorbide Dinitrate (Isordil) 20 mg TID PO Last administered on 09/14/18 12:23; Admin Dose 20 MG; Start 09/10/18 at 09:00 Montelukast Sodium (Singulair) 10 mg HS PO Last administered on 09/13/18 20:12; Admin Dose 10 MG; Start 09/10/18 at 21:00 Ranolazine (Ranexa) 1,000 mg Q12 PO Last administered on 09/14/18 10:04; Admin Dose 1,000 MG; Start 09/10/18 at 09:00 Tramadol HCl (Ultram) 100 mg Q6 PRN PO PAIN Last administered on 09/13/18 23:53; Admin Dose 100 MG; Start 09/10/18 at 05:00 Valproic Acid (Depakene) 250 mg BID PO Last administered on 09/14/18 10:35; Admin Dose 250 MG; Start 09/10/18 at 09:00 Fish Oil (Fish Oil) 2,000 mg BID PO Last administered on 09/14/18 10:04; Admin Dose 2,000 MG; Start 09/10/18 at 09:00 Diagnostic Test (Pha) (Accu-Chek) 1 ea 02 XX Last administered on 09/14/18 02:27; Admin Dose 1 EA; Start 09/11/18 at 02:00 Insulin Aspart (Novolog Insulin Pen) NOVOLOG *MODERATE* ALGORITHM WITH MEALS BEDTIME SC Last administered on 09/14/18 07:44; Admin Dose 2 UNIT; Start 09/10/18 at 07:55 Miscellaneous Information 1 ea NOTE XX ; Start 09/10/18 at 06:00 Glucose (Glutose) 15 gm Q15M PRN PO DECREASED GLUCOSE; Start 09/10/18 at 06:00 Glucose (Glutose) 22.5 gm Q15M PRN PO DECREASED GLUCOSE; Start 09/10/18 at 06:00 Dextrose (D50w Syringe) 25 ml Q15M PRN IV DECREASED GLUCOSE; Start 09/10/18 at 06:00 Dextrose (D50w Syringe) 50 ml Q15M PRN IV DECREASED GLUCOSE; Start 09/10/18 at 06:00 Glucagon (Glucagen) 1 mg Q15M PRN IM DECREASED GLUCOSE; Start 09/10/18 at 06:00 Glucose (Glutose) 15 gm Q15M PRN BUCCAL DECREASED GLUCOSE; Start 09/10/18 at 06:00 Sodium Chloride 1,000 ml @ 100 mls/hr Q10H IV Last administered on 09/13/18at 17:44; Admin Dose 100 MLS/HR; Start 09/10/18 at 15:30 Ceftriaxone Sodium 50 ml @ 100 mls/hr Q24H IVPB Last administered on 09/14/18at 14:59; Admin Dose 100 MLS/HR; Start 09/10/18 at 15:30 Vancomycin HCl (Vanco Iv Per Pharmacy) VANCOMYCIN PER PHARMACY PER PROTOCOL XX ; Start 09/12/18 at 02:30 Vancomycin HCl 1.5 gm/Sodium Chloride 250 ml @ 83.333 mls/ hr Q24H IVPB Last administered on 09/14/18at 03:04; Admin Dose 83.333 MLS/HR; Start 09/12/18 at 03:00 Insulin Glargine (Lantus) 44 units DAILY@0800 SC Last administered on 09/14/18 07:54; Admin Dose 44 UNITS; Start 09/14/18 at 08:00 Morphine Sulfate (morphine) 4 mg Q3H PRN IV SEVERE PAIN LEVEL 7-10 Last administered on 09/14/18at 15:09; Admin Dose 4 MG; Start 09/13/18 at 18:00 Insulin Aspart (Novolog Insulin Pen) 12 unit WITH MEALS SC ; Start 09/14/18 at 17:55 BRANDON WHITNEY Sep 14, 2018 18:04
[2018-09-14] MEDS: MONTELUKAST 10 MG TAB PO SCH (19:49)
[2018-09-14] MEDS: ATORVASTATIN 80 MG TAB PO SCH (19:49)
[2018-09-15] VITALS (11 sets, daily range): BP systolic 138–162; BP diastolic 63–79; PULSE 55–86; RESP 16–20
[2018-09-15] MEDS: VANCOMYCIN HCL 1.5 GM in SOD CHLORIDE 0.9% 250 ML IVPB SCH (02:25)
[2018-09-15] MEDS: ACCU-CHEK XX SCH (02:30)
[2018-09-15] MEDS: INSULIN ASPART [NOVOLOG] 3 ML PEN SC SCH ×7 (07:50→20:46)
[2018-09-15] MEDS: INSULIN GLARGINE [LANTus] (100 UNITS/ML) SYG SC SCH (08:00)
[2018-09-15] MEDS: VALPROIC ACID 250 MG CAP PO SCH ×2 (08:06→21:45)
[2018-09-15] MEDS: FISH OIL 1,000 MG CAP PO SCH ×2 (08:07→20:21)
[2018-09-15] MEDS: GABAPENTIN 300 MG CAP PO SCH ×3 (08:07→20:21)
[2018-09-15] MEDS: RANOLAZINE (SR) 500 MG TAB PO SCH ×2 (08:07→20:17)
[2018-09-15] MEDS: ASPIRIN 81 MG TAB PO SCH (08:08)
[2018-09-15] MEDS: FUROSEMIDE 40 MG TAB PO SCH (08:08)
[2018-09-15] MEDS: ISOSORBIDE DINITRATE 20 MG TAB PO SCH ×3 (08:11→20:46)
[2018-09-15] MEDS: HEPARIN 5,000 UNIT/1 ML VIAL SC SCH ×2 (08:13→20:44)
--- NOTE | 2018-09-15 11:47 | CONS ---
Assessment/Plan Assessment/Plan Assessment/Plan (Daily) 1. acute kidney injury due to ATN From pneumonia 2. sepsis due to pneumonia 3. pneumonia, worried about community acquired PNA 4. h/o HTn 5. h/o Myocardial infarction 6. h/o Lithotripsy before for left kidney stone Plan: BUN/Cr improved to 28/1.9, Bp stable IV abx for PNA and Sepsis, renally dose all abx and monitor electrolyte S/P left groin LN biopsy negative for malignancy , acute lymphadenitis will follow up Consultation Date/Type/Reason Admit Date/Time Sep 09, 2018 at 21:23 Initial Consult Date 09/10/18 Type of Consult NEPHROLOGY Requesting Provider: DERIK LOVE MD Date/Time of Note DATE: 09/15/18 TIME: 11:47 Exam/Review of Systems Exam Vitals Vital Signs Date Temp Pulse Resp B/P (MAP) Pulse Ox O2 O2 Flow FiO2 Time Delivery Rate 09/15/18 98.9 82 16 143/68 98 11:21 (93) 09/15/18 Nasal 2.0 08:30 Cannula 09/13/18 21 18:52 Intake and Output 09/14/18 09/14/18 09/15/18 1414:59 22:59 06:59 IntakeIntake Total 730 ml 250 ml BalanceBalance 730 ml 250 ml Exam Exam Constitutional: alert, awake, Respiratory: diminished breath sounds, other (RLL Crackles ) Cardiovascular: regular rate and rhythm Gastrointestinal: soft, non-tender Musculoskeletal: nl extremities to inspection Extremities: normal pulses 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: 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, nl mental status, nl speech, nl strength Results Result Diagram: 09/15/18 0545 09/15/18 0545 Results 24hrs Laboratory Tests Test 09/14/18 17:28 09/14/18 17:46 09/14/18 18:07 09/14/18 19:46 Bedside Glucose 64 L 71 93 131 Test 09/15/18 02:22 09/15/18 05:45 09/15/18 07:49 09/15/18 11:26 Bedside Glucose 120 112 White Blood Count 8.4 Red Blood Count 4.34 L Hemoglobin 10.7 L Hematocrit 34.7 L Mean Corpuscular 80.0 L Volume Mean Corpuscular 24.7 L Hemoglobin Mean Corpuscular 30.8 L Hemoglobin Concent Red Cell Distribution 16.4 H Width Platelet Count 198 Mean Platelet Volume 10.8 H Immature Granulocytes 1.800 H % Neutrophils % 70.5 Lymphocytes % 17.0 Monocytes % 8.5 Eosinophils % 1.7 Basophils % 0.5 Nucleated Red Blood 0.0 Cells % Immature Granulocytes 0.150 H # Neutrophils # 6.0 Lymphocytes # 1.4 Monocytes # 0.7 Eosinophils # 0.1 Basophils # 0.0 Nucleated Red Blood 0.0 Cells # Sodium Level 140 Potassium Level 4.4 Chloride Level 104 Carbon Dioxide Level 25 Anion Gap 11 Blood Urea Nitrogen 28 H Creatinine 1.90 H Est Glomerular 36 L Filtrat Rate mL/min Glucose Level 106 # Calcium Level 8.7 Lab Scanned Report REFERENCE LAB Medications Medication Current Medications IV Flush (NS 3 ml) 3 ml PER PROTOCOL IV ; Start 09/10/18 at 05:00 Ondansetron HCl (Zofran Inj) 4 mg Q6H PRN IV NAUSEA/VOMITING Last administered on 09/10/18at 09:43; Admin Dose 4 MG; Start 09/10/18 at 05:00 Nitroglycerin (Nitroglycerin (Sl Tab) 0.4 Mg) 1 tab Q5M PRN SL .CHEST PAIN; Start 09/10/18 at 05:00 Acetaminophen (Tylenol Tab) 650 mg Q6H PRN PO .PAIN 1-3 OR TEMP Last administered on 09/10/18at 12:23; Admin Dose 650 MG; Start 09/10/18 at 05:00 Heparin Sodium (Porcine) (Heparin (5000 Units/1ml)) 5,000 unit Q12 SC Last administered on 09/15/18at 08:13; Admin Dose 5,000 UNIT; Start 09/10/18 at 09:00 Albuterol/ Ipratropium (Duoneb) 3 ml Q2H RESP THERAPY PRN HHN SHORTNESS OF BREATH Last administered on 09/10/18at 08:40; Admin Dose 3 ML; Start 09/10/18 at 05:00 Alprazolam (Xanax) 0.5 mg TID PRN PO ANXIETY; Start 09/10/18 at 05:00 Aspirin (Aspirin) 81 mg DAILY PO Last administered on 09/15/18 08:08; Admin Dose 81 MG; Start 09/10/18 at 09:00 Atorvastatin Calcium (Lipitor) 80 mg HS PO Last administered on 09/14/18 19:49; Admin Dose 80 MG; Start 09/10/18 at 21:00 Carvedilol (Coreg) 6.25 mg BID PO Last administered on 09/14/18 19:49; Admin Dose 6.25 MG; Start 09/10/18 at 09:00 Furosemide (Lasix) 40 mg DAILY PO Last administered on 09/15/18 08:08; Admin Dose 40 MG; Start 09/10/18 at 09:00 Gabapentin (Neurontin) 300 mg TID PO Last administered on 09/15/18 08:07; Admin Dose 300 MG; Start 09/10/18 at 09:00 Hydralazine HCl (Apresoline) 10 mg Q12 PO Last administered on 09/15/18 08:09; Admin Dose 10 MG; Start 09/10/18 at 09:00 Isosorbide Dinitrate (Isordil) 20 mg TID PO Last administered on 09/14/18 19:50; Admin Dose 20 MG; Start 09/10/18 at 09:00 Montelukast Sodium (Singulair) 10 mg HS PO Last administered on 09/14/18 19:49; Admin Dose 10 MG; Start 09/10/18 at 21:00 Ranolazine (Ranexa) 1,000 mg Q12 PO Last administered on 09/15/18 08:07; Admin Dose 1,000 MG; Start 09/10/18 at 09:00 Tramadol HCl (Ultram) 100 mg Q6 PRN PO PAIN Last administered on 09/13/18 23:53; Admin Dose 100 MG; Start 09/10/18 at 05:00 Valproic Acid (Depakene) 250 mg BID PO Last administered on 09/15/18 08:06; Admin Dose 250 MG; Start 09/10/18 at 09:00 Fish Oil (Fish Oil) 2,000 mg BID PO Last administered on 09/15/18 08:07; Admin Dose 2,000 MG; Start 09/10/18 at 09:00 Insulin Aspart (Novolog Insulin Pen) NOVOLOG *MODERATE* ALGORITHM WITH MEALS BEDTIME SC Last administered on 09/14/18 07:44; Admin Dose 2 UNIT; Start 09/10/18 at 07:55 Miscellaneous Information 1 ea NOTE XX ; Start 09/10/18 at 06:00 Glucose (Glutose) 15 gm Q15M PRN PO DECREASED GLUCOSE; Start 09/10/18 at 06:00 Glucose (Glutose) 22.5 gm Q15M PRN PO DECREASED GLUCOSE; Start 09/10/18 at 06:00 Dextrose (D50w Syringe) 25 ml Q15M PRN IV DECREASED GLUCOSE; Start 09/10/18 at 06:00 Dextrose (D50w Syringe) 50 ml Q15M PRN IV DECREASED GLUCOSE; Start 09/10/18 at 06:00 Glucagon (Glucagen) 1 mg Q15M PRN IM DECREASED GLUCOSE; Start 09/10/18 at 06:00 Glucose (Glutose) 15 gm Q15M PRN BUCCAL DECREASED GLUCOSE; Start 09/10/18 at 06:00 Ceftriaxone Sodium 50 ml @ 100 mls/hr Q24H IVPB Last administered on 09/14/18at 14:59; Admin Dose 100 MLS/HR; Start 09/10/18 at 15:30 Vancomycin HCl (Vanco Iv Per Pharmacy) VANCOMYCIN PER PHARMACY PER PROTOCOL XX ; Start 09/12/18 at 02:30 Vancomycin HCl 1.5 gm/Sodium Chloride 250 ml @ 83.333 mls/ hr Q24H IVPB Last administered on 09/15/18at 02:25; Admin Dose 83.333 MLS/HR; Start 09/12/18 at 03:00 Insulin Glargine (Lantus) 44 units DAILY@0800 SC Last administered on 09/14/18at 07:54; Admin Dose 44 UNITS; Start 09/14/18 at 08:00 Morphine Sulfate (morphine) 4 mg Q3H PRN IV SEVERE PAIN LEVEL 7-10 Last administered on 09/14/18at 21:29; Admin Dose 4 MG; Start 09/13/18 at 18:00 Insulin Aspart (Novolog Insulin Pen) 12 unit WITH MEALS SC Last administered on 09/15/18at 08:14; Admin Dose 12 UNIT; Start 09/14/18 at 17:55 ANDREW BOWLING MD Sep 15, 2018 11:47
[2018-09-15] MEDS: morphine 4 MG/ML VIAL IV PRN ×2 (12:39→20:23)
--- NOTE | 2018-09-15 14:26 | CONS ---
Assessment/Plan Assessment/Plan Hospital Course (Demo Recall) No acute events, patient is alert and feels better, still with lower extremity pain, no fevers overnight WBC 8.4 neutrophils 70.5 BUN 28 creatinine 1.90. Vanco trough yesterday 11.6. Microbiology: Blood culture on admission grew beta-hemolytic strep species CT of the abdomen and pelvis on admission revealed retroperitoneal left iliac chain and left inguinal lymphadenopathy with largest lymph node measures 1.5 cm in the left inguinal region. Moderate diffuse peribronchial thickening polanco ggestive of bronchitis with likely superimposed mass mild interstitial edema. Splenomegaly, unchanged since [address] CT. Antimicrobials: Rocephin Vanco Physical examination: Well-nourished well-developed middle-aged [place]-speaking man who is alert in no distress. Head atraumatic normocephalic. Neck is supple. Chest rise symmetrical, breath sounds diminished bases. Heart: S1-S2. Abdomen distended soft bowel sounds present. Extremities without cyanosis, tenterness, warmth and mild erythema L groin area. Assessment: 1. Sepsis present on admission 2. Beta-hemolytic strep bacteremia 3. LLE cellulitis 4. Lymphadenopathy status post left groin lymph node biopsy==> neg malignancy 5. Acute kidney failure 6. Diabetes 7. Ischemic cardiomyopathy 7. Obesity Plan: Remains stable, 2D echo revealed no vegetations, repeat bld cx neg, continue antibiotics Consultation Date/Type/Reason Admit Date/Time Sep 09, 2018 at 21:23 Initial Consult Date 09/10/18 Type of Consult id Requesting Provider: DERIK LOVE MD Date/Time of Note DATE: 09/15/18 TIME: 14:24 Exam/Review of Systems Exam Vitals Vital Signs Date Temp Pulse Resp B/P (MAP) Pulse Ox O2 O2 Flow FiO2 Time Delivery Rate 09/15/18 98.9 82 16 143/68 98 11:21 (93) 09/15/18 Nasal 2.0 08:30 Cannula 09/13/18 21 18:52 Intake and Output 09/14/18 09/14/18 09/15/18 1515:00 23:00 07:00 IntakeIntake Total 730 ml 250 ml BalanceBalance 730 ml 250 ml Results Result Diagram: 09/15/18 0545 09/15/18 0545 Results 24hrs Laboratory Tests Test 09/14/18 17:28 09/14/18 17:46 09/14/18 18:07 09/14/18 19:46 Bedside Glucose 64 L 71 93 131 Test 09/15/18 02:22 09/15/18 05:45 09/15/18 07:49 09/15/18 11:26 Bedside Glucose 120 112 White Blood Count 8.4 Red Blood Count 4.34 L Hemoglobin 10.7 L Hematocrit 34.7 L Mean Corpuscular 80.0 L Volume Mean Corpuscular 24.7 L Hemoglobin Mean Corpuscular 30.8 L Hemoglobin Concent Red Cell Distribution 16.4 H Width Platelet Count 198 Mean Platelet Volume 10.8 H Immature Granulocytes 1.800 H % Neutrophils % 70.5 Lymphocytes % 17.0 Monocytes % 8.5 Eosinophils % 1.7 Basophils % 0.5 Nucleated Red Blood 0.0 Cells % Immature Granulocytes 0.150 H # Neutrophils # 6.0 Lymphocytes # 1.4 Monocytes # 0.7 Eosinophils # 0.1 Basophils # 0.0 Nucleated Red Blood 0.0 Cells # Sodium Level 140 Potassium Level 4.4 Chloride Level 104 Carbon Dioxide Level 25 Anion Gap 11 Blood Urea Nitrogen 28 H Creatinine 1.90 H Est Glomerular 36 L Filtrat Rate mL/min Glucose Level 106 # Calcium Level 8.7 Lab Scanned Report REFERENCE LAB Test 09/15/18 12:04 Bedside Glucose 175 Medications Medication Current Medications IV Flush (NS 3 ml) 3 ml PER PROTOCOL IV ; Start 09/10/18 at 05:00 Ondansetron HCl (Zofran Inj) 4 mg Q6H PRN IV NAUSEA/VOMITING Last administered on 09/10/18at 09:43; Admin Dose 4 MG; Start 09/10/18 at 05:00 Nitroglycerin (Nitroglycerin (Sl Tab) 0.4 Mg) 1 tab Q5M PRN SL .CHEST PAIN; Start 09/10/18 at 05:00 Acetaminophen (Tylenol Tab) 650 mg Q6H PRN PO .PAIN 1-3 OR TEMP Last administered on 09/10/18at 12:23; Admin Dose 650 MG; Start 09/10/18 at 05:00 Heparin Sodium (Porcine) (Heparin (5000 Units/1ml)) 5,000 unit Q12 SC Last administered on 09/15/18at 08:13; Admin Dose 5,000 UNIT; Start 09/10/18 at 09:00 Albuterol/ Ipratropium (Duoneb) 3 ml Q2H RESP THERAPY PRN HHN SHORTNESS OF BREATH Last administered on 09/10/18 08:40; Admin Dose 3 ML; Start 09/10/18 at 05:00 Alprazolam (Xanax) 0.5 mg TID PRN PO ANXIETY; Start 09/10/18 at 05:00 Aspirin (Aspirin) 81 mg DAILY PO Last administered on 09/15/18 08:08; Admin Dose 81 MG; Start 09/10/18 at 09:00 Atorvastatin Calcium (Lipitor) 80 mg HS PO Last administered on 09/14/18 19:49; Admin Dose 80 MG; Start 09/10/18 at 21:00 Carvedilol (Coreg) 6.25 mg BID PO Last administered on 09/14/18 19:49; Admin Dose 6.25 MG; Start 09/10/18 at 09:00 Furosemide (Lasix) 40 mg DAILY PO Last administered on 09/15/18 08:08; Admin Dose 40 MG; Start 09/10/18 at 09:00 Gabapentin (Neurontin) 300 mg TID PO Last administered on 09/15/18 12:38; Admin Dose 300 MG; Start 09/10/18 at 09:00 Hydralazine HCl (Apresoline) 10 mg Q12 PO Last administered on 09/15/18 08:09; Admin Dose 10 MG; Start 09/10/18 at 09:00 Isosorbide Dinitrate (Isordil) 20 mg TID PO Last administered on 09/15/18 12:39; Admin Dose 20 MG; Start 09/10/18 at 09:00 Montelukast Sodium (Singulair) 10 mg HS PO Last administered on 09/14/18 19:49; Admin Dose 10 MG; Start 09/10/18 at 21:00 Ranolazine (Ranexa) 1,000 mg Q12 PO Last administered on 09/15/18 08:07; Admin Dose 1,000 MG; Start 09/10/18 at 09:00 Tramadol HCl (Ultram) 100 mg Q6 PRN PO PAIN Last administered on 09/13/18 23:53; Admin Dose 100 MG; Start 09/10/18 at 05:00 Valproic Acid (Depakene) 250 mg BID PO Last administered on 09/15/18 08:06; Admin Dose 250 MG; Start 09/10/18 at 09:00 Fish Oil (Fish Oil) 2,000 mg BID PO Last administered on 09/15/18 08:07; Admin Dose 2,000 MG; Start 09/10/18 at 09:00 Insulin Aspart (Novolog Insulin Pen) NOVOLOG *MODERATE* ALGORITHM WITH MEALS BEDTIME SC Last administered on 09/15/18 12:46; Admin Dose 2 UNIT; Start 09/10/18 at 07:55 Miscellaneous Information 1 ea NOTE XX ; Start 09/10/18 at 06:00 Glucose (Glutose) 15 gm Q15M PRN PO DECREASED GLUCOSE; Start 09/10/18 at 06:00 Glucose (Glutose) 22.5 gm Q15M PRN PO DECREASED GLUCOSE; Start 09/10/18 at 06:00 Dextrose (D50w Syringe) 25 ml Q15M PRN IV DECREASED GLUCOSE; Start 09/10/18 at 06:00 Dextrose (D50w Syringe) 50 ml Q15M PRN IV DECREASED GLUCOSE; Start 09/10/18 at 06:00 Glucagon (Glucagen) 1 mg Q15M PRN IM DECREASED GLUCOSE; Start 09/10/18 at 06:00 Glucose (Glutose) 15 gm Q15M PRN BUCCAL DECREASED GLUCOSE; Start 09/10/18 at 06:00 Ceftriaxone Sodium 50 ml @ 100 mls/hr Q24H IVPB Last administered on 09/14/18 14:59; Admin Dose 100 MLS/HR; Start 09/10/18 at 15:30 Vancomycin HCl (Vanco Iv Per Pharmacy) VANCOMYCIN PER PHARMACY PER PROTOCOL XX ; Start 09/12/18 at 02:30 Vancomycin HCl 1.5 gm/Sodium Chloride 250 ml @ 83.333 mls/ hr Q24H IVPB Last administered on 09/15/18 02:25; Admin Dose 83.333 MLS/HR; Start 09/12/18 at 03:00 Insulin Glargine (Lantus) 44 units DAILY@0800 SC Last administered on 09/14/18 07:54; Admin Dose 44 UNITS; Start 09/14/18 at 08:00 Morphine Sulfate (morphine) 4 mg Q3H PRN IV SEVERE PAIN LEVEL 7-10 Last administered on 3/4/19at 12:39; Admin Dose 4 MG; Start 09/13/18 at 18:00 Insulin Aspart (Novolog Insulin Pen) 12 unit WITH MEALS SC Last administered on 09/15/18at 12:49; Admin Dose 12 UNIT; Start 09/14/18 at 17:55 BONNIE MONTILLA NP Sep 15, 2018 14:26
--- NOTE | 2018-09-15 17:00 | PN ---
Date/Time of Note Date/Time of Note DATE: 09/15/18 TIME: 17:00 Assessment/Plan VTE Prophylaxis Risk score (from Nsg)>0 risk: 2 SCD applied (from Nsg): Yes Pharmacological prophylaxis: heparin Lines/Catheters IV Catheter Type (from Nrsg): Saline Lock Urinary Cath still in place: No Assessment/Plan Hospital Course 1. Sepsis secondary to left lower extremity infection and/or bronchitis Continue vancomycin and Rocephin Blood culture does show hemolytic strep and staph Repeat cultures are negative Echo shows no vegetations IV fluids ID consultation appreciated 2. Acute respiratory distress secondary to bronchitis/pneumonia-resolved Continue IV antibiotics Continue supplemental oxygen as needed 3. Type 1 diabetes with hyperglycemia-uncontrolled A1c at 11.8 Decreased mealtime insulin due to episode of hypoglycemia, continue basal insulin 4. Left inguinal lymphadenopathy and tenderness secondary to left lower extremity cellulitis CT abdomen shows retroperitoneal , left iliac chain and left inguinal lymphadenopathy with largest lymph node measures 1.8 cm in the left inguinal region CT-guided needle biopsy has been done and pathology is negative for malignancy, nodes are reactive likely secondary to infection Oncology consultation with Dr. Rosales appreciated Continue antibiotics and pain control Patient is having difficulty ambulating secondary to lower extremity weakness and pain, continue PT 5. CKD Monitor 6. Ischemic cardiomyopathy (EF 45% in 2016) Continue home meds 7. History of coronary disease with multiple stents in the past Continue cardiac meds 8. Hypertension Continue home meds Prophylaxis: Heparin DC planning: Patient is still having pain in the left lower extremity but is improving, patient also reports significant weakness in the lower extremities reports difficulty ambulating, continue PT and antibiotics, patient prefers to be discharged home rather than [facility], anticipate DC home in 1-2 days if patient can ambulate Result Diagram: 09/15/18 0545 09/15/18 0545 Results 24hrs Laboratory Tests Test 09/14/18 17:28 09/14/18 17:46 09/14/18 18:07 09/14/18 19:46 Bedside Glucose 64 L 71 93 131 Test 09/15/18 02:22 09/15/18 05:45 09/15/18 07:49 09/15/18 11:26 Bedside Glucose 120 112 White Blood Count 8.4 Red Blood Count 4.34 L Hemoglobin 10.7 L Hematocrit 34.7 L Mean Corpuscular 80.0 L Volume Mean Corpuscular 24.7 L Hemoglobin Mean Corpuscular 30.8 L Hemoglobin Concent Red Cell Distribution 16.4 H Width Platelet Count 198 Mean Platelet Volume 10.8 H Immature Granulocytes 1.800 H % Neutrophils % 70.5 Lymphocytes % 17.0 Monocytes % 8.5 Eosinophils % 1.7 Basophils % 0.5 Nucleated Red Blood 0.0 Cells % Immature Granulocytes 0.150 H # Neutrophils # 6.0 Lymphocytes # 1.4 Monocytes # 0.7 Eosinophils # 0.1 Basophils # 0.0 Nucleated Red Blood 0.0 Cells # Sodium Level 140 Potassium Level 4.4 Chloride Level 104 Carbon Dioxide Level 25 Anion Gap 11 Blood Urea Nitrogen 28 H Creatinine 1.90 H Est Glomerular 36 L Filtrat Rate mL/min Glucose Level 106 # Calcium Level 8.7 Lab Scanned Report REFERENCE LAB Test 09/15/18 12:04 Bedside Glucose 175 Subjective 24 Hr Interval Summary Free Text/Dictation Leg feels better but still painful Difficulty with ambulation Exam/Review of Systems Exam Vitals Vital Signs Date Temp Pulse Resp B/P (MAP) Pulse Ox O2 O2 Flow FiO2 Time Delivery Rate 09/15/18 85 16:16 09/15/18 97.8 16 145/65 98 15:20 (91) 09/15/18 Nasal 2.0 08:30 Cannula 09/13/18 21 18:52 Intake and Output 09/14/18 09/14/18 09/15/18 1515:00 23:00 07:00 IntakeIntake Total 730 ml 250 ml BalanceBalance 730 ml 250 ml Constitutional: alert, oriented, well developed Psych: no complaints, nl mood/affect Head: normocephalic, atraumatic Eyes: nl conjunctiva, EOMI, nl lids, nl sclera, PERRL ENMT: nl external ears & nose, nl lips & teeth, nl nasal mucosa & septum Neck: supple, non-tender Respiratory: clear to auscultation, normal air movement Cardiovascular: regular rate and rhythm, nl pulses Gastrointestinal: soft, nl liver, spleen, non-tender Musculoskeletal: nl extremities to inspection, nl gait and stance Extremities: normal pulses 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, nl mental status, nl speech, nl strength Skin: nl turgor; No rash or lesions Lymph: nl lymph nodes Results Results 24hrs Laboratory Tests Test 09/14/18 17:28 09/14/18 17:46 09/14/18 18:07 09/14/18 19:46 Bedside Glucose 64 L 71 93 131 Test 09/15/18 02:22 09/15/18 05:45 09/15/18 07:49 09/15/18 11:26 Bedside Glucose 120 112 White Blood Count 8.4 Red Blood Count 4.34 L Hemoglobin 10.7 L Hematocrit 34.7 L Mean Corpuscular 80.0 L Volume Mean Corpuscular 24.7 L Hemoglobin Mean Corpuscular 30.8 L Hemoglobin Concent Red Cell Distribution 16.4 H Width Platelet Count 198 Mean Platelet Volume 10.8 H Immature Granulocytes 1.800 H % Neutrophils % 70.5 Lymphocytes % 17.0 Monocytes % 8.5 Eosinophils % 1.7 Basophils % 0.5 Nucleated Red Blood 0.0 Cells % Immature Granulocytes 0.150 H # Neutrophils # 6.0 Lymphocytes # 1.4 Monocytes # 0.7 Eosinophils # 0.1 Basophils # 0.0 Nucleated Red Blood 0.0 Cells # Sodium Level 140 Potassium Level 4.4 Chloride Level 104 Carbon Dioxide Level 25 Anion Gap 11 Blood Urea Nitrogen 28 H Creatinine 1.90 H Est Glomerular 36 L Filtrat Rate mL/min Glucose Level 106 # Calcium Level 8.7 Lab Scanned Report REFERENCE LAB Test 09/15/18 12:04 Bedside Glucose 175 Medications Medication Current Medications IV Flush (NS 3 ml) 3 ml PER PROTOCOL IV ; Start 09/10/18 at 05:00 Ondansetron HCl (Zofran Inj) 4 mg Q6H PRN IV NAUSEA/VOMITING Last administered on 09/10/18at 09:43; Admin Dose 4 MG; Start 09/10/18 at 05:00 Nitroglycerin (Nitroglycerin (Sl Tab) 0.4 Mg) 1 tab Q5M PRN SL .CHEST PAIN; Start 09/10/18 at 05:00 Acetaminophen (Tylenol Tab) 650 mg Q6H PRN PO .PAIN 1-3 OR TEMP Last a dministered on 09/10/18at 12:23; Admin Dose 650 MG; Start 09/10/18 at 05:00 Heparin Sodium (Porcine) (Heparin (5000 Units/1ml)) 5,000 unit Q12 SC Last administered on 09/15/18at 08:13; Admin Dose 5,000 UNIT; Start 09/10/18 at 09:00 Albuterol/ Ipratropium (Duoneb) 3 ml Q2H RESP THERAPY PRN HHN SHORTNESS OF BREATH Last administered on 09/10/18 08:40; Admin Dose 3 ML; Start 09/10/18 at 05:00 Alprazolam (Xanax) 0.5 mg TID PRN PO ANXIETY; Start 09/10/18 at 05:00 Aspirin (Aspirin) 81 mg DAILY PO Last administered on 09/15/18 08:08; Admin Dose 81 MG; Start 09/10/18 at 09:00 Atorvastatin Calcium (Lipitor) 80 mg HS PO Last administered on 09/14/18 19:49; Admin Dose 80 MG; Start 09/10/18 at 21:00 Carvedilol (Coreg) 6.25 mg BID PO Last administered on 09/14/18 19:49; Admin Dose 6.25 MG; Start 09/10/18 at 09:00 Furosemide (Lasix) 40 mg DAILY PO Last administered on 09/15/18 08:08; Admin Dose 40 MG; Start 09/10/18 at 09:00 Gabapentin (Neurontin) 300 mg TID PO Last administered on 09/15/18 12:38; Admin Dose 300 MG; Start 09/10/18 at 09:00 Hydralazine HCl (Apresoline) 10 mg Q12 PO Last administered on 09/15/18 08:09; Admin Dose 10 MG; Start 09/10/18 at 09:00 Isosorbide Dinitrate (Isordil) 20 mg TID PO Last administered on 09/15/18 12:39; Admin Dose 20 MG; Start 09/10/18 at 09:00 Montelukast Sodium (Singulair) 10 mg HS PO Last administered on 09/14/18 19:49; Admin Dose 10 MG; Start 09/10/18 at 21:00 Ranolazine (Ranexa) 1,000 mg Q12 PO Last administered on 09/15/18 08:07; Admin Dose 1,000 MG; Start 09/10/18 at 09:00 Tramadol HCl (Ultram) 100 mg Q6 PRN PO PAIN Last administered on 09/13/18 23:53; Admin Dose 100 MG; Start 09/10/18 at 05:00 Valproic Acid (Depakene) 250 mg BID PO Last administered on 09/15/18 08:06; Admin Dose 250 MG; Start 09/10/18 at 09:00 Fish Oil (Fish Oil) 2,000 mg BID PO Last administered on 09/15/18at 08:07; Admin Dose 2,000 MG; Start 09/10/18 at 09:00 Insulin Aspart (Novolog Insulin Pen) NOVOLOG *MODERATE* ALGORITHM WITH MEALS BEDTIME SC Last administered on 09/15/18at 12:46; Admin Dose 2 UNIT; Start 09/10/18 at 07:55 Miscellaneous Information 1 ea NOTE XX ; Start 09/10/18 at 06:00 Glucose (Glutose) 15 gm Q15M PRN PO DECREASED GLUCOSE; Start 09/10/18 at 06:00 Glucose (Glutose) 22.5 gm Q15M PRN PO DECREASED GLUCOSE; Start 09/10/18 at 06:00 Dextrose (D50w Syringe) 25 ml Q15M PRN IV DECREASED GLUCOSE; Start 09/10/18 at 06:00 Dextrose (D50w Syringe) 50 ml Q15M PRN IV DECREASED GLUCOSE; Start 09/10/18 at 06:00 Glucagon (Glucagen) 1 mg Q15M PRN IM DECREASED GLUCOSE; Start 09/10/18 at 06:00 Glucose (Glutose) 15 gm Q15M PRN BUCCAL DECREASED GLUCOSE; Start 09/10/18 at 06:00 Ceftriaxone Sodium 50 ml @ 100 mls/hr Q24H IVPB Last administered on 09/14/18at 14:59; Admin Dose 100 MLS/HR; Start 09/10/18 at 15:30 Vancomycin HCl (Vanco Iv Per Pharmacy) VANCOMYCIN PER PHARMACY PER PROTOCOL XX ; Start 09/12/18 at 02:30 Vancomycin HCl 1.5 gm/Sodium Chloride 250 ml @ 83.333 mls/ hr Q24H IVPB Last administered on 09/15/18at 02:25; Admin Dose 83.333 MLS/HR; Start 09/12/18 at 03:00 Insulin Glargine (Lantus) 44 units DAILY@0800 SC Last administered on 09/14/18at 07:54; Admin Dose 44 UNITS; Start 09/14/18 at 08:00 Morphine Sulfate (morphine) 4 mg Q3H PRN IV SEVERE PAIN LEVEL 7-10 Last administered on 09/15/18at 12:39; Admin Dose 4 MG; Start 09/13/18 at 18:00 Insulin Aspart (Novolog Insulin Pen) 12 unit WITH MEALS SC Last administered on 09/15/18at 12:49; Admin Dose 12 UNIT; Start 09/14/18 at 17:55 Miscellaneous Information (*Rx Drug Level Order Reminder*) VANCO TR 09/16 AT 0200 ONCE ONCE XX ; Start 09/16/18 at 02:00; Stop 09/16/18 at 02:01 DAVID KLEIN MD Sep 15, 2018 17:00
[2018-09-15] MEDS: CEFTRIAXONE 1 GM/50 ML (PMX) 50 ML IVPB SCH (17:19)
[2018-09-15] MEDS ORDERED: INSULIN ASPART [NOVOLOG] 3 ML PEN SC ONE (17:30)
[2018-09-15] MEDS: ATORVASTATIN 80 MG TAB PO SCH (20:21)
[2018-09-15] MEDS: MONTELUKAST 10 MG TAB PO SCH (20:21)
--- NOTE | 2018-09-15 20:49 | PN ---
DATE: 09/15/2018 SUBJECTIVE: The patient continues to complain of left lower extremity pain. Now is complaining more of distal pain than proximal. Also states he has had shaking chills. OBJECTIVE: GENERAL: The patient is a well-developed, obese male who is in no acute distress. VITAL SIGNS: Temperature 97.8 axillary, pulse 80 per minute and regular, respirations 16, blood pres sure 145/65. SKIN: No ecchymosis. No petechiae or rashes. There is erythema and stasis changes in the left pret ibial area. HEENT: Normocephalic. No evidence of trauma. Pupils equal, round, react to light and accommodation . Sclerae nonicteric. Oral mucosa is moist without lesions. NECK: Supple. No jugular venous distention or thyroid enlargement. CHEST: Clear except for basilar rales which do clear on cough and deep inspiration. HEART: Regular sinus rhythm, no S3, S4 or murmurs. No rubs. ABDOMEN: Obese without masses or ascites. EXTREMITIES: Good range of motion. No clubbing or cyanosis. There is erythema and stasis changes i n the left pretibial area. It is warm to the touch and tender to the touch. Less erythema and tende rness in the left inguinal area. LABORATORY DATA: White count 8400 with absolute neutrophil count of 6000, hemoglobin 10.7, hematocri t 34.7 and platelet count 198,000. The biopsy of lymph node shows no evidence of acute lymphadenitis and mild cellulitis in the adjacent soft tissue. There is no evidence of malignancy. ASSESSMENT: 1. Cellulitis of left lower extremity. 2. Left inguinal lymphadenopathy secondary to #1. 3. Diabetes type 1. 4. Gram-positive sepsis. 5. Chronic obstructive pulmonary disease. 6. Idiopathic cardiomyopathy 7. Hypertension. DISCUSSION: As noted, the lymph node biopsy reveals lymphadenitis and also cellulitis in the adjacen t tissue. This is consistent with the physical findings and not consistent with any malignancy. The coagulase negative staph seen originally is sensitive to multiple agents, excluding erythromycin and penicillin. The patient is presently is on vancomycin as well as ceftriaxone. The culture sensi tivities suggests that the organism is sensitive to either of these. Dictated By: GEORGE VO MD SR/NTS Conf#: [id number] DID#: [id number] CC: DERIK LOVE MD;*[facility]*
[2018-09-16] VITALS: BP 141/74; PULSE 77; RESP 18
[2018-09-16 01:19] VITALS: BP 159/80; PULSE 81; RESP 18
[2018-09-16] MEDS: morphine 4 MG/ML VIAL IV PRN ×3 (02:04→10:00)
[2018-09-16] MEDS: VANCOMYCIN HCL 1.5 GM in SOD CHLORIDE 0.9% 250 ML IVPB SCH (06:16)
[2018-09-16 08:00] VITALS: BP 136/73; PULSE 83; RESP 18
[2018-09-16] MEDS: ASPIRIN 81 MG TAB PO SCH (08:55)
[2018-09-16] MEDS: FISH OIL 1,000 MG CAP PO SCH ×2 (08:55→21:14)
[2018-09-16] MEDS: GABAPENTIN 300 MG CAP PO SCH ×3 (08:55→21:15)
[2018-09-16] MEDS: FUROSEMIDE 40 MG TAB PO SCH (08:57)
[2018-09-16] MEDS: HEPARIN 5,000 UNIT/1 ML VIAL SC SCH ×2 (08:58→21:23)
[2018-09-16] MEDS: INSULIN ASPART [NOVOLOG] 3 ML PEN SC SCH ×7 (08:59→21:00)
[2018-09-16] MEDS: INSULIN GLARGINE [LANTus] (100 UNITS/ML) SYG SC SCH (10:20)
[2018-09-16] MEDS: VALPROIC ACID 250 MG CAP PO SCH ×2 (11:01→21:15)
[2018-09-16] MEDS: RANOLAZINE (SR) 500 MG TAB PO SCH ×2 (11:01→13:01)
[2018-09-16] MEDS: ISOSORBIDE DINITRATE 20 MG TAB PO SCH ×3 (11:01→21:15)
--- NOTE | 2018-09-16 12:14 | CONS ---
Assessment/Plan Assessment/Plan Hospital Course (Demo Recall) Patient still has significant amount of pain in his left upper extremity and unable to walk his left lower extremity still with significant erythema. Left groin area pain is much better. Patient is afebrile. BUN 25 creatinine 1.93 today. Vanco trough 14.5 Microbiology: Blood culture on admission grew beta-hemolytic strep species CT of the abdomen and pelvis on admission revealed retroperitoneal left iliac chain and left inguinal lymphadenopathy with largest lymph node measures 1.5 cm in the left inguinal region. Moderate diffuse peribronchial thickening suggestive of bronchitis with likely superimposed mass mild interstitial edema. Splenomegaly, unchanged since 2017 CT. Antimicrobials: Rocephin Vanco Physical examination: Well-nourished well-developed middle-aged Hungarian-speaking man who is alert in no distress. Head atraumatic normocephalic. Neck is supple. Chest rise symmetrical, breath sounds diminished bases. Heart: S1-S2. Abdomen distended soft bowel sounds present. Extremities without cyanosis, tenterness, warmth and mild erythema L groin area. Assessment: 1. S/p sepsis, present on admission 2. Beta-hemolytic strep bacteremia ==>2D echo revealed no vegetations, repeat bld cx neg 3. LLE cellulitis 4. Lymphadenopathy status post left groin lymph node biopsy==> neg malignancy 5. Acute kidney failure 6. Diabetes 7. Ischemic cardiomyopathy 7. Obesity Plan: Patient is stable, left lower extremity with persistent erythema and edema and pain. Will order arterial study, change antibiotics to Daptomycin given worsening renal f-n, consider discharge to acute rehab when medically stable Consultation Date/Type/Reason Admit Date/Time Sep 09, 2018 at 21:23 Initial Consult Date 09/10/18 Type of Consult id Requesting Provider: DERIK LOVE MD Date/Time of Note DATE: 09/16/18 TIME: 12:12 Exam/Review of Systems Exam Vitals Vital Signs Date Temp Pulse Resp B/P (MAP) Pulse Ox O2 O2 Flow FiO2 Time Delivery Rate 09/16/18 Nasal 2.0 09:00 Cannula 09/16/18 97.9 83 18 136/73 97 08:00 (94) 09/13/18 21 18:52 Intake and Output 09/15/18 09/15/18 09/16/18 1515:00 23:00 07:00 IntakeIntake Total 1000 ml 200 ml OutputOutput Total 800 ml BalanceBalance 200 ml 200 ml Results Result Diagram: 09/15/18 0545 09/16/18 0524 Results 24hrs Laboratory Tests Test 09/15/18 17:09 09/15/18 17:25 09/15/18 20:36 09/16/18 02:15 Bedside Glucose 66 L 82 135 Vancomycin Level Trough 14.5 Test 09/16/18 05:24 09/16/18 08:45 Sodium Level 141 Potassium Level 4.5 Chloride Level 104 Carbon Dioxide Level 27 Anion Gap 10 Blood Urea Nitrogen 25 H Creatinine 1.93 H Est Glomerular Filtrat 36 L Rate mL/min Glucose Level 159 Calcium Level 8.8 Bedside Glucose 161 Medications Medication Current Medications IV Flush (NS 3 ml) 3 ml PER PROTOCOL IV ; Start 09/10/18 at 05:00 Ondansetron HCl (Zofran Inj) 4 mg Q6H PRN IV NAUSEA/VOMITING Last administered on 09/10/18at 09:43; Admin Dose 4 MG; Start 09/10/18 at 05:00 Nitroglycerin (Nitroglycerin (Sl Tab) 0.4 Mg) 1 tab Q5M PRN SL .CHEST PAIN; Start 09/10/18 at 05:00 Acetaminophen (Tylenol Tab) 650 mg Q6H PRN PO .PAIN 1-3 OR TEMP Last administered on 09/10/18at 12:23; Admin Dose 650 MG; Start 09/10/18 at 05:00 Heparin Sodium (Porcine) (Heparin (5000 Units/1ml)) 5,000 unit Q12 SC Last administered on 09/16/18at 08:58; Admin Dose 5,000 UNIT; Start 09/10/18 at 09:00 Albuterol/ Ipratropium (Duoneb) 3 ml Q2H RESP THERAPY PRN HHN SHORTNESS OF BREATH Last administered on 09/10/18at 08:40; Admin Dose 3 ML; Start 09/10/18 at 05:00 Alprazolam (Xanax) 0.5 mg TID PRN PO ANXIETY; Start 09/10/18 at 05:00 Aspirin (Aspirin) 81 mg DAILY PO Last administered on 09/16/18at 08:55; Admin Dose 81 MG; Start 09/10/18 at 09:00 Atorvastatin Calcium (Lipitor) 80 mg HS PO Last administered on 09/15/18 20:21; Admin Dose 80 MG; Start 09/10/18 at 21:00 Carvedilol (Coreg) 6.25 mg BID PO Last administered on 09/16/18 08:56; Admin Dose 6.25 MG; Start 09/10/18 at 09:00 Furosemide (Lasix) 40 mg DAILY PO Last administered on 09/16/18 08:57; Admin Dose 40 MG; Start 09/10/18 at 09:00 Gabapentin (Neurontin) 300 mg TID PO Last administered on 09/16/18 08:55; Admin Dose 300 MG; Start 09/10/18 at 09:00 Hydralazine HCl (Apresoline) 10 mg Q12 PO Last administered on 09/15/18 20:21; Admin Dose 10 MG; Start 09/10/18 at 09:00 Isosorbide Dinitrate (Isordil) 20 mg TID PO Last administered on 09/15/18 12:39; Admin Dose 20 MG; Start 09/10/18 at 09:00 Montelukast Sodium (Singulair) 10 mg HS PO Last administered on 09/15/18 20:21; Admin Dose 10 MG; Start 09/10/18 at 21:00 Ranolazine (Ranexa) 1,000 mg Q12 PO Last administered on 09/15/18 20:17; Admin Dose 1,000 MG; Start 09/10/18 at 09:00 Tramadol HCl (Ultram) 100 mg Q6 PRN PO PAIN Last administered on 09/13/18 23:53; Admin Dose 100 MG; Start 09/10/18 at 05:00 Valproic Acid (Depakene) 250 mg BID PO Last administered on 09/15/18 21:45; Admin Dose 250 MG; Start 09/10/18 at 09:00 Fish Oil (Fish Oil) 2,000 mg BID PO Last administered on 09/16/18 08:55; Admin Dose 2,000 MG; Start 09/10/18 at 09:00 Insulin Aspart (Novolog Insulin Pen) NOVOLOG *MODERATE* ALGORITHM WITH MEALS BEDTIME SC Last administered on 09/16/18 08:59; Admin Dose 2 UNIT; Start 09/10/18 at 07:55 Miscellaneous Information 1 ea NOTE XX ; Start 09/10/18 at 06:00 Glucose (Glutose) 15 gm Q15M PRN PO DECREASED GLUCOSE; Start 09/10/18 at 06:00 Glucose (Glutose) 22.5 gm Q15M PRN PO DECREASED GLUCOSE; Start 09/10/18 at 06:00 Dextrose (D50w Syringe) 25 ml Q15M PRN IV DECREASED GLUCOSE; Start 09/10/18 at 06:00 Dextrose (D50w Syringe) 50 ml Q15M PRN IV DECREASED GLUCOSE; Start 09/10/18 at 06:00 Glucagon (Glucagen) 1 mg Q15M PRN IM DECREASED GLUCOSE; Start 09/10/18 at 06:00 Glucose (Glutose) 15 gm Q15M PRN BUCCAL DECREASED GLUCOSE; Start 09/10/18 at 06:00 Ceftriaxone Sodium 50 ml @ 100 mls/hr Q24H IVPB Last administered on 09/15/18 17:19; Admin Dose 100 MLS/HR; Start 09/10/18 at 15:30 Vancomycin HCl (Vanco Iv Per Pharmacy) VANCOMYCIN PER PHARMACY PER PROTOCOL XX ; Start 09/12/18 at 02:30 Vancomycin HCl 1.5 gm/Sodium Chloride 250 ml @ 83.333 mls/ hr Q24H IVPB Last administered on 09/16/18at 06:16; Admin Dose 83.333 MLS/HR; Start 09/12/18 at 03:00 Insulin Glargine (Lantus) 44 units DAILY@0800 SC Last administered on 09/16/18at 10:20; Admin Dose 44 UNITS; Start 09/14/18 at 08:00 Morphine Sulfate (morphine) 4 mg Q3H PRN IV SEVERE PAIN LEVEL 7-10 Last administered on 09/16/18at 10:00; Admin Dose 4 MG; Start 09/13/18 at 18:00 Insulin Aspart (Novolog Insulin Pen) 12 unit WITH MEALS SC Last administered on 09/16/18at 09:01; Admin Dose 12 UNIT; Start 09/14/18 at 17:55 BONNIE MONTILLA NP Sep 16, 2018 12:14
[2018-09-16] MEDS: traMADol 50 MG TAB PO PRN ×2 (13:19→19:46)
[2018-09-16 14:00] VITALS: BP 150/69; PULSE 80; RESP 18
[2018-09-16] MEDS: CEFTRIAXONE 1 GM/50 ML (PMX) 50 ML IVPB SCH (15:40)
--- NOTE | 2018-09-16 16:36 | PN ---
Date/Time of Note Date/Time of Note DATE: 09/16/18 TIME: 16:33 Assessment/Plan VTE Prophylaxis Risk score (from Nsg)>0 risk: 2 SCD applied (from Nsg): Yes Pharmacological prophylaxis: heparin Lines/Catheters IV Catheter Type (from Nrsg): Saline Lock Urinary Cath still in place: No Assessment/Plan Hospital Course 1. LLE swelling and pain: - I doubt this is cellulitis. I suspect there is lymphedema here with some stasis dermatitis 2. Acute respiratory distress secondary to bronchitis/pneumonia -resolved, breathing comfortably 3. Type 1 diabetes with hyperglycemia-uncontrolled A1c at 11.8 Decreased mealtime insulin due to episode of hypoglycemia, continue basal insulin 4. Left inguinal lymphadenopathy and tenderness secondary to left lower extremity cellulitis CT abdomen shows retroperitoneal , left iliac chain and left inguinal lymphadenopathy with largest lymph node measures 1.8 cm in the left inguinal region CT-guided needle biopsy has been done and pathology is negative for malignancy, nodes are reactive likely secondary to infection Oncology consultation with Dr. Rosales appreciated Continue antibiotics and pain control Patient is having difficulty ambulating secondary to lower extremity weakness and pain, continue PT 5. CKD Monitor 6. Ischemic cardiomyopathy (EF 45% in 2016) Continue home meds 7. History of coronary disease with multiple stents in the past Continue cardiac meds 8. Hypertension Continue home meds Prophylaxis: Heparin DC planning: Patient is still having pain in the left lower extremity but is improving, patient also reports significant weakness in the lower extremities reports difficulty ambulating, continue PT and antibiotics, patient prefers to be discharged home rather than jail, anticipate DC home in 1-2 days if patient can ambulate Result Diagram: 09/15/18 0545 09/16/18 0524 Results 24hrs Laboratory Tests Test 09/15/18 17:09 09/15/18 17:25 09/15/18 20:36 09/16/18 02:15 Bedside Glucose 66 L 82 135 Vancomycin Level Trough 14.5 Test 09/16/18 05:24 09/16/18 08:45 09/16/18 12:38 Sodium Level 141 Potassium Level 4.5 Chloride Level 104 Carbon Dioxide Level 27 Anion Gap 10 Blood Urea Nitrogen 25 H Creatinine 1.93 H Est Glomerular Filtrat 36 L Rate mL/min Glucose Level 159 Calcium Level 8.8 Bedside Glucose 161 171 Subjective 24 Hr Interval Summary Free Text/Dictation Still complains of pain in LLE prohibiting him from ambulating Discussed he would like to go to [facility] Exam/Review of Systems Exam Vitals Vital Signs Date Temp Pulse Resp B/P (MAP) Pulse Ox O2 O2 Flow FiO2 Time Delivery Rate 09/16/18 Nasal 2.0 09:00 Cannula 09/16/18 97.9 83 18 136/73 97 08:00 (94) 09/13/18 21 18:52 Intake and Output 09/15/18 09/15/18 09/16/18 1515:00 23:00 07:00 IntakeIntake Total 1000 ml 200 ml OutputOutput Total 800 ml BalanceBalance 200 ml 200 ml Exam Appears well no distress RRR CTAB Soft nt nd LLE more swollen than RLE, some dermatitis lesions Results Results 24hrs Laboratory Tests Test 09/15/18 17:09 09/15/18 17:25 09/15/18 20:36 09/16/18 02:15 Bedside Glucose 66 L 82 135 Vancomycin Level Trough 14.5 Test 09/16/18 05:24 09/16/18 08:45 09/16/18 12:38 Sodium Level 141 Potassium Level 4.5 Chloride Level 104 Carbon Dioxide Level 27 Anion Gap 10 Blood Urea Nitrogen 25 H Creatinine 1.93 H Est Glomerular Filtrat 36 L Rate mL/min Glucose Level 159 Calcium Level 8.8 Bedside Glucose 161 171 Medications Medication Current Medications IV Flush (NS 3 ml) 3 ml PER PROTOCOL IV ; Start 09/10/18 at 05:00 Ondansetron HCl (Zofran Inj) 4 mg Q6H PRN IV NAUSEA/VOMITING Last administered on 09/10/18at 09:43; Admin Dose 4 MG; Start 09/10/18 at 05:00 Nitroglycerin (Nitroglycerin (Sl Tab) 0.4 Mg) 1 tab Q5M PRN SL .CHEST PAIN; Start 09/10/18 at 05:00 Acetaminophen (Tylenol Tab) 650 mg Q6H PRN PO .PAIN 1-3 OR TEMP Last administered on 09/10/18at 12:23; Admin Dose 650 MG; Start 09/10/18 at 05:00 Heparin Sodium (Porcine) (Heparin (5000 Units/1ml)) 5,000 unit Q12 SC Last administered on 09/16/18at 08:58; Admin Dose 5,000 UNIT; Start 09/10/18 at 09:00 Albuterol/ Ipratropium (Duoneb) 3 ml Q2H RESP THERAPY PRN HHN SHORTNESS OF BREATH Last administered on 09/10/18 08:40; Admin Dose 3 ML; Start 09/10/18 at 05:00 Alprazolam (Xanax) 0.5 mg TID PRN PO ANXIETY; Start 09/10/18 at 05:00 Aspirin (Aspirin) 81 mg DAILY PO Last administered on 09/16/18 08:55; Admin Dose 81 MG; Start 09/10/18 at 09:00 Atorvastatin Calcium (Lipitor) 80 mg HS PO Last administered on 09/15/18 20:21; Admin Dose 80 MG; Start 09/10/18 at 21:00 Carvedilol (Coreg) 6.25 mg BID PO Last administered on 09/16/18 08:56; Admin Dose 6.25 MG; Start 09/10/18 at 09:00 Furosemide (Lasix) 40 mg DAILY PO Last administered on 09/16/18 08:57; Admin Dose 40 MG; Start 09/10/18 at 09:00 Gabapentin (Neurontin) 300 mg TID PO Last administered on 09/16/18 13:00; Admin Dose 300 MG; Start 09/10/18 at 09:00 Hydralazine HCl (Apresoline) 10 mg Q12 PO Last administered on 09/15/18 20:21; Admin Dose 10 MG; Start 09/10/18 at 09:00 Isosorbide Dinitrate (Isordil) 20 mg TID PO Last administered on 09/16/18 13:02; Admin Dose 20 MG; Start 09/10/18 at 09:00 Montelukast Sodium (Singulair) 10 mg HS PO Last administered on 09/15/18 20:21; Admin Dose 10 MG; Start 09/10/18 at 21:00 Ranolazine (Ranexa) 1,000 mg Q12 PO Last administered on 09/16/18 13:01; Admin Dose 1,000 MG; Start 09/10/18 at 09:00 Tramadol HCl (Ultram) 100 mg Q6 PRN PO PAIN Last administered on 09/16/18 13:19; Admin Dose 100 MG; Start 09/10/18 at 05:00 Valproic Acid (Depakene) 250 mg BID PO Last administered on 09/15/18at 21:45; Admin Dose 250 MG; Start 09/10/18 at 09:00 Fish Oil (Fish Oil) 2,000 mg BID PO Last administered on 09/16/18at 08:55; Admin Dose 2,000 MG; Start 09/10/18 at 09:00 Insulin Aspart (Novolog Insulin Pen) NOVOLOG *MODERATE* ALGORITHM WITH MEALS BEDTIME SC Last administered on 09/16/18at 12:58; Admin Dose 2 UNIT; Start 09/10/18 at 07:55 Miscellaneous Information 1 ea NOTE XX ; Start 09/10/18 at 06:00 Glucose (Glutose) 15 gm Q15M PRN PO DECREASED GLUCOSE; Start 09/10/18 at 06:00 Glucose (Glutose) 22.5 gm Q15M PRN PO DECREASED GLUCOSE; Start 09/10/18 at 06:00 Dextrose (D50w Syringe) 25 ml Q15M PRN IV DECREASED GLUCOSE; Start 09/10/18 at 06:00 Dextrose (D50w Syringe) 50 ml Q15M PRN IV DECREASED GLUCOSE; Start 09/10/18 at 06:00 Glucagon (Glucagen) 1 mg Q15M PRN IM DECREASED GLUCOSE; Start 09/10/18 at 06:00 Glucose (Glutose) 15 gm Q15M PRN BUCCAL DECREASED GLUCOSE; Start 09/10/18 at 06:00 Ceftriaxone Sodium 50 ml @ 100 mls/hr Q24H IVPB Last administered on 09/16/18at 15:40; Admin Dose 100 MLS/HR; Start 09/10/18 at 15:30 Vancomycin HCl (Vanco Iv Per Pharmacy) VANCOMYCIN PER PHARMACY PER PROTOCOL XX ; Start 09/12/18 at 02:30 Vancomycin HCl 1.5 gm/Sodium Chloride 250 ml @ 83.333 mls/ hr Q24H IVPB Last administered on 09/16/18at 06:16; Admin Dose 83.333 MLS/HR; Start 09/12/18 at 03:00 Insulin Glargine (Lantus) 44 units DAILY@0800 SC Last administered on 09/16/18at 10:20; Admin Dose 44 UNITS; Start 09/14/18 at 08:00 Insulin Aspart (Novolog Insulin Pen) 12 unit WITH MEALS SC Last administered on 09/16/18at 12:58; Admin Dose 12 UNIT; Start 09/14/18 at 17:55 DAVID KLEIN MD Sep 16, 2018 16:36
--- NOTE | 2018-09-16 18:10 | PN ---
DATE: 09/16/2018 SUBJECTIVE: The patient continues to experience some pain in the left lower extremity. The patient still states he is experiencing some shaking chills. He has no shortness of breath or chest pain. No cough. OBJECTIVE: GENERAL: The patient is a well-developed, obese male who is in no acute distress. VITAL SIGNS: Temperature 98 orally, pulse 80 per minute and regular, respirations 18, blood pressure 150/69, pulse oximetry 96% on 2 liters via nasal cannula. SKIN: No ecchymosis, no petechiae or rashes. There are stasis changes in the left pretibial area. HEENT: Normocephalic. No evidence of trauma. The pupils are equal, round, react to light and accom modation. Sclerae are nonicteric. Oral mucosa is moist without lesions. NECK: Supple. No jugular venous distention or thyroid enlargement. CHEST: Clear to auscultation and percussion. No rhonchi, wheezes. There are generally decreased br eath sounds and some occasional rales in bases which clear with cough or deep respirations. HEART: Regular sinus rhythm. No S3, S4 or murmurs. ABDOMEN: Obese without masses or ascites. EXTREMITIES: No clubbing or cyanosis. There is still tenderness in the right inguinal area with les s erythema and warmth to the touch. Again, there are the stasis changes in the more distal left lowe r extremity. NEUROLOGIC: Normal. LABORATORY: No CBC today. Sodium 141, potassium 4.5, BUN 25, creatinine 1.93. ASSESSMENT: 1. Cellulitis of left lower extremity, particularly in the more proximal area. 2. Left inguinal lymphadenopathy secondary to #1. 3. Diabetes mellitus type 1. 4. Gram-positive sepsis with beta hemolytic strep and coagulase negative Staphylococcus. 5. Chronic obstructive pulmonary disease. 6. Ischemic cardiomyopathy. 7. Hypertension. DISCUSSION: I do feel there is some component of cellulitis. This is documented by the fact that th ere is acute lymphadenitis and perinodal cellulitis in the soft tissue biopsy. Again, no evidence of malignancy. We will repeat CBC in a.m. and continue on present antibiotics. Dictated By: GEORGE VO MD SR/GABY Conf#: [id number] DID#: [id number] CC: DERIK LOVE MD; DAVID KLEIN MD; DENNIS LEWIS MD;*[facility]*
--- NOTE | 2018-09-16 18:28 | CONS ---
Assessment/Plan Assessment/Plan Assessment/Plan (Daily) 1. acute kidney injury due to ATN From pneumonia 2. sepsis due to pneumonia 3. pneumonia, worried about community acquired PNA 4. h/o HTn 5. h/o Myocardial infarction 6. h/o Lithotripsy before for left kidney stone Plan: BUN/Cr improved to 25/1.93, Bp stable IV abx Daptomycin and Vancomycin for PNA and Sepsis, renally dose all abx and monitor electrolyte S/P left groin LN biopsy negative for malignancy , acute lymphadenitis will follow up Consultation Date/Type/Reason Admit Date/Time Sep 09, 2018 at 21:23 Initial Consult Date 09/10/18 Type of Consult NEPHROLOGY Requesting Provider: DERIK LOVE MD Date/Time of Note DATE: 09/16/18 TIME: 18:28 Exam/Review of Systems Exam Vitals Vital Signs Date Temp Pulse Resp B/P (MAP) Pulse Ox O2 O2 Flow FiO2 Time Delivery Rate 09/16/18 98.0 80 18 150/69 96 14:00 (96) 09/16/18 Nasal 2.0 09:00 Cannula 09/13/18 21 18:52 Intake and Output 09/15/18 09/15/18 09/16/18 1515:00 23:00 07:00 IntakeIntake Total 1000 ml 200 ml OutputOutput Total 800 ml BalanceBalance 200 ml 200 ml Exam Constitutional: alert, awake, Respiratory: diminished breath sounds, other (RLL Crackles ) Cardiovascular: regular rate and rhythm Gastrointestinal: soft, non-tender Musculoskeletal: nl extremities to inspection Extremities: normal pulses 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: [employer] II-XII intact, nl mental status, nl speech, nl strength Results Result Diagram: 09/15/18 0545 09/16/18 0524 Results 24hrs Laboratory Tests Test 09/15/18 20:36 09/16/18 02:15 09/16/18 05:24 09/16/18 08:45 Bedside Glucose 135 161 Vancomycin Level Trough 14.5 Sodium Level 141 Potassium Level 4.5 Chloride Level 104 Carbon Dioxide Level 27 Anion Gap 10 Blood Urea Nitrogen 25 H Creatinine 1.93 H Est Glomerular Filtrat 36 L Rate mL/min Glucose Level 159 Calcium Level 8.8 Test 09/16/18 12:38 09/16/18 17:17 Bedside Glucose 171 75 Medications Medication Current Medications IV Flush (NS 3 ml) 3 ml PER PROTOCOL IV ; Start 09/10/18 at 05:00 Ondansetron HCl (Zofran Inj) 4 mg Q6H PRN IV NAUSEA/VOMITING Last administered on 09/10/18 09:43; Admin Dose 4 MG; Start 09/10/18 at 05:00 Nitroglycerin (Nitroglycerin (Sl Tab) 0.4 Mg) 1 tab Q5M PRN SL .CHEST PAIN; Start 09/10/18 at 05:00 Acetaminophen (Tylenol Tab) 650 mg Q6H PRN PO .PAIN 1-3 OR TEMP Last administered on 09/10/18 12:23; Admin Dose 650 MG; Start 09/10/18 at 05:00 Heparin Sodium (Porcine) (Heparin (5000 Units/1ml)) 5,000 unit Q12 SC Last administered on 09/16/18 08:58; Admin Dose 5,000 UNIT; Start 09/10/18 at 09:00 Albuterol/ Ipratropium (Duoneb) 3 ml Q2H RESP THERAPY PRN HHN SHORTNESS OF BREATH Last administered on 09/10/18 08:40; Admin Dose 3 ML; Start 09/10/18 at 05:00 Alprazolam (Xanax) 0.5 mg TID PRN PO ANXIETY; Start 09/10/18 at 05:00 Aspirin (Aspirin) 81 mg DAILY PO Last administered on 09/16/18 08:55; Admin Dose 81 MG; Start 09/10/18 at 09:00 Atorvastatin Calcium (Lipitor) 80 mg HS PO Last administered on 09/15/18 20:21; Admin Dose 80 MG; Start 09/10/18 at 21:00 Carvedilol (Coreg) 6.25 mg BID PO Last administered on 09/16/18 08:56; Admin Dose 6.25 MG; Start 09/10/18 at 09:00 Furosemide (Lasix) 40 mg DAILY PO Last administered on 09/16/18 08:57; Admin Dose 40 MG; Start 09/10/18 at 09:00 Gabapentin (Neurontin) 300 mg TID PO Last administered on 09/16/18 13:00; Admin Dose 300 MG; Start 09/10/18 at 09:00 Hydralazine HCl (Apresoline) 10 mg Q12 PO Last administered on 09/15/18 20:21; Admin Dose 10 MG; Start 09/10/18 at 09:00 Isosorbide Dinitrate (Isordil) 20 mg TID PO Last administered on 09/16/18 13:02 ; Admin Dose 20 MG; Start 09/10/18 at 09:00 Montelukast Sodium (Singulair) 10 mg HS PO Last administered on 09/15/18 20:21; Admin Dose 10 MG; Start 09/10/18 at 21:00 Ranolazine (Ranexa) 1,000 mg Q12 PO Last administered on 09/16/18 13:01; Admin Dose 1,000 MG; Start 09/10/18 at 09:00 Tramadol HCl (Ultram) 100 mg Q6 PRN PO PAIN Last administered on 09/16/18 13:19; Admin Dose 100 MG; Start 09/10/18 at 05:00 Valproic Acid (Depakene) 250 mg BID PO Last administered on 09/15/18 21:45; Admin Dose 250 MG; Start 09/10/18 at 09:00 Fish Oil (Fish Oil) 2,000 mg BID PO Last administered on 09/16/18 08:55; Admin Dose 2,000 MG; Start 09/10/18 at 09:00 Insulin Aspart (Novolog Insulin Pen) NOVOLOG *MODERATE* ALGORITHM WITH MEALS BEDTIME SC Last administered on 09/16/18 12:58; Admin Dose 2 UNIT; Start 09/10/18 at 07:55 Miscellaneous Information 1 ea NOTE XX ; Start 09/10/18 at 06:00 Glucose (Glutose) 15 gm Q15M PRN PO DECREASED GLUCOSE; Start 09/10/18 at 06:00 Glucose (Glutose) 22.5 gm Q15M PRN PO DECREASED GLUCOSE; Start 09/10/18 at 06:00 Dextrose (D50w Syringe) 25 ml Q15M PRN IV DECREASED GLUCOSE; Start 09/10/18 at 06:00 Dextrose (D50w Syringe) 50 ml Q15M PRN IV DECREASED GLUCOSE; Start 09/10/18 at 06:00 Glucagon (Glucagen) 1 mg Q15M PRN IM DECREASED GLUCOSE; Start 09/10/18 at 06:00 Glucose (Glutose) 15 gm Q15M PRN BUCCAL DECREASED GLUCOSE; Start 09/10/18 at 06:00 Ceftriaxone Sodium 50 ml @ 100 mls/hr Q24H IVPB Last administered on 09/16/18at 15:40; Admin Dose 100 MLS/HR; Start 09/10/18 at 15:30 Insulin Glargine (Lantus) 44 units DAILY@0800 SC Last administered on 09/16/18at 10:20; Admin Dose 44 UNITS; Start 09/14/18 at 08:00 Insulin Aspart (Novolog Insulin Pen) 12 unit WITH MEALS SC Last administered on 09/16/18at 17:19; Admin Dose 12 UNIT; Start 09/14/18 at 17:55 ANDREW BOWLING MD Sep 16, 2018 18:28
[2018-09-16 19:48] VITALS: BP 137/66; PULSE 79; RESP 20
[2018-09-16] MEDS: MONTELUKAST 10 MG TAB PO SCH (21:15)
[2018-09-16] MEDS: ATORVASTATIN 80 MG TAB PO SCH (21:16)
[2018-09-16] MEDS: morphine 2 MG INJ IV PRN (22:20)
[2018-09-16] MEDS: DAPTOMYCIN 470 MG in SOD CHLORIDE 0.9% 100 ML IVPB SCH (23:23)
[2018-09-17 01:40] VITALS: BP 112/52; PULSE 81; RESP 20
[2018-09-17] MEDS: morphine 2 MG INJ IV PRN ×4 (05:17→21:46)
[2018-09-17 07:23] VITALS: BP 143/73; PULSE 86; RESP 18
--- NOTE | 2018-09-17 08:35 | CONS ---
Assessment/Plan Assessment/Plan Assessment/Plan (Daily) 1. acute kidney injury due to ATN From pneumonia 2. sepsis due to pneumonia 3. pneumonia, worried about community acquired PNA 4. h/o HTn 5. h/o Myocardial infarction 6. h/o Lithotripsy before for left kidney stone Plan: BUN/Cr improved to 25/1.93, Bp stable - no lab stoday to review yet IV abx Daptomycin and Vancomycin for PNA and Sepsis, renally dose all abx and monitor electrolyte S/P left groin LN biopsy negative for malignancy , acute lymphadenitis will follow up Consultation Date/Type/Reason Admit Date/Time Sep 09, 2018 at 21:23 Initial Consult Date 09/10/18 Type of Consult NEPHROLOGY Requesting Provider: DERIK LOVE MD Date/Time of Note DATE: 09/17/18 TIME: 08:35 Exam/Review of Systems Exam Vitals Vital Signs Date Temp Pulse Resp B/P (MAP) Pulse Ox O2 O2 Flow FiO2 Time Delivery Rate 09/17/18 98.0 86 18 143/73 91 Room Air 07:23 (96) 09/17/18 2.0 05:17 09/13/18 21 18:52 Intake and Output 09/16/18 09/16/18 09/17/18 1515:00 23:00 07:00 IntakeIntake Total 1040 ml 730 ml 100 ml BalanceBalance 1040 ml 730 ml 100 ml Exam Constitutional: alert, awake, Respiratory: diminished breath sounds, other (RLL Crackles ) Cardiovascular: regular rate and rhythm Gastrointestinal: soft, non-tender Musculoskeletal: nl extremities to inspection Extremities: normal pulses 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: SKEIN BLEACHER II-XII intact, nl mental status, nl speech, nl strength Results Result Diagram: 09/15/18 0545 09/16/18 0524 Results 24hrs Laboratory Tests Test 09/16/18 08:45 09/16/18 12:38 09/16/18 17:17 09/16/18 21:11 Bedside Glucose 161 171 75 104 Test 09/17/18 01:19 Bedside Glucose 135 Medications Medication Current Medications IV Flush (NS 3 ml) 3 ml PER PROTOCOL IV ; Start 09/10/18 at 05:00 Ondansetron HCl (Zofran Inj) 4 mg Q6H PRN IV NAUSEA/VOMITING Last administered on 2/27/19at 09:43; Admin Dose 4 MG; Start 09/10/18 at 05:00 Nitroglycerin (Nitroglycerin (Sl Tab) 0.4 Mg) 1 tab Q5M PRN SL .CHEST PAIN; Start 09/10/18 at 05:00 Acetaminophen (Tylenol Tab) 650 mg Q6H PRN PO .PAIN 1-3 OR TEMP Last administered on 09/10/18 12:23; Admin Dose 650 MG; Start 09/10/18 at 05:00 Heparin Sodium (Porcine) (Heparin (5000 Units/1ml)) 5,000 unit Q12 SC Last administered on 09/16/18 21:23; Admin Dose 5,000 UNIT; Start 09/10/18 at 09:00 Albuterol/ Ipratropium (Duoneb) 3 ml Q2H RESP THERAPY PRN HHN SHORTNESS OF BREATH Last administered on 09/10/18 08:40; Admin Dose 3 ML; Start 09/10/18 at 05:00 Alprazolam (Xanax) 0.5 mg TID PRN PO ANXIETY; Start 09/10/18 at 05:00 Aspirin (Aspirin) 81 mg DAILY PO Last administered on 09/16/18 08:55; Admin Dose 81 MG; Start 09/10/18 at 09:00 Atorvastatin Calcium (Lipitor) 80 mg HS PO Last administered on 09/16/18 21:16; Admin Dose 80 MG; Start 09/10/18 at 21:00 Carvedilol (Coreg) 6.25 mg BID PO Last administered on 09/16/18 21:16; Admin Dose 6.25 MG; Start 09/10/18 at 09:00 Furosemide (Lasix) 40 mg DAILY PO Last administered on 09/16/18 08:57; Admin Dose 40 MG; Start 09/10/18 at 09:00 Gabapentin (Neurontin) 300 mg TID PO Last administered on 09/16/18 21:15; Admin Dose 300 MG; Start 09/10/18 at 09:00 Hydralazine HCl (Apresoline) 10 mg Q12 PO Last administered on 09/16/18 21:15; Admin Dose 10 MG; Start 09/10/18 at 09:00 Isosorbide Dinitrate (Isordil) 20 mg TID PO Last administered on 09/16/18 21:15; Admin Dose 20 MG; Start 09/10/18 at 09:00 Montelukast Sodium (Singulair) 10 mg HS PO Last administered on 09/16/18 21:15; Admin Dose 10 MG; Start 09/10/18 at 21:00 Ranolazine (Ranexa) 1,000 mg Q12 PO Last administered on 09/16/18 13:01; Admin Dose 1,000 MG; Start 09/10/18 at 09:00 Tramadol HCl (Ultram) 100 mg Q6 PRN PO PAIN Last administered on 09/16/18 19:46; Admin Dose 100 MG; Start 09/10/18 at 05:00 Valproic Acid (Depakene) 250 mg BID PO Last administered on 09/16/18 21:15; Admin Dose 250 MG; Start 09/10/18 at 09:00 Fish Oil (Fish Oil) 2,000 mg BID PO Last administered on 09/16/18 21:14; Admin Dose 2,000 MG; Start 09/10/18 at 09:00 Insulin Aspart (Novolog Insulin Pen) NOVOLOG *MODERATE* ALGORITHM WITH MEALS BEDTIME SC Last administered on 09/16/18 12:58; Admin Dose 2 UNIT; Start 09/10/18 at 07:55 Miscellaneous Information 1 ea NOTE XX ; Start 09/10/18 at 06:00 Glucose (Glutose) 15 gm Q15M PRN PO DECREASED GLUCOSE; Start 09/10/18 at 06:00 Glucose (Glutose) 22.5 gm Q15M PRN PO DECREASED GLUCOSE; Start 09/10/18 at 06:00 Dextrose (D50w Syringe) 25 ml Q15M PRN IV DECREASED GLUCOSE; Start 09/10/18 at 06:00 Dextrose (D50w Syringe) 50 ml Q15M PRN IV DECREASED GLUCOSE; Start 09/10/18 at 06:00 Glucagon (Glucagen) 1 mg Q15M PRN IM DECREASED GLUCOSE; Start 09/10/18 at 06:00 Glucose (Glutose) 15 gm Q15M PRN BUCCAL DECREASED GLUCOSE; Start 09/10/18 at 06:00 Insulin Glargine (Lantus) 44 units DAILY@0800 SC Last administered on 09/16/18 10:20; Admin Dose 44 UNITS; Start 09/14/18 at 08:00 Insulin Aspart (Novolog Insulin Pen) 12 unit WITH MEALS SC Last administered on 09/16/18at 17:19; Admin Dose 12 UNIT; Start 09/14/18 at 17:55 Daptomycin 470 mg/ Sodium Chloride 100 ml @ 200 mls/hr Q24H IVPB Last administered on 09/16/18at 23:23; Admin Dose 200 MLS/HR; Start 09/16/18 at 22:00 Morphine Sulfate (morphine) 1 mg Q4H PRN IV SEVERE PAIN LEVEL 7-10 Last administered on 09/17/18at 05:17; Admin Dose 1 MG; Start 09/16/18 at 21:30 ANDREW BOWLING MD Sep 17, 2018 08:35
[2018-09-17] MEDS: RANOLAZINE (SR) 500 MG TAB PO SCH ×2 (08:45→21:35)
[2018-09-17] MEDS: VALPROIC ACID 250 MG CAP PO SCH ×2 (08:46→21:45)
[2018-09-17] MEDS: ISOSORBIDE DINITRATE 20 MG TAB PO SCH ×3 (08:46→21:32)
[2018-09-17] MEDS: FISH OIL 1,000 MG CAP PO SCH ×2 (08:47→21:31)
[2018-09-17] MEDS: ASPIRIN 81 MG TAB PO SCH (08:48)
[2018-09-17] MEDS: GABAPENTIN 300 MG CAP PO SCH ×3 (08:48→21:31)
[2018-09-17] MEDS: FUROSEMIDE 40 MG TAB PO SCH (08:48)
[2018-09-17] MEDS: INSULIN GLARGINE [LANTus] (100 UNITS/ML) SYG SC SCH (08:54)
[2018-09-17] MEDS: HEPARIN 5,000 UNIT/1 ML VIAL SC SCH ×2 (08:56→21:33)
[2018-09-17] MEDS: INSULIN ASPART [NOVOLOG] 3 ML PEN SC SCH ×7 (08:56→21:00)
--- NOTE | 2018-09-17 11:21 | CONS ---
Assessment/Plan Assessment/Plan Hospital Course (Demo Recall) All noted, no acute events Microbiology: Blood culture on admission grew beta-hemolytic strep species CT of the abdomen and pelvis on admission revealed retroperitoneal left iliac chain and left inguinal lymphadenopathy with largest lymph node measures 1.5 cm in the left inguinal region. Moderate diffuse peribronchial thickening suggestive of bronchitis with likely superimposed mass mild interstitial edema. Splenomegaly, unchanged since 2017 CT. Antimicrobials: Daptomycin Physical examination: Well-nourished well-developed middle-aged [place] Islander-speaking man who is alert in no distress. Head atraumatic normocephalic. Neck is supple. Chest rise symmetrical, breath sounds diminished bases. Heart: S1-S2. Abdomen distended soft bowel sounds present. Extremities without cyanosis, LLE swelling/erythema Assessment: 1. S/p sepsis, present on admission 2. Beta-hemolytic strep bacteremia ==>2D echo revealed no vegetations, repeat bld cx neg 3. LLE cellulitis/PAD 4. Lymphadenopathy status post left groin lymph node biopsy==> neg malignancy 5. Acute kidney failure 6. Diabetes 7. Ischemic cardiomyopathy 7. Obesity Plan: Remains unchanged, continue abx to complete 2 weeks for treatment of bacteremia, pending vascular surgery eval Consultation Date/Type/Reason Admit Date/Time Sep 09, 2018 at 21:23 Initial Consult Date 09/10/18 Type of Consult id Requesting Provider: DERIK LOVE MD Date/Time of Note DATE: 09/17/18 TIME: 11:19 Exam/Review of Systems Exam Vitals Vital Signs Date Temp Pulse Resp B/P (MAP) Pulse Ox O2 O2 Flow FiO2 Time Delivery Rate 09/17/18 Nasal 2.0 08:15 Cannula 09/17/18 98.0 86 18 143/73 91 07:23 (96) 09/13/18 21 18:52 Intake and Output 09/16/18 09/16/18 09/17/18 1515:00 23:00 07:00 IntakeIntake Total 1040 ml 730 ml 100 ml BalanceBalance 1040 ml 730 ml 100 ml Results Result Diagram: 09/15/18 0545 09/16/18 0524 Results 24hrs Laboratory Tests Test 09/16/18 12:38 09/16/18 17:17 09/16/18 21:11 09/17/18 01:19 Bedside Glucose 171 75 104 135 Test 09/17/18 08:45 Bedside Glucose 222 H Medications Medication Current Medications IV Flush (NS 3 ml) 3 ml PER PROTOCOL IV ; Start 09/10/18 at 05:00 Ondansetron HCl (Zofran Inj) 4 mg Q6H PRN IV NAUSEA/VOMITING Last administered on 09/10/18 09:43; Admin Dose 4 MG; Start 09/10/18 at 05:00 Nitroglycerin (Nitroglycerin (Sl Tab) 0.4 Mg) 1 tab Q5M PRN SL .CHEST PAIN; Start 09/10/18 at 05:00 Acetaminophen (Tylenol Tab) 650 mg Q6H PRN PO .PAIN 1-3 OR TEMP Last administered on 09/10/18 12:23; Admin Dose 650 MG; Start 09/10/18 at 05:00 Heparin Sodium (Porcine) (Heparin (5000 Units/1ml)) 5,000 unit Q12 SC Last administered on 09/17/18 08:56; Admin Dose 5,000 UNIT; Start 09/10/18 at 09:00 Albuterol/ Ipratropium (Duoneb) 3 ml Q2H RESP THERAPY PRN HHN SHORTNESS OF BREATH Last administered on 09/10/18 08:40; Admin Dose 3 ML; Start 09/10/18 at 05:00 Alprazolam (Xanax) 0.5 mg TID PRN PO ANXIETY; Start 09/10/18 at 05:00 Aspirin (Aspirin) 81 mg DAILY PO Last administered on 09/17/18 08:48; Admin Dose 81 MG; Start 09/10/18 at 09:00 Atorvastatin Calcium (Lipitor) 80 mg HS PO Last administered on 09/16/18 21:16; Admin Dose 80 MG; Start 09/10/18 at 21:00 Carvedilol (Coreg) 6.25 mg BID PO Last administered on 09/17/18 08:46; Admin Dose 6.25 MG; Start 09/10/18 at 09:00 Furosemide (Lasix) 40 mg DAILY PO Last administered on 09/17/18 08:48; Admin Dose 40 MG; Start 09/10/18 at 09:00 Gabapentin (Neurontin) 300 mg TID PO Last administered on 09/17/18 08:48; Admin Dose 300 MG; Start 09/10/18 at 09:00 Hydralazine HCl (Apresoline) 10 mg Q12 PO Last administered on 09/16/18 21:15; Admin Dose 10 MG; Start 09/10/18 at 09:00 Isosorbide Dinitrate (Isordil) 20 mg TID PO Last administered on 09/17/18 08:46; Admin Dose 20 MG; Start 09/10/18 at 09:00 Montelukast Sodium (Singulair) 10 mg HS PO Last administered on 09/16/18 21:15; Admin Dose 10 MG; Start 09/10/18 at 21:00 Ranolazine (Ranexa) 1,000 mg Q12 PO Last administered on 09/17/18 08:45; Admin Dose 1,000 MG; Start 09/10/18 at 09:00 Tramadol HCl (Ultram) 100 mg Q6 PRN PO PAIN Last administered on 09/16/18 19:46; Admin Dose 100 MG; Start 09/10/18 at 05:00 Valproic Acid (Depakene) 250 mg BID PO Last administered on 09/17/18 08:46; Admin Dose 250 MG; Start 09/10/18 at 09:00 Fish Oil (Fish Oil) 2,000 mg BID PO Last administered on 09/17/18 08:47; Admin Dose 2,000 MG; Start 09/10/18 at 09:00 Insulin Aspart (Novolog Insulin Pen) NOVOLOG *MODERATE* ALGORITHM WITH MEALS BEDTIME SC Last administered on 09/17/18 08:56; Admin Dose 6 UNIT; Start 09/10/18 at 07:55 Miscellaneous Information 1 ea NOTE XX ; Start 09/10/18 at 06:00 Glucose (Glutose) 15 gm Q15M PRN PO DECREASED GLUCOSE; Start 09/10/18 at 06:00 Glucose (Glutose) 22.5 gm Q15M PRN PO DECREASED GLUCOSE; Start 09/10/18 at 06:00 Dextrose (D50w Syringe) 25 ml Q15M PRN IV DECREASED GLUCOSE; Start 09/10/18 at 06:00 Dextrose (D50w Syringe) 50 ml Q15M PRN IV DECREASED GLUCOSE; Start 09/10/18 at 06:00 Glucagon (Glucagen) 1 mg Q15M PRN IM DECREASED GLUCOSE; Start 09/10/18 at 06:00 Glucose (Glutose) 15 gm Q15M PRN BUCCAL DECREASED GLUCOSE; Start 09/10/18 at 06:00 Insulin Glargine (Lantus) 44 units DAILY@0800 SC Last administered on 09/17/18at 08:54; Admin Dose 44 UNITS; Start 09/14/18 at 08:00 Insulin Aspart (Novolog Insulin Pen) 12 unit WITH MEALS SC Last administered on 09/17/18at 09:28; Admin Dose 12 UNIT; Start 09/14/18 at 17:55 Daptomycin 470 mg/ Sodium Chloride 100 ml @ 200 mls/hr Q24H IVPB Last administered on 09/16/18at 23:23; Admin Dose 200 MLS/HR; Start 09/16/18 at 22:00 BONNIE MONTILLA NP Sep 17, 2018 11:20
--- NOTE | 2018-09-17 11:52 | CONS ---
Assessment/Plan Assessment/Plan Hospital Course (Demo Recall) 1. Chest pain consistent with angina 2. Sepsis/bacteremia 3. Acute renal failure 4. Diabetes 5. Hypertension 6. History of coronary artery disease or multiple PCI 7. History of smoking 8. Peripheral vascular disease Recommendations: Antibiotic management as per internal medicine and ID recommendations Continue with aspirin Beta-hugo as tolerated We will schedule the patient for Lexiscan stress test tomorrow to assess for significant ischemia. We will also optimize medical therapy. Given his abnormal renal function and acute renal failure we will hold off on coronary angiogram for now Thank you for his referral will continue to follow along with you REESE TAVERA MD [facility] Consultation Date/Type/Reason Admit Date/Time Sep 09, 2018 at 21:23 Date of Consultation: Sep 17, 2018 Type of Consult Cardiology Reason for Consultation chest pain Requesting Provider: DAVID KLEIN MD Date/Time of Note DATE: 09/17/18 TIME: 11:46 Hx of Present Illness Interventional cardiology consultation note Chief complaint: Fever chills Reason for consult: Chest pain History of present illness: Thank you for this referral. History was obtained from the patient review of review of the chart patient also noting her previous admission to the hospital This is a pleasant 57-year-old gentleman with history of coronary artery decided to multiple PCI who was admitted through emergency room because of fever and chills. Patient was noted to have lower extremity cellulitis. Also was bacteremic. Also has gone into acute renal failure. On further questioning patient has complained of chest pain anteriorly which been going on over the past 6 months. Mostly with exertion. Said the last time was when he was walking down the bowel wall progress are having chest pain. Relief with nitroglycerin. Currently patient is chest pain-free Patient also shortness of breath admission which is improved now. PAST MEDICAL HISTORY: History of coronary artery disease, status multiple PCIs. The last one, the patient had a cutting balloon angioplasty of his LAD stent about 5 years ago, status post PCI of the left circumflex artery in 2016 by myself. History of hypertension, congestive heart failure, History of hypertension. FAMILY HISTORY: Multiple family members including both his parents with [place]. SOCIAL HISTORY: The patient has quit smoking about 4-5 years ago. Denies any drug abuse to me. ALLERGIES: NO KNOWN DRUG ALLERGIES. Medications were reviewed as per medical reconciliation sheet Review of system: Patient denies all others except for above-mentioned Past Medical History Home Meds Active Scripts Valproic Acid* (Depakene*) 250 Mg Capsule, 250 MG PO BID for 14 Days, CAP Prov:BRANDON WHITNEY 02/13/17 Tramadol HCl (Tramadol HCl) 50 Mg Tablet, 100 MG PO Q6 PRN for PAIN, #30 TAB Prov:BRANDON WHITNEY 02/13/17 Acyclovir* (Acyclovir*) 800 Mg Tablet, 800 MG PO 5 TIMES DAILY for 7 Days, TAB Prov:BRANDON WHITNEY 02/13/17 Montelukast Sodium* (Montelukast Sodium*) 10 Mg Tablet, 10 MG PO HS, #30 TAB Prov:NARENDRA CHAWLA MD 07/19/16 Counce-3/Dha/Epa/Fish Oil (FISH OIL EC 1,000 MG SOFTGEL) 1 Each Capsule.dr, 2000 MG PO BID, #60 Prov:NARENDRA CHAWLA MD 07/19/16 Isosorbide Dinitrate* (Isosorbide Dinitrate*) 20 Mg Tablet, 20 MG PO TID, #90 TAB Prov:NARENDRA CHAWLA MD 07/19/16 Insulin Glargine* (Lantus*) 100 Unit/Ml Soln, 43 UNIT SC HS for 30 Days Prov:NARENDRA CHAWLA MD 07/19/16 Insulin Aspart* (Novolog Insulin Pen*) 100 Unit/Ml Soln, 15 UNIT SC AC MEALS for 30 Days Prov:NARENDRA CHAWLA MD 07/19/16 Alprazolam* (Alprazolam*) 0.25 Mg Tablet, 0.5 MG PO TID PRN for ANXIETY, #20 TAB Prov:NARENDRA CHAWLA MD 07/19/16 Carvedilol* (Carvedilol*) 12.5 Mg Tablet, 6.25 MG PO BID for 30 Days, #60 TAB Prov:NARENDRA CHAWLA MD 07/19/16 Furosemide (Lasix) 40 Mg Tab, 40 MG PO DAILY for 30 Days, TAB Prov:JESE MCCOY 03/26/16 Gabapentin* (Gabapentin*) 300 Mg Capsule, 300 MG PO TID for 30 Days, CAP Prov:JESE MCCOY 03/26/16 Atorvastatin* (Atorvastatin*) 80 Mg Tablet, 80 MG PO HS for 30 Days, TAB Prov:JESE MCCOY 03/26/16 Aspirin (Aspirin) 81 Mg Chew, 81 MG PO DAILY, #30 TAB 12 Refills Prov:JESE MCCOY 03/26/16 Reported Medications Hydralazine Hcl* (Hydralazine Hcl*) 10 Mg Tablet, 10 MG PO Q12, #120 TAB 02/13/17 Ranolazine* (Ranexa*) 1,000 Mg Tab.sr.12h, 1000 MG PO Q12, TAB 06/08/16 Medications Current Medications IV Flush (NS 3 ml) 3 ml PER PROTOCOL IV ; Start 09/10/18 at 05:00 Ondansetron HCl (Zofran Inj) 4 mg Q6H PRN IV NAUSEA/VOMITING Last administered on 09/10/18 09:43; Admin Dose 4 MG; Start 09/10/18 at 05:00 Nitroglycerin (Nitroglycerin (Sl Tab) 0.4 Mg) 1 tab Q5M PRN SL .CHEST PAIN; Start 09/10/18 at 05:00 Acetaminophen (Tylenol Tab) 650 mg Q6H PRN PO .PAIN 1-3 OR TEMP Last administered on 09/10/18 12:23; Admin Dose 650 MG; Start 09/10/18 at 05:00 Heparin Sodium (Porcine) (Heparin (5000 Units/1ml)) 5,000 unit Q12 SC Last administered on 09/17/18 08:56; Admin Dose 5,000 UNIT; Start 09/10/18 at 09:00 Albuterol/ Ipratropium (Duoneb) 3 ml Q2H RESP THERAPY PRN HHN SHORTNESS OF BREATH Last administered on 09/10/18 08:40; Admin Dose 3 ML; Start 09/10/18 at 05:00 Alprazolam (Xanax) 0.5 mg TID PRN PO ANXIETY; Start 09/10/18 at 05:00 Aspirin (Aspirin) 81 mg DAILY PO Last administered on 09/17/18 08:48; Admin D ose 81 MG; Start 09/10/18 at 09:00 Atorvastatin Calcium (Lipitor) 80 mg HS PO Last administered on 09/16/18 21:16; Admin Dose 80 MG; Start 09/10/18 at 21:00 Carvedilol (Coreg) 6.25 mg BID PO Last administered on 09/17/18 08:46; Admin Dose 6.25 MG; Start 09/10/18 at 09:00 Furosemide (Lasix) 40 mg DAILY PO Last administered on 09/17/18 08:48; Admin Dose 40 MG; Start 09/10/18 at 09:00 Gabapentin (Neurontin) 300 mg TID PO Last administered on 09/17/18 08:48; Admin Dose 300 MG; Start 09/10/18 at 09:00 Hydralazine HCl (Apresoline) 10 mg Q12 PO Last administered on 09/16/18 21:15; Admin Dose 10 MG; Start 09/10/18 at 09:00 Isosorbide Dinitrate (Isordil) 20 mg TID PO Last administered on 09/17/18 08:46; Admin Dose 20 MG; Start 09/10/18 at 09:00 Montelukast Sodium (Singulair) 10 mg HS PO Last administered on 09/16/18 21:15; Admin Dose 10 MG; Start 09/10/18 at 21:00 Ranolazine (Ranexa) 1,000 mg Q12 PO Last administered on 09/17/18 08:45; Admin Dose 1,000 MG; Start 09/10/18 at 09:00 Tramadol HCl (Ultram) 100 mg Q6 PRN PO PAIN Last administered on 09/16/18 19:46; Admin Dose 100 MG; Start 09/10/18 at 05:00 Valproic Acid (Depakene) 250 mg BID PO Last administered on 09/17/18 08:46; Admin Dose 250 MG; Start 09/10/18 at 09:00 Fish Oil (Fish Oil) 2,000 mg BID PO Last administered on 09/17/18 08:47; Admin Dose 2,000 MG; Start 09/10/18 at 09:00 Insulin Aspart (Novolog Insulin Pen) NOVOLOG *MODERATE* ALGORITHM WITH MEALS BEDTIME SC Last administered on 09/17/18 08:56; Admin Dose 6 UNIT; Start 09/10/18 at 07:55 Miscellaneous Information 1 ea NOTE XX ; Start 09/10/18 at 06:00 Glucose (Glutose) 15 gm Q15M PRN PO DECREASED GLUCOSE; Start 09/10/18 at 06:00 Glucose (Glutose) 22.5 gm Q15M PRN PO DECREASED GLUCOSE; Start 09/10/18 at 06:00 Dextrose (D50w Syringe) 25 ml Q15M PRN IV DECREASED GLUCOSE; Start 09/10/18 at 06:00 Dextrose (D50w Syringe) 50 ml Q15M PRN IV DECREASED GLUCOSE; Start 09/10/18 at 06:00 Glucagon (Glucagen) 1 mg Q15M PRN IM DECREASED GLUCOSE; Start 09/10/18 at 06:00 Glucose (Glutose) 15 gm Q15M PRN BUCCAL DECREASED GLUCOSE; Start 09/10/18 at 06:00 Insulin Glargine (Lantus) 44 units DAILY@0800 SC Last administered on 09/17/18at 08:54; Admin Dose 44 UNITS; Start 09/14/18 at 08:00 Insulin Aspart (Novolog Insulin Pen) 12 unit WITH MEALS SC Last administered on 09/17/18at 09:28; Admin Dose 12 UNIT; Start 09/14/18 at 17:55 Daptomycin 470 mg/ Sodium Chloride 100 ml @ 200 mls/hr Q24H IVPB Last administered on 09/16/18at 23:23; Admin Dose 200 MLS/HR; Start 09/16/18 at 22:00 Allergies: Coded Allergies: No Known Allergy (Unverified , 07/11/16) Past Surgical History Past Surgical Hx: cholecystectomy, other (lithotripsy ) Social History Alcohol Use: none Smoking Status: Current every day smoker Drug Use: none Exam/Review of Systems Vital Signs Vitals Vital Signs Date Temp Pulse Resp B/P (MAP) Pulse Ox O2 O2 Flow FiO2 Time Delivery Rate 09/17/18 Nasal 2.0 08:15 Cannula 09/17/18 98.0 86 18 143/73 91 07:23 (96) 09/13/18 21 18:52 Intake and Output 09/16/18 09/16/18 09/17/18 1414:59 22:59 06:59 IntakeIntake Total 1040 ml 730 ml 100 ml BalanceBalance 1040 ml 730 ml 100 ml Exam Exam General: This gentleman no acute distress HEENT: NC/AT. pupils are equal. round. NECK: NO JVD. no stridor. CV: RRR. systolic murmur; no gallop or rubs. PULM: no wheezing or rhonchi. GI: SOFT, obese NT, ND, no rebound or guarding Extremity: + Left lower extremity edema and tenderness to palpation neuro: awake and alert, OX3. Psych: calm and pleasant rectal: deferred : normal EKG has shown normal sinus rhythm. Nonspecific ST abnormality Labs Result Diagram: 09/15/18 0545 09/16/18 0524 Results 24hrs Laboratory Tests Test 09/16/18 12:38 09/16/18 17:17 09/16/18 21:11 09/17/18 01:19 Bedside Glucose 171 75 104 135 Test 09/17/18 08:45 Bedside Glucose 222 H Medications Medications Current Medications IV Flush (NS 3 ml) 3 ml PER PROTOCOL IV ; Start 09/10/18 at 05:00 Ondansetron HCl (Zofran Inj) 4 mg Q6H PRN IV NAUSEA/VOMITING Last administered on 09/10/18at 09:43; Admin Dose 4 MG; Start 09/10/18 at 05:00 Nitroglycerin (Nitroglycerin (Sl Tab) 0.4 Mg) 1 tab Q5M PRN SL .CHEST PAIN; Start 09/10/18 at 05:00 Acetaminophen (Tylenol Tab) 650 mg Q6H PRN PO .PAIN 1-3 OR TEMP Last administered on 09/10/18at 12:23; Admin Dose 650 MG; Start 09/10/18 at 05:00 Heparin Sodium (Porcine) (Heparin (5000 Units/1ml)) 5,000 unit Q12 SC Last administered on 09/17/18at 08:56; Admin Dose 5,000 UNIT; Start 09/10/18 at 09:00 Albuterol/ Ipratropium (Duoneb) 3 ml Q2H RESP THERAPY PRN HHN SHORTNESS OF BREATH Last administered on 09/10/18at 08:40; Admin Dose 3 ML; Start 09/10/18 at 05:00 Alprazolam (Xanax) 0.5 mg TID PRN PO ANXIETY; Start 09/10/18 at 05:00 Aspirin (Aspirin) 81 mg DAILY PO Last administered on 09/17/18at 08:48; Admin Dose 81 MG; Start 09/10/18 at 09:00 Atorvastatin Calcium (Lipitor) 80 mg HS PO Last administered on 09/16/18 21:16; Admin Dose 80 MG; Start 09/10/18 at 21:00 Carvedilol (Coreg) 6.25 mg BID PO Last administered on 09/17/18 08:46; Admin Dose 6.25 MG; Start 09/10/18 at 09:00 Furosemide (Lasix) 40 mg DAILY PO Last administered on 09/17/18 08:48; Admin Dose 40 MG; Start 09/10/18 at 09:00 Gabapentin (Neurontin) 300 mg TID PO Last administered on 09/17/18 08:48; Admin Dose 300 MG; Start 09/10/18 at 09:00 Hydralazine HCl (Apresoline) 10 mg Q12 PO Last administered on 09/16/18 21:15; Admin Dose 10 MG; Start 09/10/18 at 09:00 Isosorbide Dinitrate (Isordil) 20 mg TID PO Last administered on 09/17/18 08:46; Admin Dose 20 MG; Start 09/10/18 at 09:00 Montelukast Sodium (Singulair) 10 mg HS PO Last administered on 09/16/18 21:15; Admin Dose 10 MG; Start 09/10/18 at 21:00 Ranolazine (Ranexa) 1,000 mg Q12 PO Last administered on 09/17/18 08:45; Admin Dose 1,000 MG; Start 09/10/18 at 09:00 Tramadol HCl (Ultram) 100 mg Q6 PRN PO PAIN Last administered on 09/16/18 19:46; Admin Dose 100 MG; Start 09/10/18 at 05:00 Valproic Acid (Depakene) 250 mg BID PO Last administered on 09/17/18 08:46; Admin Dose 250 MG; Start 09/10/18 at 09:00 Fish Oil (Fish Oil) 2,000 mg BID PO Last administered on 09/17/18 08:47; Admin Dose 2,000 MG; Start 09/10/18 at 09:00 Insulin Aspart (Novolog Insulin Pen) NOVOLOG *MODERATE* ALGORITHM WITH MEALS BEDTIME SC Last administered on 09/17/18 08:56; Admin Dose 6 UNIT; Start 09/10/18 at 07:55 Miscellaneous Information 1 ea NOTE XX ; Start 09/10/18 at 06:00 Glucose (Glutose) 15 gm Q15M PRN PO DECREASED GLUCOSE; Start 09/10/18 at 06:00 Glucose (Glutose) 22.5 gm Q15M PRN PO DECREASED GLUCOSE; Start 09/10/18 at 06:00 Dextrose (D50w Syringe) 25 ml Q15M PRN IV DECREASED GLUCOSE; Start 09/10/18 at 06:00 Dextrose (D50w Syringe) 50 ml Q15M PRN IV DECREASED GLUCOSE; Start 09/10/18 at 06:00 Glucagon (Glucagen) 1 mg Q15M PRN IM DECREASED GLUCOSE; Start 09/10/18 at 06:00 Glucose (Glutose) 15 gm Q15M PRN BUCCAL DECREASED GLUCOSE; Start 09/10/18 at 06:00 Insulin Glargine (Lantus) 44 units DAILY@0800 SC Last administered on 09/17/18at 08:54; Admin Dose 44 UNITS; Start 09/14/18 at 08:00 Insulin Aspart (Novolog Insulin Pen) 12 unit WITH MEALS SC Last administered on 09/17/18at 09:28; Admin Dose 12 UNIT; Start 09/14/18 at 17:55 Daptomycin 470 mg/ Sodium Chloride 100 ml @ 200 mls/hr Q24H IVPB Last administered on 09/16/18at 23:23; Admin Dose 200 MLS/HR; Start 09/16/18 at 22:00 REESE TAVERA MD Sep 17, 2018 11:52
[2018-09-17 13:08] VITALS: BP 142/67; PULSE 77; RESP 18
--- NOTE | 2018-09-17 16:19 | PN ---
Date/Time of Note Date/Time of Note DATE: 09/17/18 TIME: 16:16 Assessment/Plan VTE Prophylaxis Risk score (from Nsg)>0 risk: 4 SCD applied (from Nsg): Yes Pharmacological prophylaxis: heparin Lines/Catheters IV Catheter Type (from Nrsg): Saline Lock Urinary Cath still in place: No Assessment/Plan Hospital Course 1. LLE swelling and pain: - Concering for arterial insufficiency. Dr Galloway has been consulted - I doubt this is cellulitis. I suspect there is lymphedema here with some s tasis dermatitis Type 1 diabetes with hyperglycemia-uncontrolled - Basal/bolus insulin Left inguinal lymphadenopathy: - s/p biopsy, benign CKD - Monitor Ischemic cardiomyopathy (EF 45% in 2016) - continue plavix. Dr Everett plannign for nuclear stress tomorrow 7. History of coronary disease with multiple stents in the past Continue cardiac meds 8. Hypertension Continue home meds Prophylaxis: Heparin DC planning: Patient is still having pain in the left lower extremity but is improving, patient also reports significant weakness in the lower extremities reports difficulty ambulating, continue PT and antibiotics, patient prefers to be discharged home rather than [facility], anticipate DC home in 1-2 days if patient can ambulate Result Diagram: 09/15/18 0545 09/16/18 0524 Results 24hrs Laboratory Tests Test 09/16/18 17:17 09/16/18 21:11 09/17/18 01:19 09/17/18 08:45 Bedside Glucose 75 104 135 222 H Test 09/17/18 12:58 Bedside Glucose 193 Subjective 24 Hr Interval Summary Free Text/Dictation Arterial duplex shows arterial insufficiency in LLE. Still with great amount of pain in leg Exam/Review of Systems Exam Vitals Vital Signs Date Temp Pulse Resp B/P (MAP) Pulse Ox O2 O2 Flow FiO2 Time Delivery Rate 09/17/18 98.2 77 18 142/67 97 Nasal 2.0 13:08 (92) Cannula 09/13/18 21 18:52 Intake and Output 09/16/18 09/16/18 09/17/18 1515:00 23:00 07:00 IntakeIntake Total 1040 ml 730 ml 100 ml BalanceBalance 1040 ml 730 ml 100 ml Exam LLE > RLE circumference. mild edema. Some erythema and scaled lesions there. Warm foot. Results Results 24hrs Laboratory Tests Test 09/16/18 17:17 09/16/18 21:11 09/17/18 01:19 09/17/18 08:45 Bedside Glucose 75 104 135 222 H Test 09/17/18 12:58 Bedside Glucose 193 Medications Medication Current Medications IV Flush (NS 3 ml) 3 ml PER PROTOCOL IV ; Start 09/10/18 at 05:00 Ondansetron HCl (Zofran Inj) 4 mg Q6H PRN IV NAUSEA/VOMITING Last administered on 09/10/18 09:43; Admin Dose 4 MG; Start 09/10/18 at 05:00 Nitroglycerin (Nitroglycerin (Sl Tab) 0.4 Mg) 1 tab Q5M PRN SL .CHEST PAIN; Start 09/10/18 at 05:00 Acetaminophen (Tylenol Tab) 650 mg Q6H PRN PO .PAIN 1-3 OR TEMP Last administered on 09/10/18 12:23; Admin Dose 650 MG; Start 09/10/18 at 05:00 Heparin Sodium (Porcine) (Heparin (5000 Units/1ml)) 5,000 unit Q12 SC Last administered on 09/17/18 08:56; Admin Dose 5,000 UNIT; Start 09/10/18 at 09:00 Albuterol/ Ipratropium (Duoneb) 3 ml Q2H RESP THERAPY PRN HHN SHORTNESS OF BREATH Last administered on 09/10/18 08:40; Admin Dose 3 ML; Start 09/10/18 at 05:00 Alprazolam (Xanax) 0.5 mg TID PRN PO ANXIETY; Start 09/10/18 at 05:00 Aspirin (Aspirin) 81 mg DAILY PO Last administered on 09/17/18 08:48; Admin Dose 81 MG; Start 09/10/18 at 09:00 Atorvastatin Calcium (Lipitor) 80 mg HS PO Last administered on 09/16/18 21:16; Admin Dose 80 MG; Start 09/10/18 at 21:00 Carvedilol (Coreg) 6.25 mg BID PO Last administered on 09/17/18 08:46; Admin Dose 6.25 MG; Start 09/10/18 at 09:00 Furosemide (Lasix) 40 mg DAILY PO Last administered on 09/17/18 08:48; Admin Dose 40 MG; Start 09/10/18 at 09:00 Gabapentin (Neurontin) 300 mg TID PO Last administered on 09/17/18 13:04; Admin Dose 300 MG; Start 09/10/18 at 09:00 Hydralazine HCl (Apresoline) 10 mg Q12 PO Last administered on 09/16/18 21:15; Admin Dose 10 MG; Start 09/10/18 at 09:00 Isosorbide Dinitrate (Isordil) 20 mg TID PO Last administered on 09/17/18 13:07; Admin Dose 20 MG; Start 09/10/18 at 09:00 Montelukast Sodium (Singulair) 10 mg HS PO Last administered on 09/16/18 21:15; Admin Dose 10 MG; Start 09/10/18 at 21:00 Ranolazine (Ranexa) 1,000 mg Q12 PO Last administered on 09/17/18 08:45; Admin Dose 1,000 MG; Start 09/10/18 at 09:00 Tramadol HCl (Ultram) 100 mg Q6 PRN PO PAIN Last administered on 09/16/18 19:46; Admin Dose 100 MG; Start 09/10/18 at 05:00 Valproic Acid (Depakene) 250 mg BID PO Last administered on 09/17/18 08:46; Admin Dose 250 MG; Start 09/10/18 at 09:00 Fish Oil (Fish Oil) 2,000 mg BID PO Last administered on 09/17/18 08:47; Admin Dose 2,000 MG; Start 09/10/18 at 09:00 Insulin Aspart (Novolog Insulin Pen) NOVOLOG *MODERATE* ALGORITHM WITH MEALS BEDTIME SC Last administered on 09/17/18 13:00; Admin Dose 4 UNIT; Start 09/10/18 at 07:55 Miscellaneous Information 1 ea NOTE XX ; Start 09/10/18 at 06:00 Glucose (Glutose) 15 gm Q15M PRN PO DECREASED GLUCOSE; Start 09/10/18 at 06:00 Glucose (Glutose) 22.5 gm Q15M PRN PO DECREASED GLUCOSE; Start 09/10/18 at 0 6:00 Dextrose (D50w Syringe) 25 ml Q15M PRN IV DECREASED GLUCOSE; Start 09/10/18 at 06:00 Dextrose (D50w Syringe) 50 ml Q15M PRN IV DECREASED GLUCOSE; Start 09/10/18 at 06:00 Glucagon (Glucagen) 1 mg Q15M PRN IM DECREASED GLUCOSE; Start 09/10/18 at 06:00 Glucose (Glutose) 15 gm Q15M PRN BUCCAL DECREASED GLUCOSE; Start 09/10/18 at 06:00 Insulin Glargine (Lantus) 44 units DAILY@0800 SC Last administered on 09/17/18at 08:54; Admin Dose 44 UNITS; Start 09/14/18 at 08:00 Insulin Aspart (Novolog Insulin Pen) 12 unit WITH MEALS SC Last administered on 09/17/18at 12:59; Admin Dose 12 UNIT; Start 09/14/18 at 17:55 Daptomycin 470 mg/ Sodium Chloride 100 ml @ 200 mls/hr Q24H IVPB Last administered on 09/16/18at 23:23; Admin Dose 200 MLS/HR; Start 09/16/18 at 22:00 DAVID KLEIN MD Sep 17, 2018 16:19
--- NOTE | 2018-09-17 17:05 | CONS ---
DATE OF ADMISSION: 09/09/2018 DATE OF CONSULTATION: 09/17/2018 REFERRING PHYSICIAN: Yossi Alcaraz MD REASON FOR CONSULTATION: Bilateral lower extremity tibial artery disease. HISTORY OF PRESENT ILLNESS: This is a 57-year-old diabetic, hypertensive, morbidly obese gentleman w ith chronic kidney disease, acute renal failure, coronary artery disease and long time smoker. He wa s admitted with chest pain, leg swelling and some pain when he walks as well. He was recently found to be an abscess in the left groin and cellulitis in the left leg. He had a venous scan which was ne gative for DVT. He had an arterial duplex done yesterday that shows basically tibial disease bilater ally. He does not have any rest pain and no wounds on the feet. He says his legs hurt when he walks , but it is really not clear if it is from the swelling or from claudication. It is possible combina tion of both. PAST MEDICAL HISTORY: Significant for coronary artery disease. He has had multiple PCIs in the past . He was smoking until about 4 or 5 years ago. He is morbidly obese. He has a huge abdomen. He silvestre s hypertension, congestive heart failure. He has had a stroke in the past. MEDICATIONS: Consist of: 1. Valproic acid. 2. Tramadol. 3. Acyclovir. 4. Fish oil. 5. Isosorbide dinitrate. 6. Lantus. 7. NovoLog. 8. Alprazolam. 9. Carvedilol. 10. Lasix. 11. Gabapentin. 12. Atorvastatin. 13. Aspirin. 14. Hydralazine. 15. Ranexa. ALLERGIES: HE HAS NO KNOWN DRUG ALLERGIES. FAMILY HISTORY: Significant for cholecystectomy and lithotripsy. He has had kidney stones in the [facility]. SOCIAL HISTORY: He says he stopped smoking 4 or 5 years ago. REVIEW OF SYSTEMS: He currently denies any pain in the feet. He is kind of sleepy but is awake and alert when you arouse him. He has no abdominal or back pain. He has not had any recent fevers or ch ills. PHYSICAL EXAMINATION GENERAL: He is a middle-aged [place] gentleman. He speaks Russian. VITAL SIGNS: He has been afebrile. His blood pressure is 142/67, heart rate 77, respiratory rate is 18. He is 97% on 2 liters nasal cannula. PERIPHERAL VASCULAR: He has 2+ carotid, radial and brachial pulses bilaterally. LUNGS: Clear. HEART: Regular rate and rhythm. ABDOMEN: Hugely obese, soft, nontender. EXTREMITIES: I cannot feel femoral pulses, maybe his body habitus. He has 1 to 2+ popliteal pulses. I do not feel DP or PT pulses in either foot. The feet however are both warm and pink. No discolo ration. No mottling. He has got normal motion. He has got peripheral neuropathy from his diabetes. No ulcerations. He is very edematous in both legs, a little bit worse on the left than the right w ith some chronic venous stasis dermatitis in the left calf region. LABORATORY DATA: White count has come down to 8. His creatinine has gone up. It actually came in a s 1.3. It is now up to 1.9. DIAGNOSTIC DATA: He had a biopsy of left inguinal lymph nodes that showed lymphadenitis and cellulit is consistent with his symptoms. I reviewed his arterial and venous studies. Again, the venous dupl ex was negative. The arterial study shows diffuse tibial disease. There is normal flow down into th e pop and then tibial vessels are just poorly visualized with diffuse disease. IMPRESSION: From a vascular standpoint, he is morbidly obese that is why he has lower extremity swel ling. He has poorly controlled diabetes and long-term smoking history and he has diffuse tibial dise ase that is chronic. He has got no breast pain, no foot ulcers. He does not need any intervention f or this. I think pain when he walks is mostly from his cellulitis and the chronic leg edema. He wou ld probably benefit from compression stockings in the future and I would be happy to see him in the [facility] for followup once he is discharged. He is going to undergo cardiac jamir p while he is here as well. There is no need for any arterial intervention at this time. He has no deep venous thrombosis. Dictated By: BILL ORTIZ/GABY Conf#: [id number] DID#: [id number] CC: YOSSI ALCARAZ MD; DENNIS LEWIS MD; DERIK LOVE MD;*[facility]*
--- NOTE | 2018-09-17 17:58 | PN ---
DATE: 09/17/2018 The patient is basically unchanged. He continues to complain of pain in the left lower extremity. Arterial studies have been done in the lower extremity. There is 50% stenosis of the superficial fem oral artery on the right side. The left lower extremity shows changes consistent with an intrinsic d isease. The left calf arteries are occluded where visualized. DISCUSSION: The pain in the distal left lower extremity may be on the basis of vascular insufficienc y. This, however, would not explain the pathologic findings and lymphadenitis and cellulitis in the perilymphatic tissue. Dictated By: GEORGE VO MD SR/NTS Conf#: [id number] DID#: [id number] CC: DERIK LOVE MD;*End[facility]*
[2018-09-17 20:00] VITALS: BP 138/64; PULSE 74; RESP 17
[2018-09-17] MEDS: ATORVASTATIN 80 MG TAB PO SCH (21:31)
[2018-09-17] MEDS: MONTELUKAST 10 MG TAB PO SCH (21:31)
[2018-09-17] MEDS: DAPTOMYCIN 470 MG in SOD CHLORIDE 0.9% 100 ML IVPB SCH (21:54)
[2018-09-18] MEDS: morphine 2 MG INJ IV PRN ×5 (03:21→23:22)
[2018-09-18 07:48] VITALS: BP 138/70; PULSE 74; RESP 18
--- NOTE | 2018-09-18 08:30 | CONS ---
Consult Date/Type/Reason Admit Date/Time Sep 09, 2018 at 21:23 Initial Consult Date 09/17/18 Type of Consultation: cv Requesting Provider: DAVID KLEIN MD Date/Time of Note DATE: 09/18/18 TIME: 08:28 Subjective Cardiology follow-up progress Subjective Case discussed with staff. Patient with no chest pain or pressure now. He denies palpitation to me. Shortness of breath remains stable Objective: General: This gentleman no acute distress HEENT: NC/AT. pupils are equal. round. NECK: NO JVD. no stridor. CV: RRR. systolic murmur; no gallop or rubs. PULM: no wheezing or rhonchi. GI: SOFT, obese NT, ND, no rebound or guarding Extremity: + Left lower extremity edema and tenderness to palpation neuro: awake and alert, OX3. Psych: calm and pleasant rectal: deferred : normal EKG has shown normal sinus rhythm. Nonspecific ST abnormality Objective Vitals Vital Signs Date Temp Pulse Resp B/P (MAP) Pulse Ox O2 O2 Flow FiO2 Time Delivery Rate 09/18/18 97.9 74 18 138/70 94 Room Air 07:48 (92) 09/18/18 2.0 03:18 Intake and Output 09/17/18 09/17/18 09/18/18 1515:00 23:00 07:00 IntakeIntake Total 700 ml BalanceBalance 700 ml Results/Medications Result Diagram: 09/18/18 0538 09/18/18 0538 Results 24 hrs Laboratory Tests Test 09/17/18 08:45 09/17/18 12:58 09/17/18 17:16 09/17/18 21:40 Bedside Glucose 222 H 193 108 90 Test 09/18/18 05:37 09/18/18 05:38 Free Thyroxine 1.26 White Blood Count 6.5 # Red Blood Count 3.98 L Hemoglobin 9.7 L Hematocrit 30.9 L Mean Corpuscular Volume 77.6 L Mean Corpuscular 24.4 L Hemoglobin Mean Corpuscular 31.4 L Hemoglobin Concent Red Cell Distribution 16.4 H Width Platelet Count 245 # Mean Platelet Volume 10.4 Immature Granulocytes % 0.900 H Neutrophils % 64.8 Lymphocytes % 22.6 Monocytes % 8.8 Eosinophils % 2.6 Basophils % 0.3 Nucleated Red Blood 0.0 Cells % Immature Granulocytes # 0.060 H Neutrophils # 4.2 Lymphocytes # 1.5 Monocytes # 0.6 Eosinophils # 0.2 Basophils # 0.0 Nucleated Red Blood 0.0 Cells # Sodium Level 139 Potassium Level 4.5 Chloride Level 106 Carbon Dioxide Level 27 Anion Gap 6 Blood Urea Nitrogen 30 H Creatinine 1.90 H Est Glomerular Filtrat 36 L Rate mL/min Glucose Level 133 Calcium Level 8.5 Magnesium Level 2.0 Total Bilirubin 0.0 L Direct Bilirubin 0.00 Indirect Bilirubin 0.0 Aspartate Amino 50 H Transf (AST/SGOT) Alanine 46 Aminotransferase (ALT/SG PT) Alkaline Phosphatase 249 H Creatine Kinase 28 Creatine Kinase Index 6.9 Creatinine Kinase MB 1.94 (Mass) Troponin I < 0.012 B-Type Natriuretic 5150 H Peptide Total Protein 5.5 L Albumin 2.8 L Globulin 2.70 Albumin/Globulin Ratio 1.03 Triglycerides Level 123 Cholesterol Level 119 LDL Cholesterol, 74 Calculated HDL Cholesterol 20 L Cholesterol/HDL Ratio 5.9 Thyroid Stimulating Pending Hormone (TSH) Home Meds Active Scripts Valproic Acid* (Depakene*) 250 Mg Capsule, 250 MG PO BID for 14 Days, CAP Prov:BRANDON WHITNEY 02/13/17 Tramadol HCl (Tramadol HCl) 50 Mg Tablet, 100 MG PO Q6 PRN for PAIN, #30 TAB Prov:BRANDON WHITNEY 02/13/17 Acyclovir* (Acyclovir*) 800 Mg Tablet, 800 MG PO 5 TIMES DAILY for 7 Days, TAB Prov:BRANDON WHITNEY 02/13/17 Montelukast Sodium* (Montelukast Sodium*) 10 Mg Tablet, 10 MG PO HS, #30 TAB Prov:NARENDRA CHAWLA MD 07/19/16 [place]-3/Dha/Epa/Fish Oil (FISH OIL EC 1,000 MG SOFTGEL) 1 Each Capsule.dr, 2000 MG PO BID, #60 Prov:NARENDRA CHAWLA MD 07/19/16 Isosorbide Dinitrate* (Isosorbide Dinitrate*) 20 Mg Tablet, 20 MG PO TID, #90 TAB Prov:NARENDRA CHAWLA MD 07/19/16 Insulin Glargine* (Lantus*) 100 Unit/Ml Soln, 43 UNIT SC HS for 30 Days Prov:NARENDRA CHAWLA MD 07/19/16 Insulin Aspart* (Novolog Insulin Pen*) 100 Unit/Ml Soln, 15 UNIT SC AC MEALS for 30 Days Prov:NARENDRA CHAWLA MD 07/19/16 Alprazolam* (Alprazolam*) 0.25 Mg Tablet, 0.5 MG PO TID PRN for ANXIETY, #20 TAB Prov:NARENDRA CHAWLA MD 07/19/16 Carvedilol* (Carvedilol*) 12.5 Mg Tablet, 6.25 MG PO BID for 30 Days, #60 TAB Prov:NARENDRA CHAWLA MD 07/19/16 Furosemide (Lasix) 40 Mg Tab, 40 MG PO DAILY for 30 Days, TAB Prov:JESE MCCOY 03/26/16 Gabapentin* (Gabapentin*) 300 Mg Capsule, 300 MG PO TID for 30 Days, CAP Prov:JESE MCCOY 03/26/16 Atorvastatin* (Atorvastatin*) 80 Mg Tablet, 80 MG PO HS for 30 Days, TAB Prov:JESE MCCOY 03/26/16 Aspirin (Aspirin) 81 Mg Chew, 81 MG PO DAILY, #30 TAB 12 Refills Prov:JESE MCCOY 03/26/16 Reported Medications Hydralazine Hcl* (Hydralazine Hcl*) 10 Mg Tablet, 10 MG PO Q12, #120 TAB 02/13/17 Ranolazine* (Ranexa*) 1,000 Mg Tab.sr.12h, 1000 MG PO Q12, TAB 06/08/16 Medications Current Medications IV Flush (NS 3 ml) 3 ml PER PROTOCOL IV ; Start 09/10/18 at 05:00 Ondansetron HCl (Zofran Inj) 4 mg Q6H PRN IV NAUSEA/VOMITING Last administered on 09/10/18at 09:43; Admin Dose 4 MG; Start 09/10/18 at 05:00 Nitroglycerin (Nitroglycerin (Sl Tab) 0.4 Mg) 1 tab Q5M PRN SL .CHEST PAIN; Start 09/10/18 at 05:00 Acetaminophen (Tylenol Tab) 650 mg Q6H PRN PO .PAIN 1-3 OR TEMP Last administered on 09/10/18at 12:23; Admin Dose 650 MG; Start 09/10/18 at 05:00 Heparin Sodium (Porcine) (Heparin (5000 Units/1ml)) 5,000 unit Q12 SC Last administered on 09/17/18 21:33; Admin Dose 5,000 UNIT; Start 09/10/18 at 09:00 Albuterol/ Ipratropium (Duoneb) 3 ml Q2H RESP THERAPY PRN HHN SHORTNESS OF BREATH Last administered on 09/10/18 08:40; Admin Dose 3 ML; Start 09/10/18 at 05:00 Alprazolam (Xanax) 0.5 mg TID PRN PO ANXIETY; Start 09/10/18 at 05:00 Aspirin (Aspirin) 81 mg DAILY PO Last administered on 09/17/18 08:48; Admin Dose 81 MG; Start 09/10/18 at 09:00 Atorvastatin Calcium (Lipitor) 80 mg HS PO Last administered on 09/17/18 21:31; Admin Dose 80 MG; Start 09/10/18 at 21:00 Carvedilol (Coreg) 6.25 mg BID PO Last administered on 09/17/18 21:32; Admin Dose 6.25 MG; Start 09/10/18 at 09:00 Furosemide (Lasix) 40 mg DAILY PO Last administered on 09/17/18 08:48; Admin Dose 40 MG; Start 09/10/18 at 09:00 Gabapentin (Neurontin) 300 mg TID PO Last administered on 09/17/18 21:31; Admin Dose 300 MG; Start 09/10/18 at 09:00 Hydralazine HCl (Apresoline) 10 mg Q12 PO Last administered on 09/17/18 21:31; Admin Dose 10 MG; Start 09/10/18 at 09:00 Isosorbide Dinitrate (Isordil) 20 mg TID PO Last administered on 09/17/18 21:32; Admin Dose 20 MG; Start 09/10/18 at 09:00 Montelukast Sodium (Singulair) 10 mg HS PO Last administered on 09/17/18 21:31; Admin Dose 10 MG; Start 09/10/18 at 21:00 Ranolazine (Ranexa) 1,000 mg Q12 PO Last administered on 09/17/18 21:35; Admin Dose 1,000 MG; Start 09/10/18 at 09:00 Valproic Acid (Depakene) 250 mg BID PO Last administered on 09/17/18 21:45; Admin Dose 250 MG; Start 09/10/18 at 09:00 Fish Oil (Fish Oil) 2,000 mg BID PO Last administered on 09/17/18 21:31; Admin Dose 2,000 MG; Start 09/10/18 at 09:00 Insulin Aspart (Novolog Insulin Pen) NOVOLOG *MODERATE* ALGORITHM WITH MEALS BEDTIME SC Last administered on 09/17/18 13:00; Admin Dose 4 UNIT; Start 09/10/18 at 07:55 Miscellaneous Information 1 ea NOTE XX ; Start 09/10/18 at 06:00 Glucose (Glutose) 15 gm Q15M PRN PO DECREASED GLUCOSE; Start 09/10/18 at 06:00 Glucose (Glutose) 22.5 gm Q15M PRN PO DECREASED GLUCOSE; Start 09/10/18 at 06:00 Dextrose (D50w Syringe) 25 ml Q15M PRN IV DECREASED GLUCOSE; Start 09/10/18 at 06:00 Dextrose (D50w Syringe) 50 ml Q15M PRN IV DECREASED GLUCOSE; Start 09/10/18 at 06:00 Glucagon (Glucagen) 1 mg Q15M PRN IM DECREASED GLUCOSE; Start 09/10/18 at 06:00 Glucose (Glutose) 15 gm Q15M PRN BUCCAL DECREASED GLUCOSE; Start 09/10/18 at 06:00 Insulin Glargine (Lantus) 44 units DAILY@0800 SC Last administered on 09/17/18 08:54; Admin Dose 44 UNITS; Start 09/14/18 at 08:00 Insulin Aspart (Novolog Insulin Pen) 12 unit WITH MEALS SC Last administered on 09/17/18 17:20; Admin Dose 12 UNIT; Start 09/14/18 at 17:55 Daptomycin 470 mg/ Sodium Chloride 100 ml @ 200 mls/hr Q24H IVPB Last administered on 09/17/18 21:54; Admin Dose 200 MLS/HR; Start 09/16/18 at 22:00 Morphine Sulfate (morphine) 1 mg Q4H PRN IV SEVERE PAIN LEVEL 7-10 Last administered on 09/18/18 03:21; Admin Dose 1 MG; Start 09/17/18 at 17:30 Assessment/Plan Hospital Course (Demo Recall) 1. Chest pain consistent with angina 2. Sepsis/bacteremia 3. Acute renal failure 4. Diabetes 5. Hypertension 6. History of coronary artery disease or multiple PCI 7. History of smoking 8. Peripheral vascular disease Recommendations: Antibiotic management as per internal medicine and ID recommendations Continue with aspirin Beta-hugo as tolerated We will schedule the patient for Lexiscan stress test today to assess for significant ischemia. We will also optimize medical therapy. Given his abnormal renal function and acute renal failure we will hold off on coronary angiogram for now unless absolutely emergently needed Thank you for his referral will continue to follow along with you REESE TAVERA MD [facility] ERESE TAVERA MD Sep 18, 2018 08:30
[2018-09-18] MEDS ORDERED: REGADENOSON 0.4 MG/5 ML SYG ONE (08:34)
[2018-09-18] MEDS: VALPROIC ACID 250 MG CAP PO SCH ×2 (09:43→20:41)
[2018-09-18] MEDS: RANOLAZINE (SR) 500 MG TAB PO SCH ×2 (09:43→20:41)
[2018-09-18] MEDS: GABAPENTIN 300 MG CAP PO SCH ×3 (09:44→20:41)
[2018-09-18] MEDS: FUROSEMIDE 40 MG TAB PO SCH (09:44)
[2018-09-18] MEDS: ISOSORBIDE DINITRATE 20 MG TAB PO SCH ×3 (09:44→20:41)
[2018-09-18] MEDS: ASPIRIN 81 MG TAB PO SCH (09:45)
[2018-09-18] MEDS: FISH OIL 1,000 MG CAP PO SCH ×2 (09:45→21:29)
[2018-09-18] MEDS: HEPARIN 5,000 UNIT/1 ML VIAL SC SCH ×2 (09:49→20:49)
[2018-09-18] MEDS: INSULIN GLARGINE [LANTus] (100 UNITS/ML) SYG SC SCH (09:50)
[2018-09-18] MEDS: INSULIN ASPART [NOVOLOG] 3 ML PEN SC SCH ×7 (09:51→20:50)
--- NOTE | 2018-09-18 11:19 | CONS ---
Assessment/Plan Assessment/Plan Hospital Course (Demo Recall) All noted, no acute events Microbiology: Blood culture on admission grew beta-hemolytic strep species CT of the abdomen and pelvis on admission revealed retroperitoneal left iliac chain and left inguinal lymphadenopathy with largest lymph node measures 1.5 cm in the left inguinal region. Moderate diffuse peribronchial thickening suggestive of bronchitis with likely superimposed mass mild interstitial edema. Splenomegaly, unchanged since 2017 CT. Antimicrobials: Daptomycin Physical examination: Well-nourished well-developed middle-aged [place]i-speaking man who is alert in no distress. Head atraumatic normocephalic. Neck is supple. Chest rise symmetrical, breath sounds diminished bases. Heart: S1-S2. Abdomen distended soft bowel sounds present. Extremities without cyanosis, LLE swelling/erythema Assessment: 1. S/p sepsis, present on admission 2. Beta-hemolytic strep bacteremia ==>2D echo revealed no vegetations, repeat bld cx neg 3. LLE cellulitis/Acute lymphadenitis and perinodal cellulitis per pathology. 4. Lymphadenopathy status post left groin lymph node biopsy==> neg malignancy 5. Acute kidney failure 6. Diabetes 7. Ischemic cardiomyopathy 7. Obesity 8. PAD Plan: Stable, continue abx, keep LE elevated Consultation Date/Type/Reason Admit Date/Time Sep 09, 2018 at 21:23 Initial Consult Date 09/10/18 Type of Consult id Requesting Provider: DAVID KLEIN MD Date/Time of Note DATE: 09/18/18 TIME: 11:18 Exam/Review of Systems Exam Vitals Vital Signs Date Temp Pulse Resp B/P (MAP) Pulse Ox O2 O2 Flow FiO2 Time Delivery Rate 09/18/18 Nasal 2.0 08:00 Cannula 09/18/18 97.9 74 18 138/70 94 07:48 (92) Intake and Output 09/17/18 09/17/18 09/18/18 1515:00 23:00 07:00 IntakeIntake Total 700 ml BalanceBalance 700 ml Results Result Diagram: 09/18/18 0538 09/18/18 0538 Results 24hrs Laboratory Tests Test 09/17/18 12:58 09/17/18 17:16 09/17/18 21:40 09/18/18 05:37 Bedside Glucose 193 108 90 Free Thyroxine 1.26 Test 09/18/18 05:38 09/18/18 09:40 White Blood Count 6.5 # Red Blood Count 3.98 L Hemoglobin 9.7 L Hematocrit 30.9 L Mean Corpuscular Volume 77.6 L Mean Corpuscular 24.4 L Hemoglobin Mean Corpuscular 31.4 L Hemoglobin Concent Red Cell Distribution 16.4 H Width Platelet Count 245 # Mean Platelet Volume 10.4 Immature Granulocytes % 0.900 H Neutrophils % 64.8 Lymphocytes % 22.6 Monocytes % 8.8 Eosinophils % 2.6 Basophils % 0.3 Nucleated Red Blood 0.0 Cells % Immature Granulocytes # 0.060 H Neutrophils # 4.2 Lymphocytes # 1.5 Monocytes # 0.6 Eosinophils # 0.2 Basophils # 0.0 Nucleated Red Blood 0.0 Cells # Sodium Level 139 Potassium Level 4.5 Chloride Level 106 Carbon Dioxide Level 27 Anion Gap 6 Blood Urea Nitrogen 30 H Creatinine 1.90 H Est Glomerular Filtrat 36 L Rate mL/min Glucose Level 133 Calcium Level 8.5 Magnesium Level 2.0 Total Bilirubin 0.0 L Direct Bilirubin 0.00 Indirect Bilirubin 0.0 Aspartate Amino 50 H Transf (AST/SGOT) Alanine 46 Aminotransferase (ALT/SG PT) Alkaline Phosphatase 249 H Creatine Kinase 28 Creatine Kinase Index 6.9 Creatinine Kinase MB 1.94 (Mass) Troponin I < 0.012 B-Type Natriuretic 5150 H Peptide Total Protein 5.5 L Albumin 2.8 L Globulin 2.70 Albumin/Globulin Ratio 1.03 Triglycerides Level 123 Cholesterol Level 119 LDL Cholesterol, 74 Calculated HDL Cholesterol 20 L Cholesterol/HDL Ratio 5.9 Thyroid Stimulating 0.860 Hormone (TSH) Bedside Glucose 173 Medications Medication Current Medications IV Flush (NS 3 ml) 3 ml PER PROTOCOL IV ; Start 09/10/18 at 05:00 Ondansetron HCl (Zofran Inj) 4 mg Q6H PRN IV NAUSEA/VOMITING Last administered on 09/10/18at 09:43; Admin Dose 4 MG; Start 09/10/18 at 05:00 Nitroglycerin (Nitroglycerin (Sl Tab) 0.4 Mg) 1 tab Q5M PRN SL .CHEST PAIN; S tart 09/10/18 at 05:00 Acetaminophen (Tylenol Tab) 650 mg Q6H PRN PO .PAIN 1-3 OR TEMP Last administ ered on 09/10/18at 12:23; Admin Dose 650 MG; Start 09/10/18 at 05:00 Heparin Sodium (Porcine) (Heparin (5000 Units/1ml)) 5,000 unit Q12 SC Last administered on 09/18/18 09:49; Admin Dose 5,000 UNIT; Start 09/10/18 at 09:00 Albuterol/ Ipratropium (Duoneb) 3 ml Q2H RESP THERAPY PRN HHN SHORTNESS OF BREATH Last administered on 09/10/18 08:40; Admin Dose 3 ML; Start 09/10/18 at 05:00 Alprazolam (Xanax) 0.5 mg TID PRN PO ANXIETY; Start 09/10/18 at 05:00 Aspirin (Aspirin) 81 mg DAILY PO Last administered on 09/18/18 09:45; Admin Dose 81 MG; Start 09/10/18 at 09:00 Atorvastatin Calcium (Lipitor) 80 mg HS PO Last administered on 09/17/18 21:31; Admin Dose 80 MG; Start 09/10/18 at 21:00 Carvedilol (Coreg) 6.25 mg BID PO Last administered on 09/18/18 09:44; Admin Dose 6.25 MG; Start 09/10/18 at 09:00 Furosemide (Lasix) 40 mg DAILY PO Last administered on 09/18/18 09:44; Admin Dose 40 MG; Start 09/10/18 at 09:00 Gabapentin (Neurontin) 300 mg TID PO Last administered on 09/18/18 09:44; Admin Dose 300 MG; Start 09/10/18 at 09:00 Hydralazine HCl (Apresoline) 10 mg Q12 PO Last administered on 09/18/18 09:44; Admin Dose 10 MG; Start 09/10/18 at 09:00 Isosorbide Dinitrate (Isordil) 20 mg TID PO Last administered on 09/18/18 09:44; Admin Dose 20 MG; Start 09/10/18 at 09:00 Montelukast Sodium (Singulair) 10 mg HS PO Last administered on 09/17/18 21:31; Admin Dose 10 MG; Start 09/10/18 at 21:00 Ranolazine (Ranexa) 1,000 mg Q12 PO Last administered on 09/18/18 09:43; Admin Dose 1,000 MG; Start 09/10/18 at 09:00 Valproic Acid (Depakene) 250 mg BID PO Last administered on 09/18/18 09:43; Admin Dose 250 MG; Start 09/10/18 at 09:00 Fish Oil (Fish Oil) 2,000 mg BID PO Last administered on 09/18/18 09:45; Admin Dose 2,000 MG; Start 09/10/18 at 09:00 Insulin Aspart (Novolog Insulin Pen) NOVOLOG *MODERATE* ALGORITHM WITH MEALS BEDTIME SC Last administered on 09/18/18 09:51; Admin Dose 2 UNIT; Start 09/10/18 at 07:55 Miscellaneous Information 1 ea NOTE XX ; Start 09/10/18 at 06:00 Glucose (Glutose) 15 gm Q15M PRN PO DECREASED GLUCOSE; Start 09/10/18 at 06:00 Glucose (Glutose) 22.5 gm Q15M PRN PO DECREASED GLUCOSE; Start 09/10/18 at 06:00 Dextrose (D50w Syringe) 25 ml Q15M PRN IV DECREASED GLUCOSE; Start 09/10/18 at 06:00 Dextrose (D50w Syringe) 50 ml Q15M PRN IV DECREASED GLUCOSE; Start 09/10/18 at 06:00 Glucagon (Glucagen) 1 mg Q15M PRN IM DECREASED GLUCOSE; Start 09/10/18 at 06:00 Glucose (Glutose) 15 gm Q15M PRN BUCCAL DECREASED GLUCOSE; Start 09/10/18 at 06:00 Insulin Glargine (Lantus) 44 units DAILY@0800 SC Last administered on 09/18/18 09:50; Admin Dose 44 UNITS; Start 09/14/18 at 08:00 Insulin Aspart (Novolog Insulin Pen) 12 unit WITH MEALS SC Last administered on 09/18/18 09:51; Admin Dose 12 UNIT; Start 09/14/18 at 17:55 Daptomycin 470 mg/ Sodium Chloride 100 ml @ 200 mls/hr Q24H IVPB Last administered on 09/17/18 21:54; Admin Dose 200 MLS/HR; Start 09/16/18 at 22:00 Morphine Sulfate (morphine) 1 mg Q4H PRN IV SEVERE PAIN LEVEL 7-10 Last adm inistered on 09/18/18 09:54; Admin Dose 1 MG; Start 09/17/18 at 17:30 BONNIE MONTILLA NP Sep 18, 2018 11:19
--- NOTE | 2018-09-18 11:38 | CONS ---
Assessment/Plan Assessment/Plan Assessment/Plan (Daily) 1. acute kidney injury due to ATN From pneumonia 2. sepsis due to pneumonia 3. pneumonia, worried about community acquired PNA 4. h/o HTn 5. h/o Myocardial infarction 6. h/o Lithotripsy before for left kidney stone Plan: BUN/Cr improved to 30/1.9, Bp stable IV abx Daptomycin and Vancomycin for PNA and Sepsis, renally dose all abx and monitor electrolyte S/P left groin LN biopsy negative for malignancy , acute lymphadenitis will follow up Consultation Date/Type/Reason Admit Date/Time Sep 09, 2018 at 21:23 Initial Consult Date 09/10/18 Type of Consult NEPHROLOGY Requesting Provider: DAVID KLEIN MD Date/Time of Note DATE: 09/18/18 TIME: 11:38 Exam/Review of Systems Exam Vitals Vital Signs Date Temp Pulse Resp B/P (MAP) Pulse Ox O2 O2 Flow FiO2 Time Delivery Rate 09/18/18 Nasal 2.0 08:00 Cannula 09/18/18 97.9 74 18 138/70 94 07:48 (92) Intake and Output 09/17/18 09/17/18 09/18/18 1515:00 23:00 07:00 IntakeIntake Total 700 ml BalanceBalance 700 ml Results Result Diagram: 09/18/18 0538 09/18/18 0538 Results 24hrs Laboratory Tests Test 09/17/18 12:58 09/17/18 17:16 09/17/18 21:40 09/18/18 05:37 Bedside Glucose 193 108 90 Free Thyroxine 1.26 Test 09/18/18 05:38 09/18/18 09:40 White Blood Count 6.5 # Red Blood Count 3.98 L Hemoglobin 9.7 L Hematocrit 30.9 L Mean Corpuscular Volume 77.6 L Mean Corpuscular 24.4 L Hemoglobin Mean Corpuscular 31.4 L Hemoglobin Concent Red Cell Distribution 16.4 H Width Platelet Count 245 # Mean Platelet Volume 10.4 Immature Granulocytes % 0.900 H Neutrophils % 64.8 Lymphocytes % 22.6 Monocytes % 8.8 Eosinophils % 2.6 Basophils % 0.3 Nucleated Red Blood 0.0 Cells % Immature Granulocytes # 0.060 H Neutrophils # 4.2 Lymphocytes # 1.5 Monocytes # 0.6 Eosinophils # 0.2 Basophils # 0.0 Nucleated Red Blood 0.0 Cells # Sodium Level 139 Potassium Level 4.5 Chloride Level 106 Carbon Dioxide Level 27 Anion Gap 6 Blood Urea Nitrogen 30 H Creatinine 1.90 H Est Glomerular Filtrat 36 L Rate mL/min Glucose Level 133 Calcium Level 8.5 Magnesium Level 2.0 Total Bilirubin 0.0 L Direct Bilirubin 0.00 Indirect Bilirubin 0.0 Aspartate Amino 50 H Transf (AST/SGOT) Alanine 46 Aminotransferase (ALT/SG PT) Alkaline Phosphatase 249 H Creatine Kinase 28 Creatine Kinase Index 6.9 Creatinine Kinase MB 1.94 (Mass) Troponin I < 0.012 B-Type Natriuretic 5150 H Peptide Total Protein 5.5 L Albumin 2.8 L Globulin 2.70 Albumin/Globulin Ratio 1.03 Triglycerides Level 123 Cholesterol Level 119 LDL Cholesterol, 74 Calculated HDL Cholesterol 20 L Cholesterol/HDL Ratio 5.9 Thyroid Stimulating 0.860 Hormone (TSH) Bedside Glucose 173 Medications Medication Current Medications IV Flush (NS 3 ml) 3 ml PER PROTOCOL IV ; Start 09/10/18 at 05:00 Ondansetron HCl (Zofran Inj) 4 mg Q6H PRN IV NAUSEA/VOMITING Last administered on 09/10/18 09:43; Admin Dose 4 MG; Start 09/10/18 at 05:00 Nitroglycerin (Nitroglycerin (Sl Tab) 0.4 Mg) 1 tab Q5M PRN SL .CHEST PAIN; Start 09/10/18 at 05:00 Acetaminophen (Tylenol Tab) 650 mg Q6H PRN PO .PAIN 1-3 OR TEMP Last administered on 09/10/18at 12:23; Admin Dose 650 MG; Start 09/10/18 at 05:00 Heparin Sodium (Porcine) (Heparin (5000 Units/1ml)) 5,000 unit Q12 SC Last administered on 09/18/18 09:49; Admin Dose 5,000 UNIT; Start 09/10/18 at 09:00 Albuterol/ Ipratropium (Duoneb) 3 ml Q2H RESP THERAPY PRN HHN SHORTNESS OF BREATH Last administered on 09/10/18at 08:40; Admin Dose 3 ML; Start 09/10/18 at 05:00 Alprazolam (Xanax) 0.5 mg TID PRN PO ANXIETY; Start 09/10/18 at 05:00 Aspirin (Aspirin) 81 mg DAILY PO Last administered on 09/18/18 09:45; Admin Dose 81 MG; Start 09/10/18 at 09:00 Atorvastatin Calcium (Lipitor) 80 mg HS PO Last administered on 09/17/18 21:31; Admin Dose 80 MG; Start 09/10/18 at 21:00 Carvedilol (Coreg) 6.25 mg BID PO Last administered on 09/18/18 09:44; Admin Dose 6.25 MG; Start 09/10/18 at 09:00 Furosemide (Lasix) 40 mg DAILY PO Last administered on 09/18/18 09:44; Admin Dose 40 MG; Start 09/10/18 at 09:00 Gabapentin (Neurontin) 300 mg TID PO Last administered on 09/18/18 09:44; Admin Dose 300 MG; Start 09/10/18 at 09:00 Hydralazine HCl (Apresoline) 10 mg Q12 PO Last administered on 09/18/18 09:44; Admin Dose 10 MG; Start 09/10/18 at 09:00 Isosorbide Dinitrate (Isordil) 20 mg TID PO Last administered on 09/18/18 09:44; Admin Dose 20 MG; Start 09/10/18 at 09:00 Montelukast Sodium (Singulair) 10 mg HS PO Last administered on 09/17/18 21:31; Admin Dose 10 MG; Start 09/10/18 at 21:00 Ranolazine (Ranexa) 1,000 mg Q12 PO Last administered on 09/18/18 09:43; Admin Dose 1,000 MG; Start 09/10/18 at 09:00 Valproic Acid (Depakene) 250 mg BID PO Last administered on 09/18/18 09:43; Admin Dose 250 MG; Start 09/10/18 at 09:00 Fish Oil (Fish Oil) 2,000 mg BID PO Last administered on 09/18/18 09:45; Admin Dose 2,000 MG; Start 09/10/18 at 09:00 Insulin Aspart (Novolog Insulin Pen) NOVOLOG *MODERATE* ALGORITHM WITH MEALS BEDTIME SC Last administered on 09/18/18 09:51; Admin Dose 2 UNIT; Start 09/10 at 07:55 Miscellaneous Information 1 ea NOTE XX ; Start 09/10/18 at 06:00 Glucose (Glutose) 15 gm Q15M PRN PO DECREASED GLUCOSE; Start 09/10/18 at 06:00 Glucose (Glutose) 22.5 gm Q15M PRN PO DECREASED GLUCOSE; Start 09/10/18 at 06:00 Dextrose (D50w Syringe) 25 ml Q15M PRN IV DECREASED GLUCOSE; Start 09/10/18 at 06:00 Dextrose (D50w Syringe) 50 ml Q15M PRN IV DECREASED GLUCOSE; Start 09/10/18 at 06:00 Glucagon (Glucagen) 1 mg Q15M PRN IM DECREASED GLUCOSE; Start 09/10/18 at 06:00 Glucose (Glutose) 15 gm Q15M PRN BUCCAL DECREASED GLUCOSE; Start 09/10/18 at 06:00 Insulin Glargine (Lantus) 44 units DAILY@0800 SC Last administered on 09/18/18at 09:50; Admin Dose 44 UNITS; Start 09/14/18 at 08:00 Insulin Aspart (Novolog Insulin Pen) 12 unit WITH MEALS SC Last administered on 09/18/18at 09:51; Admin Dose 12 UNIT; Start 09/14/18 at 17:55 Daptomycin 470 mg/ Sodium Chloride 100 ml @ 200 mls/hr Q24H IVPB Last administered on 09/17/18at 21:54; Admin Dose 200 MLS/HR; Start 09/16/18 at 22:00 Morphine Sulfate (morphine) 1 mg Q4H PRN IV SEVERE PAIN LEVEL 7-10 Last administered on 09/18/18 09:54; Admin Dose 1 MG; Start 09/17/18 at 17:30 ANDREW BOWLING MD Sep 18, 2018 11:38
[2018-09-18 14:00] VITALS: BP 153/53; PULSE 86; RESP 18
--- NOTE | 2018-09-18 14:26 | CONS ---
Assessment/Plan Assessment/Plan Hospital Course (Demo Recall) No acute changes overnight patient is alert and feels better, looks comfortable, no fevers overnight Microbiology: Blood culture on admission grew beta-hemolytic strep species CT of the abdomen and pelvis on admission revealed retroperitoneal left iliac chain and left inguinal lymphadenopathy with largest lymph node measures 1.5 cm in the left inguinal region. Moderate diffuse peribronchial thickening suggestive of bronchitis with likely superimposed mass mild interstitial edema. Splenomegaly, unchanged since 2017 CT. Antimicrobials: Daptomycin Physical examination: Well-nourished well-developed middle-aged Stateless-speaking man who is alert in no distress. Head atraumatic normocephalic. Neck is supple. Chest rise symmetrical, breath sounds diminished bases. Heart: S1-S2. Abdomen distended soft bowel sounds present. Extremities without cyanosis, LLE swelling/erythema Assessment: 1. S/p sepsis, present on admission 2. Beta-hemolytic strep bacteremia ==>2D echo revealed no vegetations, repeat bld cx neg 3. Acute lymphadenitis and perinodal cellulitis per pathology, status post left groin lymph node biopsy==> neg malignancy 4. Left lower extremity cellulitis 5. Acute kidney failure 6. Diabetes 7. Ischemic cardiomyopathy 7. Obesity 8. PAD Plan: Patient is doing better, vascular surgery recommendations noted, no need for surgical intervention, continue antibiotics for couple more days then switch to oral doxycycline for 7-10 more days, consider compression bandages Discussed with patient Consultation Date/Type/Reason Admit Date/Time Sep 09, 2018 at 21:23 Initial Consult Date 09/10/18 Type of Consult id Requesting Provider: DAVID KLEIN MD Date/Time of Note DATE: 09/18/18 TIME: 14:24 Exam/Review of Systems Exam Vitals Vital Signs Date Temp Pulse Resp B/P (MAP) Pulse Ox O2 O2 Flow FiO2 Time Delivery Rate 09/18/18 Nasal 2.0 08:00 Cannula 09/18/18 97.9 74 18 138/70 94 07:48 (92) Intake and Output 09/17/18 09/17/18 09/18/18 1515:00 23:00 07:00 IntakeIntake Total 700 ml BalanceBalance 700 ml Results Result Diagram: 09/18/18 0538 09/18/18 0538 Results 24hrs Laboratory Tests Test 09/17/18 17:16 09/17/18 21:40 09/18/18 05:37 09/18/18 05:38 Bedside Glucose 108 90 Free Thyroxine 1.26 White Blood Count 6.5 # Red Blood Count 3.98 L Hemoglobin 9.7 L Hematocrit 30.9 L Mean Corpuscular Volume 77.6 L Mean Corpuscular 24.4 L Hemoglobin Mean Corpuscular 31.4 L Hemoglobin Concent Red Cell Distribution 16.4 H Width Platelet Count 245 # Mean Platelet Volume 10.4 Immature Granulocytes % 0.900 H Neutrophils % 64.8 Lymphocytes % 22.6 Monocytes % 8.8 Eosinophils % 2.6 Basophils % 0.3 Nucleated Red Blood 0.0 Cells % Immature Granulocytes # 0.060 H Neutrophils # 4.2 Lymphocytes # 1.5 Monocytes # 0.6 Eosinophils # 0.2 Basophils # 0.0 Nucleated Red Blood 0.0 Cells # Sodium Level 139 Potassium Level 4.5 Chloride Level 106 Carbon Dioxide Level 27 Anion Gap 6 Blood Urea Nitrogen 30 H Creatinine 1.90 H Est Glomerular Filtrat 36 L Rate mL/min Glucose Level 133 Calcium Level 8.5 Magnesium Level 2.0 Total Bilirubin 0.0 L Direct Bilirubin 0.00 Indirect Bilirubin 0.0 Aspartate Amino 50 H Transf (AST/SGOT) Alanine 46 Aminotransferase (ALT/SG PT) Alkaline Phosphatase 249 H Creatine Kinase 28 Creatine Kinase Index 6.9 Creatinine Kinase MB 1.94 (Mass) Troponin I < 0.012 B-Type Natriuretic 5150 H Peptide Total Protein 5.5 L Albumin 2.8 L Globulin 2.70 Albumin/Globulin Ratio 1.03 Triglycerides Level 123 Cholesterol Level 119 LDL Cholesterol, 74 Calculated HDL Cholesterol 20 L Cholesterol/HDL Ratio 5.9 Thyroid Stimulating 0.860 Hormone (TSH) Test 09/18/18 09:40 09/18/18 12:13 Bedside Glucose 173 259 H Medications Medication Current Medications IV Flush (NS 3 ml) 3 ml PER PROTOCOL IV ; Start 09/10/18 at 05:00 Ondansetron HCl (Zofran Inj) 4 mg Q6H PRN IV NAUSEA/VOMITING Last administered on 09/10/18at 09:43; Admin Dose 4 MG; Start 09/10/18 at 05:00 Nitroglycerin (Nitroglycerin (Sl Tab) 0.4 Mg) 1 tab Q5M PRN SL .CHEST PAIN; Start 09/10/18 at 05:00 Acetaminophen (Tylenol Tab) 650 mg Q6H PRN PO .PAIN 1-3 OR TEMP Last administered on 09/10/18 12:23; Admin Dose 650 MG; Start 09/10/18 at 05:00 Heparin Sodium (Porcine) (Heparin (5000 Units/1ml)) 5,000 unit Q12 SC Last administered on 09/18/18 09:49; Admin Dose 5,000 UNIT; Start 09/10/18 at 09:00 Albuterol/ Ipratropium (Duoneb) 3 ml Q2H RESP THERAPY PRN HHN SHORTNESS OF BREATH Last administered on 09/10/18 08:40; Admin Dose 3 ML; Start 09/10/18 at 05:00 Alprazolam (Xanax) 0.5 mg TID PRN PO ANXIETY; Start 09/10/18 at 05:00 Aspirin (Aspirin) 81 mg DAILY PO Last administered on 09/18/18 09:45; Admin Dose 81 MG; Start 09/10/18 at 09:00 Atorvastatin Calcium (Lipitor) 80 mg HS PO Last administered on 09/17/18 21:31; Admin Dose 80 MG; Start 09/10/18 at 21:00 Carvedilol (Coreg) 6.25 mg BID PO Last administered on 09/18/18 09:44; Admin Dose 6.25 MG; Start 09/10/18 at 09:00 Furosemide (Lasix) 40 mg DAILY PO Last administered on 09/18/18 09:44; Admin Dose 40 MG; Start 09/10/18 at 09:00 Gabapentin (Neurontin) 300 mg TID PO Last administered on 09/18/18 13:32; Admin Dose 300 MG; Start 09/10/18 at 09:00 Hydralazine HCl (Apresoline) 10 mg Q12 PO Last administered on 09/18/18 09:44; Admin Dose 10 MG; Start 09/10/18 at 09:00 Isosorbide Dinitrate (Isordil) 20 mg TID PO Last administered on 09/18/18 13:33; Admin Dose 20 MG; Start 09/10/18 at 09:00 Montelukast Sodium (Singulair) 10 mg HS PO Last administered on 09/17/18 21:31; Admin Dose 10 MG; Start 09/10/18 at 21:00 Ranolazine (Ranexa) 1,000 mg Q12 PO Last administered on 09/18/18 09:43; Admin Dose 1,000 MG; Start 09/10/18 at 09:00 Valproic Acid (Depakene) 250 mg BID PO Last administered on 09/18/18 09:43; Admin Dose 250 MG; Start 09/10/18 at 09:00 Fish Oil (Fish Oil) 2,000 mg BID PO Last administered on 09/18/18 09:45; Admin Dose 2,000 MG; Start 09/10/18 at 09:00 Insulin Aspart (Novolog Insulin Pen) NOVOLOG *MODERATE* ALGORITHM WITH MEALS BEDTIME SC Last administered on 09/18/18 12:17; Admin Dose 6 UNIT; Start 09/10/18 at 07:55 Miscellaneous Information 1 ea NOTE XX ; Start 09/10/18 at 06:00 Glucose (Glutose) 15 gm Q15M PRN PO DECREASED GLUCOSE; Start 09/10/18 at 06:00 Glucose (Glutose) 22.5 gm Q15M PRN PO DECREASED GLUCOSE; Start 09/10/18 at 06:00 Dextrose (D50w Syringe) 25 ml Q15M PRN IV DECREASED GLUCOSE; Start 09/10/18 at 06:00 Dextrose (D50w Syringe) 50 ml Q15M PRN IV DECREASED GLUCOSE; Start 09/10/18 at 06:00 Glucagon (Glucagen) 1 mg Q15M PRN IM DECREASED GLUCOSE; Start 09/10/18 at 06:00 Glucose (Glutose) 15 gm Q15M PRN BUCCAL DECREASED GLUCOSE; Start 09/10/18 at 06:00 Insulin Glargine (Lantus) 44 units DAILY@0800 SC Last administered on 09/18/18at 09:50; Admin Dose 44 UNITS; Start 09/14/18 at 08:00 Insulin Aspart (Novolog Insulin Pen) 12 unit WITH MEALS SC Last administered on 09/18/18 12:18; Admin Dose 12 UNIT; Start 09/14/18 at 17:55 Daptomycin 470 mg/ Sodium Chloride 100 ml @ 200 mls/hr Q24H IVPB Last administered on 09/17/18at 21:54; Admin Dose 200 MLS/HR; Start 09/16/18 at 22:00 Morphine Sulfate (morphine) 1 mg Q4H PRN IV SEVERE PAIN LEVEL 7-10 Last administered on 09/18/18at 09:54; Admin Dose 1 MG; Start 09/17/18 at 17:30 BONNIE MONTILLA NP Sep 18, 2018 14:26
--- NOTE | 2018-09-18 17:05 | PN ---
Date/Time of Note Date/Time of Note DATE: 09/18/18 TIME: 17:03 Assessment/Plan VTE Prophylaxis Risk score (from Nsg)>0 risk: 4 SCD applied (from Nsg): Yes Pharmacological prophylaxis: heparin Lines/Catheters IV Catheter Type (from Nrsg): Saline Lock Urinary Cath still in place: No Assessment/Plan Hospital Course 1. LLE swelling and pain: - Concering for arterial insufficiency. Dr Galloway has been consulted however no indication for surgery - Clearly with lymphedema, compression stocking CAD: - Stress test is positive. Management per Dr Everett Type 1 diabetes with hyperglycemia-uncontrolled - Basal/bolus insulin Left inguinal lymphadenopathy: - s/p biopsy, benign CKD - Monitor Ischemic cardiomyopathy (EF 45% in 2016) - continue plavix. Dr Everett plannign for nuclear stress tomorrow History of coronary disease with multiple stents in the past - Continue cardiac meds Hypertension - Continue home meds Prophylaxis: Heparin DC planning: Likely Dc to [facility] given can't ambulate well Result Diagram: 09/18/18 0538 09/18/18 0538 Results 24hrs Laboratory Tests Test 09/17/18 17:16 09/17/18 21:40 09/18/18 05:37 09/18/18 05:38 Bedside Glucose 108 90 Free Thyroxine 1.26 White Blood Count 6.5 # Red Blood Count 3.98 L Hemoglobin 9.7 L Hematocrit 30.9 L Mean Corpuscular Volume 77.6 L Mean Corpuscular 24.4 L Hemoglobin Mean Corpuscular 31.4 L Hemoglobin Concent Red Cell Distribution 16.4 H Width Platelet Count 245 # Mean Platelet Volume 10.4 Immature Granulocytes % 0.900 H Neutrophils % 64.8 Lymphocytes % 22.6 Monocytes % 8.8 Eosinophils % 2.6 Basophils % 0.3 Nucleated Red Blood 0.0 Cells % Immature Granulocytes # 0.060 H Neutrophils # 4.2 Lymphocytes # 1.5 Monocytes # 0.6 Eosinophils # 0.2 Basophils # 0.0 Nucleated Red Blood 0.0 Cells # Sodium Level 139 Potassium Level 4.5 Chloride Level 106 Carbon Dioxide Level 27 Anion Gap 6 Blood Urea Nitrogen 30 H Creatinine 1.90 H Est Glomerular Filtrat 36 L Rate mL/min Glucose Level 133 Calcium Level 8.5 Magnesium Level 2.0 Total Bilirubin 0.0 L Direct Bilirubin 0.00 Indirect Bilirubin 0.0 Aspartate Amino 50 H Transf (AST/SGOT) Alanine 46 Aminotransferase (ALT/SG PT) Alkaline Phosphatase 249 H Creatine Kinase 28 Creatine Kinase Index 6.9 Creatinine Kinase MB 1.94 (Mass) Troponin I < 0.012 B-Type Natriuretic 5150 H Peptide Total Protein 5.5 L Albumin 2.8 L Globulin 2.70 Albumin/Globulin Ratio 1.03 Triglycerides Level 123 Cholesterol Level 119 LDL Cholesterol, 74 Calculated HDL Cholesterol 20 L Cholesterol/HDL Ratio 5.9 Thyroid Stimulating 0.860 Hormone (TSH) Test 09/18/18 09:40 09/18/18 12:13 Bedside Glucose 173 259 H Subjective 24 Hr Interval Summary Free Text/Dictation Stress test positive for reversible ischemia Continued pain in leg, wokring with PT Exam/Review of Systems Exam Vitals Vital Signs Date Temp Pulse Resp B/P (MAP) Pulse Ox O2 O2 Flow FiO2 Time Delivery Rate 09/18/18 2.0 16:27 09/18/18 98.0 86 18 153/53 97 Room Air 14:00 (86) Intake and Output 09/17/18 09/17/18 09/18/18 1515:00 23:00 07:00 IntakeIntake Total 700 ml BalanceBalance 700 ml Constitutional: alert, oriented, well developed Psych: no complaints, nl mood/affect Head: normocephalic, atraumatic Eyes: nl conjunctiva, EOMI, nl lids, nl sclera, PERRL ENMT: nl external ears & nose, nl lips & teeth, nl nasal mucosa & septum Neck: supple, non-tender Respiratory: clear to auscultation, normal air movement Cardiovascular: regular rate and rhythm, nl pulses Gastrointestinal: soft, nl liver, spleen, non-tender Musculoskeletal: nl extremities to inspection, nl gait and stance Extremities: normal pulses 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, nl mental status, nl speech, nl strength Skin: nl turgor; No rash or lesions Lymph: nl lymph nodes Results Results 24hrs Laboratory Tests Test 09/17/18 17:16 09/17/18 21:40 09/18/18 05:37 09/18/18 05:38 Bedside Glucose 108 90 Free Thyroxine 1.26 White Blood Count 6.5 # Red Blood Count 3.98 L Hemoglobin 9.7 L Hematocrit 30.9 L Mean Corpuscular Volume 77.6 L Mean Corpuscular 24.4 L Hemoglobin Mean Corpuscular 31.4 L Hemoglobin Concent Red Cell Distribution 16.4 H Width Platelet Count 245 # Mean Platelet Volume 10.4 Immature Granulocytes % 0.900 H Neutrophils % 64.8 Lymphocytes % 22.6 Monocytes % 8.8 Eosinophils % 2.6 Basophils % 0.3 Nucleated Red Blood 0.0 Cells % Immature Granulocytes # 0.060 H Neutrophils # 4.2 Lymphocytes # 1.5 Monocytes # 0.6 Eosinophils # 0.2 Basophils # 0.0 Nucleated Red Blood 0.0 Cells # Sodium Level 139 Potassium Level 4.5 Chloride Level 106 Carbon Dioxide Level 27 Anion Gap 6 Blood Urea Nitrogen 30 H Creatinine 1.90 H Est Glomerular Filtrat 36 L Rate mL/min Glucose Level 133 Calcium Level 8.5 Magnesium Level 2.0 Total Bilirubin 0.0 L Direct Bilirubin 0.00 Indirect Bilirubin 0.0 Aspartate Amino 50 H Transf (AST/SGOT) Alanine 46 Aminotransferase (ALT/SG PT) Alkaline Phosphatase 249 H Creatine Kinase 28 Creatine Kinase Index 6.9 Creatinine Kinase MB 1.94 (Mass) Troponin I < 0.012 B-Type Natriuretic 5150 H Peptide Total Protein 5.5 L Albumin 2.8 L Globulin 2.70 Albumin/Globulin Ratio 1.03 Triglycerides Level 123 Cholesterol Level 119 LDL Cholesterol, 74 Calculated HDL Cholesterol 20 L Cholesterol/HDL Ratio 5.9 Thyroid Stimulating 0.860 Hormone (TSH) Test 09/18/18 09:40 09/18/18 12:13 Bedside Glucose 173 259 H Medications Medication Current Medications IV Flush (NS 3 ml) 3 ml PER PROTOCOL IV ; Start 09/10/18 at 05:00 Ondansetron HCl (Zofran Inj) 4 mg Q6H PRN IV NAUSEA/VOMITING Last administered on 09/10/18at 09:43; Admin Dose 4 MG; Start 09/10/18 at 05:00 Nitroglycerin (Nitroglycerin (Sl Tab) 0.4 Mg) 1 tab Q5M PRN SL .CHEST PAIN; Start 09/10/18 at 05:00 Acetaminophen (Tylenol Tab) 650 mg Q6H PRN PO .PAIN 1-3 OR TEMP Last administered on 09/10/18at 12:23; Admin Dose 650 MG; Start 09/10/18 at 05:00 Heparin Sodium (Porcine) (Heparin (5000 Units/1ml)) 5,000 unit Q12 SC Last administered on 09/18/18 09:49; Admin Dose 5,000 UNIT; Start 09/10/18 at 09:00 Albuterol/ Ipratropium (Duoneb) 3 ml Q2H RESP THERAPY PRN HHN SHORTNESS OF BREATH Last administered on 09/10/18 08:40; Admin Dose 3 ML; Start 09/10/18 at 05:00 Alprazolam (Xanax) 0.5 mg TID PRN PO ANXIETY; Start 09/10/18 at 05:00 Aspirin (Aspirin) 81 mg DAILY PO Last administered on 09/18/18 09:45; Admin Dose 81 MG; Start 09/10/18 at 09:00 Atorvastatin Calcium (Lipitor) 80 mg HS PO Last administered on 09/17/18 21:31; Admin Dose 80 MG; Start 09/10/18 at 21:00 Carvedilol (Coreg) 6.25 mg BID PO Last administered on 09/18/18 09:44; Admin Dose 6.25 MG; Start 09/10/18 at 09:00 Furosemide (Lasix) 40 mg DAILY PO Last administered on 09/18/18 09:44; Admin Dose 40 MG; Start 09/10/18 at 09:00 Gabapentin (Neurontin) 300 mg TID PO Last administered on 09/18/18 13:32; Admin Dose 300 MG; Start 09/10/18 at 09:00 Hydralazine HCl (Apresoline) 10 mg Q12 PO Last administered on 09/18/18 09:44; Admin Dose 10 MG; Start 09/10/18 at 09:00 Isosorbide Dinitrate (Isordil) 20 mg TID PO Last administered on 09/18/18 13:33; Admin Dose 20 MG; Start 09/10/18 at 09:00 Montelukast Sodium (Singulair) 10 mg HS PO Last administered on 09/17/18 21:31; Admin Dose 10 MG; Start 09/10/18 at 21:00 Ranolazine (Ranexa) 1,000 mg Q12 PO Last administered on 09/18/18 09:43; Admin Dose 1,000 MG; Start 09/10/18 at 09:00 Valproic Acid (Depakene) 250 mg BID PO Last administered on 09/18/18 09:43; Admin Dose 250 MG; Start 09/10/18 at 09:00 Fish Oil (Fish Oil) 2,000 mg BID PO Last administered on 09/18/18 09:45; Admin Dose 2,000 MG; Start 09/10/18 at 09:00 Insulin Aspart (Novolog Insulin Pen) NOVOLOG *MODERATE* ALGORITHM WITH MEALS BEDTIME SC Last administered on 09/18/18 12:17; Admin Dose 6 UNIT; Start 09/10/18 at 07:55 Miscellaneous Information 1 ea NOTE XX ; Start 09/10/18 at 06:00 Glucose (Glutose) 15 gm Q15M PRN PO DECREASED GLUCOSE; Start 09/10/18 at 06:00 Glucose (Glutose) 22.5 gm Q15M PRN PO DECREASED GLUCOSE; Start 09/10/18 at 06:00 Dextrose (D50w Syringe) 25 ml Q15M PRN IV DECREASED GLUCOSE; Start 09/10/18 at 06:00 Dextrose (D50w Syringe) 50 ml Q15M PRN IV DECREASED GLUCOSE; Start 09/10/18 at 06:00 Glucagon (Glucagen) 1 mg Q15M PRN IM DECREASED GLUCOSE; Start 09/10/18 at 06:00 Glucose (Glutose) 15 gm Q15M PRN BUCCAL DECREASED GLUCOSE; Start 09/10/18 at 06:00 Insulin Glargine (Lantus) 44 units DAILY@0800 SC Last administered on 09/18/18 09:50; Admin Dose 44 UNITS; Start 09/14/18 at 08:00 Insulin Aspart (Novolog Insulin Pen) 12 unit WITH MEALS SC Last administered on 09/18/18 12:18; Admin Dose 12 UNIT; Start 09/14/18 at 17:55 Daptomycin 470 mg/ Sodium Chloride 100 ml @ 200 mls/hr Q24H IVPB Last administered on 09/17/18 21:54; Admin Dose 200 MLS/HR; Start 09/16/18 at 22:00 Morphine Sulfate (morphine) 1 mg Q4H PRN IV SEVERE PAIN LEVEL 7-10 Last administered on 09/18/18 14:56; Admin Dose 1 MG; Start 09/17/18 at 17:30 DAVID KLEIN MD Sep 18, 2018 17:05
[2018-09-18 19:38] VITALS: BP 172/77; PULSE 81; RESP 17
[2018-09-18] MEDS: ATORVASTATIN 80 MG TAB PO SCH (20:41)
[2018-09-18] MEDS: MONTELUKAST 10 MG TAB PO SCH (20:41)
[2018-09-18] MEDS: DAPTOMYCIN 470 MG in SOD CHLORIDE 0.9% 100 ML IVPB SCH (21:23)
[2018-09-19 02:00] VITALS: BP 149/76; PULSE 78; RESP 17
[2018-09-19] MEDS: morphine 2 MG INJ IV PRN ×5 (03:22→21:15)
--- NOTE | 2018-09-19 07:19 | CONS ---
Assessment/Plan Assessment/Plan Assessment/Plan (Daily) 1. acute kidney injury due to ATN From pneumonia 2. sepsis due to pneumonia 3. pneumonia, worried about community acquired PNA 4. h/o HTn 5. h/o Myocardial infarction 6. h/o Lithotripsy before for left kidney stone Plan: BUN/Cr improved to 30/1.9, Bp stable- no labs today to review yet IV abx Daptomycin and Vancomycin for PNA and Sepsis, renally dose all abx and monitor electrolyte S/P left groin LN biopsy negative for malignancy , acute lymphadenitis will follow up Consultation Date/Type/Reason Admit Date/Time Sep 09, 2018 at 21:23 Initial Consult Date 09/10/18 Type of Consult NEPHROLOGY Requesting Provider: DAVID KLEIN MD Date/Time of Note DATE: 09/19/18 TIME: :19 Exam/Review of Systems Exam Vitals Vital Signs Date Temp Pulse Resp B/P (MAP) Pulse Ox O2 O2 Flow FiO2 Time Delivery Rate 09/19/18 2.0 05:57 09/19/18 97.9 78 17 149/76 98 02:00 (100) 09/18/18 Nasal 20:00 Cannula Intake and Output 09/18/18 09/18/18 09/19/18 1515:00 23:00 07:00 IntakeIntake Total 480 ml 580 ml BalanceBalance 480 ml 580 ml Exam Constitutional: alert, awake, Respiratory: diminished breath sounds, other (RLL Crackles ) Cardiovascular: regular rate and rhythm Gastrointestinal: soft, non-tender Musculoskeletal: nl extremities to inspection Extremities: normal pulses 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, nl mental status, nl speech, nl strength Results Result Diagram: 09/18/1838 09/18/1838 Results 24hrs Laboratory Tests Test 09/18/18 09:40 09/18/18 12:13 09/18/18 17:17 09/18/18 20:37 Bedside Glucose 173 259 H 172 186 Test 09/19/18 01:47 Bedside Glucose 109 Medications Medication Current Medications IV Flush (NS 3 ml) 3 ml PER PROTOCOL IV ; Start 09/10/18 at 05:00 Ondansetron HCl (Zofran Inj) 4 mg Q6H PRN IV NAUSEA/VOMITING Last administered on 09/10/18at 09:43; Admin Dose 4 MG; Start 09/10/18 at 05:00 Nitroglycerin (Nitroglycerin (Sl Tab) 0.4 Mg) 1 tab Q5M PRN SL .CHEST PAIN; Start 09/10/18 at 05:00 Acetaminophen (Tylenol Tab) 650 mg Q6H PRN PO .PAIN 1-3 OR TEMP Last administered on 09/10/18 12:23; Admin Dose 650 MG; Start 09/10/18 at 05:00 Heparin Sodium (Porcine) (Heparin (5000 Units/1ml)) 5,000 unit Q12 SC Last administered on 09/18/18 20:49; Admin Dose 5,000 UNIT; Start 09/10/18 at 09:00 Albuterol/ Ipratropium (Duoneb) 3 ml Q2H RESP THERAPY PRN HHN SHORTNESS OF BREATH Last administered on 09/10/18 08:40; Admin Dose 3 ML; Start 09/10/18 at 05:00 Alprazolam (Xanax) 0.5 mg TID PRN PO ANXIETY; Start 09/10/18 at 05:00 Aspirin (Aspirin) 81 mg DAILY PO Last administered on 09/18/18 09:45; Admin Dose 81 MG; Start 09/10/18 at 09:00 Atorvastatin Calcium (Lipitor) 80 mg HS PO Last administered on 09/18/18 20:41; Admin Dose 80 MG; Start 09/10/18 at 21:00 Carvedilol (Coreg) 6.25 mg BID PO Last administered on 09/18/18 21:29; Admin Dose 6.25 MG; Start 09/10/18 at 09:00 Furosemide (Lasix) 40 mg DAILY PO Last administered on 09/18/18 09:44; Admin Dose 40 MG; Start 09/10/18 at 09:00 Gabapentin (Neurontin) 300 mg TID PO Last administered on 09/18/18 20:41; Admin Dose 300 MG; Start 09/10/18 at 09:00 Hydralazine HCl (Apresoline) 10 mg Q12 PO Last administered on 09/18/18 20:40; Admin Dose 10 MG; Start 09/10/18 at 09:00 Isosorbide Dinitrate (Isordil) 20 mg TID PO Last administered on 3/7/19at 20:41; Admin Dose 20 MG; Start 09/10/18 at 09:00 Montelukast Sodium (Singulair) 10 mg HS PO Last administered on 09/18/18 20:41; Admin Dose 10 MG; Start 09/10/18 at 21:00 Ranolazine (Ranexa) 1,000 mg Q12 PO Last administered on 09/18/18 20:41; Admin Dose 1,000 MG; Start 09/10/18 at 09:00 Valproic Acid (Depakene) 250 mg BID PO Last administered on 09/18/18 20:41; Admin Dose 250 MG; Start 09/10/18 at 09:00 Fish Oil (Fish Oil) 2,000 mg BID PO Last administered on 09/18/18 21:29; Admin Dose 2,000 MG; Start 09/10/18 at 09:00 Insulin Aspart (Novolog Insulin Pen) NOVOLOG *MODERATE* ALGORITHM WITH MEALS BEDTIME SC Last administered on 09/18/18at 20:50; Admin Dose 1 UNIT; Start 09/10/18 at 07:55 Miscellaneous Information 1 ea NOTE XX ; Start 09/10/18 at 06:00 Glucose (Glutose) 15 gm Q15M PRN PO DECREASED GLUCOSE; Start 09/10/18 at 06:00 Glucose (Glutose) 22.5 gm Q15M PRN PO DECREASED GLUCOSE; Start 09/10/18 at 06:00 Dextrose (D50w Syringe) 25 ml Q15M PRN IV DECREASED GLUCOSE; Start 09/10/18 at 06:00 Dextrose (D50w Syringe) 50 ml Q15M PRN IV DECREASED GLUCOSE; Start 09/10/18 at 06:00 Glucagon (Glucagen) 1 mg Q15M PRN IM DECREASED GLUCOSE; Start 09/10/18 at 06:00 Glucose (Glutose) 15 gm Q15M PRN BUCCAL DECREASED GLUCOSE; Start 09/10/18 at 06:00 Insulin Glargine (Lantus) 44 units DAILY@0800 SC Last administered on 09/18/18at 09:50; Admin Dose 44 UNITS; Start 09/14/18 at 08:00 Insulin Aspart (Novolog Insulin Pen) 12 unit WITH MEALS SC Last administered on 09/18/18at 17:19; Admin Dose 12 UNIT; Start 09/14/18 at 17:55 Daptomycin 470 mg/ Sodium Chloride 100 ml @ 200 mls/hr Q24H IVPB Last administered on 09/18/18at 21:23; Admin Dose 200 MLS/HR; Start 09/16/18 at 22:00 Morphine Sulfate (morphine) 2 mg Q4H PRN IV SEVERE PAIN LEVEL 7-10 Last administered on 09/19/18at 03:22; Admin Dose 2 MG; Start 09/18/18 at 17:30 ANDREW BOWLING MD Sep 19, 2018 07:19
[2018-09-19 07:36] VITALS: BP 131/61; PULSE 77; RESP 18
[2018-09-19] MEDS: INSULIN ASPART [NOVOLOG] 3 ML PEN SC SCH ×7 (08:00→20:31)
--- NOTE | 2018-09-19 08:29 | PN ---
DATE: 09/19/2018 SUBJECTIVE: The patient states that he has left leg pain and tenderness. He has had no shaking chil ls. He is not complaining of chest pain. OBJECTIVE: GENERAL: The patient is a well-developed, obese male in no acute distress. VITAL SIGNS: Temperature 98.1 orally, pulse 77 per minute and regular, respirations 131/61, pulse ox imetry 98% on room air. SKIN: No ecchymosis, no petechiae or rashes. There are stasis changes in the left pretibial area. HEENT: Normocephalic. No evidence of trauma. Pupils equal, round, reactive to light and accommodat ion. Sclerae are nonicteric. Oral mucosa is moist without lesions. NECK: Supple. No jugular venous distention or thyroid enlargement. CHEST: Clear to auscultation and percussion. No rhonchi, wheezes, rales or rubs. There are just ge neralized decreased breath sounds. Rales are no longer audible. HEART: Regular sinus rhythm, no S3, S4 or murmurs. ABDOMEN: Obese without masses or ascites. EXTREMITIES: No clubbing or cyanosis. There is tenderness in the left inguinal area and there is no erythema or warmth to touch at this time. Stasis changes in the distal left lower extremity are unc hanged. The patient has had a SPECT cardiac scan. This shows positive myocardial perfusion with ischemia elaine ng the anterior distal lateral haynes. There is a diminished wall motion and depressed ejection fract ion of 47%. ASSESSMENT: 1. Cellulitis of the left lower extremity, particularly in the proximal area, which is now resolved. 2. Left inguinal lymphadenopathy secondary to #1. 3. Diabetes mellitus. 4. Gram-positive sepsis with beta hemolytic strep and coagulase negative staph. 5. Chronic obstructive pulmonary disease. 6. Ischemic cardiomyopathy. 76. Hypertension. The patient's lymphadenopathy was due to lymphadenitis. There was no growth from the culture, but th e patient did have a beta hemolytic strep bacteremia with 2 positive blood cultures. There is no evidence of malignancy. Main issues now are cardiac. We will see the patient again p.r.n. Dictated By: GEORGE VO MD SR/NTS Conf#: [id number] [place] [address]#: [id number] CC: DAVID KLEIN MD; DERIK LOVE MD; DENNIS LEWIS MD;*[facility]*
[2018-09-19] MEDS: FUROSEMIDE 40 MG TAB PO SCH (08:36)
[2018-09-19] MEDS: RANOLAZINE (SR) 500 MG TAB PO SCH ×2 (08:36→20:27)
[2018-09-19] MEDS: GABAPENTIN 300 MG CAP PO SCH ×3 (08:36→20:26)
[2018-09-19] MEDS: FISH OIL 1,000 MG CAP PO SCH ×2 (08:36→20:27)
[2018-09-19] MEDS: VALPROIC ACID 250 MG CAP PO SCH ×2 (08:36→20:27)
[2018-09-19] MEDS: ASPIRIN 81 MG TAB PO SCH (08:37)
[2018-09-19] MEDS: ISOSORBIDE DINITRATE 20 MG TAB PO SCH ×3 (08:37→20:27)
[2018-09-19] MEDS: HEPARIN 5,000 UNIT/1 ML VIAL SC SCH ×2 (08:41→20:34)
[2018-09-19] MEDS: INSULIN GLARGINE [LANTus] (100 UNITS/ML) SYG SC SCH (08:43)
--- NOTE | 2018-09-19 10:16 | CONS ---
Consult Date/Type/Reason Admit Date/Time Sep 09, 2018 at 21:23 Initial Consult Date 09/17/18 Type of Consultation: cv Requesting Provider: DAVID KLEIN MD Date/Time of Note DATE: 09/19/18 TIME: 10:13 Subjective Cardiology follow-up progress Subjective Case discussed with staff. Patient with no chest pain or pressure now. he has had mild chest pain after stress yesterday He denies palpitation to me. Shortness of breath remains stable his leg pain is better Objective: General: This gentleman no acute distress HEENT: NC/AT. pupils are equal. round. NECK: NO JVD. no stridor. CV: RRR. systolic murmur; no gallop or rubs. PULM: no wheezing or rhonchi. GI: SOFT, obese NT, ND, no rebound or guarding Extremity: + Left lower extremity edema and tenderness to palpation neuro: awake and alert, OX3. Psych: calm and pleasant rectal: deferred : normal EKG has shown normal sinus rhythm. Nonspecific ST abnormality lexiscan 09/18 Stress images: Severe diminished perfusion along the anterior wall, inferior wall, the inferolateral wall, and the distal lateral wall and apex. Rest images: Improved perfusion along the anterior wall of the distal lateral wall. Wall motion: Mildly diminished in a global concentric manner. Ejection fraction: 47%. IMPRESSION: 1. Positive myocardial perfusion scan. 2. Positive ischemia along the anterior and distal lateral haynes. 3. Diminished wall motion with depressed ejection fraction of 47%. Objective Vitals Vital Signs Date Temp Pulse Resp B/P (MAP) Pulse Ox O2 O2 Flow FiO2 Time Delivery Rate 09/19/18 Nasal 2.0 08:00 Cannula 09/19/18 98.1 77 18 131/61 98 07:36 (84) Intake and Output 09/18/18 09/18/18 09/19/18 1414:59 22:59 06:59 IntakeIntake Total 480 ml 580 ml BalanceBalance 480 ml 580 ml Results/Medications Result Diagram: 09/18/18 0538 09/18/18 0538 Results 24 hrs Laboratory Tests Test 09/18/18 12:13 09/18/18 17:17 09/18/18 20:37 09/19/18 01:47 Bedside Glucose 259 H 172 186 109 Test 3/8/19 08:34 Bedside Glucose 93 Home Meds Active Scripts Valproic Acid* (Depakene*) 250 Mg Capsule, 250 MG PO BID for 14 Days, CAP Prov:BRANDON WHITNEY 02/13/17 Tramadol HCl (Tramadol HCl) 50 Mg Tablet, 100 MG PO Q6 PRN for PAIN, #30 TAB Prov:BRANDON WHITNEY 02/13/17 Acyclovir* (Acyclovir*) 800 Mg Tablet, 800 MG PO 5 TIMES DAILY for 7 Days, TAB Prov:BRANDON WHITNEY 02/13/17 Montelukast Sodium* (Montelukast Sodium*) 10 Mg Tablet, 10 MG PO HS, #30 TAB Prov:NARENDRA CHAWLA MD 07/19/16 [place]-3/Dha/Epa/Fish Oil (FISH OIL EC 1,000 MG SOFTGEL) 1 Each Capsule.dr, 2000 MG PO BID, #60 Prov:NARENDRA CHAWLA MD 07/19/16 Isosorbide Dinitrate* (Isosorbide Dinitrate*) 20 Mg Tablet, 20 MG PO TID, #90 TAB Prov:NARENDRA CHAWLA MD 07/19/16 Insulin Glargine* (Lantus*) 100 Unit/Ml Soln, 43 UNIT SC HS for 30 Days Prov:NARENDRA CHAWLA MD 07/19/16 Insulin Aspart* (Novolog Insulin Pen*) 100 Unit/Ml Soln, 15 UNIT SC AC MEALS for 30 Days Prov:NARENDRA CHAWLA MD 07/19/16 Alprazolam* (Alprazolam*) 0.25 Mg Tablet, 0.5 MG PO TID PRN for ANXIETY, #20 TAB Prov:NARENDRA CHAWLA MD 07/19/16 Carvedilol* (Carvedilol*) 12.5 Mg Tablet, 6.25 MG PO BID for 30 Days, #60 TAB Prov:NARENDRA CHAWLA MD 07/19/16 Furosemide (Lasix) 40 Mg Tab, 40 MG PO DAILY for 30 Days, TAB Prov:JESE MCCOY 03/26/16 Gabapentin* (Gabapentin*) 300 Mg Capsule, 300 MG PO TID for 30 Days, CAP Prov:JESE MCCOY 03/26/16 Atorvastatin* (Atorvastatin*) 80 Mg Tablet, 80 MG PO HS for 30 Days, TAB Prov:JESE MCCOY 03/26/16 Aspirin (Aspirin) 81 Mg Chew, 81 MG PO DAILY, #30 TAB 12 Refills Prov:JESE MCCOY 03/26/16 Reported Medications Hydralazine Hcl* (Hydralazine Hcl*) 10 Mg Tablet, 10 MG PO Q12, #120 TAB 02/13/17 Ranolazine* (Ranexa*) 1,000 Mg Tab.sr.12h, 1000 MG PO Q12, TAB 06/08/16 Medications Current Medications IV Flush (NS 3 ml) 3 ml PER PROTOCOL IV ; Start 09/10/18 at 05:00 Ondansetron HCl (Zofran Inj) 4 mg Q6H PRN IV NAUSEA/VOMITING Last administered on 09/10/18 09:43; Admin Dose 4 MG; Start 09/10/18 at 05:00 Nitroglycerin (Nitroglycerin (Sl Tab) 0.4 Mg) 1 tab Q5M PRN SL .CHEST PAIN; Start 09/10/18 at 05:00 Acetaminophen (Tylenol Tab) 650 mg Q6H PRN PO .PAIN 1-3 OR TEMP Last administered on 09/10/18 12:23; Admin Dose 650 MG; Start 09/10/18 at 05:00 Heparin Sodium (Porcine) (Heparin (5000 Units/1ml)) 5,000 unit Q12 SC Last administered on 09/19/18 08:41; Admin Dose 5,000 UNIT; Start 09/10/18 at 09:00 Albuterol/ Ipratropium (Duoneb) 3 ml Q2H RESP THERAPY PRN HHN SHORTNESS OF BREATH Last administered on 09/10/18 08:40; Admin Dose 3 ML; Start 09/10/18 at 05:00 Alprazolam (Xanax) 0.5 mg TID PRN PO ANXIETY; Start 09/10/18 at 05:00 Aspirin (Aspirin) 81 mg DAILY PO Last administered on 09/19/18 08:37; Admin Dose 81 MG; Start 09/10/18 at 09:00 Atorvastatin Calcium (Lipitor) 80 mg HS PO Last administered on 09/18/18 20:41; Admin Dose 80 MG; Start 09/10/18 at 21:00 Carvedilol (Coreg) 6.25 mg BID PO Last administered on 09/19/18 08:37; Admin Dose 6.25 MG; Start 09/10/18 at 09:00 Furosemide (Lasix) 40 mg DAILY PO Last administered on 09/19/18 08:36; Admin Dose 40 MG; Start 09/10/18 at 09:00 Gabapentin (Neurontin) 300 mg TID PO Last administered on 09/19/18 08:36; Admin Dose 300 MG; Start 09/10/18 at 09:00 Hydralazine HCl (Apresoline) 10 mg Q12 PO Last administered on 09/19/18 08:36; Admin Dose 10 MG; Start 09/10/18 at 09:00 Isosorbide Dinitrate (Isordil) 20 mg TID PO Last administered on 09/19/18 08:37; Admin Dose 20 MG; Start 09/10/18 at 09:00 Montelukast Sodium (Singulair) 10 mg HS PO Last administered on 09/18/18 20:41; Admin Dose 10 MG; Start 09/10/18 at 21:00 Ranolazine (Ranexa) 1,000 mg Q12 PO Last administered on 09/19/18 08:36; Admin Dose 1,000 MG; Start 09/10/18 at 09:00 Valproic Acid (Depakene) 250 mg BID PO Last administered on 09/19/18 08:36; Admin Dose 250 MG; Start 09/10/18 at 09:00 Fish Oil (Fish Oil) 2,000 mg BID PO Last administered on 09/19/18 08:36; Admin Dose 2,000 MG; Start 09/10/18 at 09:00 Insulin Aspart (Novolog Insulin Pen) NOVOLOG *MODERATE* ALGORITHM WITH MEALS BEDTIME SC Last administered on 09/18/18 20:50; Admin Dose 1 UNIT; Start 09/10/18 at 07:55 Miscellaneous Information 1 ea NOTE XX ; Start 09/10/18 at 06:00 Glucose (Glutose) 15 gm Q15M PRN PO DECREASED GLUCOSE; Start 09/10/18 at 06:00 Glucose (Glutose) 22.5 gm Q15M PRN PO DECREASED GLUCOSE; Start 09/10/18 at 06:00 Dextrose (D50w Syringe) 25 ml Q15M PRN IV DECREASED GLUCOSE; Start 09/10/18 at 06:00 Dextrose (D50w Syringe) 50 ml Q15M PRN IV DECREASED GLUCOSE; Start 09/10/18 at 06:00 Glucagon (Glucagen) 1 mg Q15M PRN IM DECREASED GLUCOSE; Start 09/10/18 at 06:00 Glucose (Glutose) 15 gm Q15M PRN BUCCAL DECREASED GLUCOSE; Start 09/10/18 at 06:00 Insulin Glargine (Lantus) 44 units DAILY@0800 SC Last administered on 09/19/18at 08:43; Admin Dose 44 UNITS; Start 09/14/18 at 08:00 Insulin Aspart (Novolog Insulin Pen) 12 unit WITH MEALS SC Last administered on 09/19/18at 08:42; Admin Dose 12 UNIT; Start 09/14/18 at 17:55 Daptomycin 470 mg/ Sodium Chloride 100 ml @ 200 mls/hr Q24H IVPB Last administered on 09/18/18at 21:23; Admin Dose 200 MLS/HR; Start 09/16/18 at 22:00 Morphine Sulfate (morphine) 2 mg Q4H PRN IV SEVERE PAIN LEVEL 7-10 Last administered on 09/19/18at 08:48; Admin Dose 2 MG; Start 09/18/18 at 17:30 Assessment/Plan Hospital Course (Demo Recall) 1. Chest pain consistent with angina: but clinically appears stable now but with abnormal stress test 2. Sepsis/bacteremia 3. Acute renal failure 4. Diabetes 5. Hypertension 6. History of coronary artery disease or multiple PCI 7. History of smoking 8. Peripheral vascular disease Recommendations: Antibiotic management as per internal medicine and ID recommendations Continue with aspirin inc Beta-hugo as tolerated Patient will need to have a coronary angiogram and possible PCI done. However given his acute renal failure and relatively stable symptom at this point the benefit does not outweigh the risks. Recommend continuation of medical therapy for now. Renal function to be checked in about 2 weeks and if improves to his baseline at that time patient to have coronary angiogram and possible PCI done. Okay for discharge from the cardiac standpoint. Patient however was advised to come back to emergency room if he has recurrence of chest pain Patient has been given my information to follow with me in about a week Thank you for his referral will continue to follow along with you as needed basis REESE TAVERA MD FACC REESE TAVERA MD Sep 19, 2018 10:16
[2018-09-19 14:00] VITALS: BP 119/54; PULSE 78; RESP 18
--- NOTE | 2018-09-19 15:41 | CONS ---
Assessment/Plan Assessment/Plan Hospital Course (Demo Recall) Patient is alert feels much better looks comfortable swelling below the knee resolved, erythema persists, the foot is still swollen, no fevers Microbiology: Blood culture on admission grew beta-hemolytic strep species CT of the abdomen and pelvis on admission revealed retroperitoneal left iliac chain and left inguinal lymphadenopathy with largest lymph node measures 1.5 cm in the left inguinal region. Moderate diffuse peribronchial thickening suggestive of bronchitis with likely superimposed mass mild interstitial edema. Splenomegaly, unchanged since 2017 CT. Antimicrobials: Daptomycin Physical examination: Well-nourished well-developed middle-aged [place]-speaking man who is alert in no distress. Head atraumatic normocephalic. Neck is supple. Chest rise symmetrical, breath sounds diminished bases. Heart: S1-S2. Abdomen distended soft bowel sounds present. Extremities without cyanosis, LLE swelling/erythema Assessment: 1. S/p sepsis, present on admission 2. Beta-hemolytic strep bacteremia ==>2D echo revealed no vegetations, repeat bld cx neg 3. Acute lymphadenitis and perinodal cellulitis per pathology, status post left groin lymph node biopsy==> neg malignancy 4. Left lower extremity cellulitis 5. Acute kidney failure 6. Diabetes 7. Ischemic cardiomyopathy 7. Obesity 8. PAD Plan: Patient is doing better, continue antibiotics for couple more days then switch to oral doxycycline for 7-10 more days, consider compression bandages Discussed with patient Consultation Date/Type/Reason Admit Date/Time Sep 09, 2018 at 21:23 Initial Consult Date 09/10/18 Type of Consult id Requesting Provider: DAVID KLEIN MD Date/Time of Note DATE: 09/19/18 TIME: 15:40 Exam/Review of Systems Exam Vitals Vital Signs Date Temp Pulse Resp B/P (MAP) Pulse Ox O2 O2 Flow FiO2 Time Delivery Rate 09/19/18 97.9 78 18 119/54 97 Room Air 14:00 (75) 09/19/18 2.0 08:00 Intake and Output 09/18/18 09/18/18 09/19/18 1515:00 23:00 07:00 IntakeIntake Total 480 ml 580 ml BalanceBalance 480 ml 580 ml Results Result Diagram: 09/18/18 0538 09/18/18 0538 Results 24hrs Laboratory Tests Test 09/18/18 17:17 09/18/18 20:37 09/19/18 01:47 09/19/18 08:34 Bedside Glucose 172 186 109 93 Test 09/19/18 12:04 Bedside Glucose 194 Medications Medication Current Medications IV Flush (NS 3 ml) 3 ml PER PROTOCOL IV ; Start 09/10/18 at 05:00 Ondansetron HCl (Zofran Inj) 4 mg Q6H PRN IV NAUSEA/VOMITING Last administered on 09/10/18 09:43; Admin Dose 4 MG; Start 09/10/18 at 05:00 Nitroglycerin (Nitroglycerin (Sl Tab) 0.4 Mg) 1 tab Q5M PRN SL .CHEST PAIN; Start 09/10/18 at 05:00 Acetaminophen (Tylenol Tab) 650 mg Q6H PRN PO .PAIN 1-3 OR TEMP Last administered on 09/10/18 12:23; Admin Dose 650 MG; Start 09/10/18 at 05:00 Heparin Sodium (Porcine) (Heparin (5000 Units/1ml)) 5,000 unit Q12 SC Last administered on 09/19/18 08:41; Admin Dose 5,000 UNIT; Start 09/10/18 at 09:00 Albuterol/ Ipratropium (Duoneb) 3 ml Q2H RESP THERAPY PRN HHN SHORTNESS OF BREATH Last administered on 09/10/18 08:40; Admin Dose 3 ML; Start 09/10/18 at 05:00 Alprazolam (Xanax) 0.5 mg TID PRN PO ANXIETY; Start 09/10/18 at 05:00 Aspirin (Aspirin) 81 mg DAILY PO Last administered on 09/19/18 08:37; Admin Dose 81 MG; Start 09/10/18 at 09:00 Atorvastatin Calcium (Lipitor) 80 mg HS PO Last administered on 09/18/18 20:41; Admin Dose 80 MG; Start 09/10/18 at 21:00 Furosemide (Lasix) 40 mg DAILY PO Last administered on 09/19/18 08:36; Admin Dose 40 MG; Start 09/10/18 at 09:00 Gabapentin (Neurontin) 300 mg TID PO Last administered on 09/19/18 12:06; Admin Dose 300 MG; Start 09/10/18 at 09:00 Hydralazine HCl (Apresoline) 10 mg Q12 PO Last administered on 09/19/18 08:36; Admin Dose 10 MG; Start 09/10/18 at 09:00 Isosorbide Dinitrate (Isordil) 20 mg TID PO Last administered on 09/19/18 12:06; Admin Dose 20 MG; Start 09/10/18 at 09:00 Montelukast Sodium (Singulair) 10 mg HS PO Last administered on 09/18/18 20:41; Admin Dose 10 MG; Start 09/10/18 at 21:00 Ranolazine (Ranexa) 1,000 mg Q12 PO Last administered on 09/19/18 08:36; Admin Dose 1,000 MG; Start 09/10/18 at 09:00 Valproic Acid (Depakene) 250 mg BID PO Last administered on 09/19/18 08:36; Admin Dose 250 MG; Start 09/10/18 at 09:00 Fish Oil (Fish Oil) 2,000 mg BID PO Last administered on 09/19/18 08:36; Admin Dose 2,000 MG; Start 09/10/18 at 09:00 Insulin Aspart (Novolog Insulin Pen) NOVOLOG *MODERATE* ALGORITHM WITH MEALS BEDTIME SC Last administered on 09/19/18 12:44; Admin Dose 4 UNIT; Start 09/10/18 at 07:55 Miscellaneous Information 1 ea NOTE XX ; Start 09/10/18 at 06:00 Glucose (Glutose) 15 gm Q15M PRN PO DECREASED GLUCOSE; Start 09/10/18 at 06:00 Glucose (Glutose) 22.5 gm Q15M PRN PO DECREASED GLUCOSE; Start 09/10/18 at 06:00 Dextrose (D50w Syringe) 25 ml Q15M PRN IV DECREASED GLUCOSE; Start 09/10/18 at 06:00 Dextrose (D50w Syringe) 50 ml Q15M PRN IV DECREASED GLUCOSE; Start 09/10/18 at 06:00 Glucagon (Glucagen) 1 mg Q15M PRN IM DECREASED GLUCOSE; Start 09/10/18 at 06:00 Glucose (Glutose) 15 gm Q15M PRN BUCCAL DECREASED GLUCOSE; Start 09/10/18 at 06:00 Insulin Glargine (Lantus) 44 units DAILY@0800 SC Last administered on 09/19/18 08:43; Admin Dose 44 UNITS; Start 09/14/18 at 08:00 Insulin Aspart (Novolog Insulin Pen) 12 unit WITH MEALS SC Last administered on 09/19/18 12:45; Admin Dose 12 UNIT; Start 09/14/18 at 17:55 Daptomycin 470 mg/ Sodium Chloride 100 ml @ 200 mls/hr Q24H IVPB Last administered on 09/18/18 21:23; Admin Dose 200 MLS/HR; Start 09/16/18 at 22:00 Morphine Sulfate (morphine) 2 mg Q4H PRN IV SEVERE PAIN LEVEL 7-10 Last admin istered on 09/19/18 12:57; Admin Dose 2 MG; Start 09/18/18 at 17:30 Carvedilol (Coreg) 12.5 mg BID PO ; Start 09/19/18 at 21:00 Influenza Virus Vaccine Quadrival (Fluzone) 0.5 ml ONCE ONCE IM* Last adm inistered on 09/19/18 15:35; Admin Dose 0.5 ML; Start 09/19/18 at 16:00; Stop 09/19/18 at 16:01 BONNIE MONTILLA NP Sep 19, 2018 15:41
[2018-09-19] MEDS ORDERED: INFLUENZA VIRUS VACCINE 0.5 ML (DISPENSING) IM* ONE (16:00)
--- NOTE | 2018-09-19 16:57 | PN ---
Date/Time of Note Date/Time of Note DATE: 09/19/18 TIME: 16:55 Assessment/Plan VTE Prophylaxis Risk score (from Nsg)>0 risk: 1 SCD applied (from Nsg): Yes Pharmacological prophylaxis: heparin Lines/Catheters IV Catheter Type (from Nrsg): [place] Urinary Cath still in place: No Assessment/Plan Hospital Course 1. LLE swelling and pain: - Concering for arterial insufficiency. Dr Galloway has been consulted however no indication for surgery - Clearly with lymphedema, compression stocking needed Strep bactremia: - Daptomycin while in house, dc with doxy CAD: - Stress test is positive. Management per Dr Everett Type 1 diabetes with hyperglycemia-uncontrolled - Basal/bolus insulin Left inguinal lymphadenopathy: - s/p biopsy, benign CKD - Monitor Ischemic cardiomyopathy (EF 45% in 2016) - continue plavix. STress test positive, medical management History of coronary disease with multiple stents in the past - Continue cardiac meds Hypertension - Continue home meds Prophylaxis: Heparin DC planning: Likely dc home tomorrow Result Diagram: 09/18/18 0538 09/18/18 0538 Results 24hrs Laboratory Tests Test 09/18/18 17:17 09/18/18 20:37 09/19/18 01:47 09/19/18 08:34 Bedside Glucose 172 186 109 93 Test 09/19/18 12:04 Bedside Glucose 194 Subjective 24 Hr Interval Summary Free Text/Dictation Pain improved Stress test positive but no additional intervention per Dr Everett Ready to go home tomorrow Exam/Review of Systems Exam Vitals Vital Signs Date Temp Pulse Resp B/P (MAP) Pulse Ox O2 O2 Flow FiO2 Time Delivery Rate 09/19/18 97.9 78 18 119/54 97 Room Air 14:00 (75) 09/19/18 2.0 08:00 Intake and Output 09/18/18 09/18/18 09/19/18 1414:59 22:59 06:59 IntakeIntake Total 480 ml 580 ml BalanceBalance 480 ml 580 ml Constitutional: alert, oriented, well developed Psych: no complaints, nl mood/affect Head: normocephalic, atraumatic Eyes: nl conjunctiva, EOMI, nl lids, nl sclera, PERRL ENMT: nl external ears & nose, nl lips & teeth, nl nasal mucosa & septum Neck: supple, non-tender Respiratory: clear to auscultation, normal air movement Cardiovascular: regular rate and rhythm, nl pulses Gastrointestinal: soft, nl liver, spleen, non-tender Musculoskeletal: nl extremities to inspection, nl gait and stance Extremities: normal pulses 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: SHELTER MONITOR II-XII intact, nl mental status, nl speech, nl strength Skin: nl turgor; No rash or lesions Lymph: nl lymph nodes Results Results 24hrs Laboratory Tests Test 09/18/18 17:17 09/18/18 20:37 09/19/18 01:47 09/19/18 08:34 Bedside Glucose 172 186 109 93 Test 09/19/18 12:04 Bedside Glucose 194 Medications Medication Current Medications IV Flush (NS 3 ml) 3 ml PER PROTOCOL IV ; Start 09/10/18 at 05:00 Ondansetron HCl (Zofran Inj) 4 mg Q6H PRN IV NAUSEA/VOMITING Last administered on 09/10/18 09:43; Admin Dose 4 MG; Start 09/10/18 at 05:00 Nitroglycerin (Nitroglycerin (Sl Tab) 0.4 Mg) 1 tab Q5M PRN SL .CHEST PAIN; Start 09/10/18 at 05:00 Acetaminophen (Tylenol Tab) 650 mg Q6H PRN PO .PAIN 1-3 OR TEMP Last administered on 09/10/18 12:23; Admin Dose 650 MG; Start 09/10/18 at 05:00 Heparin Sodium (Porcine) (Heparin (5000 Units/1ml)) 5,000 unit Q12 SC Last administered on 09/19/18 08:41; Admin Dose 5,000 UNIT; Start 09/10/18 at 09:00 Albuterol/ Ipratropium (Duoneb) 3 ml Q2H RESP THERAPY PRN HHN SHORTNESS OF BREATH Last administered on 09/10/18 08:40; Admin Dose 3 ML; Start 09/10/18 at 05:00 Alprazolam (Xanax) 0.5 mg TID PRN PO ANXIETY; Start 09/10/18 at 05:00 Aspirin (Aspirin) 81 mg DAILY PO Last administered on 09/19/18 08:37; Admin Dose 81 MG; Start 09/10/18 at 09:00 Atorvastatin Calcium (Lipitor) 80 mg HS PO Last administered on 09/18/18 20:41; Admin Dose 80 MG; Start 09/10/18 at 21:00 Furosemide (Lasix) 40 mg DAILY PO Last administered on 09/19/18 08:36; Admin Dose 40 MG; Start 09/10/18 at 09:00 Gabapentin (Neurontin) 300 mg TID PO Last administered on 09/19/18 12:06; Admin Dose 300 MG; Start 09/10/18 at 09:00 Hydralazine HCl (Apresoline) 10 mg Q12 PO Last administered on 09/19/18 08:36; Admin Dose 10 MG; Start 09/10/18 at 09:00 Isosorbide Dinitrate (Isordil) 20 mg TID PO Last administered on 09/19/18 12:06; Admin Dose 20 MG; Start 09/10/18 at 09:00 Montelukast Sodium (Singulair) 10 mg HS PO Last administered on 09/18/18 20:41; Admin Dose 10 MG; Start 09/10/18 at 21:00 Ranolazine (Ranexa) 1,000 mg Q12 PO Last administered on 09/19/18 08:36; Admin Dose 1,000 MG; Start 09/10/18 at 09:00 Valproic Acid (Depakene) 250 mg BID PO Last administered on 09/19/18 08:36; Admin Dose 250 MG; Start 09/10/18 at 09:00 Fish Oil (Fish Oil) 2,000 mg BID PO Last administered on 09/19/18 08:36; Admin Dose 2,000 MG; Start 09/10/18 at 09:00 Insulin Aspart (Novolog Insulin Pen) NOVOLOG *MODERATE* ALGORITHM WITH MEALS BEDTIME SC Last administered on 09/19/18 12:44; Admin Dose 4 UNIT; Start 09/10/18 at 07:55 Miscellaneous Information 1 ea NOTE XX ; Start 09/10/18 at 06:00 Glucose (Glutose) 15 gm Q15M PRN PO DECREASED GLUCOSE; Start 09/10/18 at 06:00 Glucose (Glutose) 22.5 gm Q15M PRN PO DECREASED GLUCOSE; Start 09/10/18 at 06:00 Dextrose (D50w Syringe) 25 ml Q15M PRN IV DECREASED GLUCOSE; Start 09/10/18 at 06:00 Dextrose (D50w Syringe) 50 ml Q15M PRN IV DECREASED GLUCOSE; Start 09/10/18 at 06:00 Glucagon (Glucagen) 1 mg Q15M PRN IM DECREASED GLUCOSE; Start 09/10/18 at 06:00 Glucose (Glutose) 15 gm Q15M PRN BUCCAL DECREASED GLUCOSE; Start 09/10/18 at 06:00 Insulin Glargine (Lantus) 44 units DAILY@0800 SC Last administered on 09/19/18 08:43; Admin Dose 44 UNITS; Start 09/14/18 at 08:00 Insulin Aspart (Novolog Insulin Pen) 12 unit WITH MEALS SC Last administered on 09/19/18 12:45; Admin Dose 12 UNIT; Start 09/14/18 at 17:55 Daptomycin 470 mg/ Sodium Chloride 100 ml @ 200 mls/hr Q24H IVPB Last administered on 09/18/18 21:23; Admin Dose 200 MLS/HR; Start 09/16/18 at 22:00 Morphine Sulfate (morphine) 2 mg Q4H PRN IV SEVERE PAIN LEVEL 7-10 Last administered on 09/19/18 12:57; Admin Dose 2 MG; Start 09/18/18 at 17:30 Carvedilol (Coreg) 12.5 mg BID PO ; Start 09/19/18 at 21:00 DAVID KLEIN MD Sep 19, 2018 16:56
[2018-09-19 19:48] VITALS: BP 135/63; PULSE 85; RESP 18
[2018-09-19] MEDS: MONTELUKAST 10 MG TAB PO SCH (20:26)
[2018-09-19] MEDS: ATORVASTATIN 80 MG TAB PO SCH (20:27)
[2018-09-19] MEDS: DAPTOMYCIN 470 MG in SOD CHLORIDE 0.9% 100 ML IVPB SCH (21:15)
[2018-09-20 02:10] VITALS: BP 137/77; PULSE 76; RESP 18
[2018-09-20] MEDS: morphine 2 MG INJ IV PRN ×2 (04:57→10:09)
[2018-09-20 08:00] VITALS: BP 146/67; PULSE 87; RESP 18
[2018-09-20] MEDS: INSULIN GLARGINE [LANTus] (100 UNITS/ML) SYG SC SCH (08:35)
[2018-09-20] MEDS: INSULIN ASPART [NOVOLOG] 3 ML PEN SC SCH ×2 (08:36→08:37)
[2018-09-20] MEDS: GABAPENTIN 300 MG CAP PO SCH (08:37)
[2018-09-20] MEDS: FISH OIL 1,000 MG CAP PO SCH (08:37)
[2018-09-20] MEDS: HEPARIN 5,000 UNIT/1 ML VIAL SC SCH (08:37)
[2018-09-20] MEDS: ASPIRIN 81 MG TAB PO SCH (08:37)
[2018-09-20] MEDS: FUROSEMIDE 40 MG TAB PO SCH (08:38)
[2018-09-20] MEDS: VALPROIC ACID 250 MG CAP PO SCH (08:38)
[2018-09-20] MEDS: RANOLAZINE (SR) 500 MG TAB PO SCH (08:38)
[2018-09-20] MEDS: ISOSORBIDE DINITRATE 20 MG TAB PO SCH (08:48)
[2018-09-20] MEDS ORDERED: DOXY100T20 PO (09:31)
--- NOTE | 2018-09-20 09:34 | PDOCDIS ---
Discharge Instructions DIAGNOSIS Discharge Diagnosis Strep bacteremia PAD Cellulitis Coronary artery disease CONDITION [id number] Patient Condition: [id number] DAVID Hollins MD Sep 20, 2018 09:33
--- NOTE | 2018-09-20 09:36 | DS ---
Date/Time of Note Date/Time of Note DATE: 09/20/18 TIME: 09:34 Discharge Summary Admission/Discharge Info Admit Date/Time Sep 09, 2018 at 21:23 Discharge Date/Time Discharge Diagnosis Strep bacteremia PAD Cellulitis Coronary artery disease Patient Condition: Stable Hospital Course Patient presented with LLE swelling and pain. He was found to have cellulitis and treated with IV antibiotics per guidance of ID service. Also found to have strep bacteremia and treated with IV daptomycin and discharged to complete course of doxycline He continue to have leg/calf pain. Arterial ultrasound was performed showing significant PAD. Dr Galloway from vascular was consulted however no indication for surgery He had significant lymphadenopathy of his pelvis. A node was biopsied and was benign. He also reported chronic anginal symptoms. Dr Everett performed nuclear stress which was positive for ischemia. He recommended medical management The patient's leg pain improved. He worked with PT and was cleared to go home at discharge. Home Meds Active Scripts Valproic Acid* (Depakene*) 250 Mg Capsule, 250 MG PO BID for 14 Days, CAP Prov:BRANDON WHITNEY 02/13/17 Tramadol HCl (Tramadol HCl) 50 Mg Tablet, 100 MG PO Q6 PRN for PAIN, #30 TAB Prov:BRANDON WHITNEY 02/13/17 Acyclovir* (Acyclovir*) 800 Mg Tablet, 800 MG PO 5 TIMES DAILY for 7 Days, TAB Prov:BRANDON WHITNEY 02/13/17 Montelukast Sodium* (Montelukast Sodium*) 10 Mg Tablet, 10 MG PO HS, #30 TAB Prov:NARENDRA CHAWLA MD 07/19/16 [place]-3/Dha/Epa/Fish Oil (FISH OIL EC 1,000 MG SOFTGEL) 1 Each Capsule., 2000 MG PO BID, #60 Prov:NARENDRA CHAWLA MD 07/19/16 Isosorbide Dinitrate* (Isosorbide Dinitrate*) 20 Mg Tablet, 20 MG PO TID, #90 TAB Prov:NARENDRA CHAWLA MD 07/19/16 Insulin Glargine* (Lantus*) 100 Unit/Ml Soln, 43 UNIT SC HS for 30 Days Prov:NARENDRA CHAWLA MD 07/19/16 Insulin Aspart* (Novolog Insulin Pen*) 100 Unit/Ml Soln, 15 UNIT SC AC MEALS for 30 Days Prov:NARENDRA CHAWLA MD 07/19/16 Alprazolam* (Alprazolam*) 0.25 Mg Tablet, 0.5 MG PO TID PRN for ANXIETY, #20 TAB Prov:NARENDRA CHAWLA MD 07/19/16 Carvedilol* (Carvedilol*) 12.5 Mg Tablet, 6.25 MG PO BID for 30 Days, #60 TAB Prov:NARENDRA CHAWLA MD 07/19/16 Furosemide (Lasix) 40 Mg Tab, 40 MG PO DAILY for 30 Days, TAB Prov:JESE MCCOY 03/26/16 Gabapentin* (Gabapentin*) 300 Mg Capsule, 300 MG PO TID for 30 Days, CAP Prov:JESE MCCOY 03/26/16 Atorvastatin* (Atorvastatin*) 80 Mg Tablet, 80 MG PO HS for 30 Days, TAB Prov:JESE MCCOY 03/26/16 Aspirin (Aspirin) 81 Mg Chew, 81 MG PO DAILY, #30 TAB 12 Refills Prov:JESE MCCOY 03/26/16 Reported Medications Hydralazine Hcl* (Hydralazine Hcl*) 10 Mg Tablet, 10 MG PO Q12, #120 TAB 02/13/17 Ranolazine* (Ranexa*) 1,000 Mg Tab.sr.12h, 1000 MG PO Q12, TAB 06/08/16 Primary Care Provider [facility] Comprehensive H.c. Pending Labs Laboratory Tests Test 09/19/18 12:04 09/19/18 17:06 09/19/18 20:30 09/20/18 08:22 Bedside 194 95 128 147 Glucose mg/dL (70-220) mg/dL (70-220) mg/dL (70-220) mg/dL (70-220) DAVID KLEIN MD Sep 20, 2018 09:36
== END 2018-09-20 12:15 | disposition home health service (06) | DRG 853 ==
LOC: E/R 14:48 → TEL 21:23 → 5EC 09-16 01:02
PROVIDERS: ADMIT Internal Medicine; ATTEND Internal Medicine
PROC: 07BJ3ZX Excision of Left Inguinal Lymphatic, Percutaneous Approach, Diagnostic (ICD-10-PCS; principal; 2018-09-11)
DX: A41.9 Sepsis, unspecified organism (principal); N17.0 Acute kidney failure with tubular necrosis; J13 Pneumonia due to Streptococcus pneumoniae; L03.116 Cellulitis of left lower limb; E10.65 Type 1 diabetes mellitus with hyperglycemia; I12.9 Hypertensive chronic kidney disease with stage 1 through stage 4 chronic kidney disease, or unspecified chronic kidney disease; E10.22 Type 1 diabetes mellitus with diabetic chronic kidney disease; N18.9 Chronic kidney disease, unspecified; I25.5 Ischemic cardiomyopathy; E78.5 Hyperlipidemia, unspecified; R59.0 Localized enlarged lymph nodes; J20.9 Acute bronchitis, unspecified; I25.119 Atherosclerotic heart disease of native coronary artery with unspecified angina pectoris; B95.4 Other streptococcus as the cause of diseases classified elsewhere; J44.9 Chronic obstructive pulmonary disease, unspecified; I73.9 Peripheral vascular disease, unspecified; F17.210 Nicotine dependence, cigarettes, uncomplicated; E66.9 Obesity, unspecified; Z68.38 Body mass index [BMI] 38.0-38.9, adult; I25.2 Old myocardial infarction; Z79.82 Long term (current) use of aspirin; Z79.4 Long term (current) use of insulin; Z95.5 Presence of coronary angioplasty implant and graft
CPT/HCPCS: 36415; 71045; 74176; 76775; 78452; 80048; 80053; 80061; 80202; 81001; 81003; 82550; 82553; 82570; 82784; 82962; 83036; 83605; 83615; 83735; 83880; 84100; 84155; 84165; 84300; 84439; 84443; 84484; 84560; 85025; 85610; 85730; 86320; 86703; 87040; 87070; 87075; 87086; 87102; 87116; 87400; 88307; 88313; 89190; 90686; 92610; 93005; 93017; 93306; 93922; 93970; 94644; 94664; 96374; 96375; 97110; 97116; 97162; 97530; A9500; A9505; J0456; J0692; J0696; J1644; J1815; J1940; J2270; J2405; J2785; J3370; J7030; J7040; J7050; L4386